=== PATIENT | male | born 1940 | race Caucasian/White ===

== ENCOUNTER → 2020-05-13 12:11 | Outpatient (BNVA) | payer MEDICARE, SELFPAY | PROVIDERS: PCP Nurse Practitioner Family; Referring Provider Nurse Practitioner Family; Visit Provider Internal Medicine | DX: E21.3 Hyperparathyroidism, unspecified (principal); M85.80 Other specified disorders of bone density and structure, unspecified site; E55.9 Vitamin D deficiency, unspecified; E04.2 Nontoxic multinodular goiter; Z79.899 Other long term (current) drug therapy | CPT/HCPCS: Q3014 ==

== ENCOUNTER 2020-07-15 06:19 | Outpatient (REF) | payer MEDICARE, SELFPAY ==
[2020-07-15 11:20] LABS: Hematocrit 47.8 % (42-52); Hemoglobin 15.6 g/dl (14.0-18.0); Mean Corpuscular HGB Conc 32.6 g/dl (31.0-36.0); Mean Corpuscular Hemoglobin 32.5 pg (27.0-33.0); Mean Corpuscular Volume 99.6 fL (80-98); Mean Platelet Volume 11.2 fL (9.4-12.4); Platelet Count 191 X10*3/uL (160-400); Red Cell Distribution Width 12.1 % (11.0-16.0); White Blood Count 9.5 X10*3/uL (4.8-10.8)
[2020-07-15 11:34] LABS: Alanine Aminotransferase 14 U/L (0-40); Albumin Level 3.9 g/dL (3.5-5.0); Alkaline Phosphatase 120 U/L (39-117); Anion Gap 13 (12-20); Aspartate Amino Transferase 20 U/L (5-37); Bilirubin Total 0.3 mg/dL (0.0-1.0); Blood Urea Nitrogen 24 mg/dL (9-16); Calcium 8.9 mg/dL (8.4-10.2); Carbon Dioxide 30 mmol/L (22-29); Chloride 103 mmol/L (96-108); Cholesterol 115 mg/dL; Estimated Glomerular Filt Rate 52; Glucose Fasting 100 mg/dL (60-99); HDL Cholesterol 43 mg/dL; LDL Cholesterol Calculated 62 mg/dl; Potassium 4.5 mmol/l (3.3-5.1); Sodium 141 mmol/L (135-145); Total Protein 7.2 g/dL (6.5-8.0); Triglycerides 50 mg/dL
== END 2020-07-15 06:20 | disposition home or self-care (01) ==
LOC: HO.HMGCLDS 06:19
PROVIDERS: PCP Nurse Practitioner Family; Visit Provider Nurse Practitioner Family
DX: Z13.89 Encounter for screening for other disorder (principal)
CPT/HCPCS: 36415; 80053; 80061; 85027

== ENCOUNTER 2020-07-15 11:19 | Outpatient (REF) | payer MEDICARE, SELFPAY | END 2020-07-15 11:20 | disposition home or self-care (01) | LOC: HO.LAB 11:19 | PROVIDERS: Visit Provider Internal Medicine | DX: Z20.822 Contact with and (suspected) exposure to COVID-19 (principal) | CPT/HCPCS: 36415; 80053; 80061; 85027; C9803; U0003 ==

== ENCOUNTER 2022-06-11 18:18 | Emergency (ER) | payer MEDICARE, SELFPAY ==
--- NOTE | ~2022-06-11 | XR_ITS ---
EXAMINATION: XR CHEST CLINICAL INFORMATION: Shortness of breath COMPARISON: None TECHNIQUE: Frontal view of the chest was obtained. FINDINGS: Lungs appear hyperinflated. No airspace consolidation. No pleural effusion or pneumothorax. Normal heart size. Mildly tortuous thoracic aorta. No evidence pulmonary edema. No acute osseous injury. 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 XR/XR chest 1V IMPRESSION: 1. No acute pulmonary process. 2. Hyperinflated lungs suggesting underlying COPD.
[2022-06-11 18:31] VITALS: BP 172/82; BP 176/80; PULSE 71; PULSE 78; RESP 20; TEMP 36.6; O2SAT 94; O2SAT 98; BMI 25.2
--- NOTE | 2022-06-11 18:34 | ED_ITS ---
HPI - SOB/Dyspnea General Chief Complaint: Dyspnea Stated Complaint: SOB for two weeks/Flu Like Symptoms Time Seen by Provider: 06/11/22 18:34 Source: patient Mode of arrival: ambulatory Limitations: no limitations History of Present Illness HPI Narrative: Patient history of CVA, anxiety, hypertension comes in for shortness of breath for last 2 weeks with flu-like symptoms with cough mostly clear phlegm no fever no chills no chest pain or palpitation Related Data Home Medications Medication Instructions Recorded Confirmed alprazolam 0.5 mg tablet mg PO 05/13/20 12/27/20 clopidogrel 75 mg tablet 75 mg PO DAILY 05/13/20 12/27/20 lisinopril 20 mg tablet 20 mg PO DAILY 05/13/20 12/27/20 simvastatin 20 mg tablet 20 mg PO BEDTIME 05/13/20 12/27/20 Previous Rx's Medication Instructions Recorded enqhlxpl-yaojewtdt-atsmdlkjl 3.5 4 drp otic (ear) left TID 10 days 12/03/21 mg-10,000 unit/mL-1 % ear #10 mL drops,susp albuterol sulfate 90 mcg/actuation 2 puff inhalation Q4-6H PRN 06/11/22 aerosol inhaler (ProAir HFA) shortness of breath or wheezing #8.5 grams amoxicillin 875 mg-potassium 1 tab PO BID #20 tabs 06/11/22 clavulanate 125 mg tablet benzonatate 200 mg capsule 200 mg PO TID PRN cough #30 caps 06/11/22 prednisone 20 mg tablet 40 mg PO DAILY #10 tabs 06/11/22 Allergies Allergy/AdvReac Type Severity Reaction Status Date / Time No Known Allergies Allergy Mild NONE Verified 12/03/21 12:43 cats dogs ragweed dust pollen Allergy Unknown Unknown Uncoded 12/03/21 12:43 Review of Systems Review of Systems: Yes all other systems are reviewed and are negative PMFSH Past Medical History Medical History Hyperparathyroidism Multinodular thyroid Osteopenia Osteoporosis Vitamin D deficiency Surgical History Hx of hernia repair Hx of prostatectomy Family History Family History Father No problems noted. Mother No problems noted. Social History Social History Alcohol intake: former Smoked in Last 30 Days: No Advance Directives: No Advance Directives Information Provided: No Physical Exam Vital Signs: Vital Signs: Last Vital Signs Temp 97.9 F 06/11/22 21:18 Pulse 88 06/11/22 21:26 Resp 18 06/11/22 21:26 BP 152/82 H 06/11/22 21:18 Pulse Ox 95 06/11/22 21:18 O2 Del Method 06/11/22 21:18 BMI result Body Mass Index 25.2 Appearance: Alert. Oriented X3. No acute distress. Eyes: PERRLA, No Nystagmus ENT: Pharynx normal. Oral Mucosa moist Neck: Normal inspection. Neck supple. CVS: Normal heart rate and rhythm. Pulses normal. Respiratory: No respiratory distress. Equal air entry bilateral, no wheezing/rales/rhonchi Abdomen: Soft and nontender. Bowel sounds are present, no mass palpable, no CVA tenderness Skin: Skin warm and dry. Normal skin color. Normal skin turgor. Extremities: No lower extremity edema. No calf tenderness Neuro: Oriented X 3. No motor deficit. No sensory deficit.No cerebellar signs , cranial nerves II-XII intact Medications Administered Discontinued Medications Generic Name Dose Route Start Last Admin Trade Name Alq PRN Reason Stop Dose Admin Albuterol Sulfate 2 puff 06/11/22 21:08 06/11/22 21:22 Albuterol Sulfate 90 Mcg 8 Gm Inhaler INHALE 06/11/22 21:09 2 puff ONCE ONE Administration Amoxicillin/Clavulanate Potassium 875 mg 06/11/22 21:28 06/11/22 21:37 Amoxicillin/Potassium Clav 875 Mg Tablet PO 06/11/22 21:29 875 mg ONCE ONE Administration Albuterol Sulfate 2.5 mg/ 0 mg 06/11/22 21:08 06/11/22 21:23 Albuterol/Ipratropium 3 ml INHALE 06/11/22 21:09 2.5 each ONCE ONE Administration Methylprednisolone Sodium Succinate 125 mg 06/11/22 21:08 06/11/22 21:36 Methylprednisolone Sod Succ 125 Mg/2 Ml Vial IVPUSH 06/11/22 21:09 125 mg ONCE ONE Administration Medical Decision Making Medical Decision Making [facility] Narrative: Patient labs workup negative COVID flu influenza negative chest x-ray showed chronic COPD likely patient has bronchitis causing the symptoms will discharge patient home on albuterol prednisone Augmentin Differential Diagnosis Bronchitis/CHF/pneumonia Lab Data [facility] Lab Attestation statement: I reviewed the patient's lab results. Result Diagrams: 06/11/22 19:15 06/11/22 19:15 Labs: Lab Results 06/11/22 06/11/22 06/11/22 Range/Units 19:15 19:15 19:15 WBC 9.6 (4.8-10.8) X10*3/uL RBC 4.53 L (4.60-5.80) X10*6/uL Hgb 14.4 (14.0-18.0) g/dl Hct 44.7 (42.0-52.0) % MCV 98.7 H (80.0-98.0) fL MCH 31.8 (27.0-33.0) pg MCHC 32.2 (31.0-36.0) g/dl RDW 11.9 (11.0-16.0) % Plt Count 223 (160-400) X10*3/uL MPV 10.7 (9.4-12.4) fL Immature Gran % (Auto) 0.5 H (0.0-0.4) % Neut % (Auto) 75.5 H (45-73) % Lymph % (Auto) 13.3 L (20-40) % [place] % (Auto) 8.7 (2-11) % Eos % (Auto) 1.3 (0-4) % Baso % (Auto) 0.7 (0-2) % Lymph # (Auto) 1.3 (1.2-4.9) X10*3/uL [place] # (Auto) 0.8 (0.1-1.2) X10*3/uL Eos # (Auto) 0.1 (0.0-0.4) X10*3/uL Baso # (Auto) 0.1 (0.0-0.2) X10*3/uL Abs Immat Gran (auto) 0.05 H (0.00-0.03) X10*3/uL Absolute Neuts (auto) 7.2 (2.0-8.3) x10*3/uL Absolute Nucleated RBC 0.000 (0.0-0.012) X10*3/uL Nucleated RBC % (auto) 0.0 (0.0-0.2) /100WBC PT 12.0 (10.0-13.1) SEC INR 1.0 (0.9-1.1) D-Dimer High Sensitivty NG/ML Sodium 140 (135-145) mmol/L Potassium 4.5 (3.3-5.1) mmol/L Chloride 106 (96-108) mmol/L Carbon Dioxide 27 (22-29) mmol/L Anion Gap 12 (12-20) BUN 24 H (9-16) mg/dL Creatinine 1.11 (0.5-1.4) mg/dL Estim Creat Clear Calc 52.1 Estimated GFR > 60 Random Glucose 103 (60-115) mg/dL Calcium 8.8 (8.4-10.2) mg/dL Total Bilirubin 0.5 (0.0-1.0) mg/dL AST 23 (5-37) U/L ALT 14 (0-40) U/L Alkaline Phosphatase 117 (39-117) U/L Troponin I High Sens (<3.5-35.0) ng/L B-Natriuretic Peptide (<100) pg/mL Total Protein 7.0 (6.5-8.0) g/dL Albumin 3.7 (3.5-5.0) g/dL Influenza Type A (PCR) (Negative) Influenza Type B (PCR) (Negative) RSV RNA Qual (PCR) (Negative) SARS-CoV-2 RNA (RT-PCR) (Negative) 06/11/22 06/11/22 06/11/22 Range/Units 19:15 19:15 19:15 WBC (4.8-10.8) X10*3/uL RBC (4.60-5.80) X10*6/uL Hgb (14.0-18.0) g/dl Hct (42.0-52.0) % MCV (80.0-98.0) fL MCH (27.0-33.0) pg MCHC (31.0-36.0) g/dl RDW (11.0-16.0) % Plt Count (160-400) X10*3/uL MPV (9.4-12.4) fL Immature Gran % (Auto) (0.0-0.4) % Neut % (Auto) (45-73) % Lymph % (Auto) (20-40) % [place] % (Auto) (2-11) % Eos % (Auto) (0-4) % Baso % (Auto) (0-2) % Lymph # (Auto) (1.2-4.9) X10*3/uL [place] # (Auto) (0.1-1.2) X10*3/uL Eos # (Auto) (0.0-0.4) X10*3/uL Baso # (Auto) (0.0-0.2) X10*3/uL Abs Immat Gran (auto) (0.00-0.03) X10*3/uL Absolute Neuts (auto) (2.0-8.3) x10*3/uL Absolute Nucleated RBC (0.0-0.012) X10*3/uL Nucleated RBC % (auto) (0.0-0.2) /100WBC PT (10.0-13.1) SEC INR (0.9-1.1) D-Dimer High Sensitivty NG/ML Sodium (135-145) mmol/L Potassium (3.3-5.1) mmol/L Chloride (96-108) mmol/L Carbon Dioxide (22-29) mmol/L Anion Gap (12-20) BUN (9-16) mg/dL Creatinine (0.5-1.4) mg/dL Estim Creat Clear Calc Estimated GFR Random Glucose (60-115) mg/dL Calcium (8.4-10.2) mg/dL Total Bilirubin (0.0-1.0) mg/dL AST (5-37) U/L ALT (0-40) U/L Alkaline Phosphatase (39-117) U/L Troponin I High Sens 18.4 (<3.5-35.0) ng/L B-Natriuretic Peptide 71 (<100) pg/mL Total Protein (6.5-8.0) g/dL Albumin (3.5-5.0) g/dL Influenza Type A (PCR) NEGATIVE (Negative) Influenza Type B (PCR) NEGATIVE (Negative) RSV RNA Qual (PCR) NEGATIVE (Negative) SARS-CoV-2 RNA (RT-PCR) NEGATIVE (Negative) 06/11/22 Range/Units 19:15 WBC (4.8-10.8) X10*3/uL RBC (4.60-5.80) X10*6/uL Hgb (14.0-18.0) g/dl Hct (42.0-52.0) % MCV (80.0-98.0) fL MCH (27.0-33.0) pg MCHC (31.0-36.0) g/dl RDW (11.0-16.0) % Plt Count (160-400) X10*3/uL MPV (9.4-12.4) fL Immature Gran % (Auto) (0.0-0.4) % Neut % (Auto) (45-73) % Lymph % (Auto) (20-40) % [place] % (Auto) (2-11) % Eos % (Auto) (0-4) % Baso % (Auto) (0-2) % Lymph # (Auto) (1.2-4.9) X10*3/uL [place] # (Auto) (0.1-1.2) X10*3/uL Eos # (Auto) (0.0-0.4) X10*3/uL Baso # (Auto) (0.0-0.2) X10*3/uL Abs Immat Gran (auto) (0.00-0.03) X10*3/uL Absolute Neuts (auto) (2.0-8.3) x10*3/uL Absolute Nucleated RBC (0.0-0.012) X10*3/uL Nucleated RBC % (auto) (0.0-0.2) /100WBC PT (10.0-13.1) SEC INR (0.9-1.1) D-Dimer High Sensitivty 3423 NG/ML Sodium (135-145) mmol/L Potassium (3.3-5.1) mmol/L Chloride (96-108) mmol/L Carbon Dioxide (22-29) mmol/L Anion Gap (12-20) BUN (9-16) mg/dL Creatinine (0.5-1.4) mg/dL Estim Creat Clear Calc Estimated GFR Random Glucose (60-115) mg/dL Calcium (8.4-10.2) mg/dL Total Bilirubin (0.0-1.0) mg/dL AST (5-37) U/L ALT (0-40) U/L Alkaline Phosphatase (39-117) U/L Troponin I High Sens (<3.5-35.0) ng/L B-Natriuretic Peptide (<100) pg/mL Total Protein (6.5-8.0) g/dL Albumin (3.5-5.0) g/dL Influenza Type A (PCR) (Negative) Influenza Type B (PCR) (Negative) RSV RNA Qual (PCR) (Negative) SARS-CoV-2 RNA (RT-PCR) (Negative) Discharge Plan Discharge Clinical Impression: Chronic bronchitis Patient Disposition: Home, Self-Care Instructions: Chronic Bronchitis (ED) Additional Instructions: take inhaler and antibiotics as prescribed Prednisone as prescribed Follow-up with PCP Prescriptions: New prednisone 20 mg tablet 40 mg PO DAILY Qty: 10 0RF albuterol sulfate [ProAir HFA] 90 mcg/actuation HFA aerosol inhaler 2 puff inhalation Q4-6H PRN (Reason: shortness of breath or wheezing) Qty: 8.5 0RF benzonatate 200 mg capsule 200 mg PO TID PRN (Reason: cough) Qty: 30 0RF amoxicillin-pot clavulanate 875-125 mg tablet 1 tab PO BID Qty: 20 0RF No Action rrzeskeb-piwejccnc-BR 3.5-10,000-1 mg/mL-unit/mL-% drops,suspension 4 drp otic (ear) left TID 10 Days Qty: 10 0RF simvastatin 20 mg tablet 20 mg PO BEDTIME alprazolam 0.5 mg tablet PO lisinopril 20 mg tablet 20 mg PO DAILY clopidogrel 75 mg tablet 75 mg PO DAILY Interventions: ED Discharge Assessment Last Done: 06/11/22 21:54 Discharge Date/Time: 06/11/22 21:58
--- NOTE | 2022-06-11 18:40 | ECG_ITS ---
Test Reason : DYSPNEA Blood Pressure : / mmHG Vent. Rate : 075 BPM Atrial Rate : 075 BPM P-R Int : 130 ms QRS Dur : 144 ms QT Int : 426 ms P-R-T Axes : 098 -84 056 degrees QTc Int : 475 ms Artifact in tracing Sinus rhythm with Premature atrial complexes Left axis deviation Right bundle branch block Abnormal ECG No previous ECGs available Referred By: Pawel Veronica Electronically Signed By:NICCI ELAINE
--- NOTE | 2022-06-11 18:58 | PC.NURSE ---
Addendum entered by Trudi Huertas RN 06/11/22 19:08: pt is alert and oriented resting in bed pt report sob, 92% oO2sat pt on continuos cardiac monitoring breathing equally unlabored Original Note: report received from FABIOLA Rodney
--- NOTE | 2022-06-11 19:02 | PC.NURSE ---
Patient a/ox4 . tcrla . heart rate regular at 70 beats per minute . breathing even and unlabored , wheezes noted in upper lobes . lower lobes clear throughout . skin pink warm and dry . abdomen soft not tender . patient reports a productive cough that has been producing clear phlegm . patient on panel monitor . family at bedside . Bedside Xray done . Family and patient aware of plan of care .
[2022-06-11 19:09] VITALS: BP 147/70; PULSE 72; RESP 23; TEMP 36.8; O2SAT 92
[2022-06-11 19:20] LABS: MANUAL DIFF FLAG NO
[2022-06-11 19:22] LABS: Basophils Absolute Auto 0.1 X10*3/uL (0.0-0.2); Basophils Percent Auto 0.7 % (0-2); Eosinophils Absolute Auto 0.1 X10*3/uL (0.0-0.4); Eosinophils Percent Auto 1.3 % (0-4); Hematocrit 44.7 % (42.0-52.0); Hemoglobin 14.4 g/dl (14.0-18.0); Imm Gran Abs Auto 0.05 X10*3/uL (0.00-0.03); Imm Gran Pct Auto 0.5 % (0.0-0.4); Lymphocytes Absolute Auto 1.3 X10*3/uL (1.2-4.9); Lymphocytes Percent Auto 13.3 % (20-40); Mean Corpuscular HGB Conc 32.2 g/dl (31.0-36.0); Mean Corpuscular Hemoglobin 31.8 pg (27.0-33.0); Mean Corpuscular Volume 98.7 fL (80.0-98.0); Mean Platelet Volume 10.7 fL (9.4-12.4); Monocytes Absolute Auto 0.8 X10*3/uL (0.1-1.2); Monocytes Percent Auto 8.7 % (2-11); Neutrophils Absolute Auto 7.2 x10*3/uL (2.0-8.3); Neutrophils Percent Auto 75.5 % (45-73); Platelet Count 223 X10*3/uL (160-400); Red Blood Count 4.53 X10*6/uL (4.60-5.80); Red Cell Distribution Width 11.9 % (11.0-16.0); White Blood Count 9.6 X10*3/uL (4.8-10.8)
[2022-06-11 19:29] LABS: D Dimer High Sensitivity 3423 NG/ML
[2022-06-11 19:47] LABS: B Type Natriuretic Peptide 71 pg/mL (<100); Troponin-I High Sensitivity 18.4 ng/L (<3.5-35.0)
[2022-06-11 19:49] LABS: Alanine Aminotransferase 14 U/L (0-40); Albumin Level 3.7 g/dL (3.5-5.0); Alkaline Phosphatase 117 U/L (39-117); Anion Gap 12 (12-20); Aspartate Amino Transferase 23 U/L (5-37); Bilirubin Total 0.5 mg/dL (0.0-1.0); Blood Urea Nitrogen 24 mg/dL (9-16); Calcium 8.8 mg/dL (8.4-10.2); Carbon Dioxide 27 mmol/L (22-29); Chloride 106 mmol/L (96-108); Creatinine Clr Calc Pharmacy 52.1; Estimated Glomerular Filt Rate > 60; Glucose Random 103 mg/dL (60-115); Potassium 4.5 mmol/L (3.3-5.1); Sodium 140 mmol/L (135-145)
[2022-06-11 20:03] LABS: Influenza A PCR NEGATIVE (Negative); Influenza B PCR NEGATIVE (Negative); Resp Syncy Virus RNA Qual PCR NEGATIVE (Negative); SARS COV2 PCR INHOUSE NEGATIVE (Negative)
[2022-06-11 21:18] VITALS: BP 152/82; PULSE 79; RESP 13; TEMP 36.6; O2SAT 95
[2022-06-11] MEDS: Albuterol Sulfate 90 MCG 8 GM INHALER 2 PUFF INHALE (21:22)
[2022-06-11] MEDS: Albuterol Sulfate 2.5 MG, Albuterol/Iprat 2.5/0.5MG 3 ML 3 ML INHALE (21:23)
[2022-06-11 21:26] VITALS: PULSE 88; RESP 18; O2SAT 94
[2022-06-11] MEDS: methylPREDNISolone Sod Succ 125 MG/2 ML VIAL IVPUSH (21:36)
[2022-06-11] MEDS: Amoxicillin/Potassium Clav 875 MG TABLET PO (21:37)
== END 2022-06-11 21:58 | disposition home or self-care (01) ==
PROVIDERS: Emergency Provider Internal Medicine; PCP Nurse Practitioner Family
DX: J42 Unspecified chronic bronchitis (principal); R06.02 Shortness of breath; R05.9 Cough, unspecified; R50.9 Fever, unspecified; Z20.822 Contact with and (suspected) exposure to COVID-19; Z79.899 Other long term (current) drug therapy
CPT/HCPCS: 0241U; 36415; 71045; 80053; 83880; 84484; 85025; 85379; 85610; 93005; 94640; 94664; 96374; 99284; 99285; J2930

== ENCOUNTER 2022-07-02 07:56 | Outpatient (REF) | payer MEDICARE, SELFPAY ==
--- NOTE | ~2022-07-02 | CT_ITS ---
EXAMINATION: CT CHEST WITHOUT CONTRAST CLINICAL INFORMATION: Dyspnea. COMPARISON: Chest x-ray 06/11/2022 TECHNIQUE: Multidetector volumetric CT imaging of the chest was done. Axial MIP volume rendering provided. Sagittal and lumbar kyphotic deformity from an old fracture reformatted images were obtained. This CT examination was performed using dose optimization techniques as appropriate, variously including the following: *Automated exposure control *Adjustment of mA and/or kV according to patient size (this includes techniques or standardized protocols for targeted exams where dose is matched to indication/reason for exam; i.e. 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 LUNGS: Diffuse centrilobular emphysematous changes of lungs with plate-like atelectasis in the superior segment left lower and right middle lobes. There is abnormal pulmonary nodule, mass or consolidation. No interstitial thickening, bronchiectasis or bronchial wall thickening. MEDIASTINUM: Heart size and the great vessels are normal caliber. Small shotty lymph nodes are seen in the mediastinum. There is oimp-sd-xknzbvdd coronary artery calcifications. No pericardial effusion seen. The thyroid lobes are symmetrical and normal. CORONARY ARTERY CALCIFICATION: Dszw-qw-mkkjkllv coronary artery calcifications are present. PLEURA: There is no pleural effusion. No pleural mass or thickening. AXILLA: There are small shotty lymph nodes in the axilla. The chest wall is unremarkable. UPPER ABDOMEN: The liver contour is slightly lobulated but otherwise normal size. No focal lesion or intrahepatic ductal dilatation seen. No radiopaque gallstones or renal calculi seen. There is an exophytic cyst upper pole right kidney. 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 OSSEOUS STRUCTURES: There is thoracolumbar kyphotic deformity with retrolisthesis of L1 over L2. Moderate ventral bridging osteophytosis is noted in the thoracic spine. CT/CT chest wo IV con IMPRESSION: 1. Diffuse centrilobular emphysema with plate-like atelectasis in the superior segment left lower lobe and right middle lobe.` No acute pneumonic process or pulmonary nodules seen. 2. 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 Fleischner guidelines were followed.
== END 2022-07-02 07:57 | disposition home or self-care (01) ==
LOC: HO.CT 07:56
PROVIDERS: PCP Internal Medicine; Visit Provider Internal Medicine
DX: R06.09 Other forms of dyspnea (principal)
CPT/HCPCS: 71250

== ENCOUNTER → 2022-08-25 13:39 | Outpatient (BNVA) | payer MEDICARE, SELFPAY | PROVIDERS: PCP Internal Medicine; Visit Provider Internal Medicine | DX: J44.9 Chronic obstructive pulmonary disease, unspecified (principal); J43.9 Emphysema, unspecified | CPT/HCPCS: 99202 ==

== ENCOUNTER 2022-09-03 13:26 | Outpatient (REF) | payer MEDICARE, SELFPAY ==
--- NOTE | 2022-09-03 17:25 | PFT_ITS ---
INDICATION: Emphysema. SPIROMETRY: FEV1 to FVC 29% with an FEV1 of 1.21 L, which is 45% predicted, and FVC of 4.11 L, which is 109% predicted. No significant response to bronchodilator is noted. Maximum voluntary ventilation of 31% predicted. LUNG VOLUMES: Total lung capacity 105% of predicted with residual volume 130% of predicted. DIFFUSION CAPACITY: DLCO 38% of predicted. COMPARISON: None. INTERPRETATION: There is an obstructive ventilatory defect consistent with severe chronic obstructive pulmonary disease. No significant response to bronchodilator is noted. Severe decrease in the maximum voluntary ventilation secondary to deconditioning and also worsening dynamic inspiratory capacity. Lung volumes with significant air trapping secondary to the emphysema. There is also severe diffusion impairment. Clinical correlation warranted. MD FOX Pulido/MODL / [id number]
== END 2022-09-03 13:27 | disposition home or self-care (01) ==
LOC: HO.RESP 13:26
PROVIDERS: Visit Provider Internal Medicine
DX: J43.9 Emphysema, unspecified (principal)
CPT/HCPCS: 94060; 94727; 94729

== ENCOUNTER 2022-09-13 07:20 | Emergency (ER) | payer MEDICARE, SELFPAY ==
--- NOTE | ~2022-09-13 | XR_ITS ---
EXAMINATION: XR FOOT, LEFT CLINICAL INFORMATION: Cellulitis. COMPARISON: None available. TECHNIQUE: AP, lateral, and oblique views of the left foot. FINDINGS: There is generalized osteopenia. No overt fracture is seen. Mild interphalangeal degenerative joint changes are seen. Bridging ossification is seen between the second through fourth metatarsals. The tarsal bones are normally aligned. Tiny plantar and retrocalcaneal spurs are seen. Mild to moderate soft tissue swelling is seen most pronounced dorsally overlying of the metatarsals. XR/XR foot LT 2V IMPRESSION: Nonacute deformity of the second through fourth metatarsals likely representing sequelae of previous fractures. No definitive acute fracture. Mild to moderate soft tissue swelling.
[2022-09-13 07:26] VITALS: BP 180/70; PULSE 83; RESP 18; TEMP 36.6; O2SAT 97; BMI 25.1
--- NOTE | 2022-09-13 07:46 | ED.LOWEXIN ---
HPI - Extremity Injury (Lower) General Chief Complaint: Extremity Injury, Lower Stated Complaint: ? L foot infection Time Seen by Provider: 09/13/22 07:38 Source: patient and family Mode of arrival: ambulatory Limitations: no limitations History of Present Illness HPI Narrative: 82-year-old male came in for evaluation of left foot redness and possible infection. Started for 1 day partially improved after soaking it in warm water, no fever, no chills, no trauma to the left foot patient was walking with a wrong shoe in the left foot a day before. Related Data Home Medications Medication Instructions Recorded Confirmed alprazolam 0.5 mg tablet mg PO 05/13/20 12/27/20 clopidogrel 75 mg tablet 75 mg PO DAILY 05/13/20 12/27/20 lisinopril 20 mg tablet 20 mg PO DAILY 05/13/20 12/27/20 simvastatin 20 mg tablet 20 mg PO BEDTIME 05/13/20 12/27/20 aspirin 81 mg tablet,delayed 81 mg PO DAILY 08/25/22 release cholecalciferol (vitamin D3) 25 25 mcg PO DAILY 08/25/22 mcg (1,000 unit) capsule Previous Rx's Medication Instructions Recorded albuterol sulfate 90 mcg/actuation 2 puff inhalation Q4-6H PRN 06/11/22 aerosol inhaler (ProAir HFA) shortness of breath or wheezing #8.5 grams doxycycline hyclate 100 mg tablet 100 mg PO BID #14 tabs 09/13/22 Allergies Allergy/AdvReac Type Severity Reaction Status Date / Time No Known Allergies Allergy Mild NONE Verified 08/25/22 15:52 cats dogs ragweed dust pollen Allergy Unknown Unknown Uncoded 08/25/22 15:52 Review of Systems Review of Systems: All other systems are reviewed and are negative Constitutional: Reports as per HPI and Reports no additional constitutional complaints Eyes: Reports as per HPI and Reports no additional eye complaints Reports system reviewed and no additional complaints, except as documented Cardiovascular: Reports as per HPI and Reports no additional cardiovascular complaints Respiratory: Reports as per HPI and Reports no additional respiratory complaints Gastrointestinal: Reports as per HPI and Reports no additional gastrointestinal complaints Genitourinary: Reports no additional female genitourinary complaints Musculoskeletal: Reports no additional musculoskeletal complaints Skin/Breast: Reports system reviewed and no additional complaints, except as docu Psychiatric: Reports no additional psychiatric complaints Endocrine: Reports no additional endocrine complaints Hematologic/Lymphatic: Reports no additional hematologic/lymphatic complaints Allergic/Immunologic: Reports no additional allergic/immunologic complaints Reports system reviewed and no additional complaints, except as documented and Reports Abnormal speech present FOR[facility]LY [facility], [facility] Past Medical History Medical History COPD (chronic obstructive pulmonary disease) Hyperparathyroidism Multinodular thyroid Osteopenia Osteoporosis Pulmonary emphysema Vitamin D deficiency Surgical History Hx of hernia repair Hx of prostatectomy Family History Family History Father No problems noted. Mother No problems noted. Social History Social History Alcohol intake: never Patient Tobacco Use Status: Former Tobacco user Smoked in Last 30 Days: No Use of substances other than those prescribed or required for medical reasons: No Advance Directives: No Advance Directives Information Provided: No Physical Exam Vital Signs: Vital Signs: Last Vital Signs Temp 98.3 F 09/13/22 08:40 Pulse 59 09/13/22 08:40 Resp 16 09/13/22 08:40 BP 140/69 H 09/13/22 08:40 Pulse Ox 97 09/13/22 08:40 O2 Del Method 09/13/22 08:40 BMI result Body Mass Index 25.1 Vital signs have been reviewed as appeared to be correct. Blood pressure elevated. Heart rate normal. Respiration rate normal. Temperature normal. Oxygen saturation normal. Appearance: Alert. Oriented X3. No acute distress. Head: Normal external exam. Normocephalic. Atraumatic. No Quiroz signs noted. No raccoon eyes noted Eyes: PERRLA. EOMI. Conjunctiva and sclera normal. Eyelids normal. ENT: TM's Normal. Pharynx normal. Uvula midline. Moist mucous membranes. No trismus noted. No drooling noted. No muffled voice noted. Neck: Normal inspection. Neck supple. FROM. No adenopathy. Thyroid Normal. No meningeal signs. No neck mass noted. CVS: Normal heart rate and rhythm. Heart sound normal. No murmurs noted. Pulses normal throughout. Respiratory: No respiratory distress. Painless inspiration. Breath sounds normal. No wheezes/rales/rhonchi noted. Chest nontender. No accessory muscle usage noted or decreased air movement noted. Abdomen: Soft and nontender. Bowel sounds normal in all 4 quadrants. No distention noted. No organomegaly noted. No visible injury noted. Back: No CVA tenderness. Full range of motion noted. Skin: Skin warm and dry. Normal skin color. Normal skin turgor. No rashes/lesions/lacerations noted. Extremities: 4 x 4 cm area of redness and hotness on the top of the left foot, no tenderness, step-off, neurovascularly intact. Neuro: Oriented X 3. Cranial nerve exam: II-XII are grossly intact No motor deficit. No sensory deficit. Reflexes normal. Course Course Course Narrative: Left foot cellulitis with no complication, no sirs criteria, we will start the patient on doxycycline for 7 days and close follow-up with PCP. Medical Decision Making Differential Diagnosis Differential Diagnoses: The differential diagnosis associated with the presentation includes (Left foot cellulitis, sepsis, osteomyelitis, underlying fracture, gout.) Lab Data MDM Lab Attestation statement: I reviewed the patient's lab results. 09/13/22 08:00 09/13/22 08:00 Labs: Lab Results 09/13/22 09/13/22 09/13/22 Range/Units 08:00 08:00 08:00 WBC 7.8 (4.8-10.8) X10*3/uL RBC 4.80 (4.60-5.80) X10*6/uL Hgb 15.1 (14.0-18.0) g/dl Hct 47.6 (42.0-52.0) % MCV 99.2 H (80.0-98.0) fL MCH 31.5 (27.0-33.0) pg MCHC 31.7 (31.0-36.0) g/dl RDW 12.6 (11.0-16.0) % Plt Count 181 (160-400) X10*3/uL MPV 10.9 (9.4-12.4) fL Immature Gran % (Auto) 1.0 H (0.0-0.4) % Neut % (Auto) 71.0 (45-73) % Lymph % (Auto) 13.8 L (20-40) % [place] % (Auto) 10.5 (2-11) % Eos % (Auto) 2.8 (0-4) % Baso % (Auto) 0.9 (0-2) % Lymph # (Auto) 1.1 L (1.2-4.9) X10*3/uL [place] # (Auto) 0.8 (0.1-1.2) X10*3/uL Eos # (Auto) 0.2 (0.0-0.4) X10*3/uL Baso # (Auto) 0.1 (0.0-0.2) X10*3/uL Abs Immat Gran (auto) 0.08 H (0.00-0.03) X10*3/uL Absolute Neuts (auto) 5.5 (2.0-8.3) x10*3/uL Absolute Nucleated RBC 0.000 (0.0-0.012) X10*3/uL Nucleated RBC % (auto) 0.0 (0.0-0.2) /100WBC Sodium 142 (135-145) mmol/L Potassium 4.6 (3.3-5.1) mmol/L Chloride 106 (96-108) mmol/L Carbon Dioxide 29 (22-29) mmol/L Anion Gap 12 (12-20) BUN 25 H (9-16) mg/dL Creatinine 1.21 (0.5-1.4) mg/dL Estim Creat Clear Calc 47.0 Estimated GFR 57 Random Glucose 77 (60-115) mg/dL Lactic Acid 0.9 (0.5-2.0) mmol/L Calcium 9.3 (8.4-10.2) mg/dL Independent Interpretation I performed an independent interpretation of an: Plain X-Ray (Left foot: Healing old fractures no obvious acute fracture.) Radiology Impression Discussion of test interpretation with radiology: I have reviewed the radiologist's reading. Discharge Plan Discharge Clinical Impression: Cellulitis of foot, left Patient Disposition: Home, Self-Care Instructions: Cellulitis (ED) Prescriptions: New doxycycline hyclate 100 mg tablet 100 mg PO BID Qty: 14 0RF No Action albuterol sulfate [ProAir HFA] 90 mcg/actuation HFA aerosol inhaler 2 puff inhalation Q4-6H PRN (Reason: shortness of breath or wheezing) Qty: 8.5 0RF simvastatin 20 mg tablet 20 mg PO BEDTIME alprazolam 0.5 mg tablet PO lisinopril 20 mg tablet 20 mg PO DAILY clopidogrel 75 mg tablet 75 mg PO DAILY cholecalciferol (vitamin D3) 25 mcg (1,000 unit) capsule 25 mcg PO DAILY aspirin 81 mg tablet,delayed release (DR/EC) 81 mg PO DAILY Referrals: Eduardo Shaffer MD [Primary Care Provider] -
[2022-09-13 08:22] LABS: MANUAL DIFF FLAG NO
[2022-09-13 08:23] LABS: Basophils Absolute Auto 0.1 X10*3/uL (0.0-0.2); Basophils Percent Auto 0.9 % (0-2); Eosinophils Absolute Auto 0.2 X10*3/uL (0.0-0.4); Eosinophils Percent Auto 2.8 % (0-4); Hematocrit 47.6 % (42.0-52.0); Hemoglobin 15.1 g/dl (14.0-18.0); Imm Gran Abs Auto 0.08 X10*3/uL (0.00-0.03); Lymphocytes Absolute Auto 1.1 X10*3/uL (1.2-4.9); Lymphocytes Percent Auto 13.8 % (20-40); Mean Corpuscular HGB Conc 31.7 g/dl (31.0-36.0); Mean Corpuscular Hemoglobin 31.5 pg (27.0-33.0); Mean Corpuscular Volume 99.2 fL (80.0-98.0); Mean Platelet Volume 10.9 fL (9.4-12.4); Monocytes Absolute Auto 0.8 X10*3/uL (0.1-1.2); Monocytes Percent Auto 10.5 % (2-11); Neutrophils Absolute Auto 5.5 x10*3/uL (2.0-8.3); Platelet Count 181 X10*3/uL (160-400); Red Cell Distribution Width 12.6 % (11.0-16.0); White Blood Count 7.8 X10*3/uL (4.8-10.8)
[2022-09-13 08:33] LABS: Lactic Acid 0.9 mmol/L (0.5-2.0)
--- NOTE | 2022-09-13 08:35 | PC.NURSE ---
pt has l foot swelling/redness with 2+ pitting edema. +pp via doppler. aware.
[2022-09-13 08:36] LABS: Anion Gap 12 (12-20); Blood Urea Nitrogen 25 mg/dL (9-16); Calcium 9.3 mg/dL (8.4-10.2); Carbon Dioxide 29 mmol/L (22-29); Chloride 106 mmol/L (96-108); Estimated Glomerular Filt Rate 57; Glucose Random 77 mg/dL (60-115); Potassium 4.6 mmol/L (3.3-5.1); Sodium 142 mmol/L (135-145)
[2022-09-13 08:40] VITALS: BP 140/69; PULSE 59; RESP 16; TEMP 36.8; O2SAT 97
== END 2022-09-13 10:41 | disposition home or self-care (01) ==
PROVIDERS: Emergency Provider Emergency Medicine; PCP Internal Medicine
DX: L03.116 Cellulitis of left lower limb (principal); Z87.891 Personal history of nicotine dependence; Z79.899 Other long term (current) drug therapy
CPT/HCPCS: 36415; 73620; 80048; 83605; 85025; 87040; 99284

== ENCOUNTER → 2022-10-01 13:09 | Outpatient (BNVA) | payer MEDICARE, SELFPAY | PROVIDERS: PCP Nurse Practitioner Family; Visit Provider Internal Medicine | DX: J44.9 Chronic obstructive pulmonary disease, unspecified (principal); J43.9 Emphysema, unspecified | CPT/HCPCS: 99212 ==

== ENCOUNTER 2022-11-22 08:15 | Emergency (ER) | payer MEDICARE, SELFPAY ==
--- NOTE | ~2022-11-22 | CT_ITS ---
EXAMINATION: CT HEAD WITHOUT CONTRAST CLINICAL INFORMATION: AMS COMPARISON: None available. TECHNIQUE: Contiguous axial imaging was performed from the skull base to vertex without intravenous administration of contrast. This CT examination was performed using dose optimization techniques as appropriate, variously including the following: *Automated exposure control *Adjustment of mA and/or kV according to patient size (this includes techniques or standardized protocols for targeted exams where dose is matched to indication/reason for exam; i.e. extremities or head) *Use of iterative reconstruction technique DLP: 665 mGy-cm FINDINGS: There is no acute intra-axial, extra-axial bleed, masses, collection midline shift. There is no acute infarction evolution. There is no edema. The c[place] to white matter difference is maintained. The lateral ventricles are symmetrical in size and configuration without enlargement. Bone windows reveal no calvarial abnormality. There is small polyp or retention cyst left maxillary sinus. The paranasal sinuses and mastoid air cells are well-aerated. CT/CT head/brain wo IV con IMPRESSION: No acute intracranial process seen
[2022-11-22 08:30] VITALS: BP 126/85; PULSE 61; RESP 20; TEMP 36.1; O2SAT 90; BMI 24.8
[2022-11-22 09:06] LABS: MANUAL DIFF FLAG NO
[2022-11-22 09:07] LABS: Basophils Absolute Auto 0.1 X10*3/uL (0.0-0.2); Eosinophils Absolute Auto 0.2 X10*3/uL (0.0-0.4); Eosinophils Percent Auto 2.9 % (0-4); Hematocrit 47.8 % (42.0-52.0); Hemoglobin 15.1 g/dl (14.0-18.0); Imm Gran Abs Auto 0.05 X10*3/uL (0.00-0.03); Imm Gran Pct Auto 0.6 % (0.0-0.4); Lymphocytes Absolute Auto 1.2 X10*3/uL (1.2-4.9); Lymphocytes Percent Auto 15.8 % (20-40); Mean Corpuscular HGB Conc 31.6 g/dl (31.0-36.0); Mean Corpuscular Hemoglobin 31.4 pg (27.0-33.0); Mean Corpuscular Volume 99.4 fL (80.0-98.0); Monocytes Absolute Auto 0.7 X10*3/uL (0.1-1.2); Neutrophils Absolute Auto 5.6 x10*3/uL (2.0-8.3); Neutrophils Percent Auto 70.7 % (45-73); Platelet Count 184 X10*3/uL (160-400); Red Blood Count 4.81 X10*6/uL (4.60-5.80); Red Cell Distribution Width 12.3 % (11.0-16.0); White Blood Count 7.9 X10*3/uL (4.8-10.8)
[2022-11-22 09:13] LABS: Prothrombin Time 11.4 SEC (10.0-13.1)
[2022-11-22 09:16] LABS: Partial Thromboplastin Time 28.6 SEC (26.0-36.4)
[2022-11-22 09:31] LABS: Alanine Aminotransferase 14 U/L (0-40); Albumin Level 3.7 g/dL (3.5-5.0); Alkaline Phosphatase 108 U/L (39-117); Anion Gap 11 (12-20); Aspartate Amino Transferase 20 U/L (5-37); Blood Urea Nitrogen 20 mg/dL (9-16); Calcium 9.6 mg/dL (8.4-10.2); Carbon Dioxide 31 mmol/L (22-29); Chloride 106 mmol/L (96-108); Creatinine Clr Calc Pharmacy 43.5; Estimated Glomerular Filt Rate 51; Glucose Random 97 mg/dL (60-115); Magnesium 2.1 mg/dL (1.6-2.6); Potassium 4.6 mmol/L (3.3-5.1); Sodium 143 mmol/L (135-145)
--- NOTE | 2022-11-22 09:44 | ED_ITS ---
HPI - Altered Mental Status General Chief Complaint: Altered Mental Status Stated Complaint: AMS, fall, unsteady on feet, aggressive per EMS Time Seen by Provider: 11/22/22 08:20 Source: patient Mode of arrival: ambulatory Limitations: no limitations History of Present Illness HPI narrative: Patient of COPD using inhaler was upset with his walks with a walker was walking without walker slump down without any significant head injury was upset with the family was shouting when EMS came he was not responding to them seems to slightly confused and angry on arrival patient alert oriented x3 does not want to stay with his Related Data Home Medications Medication Instructions Recorded Confirmed alprazolam 0.5 mg tablet mg PO 05/13/20 10/01/22 clopidogrel 75 mg tablet 75 mg PO DAILY 05/13/20 10/01/22 lisinopril 20 mg tablet 20 mg PO DAILY 05/13/20 10/01/22 simvastatin 20 mg tablet 20 mg PO BEDTIME 05/13/20 10/01/22 aspirin 81 mg tablet,delayed 81 mg PO DAILY 08/25/22 10/01/22 release cholecalciferol (vitamin D3) 25 25 mcg PO DAILY 08/25/22 10/01/22 mcg (1,000 unit) capsule fluticasone 250 mcg-salmeterol 50 1 inh inhalation BID 10/01/22 10/01/22 mcg/dose blistr powdr for inhalation (Wixela Inhub) Previous Rx's Medication Instructions Recorded albuterol sulfate 90 mcg/actuation 2 puff inhalation Q4-6H PRN 06/11/22 aerosol inhaler (ProAir HFA) shortness of breath or wheezing #8.5 grams tiotropium bromide 2.5 2 puff inhalation QAM COPD 30 11/02/22 mcg/actuation mist for inhalation days #4 grams (Spiriva Respimat) Allergies Allergy/AdvReac Type Severity Reaction Status Date / Time No Known Allergies Allergy Mild NONE Verified 10/01/22 13:50 cats dogs ragweed dust pollen Allergy Unknown Unknown Uncoded 10/01/22 13:50 Review of Systems Review of Systems: Yes all other systems are reviewed and are negative PMFSH Past Medical History Medical History COPD (chronic obstructive pulmonary disease) Hyperparathyroidism Multinodular thyroid Osteopenia Osteoporosis Pulmonary emphysema Vitamin D deficiency Surgical History Hx of hernia repair Hx of prostatectomy Family History Family History Father No problems noted. Mother No problems noted. Social History Social History Alcohol intake: never Patient Tobacco Use Status: Former Tobacco user Advance Directives: No Advance Directives Information Provided: Yes Physical Exam ED Vital Signs: Vital Signs - 24 hr 11/22/22 08:30 11/22/22 11:47 Temperature 97 F Pulse Rate 61 Respiratory Rate 20 Blood Pressure 126/85 Pulse Oximetry 90 L 94 Oxygen Delivery Method Room Air Room Air BMI result Body Mass Index 24.8 Appearance: Alert. Oriented X3. No acute distress. Eyes: PERRLA, No Nystagmus HEENT: Pharynx normal. Oral Mucosa moist ATNC Neck: Normal inspection. Neck supple. CVS: Normal heart rate and rhythm. Pulses normal. Respiratory: No respiratory distress. Equal air entry bilateral, prolonged expiration Abdomen: Soft and nontender. Bowel sounds are present, no mass palpable, no CVA tenderness Skin: Skin warm and dry. Normal skin color. Normal skin turgor. Extremities: No lower extremity edema. No calf tenderness hip stable Neuro: Oriented X 3. No motor deficit. No sensory deficit. Medications Administered Discontinued Medications Generic Name Dose Route Start Last Admin Trade Name Freq PRN Reason Stop Dose Admin Albuterol Sulfate 2.5 mg/ 0 mg 11/22/22 11:28 11/22/22 12:16 Albuterol/Ipratropium 3 ml INHALE 11/22/22 11:29 Not Given ONCE ONE Medical Decision Making Medical Decision Making MDM Narrative: Patient family situation and happy with his COPD using inhaler does not k now how to use it has not use inhaler today saturation dropped to 90% when ambulating will educate him how to use nebulizing treatment correctional casework specialist was involved for help at home will send the VNA for now patient has a plan to see dialysis patient care technician Lab Data MDM Lab Attestation statement: I reviewed the patient's lab results. 11/22/22 09:00 11/22/22 09:00 Labs: Lab Results 11/22/22 11/22/22 11/22/22 Range/Units 09:00 09:00 09:00 WBC 7.9 (4.8-10.8) X10*3/uL RBC 4.81 (4.60-5.80) X10*6/uL Hgb 15.1 (14.0-18.0) g/dl Hct 47.8 (42.0-52.0) % MCV 99.4 H (80.0-98.0) fL MCH 31.4 (27.0-33.0) pg MCHC 31.6 (31.0-36.0) g/dl RDW 12.3 (11.0-16.0) % Plt Count 184 (160-400) X10*3/uL MPV 11.0 (9.4-12.4) fL Immature Gran % (Auto) 0.6 H (0.0-0.4) % Neut % (Auto) 70.7 (45-73) % Lymph % (Auto) 15.8 L (20-40) % [place] % (Auto) 9.0 (2-11) % Eos % (Auto) 2.9 (0-4) % Baso % (Auto) 1.0 (0-2) % Lymph # (Auto) 1.2 (1.2-4.9) X10*3/uL [place] # (Auto) 0.7 (0.1-1.2) X10*3/uL Eos # (Auto) 0.2 (0.0-0.4) X10*3/uL Baso # (Auto) 0.1 (0.0-0.2) X10*3/uL Abs Immat Gran (auto) 0.05 H (0.00-0.03) X10*3/uL Absolute Neuts (auto) 5.6 (2.0-8.3) x10*3/uL Absolute Nucleated RBC 0.000 (0.0-0.012) X10*3/uL Nucleated RBC % (auto) 0.0 (0.0-0.2) /100WBC PT 11.4 (10.0-13.1) SEC INR 1.0 (0.9-1.1) APTT 28.6 (26.0-36.4) SEC Sodium 143 (135-145) mmol/L Potassium 4.6 (3.3-5.1) mmol/L Chloride 106 (96-108) mmol/L Carbon Dioxide 31 H (22-29) mmol/L Anion Gap 11 L (12-20) BUN 20 H (9-16) mg/dL Creatinine 1.35 (0.5-1.4) mg/dL Estim Creat Clear Calc 43.5 Estimated GFR 51 Random Glucose 97 (60-115) mg/dL Lactic Acid (0.5-2.0) mmol/L Calcium 9.6 (8.4-10.2) mg/dL Magnesium 2.1 (1.6-2.6) mg/dL Total Bilirubin 1.0 (0.0-1.0) mg/dL AST 20 (5-37) U/L ALT 14 (0-40) U/L Alkaline Phosphatase 108 (39-117) U/L Total Protein 7.0 (6.5-8.0) g/dL Albumin 3.7 (3.5-5.0) g/dL 11/22/22 Range/Units 09:27 WBC (4.8-10.8) X10*3/uL RBC (4.60-5.80) X10*6/uL Hgb (14.0-18.0) g/dl Hct (42.0-52.0) % MCV (80.0-98.0) fL MCH (27.0-33.0) pg MCHC (31.0-36.0) g/dl RDW (11.0-16.0) % Plt Count (160-400) X10*3/uL MPV (9.4-12.4) fL Immature Gran % (Auto) (0.0-0.4) % Neut % (Auto) (45-73) % Lymph % (Auto) (20-40) % [place] % (Auto) (2-11) % Eos % (Auto) (0-4) % Baso % (Auto) (0-2) % Lymph # (Auto) (1.2-4.9) X10*3/uL [place] # (Auto) (0.1-1.2) X10*3/uL Eos # (Auto) (0.0-0.4) X10*3/uL Baso # (Auto) (0.0-0.2) X10*3/uL Abs Immat Gran (auto) (0.00-0.03) X10*3/uL Absolute Neuts (auto) (2.0-8.3) x10*3/uL Absolute Nucleated RBC (0.0-0.012) X10*3/uL Nucleated RBC % (auto) (0.0-0.2) /100WBC PT (10.0-13.1) SEC INR (0.9-1.1) APTT (26.0-36.4) SEC Sodium (135-145) mmol/L Potassium (3.3-5.1) mmol/L Chloride (96-108) mmol/L Carbon Dioxide (22-29) mmol/L Anion Gap (12-20) BUN (9-16) mg/dL Creatinine (0.5-1.4) mg/dL Estim Creat Clear Calc Estimated GFR Random Glucose (60-115) mg/dL Lactic Acid 0.9 (0.5-2.0) mmol/L Calcium (8.4-10.2) mg/dL Magnesium (1.6-2.6) mg/dL Total Bilirubin (0.0-1.0) mg/dL AST (5-37) U/L ALT (0-40) U/L Alkaline Phosphatase (39-117) U/L Total Protein (6.5-8.0) g/dL Albumin (3.5-5.0) g/dL Discharge Plan Discharge Clinical Impression: Mood disorder, COPD (chronic obstructive pulmonary disease) Patient Disposition: Home, Self-Care Instructions: Mood Disorders (ED), COPD (Chronic Obstructive Pulmonary Disease) (ED) Additional Instructions: Care and cautions as advised Use your inhaler as prescribed Follow with PCP and dialysis patient care technician Follow-up with PCP Prescriptions: No Action Spiriva Respimat 2.5 mcg/actuation mist 2 puff inhalation QAM 30 Days Qty: 4 3RF albuterol sulfate [ProAir HFA] 90 mcg/actuation HFA aerosol inhaler 2 puff inhalation Q4-6H PRN (Reason: shortness of breath or wheezing) Qty: 8.5 0RF simvastatin 20 mg tablet 20 mg PO BEDTIME alprazolam 0.5 mg tablet PO lisinopril 20 mg tablet 20 mg PO DAILY clopidogrel 75 mg tablet 75 mg PO DAILY cholecalciferol (vitamin D3) 25 mcg (1,000 unit) capsule 25 mcg PO DAILY aspirin 81 mg tablet,delayed release (DR/EC) 81 mg PO DAILY fluticasone propion-salmeterol [Wixela Inhub] 250-50 mcg/dose blister with device 1 inh inhalation BID Referrals: Ru Ellison [Outside] (Agency will call to arrange a visit with patient. )
[2022-11-22 09:46] LABS: Lactic Acid 0.9 mmol/L (0.5-2.0)
--- NOTE | 2022-11-22 11:24 | MHC.CM.ED ---
Addendum entered by Sarah Worley 11/22/22 11:38: [facility] is able to accept patient. Family aware and agreeable. Original Note: Received case management consult from Dr Veronica. Patient came to the ER due to fall, unsteady gait and AMS. Patient has underlying memory issues. Work up essentially negative. Family is not interested in STR for patient but is interested in VNA. Met with patient, daughter, Ronel and granddaughter, Katia. Patient lives with , Paige, has a cane/walker at home but doesn't use it, and had no services prior to coming to the ER. PCP verified. No HCP on file at [facility] [place] [place] or [facility]. Patient is not lucid enough to complete a HCP at this time. Ronel and Katia are agreeable to VNA referral being broadcasted. Both aware patient will be discharged home and T/W will call when agency has accepted patient. Both verbalize understanding. Dr Veronica aware. Continue to monitor for d/c needs.
[2022-11-22 11:47] VITALS: O2SAT 94
[2022-11-22 12:44] VITALS: PULSE 63; RESP 18; O2SAT 100
== END 2022-11-22 13:44 | disposition home or self-care (01) ==
PROVIDERS: Emergency Provider Internal Medicine; PCP Nurse Practitioner Family
DX: J44.9 Chronic obstructive pulmonary disease, unspecified (principal); F39 Unspecified mood [affective] disorder; R51.9 Headache, unspecified; R41.82 Altered mental status, unspecified; Z87.891 Personal history of nicotine dependence; Z79.899 Other long term (current) drug therapy
CPT/HCPCS: 36415; 70450; 80053; 83605; 83735; 85025; 85610; 85730; 87040; 94640; 99283

== ENCOUNTER → 2022-11-30 13:14 | Outpatient (BNVA) | payer MEDICARE, SELFPAY | PROVIDERS: PCP Nurse Practitioner Family; Visit Provider Internal Medicine | DX: J44.9 Chronic obstructive pulmonary disease, unspecified (principal); J43.9 Emphysema, unspecified | CPT/HCPCS: 99212 ==

== ENCOUNTER 2023-02-02 12:33 | Outpatient (AMB) | payer MEDICARE, SELFPAY ==
[2023-02-02 13:13] VITALS: BP 130/70; PULSE 68; O2SAT 93; BMI 24.2
--- NOTE | 2023-02-02 13:13 | MHC.OFFVIS ---
Intake Vital Signs 02/02/23 13:13 Height 5 ft 10 in Weight 169 lb BMI 24.2 BP 130/70 Blood Pressure Location Lt brachial Position Sitting Pulse 68 Pulse Source Pulse Oximeter Pulse Oximetry (%) 93 Oxygen Delivery Method Room Air Intake Visit Reasons: Emphysema Intake Note: pt is here for follow up and states he does get short of breath with exertion, the same as before, sitting is fine. 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 Required: No Allergies No Known Allergies Allergy (Mild, Verified 02/02/23 13:32) NONE cats dogs ragweed dust pollen Allergy (Unknown, Uncoded 02/02/23 13:32) Unknown Medication List - Last Reconciled 02/02/23 by Cedric Sarabia MD albuterol sulfate 90 mcg/actuation (ProAir HFA) 2 puffs inhalation Q4-6H PRN alprazolam mg PO aspirin 81 mg PO DAILY cholecalciferol (vitamin D3) 25 mcg PO DAILY clopidogrel 75 mg PO DAILY ipratropium-albuterol 0.5 mg-3 mg(2.5 mg base)/3 mL 3 mL inhalation Q4-6H PRN 30 days lisinopril 20 mg PO DAILY simvastatin 20 mg PO BEDTIME tiotropium bromide 2.5 mcg/actuation (Spiriva Respimat) 2 puffs inhalation QAM 30 days Do you need a note to return to daycare/school/sports/work: No HPI Emphysema HPI Details THIS 82 YEARS OLD VERY PLEASANT GENTLEMAN, WHO AMBULATES WITH WALKER, AND IS MOSTLY AT HOME. COMES AFTER 3 MONTHS FOR FOLLOW-UP. HAS BEEN USING SPIRIVA RESPIMAT 2 PUFFS IN THE MORNING, AND DUONEB UPDRAFTS 2 TO 3 TIMES A DAY. HE IS OKAY LONG HE IS RESTING OF OR WALKING AROUND IN THE HOUSE. BUT IF HE STARTS WALKING OUTDOORS HE GETS SHORT OF BREATH. HE DOES HAVE SOME COUGH IN THE MORNING HOURS. WITHOUT MUCH EXPECTORATION. OVERALL HE IS REMAINING STABLE. [facility] Medical History COPD (chronic obstructive pulmonary disease) Hyperparathyroidism Multinodular thyroid Osteopenia Osteoporosis Pulmonary emphysema Vitamin D deficiency Surgical History Hx of hernia repair Hx of prostatectomy Family History Father No problems noted. Mother No problems noted. Social History Alcohol intake: never Patient Tobacco Use Status: Former Tobacco user Review of Systems Const All systems reviewed & are unremarkable except as noted in HPI and below Reports weakness (MINIMAL RESIDUAL WEAKNESS OF THE LEFT UPPER EXTREMITY) Eyes Reports no additional complaints ENT Reports no additional complaints Card Denies chest pain, Denies irregular heart rhythm, Denies leg edema and Reports dyspnea on exertion (MILD) Resp Reports as per HPI and Reports dyspnea on exertion (MILD) GI Reports no additional complaints Reports no additional complaints Musc Reports abnormal gait (HE USES WALKER,) and Reports back pain Skin/Breast Reports rash (HE HAS HAD NONSPECIFIC ERYTHEMATOUS RASH ON HIS BACK ) Neuro Reports abnormal gait (HE USES WALKER,) and Reports weakness (MINIMAL RESIDUAL WEAKNESS OF THE LEFT UPPER EXTREMITY) Psych Reports anxiety (MILD, HAS TO USE ALPRAZOLAM ONCE IN A WHILE) Endo Reports no additional complaints Isidoro/Lymph Reports no additional complaints Aller/Immun Reports no additional complaints Physical Exam Vital Signs: Last Vital Signs Pulse 68 02/02/23 13:13 BP 130/70 02/02/23 13:13 Pulse Ox 93 02/02/23 13:13 Oxygen Delivery Method Room Air 02/02/23 13:13 BMI result Body Mass Index 24.2 Const General: comfortable, no acute distress, alert and awake Orientation/consciousness: patient oriented x3 HEENT Head: Yes normal to inspection General nose exam: No nasal polyps present and No nasal discharge present Face and sinus: Yes sinuses nontender Mouth: oropharynx normal Throat: Yes posterior oropharynx normal Eyes General: appearance normal, both eyes and all related structures Neck Neck: Yes normal visual inspection, Yes no lymphadenopathy, Yes trachea midline and Yes no JVD Thyroid: Thyroid normal Chest Chest palpation & inspection: normal inspection of the chest, normal palpation of entire chest wall and no tenderness Resp Other: PERCUSSION NOTE IS HYPER-RESONANT, BREATH SOUNDS ARE DISTANT WITH PROLONGED EXPIRATORY PHASE BUT EQUAL ON BOTH SIDES. NO AUDIBLE WHEEZES OR CREPITATIONS. Cardio Palpation: normal PMI Rate: regular rate Rhythm: regular rhythm Heart sounds: no gallops and no murmurs GI Palpation (GI): Soft to palpation, nontender, No hepatosplenomegaly present and no masses Auscultation: normal bowel sounds Back/Spine/Pelvis Thoracic/Lumbar Spine: thoracic and lumbar spine normal to inspection and thoraco-lumbar ROM limited Skin General skin exam: no rashes or lesions noted and other (HE HAS MULTIPLE ERYTHEMATOUS DISC I ADDED AREAS ON THE WHOLE BACK) Neuro General: patient oriented x3, No gait normal (GAIT IMPAIRED DUE TO BACK PAIN, AND HE USES WALKER) and no focal motor deficits Cranial nerves: Yes CN's II-XII intact bilaterally Extrem General: Yes normal to inspection, Yes no clubbing, cyanosis or edema and Yes no calf tenderness Psych Appearance: grossly normal and well kempt Speech and movement: Normal speech and movement present Assessment & Plan Assessment & Plan (1) COPD (chronic obstructive pulmonary disease): Comment: PER PULMONARY FUNCTION TEST HE HAS COPD WHICH IS RATHER SEVERE. NO RESPONSE TO BRONCHODILATOR THERAPY. AGAIN EXPLAINED THIS TO THE PATIENT AND HIS . TX: CONTINUE SPIRIVA RESPIMAT 2INH DAILY IN AM . IPRATROPIUM-ALBUTEROL 1 UNIT IN NEBULIZER B.I.D. REGULARLY AND Q 6 HOURS P.R.N. IN BETWEEN. NEBULIZER UNIT PROVIDED FROM THE OFFICE AND PRESCRIPTION FOR THE SOLUTION IS SENT TO THE PHARMACY. PATIENT AND HIS ARE AGAIN EDUCATED ABOUT COPD, AND EXPECTED PROGNOSIS. Code(s): J44.9 - Chronic obstructive pulmonary disease, unspecified (2) Pulmonary emphysema: Comment: HE HAS PAST HISTORY OF SMOKING. CT SCAN SHOWS CENTRI LOBULAR EMPHYSEMA , THIS IS SECONDARY TO HIS LONG-TIME SMOKING, AND PART OF COPD. ONCE AGAIN EXPLAINED TO THE PATIENT. WHICH IS THE CAUSE OF HIS COPD Code(s): J43.9 - Emphysema, unspecified Coding Level of Care Code Est Pt Level 3 (56846) Diagnoses COPD (chronic obstructive pulmonary disease) J44.9 Pulmonary emphysema J43.9
== END 2023-02-02 13:33 | disposition home or self-care (01) ==
PROVIDERS: PCP Nurse Practitioner Family; Visit Provider Internal Medicine
DX: J44.9 Chronic obstructive pulmonary disease, unspecified (principal)
CPT/HCPCS: 99213

== ENCOUNTER → 2023-02-02 12:33 | Outpatient (BNVA) | payer MEDICARE, SELFPAY | PROVIDERS: PCP Nurse Practitioner Family; Visit Provider Internal Medicine | DX: J43.9 Emphysema, unspecified (principal); J44.9 Chronic obstructive pulmonary disease, unspecified | CPT/HCPCS: 99212 ==

== ENCOUNTER 2023-02-28 07:36 | Inpatient (IN) | payer MEDICARE, SELFPAY ==
[2023-02-28] VITALS (8 sets, daily range): BP systolic 144–175; BP diastolic 60–85; PULSE 66–83; RESP 12–24; TEMP 36.4–36.9; O2SAT 94–97; BMI 23.2; BMI 24.1
--- NOTE | ~2023-02-28 | XR_ITS ---
EXAMINATION: XR CHEST CLINICAL INFORMATION: Shortness of breath COMPARISON: Chest radiograph from 06/11/2022 TECHNIQUE: Frontal view of the chest was obtained. FINDINGS: Hyperinflated lung martinez. Emphysematous changes. No pneumothorax. Trachea is midline. Cardiac mediastinal silhouette is stable. Aorta demonstrates tortuosity. No large pleural effusion. Degenerative changes of the thoracolumbar spine. Soft tissues are unremarkable. XR/XR chest 1V IMPRESSION: 1. Hyperinflated lung martinez. 2. Emphysematous changes.
--- NOTE | 2023-02-28 07:40 | ED_ITS ---
HPI - SOB/Dyspnea General Chief Complaint: Dyspnea Stated Complaint: diff breathing, with h/o COPD, per emsa Time Seen by Provider: 02/28/23 07:39 Source: patient and EMS Mode of arrival: EMS Limitations: no limitations History of Present Illness HPI Narrative: According to EMS known COPD patient with prior calls, received Albuterol, Albuterol and Atrovent, and IV solumedrol. Patient woke up 1.5 hours ago just s hort of breath MD elicited complaint: shortness of breath Pertinent past history: COPD Related Data Home Medications Medication Instructions Recorded Confirmed alprazolam 0.5 mg tablet mg PO 05/13/20 02/02/23 clopidogrel 75 mg tablet 75 mg PO DAILY 05/13/20 02/02/23 lisinopril 20 mg tablet 20 mg PO DAILY 05/13/20 02/02/23 simvastatin 20 mg tablet 20 mg PO BEDTIME 05/13/20 02/02/23 aspirin 81 mg tablet,delayed 81 mg PO DAILY 08/25/22 02/02/23 release cholecalciferol (vitamin D3) 25 25 mcg PO DAILY 08/25/22 02/02/23 mcg (1,000 unit) capsule Previous Rx's Medication Instructions Recorded albuterol sulfate 90 mcg/actuation 2 puff inhalation Q4-6H PRN 06/11/22 aerosol inhaler (ProAir HFA) shortness of breath or wheezing #8.5 grams ipratropium 0.5 mg-albuterol 3 mg 3 ml inhalation Q4-6H PRN wheezing 01/08/23 (2.5 mg base)/3 mL nebulization 30 days #270 mL soln tiotropium bromide 2.5 2 puff inhalation QAM COPD 30 02/03/23 mcg/actuation mist for inhalation days #4 grams (Spiriva Respimat) Allergies Allergy/AdvReac Type Severity Reaction Status Date / Time No Known Allergies Allergy Mild NONE Verified 02/02/23 13:32 cats dogs ragweed dust pollen Allergy Unknown Unknown Uncoded 02/02/23 13:32 Review of Systems Review of Systems: Yes all other systems are reviewed and are negative Neurologic: Denies Sensory deficit (Neuro) PMFSH Past Medical History Medical History COPD (chronic obstructive pulmonary disease) Hyperparathyroidism Multinodular thyroid Osteopenia Osteoporosis Pulmonary emphysema Vitamin D deficiency Surgical History Hx of hernia repair Hx of prostatectomy Family History Family History Father No problems noted. Mother No problems noted. Social History Social History Alcohol intake: never Patient Tobacco Use Status: Former Tobacco user Advance Directives: Yes Advance Directives Information Provided: No Advance Directives on File: No Physical Exam Vital Signs: Vital Signs: Last Vital Signs Temp 98.3 F 02/28/23 09:04 Pulse 78 02/28/23 10:03 Resp 18 02/28/23 10:03 BP 145/70 H 02/28/23 09:04 Pulse Ox 97 02/28/23 09:04 O2 Del Method Nasal Cannula 02/28/23 09:04 O2 Flow Rate 2 02/28/23 09:04 BMI result Body Mass Index 23.2 Const: Other: frail elderly, short of breath Nutritional Appearance: average body habitus Orientation/consciousness: oriented to person and patient oriented x3 Limitations: no limitations HEENT: Head: Yes normal to inspection Ears: external ears normal General nose exam: Normal external nose present Mouth: Normal oral and palatal mucosa present and oropharynx normal Throat: Yes posterior oropharynx normal Eyes: General: appearance normal, both eyes and all related structures Neck: Other: supple Neck: Yes normal visual inspection Chest: Chest palpation & inspection: normal inspection of the chest Resp: Other: distant breath sounds, short of breath Cardio: Jugular venous distension: no JVD Rate: regular rate Rhythm: regular rhythm Heart sounds: S1 normal heart sound present and S2 normal heart sound present GI: Inspection: Yes normal to inspection Palpation (GI): Soft to palpation, nontender and No hepatosplenomegaly present Auscultation: normal bowel sounds : General: Yes no CVA tenderness Back/Spine/Pelvis: Back: no CVA tenderness Skin: General skin exam: no rashes or lesions noted Neuro: General: oriented to person and patient oriented x3 Cranial nerves: Yes CN's II-XII intact bilaterally Motor exam (neuro): 5/5 motor strength present throughout Sensory Exam: No Sensory deficit (Neuro) Extrem: General: Yes normal to inspection Psych: Appearance: grossly normal Course Reevaluation(s) Reevaluation #1: despite some slight improvement patient cant move even in the bed without significant shortness of breath. When he ambulated with assistance to the bathroom his oxygen dropped to 86% and his work of breathing went way up. There are no signs of infection, no fever no WBC elevation will not give abx at this time. Time: 11:40 Reevaluation #2: I spent 40 minutes of critical care, with interventions, assessments, speaking to patient, consultants, and family. Time: 11:47 Medications Administered Discontinued Medications Generic Name Dose Route Start Last Admin Trade Name Freq PRN Reason Stop Dose Admin Albuterol Sulfate 5 mg 02/28/23 09:53 02/28/23 10:03 Albuterol Sulfate (0.083%) 2.5 Mg/3 Ml Vial.Neb INHALE 02/28/23 09:54 5 mg ONCE ONE Administration Medical Decision Making Differential Diagnosis Differential Diagnoses: The differential diagnosis associated with the presentation includes (COPD exacerbation, pneumonia, pneumothorax, Covid were all considered) Admission/Observation Consideration of admission/observation: Escalation of care including admission/observation considered (upon arrival patient was considered for admission) Consult Healthcare Provider Management of the patient was discussed with: Hospitalist Lab Data MDM Lab Attestation statement: I reviewed the patient's lab results. (no elevation of WBC, no troponin elevation) 02/28/23 07:57 02/28/23 07:57 Labs: Lab Results 02/28/23 02/28/23 02/28/23 Range/Units 07:57 07:57 07:57 WBC 7.0 (4.8-10.8) X10*3/uL RBC 3.95 L (4.60-5.80) X10*6/uL Hgb 12.8 L (14.0-18.0) g/dl Hct 39.3 L (42.0-52.0) % MCV 99.5 H (80.0-98.0) fL MCH 32.4 (27.0-33.0) pg MCHC 32.6 (31.0-36.0) g/dl RDW 12.0 (11.0-16.0) % Plt Count 148 L (160-400) X10*3/uL MPV 11.1 (9.4-12.4) fL Immature Gran % (Auto) 0.6 H (0.0-0.4) % Neut % (Auto) 70.9 (45-73) % Lymph % (Auto) 14.7 L (20-40) % [place] % (Auto) 9.8 (2-11) % Eos % (Auto) 3.0 (0-4) % Baso % (Auto) 1.0 (0-2) % Lymph # (Auto) 1.0 L (1.2-4.9) X10*3/uL [place] # (Auto) 0.7 (0.1-1.2) X10*3/uL Eos # (Auto) 0.2 (0.0-0.4) X10*3/uL Baso # (Auto) 0.1 (0.0-0.2) X10*3/uL Abs Immat Gran (auto) 0.04 H (0.00-0.03) X10*3/uL Absolute Neuts (auto) 5.0 (2.0-8.3) x10*3/uL Absolute Nucleated RBC 0.000 (0.0-0.012) X10*3/uL Nucleated RBC % (auto) 0.0 (0.0-0.2) /100WBC Sodium 142 (135-145) mmol/L Potassium 4.4 (3.3-5.1) mmol/L Chloride 110 H (96-108) mmol/L Carbon Dioxide 23 (22-29) mmol/L Anion Gap 13 (12-20) BUN 17 H (9-16) mg/dL Creatinine 1.17 (0.5-1.4) mg/dL Estim Creat Clear Calc 50.2 Estimated GFR 60 Random Glucose 94 (60-115) mg/dL Calcium 8.7 D (8.4-10.2) mg/dL Troponin I High Sens 16.1 (<3.5-35.0) ng/L Independent Interpretation I performed an independent interpretation of an: EKG (sinus 65, RBBB no st or twave changes) and Plain X-Ray (severe chronic lung changes no infiltrate) Independent Historian Clinical information obtained from an independent historian. History obtained from or confirmed by: Spouse () and Other (granddaughter) Chronic Conditions Patient?s care impacted by: Other (COPD) Discharge Plan Discharge Clinical Impression: COPD (chronic obstructive pulmonary disease) Patient Disposition: Admitted As Inpatient Prescriptions: No Action ipratropium-albuterol 0.5 mg-3 mg(2.5 mg base)/3 mL solution for nebulization 3 ml inhalation Q4-6H PRN (Reason: wheezing) 30 Days Qty: 270 3RF Rx Instructions: Use TID albuterol sulfate [ProAir HFA] 90 mcg/actuation HFA aerosol inhaler 2 puff inhalation Q4-6H PRN (Reason: shortness of breath or wheezing) Qty: 8.5 0RF simvastatin 20 mg tablet 20 mg PO BEDTIME alprazolam 0.5 mg tablet PO lisinopril 20 mg tablet 20 mg PO DAILY clopidogrel 75 mg tablet 75 mg PO DAILY cholecalciferol (vitamin D3) 25 mcg (1,000 unit) capsule 25 mcg PO DAILY aspirin 81 mg tablet,delayed release (DR/EC) 81 mg PO DAILY Spiriva Respimat 2.5 mcg/actuation mist 2 puff inhalation QAM 30 Days Qty: 4 3RF
--- NOTE | 2023-02-28 07:44 | ECG_ITS ---
Test Reason : diff. breathing Blood Pressure : / mmHG Vent. Rate : 066 BPM Atrial Rate : 066 BPM P-R Int : 162 ms QRS Dur : 120 ms QT Int : 418 ms P-R-T Axes : 101 -82 054 degrees QTc Int : 438 ms Normal sinus rhythm Left axis deviation Low voltage QRS Right bundle branch block Inferior infarct , age undetermined Abnormal ECG When compared with ECG of 11-JUN-2022 19:27, Premature atrial complexes are no longer Present QRS duration has decreased Referred By: Kirill De Jesus Electronically Signed By:LIZ SOTELO
--- NOTE | 2023-02-28 08:05 | PC.NURSE ---
alert and oriented, resting comfortably on stretcher. relief from shortness of breath prior to arrival from ems medications. at bedside. labs drawn, ekg obtained. call greer within reach.
[2023-02-28 08:06] LABS: MANUAL DIFF FLAG NO
[2023-02-28 08:12] LABS: Basophils Absolute Auto 0.1 X10*3/uL (0.0-0.2); Eosinophils Absolute Auto 0.2 X10*3/uL (0.0-0.4); Hematocrit 39.3 % (42.0-52.0); Hemoglobin 12.8 g/dl (14.0-18.0); Imm Gran Abs Auto 0.04 X10*3/uL (0.00-0.03); Imm Gran Pct Auto 0.6 % (0.0-0.4); Lymphocytes Percent Auto 14.7 % (20-40); Mean Corpuscular HGB Conc 32.6 g/dl (31.0-36.0); Mean Corpuscular Hemoglobin 32.4 pg (27.0-33.0); Mean Corpuscular Volume 99.5 fL (80.0-98.0); Mean Platelet Volume 11.1 fL (9.4-12.4); Monocytes Absolute Auto 0.7 X10*3/uL (0.1-1.2); Monocytes Percent Auto 9.8 % (2-11); Neutrophils Percent Auto 70.9 % (45-73); Platelet Count 148 X10*3/uL (160-400); Red Blood Count 3.95 X10*6/uL (4.60-5.80)
[2023-02-28 08:27] LABS: Troponin-I High Sensitivity 16.1 ng/L (<3.5-35.0)
[2023-02-28 08:46] LABS: Anion Gap 13 (12-20)
[2023-02-28 08:52] LABS: Blood Urea Nitrogen 17 mg/dL (9-16); Calcium 8.7 mg/dL (8.4-10.2); Carbon Dioxide 23 mmol/L (22-29); Chloride 110 mmol/L (96-108); Creatinine Clr Calc Pharmacy 50.2; Estimated Glomerular Filt Rate 60; Glucose Random 94 mg/dL (60-115); Potassium 4.4 mmol/L (3.3-5.1); Sodium 142 mmol/L (135-145)
--- NOTE | 2023-02-28 09:07 | PC.NURSE ---
ambulated to bathroom with pct, upon return to room pt began complaining of shortness of breath similar to what brought him in this morning. placed on 2L nasal cannula for comfort. at this time pt states the episode has almost resolved and he is feeling much more comfortable with even and unlabored respirations at this time.
[2023-02-28] MEDS: Albuterol Sulfate (0.083%) 2.5 MG/3 ML VIAL.NEB 5 MG INHALE (10:03)
--- NOTE | 2023-02-28 10:04 | PC.NURSE ---
respiratory at bedside for breathing treatment
--- NOTE | 2023-02-28 11:06 | PC.NURSE ---
ambulated to the bathroom, upon returning to room patient reports feeling short of breath again but better than the previous time. 87% on room air after walking to bathroom
--- NOTE | 2023-02-28 12:35 | PHA.MEDREC ---
Pharmacy Consult ? Medication Reconciliation Pharmacy has completed the medication reconciliation. Spoke to patient. States he is no longer on Advair. States he takes his duonebs 2-3 times a day, mostly 2x a day. He also states that he was supposed to start lexapro, but read the side effects and never picked it up lucy
[2023-02-28 12:38] LABS: Influenza A PCR NEGATIVE (Negative); Influenza B PCR NEGATIVE (Negative); Resp Syncy Virus RNA Qual PCR NEGATIVE (Negative); SARS COV2 PCR INHOUSE NEGATIVE (Negative)
--- NOTE | 2023-02-28 12:55 | PM.IMHP ---
History of Present Illness Date of Service: 02/28/23 Chief Complaint: SOB 82 year old man presenting with increased sob over the last 24 hours. He woke up with sob. He does have a hx o COPD and emphysema from past smoking many years ago. he denied chest pain, nausea, vomiting, diarrhea, fever. He just reported shortness of breath especially with ambulation activity. He had been using his inhalers at home as prescribed but seem to be getting more short of breath. Chest x-ray showed emphysema, no consolidation. Patient's vital signs were stable no hypoxia was noted, lab within acceptable limits. He was given albuterol and azithromycin in the ER. Placed on observation for COPD exacerbation. Review of Systems Review of Systems: Denies any recent fever chills or decrease in appetite respiratory See HPI cardiovascular denies cardiac disease gastrointestinal denies any dysphagia abdominal pain nausea vomiting or diarrhea genitourinary denies any dysuria frequency or hematuria musculoskeletal denies any joint pain or swelling neuropsych denies any weakness or seizures all other systems reviewed are negative [facility] Medical History (Updated 02/28/23 @ 13:10 by Estrella Moscoso NP) COPD (chronic obstructive pulmonary disease) Hyperparathyroidism Multinodular thyroid Osteopenia Osteoporosis Pulmonary emphysema Vitamin D deficiency Family History Father No problems noted. Mother No problems noted. Surgical History Hx of hernia repair Hx of prostatectomy Social History Alcohol intake: never Patient Tobacco Use Status: Former Tobacco user Advance Directives: Yes Advance Directives Information Provided: No Advance Directives on File: No Meds Allergies Allergy/AdvReac Type Severity Reaction Status Date / Time No Known Allergies Allergy Mild NONE Verified 02/02/23 13:32 cats dogs ragweed dust pollen Allergy Unknown Unknown Uncoded 02/02/23 13:32 Active Medications: Current Medications Acetaminophen (Acetaminophen 325 Mg Tablet) 650 mg PO Q6H PRN PRN Reason: Pain, Mild (Pain Scale 1-3) Acetaminophen (Acetaminophen Supp 650 Mg Supp.Rect) 650 mg ND Q6H PRN PRN Reason: Pain, Mild (Pain Scale 1-3) Albuterol Sulfate (Albuterol Sulfate (0.083%) 2.5 Mg/3 Ml Vial.Neb) 2.5 mg INHALE RQ4H WHILE AWAKE [facility] Alprazolam (Alprazolam 0.5 Mg Tablet) 0.5 mg PO QID PRN PRN Reason: Anxiety Aspirin (Aspirin Enteric Coated 81 Mg Tablet.Dr) 81 mg PO DAILY [facility] Clopidogrel Bisulfate (Clopidogrel Bisulfate 75 Mg Tablet) 75 mg PO DAILY [facility] Heparin Sodium (Porcine) (Heparin Sodium,Porcine 5,000 Unit/Ml Vial) 5,000 unit SUBCUT Q12H [facility] Azithromycin 500 mg/ Sodium (Chloride) 250 mls @ 125 mls/hr IV Q24H [facility] Lisinopril (Lisinopril 20 Mg Tablet) 20 mg PO DAILY [facility]; Protocol Methylprednisolone Sodium Succinate (Methylprednisolone Sod Succ 40 Mg/Ml Vial) 40 mg IVPUSH Q8H [facility] Non-Formulary Medication (Simvastatin) 20 mg PO BEDTIME [facility] Ondansetron HCl (Ondansetron Hcl 4 Mg/2 Ml Vial) 4 mg IVPUSH Q8H PRN PRN Reason: Nausea and Vomiting Sodium Chloride (0.9 % Sodium Chloride Flush 3 Ml Syringe) 3 ml IVFLUSH QSHIFT [facility] Tiotropium [place] (Tiotropium [place] 2.5 Mcg Inhaler) 2 puff INHALE DAILY [facility] Home Medications Medication Instructions Recorded Confirmed Last Taken Type clopidogrel 75 mg tablet 75 mg PO DAILY 05/13/20 02/28/23 Unknown History lisinopril 20 mg tablet 20 mg PO DAILY 05/13/20 02/28/23 Unknown History simvastatin 20 mg tablet 20 mg PO BEDTIME 05/13/20 02/28/23 Unknown History aspirin 81 mg tablet,delayed 81 mg PO DAILY 08/25/22 02/28/23 Unknown History release albuterol sulfate 90 mcg/actuation 2 puff inhalation Q6H PRN 02/28/23 02/28/23 Unknown History aerosol inhaler (ProAir HFA) shortness of breath or wheezing alprazolam 0.5 mg tablet 0.5 mg PO QID PRN Anxiety 02/28/23 02/28/23 Unknown History ipratropium 0.5 mg-albuterol 3 mg 3 ml inhalation BID-TID PRN 02/28/23 02/28/23 Unknown History (2.5 mg base)/3 mL nebulization wheezing soln tiotropium bromide 2.5 2 puff inhalation DAILY COPD 02/28/23 02/28/23 Unknown History mcg/actuation mist for inhalation (Spiriva Respimat) Physical Exam Vital Signs and Narrative: Vital Signs: Last Vital Signs Temp 98.3 F 02/28/23 09:04 Pulse 83 02/28/23 11:50 Resp 12 02/28/23 11:50 BP 144/68 H 02/28/23 11:50 Pulse Ox 95 02/28/23 11:50 O2 Del Method Nasal Cannula 02/28/23 11:50 O2 Flow Rate 2 02/28/23 11:50 BMI result Body Mass Index 23.2 Appearing in no acute distress head is normocephalic atraumatic eyes pupils are PERRLA sclera is anicteric mouth throat mucous membranes are intact and moist neck is supple no lymphadenopathy, no JVD noted lung sounds exp wheezing, dim heart regular rate rhythm, clear S1, S2 positive bowel sounds, abdomen is soft, nontender neuro patient is alert x3, no focal deficits Results Labs 02/28/23 07:57 02/28/23 07:57 Labs: Laboratory Results - last 24 hr 02/28/23 02/28/23 02/28/23 07:57 07:57 11:52 MCV 99.5 H MCH 32.4 MCHC 32.6 RDW 12.0 Plt Count 148 L MPV 11.1 Immature Gran % (Auto) 0.6 H Neut % (Auto) 70.9 Lymph % (Auto) 14.7 L Faulkner % (Auto) 9.8 Eos % (Auto) 3.0 Baso % (Auto) 1.0 Lymph # (Auto) 1.0 L [place] # (Auto) 0.7 Eos # (Auto) 0.2 Baso # (Auto) 0.1 Abs Immat Gran (auto) 0.04 H Absolute Neuts (auto) 5.0 Absolute Nucleated RBC 0.000 Nucleated RBC % (auto) 0.0 Anion Gap 13 Estim Creat Clear Calc 50.2 Estimated GFR 60 Random Glucose 94 Calcium 8.7 D Influenza Type A (PCR) NEGATIVE Influenza Type B (PCR) NEGATIVE RSV RNA Qual (PCR) NEGATIVE SARS-CoV-2 RNA (RT-PCR) NEGATIVE Imaging Radiologist's Impressions: Impressions Chest X-Ray 02/28/23 08:20 IMPRESSION: 1. Hyperinflated lung martinez. 2. Emphysematous changes. Assessment and Plan (1) COPD (chronic obstructive pulmonary disease): Status: Acute Plan 82 year old man admitted with acute COPD exacerbation Acute COPD exacerbation no hypoxia start Solumedrol 40mg TID, scheduled duonebs Q4h while awake Azithromycin for bronchitis coverage supplemental oxygen as needed Mental health continue home medications HLD continue asa and plavix statin HTN stable BP continue Lisinopril DVT prophylaxias with heparin Full code Time Spent With Patient Time: Total time managing care of this patient today ____ minutes. Quality Stroke Does the patient have a stroke diagnosis?: No VTE Prior VTE?: No VTE Risk Level:: Medical - moderate - high VTE Device Contraindication: Treatment Not Indicated VTE Drug Contraindication: N/A - Med Ordered
[2023-02-28] MEDS: methylPREDNISolone Sod Succ 40 MG/ML VIAL IVPUSH ×2 (13:36→21:05)
[2023-02-28] MEDS: Azithromycin 500 MG in 0.9 % Sodium Chloride 250 ML 125 MG IV (13:36)
[2023-02-28] MEDS: Heparin Sodium,Porcine 5,000 UNIT/ML VIAL 5000 UNIT SUBCUT (13:36)
[2023-02-28] MEDS: Albuterol Sulfate (0.083%) 2.5 MG/3 ML VIAL.NEB INHALE ×2 (15:10→19:54)
[2023-02-28] MEDS: 0.9 % Sodium Chloride Flush 3 ML SYRINGE IVFLUSH ×2 (16:24→20:38)
[2023-02-28] MEDS: Atorvastatin Calcium 10 MG TABLET PO (21:05)
[2023-03-01] MEDS: Heparin Sodium,Porcine 5,000 UNIT/ML VIAL 5000 UNIT SUBCUT ×2 (01:29→12:08)
[2023-03-01 02:43] VITALS: BP 156/88; PULSE 78; RESP 18; TEMP 36.6; O2SAT 97
[2023-03-01] MEDS: methylPREDNISolone Sod Succ 40 MG/ML VIAL IVPUSH ×2 (04:53→12:08)
[2023-03-01 06:38] LABS: Hematocrit 47.4 % (42.0-52.0); Hemoglobin 15.5 g/dl (14.0-18.0); Mean Corpuscular HGB Conc 32.7 g/dl (31.0-36.0); Mean Corpuscular Volume 97.9 fL (80.0-98.0); Mean Platelet Volume 10.9 fL (9.4-12.4); Platelet Count 181 X10*3/uL (160-400); Red Blood Count 4.84 X10*6/uL (4.60-5.80); Red Cell Distribution Width 12.1 % (11.0-16.0)
[2023-03-01 06:53] LABS: Anion Gap 13 (12-20); Blood Urea Nitrogen 27 mg/dL (9-16); Calcium 9.6 mg/dL (8.4-10.2); Carbon Dioxide 27 mmol/L (22-29); Chloride 107 mmol/L (96-108); Creatinine Clr Calc Pharmacy 44.5; Estimated Glomerular Filt Rate 52; Glucose Random 124 mg/dL (60-115); Potassium 5.2 mmol/L (3.3-5.1); Sodium 142 mmol/L (135-145)
[2023-03-01 07:01] VITALS: BP 152/80; PULSE 64; RESP 18; TEMP 36.4; O2SAT 96
[2023-03-01] MEDS: Albuterol Sulfate (0.083%) 2.5 MG/3 ML VIAL.NEB INHALE ×3 (07:51→15:24)
[2023-03-01] MEDS: lisinopriL 20 MG TABLET PO (09:30)
[2023-03-01] MEDS: 0.9 % Sodium Chloride Flush 3 ML SYRINGE IVFLUSH ×2 (09:30→16:30)
[2023-03-01] MEDS: Clopidogrel Bisulfate 75 MG TABLET PO (09:30)
[2023-03-01] MEDS: Aspirin Enteric Coated 81 MG TABLET.DR PO (09:30)
[2023-03-01 11:22] VITALS: PULSE 79; RESP 20; O2SAT 95
--- NOTE | 2023-03-01 11:26 | P.PNIM_ITS ---
Subjective Subjective Date of Service: 03/01/23 Review of Systems Follow up COPD exacerbation some mild sob with ambulation Physical Exam Vital Signs: Vital Signs: Last Vital Signs Temp 97.6 F 03/01/23 07:01 Pulse 79 03/01/23 11:22 Resp 20 03/01/23 11:22 BP 152/80 H 03/01/23 07:01 Pulse Ox 96 03/01/23 07:01 O2 Del Method Nasal Cannula 03/01/23 07:01 O2 Flow Rate 2 03/01/23 07:01 BMI result Body Mass Index 24.1 Appearing in no acute distress lung sounds diminished heart regular rate rhythm, clear S1, S2 positive bowel sounds, abdomen is soft, nontender neuro patient is alert x3, no focal deficits Objective Data Active Medications Acetaminophen (Acetaminophen 325 Mg Tablet) 650 mg PO Q6H PRN PRN Reason: Pain, Mild (Pain Scale 1-3) Acetaminophen (Acetaminophen Supp 650 Mg Supp.Rect) 650 mg [place] Q6H PRN PRN Reason: Pain, Mild (Pain Scale 1-3) Albuterol Sulfate (Albuterol Sulfate (0.083%) 2.5 Mg/3 Ml Vial.Sofie) 2.5 mg INHALE RQ4H WHILE AWAKE [facility] Last Admin: 03/01/23 11:21 Dose: 2.5 mg Documented By: BENITA Alprazolam (Alprazolam 0.5 Mg Tablet) 0.5 mg PO QID PRN PRN Reason: Anxiety Aspirin (Aspirin Enteric Coated 81 Mg Tablet.) 81 mg PO DAILY [facility] Last Admin: 03/01/23 09:30 Dose: 81 mg Documented By: ADELE Atorvastatin Calcium (Atorvastatin Calcium 10 Mg Tablet) 10 mg PO BEDTIME [facility] Last Admin: 02/28/23 21:05 Dose: 10 mg Documented By: SHAJI Clopidogrel Bisulfate (Clopidogrel Bisulfate 75 Mg Tablet) 75 mg PO DAILY [facility] Last Admin: 03/01/23 09:30 Dose: 75 mg Documented By: ADELE Heparin Sodium (Porcine) (Heparin Sodium,Porcine 5,000 Unit/Ml Vial) 5,000 unit SUBCUT Q12H [facility] Last Admin: 03/01/23 01:29 Dose: 5,000 unit Documented By: SHAJI Azithromycin 500 mg/ Sodium (Chloride) 250 mls @ 125 mls/hr IV Q24H [facility] Last Infusion: 02/28/23 15:41 Dose: 0 mls/hr Documented By: KYLAH Lisinopril (Lisinopril 20 Mg Tablet) 20 mg PO DAILY [facility]; Protocol Last Admin: 03/01/23 09:30 Dose: 20 mg Documented By: ADELE Methylprednisolone Sodium Succinate (Methylprednisolone Sod Succ 40 Mg/Ml Vial) 40 mg IVPUSH Q8H [facility] Last Admin: 03/01/23 04:53 Dose: 40 mg Documented By: SHAJI Ondansetron HCl (Ondansetron Hcl 4 Mg/2 Ml Vial) 4 mg IVPUSH Q8H PRN PRN Reason: Nausea and Vomiting Sodium Chloride (0.9 % Sodium Chloride Flush 3 Ml Syringe) 3 ml IVFLUSH QSHIFT [facility] Last Admin: 03/01/23 09:30 Dose: 3 ml Documented By: ADELE Tiotropium [place] (Tiotropium Newman 2.5 Mcg Inhaler) 2 puff INHALE RDAILY [facility] Last Admin: 03/01/23 07:51 Dose: Not Given Documented By: BENITA Non-Admin Reason: Med Not Available Labs 03/01/23 06:27 03/01/23 06:27 Labs: Laboratory Results - last 24 hr 02/28/23 03/01/23 03/01/23 11:52 06:27 06:27 MCV 97.9 MCH 32.0 MCHC 32.7 RDW 12.1 Plt Count 181 MPV 10.9 Absolute Nucleated RBC 0.000 Nucleated RBC % (auto) 0.0 Anion Gap 13 Estim Creat Clear Calc 44.5 Estimated GFR 52 Random Glucose 124 H Calcium 9.6 D Influenza Type A (PCR) NEGATIVE Influenza Type B (PCR) NEGATIVE RSV RNA Qual (PCR) NEGATIVE SARS-CoV-2 RNA (RT-PCR) NEGATIVE Assessment and Plan (1) COPD (chronic obstructive pulmonary disease): Status: Acute Plan 82 year old man admitted with acute COPD exacerbation Acute COPD exacerbation no hypoxia continue Solumedrol 40mg TID, scheduled duonebs Q4h while awake Azithromycin for bronchitis coverage supplemental oxygen as needed Hyperkalemia mild 5.2 monitor Mental health continue home medications HLD continue asa and plavix statin HTN stable BP continue Lisinopril DVT prophylaxias with heparin Attending Dr. Oleary Full code Time Spent With Patient Time: Total time managing care of this patient today ____ minutes. Quality Stroke Does the patient have a stroke diagnosis?: No VTE Prior VTE?: No VTE Risk Level:: Medical - moderate - high VTE Device Contraindication: Treatment Not Indicated VTE Drug Contraindication: N/A - Med Ordered
--- NOTE | 2023-03-01 11:28 | MHC.CM.PN ---
IMM DELIVERED PT REQUESTS (AT BEDSIDE) SIGN. PT LIVES WITH SPOUSE AND HAS NO SERVICES. USES WALKER FOR MOBILITY, HAS A NEBULIZER/INHALERS. + COVID VAXX NO HCP ON FILE, DECLINES TO DO ONE , BELIEVES THERE IS ONE AT MD OFFICE. PCP ROSALBA SYLVESTER. DP: HOME WITH ? [facility] SERVICES? FAMILY WILL TRANSPORT. CM WILL CONTINUE TO FOLLOW FOR ANY CHANGE IN DC NEEDS/PLAN
[2023-03-01] MEDS: Azithromycin 500 MG in 0.9 % Sodium Chloride 250 ML 125 MG IV (12:09)
[2023-03-01 15:25] VITALS: PULSE 87; RESP 18; O2SAT 94
[2023-03-01 15:44] VITALS: BP 130/70; PULSE 72; RESP 22; TEMP 36.1; O2SAT 96
[2023-03-01] MEDS: ALPRAZolam 0.5 MG TABLET PO (16:38)
[2023-03-01 19:19] VITALS: BP 141/67; PULSE 71; RESP 18; TEMP 36.6; O2SAT 95
[2023-03-02 03:11] VITALS: BP 132/62; PULSE 62; RESP 14; TEMP 36.1; O2SAT 97
[2023-03-02] MEDS: methylPREDNISolone Sod Succ 40 MG/ML VIAL IVPUSH (05:30)
[2023-03-02] MEDS: 0.9 % Sodium Chloride Flush 3 ML SYRINGE IVFLUSH ×2 (05:30→07:34)
[2023-03-02 06:11] LABS: Anion Gap 12 (12-20); Blood Urea Nitrogen 38 mg/dL (9-16); Calcium 9.1 mg/dL (8.4-10.2); Carbon Dioxide 26 mmol/L (22-29); Chloride 106 mmol/L (96-108); Creatinine Clr Calc Pharmacy 48.2; Estimated Glomerular Filt Rate 57; Glucose Random 100 mg/dL (60-115); Potassium 4.3 mmol/L (3.3-5.1); Sodium 140 mmol/L (135-145)
[2023-03-02 06:47] VITALS: BP 152/84; PULSE 69; RESP 17; TEMP 36.6; O2SAT 96
[2023-03-02] MEDS: lisinopriL 20 MG TABLET PO (07:34)
[2023-03-02] MEDS: Aspirin Enteric Coated 81 MG TABLET.DR PO (07:34)
[2023-03-02] MEDS: Clopidogrel Bisulfate 75 MG TABLET PO (07:34)
[2023-03-02] MEDS: Albuterol Sulfate (0.083%) 2.5 MG/3 ML VIAL.NEB INHALE (08:16)
[2023-03-02 08:19] VITALS: PULSE 72; RESP 16; O2SAT 97
--- NOTE | 2023-03-02 09:10 | P.DS_ITS ---
DS: Providers Provider Date of Service: 03/02/23 Date of admission: 02/28/23 12:42 Primary care physician: Yamila Rivera NP DS: Diagnosis Discharge Diagnosis (1) COPD (chronic obstructive pulmonary disease): Status: Acute DS: Summary Hospital Course Hospital Course: 82 year old man presenting with increased sob over the last 24 hours. He woke up with sob. He does have a hx o COPD and emphysema from past smoking many years ago. he denied? chest pain, nausea, vomiting, diarrhea, fever.? He just reported shortness of breath especially with ambulation activity.? He had been using his inhalers at home as prescribed but seem to be getting more short of breath.? Chest x-ray showed emphysema, no consolidation.? Patient's vital signs were stable no hypoxia was noted, lab within acceptable limits.? He was given albuterol and azithromycin in the ER.? Placed on observation for COPD exacerbation. 82-year-old man admitted with acute COPD exacerbation. No consolidation on x- ray. Treated with IV steroids, scheduled DuoNebs and received 2 doses of azithromycin. Patient doing much better at this point. He qualified for home oxygen and requires 2 L nasal cannula consistently and may increase to 3-4 L with ambulation. Hyperkalemia. Mild. Resolved with no treatment Mental health. Continue medications Hyperlipidemia. Continue aspirin, Plavix and statin Hypertension. Stable blood pressure. Continue lisinopril Time Spent with Patient Time attestation: Total time managing care of this patient today ____ minutes. Discharge coordination time: Greater than 30 minutes Quality: Safe Use of Opioids Does Pt have an Active Cancer Diagnosis on the Problem List?: No Quality: Stroke Does the patient have a stroke diagnosis?: No Physical Exam Vital Signs: Vital Signs: Last Vital Signs Temp 97.8 F 03/02/23 06:47 Pulse 72 03/02/23 08:19 Resp 16 03/02/23 08:19 BP 152/84 H 03/02/23 06:47 Pulse Ox 96 03/02/23 06:47 O2 Del Method Nasal Cannula 03/02/23 06:47 O2 Flow Rate 2 03/02/23 06:47 BMI result Body Mass Index 24.1 Appearing in no acute distress head is normocephalic atraumatic eyes pupils are PERRLA sclera is anicteric mouth throat mucous membranes are intact and moist neck is supple no lymphadenopathy, no JVD noted lung sounds diminished throughout heart regular rate rhythm, clear S1, S2 positive bowel sounds, abdomen is soft, nontender neuro patient is alert x3, no focal deficits DS: Data Data Completed and Pending Labs on day of discharge: Laboratory Results - last 24 hr 03/02/23 05:18 Sodium 140 Potassium 4.3 Chloride 106 Carbon Dioxide 26 Anion Gap 12 BUN 38 H Creatinine 1.22 Estim Creat Clear Calc 48.2 Estimated GFR 57 Random Glucose 100 Calcium 9.1 Discharge Plan Discharge Anticipated Discharge Date/Time: 03/02/23 09:07 Patient Disposition: Home Health Service Discharge Diagnosis: COPD exacerbation Hyperkalemia Referrals: Yamila Rivera NP [Primary Care Provider] - 1 Week Discharge Medications: New prednisone 10 mg tablet See Taper PO DIRECTED Qty: 30 0RF Taper: Prednisone 40 mg daily for 3 Days and 0 Hour 30 mg daily for 3 Days and 0 Hour 20 mg daily for 3 Days and 0 Hour 10 mg daily for 3 Days and 0 Hour Rx Instructions: see taper instructions Continued alprazolam 0.5 mg tablet 0.5 mg PO QID PRN (Reason: Anxiety) Spiriva Respimat 2.5 mcg/actuation mist 2 puff inhalation DAILY ipratropium-albuterol 0.5 mg-3 mg(2.5 mg base)/3 mL solution for nebulization 3 ml inhalation BID-TID PRN (Reason: wheezing) Rx Instructions: Use TID albuterol sulfate [ProAir HFA] 90 mcg/actuation HFA aerosol inhaler 2 puff inhalation Q6H PRN (Reason: shortness of breath or wheezing) simvastatin 20 mg tablet 20 mg PO BEDTIME lisinopril 20 mg tablet 20 mg PO DAILY clopidogrel 75 mg tablet 75 mg PO DAILY aspirin 81 mg tablet,delayed release (DR/EC) 81 mg PO DAILY Discharge Orders: Discharge Order (Routine); Ordered 03/02/23 Ordered By: Estrella Moscoso Diet: Advance to usual diet Activity on Discharge: As tolerated Stand Alone Forms: Patient Portal Discharge page Care Plan Goals: Complete resolution of symptoms Health Concerns: COPD exacerbation Hyperkalemia Plan of Treatment: Follow-up with primary care provider as needed Take all medications as prescribed Assessment: See discharge summary
--- NOTE | 2023-03-02 09:16 | MHC.CM.PN ---
PER HOSPITALIST SHIVA PT TO D/C HOME PENDING HOME O2 EVAL W/FAMILY FOR TRANSPORT
[2023-03-02 09:28] VITALS: PULSE 102; PULSE 123; PULSE 85; PULSE 95; PULSE 97; O2SAT 82; O2SAT 87; O2SAT 89; O2SAT 90; O2SAT 92
== END 2023-03-02 12:00 | disposition home health service (06) | DRG 192 ==
LOC: HO.ED 11:47 → HO.EDOVER 12:56 → HO.S3 13:35
PROVIDERS: Admitting Provider Nurse Practitioner Acute Care; Emergency Provider Emergency Medicine; PCP Nurse Practitioner Family; Visit Provider Nurse Practitioner Acute Care
DX: J43.9 Emphysema, unspecified (principal); E87.5 Hyperkalemia; I10 Essential (primary) hypertension; E78.5 Hyperlipidemia, unspecified; Z87.891 Personal history of nicotine dependence; Z79.02 Long term (current) use of antithrombotics/antiplatelets; Z79.82 Long term (current) use of aspirin; Z79.899 Other long term (current) drug therapy
CPT/HCPCS: 0241U; 36415; 71045; 80048; 84484; 85025; 85027; 93005; 94640; 99285; J0456; J1643; J2920

== ENCOUNTER → 2023-02-28 12:42 | Outpatient (BNV) | payer MEDICARE, SELFPAY | PROVIDERS: Admitting Provider Nurse Practitioner Acute Care; Emergency Provider Emergency Medicine; PCP Nurse Practitioner Family; Visit Provider Nurse Practitioner Acute Care | DX: J44.9 Chronic obstructive pulmonary disease, unspecified (principal) | CPT/HCPCS: 99223; 99232; 99239 ==

== ENCOUNTER 2023-03-15 03:39 | Inpatient (IN) | payer MEDICARE, SELFPAY ==
[2023-03-15] VITALS (11 sets, daily range): BP systolic 119–165; BP diastolic 53–87; PULSE 66–89; RESP 18–75; TEMP 36.2–37.4; O2SAT 94–100; BMI 25.1
--- NOTE | ~2023-03-15 | XR_ITS ---
EXAMINATION: XR CHEST CLINICAL INFORMATION: Dyspnea. COMPARISON: 02/28/2023 TECHNIQUE: Frontal view of the chest was obtained. FINDINGS: The cardiomediastinal silhouette is stable. The lung martinez are hyperinflated. There is no focal lung consolidation or pleural effusion. The bony structures and soft tissues are unremarkable. XR/XR chest 1V IMPRESSION: Emphysema/COPD. There is no focal lung consolidation or pleural effusion.
--- NOTE | ~2023-03-15 | CT_ITS ---
EXAMINATION: CT HEAD WITHOUT CONTRAST CLINICAL INFORMATION: Altered mental status COMPARISON: 11/22/2022 TECHNIQUE: Contiguous axial imaging was performed from the skull base to vertex without intravenous administration of contrast. This CT examination was performed using dose optimization techniques as appropriate, variously including the following: *Automated exposure control *Adjustment of mA and/or kV according to patient size (this includes techniques or standardized protocols for targeted exams where dose is matched to indication/reason for exam; i.e. extremities or head) *Use of iterative reconstruction technique DLP: 824 mGy-cm FINDINGS: CT examination of the brain shows age-related involutional changes with prominence of the ventricles and sulci. Periventricular white matter hypodensities are evident, likely on the basis of chronic microvascular ischemic disease. No acute hemorrhage, mass effect or shift is evident. In the posterior fossa, the brainstem, cerebellum and fourth ventricle are unremarkable. Retention cysts or polyps are evident within both maxillary sinuses. The mastoid air cells are well pneumatized and clear. Both orbits are aphakic. The bony calvarium is intact. CT/CT head/brain wo IV con IMPRESSION: Age-related involutional changes and microvascular disease. No acute hemorrhage, mass effect or shift. No acute intracranial pathology.
--- NOTE | 2023-03-15 03:54 | ECG_ITS ---
Test Reason : SOB Blood Pressure : / mmHG Vent. Rate : 062 BPM Atrial Rate : 062 BPM P-R Int : 160 ms QRS Dur : 130 ms QT Int : 428 ms P-R-T Axes : 000 -34 143 degrees QTc Int : 434 ms Sinus rhythm with Premature atrial complexes Left axis deviation Right bundle branch block Inferior infarct (cited on or before 28-FEB-2023) Abnormal ECG When compared with ECG of 28-FEB-2023 07:58, Premature atrial complexes are now Present Referred By: Generic ED Physician Electronically Signed By:LIZ SOTELO
--- NOTE | 2023-03-15 04:06 | ED.SOB ---
HPI - SOB/Dyspnea General Chief Complaint: Dyspnea Stated Complaint: sepsis Time Seen by Provider: 03/15/23 03:59 Source: patient Mode of arrival: EMS Limitations: no limitations History of Present Illness HPI Narrative: 82-year-old male who presents emergency department for evaluation of shortness of breath x2 days, worse the last 2 hours. The patient states he does have COPD and he believes that he is having a flare-up of his COPD. He states he has been feeling short of breath for approximately 2 days. The patient has had a cough which is nonproductive. He states that this morning his shortness of breath got worse to the point where he is having difficulty catching his breath so he called 911 and was brought to emergency department for evaluation. He denied fever or chills. He states he has had rhinorrhea and a nonproductive cough. He denied chest pain. He complains of shortness of breath and dyspnea on exertion. He denied nausea, vomiting, diarrhea, myalgias arthralgias. Patient does wear oxygen 2 L via nasal cannula. He states that he is a former smoker but smoked for 40 years. Patient was hospitalized from 02/28/2023 until 03/02/2023 for COPD exacerbation with no pneumonia. Related Data Home Medications Medication Instructions Recorded Confirmed clopidogrel 75 mg tablet 75 mg PO DAILY 05/13/20 02/28/23 lisinopril 20 mg tablet 20 mg PO DAILY 05/13/20 02/28/23 simvastatin 20 mg tablet 20 mg PO BEDTIME 05/13/20 02/28/23 aspirin 81 mg tablet,delayed 81 mg PO DAILY 08/25/22 02/28/23 release albuterol sulfate 90 mcg/actuation 2 puff inhalation Q6H PRN 02/28/23 02/28/23 aerosol inhaler (ProAir HFA) shortness of breath or wheezing alprazolam 0.5 mg tablet 0.5 mg PO QID PRN Anxiety 02/28/23 02/28/23 ipratropium 0.5 mg-albuterol 3 mg 3 ml inhalation BID-TID PRN 02/28/23 02/28/23 (2.5 mg base)/3 mL nebulization wheezing soln tiotropium bromide 2.5 2 puff inhalation DAILY COPD 02/28/23 02/28/23 mcg/actuation mist for inhalation (Spiriva Respimat) Previous Rx's Medication Instructions Recorded prednisone 10 mg tablet See Taper PO DIRECTED #30 tabs 03/02/23 Allergies Allergy/AdvReac Type Severity Reaction Status Date / Time No Known Allergies Allergy Mild NONE Verified 02/02/23 13:32 cats dogs ragweed dust pollen Allergy Unknown Unknown Uncoded 02/02/23 13:32 Review of Systems Review of Systems: Yes all other systems are reviewed and are negative [facility] Past Medical History [facility] Narrative: Social history: The patient denies tobacco use. He states that he is a former smoker and smoked for 40 years. Denies drug use. He lives at home with his . Medical History COPD (chronic obstructive pulmonary disease) Pulmonary emphysema Osteopenia Hyperparathyroidism Osteoporosis Vitamin D deficiency Multinodular thyroid Surgical History Hx of prostatectomy Hx of hernia repair Family History Family History Father No problems noted. Mother No problems noted. Social History Social History Household Members: Spouse Household Members Other:: 1 Do you presently have visiting nurse or other home services: No Alcohol intake: never Patient Tobacco Use Status: Former Tobacco user Smoked in Last 30 Days: No Use of substances other than those prescribed or required for medical reasons: No Advance Directives: Yes Advance Directives on File: Yes Advance Directives Date on File: 02/28/23 service: No Physical Exam Vital Signs: Vital Signs: Last Vital Signs Temp 99.4 F 03/15/23 06:08 Pulse 76 03/15/23 06:08 Resp 20 03/15/23 06:08 BP 119/59 L 03/15/23 06:08 Pulse Ox 97 03/15/23 06:08 O2 Del Method Nasal Cannula 03/15/23 06:08 O2 Flow Rate 1 03/15/23 06:08 Oxygen Flow Rate 4 03/15/23 03:57 BMI result Body Mass Index 25.1 Vital signs revealed an O2 saturation of 100% on 4 L via nasal cannula, elevated respiratory rate of 27, he is afebrile with a temperature of 97.9 degrees. Exam: General: Awake, alert in no distress Head: Normocephalic, atraumatic EENT: PERRL, Lids normal, sclera normal, conjunctiva normal, nose normal , ears normal, throat without erythema or exudates Neck: Supple, no adenopathy, trachea midline and nontender Lung: breath sounds symmetric, no wheezing, diffuse rhonchi, rales at the bases Chest: symmetric movement, nontender Heart: regular rate and rhythm, normal S1, S2 no murmurs or rubs Abdomen: soft, non-tender, nondistended, normal bowel sounds Back: no vertebral tenderness, no CVAT Extremities: no deformities, moves all extremities symmetrically Skin: no rashes, no lesion, normal color and warmth Neuro: Awake, alert, oriented, normal speech, cranial nerves intact, moves all extremities symmetrically Psych: Pleasant, cooperative Medications Administered Discontinued Medications Generic Name Dose Route Start Last Admin Trade Name Freq PRN Reason Stop Dose Admin Albuterol/Ipratropium 3 ml 03/15/23 04:08 03/15/23 04:55 Albuterol/Iprat 2.5/0.5mg 3 Ml Ampul.Neb INHALE 03/15/23 04:09 3 ml ONCE ONE Administration Methylprednisolone Sodium Succinate 125 mg 03/15/23 04:05 03/15/23 04:14 Methylprednisolone Sod Succ 125 Mg/2 Ml Vial IVPUSH 03/15/23 04:06 125 mg ONCE ONE Administration Medical Decision Making Medical Decision Making [facility] Narrative: 82-year-old male with a history of hypertension, hyperlipidemia, COPD on home oxygen who presents emergency department for evaluation of shortness of breath x2 days with nonproductive cough x2 days. Patient states that his shortness of breath got worse several hours prior to coming to the emergency department, was having difficulty catching his breath so he called 911 and was brought to emergency department. The patient's O2 saturation was 100% on 4 L via nasal cannula, respiratory rate was elevated at 27. Lung exam revealed diffuse rhonchi with rales at the bases with no wheezing. The following evaluation was ordered: CBC, CMP, PT/INR, PTT, lactic acid, COVID-19, influenza, VBG, blood cultures x2, EKG, chest x-ray one view. I ordered the respiratory bronchodilator protocol on the patient and the patient was given a DuoNeb nebulizer. I also ordered Solu-Medrol 125 mg IV 0612: The patient did get some improvement with the above treatment however he states that he still feels short of breath. I did contact the respiratory therapist and the patient was given a 2nd DuoNeb nebulizer. Patient's laboratory evaluation [place] [address], venous pH was 7.41 with a pCO2 of 48 which is reassuring. COVID-19 influenza were negative. Chest x-ray revealed no acute infiltrates. At this time I do not think that the patient needs any antibiotic treatment and his symptoms are consistent with a COPD exacerbation. I did discuss admission over tiger text with the covering hospitalist, Dr. Ingram and patient will be admitted to the hospital service. Differential Diagnosis Differential Diagnoses: The differential diagnosis associated with the presentation includes Differential diagnosis includes was not limited to COPD exacerbation, bacterial bronchitis, viral bronchitis, pneumonia, electrolyte abnormalities, anemia. Admission/Observation Consideration of admission/observation: Escalation of care including admission/observation considered Lab Data MDM Lab Attestation statement: I reviewed the patient's lab results. My interpretation patient's laboratory evaluation is as follows: Elevated WBC 32757, elevated BUN of 20. Venous blood gas was normal at 7.41 with elevated pCO2 48. COVID-19, influenza were negative. Lactic acid was normal. 03/15/23 04:07 03/15/23 04:07 Labs: Lab Results 03/15/23 03/15/23 03/15/23 Range/Units 04:07 04:19 04:22 WBC 12.8 H (4.8-10.8) X10*3/uL RBC 5.02 (4.60-5.80) X10*6/uL Hgb 16.3 (14.0-18.0) g/dl Hct 49.1 (42.0-52.0) % MCV 97.8 (80.0-98.0) fL MCH 32.5 (27.0-33.0) pg MCHC 33.2 (31.0-36.0) g/dl RDW 12.2 (11.0-16.0) % Plt Count 209 (160-400) X10*3/uL MPV 10.4 (9.4-12.4) fL Immature Gran % (Auto) 1.2 H (0.0-0.4) % Neut % (Auto) 78.6 H (45-73) % Lymph % (Auto) 10.4 L (20-40) % [place] % (Auto) 8.2 (2-11) % Eos % (Auto) 1.2 (0-4) % Baso % (Auto) 0.4 (0-2) % Lymph # (Auto) 1.3 (1.2-4.9) X10*3/uL [place] # (Auto) 1.1 (0.1-1.2) X10*3/uL Eos # (Auto) 0.2 (0.0-0.4) X10*3/uL Baso # (Auto) 0.1 (0.0-0.2) X10*3/uL Abs Immat Gran (auto) 0.16 H (0.00-0.03) X10*3/uL Absolute Neuts (auto) 10.1 H (2.0-8.3) x10*3/uL Absolute Nucleated RBC 0.000 (0.0-0.012) X10*3/uL Nucleated RBC % (auto) 0.0 (0.0-0.2) /100WBC PT 10.9 L (11.1-13.3) SEC INR 0.9 (0.9-1.1) APTT 25.9 L (26.0-36.4) SEC VBG pH 7.41 (7.32-7.43) VBG pCO2 48 mmHg VBG pO2 33 mmHg VBG HCO3 31 H (22-26) mmol/L VBG O2 Saturation 47.0 % VBG Base Excess 5.1 mmol/L Sodium 140 (135-145) mmol/L Potassium 4.4 (3.3-5.1) mmol/L Chloride 105 (96-108) mmol/L Carbon Dioxide 25 (22-29) mmol/L Anion Gap 14 (12-20) BUN 20 H (9-16) mg/dL Creatinine 1.33 (0.5-1.4) mg/dL Estim Creat Clear Calc 45.6 Estimated GFR 51 Random Glucose 101 (60-115) mg/dL Lactic Acid 1.5 (0.5-2.0) mmol/L Calcium 9.0 (8.4-10.2) mg/dL Total Bilirubin 1.0 (0.0-1.0) mg/dL AST 18 (5-37) U/L ALT 16 (0-40) U/L Alkaline Phosphatase 93 (39-117) U/L Total Protein 6.6 (6.5-8.0) g/dL Albumin 3.7 (3.5-5.0) g/dL COVID-19 (MIKEY) Negative (Negative) COVID-19 Clin Com See Note Influenza Type A (POLLY) Negative (Negative) Influenza Type B (POLLY) Negative (Negative) Influenza A & B Note See Note Independent Interpretation I performed an independent interpretation of an: EKG and Plain X-Ray Interpretation: My independent interpretation patient's 12 EKG is as follows: Normal sinus rhythm rate of 62, normal SD interval, prolonged QRS of 130 milliseconds, normal QTC of 434 milliseconds, right bundle-branch block, no ST segment elevation, no ST segment depression, no PACs, no PVCs. My independent interpretation patient's chest x-ray is as follows: COPD changes Radiology Impression Discussion of test interpretation with radiology: I have reviewed the radiologist's reading. Radiologist Impression: R chest 1V IMPRESSION: Emphysema/COPD. There is no focal lung consolidation or pleural effusion. Dictated By: Hari Herbert Independent Historian Clinical information obtained from an independent historian. History obtained from or confirmed by: Spouse External Record Review External record reviewed: Inpatient record (Hospitalist discharge note from 03/02/2023 ) Chronic Conditions Patient?s care impacted by: Other (COPD) Critical Care Time Critical Care Time Critical Care Time: Yes Total Critical Care Time: 35 Attestation: Critical Care: The patient was critically ill with a high probability of imminent or life threatening deterioration. I spent greater than 30 minutes of discontinuous time evaluating the patient,delivering critical care at the bedside, discussing and evaluating pertinent data with consultants. Critical care time does not include time spent performing separately billable procedures or teaching. Total time spent performing critical care was 35 minutes. Discharge Plan Discharge Clinical Impression: Acute exacerbation of chronic obstructive pulmonary disease, Acute dyspnea
[2023-03-15] MEDS: methylPREDNISolone Sod Succ 125 MG/2 ML VIAL IVPUSH (04:14)
[2023-03-15 04:19] LABS: Basophils Absolute Auto 0.1 X10*3/uL (0.0-0.2); Basophils Percent Auto 0.4 % (0-2); Eosinophils Absolute Auto 0.2 X10*3/uL (0.0-0.4); Eosinophils Percent Auto 1.2 % (0-4); Hematocrit 49.1 % (42.0-52.0); Hemoglobin 16.3 g/dl (14.0-18.0); Imm Gran Abs Auto 0.16 X10*3/uL (0.00-0.03); Imm Gran Pct Auto 1.2 % (0.0-0.4); Lymphocytes Absolute Auto 1.3 X10*3/uL (1.2-4.9); Lymphocytes Percent Auto 10.4 % (20-40); MANUAL DIFF FLAG NO; Mean Corpuscular HGB Conc 33.2 g/dl (31.0-36.0); Mean Corpuscular Hemoglobin 32.5 pg (27.0-33.0); Mean Corpuscular Volume 97.8 fL (80.0-98.0); Mean Platelet Volume 10.4 fL (9.4-12.4); Monocytes Absolute Auto 1.1 X10*3/uL (0.1-1.2); Monocytes Percent Auto 8.2 % (2-11); Neutrophils Absolute Auto 10.1 x10*3/uL (2.0-8.3); Neutrophils Percent Auto 78.6 % (45-73); Platelet Count 209 X10*3/uL (160-400); Red Blood Count 5.02 X10*6/uL (4.60-5.80); Red Cell Distribution Width 12.2 % (11.0-16.0); White Blood Count 12.8 X10*3/uL (4.8-10.8)
[2023-03-15 04:23] LABS: Venous Blood Gas Refer to POC result
--- NOTE | 2023-03-15 04:23 | MHC.EDTECH ---
Patient came in by ambulance ,patient was changed into hospital attire,vitals were taken. patient placed on panel monitor,EKG and labs were obtained. is at bedside at this time and call greer within reach.
[2023-03-15 04:24] LABS: INTERNATIONAL NORM RATIO 0.9 (0.9-1.1); Prothrombin Time 10.9 SEC (11.1-13.3)
[2023-03-15 04:25] LABS: VBG Base Excess 5.1 mmol/L; VBG HCO3 31 mmol/L (22-26); VBG pCO2 48 mmHg; VBG pH 7.41 (7.32-7.43); VBG pO2 33 mmHg
[2023-03-15 04:27] LABS: Partial Thromboplastin Time 25.9 SEC (26.0-36.4)
[2023-03-15 04:30] LABS: COVID-19 Test Negative (Negative); IDNOW Serial# BCCEAD1C
--- NOTE | 2023-03-15 04:30 | PC.NURSE ---
Pt aox3. Breathing treatment administered. VSS. Lung sounds are clear in all lobes. O2 sat 99% on 2L NC. NSR on monitor , with HR 64. Abd soft and non tender. Denies pain at this time. Reports dyspnea. Pending results. is at bedside. Pt aware of plan of care.
[2023-03-15 04:33] LABS: Lactic Acid 1.5 mmol/L (0.5-2.0)
[2023-03-15 04:37] LABS: Alanine Aminotransferase 16 U/L (0-40); Albumin Level 3.7 g/dL (3.5-5.0); Alkaline Phosphatase 93 U/L (39-117); Anion Gap 14 (12-20); Aspartate Amino Transferase 18 U/L (5-37); Blood Urea Nitrogen 20 mg/dL (9-16); Carbon Dioxide 25 mmol/L (22-29); Chloride 105 mmol/L (96-108); Creatinine Clr Calc Pharmacy 45.6; Estimated Glomerular Filt Rate 51; Glucose Random 101 mg/dL (60-115); Potassium 4.4 mmol/L (3.3-5.1); Sodium 140 mmol/L (135-145); Total Protein 6.6 g/dL (6.5-8.0)
[2023-03-15 04:40] LABS: IDNOW Serial# 08D9AD1C; Influenza A Negative (Negative); Influenza B2 Negative (Negative)
[2023-03-15] MEDS: Albuterol/Iprat 2.5/0.5MG 3 ML AMPUL.NEB INHALE ×2 (04:55→06:34)
--- NOTE | 2023-03-15 06:10 | MHC.EDTECH ---
Hourly rounds and vitals completed, patient repositioned to comfort and call greer in reach. at bedside
--- NOTE | 2023-03-15 07:36 | PC.NURSE ---
Assumed care of this patient at 0700. Patient resting quietly in bed at this time. No apparent distress.
--- NOTE | 2023-03-15 08:19 | PC.NURSE ---
A & Ox 3. Lungs CTA in all martinez. 1L Oxygen via nc stats 96-98%. C/o dyspnea. Abdomen soft and non tender. No edema noted. at bedside.
--- NOTE | 2023-03-15 08:51 | PHA.MEDREC ---
Pharmacy Consult ? Medication Reconciliation Pharmacy has completed the medication reconciliation. Patient's at bedside with medication list that matches claim history. Patient recently discharged 03/02
--- NOTE | 2023-03-15 09:17 | MHC.EDTECH ---
pt belongings list completed.
--- NOTE | 2023-03-15 09:17 | MHC.EDTECH ---
pt ate 25% of breakfast this morning
--- NOTE | 2023-03-15 10:20 | P.HPHOSP_ITS ---
History of Present Illness Date of Service: 03/15/23 Chief Complaint: Shortness of breath 82 year old man presenting with copd on 2 liters at home, he was fine until 5 am this morning when he woke up sob and coudn't breath, he denies cough or fever, no chest pain. Work up in ED include unremarkable xray of chest, negative covid and influenza. Given Neb and IV steroid and he's feeling much better, in fact he has taken off his O2 and is sating 97 on room air. He will be observed overnight. Review of Systems 2 Review of Systems: Gen: no fever Resp: + sob, no cough CV: no chest, no BUSTAMANTE, no leg edema GI: No n/v, no abd pain Neuro: No confusion Yes all other systems are reviewed and are negative [facility] Medical History COPD (chronic obstructive pulmonary disease) Pulmonary emphysema Osteopenia Hyperparathyroidism Osteoporosis Vitamin D deficiency Multinodular thyroid Family History Father No problems noted. Mother No problems noted. Surgical History Hx of prostatectomy Hx of hernia repair Social History Household Members: Spouse Household Members Other:: 1 Do you presently have visiting nurse or other home services: No Alcohol intake: never Patient Tobacco Use Status: Former Tobacco user Smoked in Last 30 Days: No Use of substances other than those prescribed or required for medical reasons: No Advance Directives: Yes Advance Directives on File: Yes Advance Directives Date on File: 02/28/23 service: No Meds Allergies Allergy/AdvReac Type Severity Reaction Status Date / Time No Known Allergies Allergy Mild NONE Verified 02/02/23 13:32 cats dogs ragweed dust pollen Allergy Unknown Unknown Uncoded 02/02/23 13:32 Home Medications Medication Instructions Recorded Confirmed Last Taken Type clopidogrel 75 mg tablet 75 mg PO DAILY 05/13/20 03/15/23 03/14/23 History lisinopril 20 mg tablet 20 mg PO DAILY 05/13/20 03/15/23 03/14/23 History simvastatin 20 mg tablet 20 mg PO BEDTIME 05/13/20 03/15/23 03/14/23 History aspirin 81 mg tablet,delayed 81 mg PO DAILY 08/25/22 03/15/23 03/14/23 History release albuterol sulfate 90 mcg/actuation 2 puff inhalation Q6H PRN 02/28/23 03/15/23 03/14/23 History aerosol inhaler (ProAir HFA) shortness of breath or wheezing alprazolam 0.5 mg tablet 0.5 mg PO QID PRN Anxiety 02/28/23 03/15/23 03/14/23 History ipratropium 0.5 mg-albuterol 3 mg 3 ml inhalation BID-TID PRN 02/28/23 03/15/23 03/14/23 History (2.5 mg base)/3 mL nebulization wheezing soln tiotropium bromide 2.5 2 puff inhalation DAILY COPD 02/28/23 03/15/23 03/14/23 History mcg/actuation mist for inhalation (Spiriva Respimat) Physical Exam 2 Vital Signs and Narrative: Vital Signs: Last Vital Signs Temp 99.4 F 03/15/23 06:08 Pulse 68 03/15/23 07:10 Resp 24 H 03/15/23 07:10 BP 146/73 H 03/15/23 07:10 Pulse Ox 97 03/15/23 07:10 O2 Del Method Nasal Cannula, Na karthik Cannula with C apnography 03/15/23 07:10 O2 Flow Rate 1 03/15/23 07:10 Oxygen Flow Rate 4 03/15/23 03:57 BMI result Body Mass Index 25.1 Const: Other: Constitutional: Alert, in no distress, Mental Status: Oriented to person, place and time. Eyes: Pupils are equal, round and reactive to light. Ear, Nose and Throat: Oropharynx clear, mucous membranes moist. Respiratory: Clear to auscultation. No wheezing, rales or rhonchi. Cardiovascular: S1 S2 regular. No murmurs, rubs or gallops. Gastrointestinal: Abdomen soft, non-tender, non-distended. Normal bowel sounds.? Neurologic: Cranial nerves II-XII grossly intact. No focal neurological deficits. Moves all extremities spontaneously.? Skin: No rashes or lesions.? Musculoskeletal: No cyanosis or clubbing. Psychiatric: Normal mood and affect? Results Labs 03/15/23 04:07 03/15/23 04:07 Labs: Laboratory Results - last 24 hr 03/15/23 03/15/23 03/15/23 04:07 04:19 04:22 MCV 97.8 MCH 32.5 MCHC 33.2 RDW 12.2 Plt Count 209 MPV 10.4 Immature Gran % (Auto) 1.2 H Neut % (Auto) 78.6 H Lymph % (Auto) 10.4 L [place] % (Auto) 8.2 Eos % (Auto) 1.2 Baso % (Auto) 0.4 Lymph # (Auto) 1.3 [place] # (Auto) 1.1 Eos # (Auto) 0.2 Baso # (Auto) 0.1 Abs Immat Gran (auto) 0.16 H Absolute Neuts (auto) 10.1 H Absolute Nucleated RBC 0.000 Nucleated RBC % (auto) 0.0 PT 10.9 L INR 0.9 APTT 25.9 L VBG pH 7.41 VBG pCO2 48 VBG pO2 33 VBG HCO3 31 H VBG O2 Saturation 47.0 VBG Base Excess 5.1 Anion Gap 14 Estim Creat Clear Calc 45.6 Estimated GFR 51 Random Glucose 101 Lactic Acid 1.5 Calcium 9.0 Total Bilirubin 1.0 AST 18 ALT 16 Alkaline Phosphatase 93 Total Protein 6.6 Albumin 3.7 COVID-19 (MIKEY) Negative COVID-19 Clin Com See Note Influenza Type A (POLLY) Negative Influenza Type B (POLLY) Negative Influenza A & B Note See Note Imaging Radiologist's Impressions: Impressions Chest X-Ray 03/15/23 04:27 IMPRESSION: Emphysema/COPD. There is no focal lung consolidation or pleural effusion. Assessment and Plan (1) Acute dyspnea: Status: Acute (2) Acute exacerbation of chronic obstructive pulmonary disease: Status: Acute Plan 82 year old male with copd here with acute exacerbation and already much improved Acute COPD exacerbation--no hypoxia, continue IV solumedrol today and change to Prednisone by tomorrow HTN continue home meds CAD--plavix, asa, statin HLD--statin anxiety ---Xanax dvt p: lovenox Obs, and likely d/c tomorrow Time Spent With Patient Time: Total time managing care of this patient today ____ minutes. Quality Stroke Does the patient have a stroke diagnosis?: No VTE Prior VTE?: No VTE Risk Level:: Medical - moderate - high VTE Device Contraindication: Treatment Not Indicated VTE Drug Contraindication: N/A - Med Ordered
[2023-03-15] MEDS: Enoxaparin Sodium 40 MG/0.4 ML SYRINGE SUBCUT (11:39)
--- NOTE | 2023-03-15 11:54 | P.CDIM_ITS ---
PROVIDER RESPONSE TEXT: To clarify, the appropriate diagnosis supported by the clinical indicators: Chronic respiratory failure QUERY TEXT: PHYSICIAN'S DOCUMENTATION REQUEST Date of Query: 03/15/2023 11:34 AM EDT Patient Name: Kvng Leyva Admit Date: 03/15/2023 Dear Herman Oleary, A review of the medical record indicates additional documentation may be needed. Please review below and update the documentation accordingly. Clinical Indicators: ED: Patient complains of shortness of breath, dyspnea on exertion, wears oxygen 2 L via nasal cannula . History of smoker for 40 years. Ed: Ox saturation of 100% on 4 liters nc with RR 27. Chronic respiratory failure Acute on chronic respiratory failure O2 dependent Other please specify Other (explain)Clinically unable to determine (explain)Thank you, Laure Veliz, CCS, CDIS Use of terms such as suspected, likely, concern for, or probable (associated with a specific diagnosi s that is being evaluated, monitored, or treated as if it exists) are acceptable and can be coded in the inpatient se tting, when documented at the time of discharge. Please use your independent medical judgment in providing your response. THIS QUERY IS PART OF THE PERMANENT MEDICAL RECORD
--- NOTE | 2023-03-15 16:49 | PC.NURSE ---
This RN attempted to give to report to Iveth on S3. RN to call back, unavailable at this time.
[2023-03-16] VITALS: BP 134/80; PULSE 78; RESP 18; TEMP 36.3; O2SAT 96
[2023-03-16] MEDS: 0.9 % Sodium Chloride Flush 3 ML SYRINGE IVFLUSH ×3 (00:37→15:09)
[2023-03-16 03:31] VITALS: BP 145/69; PULSE 93; RESP 18; TEMP 36.1; O2SAT 94
[2023-03-16 07:46] VITALS: BP 138/68; PULSE 96; RESP 18; TEMP 36; O2SAT 96
[2023-03-16] MEDS: LORazepam 2 MG/ML VIAL 0.5 MG IVPUSH ×2 (10:20→18:01)
--- NOTE | 2023-03-16 12:38 | MHC.CM.PN ---
[facility] DELIVERED PT IS VERY CONFUSED AND AGITATED. CM SPOKE WITH SPOUSE WHO WAS ABLE TO ASSIST WITH ASSESSMENT. INDEPENDENT WITH MOBILITY AT BASELINE IN HOME. HAS 02 AT 2L AT HOME VIA [place]. USES WALKER WHEN OUT OF HOME. +COVID V[facility] NO HCP FOUND AT PCP OFFICE. PER , HE DID NOT WANT TO FILL ONE OUT. PCP ROSALBA SYLVESTER . DP: HOME WITH RESUMPTION OF [facility], [facility] SERVICES. PT KICKED [facility] OUT PER SPOUSE. CM WILL CONTINUE TO FOLLOW FOR ANY CHANGE IN DC PLAN/NEEDS. SPOUSE WILL TRANSPORT.
--- NOTE | 2023-03-16 13:20 | P.PNIM_ITS ---
Subjective Subjective Date of Service: 03/16/23 Interval History: copd excerebation Review of Systems not sob seems anxious ,agiatated ,somewhat confused Physical Exam 2 Vital Signs: Vital Signs: Last Vital Signs Temp 96.8 F 03/16/23 07:46 Pulse 96 03/16/23 07:46 Resp 18 03/16/23 07:46 BP 138/68 03/16/23 07:46 Pulse Ox 96 03/16/23 07:46 O2 Del Method Room Air 03/16/23 07:46 O2 Flow Rate 1 03/15/23 20:00 Oxygen Flow Rate 4 03/15/23 03:57 BMI result Body Mass Index 25.1 Appearance:limited exam due to patient nocooperation. cvs: rrr, [id number]. res: air entry fair , no wheezin abd: soft ,nt, bs present. ext pulses present , no cyanosis . neuro: axo3 , nonfocal. Objective Data Active Medications Acetaminophen (Acetaminophen 325 Mg Tablet) 650 mg PO Q6H PRN PRN Reason: Pain, Mild (Pain Scale 1-3) Al Hydroxide/Mg Hydroxide (Magnesium Hydrox/Alum Hydrox 30 Ml Oral.Susp) 30 ml PO Q4H PRN PRN Reason: Heartburn/Nausea Enoxaparin Sodium (Enoxaparin Sodium 40 Mg/0.4 Ml Syringe) 40 mg SUBCUT Q24H [facility] Last Admin: 03/16/23 10:19 Dose: Not Given Documented By: YONY Non-Admin Reason: Patient Refused Ondansetron HCl (Ondansetron Hcl 4 Mg/2 Ml Vial) 4 mg IVPUSH Q8H PRN PRN Reason: Nausea and Vomiting Sodium Chloride (0.9 % Sodium Chloride Flush 3 Ml Syringe) 3 ml IVFLUSH QSHIFT [facility] Last Admin: 03/16/23 07:05 Dose: 3 ml Documented By: YONY Labs 03/15/23 04:07 03/16/23 14:24 Microbiology Microbiology Results: Microbiology 03/15/23 04:07 Blood Culture - Preliminary Blood - Venous No growth after 24 hours. 03/15/23 04:07 Blood Culture - Preliminary Blood - Venous No growth after 24 hours. Assessment and Plan (1) Acute exacerbation of chronic obstructive pulmonary disease: Status: Acute Plan 82 year old male with copd here with acute exacerbation and already much improved Acute COPD exacerbation--no hypoxia, continue IV solumedrol today and change to Prednisone by tomorrow anxiety vs delirum not hypoxic lft's normal may be related to steriod use. will check bmp, hold steriods also if does not improve will add ct head added psych eval HTN continue home meds CAD--plavix, asa, statin HLD--statin anxiety ---Xanax dvt p: lovenox ongoing hospitlisation need-anxiety vs delirum Time Spent With Patient Time: Total time managing care of this patient today ____ minutes. Quality Stroke Does the patient have a stroke diagnosis?: No VTE Prior VTE?: No VTE Risk Level:: Medical - moderate - high VTE Device Contraindication: Treatment Not Indicated VTE Drug Contraindication: N/A - Med Ordered
[2023-03-16 15:09] VITALS: BP 149/70; PULSE 75; RESP 18; TEMP 36.8; O2SAT 97
[2023-03-16 15:22] LABS: Anion Gap 14 (12-20); Blood Urea Nitrogen 33 mg/dL (9-16); Calcium 9.1 mg/dL (8.4-10.2); Carbon Dioxide 29 mmol/L (22-29); Chloride 102 mmol/L (96-108); Creatinine Clr Calc Pharmacy 50.1; Estimated Glomerular Filt Rate 57; Glucose Random 94 mg/dL (60-115); Potassium 5.1 mmol/L (3.3-5.1); Sodium 140 mmol/L (135-145)
--- NOTE | 2023-03-16 16:06 | PC.NURSE ---
10 am pt became confused, unable to state his name , or place , and unable to redirect , pt in [address] , pt became agitated and combative , security called , nursing resident at pt side , made aware and at bedside . This rn medicated with iv Ativan . pt at bedside attempting to calm pt down . 1600 pt able to state name and place . pt went down for head CT with no difficulty . pt cooperative . aware
--- NOTE | 2023-03-16 18:11 | PC.NURSE ---
1800 pt combative with staff - punching and kicking , security called , made aware , 0.5mg of Ativan given with assistance of security .
[2023-03-16] MEDS: OLANZapine 10 MG VIAL 5 MG IM (20:08)
[2023-03-16] MEDS: Haloperidol Lactate 5 MG/ML VIAL IM (22:04)
--- NOTE | 2023-03-17 00:38 | PC.NURSE ---
[facility] room called for a fall for this patient. Pt has a sitter at bedside. Per the sitter patient got on his knees and got on the floor . This RN did not witnessed the incident. Patient is sleeping, in no apparent respiratory distress. O2 at 95 % on room air , vital signs within normal limits. Patient had about 1/4 of laceration to the left elbow. Gauze and Tergaderm applied. Bleeding under control. No other injury noted. Dr. Ingram was notified and supervisor blast furnace is aware. Will continue to monitor.
[2023-03-17 08:00] VITALS: BP 134/86; PULSE 73; RESP 17; TEMP 36.6; O2SAT 93
[2023-03-17] MEDS: Enoxaparin Sodium 40 MG/0.4 ML SYRINGE SUBCUT (09:59)
[2023-03-17 15:21] VITALS: BP 137/75; PULSE 73; RESP 20; TEMP 36.6
--- NOTE | 2023-03-17 15:34 | MHC.CM.PN ---
per rounds pt to have psych eval md would like a vna referral given
--- NOTE | 2023-03-17 15:53 | P.PNIM_ITS ---
Subjective Subjective Date of Service: 03/18/23 Interval History: ? cognitive imairment /sundowning Review of Systems not sob-seems anxious ,intermittent agiatation Physical Exam 2 Vital Signs: Vital Signs: Last Vital Signs Temp 97.8 F 03/17/23 15:21 Pulse 73 03/17/23 15:21 Resp 20 03/17/23 15:21 BP 137/75 03/17/23 15:21 Pulse Ox 93 03/17/23 08:00 O2 Del Method Room Air 03/17/23 15:21 O2 Flow Rate 2.0 03/16/23 15:09 Oxygen Flow Rate 4 03/15/23 03:57 BMI result Body Mass Index 25.1 Appearance:limited exam due to patient no cooperation. cvs: rrr, [id number]. res: air entry fair . abd: soft ,nt, bs present. ext pulses present , no cyanosis . neuro: axo3 , nonfocal. Objective Data Active Medications Acetaminophen (Acetaminophen 325 Mg Tablet) 650 mg PO Q6H PRN PRN Reason: Pain, Mild (Pain Scale 1-3) Al Hydroxide/Mg Hydroxide (Magnesium Hydrox/Alum Hydrox 30 Ml Oral.Susp) 30 ml PO Q4H PRN PRN Reason: Heartburn/Nausea Alprazolam (Alprazolam 0.5 Mg Tablet) 0.5 mg PO QID PRN PRN Reason: anxiety/restlessness Enoxaparin Sodium (Enoxaparin Sodium 40 Mg/0.4 Ml Syringe) 40 mg SUBCUT Q24H [facility] Last Admin: 03/17/23 09:59 Dose: 40 mg Documented By: KELLY Ondansetron HCl (Ondansetron Hcl 4 Mg/2 Ml Vial) 4 mg IVPUSH Q8H PRN PRN Reason: Nausea and Vomiting Quetiapine Fumarate (Quetiapine Fumarate 25 Mg Tablet) 25 mg PO BID PRN PRN Reason: agitation Sodium Chloride (0.9 % Sodium Chloride Flush 3 Ml Syringe) 3 ml IVFLUSH QSHIFT [facility] Last Admin: 03/17/23 10:37 Dose: Not Given Documented By: KELLY Non-Admin Reason: See Note Labs 03/17/23 16:37 03/16/23 14:24 Microbiology Microbiology Results: Microbiology 03/15/23 04:07 Blood Culture - Preliminary Blood - Venous No growth after 48 hours. 03/15/23 04:07 Blood Culture - Preliminary Blood - Venous No growth after 48 hours. Assessment and Plan (1) Encephalopathy: Status: Acute Plan 82 year old male with copd here with acute exacerbation and already much improved Acute COPD exacerbation--no hypoxia, continue albuterol anxiety vs delirum vs encephalopathy as per pcp- recently taken off xanax ( which he was taking from many years) not hypoxic lft's normal,off steriods b12,tsh normal ct head wan-[id number] involutional changes and microvascular disease. psych eval-adjusted seoquel,also recived zyprexa im BH-OT added neurology eval HTN continue home meds CAD--plavix, asa, statin HLD--statin anxiety ---Xanax dvt p: lovenox ongoing hospitlisation need-anxiety vs delirum vs encephalopathy unclear etiology -need neurology eval, psych follow up ,moniter for behavioural agaitation Time Spent With Patient Time: Total time managing care of this patient today ____ minutes. Quality Stroke Does the patient have a stroke diagnosis?: No VTE Prior VTE?: No VTE Risk Level:: Medical - moderate - high VTE Device Contraindication: Treatment Not Indicated VTE Drug Contraindication: N/A - Med Ordered
--- NOTE | 2023-03-17 16:25 | P.CNPS_ITS ---
History of Present Illness Date of Service: 03/17/2023 Chief Complaint: Copd ex Reason for Consult: behavioral outburst Requesting physician: Natividad Frausto Discussed with referring provider: Yes Sources of Information: patient interviewed, chart reviewed and crisis/core team assessment reviewed HPI Narrative: Mr. Leyva is a 82 year-old male with hx of COPD who came with reports of SOB, however, O2sat 97% on RO. Pt admitted for exacerbation initially started on methylprednisolone, now d/conrad. Pt has been having some combative behaviors in the evening but also at noon. He has received combination of olanzapine, haldol IM. Pt seen with by his side. Pt reports he knows he is at [facility]. He reports he had problem with nebulizer and came to the hospital. He reports feeling better and hoping to go back home soon. He reports 30+ years of xanax 0.5mg po QID- both reports not taking it consistently and his PCP stop it week ago. He does not present with psychosis or delusions. His attention is fairly intact- less signs of delirium at this point. But I do suspect underlying dementia. [facility] Medical History COPD (chronic obstructive pulmonary disease) Pulmonary emphysema Osteopenia Hyperparathyroidism Osteoporosis Vitamin D deficiency Multinodular thyroid Surgical History Hx of prostatectomy Hx of hernia repair Diagnostics Vital Signs (24Hr): Vital Signs - 24 hr 03/17/23 08:00 03/17/23 15:21 Temperature 97.9 F 97.8 F Pulse Rate 73 73 Respiratory Rate 17 20 Blood Pressure 134/86 137/75 Pulse Oximetry 93 Oxygen Delivery Method Room Air Room Air BMI result Body Mass Index 25.1 Labs 03/17/23 16:37 03/18/23 16:58 Labs: Laboratory Results - last 48 hr 03/16/23 14:24 Sodium 140 Potassium 5.1 Chloride 102 Carbon Dioxide 29 Anion Gap 14 BUN 33 H Creatinine 1.21 Estim Creat Clear Calc 50.1 Estimated GFR 57 Random Glucose 94 Calcium 9.1 Imaging Radiology Impressions: ITS Impressions Chest X-Ray 03/15/23 04:27 IMPRESSION: Emphysema/COPD. There is no focal lung consolidation or pleural effusion. Head CT 03/16/23 15:44 IMPRESSION: Age-related involutional changes and microvascular disease. No acute hemorrhage, mass effect or shift. No acute intracranial pathology. Mental Status Exam Mental Status Exam Narrative: Appearance: wearing hospital gown, fair hygiene, in NAD Behavior: cooperative, somewhat irritable edge. Psychomotor: no agitation or retardation noted Speech: mostly clear, normal rate/rhythm/volume, spontaneous TP: mostly linear TC: feeling better, wanting to go home soon Mood: good' Affect: congruent, with slightly irritable edge (wanting to go home soon) SI: denies HI: denies VH/AH: none Delusions: no delusional content noted or reported. insight/judgment: impaired x 2 Memory/cog: alert, oriented to place, not sure about month Medications Medications Current Medications Acetaminophen (Acetaminophen 325 Mg Tablet) 650 mg PO Q6H PRN PRN Reason: Pain, Mild (Pain Scale 1-3) Al Hydroxide/Mg Hydroxide (Magnesium Hydrox/Alum Hydrox 30 Ml Oral.Susp) 30 ml PO Q4H PRN PRN Reason: Heartburn/Nausea Enoxaparin Sodium (Enoxaparin Sodium 40 Mg/0.4 Ml Syringe) 40 mg SUBCUT Q24H [facility] Last Admin: 03/17/23 09:59 Dose: 40 mg Ondansetron HCl (Ondansetron Hcl 4 Mg/2 Ml Vial) 4 mg IVPUSH Q8H PRN PRN Reason: Nausea and Vomiting Quetiapine Fumarate (Quetiapine Fumarate 25 Mg Tablet) 25 mg PO BID PRN PRN Reason: agitation Sodium Chloride (0.9 % Sodium Chloride Flush 3 Ml Syringe) 3 ml IVFLUSH QSHIFT [facility] Last Admin: 03/17/23 10:37 Dose: Not Given Allergies Allergies Allergy/AdvReac Type Severity Reaction Status Date / Time No Known Allergies Allergy Mild NONE Verified 02/02/23 13:32 cats dogs ragweed dust pollen Allergy Unknown Unknown Uncoded 02/02/23 13:32 Assessment & Plan Assessment & Plan (1) Cognitive impairment: Status: Acute Code(s): R41.89 - Other symptoms and signs involving cognitive functions and awareness Plan Pt currently presents with fairly intact attention, does know this is the hospital and has some vague idea that reason for hospitalization is due to changes he did to nebulizer at home and SOB. However, his o2sat in ED on room air 97%. He does not present as particularly delirius at this time but I do suspect underlying dementia. reports at times he gets comfused and more combative in evening and she states she usually would leave the house to stay with her daughter. This is concerning as pt appears to have dementia and not safe to be on his own. reports he has not been formally dx with dementia. PLAN 1. schedule seroquel 25mg po BID 2. OT to complete MOCA and ACL 3. psych to continue to monitor. Total time managing care of this patient today ____ minutes.
[2023-03-17 16:49] LABS: Hematocrit 47.1 % (42.0-52.0); Hemoglobin 15.6 g/dl (14.0-18.0); Mean Corpuscular HGB Conc 33.1 g/dl (31.0-36.0); Mean Corpuscular Hemoglobin 32.6 pg (27.0-33.0); Mean Corpuscular Volume 98.3 fL (80.0-98.0); Mean Platelet Volume 11.1 fL (9.4-12.4); Platelet Count 160 X10*3/uL (160-400); Red Blood Count 4.79 X10*6/uL (4.60-5.80); Red Cell Distribution Width 12.1 % (11.0-16.0)
[2023-03-17] MEDS: Lactated Ringers 1,000 ML 100 ML IVCONT (17:16)
[2023-03-17 17:26] LABS: Thyroid Stimulating Hormone 2.35 uIU/mL (0.32-4.0)
[2023-03-17 17:33] LABS: Vitamin B12 406 pg/mL (200-900)
[2023-03-17 18:58] VITALS: BP 91/52; PULSE 66; RESP 18; TEMP 36.7; O2SAT 95
[2023-03-17] MEDS: QUEtiapine Fumarate 50 MG TABLET PO (20:48)
[2023-03-18] VITALS: BP 99/57; PULSE 119; RESP 16; TEMP 36.1; O2SAT 96
[2023-03-18 03:59] VITALS: BP 95/63; PULSE 66; RESP 16; TEMP 36; O2SAT 96
[2023-03-18] MEDS: Lactated Ringers 1,000 ML 100 ML IVCONT (05:04)
[2023-03-18] MEDS: OLANZapine 10 MG VIAL 5 MG IM ×3 (05:24→21:24)
[2023-03-18 07:55] VITALS: BP 100/55; PULSE 78; RESP 20; TEMP 36.4; O2SAT 96
--- NOTE | 2023-03-18 14:22 | PC.NURSE ---
Pt refusing to be cleaned up after having a BM, combative and agitated.
--- NOTE | 2023-03-18 14:35 | P.CDIM_ITS ---
PROVIDER RESPONSE TEXT: To clarify, the appropriate diagnosis supported by the clinical indicators: Encephalopathy: unclear etiology QUERY TEXT: PHYSICIAN'S DOCUMENTATION REQUEST Date of Query: 03/18/2023 10:32 AM EDT Patient Name: Kvng Leyva Admit Date: 03/15/2023 Dear Natividad Frausto, A review of the medical record indicates additional documentation may be needed. Please review below and update the documentation accordingly. Clinical Indicators: H&P: Anxiety-Xanax Nursing notes 03/16 - Patient combative with staff - punching and kicking, security called - Ativan gi joseph with assistance of security. Behavior issues, avoid further benzo use. Sitter in the room, agitated, somewhat confused. Seroquel Based on the above, could you clarify if any of the following, is the most likely etiology of the con fusion/altered mental status? Encephalopathy Indicate type such as metabolic, toxic, hypertensive, etc. Acute delirium Indicate known or suspected etiology, such as postoperative, due to narcotics or other drugs, etc. Baseline dementia Indicate type, such as Alzheimer's, senile, vascular, Lewy body, etc., and any associated behavioral disturbances (aggressive, combative, or violent behavior) Acute or subacute confusional state due to Specify known or suspected etiology Other (explain)Clinically unable to determine (explain)Thank you, Laure Veliz, CCS, CDIS Use of terms such as suspected, likely, concern for, or probable (associated with a specific diagnosi s that is being evaluated, monitored, or treated as if it exists) are acceptable and can be coded in the inpatient se tting, when documented at the time of discharge. Please use your independent medical judgment in providing your response. THIS QUERY IS PART OF THE PERMANENT MEDICAL RECORD
--- NOTE | 2023-03-18 15:06 | MHC.CM.PN ---
PT REMAINS ON 1: 1 SITTER, AGITATED AT TIMES. SPOUSE WAS IN AND STATES SHE IS UNABLE TO CARE FOR PT AT THIS TIME. SUPPORT OFFERED. WILL CONTINUE TO FOLLOW. PER SPOUSE, PT HAS ALWAYS DECLINED TO FILL OUT A HCP. NO COPY AT PCP OFFICE.
[2023-03-18 15:08] VITALS: BP 105/72; PULSE 84; RESP 20; TEMP 36.5
--- NOTE | 2023-03-18 16:52 | P.CNPS_ITS ---
History of Present Illness Date of Service: 03/18/2023 Chief Complaint: Copd ex Requesting physician: Natividad Frausto Discussed with referring provider: Yes Sources of Information: patient interviewed, chart reviewed and crisis/core team assessment reviewed HPI Narrative: Interim Hx: pt more agitated this morning, requiring olanzapine IM 5 mg at 5am and later at around 7am. Pt presents as delirius today- not oriented to place, poor attention, trying to get up and leave combative with staff to the point of needing one to one for safety. It does appear to be marked change in mentation from day prior. He tells this functional tester typewriters he was there at that meeting with you. not able to provide orientation to place or situation Review of Systems Review of Systems not sob-seems anxious ,intermittent agiatation Yes all other systems are reviewed and are negative [facility] Medical History COPD (chronic obstructive pulmonary disease) Pulmonary emphysema Osteopenia Hyperparathyroidism Osteoporosis Vitamin D deficiency Multinodular thyroid Surgical History Hx of prostatectomy Hx of hernia repair Diagnostics Vital Signs (24Hr): Vital Signs - 24 hr 03/17/23 18:58 03/18/23 00:00 03/18/23 03:59 Temperature 98.1 F 97.0 F 96.8 F Pulse Rate 66 119 H 66 Respiratory Rate 18 16 16 Blood Pressure 91/52 L 99/57 L 95/63 Pulse Oximetry 95 96 96 Oxygen Delivery Method Room Air Room Air Room Air 03/18/23 07:55 03/18/23 15:08 Temperature 97.5 F 97.7 F Pulse Rate 78 84 Respiratory Rate 20 20 Blood Pressure 100/55 L 105/72 Pulse Oximetry 96 Oxygen Delivery Method Room Air BMI result Body Mass Index 25.1 Labs 03/17/23 16:37 03/18/23 16:58 Labs: Laboratory Results - last 48 hr 03/17/23 16:37 WBC 12.0 H RBC 4.79 Hgb 15.6 Hct 47.1 MCV 98.3 H MCH 32.6 MCHC 33.1 RDW 12.1 Plt Count 160 MPV 11.1 Absolute Nucleated RBC 0.000 Nucleated RBC % (auto) 0.0 Vitamin B12 406 TSH 2.35 Imaging Radiology Impressions: ITS Impressions Chest X-Ray 03/15/23 04:27 IMPRESSION: Emphysema/COPD. There is no focal lung consolidation or pleural effusion. Head CT 03/16/23 15:44 IMPRESSION: Age-related involutional changes and microvascular disease. No acute hemorrhage, mass effect or shift. No acute intracranial pathology. Mental Status Exam Mental Status Exam Narrative: Appearance: wearing hospital gown, fair hygiene, in NAD Behavior: difficult to engage, restless Psychomotor: intermittent agitation Speech: mostly clear, normal rate/rhythm/volume, spontaneous TP: disorganized TC: wanting to know Mood: unable to describe Affect: irritable, combative at times SI: unable to report HI: unable to report VH/AH: none Delusions: no delusional content noted or reported. insight/judgment: impaired x 2 Memory/cog: alert, marked change from yesterday, today not oriented to place or situation Medications Medications Current Medications Acetaminophen (Acetaminophen 325 Mg Tablet) 650 mg PO Q6H PRN PRN Reason: Pain, Mild (Pain Scale 1-3) Al Hydroxide/Mg Hydroxide (Magnesium Hydrox/Alum Hydrox 30 Ml Oral.Susp) 30 ml PO Q4H PRN PRN Reason: Heartburn/Nausea Albuterol Sulfate (Albuterol Sulfate 90 Mcg 8 Gm Inhaler) 1 puff INHALE RQ4H PRN PRN Reason: sob Enoxaparin Sodium (Enoxaparin Sodium 40 Mg/0.4 Ml Syringe) 40 mg SUBCUT Q24H [facility] Last Admin: 03/18/23 09:38 Dose: Not Given Fluticasone/Vilanterol (Fluticasone/Vilanterol 200/25 Blst.W.Dev) 1 puff INHALE RDAILY [facility] Last Admin: 03/18/23 07:36 Dose: Not Given Melatonin (Melatonin 3 Mg Tablet) 6 mg PO BEDTIME PRN PRN Reason: Insomnia Ondansetron HCl (Ondansetron Hcl 4 Mg/2 Ml Vial) 4 mg IVPUSH Q8H PRN PRN Reason: Nausea and Vomiting Quetiapine Fumarate (Quetiapine Fumarate 25 Mg Tablet) 25 mg PO DAILY [facility] Last Admin: 03/18/23 09:37 Dose: Not Given Quetiapine Fumarate (Quetiapine Fumarate 50 Mg Tablet) 50 mg PO BEDTIME [facility] Last Admin: 09/20/23 20:48 Dose: 50 mg Sodium Chloride (0.9 % Sodium Chloride Flush 3 Ml Syringe) 3 ml IVFLUSH QSHIFT [facility] Last Admin: 03/18/23 15:34 Dose: Not Given Allergies Allergies Allergy/AdvReac Type Severity Reaction Status Date / Time No Known Allergies Allergy Mild NONE Verified 02/02/23 13:32 cats dogs ragweed dust pollen Allergy Unknown Unknown Uncoded 02/02/23 13:32 Assessment & Plan Assessment & Plan (1) Cognitive impairment: Status: Acute Code(s): R41.89 - Other symptoms and signs involving cognitive functions and awareness Plan Pt currently presents with fairly intact attention, does know this is the hospital and has some vague idea that reason for hospitalization is due to changes he did to nebulizer at home and SOB. However, his o2sat in ED on room air 97%. He does not present as particularly delirius at this time but I do suspect underlying dementia. reports at times he gets comfused and more combative in evening and she states she usually would leave the house to stay with her daughter. This is concerning as pt appears to have dementia and not safe to be on his own. reports he has not been formally dx with dementia. PLAN 03/18- pt presenting as delirious marked change from yesterday. Today pt presents with poor attention, not oriented to place, combative trying to leave the room. Medical work up to consider- repeat CMP, UA has not been able to be collected, he does have elevated WBC- although stable elevated, not trending up or down. He also used to be on xanax 0.5mg po QID which was abruptly stop- yesterday both pt and report he was not taking more than one but unclear how reliable is this statement. Suspect less likely benzo withdrawal as we would have seen it several days prior. But can consider doing short term clonazepam taper 0.5mg po BID x 3- 4 doses and stop. CAn increase seroquel 50mg po BID. WIll monitor daily. Total time managing care of this patient today ____ minutes.
[2023-03-18 17:18] LABS: Alanine Aminotransferase 25 U/L (0-40); Albumin Level 3.7 g/dL (3.5-5.0); Alkaline Phosphatase 85 U/L (39-117); Anion Gap 17 (12-20); Aspartate Amino Transferase 42 U/L (5-37); Bilirubin Total 1.6 mg/dL (0.0-1.0); Blood Urea Nitrogen 34 mg/dL (9-16); Calcium 8.9 mg/dL (8.4-10.2); Carbon Dioxide 26 mmol/L (22-29); Chloride 104 mmol/L (96-108); Creatinine Clr Calc Pharmacy 41.2; Estimated Glomerular Filt Rate 46; Glucose Random 122 mg/dL (60-115); Potassium 4.6 mmol/L (3.3-5.1); Sodium 142 mmol/L (135-145); Total Protein 6.6 g/dL (6.5-8.0)
--- NOTE | 2023-03-18 18:06 | PC.NURSE ---
Pt refusing oral meds, MD and Psych provider notified.
[2023-03-18] MEDS: 0.9 % Sodium Chloride Flush 3 ML SYRINGE IVFLUSH (19:39)
[2023-03-18 19:44] VITALS: BP 109/69; PULSE 92; RESP 20; TEMP 36.7
[2023-03-18] MEDS: QUEtiapine Fumarate 50 MG TABLET PO ×2 (20:37)
[2023-03-19] VITALS: BP 135/66; PULSE 98; RESP 20; TEMP 36.6; O2SAT 93
[2023-03-19] MEDS: LORazepam 2 MG/ML VIAL 1 MG IVPUSH (00:11)
[2023-03-19 08:00] VITALS: BP 102/55; PULSE 73; RESP 18; TEMP 36.7; O2SAT 94
[2023-03-19] MEDS: QUEtiapine Fumarate 50 MG TABLET PO ×3 (09:11→21:22)
[2023-03-19] MEDS: Enoxaparin Sodium 40 MG/0.4 ML SYRINGE SUBCUT (09:11)
--- NOTE | 2023-03-19 09:27 | P.CDIM_ITS ---
PROVIDER RESPONSE TEXT: To clarify, the appropriate diagnosis supported by the clinical indicators: Acute renal insufficiency QUERY TEXT: PHYSICIAN'S DOCUMENTATION REQUEST Date of Query: 03/19/2023 08:18 AM EDT Patient Name: Kvng Leyva Admit Date: 03/18/2023 Dear Natividad Frausto, A review of the medical record indicates additional documentation may be needed. Please review below and update the documentation accordingly. Clinical Indicators: LABS: Bun 20 34 Cr 1.21 1.47 Gfr 51 57 Based on the above, could you clarify the appropriate diagnosis, if significant, that supports the ab ove abnormalities and additional evaluation, monitoring, and/or treatment rendered: Acute renal insufficiency Acute renal failure (injury) Other please specify Other (explain)Clinically unable to determine (explain)Thank you, Laure Veliz, CCS, CDIS Use of terms such as suspected, likely, concern for, or probable (associated with a specific diagnosi s that is being evaluated, monitored, or treated as if it exists) are acceptable and can be coded in the inpatient se tting, when documented at the time of discharge. Please use your independent medical judgment in providing your response. THIS QUERY IS PART OF THE PERMANENT MEDICAL RECORD
--- NOTE | 2023-03-19 10:38 | P.CNNE_ITS ---
History of Present Illness Data of Consult Service Date: 03/19/23 Primary Care Provider: Yamila Rivera NP HPI Reason for consult: Encephalopathy 82 years old man with chronic back pain for which he was seeing Dr. Sandoval but I am not finding any recent back imaging, taking Xanax multiple times a day many years, admitted in hospital for worsening of COPD. Initially he was treated with steroids. There was no obvious sign of infection or significant metabolic abnormality at this time. He was noted to be somewhat confused and agitated especially in the evening. This consultation was requested to comment on his cognitive functioning. He has been seen by Psychiatry and has been treated with p.r.n. olanzapine. Review of Systems 2 Review of Systems: No recent cold or flu-like illness seizure or head trauma PMFSH Past Medical History Medical History COPD (chronic obstructive pulmonary disease) Pulmonary emphysema Osteopenia Hyperparathyroidism Osteoporosis Vitamin D deficiency Multinodular thyroid Family History Family History Father No problems noted. Mother No problems noted. Surgical History Surgical History Hx of prostatectomy Hx of hernia repair Social History Social History Household Members: Significant Other Household Members Other:: 1 Housing: House Do you presently have visiting nurse or other home services: No Alcohol intake: never Patient Tobacco Use Status: Former Tobacco user Smoked in Last 30 Days: No Use of substances other than those prescribed or required for medical reasons: No Currently Displaying Signs/Symptoms of Drug Intoxication Withdrawal: No Have you been hit, kicked, punched, or otherwise hurt by someone within the past year? If so, by whom?: No Do you feel safe in your current relationship?: Yes Is there a partner from a previous relationship who is making you feel unsafe now?: No Are you made to feel afraid or neglected: No Advance Directives: Yes Advance Directives on File: Yes Advance Directives Date on File: 02/28/23 Do you have thoughts of harming others: None Do you have a plan to hurt others: No Plan Recently lost weight without trying: Yes How much weight loss: 2-13 pounds Eating poorly because of decreased appetite: Yes Nutrition screen score: 4 service: No Meds Allergies Allergy/AdvReac Type Severity Reaction Status Date / Time No Known Allergies Allergy Mild NONE Verified 02/02/23 13:32 cats dogs ragweed dust pollen Allergy Unknown Unknown Uncoded 02/02/23 13:32 Active Medications: Current Medications Acetaminophen (Acetaminophen 325 Mg Tablet) 650 mg PO Q6H PRN PRN Reason: Pain, Mild (Pain Scale 1-3) Al Hydroxide/Mg Hydroxide (Magnesium Hydrox/Alum Hydrox 30 Ml Oral.Susp) 30 ml PO Q4H PRN PRN Reason: Heartburn/Nausea Albuterol Sulfate (Albuterol Sulfate 90 Mcg 8 Gm Inhaler) 1 puff INHALE RQ4H PRN PRN Reason: sob Clonazepam (Clonazepam 0.125 Mg Tab.Rapdis) 0.5 mg PO BID [facility] Last Admin: 03/19/23 09:11 Dose: 0.5 mg Enoxaparin Sodium (Enoxaparin Sodium 40 Mg/0.4 Ml Syringe) 40 mg SUBCUT Q24H [facility] Last Admin: 03/19/23 09:11 Dose: 40 mg Fluticasone/Vilanterol (Fluticasone/Vilanterol 200/25 Blst.W.Dev) 1 puff INHALE RDAILY [facility] Last Admin: 03/19/23 07:42 Dose: Not Given Melatonin (Melatonin 3 Mg Tablet) 6 mg PO BEDTIME PRN PRN Reason: Insomnia Ondansetron HCl (Ondansetron Hcl 4 Mg/2 Ml Vial) 4 mg IVPUSH Q8H PRN PRN Reason: Nausea and Vomiting Quetiapine Fumarate (Quetiapine Fumarate 50 Mg Tablet) 50 mg PO BEDTIME [facility] Last Admin: 03/18/23 20:37 Dose: 50 mg Quetiapine Fumarate (Quetiapine Fumarate 50 Mg Tablet) 50 mg PO BID [facility] Last Admin: 03/19/23 09:11 Dose: 50 mg Sodium Chloride (0.9 % Sodium Chloride Flush 3 Ml Syringe) 3 ml IVFLUSH QSHIFT [facility] Last Admin: 03/19/23 08:30 Dose: Not Given Home Medications Medication Instructions Recorded Confirmed Last Taken Type clopidogrel 75 mg tablet 75 mg PO DAILY 05/13/20 03/15/23 03/14/23 History lisinopril 20 mg tablet 20 mg PO DAILY 05/13/20 03/15/23 03/14/23 History simvastatin 20 mg tablet 20 mg PO BEDTIME 05/13/20 03/15/23 03/14/23 History aspirin 81 mg tablet,delayed 81 mg PO DAILY 08/25/22 03/15/23 03/14/23 History release albuterol sulfate 90 mcg/actuation 2 puff inhalation Q6H PRN 02/28/23 03/15/23 03/14/23 History aerosol inhaler (ProAir HFA) shortness of breath or wheezing alprazolam 0.5 mg tablet 0.5 mg PO QID PRN Anxiety 02/28/23 03/15/23 03/14/23 History ipratropium 0.5 mg-albuterol 3 mg 3 ml inhalation BID-TID PRN 02/28/23 03/15/23 03/14/23 History (2.5 mg base)/3 mL nebulization wheezing soln tiotropium bromide 2.5 2 puff inhalation DAILY COPD 02/28/23 03/15/23 03/14/23 History mcg/actuation mist for inhalation (Spiriva Respimat) Physical Exam 2 Vital Signs: Vital Signs: Last Vital Signs Temp 98.1 F 03/19/23 08:00 Pulse 73 03/19/23 08:00 Resp 18 03/19/23 08:00 BP 102/55 L 03/19/23 08:00 Pulse Ox 94 03/19/23 08:00 O2 Del Method Room Air 03/19/23 08:00 O2 Flow Rate 2.0 03/16/23 15:09 Oxygen Flow Rate 4 03/15/23 03:57 BMI result Body Mass Index 25.1 Neuro: Other: He is alert and awake nose that he is in [facility]. When I asked him how long he has been here he stated that he came here yesterday. He did not know why he was here. He was following commands. Face was symmetrical. Visual martinez are full. Deep tendon reflexes were absent with flat plantars. Results Labs 03/17/23 16:37 03/18/23 16:58 Labs: BMP 03/18/23 16:58 Sodium 142 Potassium 4.6 Chloride 104 Carbon Dioxide 26 BUN 34 H Creatinine 1.47 H Calcium 8.9 Liver Function 03/18/23 Range/Units 16:58 Total Bilirubin 1.6 H (0.0-1.0) mg/dL AST 42 H (5-37) U/L ALT 25 (0-40) U/L Alkaline Phosphatase 85 (39-117) U/L Albumin 3.7 (3.5-5.0) g/dL Moderately severe diffuse cerebral atrophy with moderately severe microvascular ischemic changes were noted. Microbiology Microbiology Results: Microbiology 03/15/23 04:07 Blood - Venous Blood Culture - Preliminary No growth after 48 hours. 03/15/23 04:07 Blood - Venous Blood Culture - Preliminary No growth after 48 hours. 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 At this stage of dementia patients are at risk for significant and behavioral symptomatology specially in a setting like a hospital and in the evening. I recommend against prescribing any habit-forming medicines, starting him on memantine 5 mg twice a day, using small dose of neuroleptics like quetiapine 25 mg or 50 mg in the evening, and proper placement as soon as possible to avoid any further complications (2) Cerebral microvascular disease: Status: Acute (3) Multifactorial dementia: Status: Acute Time Spent With Patient Time: Total time managing care of this patient today ____ minutes. Procedures Date of Service Date of Service: 03/19/23
--- NOTE | 2023-03-19 11:49 | HO.PM.IMPN ---
Subjective Subjective Date of Service: 03/19/23 Interval History: ? cognitive imairment/delirum Review of Systems similar to yesterday Physical Exam Vital Signs: Vital Signs: Last Vital Signs Temp 98.1 F 03/19/23 08:00 Pulse 73 03/19/23 08:00 Resp 18 03/19/23 08:00 BP 102/55 L 03/19/23 08:00 Pulse Ox 94 03/19/23 08:00 O2 Del Method Room Air 03/19/23 08:00 O2 Flow Rate 2.0 03/16/23 15:09 Oxygen Flow Rate 4 03/15/23 03:57 BMI result Body Mass Index 25.1 Appearance:limited exam due to patient no cooperation. cvs: rrr, [id number]. res: air entry fair . abd: soft ,nt, bs present. ext pulses present , no cyanosis . neuro: axo3 , nonfocal. Objective Data Active Medications Acetaminophen (Acetaminophen 325 Mg Tablet) 650 mg PO Q6H PRN PRN Reason: Pain, Mild (Pain Scale 1-3) Al Hydroxide/Mg Hydroxide (Magnesium Hydrox/Alum Hydrox 30 Ml Oral.Susp) 30 ml PO Q4H PRN PRN Reason: Heartburn/Nausea Albuterol Sulfate (Albuterol Sulfate 90 Mcg 8 Gm Inhaler) 1 puff INHALE RQ4H PRN PRN Reason: sob Clonazepam (Clonazepam 0.125 Mg Tab.Rapdis) 0.5 mg PO BID [facility] Last Admin: 03/19/23 09:11 Dose: 0.5 mg Documented By: SUE Enoxaparin Sodium (Enoxaparin Sodium 40 Mg/0.4 Ml Syringe) 40 mg SUBCUT Q24H [facility] Last Admin: 03/19/23 09:11 Dose: 40 mg Documented By: SUE Fluticasone/Vilanterol (Fluticasone/Vilanterol 200/25 Blst.W.Dev) 1 puff INHALE RDAILY [facility] Last Admin: 03/19/23 07:42 Dose: Not Given Documented By: MILI Non-Admin Reason: Agitation Melatonin (Melatonin 3 Mg Tablet) 6 mg PO BEDTIME PRN PRN Reason: Insomnia Memantine (Memantine Hcl 5 Mg Tablet) 5 mg PO BID [facility] Ondansetron HCl (Ondansetron Hcl 4 Mg/2 Ml Vial) 4 mg IVPUSH Q8H PRN PRN Reason: Nausea and Vomiting Quetiapine Fumarate (Quetiapine Fumarate 50 Mg Tablet) 50 mg PO BEDTIME [facility] Last Admin: 03/18/23 20:37 Dose: 50 mg Documented By: SHAJI Quetiapine Fumarate (Quetiapine Fumarate 50 Mg Tablet) 50 mg PO BID [facility] Last Admin: 03/19/23 09:11 Dose: 50 mg Documented By: SUE Sodium Chloride (0.9 % Sodium Chloride Flush 3 Ml Syringe) 3 ml IVFLUSH QSHIFT [facility] Last Admin: 03/19/23 08:30 Dose: Not Given Documented By: SUE Non-Admin Reason: IV Running Labs 03/19/23 10:34 03/19/23 10:34 Labs: Laboratory Results - last 24 hr 03/18/23 16:58 Anion Gap 17 Estim Creat Clear Calc 41.2 Estimated GFR 46 Random Glucose 122 H Calcium 8.9 Total Bilirubin 1.6 H AST 42 H ALT 25 Alkaline Phosphatase 85 Total Protein 6.6 Albumin 3.7 Assessment and Plan (1) Encephalopathy: Status: Acute Plan 82 year old male with copd here with acute exacerbation and already much improved Acute COPD exacerbation--no hypoxia, continue albuterol anxiety vs delirum vs encephalopathy as per pcp- recently taken off xanax ( which he was taking from many years) not hypoxic lft's normal,off steriods b12,tsh normal ct head [id number] involutional changes and microvascular disease. psych eval-adjusted seoquel,also recived zyprexa im BH-OT added neurology eval HTN continue home meds CAD--plavix, asa, statin HLD--statin anxiety ---Xanax dvt p: lovenox ongoing hospitlisation need-anxiety vs delirum vs encephalopathy unclear etiology -need neurology eval, psych follow up ,moniter for behavioural agaitation Time Spent With Patient Time: Total time managing care of this patient today ____ minutes. Quality Stroke Does the patient have a stroke diagnosis?: No VTE Prior VTE?: No VTE Risk Level:: Medical - moderate - high VTE Device Contraindication: Treatment Not Indicated VTE Drug Contraindication: N/A - Med Ordered
[2023-03-19] MEDS: Memantine HCl 5 MG TABLET PO ×2 (12:16→19:46)
[2023-03-19] MEDS: Lactated Ringers 1,000 ML 999 ML IV ×2 (12:20→13:32)
[2023-03-19 12:27] LABS: MANUAL DIFF FLAG NO
[2023-03-19 12:30] LABS: Basophils Absolute Auto 0.1 X10*3/uL (0.0-0.2); Basophils Percent Auto 0.5 % (0-2); Eosinophils Absolute Auto 0.3 X10*3/uL (0.0-0.4); Eosinophils Percent Auto 2.1 % (0-4); Hematocrit 44.2 % (42.0-52.0); Hemoglobin 14.7 g/dl (14.0-18.0); Imm Gran Pct Auto 0.8 % (0.0-0.4); Lymphocytes Absolute Auto 1.4 X10*3/uL (1.2-4.9); Lymphocytes Percent Auto 11.8 % (20-40); Mean Corpuscular HGB Conc 33.3 g/dl (31.0-36.0); Mean Corpuscular Hemoglobin 32.3 pg (27.0-33.0); Mean Corpuscular Volume 97.1 fL (80.0-98.0); Mean Platelet Volume 11.8 fL (9.4-12.4); Monocytes Percent Auto 8.3 % (2-11); Neutrophils Percent Auto 76.5 % (45-73); Platelet Count 143 X10*3/uL (160-400); Red Blood Count 4.55 X10*6/uL (4.60-5.80); Red Cell Distribution Width 12.2 % (11.0-16.0); White Blood Count 11.8 X10*3/uL (4.8-10.8)
[2023-03-19 12:47] LABS: Alanine Aminotransferase 21 U/L (0-40); Albumin Level 3.3 g/dL (3.5-5.0); Alkaline Phosphatase 74 U/L (39-117); Anion Gap 13 (12-20); Aspartate Amino Transferase 35 U/L (5-37); Bilirubin Total 1.2 mg/dL (0.0-1.0); Blood Urea Nitrogen 33 mg/dL (9-16); Calcium 8.5 mg/dL (8.4-10.2); Carbon Dioxide 26 mmol/L (22-29); Chloride 106 mmol/L (96-108); Creatinine Clr Calc Pharmacy 50.1; Estimated Glomerular Filt Rate 57; Glucose Random 94 mg/dL (60-115); Potassium 3.9 mmol/L (3.3-5.1); Sodium 141 mmol/L (135-145); Total Protein 5.8 g/dL (6.5-8.0)
--- NOTE | 2023-03-19 14:24 | MHC.CM.PN ---
EMR REVIEWED AND PER MD ROUNDS NOT MEDICALLY CLEARED FOR DC. PT ABLE TO NAME HIS HCP APPROPRIATELY INCLUDING ADDRESSES, CALM AND ALERT AT THE TIME OF THIS WRITING. CM WILL CONTINUE TO FOLLOW FOR ANY CHANGES IN DC PLAN/NEEDS.
[2023-03-19 16:00] VITALS: BP 129/81; PULSE 84; RESP 20; TEMP 36.6; O2SAT 96
--- NOTE | 2023-03-19 16:26 | PC.NURSE ---
Unable to obtain urine, patient won't allow collection r/t confusion combativness.
[2023-03-19 18:53] VITALS: BP 130/78; PULSE 84; RESP 20; TEMP 37; O2SAT 95
[2023-03-19 19:10] LABS: Appearance Urine Clear; Color Urine Yellow; Glucose Urine UA Negative (Negative); Leukocyte Esterase Urine Negative (Negative); Nitrite Urine Negative (Negative); PH 5.5 (5.0-9.0); Specific Gravity - Urine 1.015 (1.005-1.025); Urine Blood Negative (Negative); Urine Ketones Negative (Negative); Urine Protein Negative (Neg-Trace)
[2023-03-19] MEDS: 0.9 % Sodium Chloride Flush 3 ML SYRINGE IVFLUSH (19:46)
[2023-03-19 23:34] VITALS: BP 128/74; PULSE 76; RESP 18; TEMP 36.3; O2SAT 98
[2023-03-19] MEDS: OLANZapine 10 MG VIAL 5 MG IM (23:48)
[2023-03-20] MEDS: LORazepam 2 MG/ML VIAL 1 MG IVPUSH (00:30)
[2023-03-20] MEDS: Haloperidol Lactate 5 MG/ML VIAL IM (01:19)
--- NOTE | 2023-03-20 01:24 | PC.NURSE ---
Addendum entered by Renuka Abbott RN 03/20/23 06:31: at 0500. Pt in room 351, has taken all three meds that Dr. Ingram ordered for him (Zyprexa, Ativan, Haldol). None of the three meds were effective. Pt continue to try to get out of bed and was uncooperative and combative. Pt behavior started after 7pm up until after 0500. Pt did not have a sitter. It has taken 1 to 2 sometimes 3 nurses to watch him from 7pm until after 0500. during that time Pt did not sleep, he continually tried to get out of bed . Pt was experiencing tachycardia and rapid breathing from constantly trying to get out of bed. I asked Dr. Ingram could he please come and see PT. Dr. Ingram was notified of patient status and replied yes. Dr. Ingram assessed Pt and ordered 2mg Ativan IV push. Pt was given Ativan, med was effective. Pt is allowed to sleep. Addendum entered by Renuka Abbott RN 03/20/23 02:12: late entry, at 2355, Pt in room 351 has an urge to urinate but without success. Pt tried several times but still no success. [employer]ERK did a bladder scan on PT and 530 ml of urine was scanned. Dr. Ingram was notified. Dr. Ingram ordered a straight cath. Pt attempted another time to urinate was able to void 400ml. Original Note: Pt in room 351 is had a sitter, 11pm sitter was took out. Pt is disoriented, restless, and continually trying to get out of bed. Pt says that he has to go home, he needs to go and get food. Pt will not stay in bed. Pt doesn't know where he is. Dr. Ingram was notified. Dr. Ingram ordered Zyprexa 0.5mg. Pt was given Zyprexa. Pt is still trying to get out of bed, fighting, kicking, zyprexa isn't working. Dr. Ingram was notified. Dr. Ingram ordered 1 mg IM Ativan. Ativan was given to PT. Pt is still not cooperating, still trying to get out of bed. Ativan isn't working. Dr. Ingram was notified. Dr. Ingram put in an order for 5 mg IM haldol. Pt was given haldol, PT is resting but occasionally but still trying to get out of bed at times.
[2023-03-20 03:52] VITALS: BP 136/73; PULSE 107; RESP 20; TEMP 36.3; O2SAT 95
[2023-03-20] MEDS: LORazepam 2 MG/ML VIAL IVPUSH (05:21)
[2023-03-20 07:03] VITALS: BP 132/78; PULSE 81; RESP 18; TEMP 36.7; O2SAT 98
--- NOTE | 2023-03-20 08:44 | PC.NURSE ---
sitter at bedside pt sleeping . per nursing report from off going shift pt was agitated and combative all night requiring multiple PRN medications see MAR . will allow pt to rest at this time
[2023-03-20] MEDS: Enoxaparin Sodium 40 MG/0.4 ML SYRINGE SUBCUT (11:23)
[2023-03-20] MEDS: Memantine HCl 5 MG TABLET PO ×2 (11:24→19:57)
[2023-03-20] MEDS: QUEtiapine Fumarate 50 MG TABLET PO ×3 (11:24→19:58)
[2023-03-20] MEDS: 0.9 % Sodium Chloride Flush 3 ML SYRINGE IVFLUSH (11:24)
--- NOTE | 2023-03-20 11:57 | HO.PM.IMPN ---
Subjective Subjective Date of Service: 03/20/23 Interval History: anxiety vs delirum Review of Systems last night recived ativan mul Physical Exam Vital Signs: Vital Signs: Last Vital Signs Temp 98.1 F 03/20/23 07:03 Pulse 81 03/20/23 07:03 Resp 18 03/20/23 07:03 BP 132/78 03/20/23 07:03 Pulse Ox 98 03/20/23 07:03 O2 Del Method Nasal Cannula 03/20/23 07:03 O2 Flow Rate 2 03/20/23 07:03 Oxygen Flow Rate 4 03/15/23 03:57 BMI result Body Mass Index 25.1 Appearance:limited exam due to patient no cooperation. cvs: rrr, [id number]. res: air entry fair . abd: soft ,nt, bs present. ext pulses present , no cyanosis . neuro: axo3 , nonfocal. Objective Data Active Medications Acetaminophen (Acetaminophen 325 Mg Tablet) 650 mg PO Q6H PRN PRN Reason: Pain, Mild (Pain Scale 1-3) Al Hydroxide/Mg Hydroxide (Magnesium Hydrox/Alum Hydrox 30 Ml Oral.Susp) 30 ml PO Q4H PRN PRN Reason: Heartburn/Nausea Albuterol Sulfate (Albuterol Sulfate 90 Mcg 8 Gm Inhaler) 1 puff INHALE RQ4H PRN PRN Reason: sob Albuterol/Ipratropium (Albuterol/Iprat 2.5/0.5mg 3 Ml Ampul.Neb) 3 ml INHALE RQ4H WHILE AWAKE PRN PRN Reason: Shortness of Breath Clonazepam (Clonazepam 0.125 Mg Tab.Rapdis) 0.5 mg PO BID [facility] Last Admin: 03/20/23 11:23 Dose: 0.5 mg Documented By: PETER Enoxaparin Sodium (Enoxaparin Sodium 40 Mg/0.4 Ml Syringe) 40 mg SUBCUT Q24H [facility] Last Admin: 03/20/23 11:23 Dose: 40 mg Documented By: PETER Fluticasone/Vilanterol (Fluticasone/Vilanterol 200/25 Blst.W.Dev) 1 puff INHALE RDAILY [facility] Last Admin: 03/20/23 07:39 Dose: Not Given Documented By: MILI Non-Admin Reason: Agitation Melatonin (Melatonin 3 Mg Tablet) 6 mg PO BEDTIME PRN PRN Reason: Insomnia Memantine (Memantine Hcl 5 Mg Tablet) 5 mg PO BID [facility] Last Admin: 03/20/23 11:24 Dose: 5 mg Documented By: PETER Ondansetron HCl (Ondansetron Hcl 4 Mg/2 Ml Vial) 4 mg IVPUSH Q8H PRN PRN Reason: Nausea and Vomiting Quetiapine Fumarate (Quetiapine Fumarate 50 Mg Tablet) 50 mg PO BEDTIME [facility] Last Admin: 03/19/23 19:46 Dose: 50 mg Documented By: ALINA Quetiapine Fumarate (Quetiapine Fumarate 50 Mg Tablet) 50 mg PO BID [facility] Last Admin: 03/20/23 11:24 Dose: 50 mg Documented By: PETER Sodium Chloride (0.9 % Sodium Chloride Flush 3 Ml Syringe) 3 ml IVFLUSH QSHIFT [facility] Last Admin: 03/20/23 11:24 Dose: 3 ml Documented By: PETER Labs 03/19/23 10:34 03/19/23 10:34 Labs: Laboratory Results - last 24 hr 03/19/23 03/19/23 10:34 18:45 MCV 97.1 MCH 32.3 MCHC 33.3 RDW 12.2 Plt Count 143 L MPV 11.8 Immature Gran % (Auto) 0.8 H Neut % (Auto) 76.5 H Lymph % (Auto) 11.8 L [place] % (Auto) 8.3 Eos % (Auto) 2.1 Baso % (Auto) 0.5 Lymph # (Auto) 1.4 [place] # (Auto) 1.0 Eos # (Auto) 0.3 Baso # (Auto) 0.1 Abs Immat Gran (auto) 0.10 H Absolute Neuts (auto) 9.0 H Absolute Nucleated RBC 0.000 Nucleated RBC % (auto) 0.0 Anion Gap 13 Estim Creat Clear Calc 50.1 Estimated GFR 57 Random Glucose 94 Calcium 8.5 Total Bilirubin 1.2 H AST 35 ALT 21 Alkaline Phosphatase 74 Total Protein 5.8 L Albumin 3.3 L Urine Color Yellow Urine Appearance Clear Urine pH 5.5 Ur Specific [place] 1.015 Urine Protein Negative Urine Glucose (UA) Negative Urine Ketones Negative Urine Blood Negative Urine Nitrite Negative Ur Leukocyte Esterase Negative Microbiology Microbiology Results: Microbiology 03/15/23 04:07 Blood Culture - Final Blood - Venous No growth after 5 days. 03/15/23 04:07 Blood Culture - Final Blood - Venous No growth after 5 days. Assessment and Plan (1) Multifactorial dementia: Status: Acute Plan 82 year old male with copd here with acute exacerbation and already much improved Acute COPD exacerbation on home oxygen 2liter - received nebs and steriods -seems improved. continue albuterol. anxiety vs delirum (possible underlying dementia ) as per pcp- recently taken off xanax ( which he was taking from many years) sats are fine ( not changed except copd on 2 liter oxygen at home) lft's normal,b12,tsh normal,ua neg ct head [id number] involutional changes and microvascular disease. Plan:off steriods,psych eval-on po seroquel ,also on clonazepam since off ativan got iv ativan last night x3 ,halodol neurology eval- moderate to severe multifactorial, degenerative + microvascular, dementia-added memantine 5 mg po bid. HTN continue home meds CAD--plavix, asa, statin HLD--statin dvt p: lovenox dispo: care team eval -for inpatient psych placement since dementia with behavioural disturbances. Time Spent With Patient Time: Total time managing care of this patient today ____ minutes. Quality Stroke Does the patient have a stroke diagnosis?: No VTE Prior VTE?: No VTE Risk Level:: Medical - moderate - high VTE Device Contraindication: Treatment Not Indicated VTE Drug Contraindication: N/A - Med Ordered
[2023-03-20 15:37] VITALS: BP 134/93; PULSE 77; RESP 17; TEMP 36.7; O2SAT 96
[2023-03-20] MEDS: Lactated Ringers 1,000 ML 80 ML IVCONT (16:28)
[2023-03-20 19:51] VITALS: BP 143/79; PULSE 104; RESP 18; TEMP 36.9; O2SAT 96
--- NOTE | 2023-03-20 22:40 | PC.NURSE ---
On routine vitals done around 1999, pt found to have O12 sats at 86-89% RA, O2 at 2L/min via NC placed , O2sats went to low 90s.
[2023-03-21] MEDS: Lactated Ringers 1,000 ML 80 ML IVCONT (04:27)
[2023-03-21 07:14] VITALS: BP 151/82; PULSE 80; RESP 18; TEMP 36.1; O2SAT 97
[2023-03-21] MEDS: Fluticasone/Vilanterol 100/25 BLST.W.DEV 1 PUFF INHALE (07:51)
[2023-03-21 07:53] VITALS: PULSE 85; RESP 18; O2SAT 98
[2023-03-21] MEDS: QUEtiapine Fumarate 50 MG TABLET PO ×3 (08:21→21:42)
[2023-03-21] MEDS: Memantine HCl 5 MG TABLET PO ×2 (08:21→21:40)
[2023-03-21] MEDS: Enoxaparin Sodium 40 MG/0.4 ML SYRINGE SUBCUT (09:34)
--- NOTE | 2023-03-21 11:13 | HO.PM.IMPN ---
Subjective Subjective Date of Service: 03/21/23 Interval History: anxiety vs delirum Review of Systems somewhat restless awake answer few question -no pain or sob Physical Exam Vital Signs: Vital Signs: Last Vital Signs Temp 97 F 03/21/23 07:14 Pulse 85 03/21/23 07:53 Resp 18 03/21/23 07:53 BP 151/82 H 03/21/23 07:14 Pulse Ox 97 03/21/23 07:14 O2 Del Method Room Air 03/21/23 07:14 O2 Flow Rate 1.0 03/20/23 19:51 Oxygen Flow Rate 4 03/15/23 03:57 BMI result Body Mass Index 25.1 Appearance:limited exam ,aox2. cvs: rrr, [id number]. res: air entry fair . abd: soft ,nt, bs present. ext pulses present , no cyanosis . neuro: axo3 , nonfocal. Objective Data Active Medications Acetaminophen (Acetaminophen 325 Mg Tablet) 650 mg PO Q6H PRN PRN Reason: Pain, Mild (Pain Scale 1-3) Al Hydroxide/Mg Hydroxide (Magnesium Hydrox/Alum Hydrox 30 Ml Oral.Susp) 30 ml PO Q4H PRN PRN Reason: Heartburn/Nausea Albuterol Sulfate (Albuterol Sulfate 90 Mcg 8 Gm Inhaler) 1 puff INHALE RQ4H PRN PRN Reason: sob Albuterol/Ipratropium (Albuterol/Iprat 2.5/0.5mg 3 Ml Ampul.Neb) 3 ml INHALE RQ4H WHILE AWAKE PRN PRN Reason: Shortness of Breath Artificial Tears (Artificial Tears 15 Ml Drops) 1 drop EYE-BOTH Q4H PRN PRN Reason: Dry Eyes Clonazepam (Clonazepam 0.125 Mg Tab.Rapdis) 0.5 mg PO BID [facility] Last Admin: 03/21/23 08:21 Dose: 0.5 mg Documented By: PETER Enoxaparin Sodium (Enoxaparin Sodium 40 Mg/0.4 Ml Syringe) 40 mg SUBCUT Q24H [facility] Last Admin: 03/21/23 09:34 Dose: 40 mg Documented By: PETER Fluticasone/Vilanterol (Fluticasone/Vilanterol 200/25 Blst.W.Dev) 1 puff INHALE RDAILY [facility] Last Admin: 03/21/23 07:54 Dose: Not Given Documented By: GIA Non-Admin Reason: Duplicate Order Fluticasone/Vilanterol (Fluticasone/Vilanterol 100/25 Blst.W.Dev) 1 puff INHALE RDAILY [facility] Last Admin: 03/21/23 07:51 Dose: 1 puff Documented By: GIA Lactated Ringer's (Lr) 1,000 mls @ 80 mls/hr IVCONT .[id number] [facility] Last Admin: 03/21/23 04:27 Dose: 80 mls/hr Documented By: BRANDYN Melatonin (Melatonin 3 Mg Tablet) 6 mg PO BEDTIME PRN PRN Reason: Insomnia Memantine (Memantine Hcl 5 Mg Tablet) 5 mg PO BID [facility] Last Admin: 03/21/23 08:21 Dose: 5 mg Documented By: PETER Ondansetron HCl (Ondansetron Hcl 4 Mg/2 Ml Vial) 4 mg IVPUSH Q8H PRN PRN Reason: Nausea and Vomiting Quetiapine Fumarate (Quetiapine Fumarate 50 Mg Tablet) 50 mg PO BEDTIME [facility] Last Admin: 03/20/23 19:58 Dose: 50 mg Documented By: BRANDYN Quetiapine Fumarate (Quetiapine Fumarate 50 Mg Tablet) 50 mg PO BID [facility] Last Admin: 03/21/23 08:21 Dose: 50 mg Documented By: PETER Sodium Chloride (0.9 % Sodium Chloride Flush 3 Ml Syringe) 3 ml IVFLUSH QSHIFT [facility] Last Admin: 03/21/23 08:22 Dose: Not Given Documented By: PETER Non-Admin Reason: IV Running Labs 03/19/23 10:34 03/19/23 10:34 Assessment and Plan (1) Multifactorial dementia: Status: Acute Plan 82 year old male with copd here with acute exacerbation and already much improved Acute COPD exacerbation on home oxygen 2liter - received nebs and steriods -seems improved. continue albuterol. anxiety vs delirum (possible underlying dementia ) as per pcp- recently taken off xanax ( which he was taking from many years) sats are fine ( not changed except copd on 2 liter oxygen at home) lft's normal,b12,tsh normal,ua neg ct head [id number] involutional changes and microvascular disease. Plan:off steriods,psych eval-on po seroquel ,also on clonazepam since off ativan got iv ativan last night x3 ,halodol neurology eval- moderate to severe multifactorial, degenerative + microvascular, dementia-continue memantine 5 mg po bid. HTN continue home meds CAD--plavix, asa, statin HLD--statin dvt p: lovenox dispo: care team eval -for inpatient jonathan psych placement since dementia with behavioural disturbances. Time Spent With Patient Time: Total time managing care of this patient today ____ minutes. Quality Stroke Does the patient have a stroke diagnosis?: No VTE Prior VTE?: No VTE Risk Level:: Medical - moderate - high VTE Device Contraindication: Treatment Not Indicated VTE Drug Contraindication: N/A - Med Ordered
[2023-03-21 15:17] VITALS: BP 124/60; PULSE 74; RESP 16; TEMP 36.6; O2SAT 95
[2023-03-21 16:00] VITALS: BP 124/60; PULSE 71; RESP 16; TEMP 526; TEMP 978.8; O2SAT 95
[2023-03-21 20:00] VITALS: BP 115/65; PULSE 81; RESP 18; TEMP 36.4; O2SAT 93
[2023-03-21] MEDS: 0.9 % Sodium Chloride Flush 3 ML SYRINGE IVFLUSH (21:43)
[2023-03-22] MEDS: Acetaminophen 325 MG TABLET 650 MG PO (00:23)
[2023-03-22 03:36] VITALS: BP 138/81; PULSE 74; RESP 19; TEMP 36.4
[2023-03-22 07:02] VITALS: BP 141/91; PULSE 74; RESP 20; TEMP 36.2; O2SAT 96
[2023-03-22 07:41] VITALS: PULSE 70; RESP 16; O2SAT 98
[2023-03-22] MEDS: Fluticasone/Vilanterol 100/25 BLST.W.DEV 1 PUFF INHALE (07:41)
[2023-03-22] MEDS: QUEtiapine Fumarate 50 MG TABLET PO ×3 (08:00→20:47)
[2023-03-22] MEDS: 0.9 % Sodium Chloride Flush 3 ML SYRINGE IVFLUSH ×3 (08:00→20:48)
[2023-03-22] MEDS: Memantine HCl 5 MG TABLET PO ×2 (08:00→20:47)
[2023-03-22 09:14] LABS: Amphetamine Screen Urine Not Detected (Not Detect); Barbiturates, Urine Not Detected (Not Detect); Benzodiazepines Screen Urine Not Detected (Not Detect); Cannabinoid Screen Urine Not Detected (Not Detect); Cocaine Screen Urine Not Detected (Not Detect); Fentanyl, urine Not Detected (Not Detect); Opiate Screen Urine Not Detected (Not Detect); Phencyclidine Screen Urine Not Detected (Not Detect)
[2023-03-22] MEDS: Enoxaparin Sodium 40 MG/0.4 ML SYRINGE SUBCUT (10:28)
--- NOTE | 2023-03-22 12:41 | P.PNIM_ITS ---
Subjective Subjective Date of Service: 03/22/23 Interval History: anxiety vs delirum Review of Systems awake ,somewhat restless answer few question -no pain or sob Physical Exam 2 Vital Signs: Vital Signs: Last Vital Signs Temp 97.2 F 03/22/23 07:02 Pulse 70 03/22/23 07:41 Resp 16 03/22/23 07:41 BP 141/91 H 03/22/23 07:02 Pulse Ox 96 03/22/23 07:02 O2 Del Method Room Air 03/22/23 07:02 O2 Flow Rate 1.0 03/20/23 19:51 Oxygen Flow Rate 4 03/15/23 03:57 BMI result Body Mass Index 25.1 Appearance:limited exam ,aox2. cvs: rrr, [id number]. res: air entry fair . abd: soft ,nt, bs present. ext pulses present , no cyanosis . neuro: axo3 , nonfocal. Objective Data Active Medications Acetaminophen (Acetaminophen 325 Mg Tablet) 650 mg PO Q6H PRN PRN Reason: Pain, Mild (Pain Scale 1-3) Last Admin: 03/22/23 00:23 Dose: 650 mg Documented By: IRVING Al Hydroxide/Mg Hydroxide (Magnesium Hydrox/Alum Hydrox 30 Ml Oral.Susp) 30 ml PO Q4H PRN PRN Reason: Heartburn/Nausea Albuterol Sulfate (Albuterol Sulfate 90 Mcg 8 Gm Inhaler) 1 puff INHALE RQ4H PRN PRN Reason: sob Albuterol/Ipratropium (Albuterol/Iprat 2.5/0.5mg 3 Ml Ampul.Neb) 3 ml INHALE RQ4H WHILE AWAKE PRN PRN Reason: Shortness of Breath Artificial Tears (Artificial Tears 15 Ml Drops) 1 drop EYE-BOTH Q4H PRN PRN Reason: Dry Eyes Clonazepam (Clonazepam 0.125 Mg Tab.Rapdis) 0.5 mg PO BID [facility] Last Admin: 03/22/23 08:00 Dose: 0.5 mg Documented By: SUE Enoxaparin Sodium (Enoxaparin Sodium 40 Mg/0.4 Ml Syringe) 40 mg SUBCUT Q24H [facility] Last Admin: 03/22/23 10:28 Dose: 40 mg Documented By: SUE Fluticasone/Vilanterol (Fluticasone/Vilanterol 100/25 Blst.W.Dev) 1 puff INHALE RDAILY [facility] Last Admin: 03/22/23 07:41 Dose: 1 puff Documented By: ERIC Melatonin (Melatonin 3 Mg Tablet) 6 mg PO BEDTIME PRN PRN Reason: Insomnia Memantine (Memantine Hcl 5 Mg Tablet) 5 mg PO BID [facility] Last Admin: 03/22/23 08:00 Dose: 5 mg Documented By: SUE Ondansetron HCl (Ondansetron Hcl 4 Mg/2 Ml Vial) 4 mg IVPUSH Q8H PRN PRN Reason: Nausea and Vomiting Quetiapine Fumarate (Quetiapine Fumarate 50 Mg Tablet) 50 mg PO BEDTIME [facility] Last Admin: 03/21/23 21:41 Dose: 50 mg Documented By: IRVING Quetiapine Fumarate (Quetiapine Fumarate 50 Mg Tablet) 50 mg PO BID [facility] Last Admin: 03/22/23 08:00 Dose: 50 mg Documented By: SUE Sodium Chloride (0.9 % Sodium Chloride Flush 3 Ml Syringe) 3 ml IVFLUSH QSHIFT [facility] Last Admin: 03/22/23 08:00 Dose: 3 ml Documented By: SUE Labs 03/19/23 10:34 03/19/23 10:34 Labs: Laboratory Results - last 24 hr 03/22/23 08:30 Urine Opiates Screen Not Detected Urine Fentanyl Screen Not Detected Ur Barbiturates Screen Not Detected Ur Phencyclidine Scrn Not Detected Ur Amphetamines Screen Not Detected U Benzodiazepines Scrn Not Detected Urine Cocaine Screen Not Detected U Marijuana (THC) Screen Not Detected Assessment and Plan (1) Multifactorial dementia: Status: Acute Plan 82 year old male with copd here with acute exacerbation and already much improved Acute COPD exacerbation on home oxygen 2liter - received nebs and steriods -seems improved. continue albuterol. anxiety vs delirum (possible underlying dementia ) as per pcp- recently taken off xanax ( which he was taking from many years) sats are fine ( not changed except copd on 2 liter oxygen at home) lft's normal,b12,tsh normal,ua neg urine drug screen added ct head ppt-[id number] involutional changes and microvascular disease. Plan:off steriods,psych eval-on po seroquel ,also on clonazepam since off ativan got iv ativan last night x3 ,halodol neurology eval- moderate to severe multifactorial, degenerative + microvascular, dementia-continue memantine 5 mg po bid. HTN continue home meds CAD--plavix, asa, statin HLD--statin dvt p: lovenox dispo: care team eval -for inpatient [facility] placement since dementia with behavioural disturbances. Time Spent With Patient Time: Total time managing care of this patient today ____ minutes. Quality Stroke Does the patient have a stroke diagnosis?: No VTE Prior VTE?: No VTE Risk Level:: Medical - moderate - high VTE Device Contraindication: Treatment Not Indicated VTE Drug Contraindication: N/A - Med Ordered
[2023-03-22 13:19] VITALS: O2SAT 94
--- NOTE | 2023-03-22 14:44 | P.CNPS_ITS ---
History of Present Illness Date of Service: 03/22/2023 Chief Complaint: Copd ex Reason for Consult: f/u combative behaviors Requesting physician: Natividad Frausto Discussed with referring provider: Yes Sources of Information: patient interviewed, chart reviewed and crisis/core team assessment reviewed HPI Narrative: Interim Hx: pt presents calmer today. He slept most of the night and has not required IM medications overnight. He is oriented to place, not so much to situation. He reports is March. Review of Systems Review of Systems awake ,somewhat restless answer few question -no pain or sob Yes all other systems are reviewed and are negative [facility] Medical History COPD (chronic obstructive pulmonary disease) Pulmonary emphysema Osteopenia Hyperparathyroidism Osteoporosis Vitamin D deficiency Multinodular thyroid Surgical History Hx of prostatectomy Hx of hernia repair Diagnostics Vital Signs (24Hr): Vital Signs - 24 hr 03/21/23 15:17 03/21/23 16:00 03/21/23 20:00 Temperature 97.8 F 978.8 F H 97.6 F Pulse Rate 74 71 81 Respiratory Rate 16 16 18 Blood Pressure 124/60 124/60 115/65 Pulse Oximetry 95 95 93 Oxygen Delivery Method Room Air Room Air Room Air 03/22/23 03:36 03/22/23 07:02 03/22/23 07:41 Temperature 97.5 F 97.2 F Pulse Rate 74 74 70 Respiratory Rate 19 20 16 Blood Pressure 138/81 141/91 H Pulse Oximetry 96 Oxygen Delivery Method Room Air 03/22/23 13:19 Temperature Pulse Rate Respiratory Rate Blood Pressure Pulse Oximetry 94 Oxygen Delivery Method BMI result Body Mass Index 25.1 Labs 03/19/23 10:34 03/19/23 10:34 Labs: Laboratory Results - last 48 hr 03/22/23 08:30 Urine Opiates Screen Not Detected Urine Fentanyl Screen Not Detected Ur Barbiturates Screen Not Detected Ur Phencyclidine Scrn Not Detected Ur Amphetamines Screen Not Detected U Benzodiazepines Scrn Not Detected Urine Cocaine Screen Not Detected U Marijuana (THC) Screen Not Detected Imaging Radiology Impressions: ITS Impressions Chest X-Ray 03/15/23 04:27 IMPRESSION: Emphysema/COPD. There is no focal lung consolidation or pleural effusion. Head CT 03/16/23 15:44 IMPRESSION: Age-related involutional changes and microvascular disease. No acute hemorrhage, mass effect or shift. No acute intracranial pathology. Mental Status Exam Mental Status Exam Narrative: Appearance: wearing hospital gown, fair hygiene, in NAD Behavior: difficult to engage, restless Psychomotor: intermittent agitation Speech: mostly clear, normal rate/rhythm/volume, spontaneous TP: disorganized TC: wanting to know Mood: unable to describe Affect: irritable, combative at times SI: unable to report HI: unable to report VH/AH: none Delusions: no delusional content noted or reported. insight/judgment: impaired x 2 Memory/cog: alert, oriented to place, not so much situation. attention not as impaired. less s/s of delirum. Medications Medications Current Medications Acetaminophen (Acetaminophen 325 Mg Tablet) 650 mg PO Q6H PRN PRN Reason: Pain, Mild (Pain Scale 1-3) Last Admin: 03/22/23 00:23 Dose: 650 mg Al Hydroxide/Mg Hydroxide (Magnesium Hydrox/Alum Hydrox 30 Ml Oral.Susp) 30 ml PO Q4H PRN PRN Reason: Heartburn/Nausea Albuterol Sulfate (Albuterol Sulfate 90 Mcg 8 Gm Inhaler) 1 puff INHALE RQ4H PRN PRN Reason: sob Albuterol/Ipratropium (Albuterol/Iprat 2.5/0.5mg 3 Ml Ampul.Neb) 3 ml INHALE RQ4H WHILE AWAKE PRN PRN Reason: Shortness of Breath Artificial Tears (Artificial Tears 15 Ml Drops) 1 drop EYE-BOTH Q4H PRN PRN Reason: Dry Eyes Clonazepam (Clonazepam 0.125 Mg Tab.Rapdis) 0.5 mg PO BID [facility] Last Admin: 03/22/23 08:00 Dose: 0.5 mg Enoxaparin Sodium (Enoxaparin Sodium 40 Mg/0.4 Ml Syringe) 40 mg SUBCUT Q24H [facility] Last Admin: 03/22/23 10:28 Dose: 40 mg Fluticasone/Vilanterol (Fluticasone/Vilanterol 100/25 Blst.W.Dev) 1 puff INHALE RDAILY [facility] Last Admin: 03/22/23 07:41 Dose: 1 puff Melatonin (Melatonin 3 Mg Tablet) 6 mg PO BEDTIME PRN PRN Reason: Insomnia Memantine (Memantine Hcl 5 Mg Tablet) 5 mg PO BID [facility] Last Admin: 03/22/23 08:00 Dose: 5 mg Ondansetron HCl (Ondansetron Hcl 4 Mg/2 Ml Vial) 4 mg IVPUSH Q8H PRN PRN Reason: Nausea and Vomiting Quetiapine Fumarate (Quetiapine Fumarate 50 Mg Tablet) 50 mg PO BEDTIME [facility] Last Admin: 03/21/23 21:41 Dose: 50 mg Quetiapine Fumarate (Quetiapine Fumarate 50 Mg Tablet) 50 mg PO BID [facility] Last Admin: 03/22/23 08:00 Dose: 50 mg Sodium Chloride (0.9 % Sodium Chloride Flush 3 Ml Syringe) 3 ml IVFLUSH QSHIFT [facility] Last Admin: 03/22/23 08:00 Dose: 3 ml Allergies Allergies Allergy/AdvReac Type Severity Reaction Status Date / Time No Known Allergies Allergy Mild NONE Verified 02/02/23 13:32 cats dogs ragweed dust pollen Allergy Unknown Unknown Uncoded 02/02/23 13:32 Assessment & Plan Assessment & Plan (1) Multifactorial dementia: Status: Acute Code(s): F03.90 - Unspecified dementia, unspecified severity, without behavioral disturbance, psychotic disturbance, mood disturbance, and anxiety Plan 82 year old male with copd here with acute exacerbation and already much improved Acute COPD exacerbation on home oxygen 2liter - received nebs and steriods -seems improved. continue albuterol. anxiety vs delirum (possible underlying dementia ) 03/22 pt appears with improved attention. No overt s/s of delirium. He is currently on clonazepam as benzo taper given that he used to be for several years on xanax. Will continue benzo taper with clonazepam but aim to d/c pt without any benzo prior to discharge. He continued to await for bed on [facility]. Total time managing care of this patient today ____ minutes.
--- NOTE | 2023-03-22 14:47 | MHC.CM.PN ---
per rounds md is waiting for psychs documentation md feels pt needs a psych admit
[2023-03-22 15:38] VITALS: BP 96/51; PULSE 68; RESP 18; TEMP 36.1; O2SAT 96
[2023-03-22 23:48] VITALS: BP 130/71; PULSE 70; RESP 17; TEMP 36.4; O2SAT 96
[2023-03-23 07:58] VITALS: BP 119/67; PULSE 70; RESP 18; TEMP 36.3; O2SAT 94
[2023-03-23] MEDS: Memantine HCl 5 MG TABLET PO (08:05)
[2023-03-23] MEDS: QUEtiapine Fumarate 50 MG TABLET PO (08:05)
[2023-03-23] MEDS: 0.9 % Sodium Chloride Flush 3 ML SYRINGE IVFLUSH (08:05)
[2023-03-23] MEDS: Fluticasone/Vilanterol 100/25 BLST.W.DEV 1 PUFF INHALE (08:18)
[2023-03-23 08:20] VITALS: PULSE 81; RESP 18; O2SAT 91
--- NOTE | 2023-03-23 09:38 | HO.PM.IMPN ---
Subjective Subjective Date of Service: 03/23/23 Interval History: f/u copd, delirium interval history: doing better, no confusion, Physical Exam Vital Signs: Vital Signs: Last Vital Signs Temp 97.3 F 03/23/23 07:58 Pulse 81 03/23/23 08:20 Resp 18 03/23/23 08:20 BP 119/67 03/23/23 07:58 Pulse Ox 94 03/23/23 07:58 O2 Del Method Room Air 03/23/23 07:58 O2 Flow Rate 1.0 03/20/23 19:51 Oxygen Flow Rate 4 03/15/23 03:57 BMI result Body Mass Index 25.1 Const: Other: General: AO X 3, no acute distress Resp: CTA bilateral CVS: S1,S2,RRR GI: +BS, NT, no distention Skin: No rash Neuro: motor grossly intact Psych: appropriate affect Objective Data Active Medications Acetaminophen (Acetaminophen 325 Mg Tablet) 650 mg PO Q6H PRN PRN Reason: Pain, Mild (Pain Scale 1-3) Last Admin: 03/22/23 00:23 Dose: 650 mg Documented By: IRVING Al Hydroxide/Mg Hydroxide (Magnesium Hydrox/Alum Hydrox 30 Ml Oral.Susp) 30 ml PO Q4H PRN PRN Reason: Heartburn/Nausea Albuterol Sulfate (Albuterol Sulfate 90 Mcg 8 Gm Inhaler) 1 puff INHALE RQ4H PRN PRN Reason: sob Albuterol/Ipratropium (Albuterol/Iprat 2.5/0.5mg 3 Ml Ampul.Neb) 3 ml INHALE RQ4H WHILE AWAKE PRN PRN Reason: Shortness of Breath Artificial Tears (Artificial Tears 15 Ml Drops) 1 drop EYE-BOTH Q4H PRN PRN Reason: Dry Eyes Clonazepam (Clonazepam 0.125 Mg Tab.Rapdis) 0.5 mg PO BID [facility] Last Admin: 03/23/23 08:05 Dose: 0.5 mg Documented By: SUE Enoxaparin Sodium (Enoxaparin Sodium 40 Mg/0.4 Ml Syringe) 40 mg SUBCUT Q24H [facility] Last Admin: 03/22/23 10:28 Dose: 40 mg Documented By: SUE Fluticasone/Vilanterol (Fluticasone/Vilanterol 100/25 Blst.W.Dev) 1 puff INHALE RDAILY [facility] Last Admin: 03/23/23 08:18 Dose: 1 puff Documented By: MILI Melatonin (Melatonin 3 Mg Tablet) 6 mg PO BEDTIME PRN PRN Reason: Insomnia Memantine (Memantine Hcl 5 Mg Tablet) 5 mg PO BID [facility] Last Admin: 03/23/23 08:05 Dose: 5 mg Documented By: SUE Ondansetron HCl (Ondansetron Hcl 4 Mg/2 Ml Vial) 4 mg IVPUSH Q8H PRN PRN Reason: Nausea and Vomiting Quetiapine Fumarate (Quetiapine Fumarate 50 Mg Tablet) 50 mg PO BEDTIME [facility] Last Admin: 03/22/23 20:47 Dose: 50 mg Documented By: IRVING Quetiapine Fumarate (Quetiapine Fumarate 50 Mg Tablet) 50 mg PO BID [facility] Last Admin: 03/23/23 08:05 Dose: 50 mg Documented By: SUE Sodium Chloride (0.9 % Sodium Chloride Flush 3 Ml Syringe) 3 ml IVFLUSH QSHIFT [facility] Last Admin: 03/23/23 08:05 Dose: 3 ml Documented By: SUE Labs 03/19/23 10:34 03/19/23 10:34 Assessment and Plan (1) Multifactorial dementia: Status: Acute Plan 82 year old male with copd here with acute exacerbation and already much improved Acute COPD exacerbation on chronic resp failure on 2 liters, exacerbation resolved. anxiety vs delirum (possible underlying dementia )--Back to baseline, benzo for anxiety HTN continue home meds CAD--plavix, asa, statin HLD--statin dvt p: lovenox dispo: PT recommends STR, ready to go pending bed availability Time Spent With Patient Time: Total time managing care of this patient today ____ minutes. Quality Stroke Does the patient have a stroke diagnosis?: No VTE Prior VTE?: No VTE Risk Level:: Medical - moderate - high VTE Device Contraindication: Treatment Not Indicated VTE Drug Contraindication: N/A - Med Ordered
[2023-03-23] MEDS: Enoxaparin Sodium 40 MG/0.4 ML SYRINGE SUBCUT (10:30)
--- NOTE | 2023-03-23 11:56 | PM.DS ---
DS: Providers Provider Date of Service: 03/23/23 Date of admission: 03/18/23 14:06 Primary care physician: Yamila Rivera NP Consults: 03/16/23 11:36 Consult to Psychiatry Routine Consulting Provider: Psych Covering Reason for consultation: dementia with behavioural disturbance,? steriod use contributin Has provider been notified: No 03/16/23 17:54 Consult for Sitter Routine Reason for consultation: behavioural disturbance Has provider been notified: No 03/18/23 14:21 Consult to Neurology Routine Consulting Provider: [facility] Reason for consultation: encephalopathy unlcear etiology 03/20/23 11:43 Consult to Care Team Stat Comment: Reason for consultation: need inpatient psych Has provider been notified: No DS: Diagnosis Discharge Diagnosis (1) Multifactorial dementia: Status: Acute DS: Summary Hospital Course Hospital Course: Chief Complaint: Shortness of breath 82 year old man presenting with copd on 2 liters at home, he was fine until 5 am this morning when he woke up sob and coudn't breath, he denies cough or fever, no chest pain. Work up in ED include unremarkable xray of chest, negative covid and influenza. Given Neb and IV steroid and he's feeling much better, in fact he has taken off his O2 and is sating 97 on room air. He will be observed overnight. Hospital course: Patient initially presented with shortness of breath and was treated for exacerbation of copd given IV solumedrol and bronchodilatros by Neb with rapid improvement, however he developped agiation with combativeness that required Olanzapine and Haldol for behavor control. Although not formerly diagnosed, this patient likely has underlying dementia. Psych was consulted to help with med adjustment and management . Overall he is doing better and with think he will benefit from further observation and med adjustment in [facility] and is therefore been admitted to [facility] before going home. Time Spent with Patient Time attestation: Total time managing care of this patient today ____ minutes. Discharge coordination time: Greater than 30 minutes Quality: Safe Use of Opioids Does Pt have an Active Cancer Diagnosis on the Problem List?: No Quality: Stroke Does the patient have a stroke diagnosis?: No Physical Exam Vital Signs: Vital Signs: Last Vital Signs Temp 97.3 F 03/23/23 07:58 Pulse 81 03/23/23 08:20 Resp 18 03/23/23 08:20 BP 119/67 03/23/23 07:58 Pulse Ox 94 03/23/23 07:58 O2 Del Method Room Air 03/23/23 07:58 O2 Flow Rate 1.0 03/20/23 19:51 Oxygen Flow Rate 4 03/15/23 03:57 BMI result Body Mass Index 25.1 Discharge Plan Discharge Anticipated Discharge Date/Time: 03/23/23 12:18 Patient Disposition: Xfer Psychiatric Hosp Discharge Diagnosis: COPD exacerbation Referrals: Yamila Rivera NP [Primary Care Provider] - 1 Week Discharge Medications: Continued alprazolam 0.5 mg tablet 0.5 mg PO QID PRN (Reason: Anxiety) Spiriva Respimat 2.5 mcg/actuation mist 2 puff inhalation DAILY ipratropium-albuterol 0.5 mg-3 mg(2.5 mg base)/3 mL solution for nebulization 3 ml inhalation BID-TID PRN (Reason: wheezing) Rx Instructions: Use TID albuterol sulfate [ProAir HFA] 90 mcg/actuation HFA aerosol inhaler 2 puff inhalation Q6H PRN (Reason: shortness of breath or wheezing) simvastatin 20 mg tablet 20 mg PO BEDTIME lisinopril 20 mg tablet 20 mg PO DAILY clopidogrel 75 mg tablet 75 mg PO DAILY aspirin 81 mg tablet,delayed release (DR/EC) 81 mg PO DAILY Diet: Advance to usual diet Activity on Discharge: As tolerated Stand Alone Forms: Patient Portal Discharge page Care Plan Goals: Patient was admitted for COPD exacerbation started on nebs, steroids seems to be improved significantly, going home with p.o. steroids. Patient is to follow-up with PCP outpatient. Health Concerns: As above. Plan of Treatment: As above. Assessment: As above.
--- NOTE | 2023-03-23 12:41 | MHC.CM.PN ---
pt will be transferred to [address]
--- NOTE | 2023-03-23 13:07 | PC.NURSE ---
Plan to transfer patient to [facility], updated Med List attached to discharge paperwork.
== END 2023-03-23 13:39 | DRG 191 ==
LOC: HO.ED 06:21 → HO.EDOVER 10:40 → HO.S3 16:37
PROVIDERS: Internal Medicine; Social Worker; Admitting Provider Internal Medicine; Emergency Provider Emergency Medicine Emergency Medical Services; PCP Nurse Practitioner Family; Visit Provider Internal Medicine
DX: J43.9 Emphysema, unspecified (principal); F03.918 Unspecified dementia, unspecified severity, with other behavioral disturbance; F05 Delirium due to known physiological condition; J96.10 Chronic respiratory failure, unspecified whether with hypoxia or hypercapnia; G93.40 Encephalopathy, unspecified; I25.10 Atherosclerotic heart disease of native coronary artery without angina pectoris; E78.5 Hyperlipidemia, unspecified; N28.9 Disorder of kidney and ureter, unspecified; M54.9 Dorsalgia, unspecified; G89.29 Other chronic pain; F41.9 Anxiety disorder, unspecified; Z23 Encounter for immunization; Z99.81 Dependence on supplemental oxygen; Z87.891 Personal history of nicotine dependence; Z79.02 Long term (current) use of antithrombotics/antiplatelets; Z79.82 Long term (current) use of aspirin; Z79.899 Other long term (current) drug therapy
CPT/HCPCS: 36415; 70450; 71045; 80048; 80053; 80307; 81003; 82607; 82803; 83605; 84443; 85025; 85027; 85610; 85730; 87040; 87502; 87635; 93005; 94640; 97162; 99221; 99285; J1650; J2060; J2930; S9485

== ENCOUNTER → 2023-03-15 04:32 | Outpatient (BNV) | payer MEDICARE, SELFPAY | PROVIDERS: Emergency Provider Emergency Medicine Emergency Medical Services; PCP Nurse Practitioner Family; Visit Provider Internal Medicine | DX: F03.90 Unspecified dementia, unspecified severity, without behavioral disturbance, psychotic disturbance, mood disturbance, and anxiety (principal) | CPT/HCPCS: 99222; 99231; 99232; 99239 ==

== ENCOUNTER → 2023-03-18 14:06 | Outpatient (BNV) | payer MEDICARE, SELFPAY | PROVIDERS: Admitting Provider Internal Medicine; Emergency Provider Emergency Medicine Emergency Medical Services; PCP Nurse Practitioner Family; Visit Provider Social Worker | DX: F03.90 Unspecified dementia, unspecified severity, without behavioral disturbance, psychotic disturbance, mood disturbance, and anxiety (principal) | CPT/HCPCS: 99232; 99233 ==

== ENCOUNTER 2023-03-23 12:19 | Inpatient (IN) | payer MEDICARE, SELFPAY ==
[2023-03-23 14:52] VITALS: BP 145/80; PULSE 90; RESP 18; TEMP 37.3; O2SAT 96
[2023-03-23 15:09] VITALS: BMI 24.5
--- NOTE | 2023-03-23 17:34 | PC.ADMIT ---
Patient transferred to unit from via at 1420. Admission to S3 due to COPD exacerbation. Following admission Psych was consulted d/t management of combative behaviors and agitation. Patient admitted as CV with diagnosis of Generalized Anxiety disorder and Unspecified dementia. Upon admission patient vitals were taken, patient was weighed and skin check done. Patient observed to have rash to back/buttocks/chest which both patient and stated had been there for years. No pain or itching noted. Vital signs were stable . Patient oriented to unit and was calm and cooperative during admission process. Good eye contact made. Speech clear. Patient alert and oriented x4. Observed in the dining area with peers. Flu shot administered. No behavioral issues noted at this time. Patient reports safe on unit..
[2023-03-23 18:00] VITALS: BP 122/67; PULSE 85; RESP 16; TEMP 37.4; O2SAT 95
--- NOTE | 2023-03-23 18:53 | PC.NURSE ---
Patient reported at approximately 1820 that he was SOB while walking with walker. Patient uses O2 at home however was not using O2 when transferred to S1. O2 was started on patient at 2L. Dr. Griffith notified. Put in order for O2 at 2L. O2 sats were at 74-83. Came up to 97 with O2. Patient transported to room with W/C. Replaced O2 tank with concenrtrator. Resting comfortably in bed at this time. [employer] notifed. 1:1 with patient.
[2023-03-23] MEDS: Atorvastatin Calcium 10 MG TABLET PO (20:30)
[2023-03-23] MEDS: QUEtiapine Fumarate 50 MG TABLET PO ×2 (20:30→20:34)
[2023-03-23] MEDS: Memantine HCl 5 MG TABLET PO (20:30)
[2023-03-24 08:00] VITALS: BP 174/83; PULSE 86; RESP 18; TEMP 36.2; O2SAT 95
[2023-03-24] MEDS: Fluticasone/Vilanterol 100/25 BLST.W.DEV 1 PUFF INHALE (08:20)
[2023-03-24] MEDS: QUEtiapine Fumarate 50 MG TABLET PO ×3 (08:24→21:30)
[2023-03-24] MEDS: lisinopriL 20 MG TABLET PO (08:24)
[2023-03-24] MEDS: Aspirin Enteric Coated 81 MG TABLET.DR PO (08:24)
[2023-03-24] MEDS: Memantine HCl 5 MG TABLET PO ×2 (08:24→21:30)
[2023-03-24] MEDS: Clopidogrel Bisulfate 75 MG TABLET PO (08:24)
[2023-03-24 08:49] LABS: Alanine Aminotransferase 26 U/L (0-40); Albumin Level 3.2 g/dL (3.5-5.0); Alkaline Phosphatase 98 U/L (39-117); Anion Gap 10 (12-20); Aspartate Amino Transferase 32 U/L (5-37); Bilirubin Total 0.6 mg/dL (0.0-1.0); Blood Urea Nitrogen 24 mg/dL (9-16); Calcium 8.7 mg/dL (8.4-10.2); Carbon Dioxide 28 mmol/L (22-29); Chloride 104 mmol/L (96-108); Cholesterol 134 mg/dL (<200); Creatinine Clr Calc Pharmacy 45.5; Estimated Glomerular Filt Rate 55; Glucose Fasting 98 mg/dL (60-99); HDL Cholesterol 38 mg/dL (>40); LDL Cholesterol Calculated 82 mg/dL (<100); Potassium 4.3 mmol/L (3.3-5.1); Sodium 138 mmol/L (135-145); Total Protein 5.9 g/dL (6.5-8.0); Triglycerides 73 mg/dL (<150)
--- NOTE | 2023-03-24 11:16 | HO.PSYADMNOT ---
HPI Date of Service: 03/24/23 Chief Complaint: possible psychosis Sources of Information: patient interviewed, chart reviewed and crisis/core team assessment reviewed HPI Subjective Notes: Wilson Warning (given and shows understanding) and Conditional Voluntary Narrative: Mr. Leyva is a 82 year-old male with hx of COPD, admitted to medical floor for exacerbation of COPD although o2sat on RA was 97%. Per , pt has been presenting with increase periods of confusion, combative behaviors for the past year. Per , pt has not been diagnose with dementia but she reports that he is not able to manage finances or his medications and she is usually the one doing it. She reports sometimes at night he can become combative and she would leave and stay with their daughter. Labs on the medical floor, include CBC- slightly elevated WBC (12), trending down. Afebrile without any s/s of infection. UA did not show signs of infection. CMP elevation of BUN 24, Cr 1.24. 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 On the medical floor, pt was observed to become more combative at night and received IM medication (olanzapine and at times ativan). He presented with signs of delirium on 03/18- of unclear nature (as again labs did not show any acute finding like infection, electrolyte imbalances, focal deficits). He used to be prescribed xanax 0.5mg po QID for several years which was abruptly d/conrad by PCP. Pt and his reports that he was not taking it daily or more than 1-2 tablets. However, he was started on benzo taper. He did appear much less confused on 03/19 after initiating clonazepam. He was also started on seroquel 50mg po daily and 50mg po qhs that was increased to 100mg po qhs. On the unit, pt presents as calm. He reports he hopes to go home soon. He denies SI/HI. He states I never said I was suicidal or homicidal, why am I here. Pt explained periods of confusion and decrease cognitive function, which pt was in agreement. He does not appear internally preoccupied. No overt delusional content noted or reported. He is oriented to place, month and year. Pending MOCA and ACL to assess extend and pattern of cognitive impairment Past Psychiatric History: Inpt: none OP: none Hx of anxiety- on xanax for several years Medical Evaluation Reviewed: Yes [facility] Medical History COPD (chronic obstructive pulmonary disease) Pulmonary emphysema Osteopenia Hyperparathyroidism Osteoporosis Vitamin D deficiency Multinodular thyroid Surgical History Hx of prostatectomy Hx of hernia repair Family History: none Social History: Pt . He has a daughter Substance History: None Trauma History: denies Diagnostics Vital Signs (24Hr): Vital Signs - 24 hr 03/23/23 14:52 03/23/23 18:00 03/24/23 08:00 Temperature 99.1 F 99.4 F 97.1 F Pulse Rate 90 85 86 Respiratory Rate 18 16 18 Blood Pressure 145/80 H 122/67 174/83 H Pulse Oximetry 96 95 95 Oxygen Delivery Method Room Air Nasal Cannula Room Air Oxygen Flow Rate 2 BMI result Body Mass Index 24.5 Labs 03/24/23 08:08 Labs: Laboratory Results - last 48 hr 03/24/23 08:08 Sodium 138 Potassium 4.3 Chloride 104 Carbon Dioxide 28 Anion Gap 10 L BUN 24 H Creatinine 1.25 Estim Creat Clear Calc 45.5 Estimated GFR 55 Fasting Glucose 98 Calcium 8.7 Total Bilirubin 0.6 AST 32 ALT 26 Alkaline Phosphatase 98 Total Protein 5.9 L Albumin 3.2 L Triglycerides 73 Cholesterol 134 LDL Cholesterol, Calc 82 HDL Cholesterol 38 L Meds/Allergies Meds Home Medications Medication Instructions Recorded Confirmed Type clopidogrel 75 mg tablet 75 mg PO DAILY 05/13/20 03/15/23 History lisinopril 20 mg tablet 20 mg PO DAILY 05/13/20 03/15/23 History simvastatin 20 mg tablet 20 mg PO BEDTIME 05/13/20 03/15/23 History aspirin 81 mg tablet,delayed 81 mg PO DAILY 08/25/22 03/15/23 History release albuterol sulfate 90 mcg/actuation 2 puff inhalation Q6H PRN 02/28/23 03/15/23 History aerosol inhaler (ProAir HFA) shortness of breath or wheezing alprazolam 0.5 mg tablet 0.5 mg PO QID PRN Anxiety 02/28/23 03/15/23 History ipratropium 0.5 mg-albuterol 3 mg 3 ml inhalation BID-TID PRN 02/28/23 03/15/23 History (2.5 mg base)/3 mL nebulization wheezing soln tiotropium bromide 2.5 2 puff inhalation DAILY COPD 02/28/23 03/15/23 History mcg/actuation mist for inhalation (Spiriva Respimat) Allergies Allergies Allergy/AdvReac Type Severity Reaction Status Date / Time No Known Allergies Allergy Mild NONE Verified 02/02/23 13:32 cats dogs ragweed dust pollen Allergy Unknown Unknown Uncoded 02/02/23 13:32 Mental Status Exam Mental Status Exam Narrative: Appearance: casually groomed, good hygiene, in NAD Behavior: cooperative Psychomotor: no agitation or retardation noted Speech: mostly clear, normal rate/rhythm/volume, spontaneous TP: linear with poverty of thought TC: hoping to go home soon Mood: good Affect: congruent, slight irritable edge SI: denies HI: denies VH/AH: none Delusions: no delusional content noted or reported. insight/judgment: impaired x 2 Memory/cog: alert, oriented to place, vague about situation, month and year. Pending MOCA and ACL Assessment & Plan Assessment & Plan (1) Multifactorial dementia: Status: Acute Code(s): F03.90 - Unspecified dementia, unspecified severity, without behavioral disturbance, psychotic disturbance, mood disturbance, and anxiety Plan Mr. Leyva is a 82 y/o male who presents with s/s of Major Neurocognitive Disorder- increase forgetfulness, decrease level of functioning with impaired executive function in terms of ability to manage medications, finances, ability to recall information with fairly intact orientation. Discussed risks, benefits and alternative treatment options- will continue clonazepam 0.5mg po BID (will attempt slow taper),seroquel 50mg po daily and 100mg po qhs. PLAN 1. Admit to S1, CV, 1:1 due to nasal canula 2. continue seroquel and clonazepam taper 3. Obtain collateral information 4. Aftercare planning. Patient educated on: diagnosis Reason for continued inpatient stay Substantial Risk for: inability to function Statement Statement: I have reviewed the history and physical and performed a pertinent examination on my patient. No changes have occurred unless specified. If the History and Physical was not performed prior to admission, the Hospitalist's service will be consulted for completing the admission physical. Time Spent With Patient Time: Total time managing care of this patient today ____ minutes.
[2023-03-24 11:58] LABS: Estimated Average Glucose 103 mg/dL; Hemoglobin A1c % 5.2 % (<6.0)
[2023-03-24 18:00] VITALS: BP 131/60; PULSE 92; RESP 18; TEMP 36.4; O2SAT 94
[2023-03-24] MEDS: Melatonin 3 MG TABLET 6 MG PO (21:29)
[2023-03-24] MEDS: Atorvastatin Calcium 10 MG TABLET PO (21:30)
[2023-03-25 07:30] VITALS: BP 152/67; PULSE 84; RESP 18; TEMP 36.8; O2SAT 94
[2023-03-25] MEDS: Fluticasone/Vilanterol 100/25 BLST.W.DEV 1 PUFF INHALE (08:11)
[2023-03-25] MEDS: QUEtiapine Fumarate 50 MG TABLET PO ×2 (08:14→20:55)
[2023-03-25] MEDS: lisinopriL 20 MG TABLET PO (08:14)
[2023-03-25] MEDS: Memantine HCl 5 MG TABLET PO ×2 (08:14→20:55)
[2023-03-25] MEDS: Clopidogrel Bisulfate 75 MG TABLET PO (08:14)
[2023-03-25] MEDS: Aspirin Enteric Coated 81 MG TABLET.DR PO (08:14)
[2023-03-25 12:18] VITALS: BMI 25.3
--- NOTE | 2023-03-25 16:15 | HO.PSYCHPN ---
Subjective Subjective Date of Service: 03/25/23 Reason For Visit: possible psychosis Subjective Notes: Conditional Voluntary Healthcare Proxy: Yes Interim History: pt continues to present as calmer. No aggression towards self or others. He is sleeping through the night. He does have NC 2L. He denies SI/HI. He appears calmer, less irritable edge. Medication Compliance: Yes Review of Systems Review of Systems No SOB, pt on 2L NC No chest pain. Denies any pain. NO GI complaints. Mental Status Exam Mental Status Exam Narrative: Appearance: casually groomed, good hygiene, in NAD Behavior: cooperative Psychomotor: no agitation or retardation noted Speech: mostly clear, normal rate/rhythm/volume, spontaneous TP: linear with poverty of thought TC: hoping to go home soon Mood: good Affect: congruent, slight irritable edge SI: denies HI: denies VH/AH: none Delusions: no delusional content noted or reported. insight/judgment: impaired x 2 Memory/cog: alert, oriented to place, vague about situation, month and year. Pending MOCA and ACL Diagnostics Vital Signs (24Hr): Vital Signs - 24 hr 03/24/23 18:00 03/25/23 07:30 Temperature 97.6 F 98.3 F Pulse Rate 92 84 Respiratory Rate 18 18 Blood Pressure 131/60 152/67 H Pulse Oximetry 94 94 Oxygen Delivery Method Nasal Cannula Nasal Cannula BMI result Body Mass Index 25.3 Labs 03/24/23 08:08 Labs: Laboratory Results - last 48 hr 03/24/23 08:08 Sodium 138 Potassium 4.3 Chloride 104 Carbon Dioxide 28 Anion Gap 10 L BUN 24 H Creatinine 1.25 Estim Creat Clear Calc 45.5 Estimated GFR 55 Fasting Glucose 98 Estimat Average Glucose 103 Hemoglobin A1c % 5.2 Calcium 8.7 Total Bilirubin 0.6 AST 32 ALT 26 Alkaline Phosphatase 98 Total Protein 5.9 L Albumin 3.2 L Triglycerides 73 Cholesterol 134 LDL Cholesterol, Calc 82 HDL Cholesterol 38 L Medications Medications Current Medications Acetaminophen (Acetaminophen 325 Mg Tablet) 650 mg PO Q6H PRN PRN Reason: Pain, Mild (Pain Scale 1-3) Al Hydroxide/Mg Hydroxide (Magnesium Hydrox/Alum Hydrox 30 Ml Oral.Susp) 30 ml PO Q4H PRN PRN Reason: Heartburn/Nausea Albuterol Sulfate (Albuterol Sulfate 90 Mcg 8 Gm Inhaler) 2 puff INHALE RQ4H PRN PRN Reason: sob Albuterol/Ipratropium (Albuterol/Iprat 2.5/0.5mg 3 Ml Ampul.Neb) 3 ml INHALE RQ6H PRN PRN Reason: wheezing Artificial Tears (Artificial Tears 15 Ml Drops) 1 drop EYE-BOTH Q4H PRN PRN Reason: Dry Eyes Aspirin (Aspirin Enteric Coated 81 Mg Tablet.Dr) 81 mg PO DAILY [facility] Last Admin: 03/25/23 08:14 Dose: 81 mg Atorvastatin Calcium (Atorvastatin Calcium 10 Mg Tablet) 10 mg PO BEDTIME [facility] Last Admin: 03/24/23 21:30 Dose: 10 mg Clonazepam (Clonazepam 0.125 Mg Tab.Rapdis) 0.5 mg PO BID [facility] Last Admin: 03/25/23 08:14 Dose: 0.5 mg Clopidogrel Bisulfate (Clopidogrel Bisulfate 75 Mg Tablet) 75 mg PO DAILY [facility] Last Admin: 03/25/23 08:14 Dose: 75 mg Fluticasone/Vilanterol (Fluticasone/Vilanterol 100/25 Blst.W.Dev) 1 puff INHALE RDAILY [facility] Last Admin: 03/25/23 08:11 Dose: 1 puff Lisinopril (Lisinopril 20 Mg Tablet) 20 mg PO DAILY [facility]; Protocol Last Admin: 03/25/23 08:14 Dose: 20 mg Melatonin (Melatonin 3 Mg Tablet) 6 mg PO BEDTIME PRN PRN Reason: Insomnia Last Admin: 03/24/23 21:29 Dose: 6 mg Memantine (Memantine Hcl 5 Mg Tablet) 5 mg PO BID [facility] Last Admin: 03/25/23 08:14 Dose: 5 mg Quetiapine Fumarate (Quetiapine Fumarate 50 Mg Tablet) 50 mg PO BEDTIME [facility] Last Admin: 03/24/23 21:30 Dose: 50 mg Quetiapine Fumarate (Quetiapine Fumarate 50 Mg Tablet) 50 mg PO BID [facility] Last Admin: 03/25/23 08:14 Dose: 50 mg Tiotropium [place] (Tiotropium [place] 2.5 Mcg Inhaler) 2 puff INHALE DAILY [facility] Last Admin: 03/25/23 08:11 Dose: 2 puff Trazodone HCl (Trazodone Hcl 50 Mg Tablet) 50 mg PO BEDTIME MRX1 PRN PRN Reason: Insomnia Allergies Allergies Allergy/AdvReac Type Severity Reaction Status Date / Time No Known Allergies Allergy Mild NONE Verified 02/02/23 13:32 cats dogs ragweed dust pollen Allergy Unknown Unknown Uncoded 02/02/23 13:32 Assessment & Plan Assessment & Plan (1) Multifactorial dementia: Status: Acute Code(s): F03.90 - Unspecified dementia, unspecified severity, without behavioral disturbance, psychotic disturbance, mood disturbance, and anxiety Plan Mr. Leyva is a 82 y/o male who presents with s/s of Major Neurocognitive Disorder- increase forgetfulness, decrease level of functioning with impaired executive function in terms of ability to manage medications, finances, ability to recall information with fairly intact orientation. Discussed risks, benefits and alternative treatment options- will continue clonazepam 0.5mg po BID (will attempt slow taper),seroquel 50mg po daily and 100mg po qhs. PLAN 1. Admit to S1, CV, 1:1 due to nasal canula 2. continue seroquel and clonazepam taper 3. Obtain collateral information 4. Aftercare planning. 03/25 continue tx. Reason for continued inpatient stay Substantial Risk for: inability to function Time Spent With Patient Time: Total time managing care of this patient today ____ minutes.
[2023-03-25 18:00] VITALS: BP 117/77; PULSE 70; RESP 18; TEMP 37.1
[2023-03-25] MEDS: traZODone HCL 50 MG TABLET PO (20:55)
[2023-03-25] MEDS: Atorvastatin Calcium 10 MG TABLET PO (20:55)
[2023-03-26 07:30] VITALS: BP 122/56; PULSE 90; RESP 18; TEMP 36.7; O2SAT 95
[2023-03-26] MEDS: Fluticasone/Vilanterol 100/25 BLST.W.DEV 1 PUFF INHALE (08:09)
[2023-03-26] MEDS: Aspirin Enteric Coated 81 MG TABLET.DR PO (08:09)
[2023-03-26] MEDS: Memantine HCl 5 MG TABLET PO ×2 (08:10→20:19)
[2023-03-26] MEDS: QUEtiapine Fumarate 50 MG TABLET PO (08:10)
[2023-03-26] MEDS: lisinopriL 20 MG TABLET PO (08:10)
[2023-03-26] MEDS: Clopidogrel Bisulfate 75 MG TABLET PO (08:10)
[2023-03-26 18:00] VITALS: BP 134/80; PULSE 77; RESP 16; TEMP 36.9; O2SAT 95
--- NOTE | 2023-03-26 19:35 | P.PNPSI_ITS ---
Subjective Subjective Date of Service: 03/26/23 Reason For Visit: possible psychosis Subjective Notes: Conditional Voluntary Interim History: pt continues to present as calmer. No aggression towards self or others. He is sleeping through the night. He does have NC 2L. He denies SI/HI. He appears calmer, less irritable edge. We had family meeting discussed dx of dementia with vascular pattern. safety in the home, current medications. Family reports pt appears much calmer, relax and pleasant. Review of Systems Review of Systems No SOB, pt on 2L NC No chest pain. Denies any pain. NO GI complaints. Mental Status Exam Mental Status Exam Narrative: Appearance: casually groomed, good hygiene, in NAD Behavior: cooperative Psychomotor: no agitation or retardation noted Speech: mostly clear, normal rate/rhythm/volume, spontaneous TP: linear with poverty of thought TC: hoping to go home soon Mood: good Affect: congruent, slight irritable edge SI: denies HI: denies VH/AH: none Delusions: no delusional content noted or reported. insight/judgment: impaired x 2 Memory/cog: alert, oriented to place, vague about situation, month and year. Pending MOCA and ACL Diagnostics Vital Signs (24Hr): Vital Signs - 24 hr 03/26/23 07:30 Temperature 98.0 F Pulse Rate 90 Respiratory Rate 18 Blood Pressure 122/56 L Pulse Oximetry 95 Oxygen Delivery Method Nasal Cannula BMI result Body Mass Index 25.3 Labs 03/24/23 08:08 Medications Medications Current Medications Acetaminophen (Acetaminophen 325 Mg Tablet) 650 mg PO Q6H PRN PRN Reason: Pain, Mild (Pain Scale 1-3) Al Hydroxide/Mg Hydroxide (Magnesium Hydrox/Alum Hydrox 30 Ml Oral.Susp) 30 ml PO Q4H PRN PRN Reason: Heartburn/Nausea Albuterol Sulfate (Albuterol Sulfate 90 Mcg 8 Gm Inhaler) 2 puff INHALE RQ4H PRN PRN Reason: sob Albuterol/Ipratropium (Albuterol/Iprat 2.5/0.5mg 3 Ml Ampul.Neb) 3 ml INHALE RQ6H PRN PRN Reason: wheezing Artificial Tears (Artificial Tears 15 Ml Drops) 1 drop EYE-BOTH Q4H PRN PRN Reason: Dry Eyes Aspirin (Aspirin Enteric Coated 81 Mg Tablet.) 81 mg PO DAILY [facility] Last Admin: 03/26/23 08:09 Dose: 81 mg Atorvastatin Calcium (Atorvastatin Calcium 10 Mg Tablet) 10 mg PO BEDTIME [facility] Last Admin: 03/25/23 20:55 Dose: 10 mg Clonazepam (Clonazepam 0.125 Mg Tab.Rapdis) 0.5 mg PO BID [facility] Last Admin: 03/26/23 08:10 Dose: 0.5 mg Clopidogrel Bisulfate (Clopidogrel Bisulfate 75 Mg Tablet) 75 mg PO DAILY [facility] Last Admin: 03/26/23 08:10 Dose: 75 mg Fluticasone/Vilanterol (Fluticasone/Vilanterol 100/25 Blst.W.Dev) 1 puff INHALE RDAILY [facility] Last Admin: 03/26/23 08:09 Dose: 1 puff Lisinopril (Lisinopril 20 Mg Tablet) 20 mg PO DAILY [facility]; Protocol Last Admin: 03/26/23 08:10 Dose: 20 mg Melatonin (Melatonin 3 Mg Tablet) 6 mg PO BEDTIME PRN PRN Reason: Insomnia Last Admin: 03/24/23 21:29 Dose: 6 mg Memantine (Memantine Hcl 5 Mg Tablet) 5 mg PO BID [facility] Last Admin: 03/26/23 08:10 Dose: 5 mg Quetiapine Fumarate (Quetiapine Fumarate 50 Mg Tablet) 50 mg PO DAILY [facility] Quetiapine Fumarate (Quetiapine Fumarate 100 Mg Tablet) 100 mg PO BEDTIME [facility] Tiotropium [place] (Tiotropium [place] 2.5 Mcg Inhaler) 2 puff INHALE DAILY [facility] Last Admin: 03/26/23 08:08 Dose: 2 puff Trazodone HCl (Trazodone Hcl 50 Mg Tablet) 50 mg PO BEDTIME PRN PRN Reason: Insomnia Allergies Allergies Allergy/AdvReac Type Severity Reaction Status Date / Time No Known Allergies Allergy Mild NONE Verified 02/02/23 13:32 cats dogs ragweed dust pollen Allergy Unknown Unknown Uncoded 02/02/23 13:32 Assessment & Plan Assessment & Plan (1) Multifactorial dementia: Status: Acute Code(s): F03.90 - Unspecified dementia, unspecified severity, without behavioral disturbance, psychotic disturbance, mood disturbance, and anxiety Plan Mr. Leyva is a 82 y/o male who presents with s/s of Major Neurocognitive Disorder- increase forgetfulness, decrease level of functioning with impaired executive function in terms of ability to manage medications, finances, ability to recall information with fairly intact orientation. Discussed risks, benefits and alternative treatment options- will continue clonazepam 0.5mg po BID (will attempt slow taper),seroquel 50mg po daily and 100mg po qhs. PLAN 03/26 continue tx. Reason for continued inpatient stay Substantial Risk for: inability to function Time Spent With Patient Time: Total time managing care of this patient today ____ minutes.
[2023-03-26] MEDS: traZODone HCL 50 MG TABLET PO (20:18)
[2023-03-26] MEDS: Atorvastatin Calcium 10 MG TABLET PO (20:18)
[2023-03-26] MEDS: QUEtiapine Fumarate 100 MG TABLET PO (20:19)
[2023-03-27 06:00] VITALS: BP 126/66; PULSE 100; RESP 18; TEMP 36.4; O2SAT 99
[2023-03-27] MEDS: Aspirin Enteric Coated 81 MG TABLET.DR PO (08:33)
[2023-03-27] MEDS: Clopidogrel Bisulfate 75 MG TABLET PO (08:33)
[2023-03-27] MEDS: QUEtiapine Fumarate 50 MG TABLET PO (08:33)
[2023-03-27] MEDS: Memantine HCl 5 MG TABLET PO ×2 (08:33→19:58)
[2023-03-27] MEDS: lisinopriL 20 MG TABLET PO (08:33)
[2023-03-27] MEDS: Fluticasone/Vilanterol 100/25 BLST.W.DEV 1 PUFF INHALE (08:38)
--- NOTE | 2023-03-27 11:36 | HO.PSYCHPN ---
Subjective Subjective Date of Service: 03/27/23 Reason For Visit: possible psychosis Subjective Notes: Conditional Voluntary Healthcare Proxy: Yes Interim History: pt continues to present as calmer. No aggression towards self or others. He is sleeping through the night. He does have NC 2L. He denies SI/HI. He appears calmer, less irritable edge. Pt reports he is doing well. He reports is looking forward to return home and see . He denies SI/HI. No psychosis or delusions. Review of Systems Review of Systems No SOB, pt on 2L NC No chest pain. Denies any pain. NO GI complaints. Mental Status Exam Mental Status Exam Narrative: Appearance: casually groomed, good hygiene, in NAD Behavior: cooperative Psychomotor: no agitation or retardation noted Speech: mostly clear, normal rate/rhythm/volume, spontaneous TP: linear with poverty of thought TC: hoping to go home soon Mood: good Affect: congruent, slight irritable edge SI: denies HI: denies VH/AH: none Delusions: no delusional content noted or reported. insight/judgment: impaired x 2 Memory/cog: alert, oriented to place, vague about situation, month and year. Pending MOCA and ACL Diagnostics Vital Signs (24Hr): Vital Signs - 24 hr 03/26/23 18:00 03/27/23 06:00 Temperature 98.5 F 97.6 F Pulse Rate 77 100 Respiratory Rate 16 18 Blood Pressure 134/80 126/66 Pulse Oximetry 95 99 Oxygen Delivery Method Room Air Nasal Cannula Oxygen Flow Rate 2 BMI result Body Mass Index 25.3 Labs 03/24/23 08:08 Medications Medications Current Medications Acetaminophen (Acetaminophen 325 Mg Tablet) 650 mg PO Q6H PRN PRN Reason: Pain, Mild (Pain Scale 1-3) Al Hydroxide/Mg Hydroxide (Magnesium Hydrox/Alum Hydrox 30 Ml Oral.Susp) 30 ml PO Q4H PRN PRN Reason: Heartburn/Nausea Albuterol Sulfate (Albuterol Sulfate 90 Mcg 8 Gm Inhaler) 2 puff INHALE RQ4H PRN PRN Reason: sob Albuterol/Ipratropium (Albuterol/Iprat 2.5/0.5mg 3 Ml Ampul.Neb) 3 ml INHALE RQ6H PRN PRN Reason: wheezing Artificial Tears (Artificial Tears 15 Ml Drops) 1 drop EYE-BOTH Q4H PRN PRN Reason: Dry Eyes Aspirin (Aspirin Enteric Coated 81 Mg Tablet.Dr) 81 mg PO DAILY [facility] Last Admin: 03/27/23 08:33 Dose: 81 mg Atorvastatin Calcium (Atorvastatin Calcium 10 Mg Tablet) 10 mg PO BEDTIME [facility] Last Admin: 03/26/23 20:18 Dose: 10 mg Clonazepam (Clonazepam 0.125 Mg Tab.Rapdis) 0.5 mg PO BID [facility] Last Admin: 03/27/23 08:33 Dose: 0.5 mg Clopidogrel Bisulfate (Clopidogrel Bisulfate 75 Mg Tablet) 75 mg PO DAILY [facility] Last Admin: 03/27/23 08:33 Dose: 75 mg Fluticasone/Vilanterol (Fluticasone/Vilanterol 100/25 Blst.W.Dev) 1 puff INHALE RDAILY [facility] Last Admin: 03/27/23 08:38 Dose: 1 puff Lisinopril (Lisinopril 20 Mg Tablet) 20 mg PO DAILY [facility]; Protocol Last Admin: 03/27/23 08:33 Dose: 20 mg Melatonin (Melatonin 3 Mg Tablet) 6 mg PO BEDTIME PRN PRN Reason: Insomnia Last Admin: 03/24/23 21:29 Dose: 6 mg Memantine (Memantine Hcl 5 Mg Tablet) 5 mg PO BID [facility] Last Admin: 03/27/23 08:33 Dose: 5 mg Quetiapine Fumarate (Quetiapine Fumarate 50 Mg Tablet) 50 mg PO DAILY [facility] Last Admin: 03/27/23 08:33 Dose: 50 mg Quetiapine Fumarate (Quetiapine Fumarate 100 Mg Tablet) 100 mg PO BEDTIME [facility] Last Admin: 03/26/23 20:19 Dose: 100 mg Tiotropium [place] (Tiotropium [place] 2.5 Mcg Inhaler) 2 puff INHALE DAILY [facility] Last Admin: 03/27/23 08:38 Dose: 2 puff Trazodone HCl (Trazodone Hcl 50 Mg Tablet) 50 mg PO BEDTIME PRN PRN Reason: Insomnia Last Admin: 03/26/23 20:18 Dose: 50 mg Allergies Allergies Allergy/AdvReac Type Severity Reaction Status Date / Time No Known Allergies Allergy Mild NONE Verified 02/02/23 13:32 cats dogs ragweed dust pollen Allergy Unknown Unknown Uncoded 02/02/23 13:32 Assessment & Plan Assessment & Plan (1) Multifactorial dementia: Status: Acute Code(s): F03.90 - Unspecified dementia, unspecified severity, without behavioral disturbance, psychotic disturbance, mood disturbance, and anxiety Plan Mr. Leyva is a 82 y/o male who presents with s/s of Major Neurocognitive Disorder- increase forgetfulness, decrease level of functioning with impaired executive function in terms of ability to manage medications, finances, ability to recall information with fairly intact orientation. Discussed risks, benefits and alternative treatment options- will continue clonazepam 0.5mg po BID (will attempt slow taper),seroquel 50mg po daily and 100mg po qhs. PLAN 03/26 continue tx. 03/27 continue tx. Reason for continued inpatient stay Substantial Risk for: inability to function Time Spent With Patient Time: Total time managing care of this patient today ____ minutes.
[2023-03-27 18:00] VITALS: BP 140/58; PULSE 80; RESP 18; TEMP 36.5; O2SAT 95
[2023-03-27] MEDS: traZODone HCL 50 MG TABLET PO (19:57)
[2023-03-27] MEDS: Atorvastatin Calcium 10 MG TABLET PO (19:57)
[2023-03-27] MEDS: QUEtiapine Fumarate 100 MG TABLET PO (19:58)
[2023-03-28 06:00] VITALS: BP 114/66; PULSE 89; TEMP 36.9; O2SAT 94
[2023-03-28] MEDS: Fluticasone/Vilanterol 100/25 BLST.W.DEV 1 PUFF INHALE (09:08)
[2023-03-28] MEDS: lisinopriL 20 MG TABLET PO (09:08)
[2023-03-28] MEDS: QUEtiapine Fumarate 50 MG TABLET PO (09:09)
[2023-03-28] MEDS: Memantine HCl 5 MG TABLET PO ×2 (09:09→20:53)
[2023-03-28] MEDS: Clopidogrel Bisulfate 75 MG TABLET PO (09:09)
[2023-03-28] MEDS: Aspirin Enteric Coated 81 MG TABLET.DR PO (09:09)
--- NOTE | 2023-03-28 14:53 | HO.PSYCHPN ---
Subjective Subjective Date of Service: 03/28/23 Reason For Visit: possible psychosis Subjective Notes: Conditional Voluntary Interim History: pt continues to present as calmer. No aggression towards self or others. He is sleeping through the night. He does have NC 2L. He denies SI/HI. He appears calmer, less irritable edge. He reports last night it was loud on the unit and he was somewhat anxious but much better today. No agitation or retardation noted. Medication Compliance: Yes Review of Systems Review of Systems No SOB, pt on 2L NC No chest pain. Denies any pain. NO GI complaints. Mental Status Exam Mental Status Exam Narrative: Appearance: casually groomed, good hygiene, in NAD Behavior: cooperative Psychomotor: no agitation or retardation noted Speech: mostly clear, normal rate/rhythm/volume, spontaneous TP: linear with poverty of thought TC: hoping to go home soon Mood: good Affect: congruent, slight irritable edge SI: denies HI: denies VH/AH: none Delusions: no delusional content noted or reported. insight/judgment: impaired x 2 Memory/cog: alert, oriented to place, vague about situation, month and year. Pending MOCA and ACL Diagnostics Vital Signs (24Hr): Vital Signs - 24 hr 03/27/23 18:00 03/28/23 06:00 Temperature 97.7 F 98.4 F Pulse Rate 80 89 Respiratory Rate 18 Blood Pressure 140/58 H 114/66 Pulse Oximetry 95 94 Oxygen Delivery Method Nasal Cannula Nasal Cannula Oxygen Flow Rate 2 2 BMI result Body Mass Index 25.3 Labs 03/24/23 08:08 Medications Medications Current Medications Acetaminophen (Acetaminophen 325 Mg Tablet) 650 mg PO Q6H PRN PRN Reason: Pain, Mild (Pain Scale 1-3) Al Hydroxide/Mg Hydroxide (Magnesium Hydrox/Alum Hydrox 30 Ml Oral.Susp) 30 ml PO Q4H PRN PRN Reason: Heartburn/Nausea Albuterol Sulfate (Albuterol Sulfate 90 Mcg 8 Gm Inhaler) 2 puff INHALE RQ4H PRN PRN Reason: sob Albuterol/Ipratropium (Albuterol/Iprat 2.5/0.5mg 3 Ml Ampul.Neb) 3 ml INHALE RQ6H PRN PRN Reason: wheezing Artificial Tears (Artificial Tears 15 Ml Drops) 1 drop EYE-BOTH Q4H PRN PRN Reason: Dry Eyes Aspirin (Aspirin Enteric Coated 81 Mg Tablet.Dr) 81 mg PO DAILY [facility] Last Admin: 03/28/23 09:09 Dose: 81 mg Atorvastatin Calcium (Atorvastatin Calcium 10 Mg Tablet) 10 mg PO BEDTIME [facility] Last Admin: 03/27/23 19:57 Dose: 10 mg Clonazepam (Clonazepam 0.125 Mg Tab.Rapdis) 0.5 mg PO BID [facility] Last Admin: 03/28/23 09:08 Dose: 0.5 mg Clopidogrel Bisulfate (Clopidogrel Bisulfate 75 Mg Tablet) 75 mg PO DAILY [facility] Last Admin: 03/28/23 09:09 Dose: 75 mg Fluticasone/Vilanterol (Fluticasone/Vilanterol 100/25 Blst.W.Dev) 1 puff INHALE RDAILY [facility] Last Admin: 03/28/23 09:08 Dose: 1 puff Lisinopril (Lisinopril 20 Mg Tablet) 20 mg PO DAILY [facility]; Protocol Last Admin: 03/28/23 09:08 Dose: 20 mg Melatonin (Melatonin 3 Mg Tablet) 6 mg PO BEDTIME PRN PRN Reason: Insomnia Last Admin: 03/24/23 21:29 Dose: 6 mg Memantine (Memantine Hcl 5 Mg Tablet) 5 mg PO BID [facility] Last Admin: 03/28/23 09:09 Dose: 5 mg Quetiapine Fumarate (Quetiapine Fumarate 50 Mg Tablet) 50 mg PO DAILY [facility] Last Admin: 03/28/23 09:09 Dose: 50 mg Quetiapine Fumarate (Quetiapine Fumarate 100 Mg Tablet) 100 mg PO BEDTIME [facility] Last Admin: 03/27/23 19:58 Dose: 100 mg Tiotropium [place] (Tiotropium [place] 2.5 Mcg Inhaler) 2 puff INHALE DAILY [facility] Last Admin: 03/28/23 09:13 Dose: 2 puff Trazodone HCl (Trazodone Hcl 50 Mg Tablet) 50 mg PO BEDTIME PRN PRN Reason: Insomnia Last Admin: 03/27/23 19:57 Dose: 50 mg Allergies Allergies Allergy/AdvReac Type Severity Reaction Status Date / Time No Known Allergies Allergy Mild NONE Verified 02/02/23 13:32 cats dogs ragweed dust pollen Allergy Unknown Unknown Uncoded 02/02/23 13:32 Assessment & Plan Assessment & Plan (1) Multifactorial dementia: Status: Acute Code(s): F03.90 - Unspecified dementia, unspecified severity, without behavioral disturbance, psychotic disturbance, mood disturbance, and anxiety Plan Mr. Leyva is a 82 y/o male who presents with s/s of Major Neurocognitive Disorder- increase forgetfulness, decrease level of functioning with impaired executive function in terms of ability to manage medications, finances, ability to recall information with fairly intact orientation. Discussed risks, benefits and alternative treatment options- will continue clonazepam 0.5mg po BID (will attempt slow taper),seroquel 50mg po daily and 100mg po qhs. PLAN 03/26 continue tx. 03/27 continue tx. 03/28 continue tx. dc 03/30 Reason for continued inpatient stay Substantial Risk for: inability to function Time Spent With Patient Time: Total time managing care of this patient today ____ minutes.
[2023-03-28 18:00] VITALS: BP 134/59; PULSE 79; RESP 18; TEMP 37.4; O2SAT 98
[2023-03-28] MEDS: QUEtiapine Fumarate 100 MG TABLET PO (20:53)
[2023-03-28] MEDS: Atorvastatin Calcium 10 MG TABLET PO (20:53)
[2023-03-29 09:17] VITALS: BP 128/69; PULSE 90; RESP 18; TEMP 37.1; O2SAT 95
[2023-03-29] MEDS: Memantine HCl 5 MG TABLET PO ×2 (09:24→21:00)
[2023-03-29] MEDS: Clopidogrel Bisulfate 75 MG TABLET PO (09:24)
[2023-03-29] MEDS: lisinopriL 20 MG TABLET PO (09:24)
[2023-03-29] MEDS: Aspirin Enteric Coated 81 MG TABLET.DR PO (09:24)
[2023-03-29] MEDS: QUEtiapine Fumarate 50 MG TABLET PO (09:24)
[2023-03-29] MEDS: Fluticasone/Vilanterol 100/25 BLST.W.DEV 1 PUFF INHALE (09:25)
--- NOTE | 2023-03-29 16:39 | P.PNPSI_ITS ---
Subjective Subjective Date of Service: 03/29/23 Reason For Visit: possible psychosis Subjective Notes: Conditional Voluntary Interim History: The nursing staff reported the patient had been receiving his oxygen as usual by nasal cannula. He slept well and he had been compliant with treatment. Yesterday his visit him. On interview the patient denies new symptoms as per treatment plan we will discharge him tomorrow. Mental Status Exam Mental Status Exam Patient Appearance: Appropriate Patient Orientation: Person and Situation Level of Consciousness: Awake and Appropriate Patient Behavior: Guarded and Passive Mood Description: Withdrawn Affect Description: Constricted Patient Cognition Impaired: Yes Ability to Follow Directions: Good Speech Pattern: Clear Hallucinations: None Delusions: Not Present Thought Process: Distracted and Linear Thought Content: positive for [place] and positive for Poverty of Content Judgement: Fair Diagnostics Vital Signs (24Hr): Vital Signs - 24 hr 03/28/23 18:00 03/29/23 09:17 Temperature 99.3 F 98.8 F Pulse Rate 79 90 Respiratory Rate 18 18 Blood Pressure 134/59 L 128/69 Pulse Oximetry 98 95 Oxygen Delivery Method Nasal Cannula Nasal Cannula Oxygen Flow Rate 2 2 BMI result Body Mass Index 25.3 Labs 03/24/23 08:08 Medications Medications Current Medications Acetaminophen (Acetaminophen 325 Mg Tablet) 650 mg PO Q6H PRN PRN Reason: Pain, Mild (Pain Scale 1-3) Al Hydroxide/Mg Hydroxide (Magnesium Hydrox/Alum Hydrox 30 Ml Oral.Susp) 30 ml PO Q4H PRN PRN Reason: Heartburn/Nausea Albuterol Sulfate (Albuterol Sulfate 90 Mcg 8 Gm Inhaler) 2 puff INHALE RQ4H PRN PRN Reason: sob Albuterol/Ipratropium (Albuterol/Iprat 2.5/0.5mg 3 Ml Ampul.Neb) 3 ml INHALE RQ6H PRN PRN Reason: wheezing Artificial Tears (Artificial Tears 15 Ml Drops) 1 drop EYE-BOTH Q4H PRN PRN Reason: Dry Eyes Aspirin (Aspirin Enteric Coated 81 Mg Tablet.) 81 mg PO DAILY [facility] Last Admin: 03/29/23 09:24 Dose: 81 mg Atorvastatin Calcium (Atorvastatin Calcium 10 Mg Tablet) 10 mg PO BEDTIME [facility] Last Admin: 03/28/23 20:53 Dose: 10 mg Clopidogrel Bisulfate (Clopidogrel Bisulfate 75 Mg Tablet) 75 mg PO DAILY [facility] Last Admin: 03/29/23 09:24 Dose: 75 mg Fluticasone/Vilanterol (Fluticasone/Vilanterol 100/25 Blst.W.Dev) 1 puff INHALE RDAILY [facility] Last Admin: 03/29/23 09:25 Dose: 1 puff Lisinopril (Lisinopril 20 Mg Tablet) 20 mg PO DAILY [facility]; Protocol Last Admin: 03/29/23 09:24 Dose: 20 mg Melatonin (Melatonin 3 Mg Tablet) 6 mg PO BEDTIME PRN PRN Reason: Insomnia Last Admin: 03/24/23 21:29 Dose: 6 mg Memantine (Memantine Hcl 5 Mg Tablet) 5 mg PO BID [facility] Last Admin: 03/29/23 09:24 Dose: 5 mg Quetiapine Fumarate (Quetiapine Fumarate 50 Mg Tablet) 50 mg PO DAILY [facility] Last Admin: 03/29/23 09:24 Dose: 50 mg Quetiapine Fumarate (Quetiapine Fumarate 100 Mg Tablet) 100 mg PO BEDTIME [facility] Last Admin: 03/28/23 20:53 Dose: 100 mg Tiotropium [place] (Tiotropium [place] 2.5 Mcg Inhaler) 2 puff INHALE DAILY [facility] Last Admin: 03/29/23 09:28 Dose: 2 puff Trazodone HCl (Trazodone Hcl 50 Mg Tablet) 50 mg PO BEDTIME PRN PRN Reason: Insomnia Last Admin: 03/27/23 19:57 Dose: 50 mg Allergies Allergies Allergy/AdvReac Type Severity Reaction Status Date / Time No Known Allergies Allergy Mild NONE Verified 02/02/23 13:32 cats dogs ragweed dust pollen Allergy Unknown Unknown Uncoded 02/02/23 13:32 Assessment & Plan Assessment & Plan (1) Multifactorial dementia: Status: Acute Code(s): F03.90 - Unspecified dementia, unspecified severity, without behavioral disturbance, psychotic disturbance, mood disturbance, and anxiety Plan Mr. Leyva is a 82 y/o male who presents with s/s of Major Neurocognitive Disorder- increase forgetfulness, decrease level of functioning with impaired executive function in terms of ability to manage medications, finances, ability to recall information with fairly intact orientation. Discussed risks, benefits and alternative treatment options- will continue clonazepam 0.5mg po BID (will attempt slow taper),seroquel 50mg po daily and 100mg po qhs. PLAN 1. Keep with same treatment. 2. Discharge tomorrow Reason for continued inpatient stay Substantial Risk for: inability to function, rapid decompensation and med/psych decompensation Time Spent With Patient Time: Total time managing care of this patient today ___20_ minutes.
[2023-03-29 18:00] VITALS: BP 107/53; PULSE 75; RESP 18; TEMP 36.7; O2SAT 98
[2023-03-29] MEDS: Melatonin 3 MG TABLET 6 MG PO (21:00)
[2023-03-29] MEDS: QUEtiapine Fumarate 100 MG TABLET PO (21:00)
[2023-03-29] MEDS: Atorvastatin Calcium 10 MG TABLET PO (21:00)
[2023-03-30 08:36] VITALS: BP 143/68; PULSE 81; RESP 16; TEMP 36.5; O2SAT 97
[2023-03-30] MEDS: lisinopriL 20 MG TABLET PO (08:39)
[2023-03-30] MEDS: Memantine HCl 5 MG TABLET PO (08:40)
[2023-03-30] MEDS: Clopidogrel Bisulfate 75 MG TABLET PO (08:40)
[2023-03-30] MEDS: Aspirin Enteric Coated 81 MG TABLET.DR PO (08:40)
[2023-03-30] MEDS: QUEtiapine Fumarate 50 MG TABLET PO (08:40)
[2023-03-30] MEDS: Fluticasone/Vilanterol 100/25 BLST.W.DEV 1 PUFF INHALE (08:41)
--- NOTE | 2023-03-30 09:20 | PM.PSYDC ---
DS: Providers Provider Date of Service: 03/30/23 Date of admission: 03/23/23 12:19 Date of discharge: 03/30/23 Primary care physician: Monique Physician Attending physician on discharge: Omar Pina DS: Diagnosis Discharge Diagnosis (1) Multifactorial dementia: Status: Acute DS: Medications Discharge Medications Home Medications: Home Medications Medication Instructions Recorded Confirmed clopidogrel 75 mg tablet 75 mg PO DAILY 05/13/20 03/15/23 lisinopril 20 mg tablet 20 mg PO DAILY 05/13/20 03/15/23 simvastatin 20 mg tablet 20 mg PO BEDTIME 05/13/20 03/15/23 aspirin 81 mg tablet,delayed 81 mg PO DAILY 08/25/22 03/15/23 release albuterol sulfate 90 mcg/actuation 2 puff inhalation Q6H PRN 02/28/23 03/15/23 aerosol inhaler (ProAir HFA) shortness of breath or wheezing alprazolam 0.5 mg tablet 0.5 mg PO QID PRN Anxiety 02/28/23 03/15/23 ipratropium 0.5 mg-albuterol 3 mg 3 ml inhalation BID-TID PRN 02/28/23 03/15/23 (2.5 mg base)/3 mL nebulization wheezing soln tiotropium bromide 2.5 2 puff inhalation DAILY COPD 02/28/23 03/15/23 mcg/actuation mist for inhalation (Spiriva Respimat) Mental Status Exam Mental Status Exam Patient Appearance: Appropriate Patient Orientation: Person and Situation Level of Consciousness: Awake and Appropriate Patient Behavior: Appropriate and Cooperative Mood Description: Calm Affect Description: Constricted Patient Cognition Impaired: Yes Ability to Follow Directions: Good Speech Pattern: Clear Hallucinations: None Delusions: Not Present Thought Process: Distracted and Linear Thought Content: positive for [place] and positive for Circumstantial Judgement: Fair Data Data Completed and Pending Completed studies during hospitalization [Text1]: 03/24/23 08:08 Sodium 138 Potassium 4.3 Chloride 104 Carbon Dioxide 28 Anion Gap 10 L BUN 24 H Creatinine 1.25 Estim Creat Clear Calc 45.5 Estimated GFR 55 Fasting Glucose 98 Estimat Average Glucose 103 Hemoglobin A1c % 5.2 Calcium 8.7 Total Bilirubin 0.6 AST 32 ALT 26 Alkaline Phosphatase 98 Total Protein 5.9 L Albumin 3.2 L Triglycerides 73 Cholesterol 134 LDL Cholesterol, Calc 82 HDL Cholesterol 38 L DS: Summary Hospital Course Hospital Course: The patient was initially admitted to Medicine due to COPD exacerbation. While he was in the medical unit, the family reported that his cognition has worsened, the patient carries a diagnosis of multifactorial dementia. Also, his reported that he has episodes of agitation and psychiatric consult was asked. After being medically cleared, the patient was transferring to this facility for psychiatric stabilization. Please see the HPI of the admission note for further details. On admission, it was clear that the patient had a cognitive impairment and he was started on Namenda titrated up to 5 mg p.o. b.i.d.. Also, since the patient had previous episodes of agitation he was slowly titrated up on Seroquel up to 50 mg p.o. q.a.m. and 100 mg p.o. q.h.s. with no over-sedation, mood irritability and good control of his behaviors. The patient was seen by the occupational therapist and it was clear that he had a cognitive impairment. He was difficult to assess since the patient is oxygen dependent. The patient's mood improved, he was pleasant, cooperative, compliant with meals and treatment and since there were no safety concerns discharge planning was discussed. His family is willing to take him back home with ancillary services already arranged by the social welfare administrator. Time spent discussing smoking cessation with patient: 3 to 10 minutes Status at Discharge Cognitive/behavioral status at discharge: Impaired at baseline Overall status at discharge: patient is back to baseline Time Spent with Patient Time attestation: Total time managing care of this patient today _30___ minutes. Time spent: Less than 30 minutes Discharge Plan Discharge Anticipated Discharge Date/Time: 03/30/23 10:00 Patient Disposition: Home Health Service Discharge Diagnosis: Multifactorial dementia Referrals: CARLOS Benito -- PCP [Other] - 04/01/23 2:00 pm (Appointment: 04/01/2023 @ 2pm ) Deb Vang - [facility] [Other] - 1 Week (Appointment will be scheduled upon discharge to the community. ) John Pandey - Psychiatrist/Prescriber [Other] - 04/26/23 3:30 pm (Appointment: Is by Telehealth. 04/26/2023 @ 3:30pm ) Physician,Monique J [Primary Care Provider] - 1 Week Discharge Medications: New atorvastatin 10 mg Tablet 10 mg PO BEDTIME 30 Days Qty: 30 0RF trazodone 50 mg Tablet 50 mg PO BEDTIME PRN (Reason: Insomnia) 30 Days Qty: 30 0RF quetiapine 100 mg Tablet 100 mg PO BEDTIME 30 Days Qty: 30 0RF Artificial Tears([id number]) 1-0.2-0.2 % Drops 1 drp ophthalmic (eye) Q4H PRN (Reason: Dry Eyes) Qty: 15 0RF memantine 5 mg Tablet 5 mg PO BID 30 Days Qty: 60 0RF quetiapine 50 mg Tablet 50 mg PO DAILY 30 Days Qty: 30 0RF melatonin 3 mg Tablet 6 mg PO BEDTIME PRN (Reason: Insomnia) Qty: 60 0RF fluticasone furoate-vilanterol [Breo Ellipta] 100-25 mcg/dose Blister With Device 1 inh inhalation RDAILY Qty: 60 0RF Continued ipratropium-albuterol 0.5 mg-3 mg(2.5 mg base)/3 mL solution for nebulization 3 ml inhalation BID-TID PRN (Reason: wheezing) 30 Days Qty: 60 0RF Rx Instructions: Use TID lisinopril 20 mg tablet 20 mg PO DAILY 30 Days Qty: 30 0RF clopidogrel 75 mg tablet 75 mg PO DAILY 30 Days Qty: 30 0RF aspirin 81 mg tablet,delayed release (DR/EC) 81 mg PO DAILY 30 Days Qty: 30 0RF albuterol sulfate [ProAir HFA] 90 mcg/actuation HFA aerosol inhaler 2 puff inhalation Q6H PRN (Reason: shortness of breath or wheezing) 30 Days Qty: 1 0RF Spiriva Respimat 2.5 mcg/actuation mist 2 puff inhalation DAILY Qty: 4 0RF Discontinued alprazolam 0.5 mg tablet 0.5 mg PO QID PRN (Reason: Anxiety) simvastatin 20 mg tablet 20 mg PO BEDTIME Discharge Orders: Discharge Order (Routine); Ordered 03/30/23 Ordered By: Omar Pina Diet: Advance to usual diet Activity on Discharge: As tolerated Stand Alone Forms: Patient Portal Discharge page Care Plan Goals: Care plan goals achieved in this admission Health Concerns: Continue treatment by outpatient providers Plan of Treatment: Continue psychiatric treatment by outpatient providers Assessment: Elderly male with several medical comorbidities such as COPD, initially admitted for COPD exacerbation transfer from Medicine since the patient had been declining more cognitively with periods of agitation. He was started on a slow titration of Seroquel that improved him also he was started on Namenda 5 mg p.o. b.i.d. with good tolerability. At this moment safe to be discharged to the community under the care of his family.
== END 2023-03-30 10:36 | disposition home health service (06) | DRG 884 ==
PROVIDERS: Social Worker; Admitting Provider Psychiatry & Neurology Psychiatry; Visit Provider Psychiatry & Neurology Psychiatry
DX: F03.90 Unspecified dementia, unspecified severity, without behavioral disturbance, psychotic disturbance, mood disturbance, and anxiety (principal); J43.9 Emphysema, unspecified; M81.0 Age-related osteoporosis without current pathological fracture; Z23 Encounter for immunization; Z87.891 Personal history of nicotine dependence; Z79.02 Long term (current) use of antithrombotics/antiplatelets; Z79.82 Long term (current) use of aspirin; Z79.899 Other long term (current) drug therapy
CPT/HCPCS: 36415; 80053; 80061; 83036; 90686

== ENCOUNTER → 2023-03-23 12:19 | Outpatient (BNV) | payer MEDICARE, SELFPAY | PROVIDERS: Admitting Provider Psychiatry & Neurology Psychiatry; Visit Provider Social Worker | DX: F03.90 Unspecified dementia, unspecified severity, without behavioral disturbance, psychotic disturbance, mood disturbance, and anxiety (principal) | CPT/HCPCS: 90792; 99231; 99238 ==

== ENCOUNTER 2023-04-19 07:40 | Emergency (ER) | payer MEDICARE, SELFPAY ==
--- NOTE | ~2023-04-19 | XR_ITS ---
EXAMINATION: XR CHEST CLINICAL INFORMATION: Shortness of breath COMPARISON: 03/15/2023 TECHNIQUE: Frontal view of the chest was obtained. FINDINGS: The emphysematous lungs chronically have a hyperlucent appearance. No evidence of pulmonary consolidation, pneumothorax or pleural effusion. Cardiac silhouette is in the normal size range. There is atherosclerotic calcification of the aorta. Bones appear to be diffusely osteopenic. Moderate osteoarthritis of glenohumeral joints. XR/XR chest 1V IMPRESSION: * Chronic emphysematous lung disease. * No evidence of pneumonia. No acute abnormality compared to 03/15/2023.
--- NOTE | 2023-04-19 07:44 | ECG_ITS ---
Test Reason : cp Blood Pressure : / mmHG Vent. Rate : 075 BPM Atrial Rate : 075 BPM P-R Int : 144 ms QRS Dur : 118 ms QT Int : 422 ms P-R-T Axes : 056 -89 020 degrees QTc Int : 471 ms Sinus rhythm with Premature atrial complexes Left anterior fascicular block Low voltage QRS Right bundle branch block Abnormal ECG When compared with ECG of 15-MAR-2023 03:57, No significant change was found Referred By: Kirill De Jesus Electronically Signed By:ADIA JACKSON MD
--- NOTE | 2023-04-19 07:45 | ED_ITS ---
HPI - SOB/Dyspnea General Chief Complaint: Chest Pain Stated Complaint: CP,SOB Time Seen by Provider: 04/19/23 07:42 Source: EMS Mode of arrival: EMS Limitations: other (dementia) History of Present Illness HPI Narrative: After returining from the bathroom at home the patient developed shortness of breath and chest pain. EMS gave ASA and oxygen, states he suffers from anxiety and depression. EKG showed paced rhythm MD elicited complaint: shortness of breath Pertinent past history: COPD Onset (ago): minute(s) Timing: constant Severity: moderate Related Data Previous Rx's Medication Instructions Recorded albuterol sulfate 90 mcg/actuation 2 puff inhalation Q6H PRN 03/30/23 aerosol inhaler (ProAir HFA) shortness of breath or wheezing 30 days #1 inhaler aspirin 81 mg tablet,delayed 81 mg PO DAILY 30 days #30 tabs 03/30/23 release atorvastatin 10 mg tablet 10 mg PO BEDTIME 30 days #30 tabs 03/30/23 clopidogrel 75 mg tablet 75 mg PO DAILY 30 days #30 tabs 03/30/23 fluticasone furoate 100 1 inh inhalation RDAILY #60 ea 03/30/23 mcg-vilanterol 25 mcg/dose inhalation powder (Breo Ellipta) ipratropium 0.5 mg-albuterol 3 mg 3 ml inhalation BID-TID PRN 03/30/23 (2.5 mg base)/3 mL nebulization wheezing 30 days #60 mL soln lisinopril 20 mg tablet 20 mg PO DAILY 30 days #30 tabs 03/30/23 melatonin 3 mg tablet 6 mg (2 x 3 mg) PO BEDTIME PRN 03/30/23 Insomnia #60 tabs memantine 5 mg tablet 5 mg PO BID 30 days #60 tabs 03/30/23 peg [id number] 1 1 drp ophthalmic (eye) Q4H PRN Dry 03/30/23 %-0.2 %-0.2 % eye drops Eyes #15 mL (Artificial Tears ([id number])) quetiapine 100 mg tablet 100 mg PO BEDTIME 30 days #30 tabs 03/30/23 quetiapine 50 mg tablet 50 mg PO DAILY 30 days #30 tabs 03/30/23 tiotropium bromide 2.5 2 puff inhalation DAILY COPD #4 03/30/23 mcg/actuation mist for inhalation grams (Spiriva Respimat) trazodone 50 mg tablet 50 mg PO BEDTIME PRN Insomnia 30 03/30/23 days #30 tabs Allergies Allergy/AdvReac Type Severity Reaction Status Date / Time No Known Allergies Allergy Mild NONE Verified 02/02/23 13:32 cats dogs ragweed dust pollen Allergy Unknown Unknown Uncoded 02/02/23 13:32 Review of Systems 2 Review of Systems: Yes Unobtainable due to mental status Neurologic: Denies Sensory deficit (Neuro) [facility] Past Medical History Medical History COPD (chronic obstructive pulmonary disease) Pulmonary emphysema Osteopenia Hyperparathyroidism Osteoporosis Vitamin D deficiency Multinodular thyroid Surgical History Hx of prostatectomy Hx of hernia repair Family History Family History Father No problems noted. Mother No problems noted. Social History Social History Household Members: Spouse Household Members Other:: 1 Housing: House Do you presently have visiting nurse or other home services: No Alcohol intake: never Patient Tobacco Use Status: Former Tobacco user Quit Date: 35 years Advance Directives: Yes Advance Directives on File: Yes Advance Directives Date on File: 02/28/23 service: No Sexual orientation: Straight/Heterosexual Physical Exam 2 Vital Signs: Vital Signs: Last Vital Signs Temp 98.4 F 04/19/23 07:53 Pulse 69 04/19/23 10:24 Resp 25 H 04/19/23 10:24 BP 120/60 04/19/23 10:24 Pulse Ox 98 04/19/23 10:24 O2 Del Method Nasal Cannula 04/19/23 10:24 O2 Flow Rate 2 04/19/23 10:24 Oxygen Flow Rate 2 04/19/23 07:53 BMI result Body Mass Index 23.9 Const: Other: Cachetic male appearing short of breath Nutritional Appearance: cachectic Orientation/consciousness: oriented to person Limitations: no limitations HEENT: Head: Yes normal to inspection Ears: external ears normal General nose exam: Normal external nose present Mouth: Normal oral and palatal mucosa present and oropharynx normal Throat: Yes posterior oropharynx normal Eyes: General: appearance normal, both eyes and all related structures Neck: Other: supple Neck: Yes normal visual inspection Chest: Chest palpation & inspection: normal inspection of the chest Resp: Other: distant bilaterally Cardio: Jugular venous distension: no JVD Rate: regular rate Rhythm: r egular rhythm Heart sounds: S1 normal heart sound present and S2 normal heart sound present GI: Inspection: Yes normal to inspection Palpation (GI): Soft to palpation, nontender and No hepatosplenomegaly present Auscultation: normal bowel sounds : General: Yes no CVA tenderness Back/Spine/Pelvis: Back: no CVA tenderness Skin: General skin exam: no rashes or lesions noted Neuro: General: oriented to person Cranial nerves: Yes CN's II-XII intact bilaterally Motor exam (neuro): 5/5 motor strength present throughout S ensory Exam: No Sensory deficit (Neuro) Extrem: General: Yes normal to inspection Psych: Appearance: grossly normal Course Reevaluation(s) Reevaluation #1: patient had breathing treatment with improvement, repeat troponins show a trending down of his levels, no infiltrate on xray will dc home Time: 11:19 Medications Administered Discontinued Medications Generic Name Dose Route Start Last Admin Trade Name Freq PRN Reason Stop Dose Admin Albuterol/Ipratropium 3 ml 04/19/23 09:04 04/19/23 09:07 Albuterol/Iprat 2.5/0.5mg 3 Ml Ampul.Neb INHALE 04/19/23 09:05 3 ml ONCE ONE Administration Medical Decision Making Differential Diagnosis Differential Diagnoses: The differential diagnosis associated with the presentation includes (COPD exacerbation, pneumonia, cardiac ischemia were all considered) Admission/Observation Consideration of admission/observation: Escalation of care including admission/observation considered Consult Healthcare Provider Respiratory therapy Lab Data 04/19/23 08:08 04/19/23 08:08 Labs: Lab Results 04/19/23 04/19/23 Range/Units 08:08 10:28 WBC 9.7 (4.8-10.8) X10*3/uL RBC 4.73 (4.60-5.80) X10*6/uL Hgb 15.2 (14.0-18.0) g/dl Hct 46.0 (42.0-52.0) % MCV 97.3 (80.0-98.0) fL MCH 32.1 (27.0-33.0) pg MCHC 33.0 (31.0-36.0) g/dl RDW 12.6 (11.0-16.0) % Plt Count 213 D (160-400) X10*3/uL MPV 10.9 (9.4-12.4) fL Immature Gran % (Auto) 1.3 H (0.0-0.4) % Neut % (Auto) 73.6 H (45-73) % Lymph % (Auto) 13.2 L (20-40) % [place] % (Auto) 9.0 (2-11) % Eos % (Auto) 2.0 (0-4) % Baso % (Auto) 0.9 (0-2) % Lymph # (Auto) 1.3 (1.2-4.9) X10*3/uL [place] # (Auto) 0.9 (0.1-1.2) X10*3/uL Eos # (Auto) 0.2 (0.0-0.4) X10*3/uL Baso # (Auto) 0.1 (0.0-0.2) X10*3/uL Abs Immat Gran (auto) 0.13 H (0.00-0.03) X10*3/uL Absolute Neuts (auto) 7.2 (2.0-8.3) x10*3/uL Absolute Nucleated RBC 0.000 (0.0-0.012) X10*3/uL Nucleated RBC % (auto) 0.0 (0.0-0.2) /100WBC Sodium 142 (135-145) mmol/L Potassium 4.4 (3.3-5.1) mmol/L Chloride 108 (96-108) mmol/L Carbon Dioxide 25 (22-29) mmol/L Anion Gap 13 (12-20) BUN 19 H (9-16) mg/dL Creatinine 1.20 (0.5-1.4) mg/dL Estim Creat Clear Calc 49.0 Estimated GFR 58 Random Glucose 94 (60-115) mg/dL Calcium 9.4 D (8.4-10.2) mg/dL Troponin I High Sens 31.6 D 23.2 (<3.5-35.0) ng/L B-Natriuretic Peptide 82 (<100) pg/mL Independent Interpretation I performed an independent interpretation of an: EKG (sinus with RBBB, no st or twave changes) and Plain X-Ray (severe COPD changes) Independent Historian Clinical information obtained from an independent historian. History obtained from or confirmed by: Spouse () External Record Review External record reviewed: Outpatient record Prescription Management I considered prescription management with: Antibiotic (considered but no infiltrate on xray) Chronic Conditions Patient?s care impacted by: Other (COPD, dementia) Discharge Plan Discharge Clinical Impression: Acute exacerbation of chronic obstructive pulmonary disease Patient Disposition: Home, Self-Care Instructions: COPD (Chronic Obstructive Pulmonary Disease) (ED) Prescriptions: No Action atorvastatin 10 mg Tablet 10 mg PO BEDTIME 30 Days Qty: 30 0RF trazodone 50 mg Tablet 50 mg PO BEDTIME PRN (Reason: Insomnia) 30 Days Qty: 30 0RF quetiapine 100 mg Tablet 100 mg PO BEDTIME 30 Days Qty: 30 0RF Artificial Tears([id number]-[id number]) 1-0.2-0.2 % Drops 1 drp ophthalmic (eye) Q4H PRN (Reason: Dry Eyes) Qty: 15 0RF memantine 5 mg Tablet 5 mg PO BID 30 Days Qty: 60 0RF quetiapine 50 mg Tablet 50 mg PO DAILY 30 Days Qty: 30 0RF melatonin 3 mg Tablet 6 mg PO BEDTIME PRN (Reason: Insomnia) Qty: 60 0RF fluticasone furoate-vilanterol [Breo Ellipta] 100-25 mcg/dose Blister With Device 1 inh inhalation RDAILY Qty: 60 0RF ipratropium-albuterol 0.5 mg-3 mg(2.5 mg base)/3 mL solution for nebulization 3 ml inhalation BID-TID PRN (Reason: wheezing) 30 Days Qty: 60 0RF Rx Instructions: Use TID lisinopril 20 mg tablet 20 mg PO DAILY 30 Days Qty: 30 0RF clopidogrel 75 mg tablet 75 mg PO DAILY 30 Days Qty: 30 0RF aspirin 81 mg tablet,delayed release (DR/EC) 81 mg PO DAILY 30 Days Qty: 30 0RF albuterol sulfate [ProAir HFA] 90 mcg/actuation HFA aerosol inhaler 2 puff inhalation Q6H PRN (Reason: shortness of breath or wheezing) 30 Days Qty: 1 0RF Spiriva Respimat 2.5 mcg/actuation mist 2 puff inhalation DAILY Qty: 4 0RF Referrals: Yamila Rivera, MEDICAL DIR [Primary Care Provider] - 5 days
[2023-04-19 07:49] VITALS: BP 136/82; PULSE 74; O2SAT 97
[2023-04-19 07:53] VITALS: BP 135/76; PULSE 70; RESP 25; TEMP 36.9; O2SAT 98; BMI 23.9
[2023-04-19 08:18] LABS: MANUAL DIFF FLAG NO
[2023-04-19 08:22] LABS: Basophils Absolute Auto 0.1 X10*3/uL (0.0-0.2); Basophils Percent Auto 0.9 % (0-2); Eosinophils Absolute Auto 0.2 X10*3/uL (0.0-0.4); Hemoglobin 15.2 g/dl (14.0-18.0); Imm Gran Abs Auto 0.13 X10*3/uL (0.00-0.03); Imm Gran Pct Auto 1.3 % (0.0-0.4); Lymphocytes Absolute Auto 1.3 X10*3/uL (1.2-4.9); Lymphocytes Percent Auto 13.2 % (20-40); Mean Corpuscular Hemoglobin 32.1 pg (27.0-33.0); Mean Corpuscular Volume 97.3 fL (80.0-98.0); Mean Platelet Volume 10.9 fL (9.4-12.4); Monocytes Absolute Auto 0.9 X10*3/uL (0.1-1.2); Neutrophils Absolute Auto 7.2 x10*3/uL (2.0-8.3); Neutrophils Percent Auto 73.6 % (45-73); Platelet Count 213 X10*3/uL (160-400); Red Blood Count 4.73 X10*6/uL (4.60-5.80); Red Cell Distribution Width 12.6 % (11.0-16.0); White Blood Count 9.7 X10*3/uL (4.8-10.8)
[2023-04-19 08:25] VITALS: BP 115/68; PULSE 70; RESP 12; O2SAT 97
[2023-04-19 08:35] LABS: Anion Gap 13 (12-20); Blood Urea Nitrogen 19 mg/dL (9-16); Calcium 9.4 mg/dL (8.4-10.2); Carbon Dioxide 25 mmol/L (22-29); Chloride 108 mmol/L (96-108); Estimated Glomerular Filt Rate 58; Glucose Random 94 mg/dL (60-115); Potassium 4.4 mmol/L (3.3-5.1); Sodium 142 mmol/L (135-145)
[2023-04-19 08:43] LABS: B Type Natriuretic Peptide 82 pg/mL (<100); Troponin-I High Sensitivity 31.6 ng/L (<3.5-35.0)
[2023-04-19] MEDS: Albuterol/Iprat 2.5/0.5MG 3 ML AMPUL.NEB INHALE (09:07)
[2023-04-19 09:10] VITALS: PULSE 67; RESP 14; O2SAT 97
[2023-04-19 10:24] VITALS: BP 120/60; PULSE 69; RESP 25; O2SAT 98
[2023-04-19 11:11] LABS: Troponin-I High Sensitivity 23.2 ng/L (<3.5-35.0)
== END 2023-04-19 12:30 | disposition home or self-care (01) ==
PROVIDERS: Emergency Provider Emergency Medicine; PCP Nurse Practitioner Family
DX: J44.1 Chronic obstructive pulmonary disease with (acute) exacerbation (principal); R07.89 Other chest pain; R06.02 Shortness of breath; Z87.891 Personal history of nicotine dependence; Z79.899 Other long term (current) drug therapy
CPT/HCPCS: 36415; 71045; 80048; 83880; 84484; 85025; 93005; 94640; 99284; 99285

== ENCOUNTER 2023-06-07 13:24 | Outpatient (AMB) | payer MEDICARE, SELFPAY ==
[2023-06-07 13:44] VITALS: BP 110/70; PULSE 78; O2SAT 98; BMI 23.1
--- NOTE | 2023-06-07 13:44 | A.OFFVIS_ITS ---
Intake Vital Signs 06/07/23 13:44 Height 5 ft 10 in Weight 160 lb 14.999 oz BMI 23.1 BP 110/70 Blood Pressure Location Lt brachial Position Sitting Pulse 78 Pulse Source Pulse Oximeter Pulse Oximetry (%) 98 Oxygen Delivery Method Room Air Intake Visit Reasons: Emphysema Intake Note: pt is here for follow up and had hopsital stay, and says he is okay, using oxygen at night, after supper and before bed seems to cause short of breath at that time, his notices he looses his breath. [employer] Required: No Allergies No Known Allergies Allergy (Mild, Verified 06/07/23 14:11) NONE cats dogs ragweed dust pollen Allergy (Unknown, Uncoded 06/07/23 14:11) Unknown Medication List - Last Reconciled 06/07/23 by Cedric Sarabia MD albuterol sulfate 90 mcg/actuation (ProAir HFA) 2 puffs inhalation Q6H PRN 30 days aspirin 81 mg PO DAILY 30 days atorvastatin 10 mg PO BEDTIME 30 days clopidogrel 75 mg PO DAILY 30 days fluticasone furoate-vilanterol 100-25 mcg/dose (Breo Ellipta) 1 inh inhalation RDAILY 30 days ipratropium-albuterol 0.5 mg-3 mg(2.5 mg base)/3 mL 3 mL inhalation BID-TID PRN 30 days lisinopril 20 mg PO DAILY 30 days melatonin 6 mg (2 x 3 mg) PO BEDTIME PRN memantine 5 mg PO BID 30 days peg [id number] 1-0.2-0.2 % (Artificial Tears ([id number])) 1 drp ophthalmic (eye) Q4H PRN quetiapine 100 mg PO BEDTIME 30 days quetiapine 50 mg PO DAILY 30 days tiotropium bromide 2.5 mcg/actuation (Spiriva Respimat) 2 puffs inhalation DAILY trazodone 50 mg PO BEDTIME PRN 30 days Do you need a note to return to daycare/school/sports/work: No HPI Emphysema HPI Details 82 years old very pleasant gentleman is here for follow-up for his COPD. In February he was admitted to the hospital for a few days to treat acute exacerbation of his COPD. Luis has been doing well. Has had no further attacks of increased shortness of breath. Does have some cough in the morning hours with the sticky phlegm. He has been using Spiriva Respimat 2 inhalations daily and also is on Breo-100 . 1 inhalation daily in the morning He does have a nebulizer at home and uses albuterol-ipratropium solution about once or twice a day. He has oxygen at home uses 2 L/minute at night, Also uses p.r.n. during the daytime. He does have portable cylinders but hardly uses when he goes outdoors. [facility] Medical History (Updated 06/07/23 @ 14:20 by Cedric Sarabia MD) Hypoxemia COPD (chronic obstructive pulmonary disease) Pulmonary emphysema Osteopenia Hyperparathyroidism Osteoporosis Vitamin D deficiency Multinodular thyroid Surgical History Hx of prostatectomy Hx of hernia repair Family History Father No problems noted. Mother No problems noted. Social History Household Members: Spouse Household Members Other:: 1 Housing: House Do you presently have visiting nurse or other home services: No Alcohol intake: never Comment: sitter at bedside Patient Tobacco Use Status: Former Tobacco user Quit Date: 35 years Advance Directives Date on File: 02/28/23 service: No Sexual orientation: Straight/Heterosexual Review of Systems Const All systems reviewed & are unremarkable except as noted in HPI and below Reports weakness (MINIMAL RESIDUAL WEAKNESS OF THE LEFT UPPER EXTREMITY) Eyes Reports no additional complaints ENT Reports no additional complaints Card Denies chest pain, Denies irregular heart rhythm, Denies leg edema and Reports dyspnea on exertion (MILD) Resp Reports as per HPI and Reports dyspnea on exertion (MILD) GI Reports no additional complaints Reports no additional complaints Musc Reports abnormal gait (HE USES WALKER,) and Reports back pain Skin/Breast Reports rash (HE HAS HAD NONSPECIFIC ERYTHEMATOUS RASH ON HIS BACK ) Neuro Reports abnormal gait (HE USES WALKER,) and Reports weakness (MINIMAL RESIDUAL WEAKNESS OF THE LEFT UPPER EXTREMITY) Psych Reports anxiety (MILD, HAS TO USE ALPRAZOLAM ONCE IN A WHILE) Endo Reports no additional complaints Isidoro/Lymph Reports no additional complaints Aller/Immun Reports no additional complaints Physical Exam Vital Signs: Last Vital Signs Pulse 78 06/07/23 13:44 BP 110/70 06/07/23 13:44 Pulse Ox 98 06/07/23 13:44 Oxygen Delivery Method Room Air 06/07/23 13:44 BMI result Body Mass Index 23.1 Const General: comfortable, no acute distress, alert and awake Orientation/consciousness: patient oriented x3 HEENT Head: Yes normal to inspection General nose exam: No nasal polyps present and No nasal discharge present Face and sinus: Yes sinuses nontender Mouth: oropharynx normal Throat: Yes posterior oropharynx normal Eyes General: appearance normal, both eyes and all related structures Neck Neck: Yes normal visual inspection, Yes no lymphadenopathy, Yes trachea midline and Yes no JVD Thyroid: Thyroid normal Chest Chest palpation & inspection: normal inspection of the chest, normal palpation of entire chest wall and no tenderness Resp Other: PERCUSSION NOTE IS HYPER-RESONANT, BREATH SOUNDS ARE DISTANT WITH PROLONGED EXPIRATORY PHASE BUT EQUAL ON BOTH SIDES. NO AUDIBLE WHEEZES OR CREPITATIONS. Cardio Palpation: normal PMI Rate: regular rate Rhythm: regular rhythm Heart sounds: no gallops and no murmurs GI Palpation (GI): Soft to palpation, nontender, No hepatosplenomegaly present and no masses Auscultation: normal bowel sounds Back/Spine/Pelvis Thoracic/Lumbar Spine: thoracic and lumbar spine normal to inspection and thoraco-lumbar ROM limited Skin General skin exam: no rashes or lesions noted and other (HE HAS MULTIPLE ERYTHEMATOUS DISC I ADDED AREAS ON THE WHOLE BACK) Neuro General: patient oriented x3, No gait normal (GAIT IMPAIRED DUE TO BACK PAIN, AND HE USES WALKER) and no focal motor deficits Cranial nerves: Yes CN's II-XII intact bilaterally Extrem General: Yes normal to inspection, Yes no clubbing, cyanosis or edema and Yes no calf tenderness Psych Appearance: grossly normal and well kempt Speech and movement: Normal speech and movement present Assessment & Plan Assessment & Plan (1) Hypoxemia: Comment: This gentleman has nocturnal hypoxemia as well as exercise induced hypoxemia. He does have O2 concentrator and portable cylinders at home Code(s): R09.02 - Hypoxemia Plan: Advise that he should use O2 2 L/minute at night 2-3 L/minute during the daytime p.r.n.. And with the portable unit when he is going outdoors. (2) COPD (chronic obstructive pulmonary disease): Comment: He is not have rather severe degree of obstructive airway disorder. Was treated for an acute exacerbation in February of this year. Now he is relatively stable. Code(s): J44.9 - Chronic obstructive pulmonary disease, unspecified Plan: TX: SPIRIVA RESPIMAT 2.5 MG 2 PER MIN INHALATION DAILY. DUONEB UPDRAFTS Q 6 HOURS P.R.N., AT LEAST TWICE A DAY. PROAIR 2 PUFFS Q 4-6 HOURS P.R.N. WHEN OUTDOORS Coding Level of Care Code Est Pt Level 3 (92799) Diagnoses Hypoxemia R09.02 COPD (chronic obstructive pulmonary disease) J44.9
== END 2023-06-07 14:12 | disposition home or self-care (01) ==
PROVIDERS: PCP Nurse Practitioner Family; Visit Provider Internal Medicine
DX: R09.02 Hypoxemia (principal); J44.9 Chronic obstructive pulmonary disease, unspecified
CPT/HCPCS: 99213

== ENCOUNTER → 2023-06-07 13:24 | Outpatient (BNVA) | payer MEDICARE, SELFPAY | PROVIDERS: PCP Nurse Practitioner Family; Visit Provider Internal Medicine | DX: J44.9 Chronic obstructive pulmonary disease, unspecified (principal); R09.02 Hypoxemia | CPT/HCPCS: 99212 ==

== ENCOUNTER 2023-08-19 12:52 | Inpatient (IN) | payer MEDICARE, SELFPAY ==
--- NOTE | ~2023-08-19 | CT_ITS ---
EXAMINATION: CT HEAD WITHOUT CONTRAST CT CERVICAL SPINE WITHOUT CONTRAST CLINICAL INFORMATION: 83 years old-year-old male with history of unwitnessed fall COMPARISON: February 1923 TECHNIQUE: CT of the head and cervical spine were performed without intravenous contrast. Multiplanar reformats were rendered and reviewed. This CT examination was performed using dose optimization techniques as appropriate, variously including the following: *Automated exposure control *Adjustment of mA and/or kV according to patient size (this includes techniques or standardized protocols for targeted exams where dose is matched to indication/reason for exam; i.e. extremities or head) *Use of iterative reconstruction technique DLP: 1137 mGy-cm. FINDINGS: CT head: No intracranial hemorrhage, large infarction, or mass lesion is seen. No extra-axial collection is appreciated. The ventricles are normal in size and configuration without evidence of hydrocephalus. The visualized paranasal sinuses revealed diffuse mucosal thickening, mucous retention cysts in maxillary sinuses and mastoid air cells are clear are well aerated . CT cervical spine: The cervical alignment is normal. The craniocervical junction is normal. The vertebral body heights are maintained. No cervical spine fracture is seen. There are multilevel degenerative changes in cervical spine with marginal spurring can discs narrowing. Soft tissues are unremarkable. The partially imaged lung apices revealed layering of right-sided pleural effusion CT/CT head/brain wo IV con IMPRESSION: CT HEAD: 1. No acute intracranial finding. 2. Chronic sinus disease. CT CERVICAL SPINE: 1. No cervical spine fracture or traumatic malalignment identified. 2. Multilevel degenerative changes. 3. Layering right-sided pleural effusion.
--- NOTE | ~2023-08-19 | CT_ITS ---
EXAMINATION: CT CHEST WITHOUT CONTRAST CLINICAL INFORMATION: Pneumonia and pleural effusion. COMPARISON: Previous chest CT June 2022 and chest x-ray from earlier the same day. TECHNIQUE: Multidetector volumetric CT imaging of the chest was done. Axial MIP volume rendering provided. Sagittal and coronal reformatted images were obtained. This CT examination was performed using dose optimization techniques as appropriate, variously including the following: Automated exposure control. Adjustment of mA and/or kV according to patient size (this includes techniques or standardized protocols for targeted exams where dose is matched to indication/reason for exam; i.e. extremities or head). Use of iterative reconstruction technique. DLP: 337 mGy-cm. FINDINGS: LUNGS: There is slight increased volume loss to the right hemithorax with shift of the central mediastinal structures to the right. There is right lower lobe atelectasis/consolidation. There is minimal atelectasis/consolidation in the lateral segment of the right middle lobe. Left lung is clear. MEDIASTINUM: Tortuous upper normal-size thoracic aorta. Upper normal heart size. Mild coronary artery calcification. Mediastinal lymphadenopathy. Largest lymph node is an upper normal-size AP window lymph node measuring 1 cm. Difficult to evaluate hilar adenopathy without contrast. CORONARY ARTERY CALCIFICATION: Moderate. PLEURA: Large right and small left pleural effusions. AXILLA: No lymphadenopathy. UPPER ABDOMEN: Bilateral renal cysts, similar to prior exam. No imaging follow-up recommended. OSSEOUS STRUCTURES: Severe degenerative changes of the spine. Old, mild L1 vertebral body compression fracture. CT/CT chest wo IV con IMPRESSION: Large right pleural effusion and atelectasis/consolidation of the right lower lobe and part of the lateral segment of the right middle lobe. Small left pleural effusion. Fleischner guidelines were followed.
--- NOTE | ~2023-08-19 | XR_ITS ---
EXAMINATION: XR CHEST CLINICAL INFORMATION: Follow up pneumothorax. COMPARISON: 08/23/2023. TECHNIQUE: Frontal view of the chest was obtained. FINDINGS: Persistent small right apical pneumothorax. Stable cardiomediastinal silhouette. Redemonstration of right mid to lower lung opacities with mild volume loss of the right lung. Persistent mild left costophrenic angle blunting. XR/XR chest 1V IMPRESSION: 1. Persistent small right apical pneumothorax. 2. Redemonstration of right mid to lower lung opacities with mild volume loss of the right lung.
--- NOTE | ~2023-08-19 | CT_ITS ---
EXAMINATION: CT HEAD WITHOUT CONTRAST CT CERVICAL SPINE WITHOUT CONTRAST CLINICAL INFORMATION: 83 years old-year-old male with history of unwitnessed fall COMPARISON: February 1923 TECHNIQUE: CT of the head and cervical spine were performed without intravenous contrast. Multiplanar reformats were rendered and reviewed. This CT examination was performed using dose optimization techniques as appropriate, variously including the following: *Automated exposure control *Adjustment of mA and/or kV according to patient size (this includes techniques or standardized protocols for targeted exams where dose is matched to indication/reason for exam; i.e. extremities or head) *Use of iterative reconstruction technique DLP: 1137 mGy-cm. FINDINGS: CT head: No intracranial hemorrhage, large infarction, or mass lesion is seen. No extra-axial collection is appreciated. The ventricles are normal in size and configuration without evidence of hydrocephalus. The visualized paranasal sinuses revealed diffuse mucosal thickening, mucous retention cysts in maxillary sinuses and mastoid air cells are clear are well aerated . CT cervical spine: The cervical alignment is normal. The craniocervical junction is normal. The vertebral body heights are maintained. No cervical spine fracture is seen. There are multilevel degenerative changes in cervical spine with marginal spurring can discs narrowing. Soft tissues are unremarkable. The partially imaged lung apices revealed layering of right-sided pleural effusion CT/CT cervical spine wo IV con IMPRESSION: CT HEAD: 1. No acute intracranial finding. 2. Chronic sinus disease. CT CERVICAL SPINE: 1. No cervical spine fracture or traumatic malalignment identified. 2. Multilevel degenerative changes. 3. Layering right-sided pleural effusion.
--- NOTE | ~2023-08-19 | US_ITS ---
PROCEDURE: Ultrasound-guided right thoracentesis History: Right pleural effusion Specimen: A sample of pleural fluid was sent for analysis Access: 5 Malaysian Yueh catheter Medications: 10 mL 1% lidocaine TECHNIQUE/FINDINGS Appropriate preprocedural clinical history and imaging studies were reviewed. The patient was brought to the department and placed in the left lateral decubitus position. Ultrasound images of the right thorax were obtained to localize a large pleural effusion. Permanent ultrasound images were saved. Risks and benefits and possible complications were discussed with the patient and his spouse and consent form was signed. An area of the patient's right back was prepped and draped in usual sterile fashion. 10 mL of 1% lidocaine was used to obtain local anesthesia of the skin and deeper tissues. A standard small bore needle was introduced to sample pleural fluid and demonstrate a safe access route. A 5 [place] Yueh catheter was then used to access the pleural cavity. 1300 ml of yellow fluid was removed passively. The catheter was then removed. A dressing was applied. A postprocedure chest x-ray will be performed and will be dictated separately. There were no immediate complications. The procedure was performed by Raimundo Choudhary PA-C and supervised by Dr. Solo US/US thoracentesis Impression: Ultrasound-guided right thoracentesis
--- NOTE | ~2023-08-19 | XR_ITS ---
EXAMINATION: XR KNEE, RIGHT CLINICAL INFORMATION: Right knee pain. COMPARISON: Knee radiographs dated 07/16/2016. TECHNIQUE: Four views of the right knee. FINDINGS: There is no fracture or dislocation. There is mild medial compartment and narrowing with tiny marginal osteophytes. There is degenerative disease of the patellofemoral joint. There is no joint effusion. There are vascular calcifications. XR/XR knee RT 3V IMPRESSION: No fracture or dislocation. 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
--- NOTE | ~2023-08-19 | XR_ITS ---
EXAMINATION: XR CHEST CLINICAL INFORMATION: Pneumothorax. COMPARISON: Chest x-ray 08/22/2023 TECHNIQUE: Frontal view of the chest was obtained. FINDINGS: Again visualized is a very small right apical pneumothorax without any major change. There is mild emphysema with likely mild loss of right lung volume. There is chronic scarring or atelectasis right lung base. The left lung is expanded and clear. Heart size and pulmonary vascularity is normal. No gross bony abnormality seen. XR/XR chest 1V IMPRESSION: 1. Small right apical pneumothorax without any major change. 2. Mild right lung volume loss with chronic scarring or atelectasis right lung base. 3. Left lung is clear.
--- NOTE | ~2023-08-19 | XR_ITS ---
EXAMINATION: XR CHEST CLINICAL INFORMATION: Follow-up pneumothorax. COMPARISON: 08/24/2023 TECHNIQUE: Frontal view of the chest was obtained. FINDINGS: Minimal residual pneumothorax is not well visualized on this examination due to technical limitations. There is new opacification at the right apex. Stable volume loss in the right hemithorax with persistent opacities in the mid to lower lung zones. Trace left pleural effusion is unchanged. XR/XR chest 1V IMPRESSION: New opacification at the right apex possible fluid.
--- NOTE | ~2023-08-19 | XR_ITS ---
EXAMINATION: XR CHEST CLINICAL INFORMATION: Status post thoracocentesis COMPARISON: 08/19/2023 TECHNIQUE: Frontal view of the chest was obtained. FINDINGS: There is no obvious pleural effusions seen on the current examination linear densities in the right lower lobe most likely due to atelectasis. There is tiny pneumothorax seen along the right lower chest. XR/XR chest 1V IMPRESSION: Resolution of pleural effusion and possibly tiny localized pneumothorax.
--- NOTE | ~2023-08-19 | XR_ITS ---
EXAMINATION: XR CHEST CLINICAL INFORMATION: Follow-up for pneumothorax COMPARISON: 08/20/2023 TECHNIQUE: Frontal view of the chest was obtained. FINDINGS: There is trace of right apical pneumothorax. There are changes of emphysema and there are patchy right lower lobe airspace disease. Cardiomediastinal silhouette is prominent. XR/XR chest 1V IMPRESSION: Trace of right apical pneumothorax.
--- NOTE | ~2023-08-19 | XR_ITS ---
EXAMINATION: XR LUMBOSACRAL SPINE CLINICAL INFORMATION: Neck pain following trauma COMPARISON: None available. TECHNIQUE: Three views of the lumbosacral spine. FINDINGS: There is exaggerated lumbar lordosis with grade 1 anterior listhesis of L5 over S1, facets arthropathy at the level of L4-L5 and L5-S1 and marginal spurring at the endplates of T12-L2. There is wedge-shaped deformity of L1 vertebral body, most likely chronic, being present on CT scan from 07/02/2022 XR/XR lumbar spine 2-3V IMPRESSION: No acute fractures seen. Grade 1 anterolisthesis of L5 over S1 and facets arthropathy at the level of L5-S1. Chronic wedge-shaped deformity of L1
--- NOTE | ~2023-08-19 | XR_ITS ---
EXAMINATION: XR CHEST CLINICAL INFORMATION: Covid positive. Short of breath. COMPARISON: None available. TECHNIQUE: Frontal view of the chest was obtained. FINDINGS: The lungs are expanded with patchy opacity right lung base likely effusion with underlying infiltrate/atelectasis. The right upper lung and left lung is expanded with mild loss of right lung volume. Heart size is grossly unremarkable. The aorta is ectatic. No gross bony abnormality seen. XR/XR chest 1V IMPRESSION: 1. Right lower lobe infiltrate/atelectasis with small right pleural effusion. 2. Ectatic thoracic aorta.
--- NOTE | 2023-08-19 13:05 | ED.SOB ---
HPI - SOB/Dyspnea General Chief Complaint: Dyspnea Stated Complaint: SOB PER EMS Time Seen by Provider: 08/19/23 12:57 Source: patient and EMS Mode of arrival: EMS Limitations: no limitations History of Present Illness HPI Narrative: Patients has had covid this week, he was feeling weak and short of breath tested positive for COVID, EMS found him to be 88% but his O2 was kinked MD elicited complaint: shortness of breath and cough Pertinent past history: COPD Onset (ago): hour(s) Context: recent illness Timing: constant Severity: moderate Related Data Previous Rx's Medication Instructions Recorded albuterol sulfate 90 mcg/actuation 2 puff inhalation Q6H PRN 03/30/23 aerosol inhaler (ProAir HFA) shortness of breath or wheezing 30 days #1 inhaler aspirin 81 mg tablet,delayed 81 mg PO DAILY 30 days #30 tabs 03/30/23 release atorvastatin 10 mg tablet 10 mg PO BEDTIME 30 days #30 tabs 03/30/23 clopidogrel 75 mg tablet 75 mg PO DAILY 30 days #30 tabs 03/30/23 lisinopril 20 mg tablet 20 mg PO DAILY 30 days #30 tabs 03/30/23 melatonin 3 mg tablet 6 mg (2 x 3 mg) PO BEDTIME PRN 03/30/23 Insomnia #60 tabs memantine 5 mg tablet 5 mg PO BID 30 days #60 tabs 03/30/23 peg [id number] 1 1 drp ophthalmic (eye) Q4H PRN Dry 03/30/23 %-0.2 %-0.2 % eye drops Eyes #15 mL (Artificial Tears ([id number])) quetiapine 100 mg tablet 100 mg PO BEDTIME 30 days #30 tabs 03/30/23 quetiapine 50 mg tablet 50 mg PO DAILY 30 days #30 tabs 03/30/23 tiotropium bromide 2.5 2 puff inhalation DAILY COPD #4 03/30/23 mcg/actuation mist for inhalation grams (Spiriva Respimat) trazodone 50 mg tablet 50 mg PO BEDTIME PRN Insomnia 30 03/30/23 days #30 tabs fluticasone furoate 100 1 inh inhalation RDAILY 30 days 04/21/23 mcg-vilanterol 25 mcg/dose #60 ea inhalation powder (Breo Ellipta) ipratropium 0.5 mg-albuterol 3 mg 3 ml inhalation BID-TID PRN 07/28/23 (2.5 mg base)/3 mL nebulization wheezing 90 days #180 mL soln Allergies Allergy/AdvReac Type Severity Reaction Status Date / Time No Known Allergies Allergy Mild NONE Verified 08/19/23 14:17 cats dogs ragweed dust pollen Allergy Unknown Unknown Uncoded 08/19/23 14:17 Review of Systems Review of Systems: Yes all other systems are reviewed and are negative Neurologic: Denies Sensory deficit (Neuro) [facility] Past Medical History Medical History Hypoxemia COPD (chronic obstructive pulmonary disease) Pulmonary emphysema Osteopenia Hyperparathyroidism Osteoporosis Vitamin D deficiency Multinodular thyroid Surgical History Hx of prostatectomy Hx of hernia repair Family History Family History Father No problems noted. Mother No problems noted. Social History Social History Household Members: Spouse Household Members Other:: 1 Housing: House Do you presently have visiting nurse or other home services: No Alcohol intake: never Comment: sitter at bedside Patient Tobacco Use Status: Former Tobacco user Quit Date: 35 years Advance Directives: Yes Advance Directives on File: Yes Advance Directives Date on File: 02/28/23 service: No Sexual orientation: Straight/Heterosexual Physical Exam Vital Signs: Vital Signs: Last Vital Signs Temp 98.5 F 08/19/23 15:00 Pulse 79 08/19/23 15:00 Resp 24 H 08/19/23 15:00 BP 130/88 08/19/23 15:00 Pulse Ox 99 08/19/23 15:00 O2 Del Method Nasal Cannula 08/19/23 15:00 O2 Flow Rate 3 08/19/23 15:00 Oxygen Flow Rate 3 08/19/23 14:16 BMI result Body Mass Index 25.3 Const: Other: anxious, coughing Nutritional Appearance: average body habitus Orientation/consciousness: oriented to person and patient oriented x3 Limitations: no limitations HEENT: Head: Yes normal to inspection Ears: external ears normal General nose exam: Normal external nose present Mouth: Normal oral and palatal mucosa present and oropharynx normal Throat: Yes posterior oropharynx normal Eyes: General: appearance normal, both eyes and all related structures Neck: Other: supple Neck: Yes normal visual inspection Chest: Chest palpation & inspection: normal inspection of the chest Resp: Other: diffuse rhonchi Auscultation: clear to auscultation bilaterally Cardio: Jugular venous distension: no JVD Rate: regular rate Rhythm: regular rhythm Heart sounds: S1 normal heart sound present and S2 normal heart sound present GI: Inspection: Yes normal to inspection Palpation (GI): Soft to palpation, nontender and No hepatosplenomegaly present Auscultation: normal bowel sounds : General: Yes no CVA tenderness Back/Spine/Pelvis: Back: no CVA tenderness Skin: General skin exam: no rashes or lesions noted Neuro: General: oriented to person and patient oriented x3 Cranial nerves: Yes CN's II-XII intact bilaterally Motor exam (neuro): 5/5 motor strength present throughout Sensory Exam: No Sensory deficit (Neuro) Extrem: General: Yes normal to inspection Psych: Appearance: grossly normal Course Reevaluation(s) Reevaluation #1: patient with COVID and right sided pneumonia will admit Time: 15:18 Medications Administered Discontinued Medications Generic Name Dose Route Start Last Admin Trade Name Freq PRN Reason Stop Dose Admin Ceftriaxone Sodium 1 gm/ 50 mls @ 100 mls/hr 08/19/23 13:56 08/19/23 14:58 Sodium Chloride IV 08/19/23 14:25 100 mls/hr ONCE ONE Administration Medical Decision Making Differential Diagnosis Differential Diagnoses: The differential diagnosis associated with the presentation includes (COVID, pneumonia, copd exacerbation) Admission/Observation Consideration of admission/observation: Escalation of care including admission/observation considered (upon arrival patient considered for admission) Consult Healthcare Provider Management of the patient was discussed with: Hospitalist Lab Data 08/19/23 13:51 08/19/23 13:51 Labs: Lab Results 08/19/23 08/19/23 Range/Units 13:48 13:51 WBC 7.4 (4.8-10.8) X10*3/uL RBC 4.09 L (4.60-5.80) X10*6/uL Hgb 13.1 L (14.0-18.0) g/dl Hct 40.4 L (42.0-52.0) % MCV 98.8 H (80.0-98.0) fL MCH 32.0 (27.0-33.0) pg MCHC 32.4 (31.0-36.0) g/dl RDW 12.4 (11.0-16.0) % Plt Count 162 (160-400) X10*3/uL MPV 11.4 (9.4-12.4) fL Immature Gran % (Auto) 0.4 (0.0-0.4) % Neut % (Auto) 73.3 H (45-73) % Lymph % (Auto) 10.6 L (20-40) % [place] % (Auto) 14.7 H (2-11) % Eos % (Auto) 0.5 (0-4) % Baso % (Auto) 0.5 (0-2) % Lymph # (Auto) 0.8 L (1.2-4.9) X10*3/uL [place] # (Auto) 1.1 (0.1-1.2) X10*3/uL Eos # (Auto) 0.0 (0.0-0.4) X10*3/uL Baso # (Auto) 0.0 (0.0-0.2) X10*3/uL Abs Immat Gran (auto) 0.03 (0.00-0.03) X10*3/uL Absolute Neuts (auto) 5.4 (2.0-8.3) x10*3/uL Absolute Nucleated RBC 0.000 (0.0-0.012) X10*3/uL Nucleated RBC % (auto) 0.0 (0.0-0.2) /100WBC Sodium 143 (135-145) mmol/L Potassium 3.1 L (3.3-5.1) mmol/L Chloride 102 (96-108) mmol/L Carbon Dioxide 31 H (22-29) mmol/L Anion Gap 13 (12-20) BUN 16 (9-16) mg/dL Creatinine 0.99 (0.5-1.4) mg/dL Estim Creat Clear Calc TNP Estimated GFR > 60 Random Glucose 97 (60-115) mg/dL Calcium 8.6 D (8.4-10.2) mg/dL Influenza Type A (PCR) NEGATIVE (Negative) Influenza Type B (PCR) NEGATIVE (Negative) RSV RNA Qual (PCR) NEGATIVE (Negative) SARS-CoV-2 RNA (RT-PCR) POSITIVE A (Negative) Independent Interpretation I performed an independent interpretation of an: Plain X-Ray (right sided infiltrate) Independent Historian Clinical information obtained from an independent historian. History obtained from or confirmed by: EMS External Record Review External record reviewed: Prior outpatient labs Chronic Conditions Patient?s care impacted by: Other (COPD) Discharge Plan Discharge Clinical Impression: COPD (chronic obstructive pulmonary disease), Pneumonia, COVID-19 Patient Disposition: Admitted As Inpatient Prescriptions: No Action fluticasone furoate-vilanterol [Breo Ellipta] 100-25 mcg/dose blister with device 1 inh inhalation RDAILY 30 Days Qty: 60 5RF ipratropium-albuterol 0.5 mg-3 mg(2.5 mg base)/3 mL solution for nebulization 3 ml inhalation BID-TID PRN (Reason: wheezing) 90 Days Qty: 180 3RF Rx Instructions: Use TID atorvastatin 10 mg Tablet 10 mg PO BEDTIME 30 Days Qty: 30 0RF trazodone 50 mg Tablet 50 mg PO BEDTIME PRN (Reason: Insomnia) 30 Days Qty: 30 0RF quetiapine 100 mg Tablet 100 mg PO BEDTIME 30 Days Qty: 30 0RF Artificial Tears([id number]) 1-0.2-0.2 % Drops 1 drp ophthalmic (eye) Q4H PRN (Reason: Dry Eyes) Qty: 15 0RF memantine 5 mg Tablet 5 mg PO BID 30 Days Qty: 60 0RF quetiapine 50 mg Tablet 50 mg PO DAILY 30 Days Qty: 30 0RF melatonin 3 mg Tablet 6 mg PO BEDTIME PRN (Reason: Insomnia) Qty: 60 0RF lisinopril 20 mg tablet 20 mg PO DAILY 30 Days Qty: 30 0RF clopidogrel 75 mg tablet 75 mg PO DAILY 30 Days Qty: 30 0RF aspirin 81 mg tablet,delayed release (DR/EC) 81 mg PO DAILY 30 Days Qty: 30 0RF albuterol sulfate [ProAir HFA] 90 mcg/actuation HFA aerosol inhaler 2 puff inhalation Q6H PRN (Reason: shortness of breath or wheezing) 30 Days Qty: 1 0RF Spiriva Respimat 2.5 mcg/actuation mist 2 puff inhalation DAILY Qty: 4 0RF
[2023-08-19 13:11] VITALS: BP 150/90; PULSE 88; O2SAT 96
[2023-08-19 13:58] LABS: MANUAL DIFF FLAG NO
[2023-08-19 14:12] LABS: Anion Gap 13 (12-20); Basophils Percent Auto 0.5 % (0-2); Blood Urea Nitrogen 16 mg/dL (9-16); Calcium 8.6 mg/dL (8.4-10.2); Carbon Dioxide 31 mmol/L (22-29); Chloride 102 mmol/L (96-108); Eosinophils Percent Auto 0.5 % (0-4); Estimated Glomerular Filt Rate > 60; Glucose Random 97 mg/dL (60-115); Hematocrit 40.4 % (42.0-52.0); Hemoglobin 13.1 g/dl (14.0-18.0); Imm Gran Abs Auto 0.03 X10*3/uL (0.00-0.03); Imm Gran Pct Auto 0.4 % (0.0-0.4); Lymphocytes Absolute Auto 0.8 X10*3/uL (1.2-4.9); Lymphocytes Percent Auto 10.6 % (20-40); Mean Corpuscular HGB Conc 32.4 g/dl (31.0-36.0); Mean Corpuscular Volume 98.8 fL (80.0-98.0); Mean Platelet Volume 11.4 fL (9.4-12.4); Monocytes Absolute Auto 1.1 X10*3/uL (0.1-1.2); Monocytes Percent Auto 14.7 % (2-11); Neutrophils Absolute Auto 5.4 x10*3/uL (2.0-8.3); Neutrophils Percent Auto 73.3 % (45-73); Platelet Count 162 X10*3/uL (160-400); Potassium 3.1 mmol/L (3.3-5.1); Red Blood Count 4.09 X10*6/uL (4.60-5.80); Red Cell Distribution Width 12.4 % (11.0-16.0); Sodium 143 mmol/L (135-145); White Blood Count 7.4 X10*3/uL (4.8-10.8)
[2023-08-19 14:16] VITALS: BP 133/85; PULSE 77; RESP 28; O2SAT 100; BMI 25.3
[2023-08-19 14:35] LABS: Influenza A PCR NEGATIVE (Negative); Influenza B PCR NEGATIVE (Negative); Resp Syncy Virus RNA Qual PCR NEGATIVE (Negative); SARS COV2 PCR INHOUSE POSITIVE (Negative)
[2023-08-19] MEDS: cefTRIAXone sodium 1 GM in 0.9 % Sodium Chloride 50 ML IV (14:58)
[2023-08-19 15:00] VITALS: BP 130/88; PULSE 79; RESP 24; TEMP 36.9; O2SAT 99
[2023-08-19] MEDS: Azithromycin 500 MG in 0.9 % Sodium Chloride 250 ML 125 MG IV (15:40)
--- NOTE | 2023-08-19 16:43 | PM.IMHP ---
History of Present Illness Date of Service: 08/19/23 Attending physician on admission: Natividad Frausto Chief Complaint: SOB Pt is an 83-year-old male with a PMH significant for COPD on baseline 3L of home O2, HLD/CAD, unspecified dementia,? who presents to the ED for evaluation of increasing SOB and difficulty breathing after testing positive for COVID this morning. Pt with unspecified dementia at baseline, pt is a rather poor historian. Pt's is at baseline who helps supplement HPI. states she tested positive for COVID at the end of last week. Pt himself began feeling ill earlier this week with productive cough, difficulty breathing, and increasing SOB. Denies chest pain/pressure, palpitations. No fever or chills. Has not been requiring increased supplemental O2 requirements. In the ED pt and elevated temperature of 100.4 degrees, tachypneic up to 28, and satting at 100% on chronic 3 L NC. Labs were significant for testing positive for COVID, H&H 13.1/40.4, potassium 3.1, and BNP 182. Procalcitonin 0.05. CXR showed right lower lobe infiltrate/atelectasis with small right pleural effusion an ectatic thoracic aorta. Pt was treated with ceftriaxone and azithromycin. Pt will be admitted to the hospital for treatment and further evaluation of COVID with superimposed pneumonia. Review of Systems Review of Systems: SOB, BUSTAMANTE Productive cough LLE Denies fever, chills, N/V/D, abd pain No chest pain/pressure, palpitations [facility] Medical History Hypoxemia COPD (chronic obstructive pulmonary disease) Pulmonary emphysema Osteopenia Hyperparathyroidism Osteoporosis Vitamin D deficiency Multinodular thyroid Family History Father No problems noted. Mother No problems noted. Surgical History Hx of prostatectomy Hx of hernia repair Social History Household Members: Family Household Members Other:: 2 Housing: House Do you presently have visiting nurse or other home services: Yes Alcohol intake: never Comment: sitter at bedside Patient Tobacco Use Status: Former Tobacco user Quit Date: 35 years Tobacco use type: Cigarette Smoked in Last 30 Days: No Use of substances other than those prescribed or required for medical reasons: No Currently Displaying Signs/Symptoms of Drug Intoxication Withdrawal: No Any prior treatment program specific to substance use: No Have you been hit, kicked, punched, or otherwise hurt by someone within the past year? If so, by whom?: No Do you feel safe in your current relationship?: Yes Is there a partner from a previous relationship who is making you feel unsafe now?: No Are you made to feel afraid or neglected: No Advance Directives: Yes Advance Directives on File: Yes Advance Directives Date on File: 02/28/23 Do you have thoughts of harming others: None Do you have a plan to hurt others: No Plan Recently lost weight without trying: No Eating poorly because of decreased appetite: No Nutrition Risks: No Nutritional Risk Poor oral hygiene: No service: No Sexual orientation: Straight/Heterosexual Meds Allergies Allergy/AdvReac Type Severity Reaction Status Date / Time No Known Allergies Allergy Mild NONE Verified 08/19/23 14:17 cats dogs ragweed dust pollen Allergy Unknown Unknown Uncoded 08/19/23 14:17 Home Medications Medication Instructions Recorded Confirmed Last Taken Type ipratropium 0.5 mg-albuterol 3 mg 3 ml inhalation BID wheezing 08/19/23 08/19/23 08/19/23 History (2.5 mg base)/3 mL nebulization soln ipratropium 0.5 mg-albuterol 3 mg 3 ml inhalation Q4-6H PRN wheezing 08/19/23 08/19/23 Unknown History (2.5 mg base)/3 mL nebulization soln trazodone 50 mg tablet 50 mg PO BEDTIME PRN Insomnia 08/20/23 08/20/23 Unknown History Physical Exam Vital Signs and Narrative: Vital Signs: Last Vital Signs Temp 98.5 F 08/19/23 15:00 Pulse 79 08/19/23 15:00 Resp 24 H 08/19/23 15:00 BP 130/88 08/19/23 15:00 Pulse Ox 99 08/19/23 15:00 O2 Del Method Nasal Cannula 08/19/23 15:00 O2 Flow Rate 3 08/19/23 15:00 Oxygen Flow Rate 3 08/19/23 14:16 BMI result Body Mass Index 25.3 Constitutional: Alert, in no acute distress. Mental Status: Oriented to person, place and time. Eyes: Pupils are equal, round, and reactive to light. Ear, Nose, and Throat: Oropharynx clear, mucous membranes moist. Ears and nose without deformities. Trachea midline. Respiratory: Mild expiratory rhonchi bilaterally. Diminished in right lower lobe. Cardiovascular: S1, S2 regular. No murmurs, rubs, or gallops. Gastrointestinal: Abdomen soft, non-tender, non-distended. Normal bowel sounds. Neurologic: Cranial nerves II-XII are grossly intact bilaterally. No focal neurological deficits. Moves all extremities spontaneously. Skin: Warm, dry. Musculoskeletal: No cyanosis or clubbing. Extremities: 1+ lower leg edema. Psychiatric: Normal mood and affect, though sometimes has difficulty answering questions. Results Labs 08/19/23 13:51 08/20/23 05:12 Labs: Laboratory Results - last 24 hr 08/19/23 08/19/23 13:48 13:51 MCV 98.8 H MCH 32.0 MCHC 32.4 RDW 12.4 Plt Count 162 MPV 11.4 Immature Gran % (Auto) 0.4 Neut % (Auto) 73.3 H Lymph % (Auto) 10.6 L [place] % (Auto) 14.7 H Eos % (Auto) 0.5 Baso % (Auto) 0.5 Lymph # (Auto) 0.8 L [place] # (Auto) 1.1 Eos # (Auto) 0.0 Baso # (Auto) 0.0 Abs Immat Gran (auto) 0.03 Absolute Neuts (auto) 5.4 Absolute Nucleated RBC 0.000 Nucleated RBC % (auto) 0.0 Anion Gap 13 Estim Creat Clear Calc TNP Estimated GFR > 60 Random Glucose 97 Calcium 8.6 D Influenza Type A (PCR) NEGATIVE Influenza Type B (PCR) NEGATIVE RSV RNA Qual (PCR) NEGATIVE SARS-CoV-2 RNA (RT-PCR) POSITIVE A Imaging Radiologist's Impressions: Impressions Chest X-Ray 08/19/23 13:45 IMPRESSION: 1. Right lower lobe infiltrate/atelectasis with small right pleural effusion. 2. Ectatic thoracic aorta. Assessment and Plan (1) COVID-19: Status: Acute (2) Pneumonia: Status: Acute Plan Pt is an 83-year-old male with a PMH significant for COPD on baseline 3L of home O2, HLD/CAD, HTN, and unspecified dementia who presents to the ED for evaluation of increasing SOB and difficulty breathing after testing positive for COVID this morning. Pt will be admitted to the hospital for treatment and further evaluation of COVID with superimposed pneumonia. COVID infection with likely superimposed pneumonia CXR showing right lower lobe infiltrate/atelectasis with small right pleural effusion Not hypoxic, not requiring increased supplemental O2 Will treat COVID infection symptomatically, no indication for dexamethasone or remdesivir Will treat pneumonia with ceftriaxone and azithromycin, started 08/19/2023 Patient does not meet sepsis criteria: Tachypneic, but no tachycardia, fever, or leukocytosis Will get CT of chest better evaluate for pneumonia Monitor respiratory status Lower leg edema Patient with shortness of breath, right pleural effusion, mildly elevated BNP of 182, and 2+ bilateral pitting lower leg edema Etiology unclear Will trial 20 mg IV Lasix for now Will get CT of chest to better evaluate for pleural effusion Will get echocardiogram Hypokalemia, mild Potassium 3.1 at time presentation Will supplement with oral potassium Follow BMP COPD Not in acute exacerbation Continue home inhalers CAD/HLD Continue statin, aspirin, Plavix HTN Continue lisinopril Unspecified dementia/mood disorder Continue memantine, quetiapine DNR/DNI, confirmed with pt and pt's Attending:?Dr. Frausto DVT Prophylaxis: Lovenox Pt will require a hospitalization of at least two nights for treatment of?COVID infection with superimposed pneumonia. Given patient's significant comorbidities including COPD, CAD, and unspecified dementia, patient is at significant risk for decompensation without hospitalization and administration of IV antibiotics close monitoring of labs and respiratory status. Quality Stroke Does the patient have a stroke diagnosis?: No VTE Prior VTE?: No VTE Risk Level:: Medical - moderate - high VTE Device Contraindication: Treatment Not Indicated VTE Drug Contraindication: N/A - Med Ordered
[2023-08-19 17:38] LABS: B Type Natriuretic Peptide 182 pg/mL (<100)
[2023-08-19 17:44] VITALS: BP 134/83; PULSE 80; RESP 18; TEMP 38; O2SAT 97
[2023-08-19 17:48] LABS: Procalcitonin 0.05 ng/mL
--- NOTE | 2023-08-19 18:01 | MHC.EDTECH ---
patient was assisted unto bedside commode ,but did not do anything ,patient was assisted back in bed .
--- NOTE | 2023-08-19 19:13 | PHA.MEDREC ---
Pharmacy Consult ? Medication Reconciliation Pharmacy has completed the medication reconciliation. Confirmed medication from claim history and over the phone with .
[2023-08-19] MEDS: Potassium Chloride Packet 20 MEQ PACKET 40 MEQ PO (19:21)
[2023-08-19] MEDS: Enoxaparin Sodium 40 MG/0.4 ML SYRINGE SUBCUT (19:21)
[2023-08-19] MEDS: Furosemide 20 MG/2 ML VIAL IVPUSH (19:21)
--- NOTE | 2023-08-19 19:26 | PC.NURSE ---
Assumed care for pt. Pt aox3 resting at the bedside. No apparent distress noted. VSS. O2 sat 100% on 2L NC. Respiratory effort is normal. Pt reports no pain at this time. Medicated as ordered. Food and liquids provided. Pt tolerating well. Call greer within reach. Urinal provided as pt was medicated with lasix. Pending bed assignment. Pt is aware of plan of care. Monitoring is ongoing.
--- NOTE | 2023-08-19 19:34 | PC.NURSE ---
Pt is requesting medication for sleep. [place] text sent to the hospitalist. Hospitalist states will enter new order for this request.
[2023-08-19] MEDS: Melatonin 3 MG TABLET 6 MG PO (20:02)
--- NOTE | 2023-08-19 20:03 | PC.NURSE ---
Pt assisted to the commode for a BM. Pts breathing became labored with exertion. Pt returned to the bedside after BM. Breathing improved. o2 sat 97% on 3L NC
[2023-08-19 22:09] VITALS: BP 139/91; PULSE 81; RESP 17; TEMP 36.9; O2SAT 97
--- NOTE | 2023-08-19 22:10 | MHC.EDTECH ---
Per Patient [place] cath applied.
[2023-08-19] MEDS: 0.9 % Sodium Chloride Flush 3 ML SYRINGE IVFLUSH (23:45)
[2023-08-20] VITALS (8 sets, daily range): BP systolic 112–176; BP diastolic 62–93; PULSE 74–100; RESP 16–22; TEMP 36.5–37.5; O2SAT 91–98; BMI 24.7
--- NOTE | 2023-08-20 01:23 | MHC.EDTECH ---
Patient was assisted to use bedside commode ,was assisted back in bed ,Vitals taken .
--- NOTE | 2023-08-20 03:44 | MHC.EDTECH ---
0400 rounding done ,vitals taken ,900 ml urine empty ,Patien t drank 120 ml fluids ,Patient was assisted to bedside commode ,void and back to bed .
[2023-08-20 06:04] LABS: Anion Gap 14 (12-20); Blood Urea Nitrogen 17 mg/dL (9-16); Calcium 8.4 mg/dL (8.4-10.2); Carbon Dioxide 30 mmol/L (22-29); Chloride 102 mmol/L (96-108); Creatinine Clr Calc Pharmacy 49.3; Estimated Glomerular Filt Rate 60; Glucose Random 89 mg/dL (60-115); Magnesium 1.9 mg/dL (1.6-2.6); Potassium 3.4 mmol/L (3.3-5.1); Sodium 143 mmol/L (135-145)
--- NOTE | 2023-08-20 07:00 | CA_ITS ---
Transthoracic Echocardiogram Patient (Last, First, Middle): Kvng Leyva D Gender: Male Date of : 1940 Age: 83 Procedure Date: 08/20/2023 Procedure Type: Transthoracic [place]ogram [place] [facility] [place]: 177.8 cm Weight: 79.83 kg BSA: 1.98 m2 Heart Rate: bpm BP: 160 / 91 mmHg Club Waiter/Waitress: RADHA Referring MD: Carrol SANCHEZ Housekeeper/Laundry Assistant: Christopher Hodge MD Symptoms: Elevated BNP, LLE, ?CHF Study Quality: Technically Difficult ECG Rhythm: Sinus with extra beats Conclusions: - 1. Technically limited study despite use of contrast agent 2. Normal LV ejection fraction 55-60% with impaired relaxation filling pattern 3. Limited visualization of cardiac valve with normal cardiac valvular Dopplers 4. Mildly elevated right ventricular systolic pressure Findings Procedure Information Contrast agent, definity, is being given per protocol without apparent complications. Left Ventricle Normal left ventricular size, thickness, and systolic function. The visually estimated ejection fraction is between 55-60%. Spectral Doppler is indicative of an impaired relaxation filling pattern. E/E prime ratio is between 8 and 15 consistent with indeterminate filling pressures. Right Ventricle The right ventricle was not well visualized. Atria The left atrium was not well visualized. Interatrial shunt cannot be excluded. The right atrium was not well visualized. Aortic Valve The aortic valve was not well visualized. There is no aortic valve stenosis. There is no aortic valve regurgitation. Mitral Valve The mitral valve was not well visualized. There is trace mitral valve regurgitation. There is no mitral valve stenosis. Pulmonic Valve The pulmonic valve was not well visualized. Tricuspid Valve Likely normal tricuspid valve structure and function. There is trace tricuspid valve regurgitation. Normal right atrial pressure. Mild pulmonary hypertension is present. Great Vessels The aorta was not well visualized. The pulmonary artery was not well visualized. Venous The inferior vena cava is normal in size. Pericardium/Pleural The pericardium was not well visualized. Measurements 2D Linear Measurements IVSd: 1.12 0.6-0.9/0.6-1.0 cm LVIDd: 4.30 3.9-5.3/4.2-5.9 cm LVIDd Index: 2.17 2.4-3.2/2.2-3.1 cm/m2 LVIDs: 2.75 2.0-3.6 cm LVPWd: 1.12 0.7-1.1 cm Ao Root: 3.10 2.1-3.5 cm LA Diam: 3.80 2.7-3.8/3.0-4.0 cm LAIDs Index: 1.92 1.5-2.3 cm/m2 LV Mass: 208.23 67-162/88-224 g LV Mass Index: 105.17 43-95/49-115 g/m2 LVOT Diam: 2.20 3.0+(-)1.3 cm Mitral Valve MV Pk E: 0.61 MV PK A: 0.82 MV Decel Time: 241.00 E/A: 0.70 E'Lateral: 6.64 E'Medial: 5.55 E/E' Med: 11.00 E/E' Lat: 9.20 PHT: 71.00 MVA PHT: 3.10 Decel Bradford: 2.54 Aortic Valve AoV Pk David: 1.22 AoV Mn David: 0.74 AoV VTI: 0.23 AoV Pk Grad: 6.00 Aov Mn Grad: 3.00 RIP Cont.VTI: 2.39 LVOT LVOT Pk David: 0.77 LVOT Mn David: 0.45 LVOT VTI: 0.14 LVOT Pk Grad: 2.00 LVOT Mn Grad: 1.00 LVOT Diam: 2.20 LVOT Area: 3.80 Diastolic Function MV Pk E: 0.61 MV Pk A: 0.82 E/A: 0.70 E'Medial: 5.55 E/E' Med: 11.00 E' Laterial: 6.64 E/E' Lat: 9.20 Right Ventricle TAPSE (mm): 25.00 TVS' David: 13.00 Tricuspid Valve TR Pk David: 3.14 TR Pk Grad: 39.00 RA Press: 3.00 RVSP: 42.00 Great Vessels Aorta Ao Root-2D: 3.10 2.0-3.7 cm Ao Asc: 3.60 2.1-3.4 cm Pulmonary Valve PV Pk David: 0.86 Peak PV Grad: 3.00 Updated in Other Vendor System with Status of Final Christopher Hodge MD electronically signed on 08/20/2023 3:27:22 PM with status of Final
[2023-08-20] MEDS: Albuterol/Iprat 2.5/0.5MG 3 ML AMPUL.NEB INHALE (08:38)
[2023-08-20] MEDS: 0.9 % Sodium Chloride Flush 3 ML SYRINGE IVFLUSH ×3 (08:55→20:01)
[2023-08-20] MEDS: Aspirin Enteric Coated 81 MG TABLET.DR PO (08:57)
[2023-08-20] MEDS: Memantine HCl 5 MG TABLET PO ×2 (08:57→19:57)
[2023-08-20] MEDS: QUEtiapine Fumarate 50 MG TABLET PO (08:57)
[2023-08-20] MEDS: amLODIPine Besylate 2.5 MG TABLET PO (08:57)
[2023-08-20] MEDS: Clopidogrel Bisulfate 75 MG TABLET PO (08:57)
--- NOTE | 2023-08-20 08:59 | PC.NURSE ---
medicated per the MAR. awaiting IR procedure this morning, plan for 0930 this AM. offering no other complaints at this time
--- NOTE | 2023-08-20 09:29 | MHC.CM.PN ---
IMM 08/20/23, discussed with pt.'s on the phone and sent in the mail. Pt has cognitive impairment due to dx. of Dementia. Pt lives at home with his , he has meals on wheels and home health aid (grand dtr) every day for 2 hours. He has a walker and cane, and home O2. He can walk short distances, but needs someone with him for more. He has been to this [facility] unit in the past for agitated behavior, he has been at home since and has been stable. DC plan is for him to go back home, will transport. CM to follow and assist with DC plan.
--- NOTE | 2023-08-20 09:45 | PC.NURSE ---
Patient transported down for thoracentesis at this time.
[2023-08-20] MEDS: Lidocaine HCl 1 % MPF 5 ML VIAL SUBCUT (10:59)
[2023-08-20 11:32] LABS: MN% 83.8 %; PMN% 16.2 %; WBC Pleural Fluid 0.461 X10*3/uL
[2023-08-20 11:33] LABS: RBC Pleural Fluid < 0.002 X10*6/uL
[2023-08-20 12:44] LABS: BF Shift QC OK YES; Eosinophils Pleural Fluid 21 %; Lymphocytes Pleural Fluid 57 %; Monocytes Pleural Fluid 6 %; Neutrophils Pleural Fluid 2 %; Other Cells Plerual Fl 14 %
--- NOTE | 2023-08-20 14:35 | MHC.CLN ---
NUTRITION CONSULT FOR PRESSURE INJURY. PATIENT WITH AREA TO RIGHT TROCHANTER WITH SCAB INTACT. RD TO MONITOR WEEKLY.
[2023-08-20 14:50] LABS: pH Pleural Fluid 7.54
--- NOTE | 2023-08-20 14:57 | PM.EVENT ---
Event Note Date of Service: 08/20/23 Event Note: Procedure Note: US right thoracentesis 1.3 L yellow fluid removed and sent for analysis. No pneumothorax on post CXR Raimundo SANCHEZ Interventional Radiology Time Spent With Patient Time: Total time managing care of this patient today ____ minutes.
[2023-08-20 14:59] LABS: Albumin Pleural Fluid 1.9 GM/DL; Glucose Pleural Fluid 103 MG/DL; LDH Pleural Fluid 145 U/L
[2023-08-20] MEDS: QUEtiapine Fumarate 25 MG TABLET PO ×2 (15:21→19:59)
--- NOTE | 2023-08-20 15:47 | P.PNIM_ITS ---
Subjective Subjective Date of Service: 08/20/23 Interval History: pneumonia ,pleural effusion Review of Systems sob and cough improving no fever Physical Exam 2 Vital Signs: Vital Signs: Last Vital Signs Temp 97.7 F 08/20/23 15:18 Pulse 87 08/20/23 15:18 Resp 20 08/20/23 15:18 BP 176/85 H 08/20/23 15:18 Pulse Ox 96 08/20/23 15:18 O2 Del Method Nasal Cannula 08/20/23 15:18 O2 Flow Rate 3 08/20/23 15:18 Oxygen Flow Rate 3 08/19/23 14:16 BMI result Body Mass Index 24.7 Appearance: Alert.? Oriented X3. cvs: rrr, [id number] , no murmur res: air entry diminshed right> left ,has few crackles at right lung base. abd: no rebound or guarding ,nt, bs present. ext pulses present , no cyanosis. neuro: axo3 , nonfocal. Objective Data Active Medications Acetaminophen (Acetaminophen 325 Mg Tablet) 650 mg PO Q6H PRN PRN Reason: Pain, Mild (Pain Scale 1-3) Albuterol Sulfate (Albuterol Sulfate 90 Mcg 8 Gm Inhaler) 2 puff INHALE RQ6H PRN PRN Reason: shortness of breath or wheezing Albuterol/Ipratropium (Albuterol/Iprat 2.5/0.5mg 3 Ml Ampul.Neb) 3 ml INHALE BID [facility] Last Admin: 08/20/23 08:38 Dose: 3 ml Documented By: ELANA Albuterol/Ipratropium (Albuterol/Iprat 2.5/0.5mg 3 Ml Ampul.Neb) 3 ml INHALE RQ4H PRN PRN Reason: wheezing Amlodipine Besylate (Amlodipine Besylate 2.5 Mg Tablet) 2.5 mg PO DAILY [facility]; Protocol Last Admin: 08/20/23 08:57 Dose: 2.5 mg Documented By: JESUS Aspirin (Aspirin Enteric Coated 81 Mg Tablet.) 81 mg PO DAILY [facility] Last Admin: 08/20/23 08:57 Dose: 81 mg Documented By: JESUS Atorvastatin Calcium (Atorvastatin Calcium 10 Mg Tablet) 10 mg PO BEDTIME [facility] Benzonatate (Benzonatate 100 Mg Capsule) 100 mg PO TID PRN PRN Reason: Cough Clopidogrel Bisulfate (Clopidogrel Bisulfate 75 Mg Tablet) 75 mg PO DAILY [facility] Last Admin: 08/20/23 08:57 Dose: 75 mg Documented By: JESUS Docusate Sodium (Docusate Sodium 100 Mg Capsule) 100 mg PO DAILY PRN PRN Reason: Constipation Enoxaparin Sodium (Enoxaparin Sodium 40 Mg/0.4 Ml Syringe) 40 mg SUBCUT Q24H [facility] Last Admin: 08/19/23 19:21 Dose: 40 mg Documented By: VICKI Fluticasone/Vilanterol (Fluticasone/Vilanterol 100/25 Blst.W.Dev) 1 puff INHALE RDAILY [facility] Melatonin (Melatonin 3 Mg Tablet) 6 mg PO BEDTIME PRN PRN Reason: Insomnia Last Admin: 08/19/23 20:02 Dose: 6 mg Documented By: VICKI Memantine (Memantine Hcl 5 Mg Tablet) 5 mg PO BID [facility] Last Admin: 08/20/23 08:57 Dose: 5 mg Documented By: JESUS Ondansetron HCl (Ondansetron Hcl 4 Mg/2 Ml Vial) 4 mg IVPUSH Q8H PRN PRN Reason: Nausea and Vomiting Quetiapine Fumarate (Quetiapine Fumarate 50 Mg Tablet) 50 mg PO DAILY [facility] Last Admin: 08/20/23 08:57 Dose: 50 mg Documented By: JESUS Quetiapine Fumarate (Quetiapine Fumarate 100 Mg Tablet) 100 mg PO BEDTIME [facility] Sodium Chloride (0.9 % Sodium Chloride Flush 3 Ml Syringe) 3 ml IVFLUSH QSHIFT [facility] Last Admin: 08/20/23 08:55 Dose: 3 ml Documented By: JESUS Tiotropium [place] (Tiotropium [place] 2.5 Mcg 1 Puff/2.5 Mcg Mist.Inhal) 2 puff INHALE DAILY [facility] Last Admin: 08/20/23 15:22 Dose: Not Given Documented By: ELANA Non-Admin Reason: See Note Trazodone HCl (Trazodone Hcl 50 Mg Tablet) 50 mg PO BEDTIME PRN PRN Reason: Insomnia Labs 08/19/23 13:51 08/20/23 05:12 Labs: Laboratory Results - last 24 hr 08/19/23 08/20/23 08/20/23 13:51 05:12 10:40 Anion Gap 14 Estim Creat Clear Calc 49.3 Estimated GFR 60 Random Glucose 89 Calcium 8.4 Magnesium 1.9 B-Natriuretic Peptide 182 H Procalcitonin 0.05 Pleural pH 7.54 Pleural WBC 0.461 Pleural RBC < 0.002 Pleural Neutrophils 2 Pleural Lymphocytes 57 Pleural Monocytes 6 Pleural Eosinophils 21 Pleural Other Cells 14 Pleural Total Protein 3.0 Pleural Albumin 1.9 Pleural LDH 145 Pleural Glucose 103 Microbiology Microbiology Results: Microbiology 08/20/23 10:40 Gram Stain - Final Pleural Fluid Assessment and Plan (1) Pneumonia: Status: Acute (2) COVID-19: Status: Acute Plan 83-year-old male with a PMH significant for COPD on baseline 3L of home O2, HLD/CAD, HTN, and unspecified dementia who presents to the ED for evaluation of increasing SOB and difficulty breathing after testing positive for COVID this morning. Pt will be admitted to the hospital for treatment and further evaluation of COVID with superimposed pneumonia. COVID infection with likely superimposed pneumonia CXR showing right lower lobe infiltrate/atelectasis with small right pleural effusion Not hypoxic, not requiring increased supplemental O2 COVID infection symptomatically, no indication for dexamethasone or remdesivir Thoracentesis done-lymphocyte predominance, added T spot, adenosine deaminase, also fluid culture. continue pneumonia with ceftriaxone and azithromycin, started 08/19/2023 Patient does not meet sepsis criteria: Tachypneic, but no tachycardia, fever, or leukocytosis CT of chest better evaluate for pneumonia Monitor respiratory status Anxiety vs agitation: as per similar episodes in home also intermittent added seroquel Lower leg edema Patient with shortness of breath, right pleural effusion, mildly elevated BNP of 182, and 2+ bilateral pitting lower leg edema Etiology unclear Will trial 20 mg IV Lasix for now Will get CT of chest to better evaluate for pleural effusion Will get echocardiogram Hypokalemia, mild Potassium 3.1 at time presentation Will supplement with oral potassium Follow BMP COPD Not in acute exacerbation Continue home inhalers CAD/HLD Continue statin, aspirin, Plavix HTN Continue lisinopril Unspecified dementia/mood disorder Continue memantine, quetiapine DNR/DNI, confirmed with pt and pt's ongoing hospitalization need for 4872 hrs for treatment of?COVID infection with superimposed pneumonia. Given patient's significant comorbidities including COPD, CAD, and unspecified dementia, patient is at significant risk for decompensation without hospitalization and administration of IV antibiotics close monitoring of labs and respiratory status. Quality Stroke Does the patient have a stroke diagnosis?: No VTE Prior VTE?: No VTE Risk Level:: Medical - moderate - high VTE Device Contraindication: Treatment Not Indicated VTE Drug Contraindication: N/A - Med Ordered
--- NOTE | 2023-08-20 17:06 | W.PM.IDCN ---
History of Present Illness Data of Consult Service Date: 08/20/23 Requesting physician: Natividad Frausto Primary Care Provider: Yamila Rivera NP HPI Reason for consult: shortness of breath,COVID,pleural effusion He presents with shortness of breath and cough. He has positive test for COVID but also positive last week. He has pleural effusion drained,lymphocytic preponderance. Review of Systems Review of Systems: Yes all other systems are reviewed and are negative PMFSH Past Medical History Medical History Hypoxemia COPD (chronic obstructive pulmonary disease) Pulmonary emphysema Osteopenia Hyperparathyroidism Osteoporosis Vitamin D deficiency Multinodular thyroid Family History Family History Father No problems noted. Mother No problems noted. Family history: reviewed and not pertinent Surgical History Surgical History Hx of prostatectomy Hx of hernia repair Social History Social History Household Members: Family Household Members Other:: 2 Housing: House Do you presently have visiting nurse or other home services: Yes Alcohol intake: never Comment: sitter at bedside Patient Tobacco Use Status: Former Tobacco user Quit Date: 35 years Tobacco use type: Cigarette Smoked in Last 30 Days: No Use of substances other than those prescribed or required for medical reasons: No Currently Displaying Signs/Symptoms of Drug Intoxication Withdrawal: No Any prior treatment program specific to substance use: No Have you been hit, kicked, punched, or otherwise hurt by someone within the past year? If so, by whom?: No Do you feel safe in your current relationship?: Yes Is there a partner from a previous relationship who is making you feel unsafe now?: No Are you made to feel afraid or neglected: No Advance Directives: Yes Advance Directives on File: Yes Advance Directives Date on File: 02/28/23 Do you have thoughts of harming others: None Do you have a plan to hurt others: No Plan Recently lost weight without trying: No Eating poorly because of decreased appetite: No Nutrition Risks: No Nutritional Risk Poor oral hygiene: No service: No Sexual orientation: Straight/Heterosexual Meds Allergies Allergy/AdvReac Type Severity Reaction Status Date / Time No Known Allergies Allergy Mild NONE Verified 08/19/23 14:17 cats dogs ragweed dust pollen Allergy Unknown Unknown Uncoded 08/19/23 14:17 Active Medications: Current Medications Acetaminophen (Acetaminophen 325 Mg Tablet) 650 mg PO Q6H PRN PRN Reason: Pain, Mild (Pain Scale 1-3) Albuterol Sulfate (Albuterol Sulfate 90 Mcg 8 Gm Inhaler) 2 puff INHALE RQ6H PRN PRN Reason: shortness of breath or wheezing Albuterol/Ipratropium (Albuterol/Iprat 2.5/0.5mg 3 Ml Ampul.Neb) 3 ml INHALE BID [facility] Last Admin: 08/20/23 08:38 Dose: 3 ml Albuterol/Ipratropium (Albuterol/Iprat 2.5/0.5mg 3 Ml Ampul.Neb) 3 ml INHALE RQ4H PRN PRN Reason: wheezing Amlodipine Besylate (Amlodipine Besylate 5 Mg Tablet) 5 mg PO DAILY [facility]; Protocol Aspirin (Aspirin Enteric Coated 81 Mg Tablet.Dr) 81 mg PO DAILY [facility] Last Admin: 08/20/23 08:57 Dose: 81 mg Atorvastatin Calcium (Atorvastatin Calcium 10 Mg Tablet) 10 mg PO BEDTIME [facility] Benzonatate (Benzonatate 100 Mg Capsule) 100 mg PO TID PRN PRN Reason: Cough Clopidogrel Bisulfate (Clopidogrel Bisulfate 75 Mg Tablet) 75 mg PO DAILY [facility] Last Admin: 08/20/23 08:57 Dose: 75 mg Docusate Sodium (Docusate Sodium 100 Mg Capsule) 100 mg PO DAILY PRN PRN Reason: Constipation Enoxaparin Sodium (Enoxaparin Sodium 40 Mg/0.4 Ml Syringe) 40 mg SUBCUT Q24H [facility] Last Admin: 08/19/23 19:21 Dose: 40 mg Fluticasone/Vilanterol (Fluticasone/Vilanterol 100/25 Blst.W.Dev) 1 puff INHALE RDAILY [facility] Melatonin (Melatonin 3 Mg Tablet) 6 mg PO BEDTIME PRN PRN Reason: Insomnia Last Admin: 08/19/23 20:02 Dose: 6 mg Memantine (Memantine Hcl 5 Mg Tablet) 5 mg PO BID [facility] Last Admin: 08/20/23 08:57 Dose: 5 mg Ondansetron HCl (Ondansetron Hcl 4 Mg/2 Ml Vial) 4 mg IVPUSH Q8H PRN PRN Reason: Nausea and Vomiting Quetiapine Fumarate (Quetiapine Fumarate 50 Mg Tablet) 50 mg PO DAILY [facility] Last Admin: 08/20/23 08:57 Dose: 50 mg Quetiapine Fumarate (Quetiapine Fumarate 100 Mg Tablet) 100 mg PO BEDTIME [facility] Quetiapine Fumarate (Quetiapine Fumarate 25 Mg Tablet) 25 mg PO BID PRN PRN Reason: anxiety Sodium Chloride (0.9 % Sodium Chloride Flush 3 Ml Syringe) 3 ml IVFLUSH QSHIFT [facility] Last Admin: 08/20/23 16:35 Dose: 3 ml Tiotropium [place] (Tiotropium [place] 2.5 Mcg 1 Puff/2.5 Mcg Mist.Inhal) 2 puff INHALE DAILY [facility] Last Admin: 08/20/23 15:22 Dose: Not Given Trazodone HCl (Trazodone Hcl 50 Mg Tablet) 50 mg PO BEDTIME PRN PRN Reason: Insomnia Home Medications Medication Instructions Recorded Confirmed Last Taken Type ipratropium 0.5 mg-albuterol 3 mg 3 ml inhalation BID wheezing 08/19/23 08/19/23 08/19/23 History (2.5 mg base)/3 mL nebulization soln ipratropium 0.5 mg-albuterol 3 mg 3 ml inhalation Q4-6H PRN wheezing 08/19/23 08/19/23 Unknown History (2.5 mg base)/3 mL nebulization soln trazodone 50 mg tablet 50 mg PO BEDTIME PRN Insomnia 08/20/23 08/20/23 Unknown History Physical Exam Vital Signs: Vital Signs: Last Vital Signs Temp 97.7 F 08/20/23 15:18 Pulse 87 08/20/23 15:18 Resp 20 08/20/23 15:18 BP 176/85 H 08/20/23 15:18 Pulse Ox 96 08/20/23 15:18 O2 Del Method Nasal Cannula 08/20/23 15:18 O2 Flow Rate 3 08/20/23 15:18 Oxygen Flow Rate 3 08/19/23 14:16 BMI result Body Mass Index 24.7 Resp: Other: slight shortness of breath Results Labs 08/19/23 13:51 08/20/23 05:12 Labs: BMP 08/20/23 05:12 Sodium 143 Potassium 3.4 Chloride 102 Carbon Dioxide 30 H BUN 17 H Creatinine 1.17 Calcium 8.4 Microbiology Microbiology Results: Microbiology 08/19/23 14:30 Blood - Venous Blood Culture - Preliminary No growth after 24 hours. 08/19/23 14:30 Blood - Venous Blood Culture - Preliminary No growth after 24 hours. 08/20/23 10:40 Pleural Fluid Gram Stain - Final Assessment and Plan (1) COVID-19: Status: Acute (2) Pneumonia: Status: Acute (3) Hypoxemia: Status: Acute Plan He has COPD and pleural effusion. COVID unknown duration so no treatment. He has procalcitonin of .05 so doubt lobar pneumonia/bacterial infection.. Would check Tspot Check pleural fluid adenosine deaminase. No antibiotics at this time indicated.
[2023-08-20] MEDS: Atorvastatin Calcium 10 MG TABLET PO (19:57)
[2023-08-20] MEDS: QUEtiapine Fumarate 100 MG TABLET PO (19:57)
[2023-08-20] MEDS: Benzonatate 100 MG CAPSULE PO (19:58)
[2023-08-20] MEDS: traZODone HCL 50 MG TABLET PO (19:59)
[2023-08-20] MEDS: ondansetron HCL 4 MG/2 ML VIAL IVPUSH (20:01)
[2023-08-21] VITALS (7 sets, daily range): BP systolic 139–162; BP diastolic 71–80; PULSE 70–88; RESP 18–20; TEMP 36–37.1; O2SAT 91–98
[2023-08-21] MEDS: OLANZapine 10 MG VIAL 2.5 MG IM (03:17)
[2023-08-21 07:04] LABS: Anion Gap 13 (12-20); Blood Urea Nitrogen 24 mg/dL (9-16); Calcium 8.2 mg/dL (8.4-10.2); Carbon Dioxide 30 mmol/L (22-29); Chloride 102 mmol/L (96-108); Creatinine Clr Calc Pharmacy 56.1; Estimated Glomerular Filt Rate > 60; Glucose Random 94 mg/dL (60-115); Magnesium 1.9 mg/dL (1.6-2.6); Potassium 3.3 mmol/L (3.3-5.1); Sodium 142 mmol/L (135-145)
[2023-08-21] MEDS: Albuterol/Iprat 2.5/0.5MG 3 ML AMPUL.NEB INHALE ×2 (08:20→20:12)
[2023-08-21] MEDS: Fluticasone/Vilanterol 100/25 BLST.W.DEV 1 PUFF INHALE (08:20)
[2023-08-21] MEDS: Tiotropium Bromide 2.5 mcg 1 PUFF/2.5 MCG MIST.INHAL 2 PUFF INHALE (08:21)
[2023-08-21] MEDS: Clopidogrel Bisulfate 75 MG TABLET PO (08:36)
[2023-08-21] MEDS: QUEtiapine Fumarate 50 MG TABLET PO (08:36)
[2023-08-21] MEDS: amLODIPine Besylate 5 MG TABLET PO (08:36)
[2023-08-21] MEDS: 0.9 % Sodium Chloride Flush 3 ML SYRINGE IVFLUSH ×3 (08:39→22:43)
[2023-08-21] MEDS: Aspirin Enteric Coated 81 MG TABLET.DR PO (09:35)
[2023-08-21] MEDS: Memantine HCl 5 MG TABLET PO ×2 (14:43→22:42)
--- NOTE | 2023-08-21 15:02 | P.PNIM_ITS ---
Subjective Subjective Date of Service: 08/21/23 Interval History: pneumonia ,pleural effusion Review of Systems seems improving no fevers Physical Exam 2 Vital Signs: Vital Signs: Last Vital Signs Temp 98.4 F 08/21/23 11:24 Pulse 88 08/21/23 11:24 Resp 20 08/21/23 11:24 BP 162/80 H 08/21/23 11:24 Pulse Ox 96 08/21/23 11:24 O2 Del Method Nasal Cannula 08/21/23 11:24 O2 Flow Rate 3 08/21/23 11:24 Oxygen Flow Rate 3 08/19/23 14:16 BMI result Body Mass Index 24.7 Appearance: Alert.? Oriented X3. cvs: rrr, [id number] , no murmur res: air entry fair but somewhat diminshed at right base. abd: no rebound or guarding ,nt, bs present. ext pulses present , no cyanosis. neuro: axo3 , nonfocal. Objective Data Active Medications Acetaminophen (Acetaminophen 325 Mg Tablet) 650 mg PO Q6H PRN PRN Reason: Pain, Mild (Pain Scale 1-3) Albuterol Sulfate (Albuterol Sulfate 90 Mcg 8 Gm Inhaler) 2 puff INHALE RQ6H PRN PRN Reason: shortness of breath or wheezing Albuterol/Ipratropium (Albuterol/Iprat 2.5/0.5mg 3 Ml Ampul.Neb) 3 ml INHALE BID [facility] Last Admin: 08/21/23 08:20 Dose: 3 ml Documented By: PAO Albuterol/Ipratropium (Albuterol/Iprat 2.5/0.5mg 3 Ml Ampul.Neb) 3 ml INHALE RQ4H PRN PRN Reason: wheezing Amlodipine Besylate (Amlodipine Besylate 5 Mg Tablet) 5 mg PO DAILY [facility]; Protocol Last Admin: 08/21/23 08:36 Dose: 5 mg Documented By: AMRITA Aspirin (Aspirin Enteric Coated 81 Mg Tablet.) 81 mg PO DAILY [facility] Last Admin: 08/21/23 09:35 Dose: 81 mg Documented By: AMRITA Atorvastatin Calcium (Atorvastatin Calcium 10 Mg Tablet) 10 mg PO BEDTIME [facility] Last Admin: 08/20/23 19:57 Dose: 10 mg Documented By: SAMI Benzonatate (Benzonatate 100 Mg Capsule) 100 mg PO TID PRN PRN Reason: Cough Last Admin: 08/20/23 19:58 Dose: 100 mg Documented By: SAMI Clopidogrel Bisulfate (Clopidogrel Bisulfate 75 Mg Tablet) 75 mg PO DAILY [facility] Last Admin: 08/21/23 08:36 Dose: 75 mg Documented By: AMRITA Docusate Sodium (Docusate Sodium 100 Mg Capsule) 100 mg PO DAILY PRN PRN Reason: Constipation Enoxaparin Sodium (Enoxaparin Sodium 40 Mg/0.4 Ml Syringe) 40 mg SUBCUT Q24H [facility] Last Admin: 08/19/23 19:21 Dose: 40 mg Documented By: VICKI Fluticasone/Vilanterol (Fluticasone/Vilanterol 100/25 Blst.W.Dev) 1 puff INHALE RDAILY [facility] Last Admin: 08/21/23 08:20 Dose: 1 puff Documented By: PAO Melatonin (Melatonin 3 Mg Tablet) 6 mg PO BEDTIME PRN PRN Reason: Insomnia Last Admin: 08/19/23 20:02 Dose: 6 mg Documented By: VICKI Memantine (Memantine Hcl 5 Mg Tablet) 5 mg PO BID [facility] Last Admin: 08/21/23 14:43 Dose: 5 mg Documented By: AMRITA Ondansetron HCl (Ondansetron Hcl 4 Mg/2 Ml Vial) 4 mg IVPUSH Q8H PRN PRN Reason: Nausea and Vomiting Last Admin: 08/20/23 20:01 Dose: 4 mg Documented By: SAMI Quetiapine Fumarate (Quetiapine Fumarate 50 Mg Tablet) 50 mg PO DAILY [facility] Last Admin: 08/21/23 08:36 Dose: 50 mg Documented By: AMRITA Quetiapine Fumarate (Quetiapine Fumarate 100 Mg Tablet) 100 mg PO BEDTIME [facility] Last Admin: 08/20/23 19:57 Dose: 100 mg Documented By: SAMI Quetiapine Fumarate (Quetiapine Fumarate 25 Mg Tablet) 25 mg PO BID PRN PRN Reason: anxiety Last Admin: 08/20/23 19:59 Dose: 25 mg Documented By: SAMI Sodium Chloride (0.9 % Sodium Chloride Flush 3 Ml Syringe) 3 ml IVFLUSH QSHIFT [facility] Last Admin: 08/21/23 14:54 Dose: 3 ml Documented By: AMRITA Tiotropium [place] (Tiotropium [place] 2.5 Mcg 1 Puff/2.5 Mcg Mist.Inhal) 2 puff INHALE DAILY [facility] Last Admin: 08/21/23 08:21 Dose: 2 puff Documented By: PAO Trazodone HCl (Trazodone Hcl 50 Mg Tablet) 50 mg PO BEDTIME PRN PRN Reason: Insomnia Last Admin: 08/20/23 19:59 Dose: 50 mg Documented By: POTTSSU Labs 08/19/23 13:51 08/21/23 06:30 Labs: Laboratory Results - last 24 hr 08/21/23 06:30 Hold Purple Top SEE NOTE Anion Gap 13 Estim Creat Clear Calc 56.1 Estimated GFR > 60 Random Glucose 94 Calcium 8.2 L Magnesium 1.9 Microbiology Microbiology Results: Microbiology 08/20/23 10:40 Gram Stain - Final Pleural Fluid Routine Culture - Preliminary No growth to date. Anaerobic Culture - Preliminary No growth to date. 08/19/23 14:30 Blood Culture - Preliminary Blood - Venous No growth after 24 hours. 08/19/23 14:30 Blood Culture - Preliminary Blood - Venous No growth after 24 hours. Assessment and Plan (1) Pneumonia: Status: Acute (2) COVID-19: Status: Acute Plan 83-year-old male with a PMH significant for COPD on baseline 3L of home O2, HLD/CAD, HTN, and unspecified dementia who presents to the ED for evaluation of increasing SOB and difficulty breathing after testing positive for COVID this morning. Pt will be admitted to the hospital for treatment and further evaluation of COVID with superimposed pneumonia. COVID infection with likely superimposed pneumonia CXR showing right lower lobe infiltrate/atelectasis with small right pleural effusion Not hypoxic, not requiring increased supplemental O2 COVID infection symptomatically, no indication for dexamethasone or remdesivir Thoracentesis done-lymphocyte predominance, added T spot, adenosine deaminase, also fluid culture. continue pneumonia with ceftriaxone and azithromycin, started 08/19/2023 Patient does not meet sepsis criteria: Tachypneic, but no tachycardia, fever, or leukocytosis CT of chest -? pneumonia,pleural effusion-s/p thoracentesis, pleural labs. added ceftriaxone/doxy, Monitor respiratory status Anxiety vs agitation: as per similar episodes in home also intermittent added seroquel possible mild chf diastolic dysfuction: Lower leg edema Patient with shortness of breath, right pleural effusion, mildly elevated BNP of 182, and 2+ bilateral pitting lower leg edema Etiology unclear echocardiogram: Technically limited study despite use of contrast agent 2. Normal LV ejection fraction 55-60% with impaired relaxation filling pattern 3. Limited visualization of cardiac valve with normal cardiac valvular Dopplers 4. Mildly elevated right ventricular systolic pressure will add small dose lasix . Hypokalemia, mild repletd and resolved. COPD Not in acute exacerbation Continue home inhalers CAD/HLD Continue statin, aspirin, Plavix HTN Continue lisinopril Unspecified dementia/mood disorder Continue memantine, quetiapine DNR/DNI, confirmed with pt and pt's ongoing hospitalization need for 48-72 hrs for treatment of?COVID infection with superimposed pneumonia. Given patient's significant comorbidities including COPD, CAD, and unspecified dementia, patient is at significant risk for decompensation without hospitalization and administration of IV antibiotics close monitoring of labs and respiratory status. Quality Stroke Does the patient have a stroke diagnosis?: No VTE Prior VTE?: No VTE Risk Level:: Medical - moderate - high VTE Device Contraindication: Treatment Not Indicated VTE Drug Contraindication: N/A - Med Ordered
[2023-08-21] MEDS: Doxycycline Hyclate 100 MG in 0.9 % Sodium Chloride 250 ML 166.67 MG IV (17:25)
[2023-08-21] MEDS: Furosemide 20 MG TABLET PO (17:43)
[2023-08-21] MEDS: cefTRIAXone sodium 1 GM in 0.9 % Sodium Chloride 50 ML IV (17:43)
[2023-08-21 21:47] LABS: Glucose, Whole Blood 100 mg/dL (60-115)
[2023-08-21] MEDS: Melatonin 3 MG TABLET 6 MG PO (22:42)
[2023-08-21] MEDS: traZODone HCL 50 MG TABLET PO (22:42)
[2023-08-21] MEDS: QUEtiapine Fumarate 100 MG TABLET PO (22:42)
[2023-08-21] MEDS: Atorvastatin Calcium 10 MG TABLET PO (22:42)
[2023-08-22] VITALS (9 sets, daily range): BP systolic 90–140; BP diastolic 54–77; PULSE 55–111; RESP 16–20; TEMP 36.4–37.3; O2SAT 93–98
[2023-08-22] MEDS: Doxycycline Hyclate 100 MG in 0.9 % Sodium Chloride 250 ML 166.67 MG IV ×2 (04:59→17:26)
--- NOTE | 2023-08-22 06:16 | PM.EVENT ---
Event Note Date of Service: 08/22/23 Event Note: 5:26 AM - Contacted to notify patient had an unwitnessed fall. He was found on the floor. Patient does not remember what happened before falling down. He did not report any symptoms such as chest pain, shortness on breath or palpitations. He does complain of lower back pain from the fall. Exam: Head atraumatic, no wounds. There is midline tenderness in the lumbar back. All extremities range of motion is grossly normal. According to nursing patient has been refusing his telemetry box. Plan: Head and C-spine CT scan stat Lumbar x-rays Patient was convinced to use his telemetry box. He was explained that is important to monitor his heart in order to identify any abnormality of his heart. He agreed. Time Spent With Patient Time: Total time managing care of this patient today ____ minutes.
[2023-08-22] MEDS: Albuterol/Iprat 2.5/0.5MG 3 ML AMPUL.NEB INHALE ×2 (08:41→19:56)
[2023-08-22] MEDS: Furosemide 20 MG TABLET PO (09:40)
[2023-08-22] MEDS: QUEtiapine Fumarate 50 MG TABLET PO (09:40)
[2023-08-22] MEDS: 0.9 % Sodium Chloride Flush 3 ML SYRINGE IVFLUSH ×3 (09:40→21:23)
[2023-08-22] MEDS: amLODIPine Besylate 5 MG TABLET PO (09:40)
[2023-08-22] MEDS: Clopidogrel Bisulfate 75 MG TABLET PO (09:40)
[2023-08-22] MEDS: Aspirin Enteric Coated 81 MG TABLET.DR PO (09:40)
[2023-08-22 09:41] LABS: Anion Gap 11 (12-20); Blood Urea Nitrogen 19 mg/dL (9-16); Calcium 8.4 mg/dL (8.4-10.2); Carbon Dioxide 34 mmol/L (22-29); Chloride 102 mmol/L (96-108); Creatinine Clr Calc Pharmacy 54.5; Estimated Glomerular Filt Rate > 60; Glucose Random 92 mg/dL (60-115); Magnesium 1.8 mg/dL (1.6-2.6); Potassium 3.1 mmol/L (3.3-5.1); Sodium 144 mmol/L (135-145)
[2023-08-22] MEDS: Memantine HCl 5 MG TABLET PO ×2 (09:51→21:21)
--- NOTE | 2023-08-22 11:52 | P.PNIM_ITS ---
Subjective Subjective Date of Service: 08/22/23 Interval History: overnight events noted -fall says some soarness in right knee area Review of Systems no sob or chest pain seems calmer this morning, no fevers Physical Exam 2 Vital Signs: Vital Signs: Last Vital Signs Temp 99.2 F 08/22/23 08:00 Pulse 79 08/22/23 08:42 Resp 18 08/22/23 08:42 BP 101/68 08/22/23 08:00 Pulse Ox 97 08/22/23 08:00 O2 Del Method Nasal Cannula 08/22/23 08:00 O2 Flow Rate 3 08/22/23 08:00 Oxygen Flow Rate 3 08/19/23 14:16 BMI result Body Mass Index 24.7 Appearance: Alert.? Oriented X3.but gets agitated intermittent,easily directable. cvs: rrr, [id number] . res: air entry fair but somewhat diminshed at right base. abd: no rebound or guarding ,nt, bs present. ext pulses present , no cyanosis. right knee soarness -no swelling/erythema neuro: nonfocal. Objective Data Active Medications Acetaminophen (Acetaminophen 325 Mg Tablet) 650 mg PO Q6H PRN PRN Reason: Pain, Mild (Pain Scale 1-3) Albuterol Sulfate (Albuterol Sulfate 90 Mcg 8 Gm Inhaler) 2 puff INHALE RQ6H PRN PRN Reason: shortness of breath or wheezing Albuterol/Ipratropium (Albuterol/Iprat 2.5/0.5mg 3 Ml Ampul.Neb) 3 ml INHALE BID [facility] Last Admin: 08/22/23 08:41 Dose: 3 ml Documented By: YOLY Albuterol/Ipratropium (Albuterol/Iprat 2.5/0.5mg 3 Ml Ampul.Neb) 3 ml INHALE RQ4H PRN PRN Reason: wheezing Amlodipine Besylate (Amlodipine Besylate 5 Mg Tablet) 5 mg PO DAILY [facility]; Protocol Last Admin: 08/22/23 09:40 Dose: 5 mg Documented By: AMRITA Aspirin (Aspirin Enteric Coated 81 Mg Tablet.) 81 mg PO DAILY [facility] Last Admin: 08/22/23 09:40 Dose: 81 mg Documented By: AMRITA Atorvastatin Calcium (Atorvastatin Calcium 10 Mg Tablet) 10 mg PO BEDTIME [facility] Last Admin: 08/21/23 22:42 Dose: 10 mg Documented By: SAMI Benzonatate (Benzonatate 100 Mg Capsule) 100 mg PO TID PRN PRN Reason: Cough Last Admin: 08/20/23 19:58 Dose: 100 mg Documented By: SAMI Clopidogrel Bisulfate (Clopidogrel Bisulfate 75 Mg Tablet) 75 mg PO DAILY [facility] Last Admin: 08/22/23 09:40 Dose: 75 mg Documented By: AMRITA Docusate Sodium (Docusate Sodium 100 Mg Capsule) 100 mg PO DAILY PRN PRN Reason: Constipation Enoxaparin Sodium (Enoxaparin Sodium 40 Mg/0.4 Ml Syringe) 40 mg SUBCUT Q24H [facility] Last Admin: 08/19/23 19:21 Dose: 40 mg Documented By: VICKI Fluticasone/Vilanterol (Fluticasone/Vilanterol 100/25 Blst.W.Dev) 1 puff INHALE RDAILY [facility] Last Admin: 08/21/23 08:20 Dose: 1 puff Documented By: PAO Furosemide (Furosemide 20 Mg Tablet) 20 mg PO DAILY [facility]; Protocol Last Admin: 08/22/23 09:40 Dose: 20 mg Documented By: AMRITA Ceftriaxone Sodium 1 gm/ (Sodium Chloride) 50 mls @ 100 mls/hr IV Q24H [facility] Last Infusion: 08/21/23 18:24 Dose: Infused Documented By: AMRITA Doxycycline Hyclate 100 mg/ (Sodium Chloride) 250 mls @ 166.67 mls/hr IV Q12H [facility] Last Admin: 08/22/23 04:59 Dose: 166.67 mls/hr Documented By: SAMI Melatonin (Melatonin 3 Mg Tablet) 6 mg PO BEDTIME PRN PRN Reason: Insomnia Last Admin: 08/21/23 22:42 Dose: 6 mg Documented By: SAMI Memantine (Memantine Hcl 5 Mg Tablet) 5 mg PO BID [facility] Last Admin: 08/22/23 09:51 Dose: 5 mg Documented By: AMRITA Ondansetron HCl (Ondansetron Hcl 4 Mg/2 Ml Vial) 4 mg IVPUSH Q8H PRN PRN Reason: Nausea and Vomiting Last Admin: 08/20/23 20:01 Dose: 4 mg Documented By: SAMI Quetiapine Fumarate (Quetiapine Fumarate 50 Mg Tablet) 50 mg PO DAILY [facility] Last Admin: 08/22/23 09:40 Dose: 50 mg Documented By: AMRITA Quetiapine Fumarate (Quetiapine Fumarate 100 Mg Tablet) 100 mg PO BEDTIME [facility] Last Admin: 08/21/23 22:42 Dose: 100 mg Documented By: SAMI Quetiapine Fumarate (Quetiapine Fumarate 25 Mg Tablet) 25 mg PO BID PRN PRN Reason: anxiety Last Admin: 08/20/23 19:59 Dose: 25 mg Documented By: SAMI Sodium Chloride (0.9 % Sodium Chloride Flush 3 Ml Syringe) 3 ml IVFLUSH QSHIFT [facility] Last Admin: 08/22/23 09:40 Dose: 3 ml Documented By: AMRITA Tiotropium [place] (Tiotropium [place] 2.5 Mcg 1 Puff/2.5 Mcg Mist.Inhal) 2 puff INHALE DAILY [facility] Last Admin: 08/21/23 08:21 Dose: 2 puff Documented By: PAO Trazodone HCl (Trazodone Hcl 50 Mg Tablet) 50 mg PO BEDTIME PRN PRN Reason: Insomnia Last Admin: 08/21/23 22:42 Dose: 50 mg Documented By: SAMI Labs 08/19/23 13:51 08/22/23 09:07 Labs: Laboratory Results - last 24 hr 08/21/23 08/22/23 21:38 09:07 Hold Purple Top SEE NOTE Anion Gap 11 L Estim Creat Clear Calc 54.5 Estimated GFR > 60 POC Glucose 100 Random Glucose 92 Calcium 8.4 Magnesium 1.8 Microbiology Microbiology Results: Microbiology 08/20/23 10:40 Gram Stain - Final Pleural Fluid Routine Culture - Final No growth after 2 days Anaerobic Culture - Preliminary No growth to date. 08/19/23 14:30 Blood Culture - Preliminary Blood - Venous No growth after 48 hours. 08/19/23 14:30 Blood Culture - Preliminary Blood - Venous No growth after 48 hours. Assessment and Plan (1) Pneumonia: Status: Acute (2) COVID-19: Status: Acute Plan 83-year-old male with a PMH significant for COPD on baseline 3L of home O2, HLD/CAD, HTN, and unspecified dementia who presents to the ED for evaluation of increasing SOB and difficulty breathing after testing positive for COVID this morning. Pt will be admitted to the hospital for treatment and further evaluation of COVID with superimposed pneumonia. COVID infection with likely superimposed pneumonia CXR showing right lower lobe infiltrate/atelectasis with small right pleural effusion Not hypoxic, not requiring increased supplemental O2 COVID infection symptomatically, no indication for dexamethasone or remdesivir ct chest :possible pneumonia /pleural effusion-s/p thoracentesis, pleural labs reviewed -lympocytic predominance. cxr-trace pneumothroax. Thoracentesis done-lymphocyte predominance, added T spot, adenosine deaminase, also fluid culture. continue pneumonia with ceftriaxone and azithromycin, started 08/19/2023 continue ceftriaxone/doxy, Monitor respiratory status Fall:circumstances unclear no bruises ct head ,c spine -seems fine ,ch changes. lspine xary-no acute fractures right knee soaraness -added knee xray continue to moniter with camera/sitter. Anxiety vs agitation: as per similar episodes in home also intermittent continue current home regimen ,sitter,monitre closely possible mild chf diastolic dysfuction: Lower leg edema Patient with shortness of breath, right pleural effusion, mildly elevated BNP of 182, and 2+ bilateral pitting lower leg edema Etiology unclear echocardiogram: Technically limited study despite use of contrast agent 2. Normal LV ejection fraction 55-60% with impaired relaxation filling pattern 3. Limited visualization of cardiac valve with normal cardiac valvular Dopplers 4. Mildly elevated right ventricular systolic pressure continue asix . Hypokalemia, mild repletd and resolved. COPD Not in acute exacerbation Continue home inhalers CAD/HLD Continue statin, aspirin, Plavix HTN Continue lisinopril Unspecified dementia/mood disorder Continue memantine, quetiapine DNR/DNI, confirmed with pt and pt's ongoing hospitalization for treatment of?COVID infection with superimposed pneumonia. Given patient's significant comorbidities including COPD, CAD, and unspecified dementia, patient is at significant risk for decompensation without hospitalization and administration of IV antibiotics close monitoring of labs and respiratory status. Quality Stroke Does the patient have a stroke diagnosis?: No VTE Prior VTE?: No VTE Risk Level:: Medical - moderate - high VTE Device Contraindication: Treatment Not Indicated VTE Drug Contraindication: N/A - Med Ordered
[2023-08-22] MEDS: Acetaminophen 325 MG TABLET 650 MG PO ×2 (12:26→21:21)
[2023-08-22] MEDS: cefTRIAXone sodium 1 GM in 0.9 % Sodium Chloride 50 ML IV (16:32)
[2023-08-22] MEDS: Melatonin 3 MG TABLET 6 MG PO (21:21)
[2023-08-22] MEDS: QUEtiapine Fumarate 100 MG TABLET PO (21:21)
[2023-08-22] MEDS: traZODone HCL 50 MG TABLET PO (21:21)
[2023-08-22] MEDS: Benzonatate 100 MG CAPSULE PO (21:21)
[2023-08-22] MEDS: Atorvastatin Calcium 10 MG TABLET PO (21:21)
[2023-08-22 22:23] LABS: TS Negative Control Passed; TS Panel A 0; TS Panel B 0; TS Positive Control Passed; TSpotTB Negative (Negative)
[2023-08-23] VITALS (10 sets, daily range): BP systolic 100–138; BP diastolic 65–84; PULSE 67–91; RESP 16–20; TEMP 36.1–36.8; O2SAT 93–100
[2023-08-23] MEDS: Doxycycline Hyclate 100 MG in 0.9 % Sodium Chloride 250 ML 166.67 MG IV ×2 (03:52→15:18)
[2023-08-23] MEDS: Albuterol/Iprat 2.5/0.5MG 3 ML AMPUL.NEB INHALE ×2 (07:19→20:08)
[2023-08-23] MEDS: Aspirin Enteric Coated 81 MG TABLET.DR PO (07:47)
[2023-08-23] MEDS: Clopidogrel Bisulfate 75 MG TABLET PO (07:47)
[2023-08-23] MEDS: 0.9 % Sodium Chloride Flush 3 ML SYRINGE IVFLUSH ×3 (07:48→21:40)
[2023-08-23] MEDS: Memantine HCl 5 MG TABLET PO ×2 (07:48→21:40)
[2023-08-23] MEDS: Furosemide 20 MG TABLET PO (07:48)
[2023-08-23] MEDS: amLODIPine Besylate 5 MG TABLET PO (07:48)
[2023-08-23] MEDS: QUEtiapine Fumarate 50 MG TABLET PO (07:48)
[2023-08-23] MEDS: Tiotropium Bromide 2.5 mcg 1 PUFF/2.5 MCG MIST.INHAL 2 PUFF INHALE (08:17)
[2023-08-23] MEDS: Fluticasone/Vilanterol 100/25 BLST.W.DEV 1 PUFF INHALE (08:17)
[2023-08-23 08:40] LABS: Potassium 2.9 mmol/L (3.3-5.1)
[2023-08-23] MEDS: Potassium Chloride ER 20 MEQ TAB.ER.PRT 40 MEQ PO (09:19)
--- NOTE | 2023-08-23 13:42 | MHC.CM.PN ---
Pt. is not yet ready for DC. PT rec STR. CM spoke to pt. and his about this, pt. said he would rather be at home and get PT. His said that he does better at home, he does not like being away from home (like being here) and does not do well. CM will follow and assist with DC, may be referring for home PT.
[2023-08-23] MEDS: cefTRIAXone sodium 1 GM in 0.9 % Sodium Chloride 50 ML IV (14:40)
--- NOTE | 2023-08-23 15:28 | HO.PM.IMPN ---
Subjective Subjective Date of Service: 08/23/23 Interval History: pneumonia Review of Systems sob somewhat improving has cough,no chets pain no fevers Physical Exam Vital Signs: Vital Signs: Last Vital Signs Temp 98.3 F 08/23/23 12:00 Pulse 80 08/23/23 12:00 Resp 18 08/23/23 12:00 BP 126/76 08/23/23 12:00 Pulse Ox 95 08/23/23 12:00 O2 Del Method Nasal Cannula 08/23/23 12:00 O2 Flow Rate 5 08/23/23 12:00 Oxygen Flow Rate 3 08/19/23 14:16 BMI result Body Mass Index 24.7 Appearance: Alert.? Oriented X3.calm,easily directable. cvs: rrr, [id number] . res: air entry fair but somewhat diminshed at right base. abd: no rebound or guarding ,nt, bs present. ext pulses present , no cyanosis. right knee soarness -no swelling/erythema neuro: nonfocal. Objective Data Active Medications Acetaminophen (Acetaminophen 325 Mg Tablet) 650 mg PO Q6H PRN PRN Reason: Pain, Mild (Pain Scale 1-3) Last Admin: 08/22/23 21:21 Dose: 650 mg Documented By: MEHDI Albuterol Sulfate (Albuterol Sulfate 90 Mcg 8 Gm Inhaler) 2 puff INHALE RQ6H PRN PRN Reason: shortness of breath or wheezing Albuterol/Ipratropium (Albuterol/Iprat 2.5/0.5mg 3 Ml Ampul.Neb) 3 ml INHALE BID [facility] Last Admin: 08/23/23 07:19 Dose: 3 ml Documented By: BENITA Albuterol/Ipratropium (Albuterol/Iprat 2.5/0.5mg 3 Ml Ampul.Neb) 3 ml INHALE RQ4H PRN PRN Reason: wheezing Amlodipine Besylate (Amlodipine Besylate 5 Mg Tablet) 5 mg PO DAILY [facility]; Protocol Last Admin: 08/23/23 07:48 Dose: 5 mg Documented By: ELBA Aspirin (Aspirin Enteric Coated 81 Mg Tablet.) 81 mg PO DAILY [facility] Last Admin: 08/23/23 07:47 Dose: 81 mg Documented By: ELBA Atorvastatin Calcium (Atorvastatin Calcium 10 Mg Tablet) 10 mg PO BEDTIME [facility] Last Admin: 08/22/23 21:21 Dose: 10 mg Documented By: COTEMA Benzonatate (Benzonatate 100 Mg Capsule) 100 mg PO TID PRN PRN Reason: Cough Last Admin: 08/22/23 21:21 Dose: 100 mg Documented By: MEHDI Clopidogrel Bisulfate (Clopidogrel Bisulfate 75 Mg Tablet) 75 mg PO DAILY [facility] Last Admin: 08/23/23 07:47 Dose: 75 mg Documented By: ELBA Docusate Sodium (Docusate Sodium 100 Mg Capsule) 100 mg PO DAILY PRN PRN Reason: Constipation Enoxaparin Sodium (Enoxaparin Sodium 40 Mg/0.4 Ml Syringe) 40 mg SUBCUT Q24H [facility] Last Admin: 08/19/23 19:21 Dose: 40 mg Documented By: VICKI Fluticasone/Vilanterol (Fluticasone/Vilanterol 100/25 Blst.W.Dev) 1 puff INHALE RDAILY [facility] Last Admin: 08/23/23 08:17 Dose: 1 puff Documented By: ERIC Furosemide (Furosemide 20 Mg Tablet) 20 mg PO DAILY [facility]; Protocol Last Admin: 08/23/23 07:48 Dose: 20 mg Documented By: ELBA Ceftriaxone Sodium 1 gm/ (Sodium Chloride) 50 mls @ 100 mls/hr IV Q24H [facility] Last Infusion: 08/23/23 15:10 Dose: Infused Documented By: ELBA Doxycycline Hyclate 100 mg/ (Sodium Chloride) 250 mls @ 166.67 mls/hr IV Q12H [facility] Last Admin: 08/23/23 15:18 Dose: 166.67 mls/hr Documented By: ELBA Melatonin (Melatonin 3 Mg Tablet) 6 mg PO BEDTIME PRN PRN Reason: Insomnia Last Admin: 08/22/23 21:21 Dose: 6 mg Documented By: MEHDI Memantine (Memantine Hcl 5 Mg Tablet) 5 mg PO BID [facility] Last Admin: 08/23/23 07:48 Dose: 5 mg Documented By: ELBA Ondansetron HCl (Ondansetron Hcl 4 Mg/2 Ml Vial) 4 mg IVPUSH Q8H PRN PRN Reason: Nausea and Vomiting Last Admin: 08/20/23 20:01 Dose: 4 mg Documented By: SAMI Quetiapine Fumarate (Quetiapine Fumarate 50 Mg Tablet) 50 mg PO DAILY [facility] Last Admin: 08/23/23 07:48 Dose: 50 mg Documented By: ELBA Quetiapine Fumarate (Quetiapine Fumarate 100 Mg Tablet) 100 mg PO BEDTIME [facility] Last Admin: 08/22/23 21:21 Dose: 100 mg Documented By: MEHDI Quetiapine Fumarate (Quetiapine Fumarate 25 Mg Tablet) 25 mg PO BID PRN PRN Reason: anxiety Last Admin: 08/20/23 19:59 Dose: 25 mg Documented By: SAMI Sodium Chloride (0.9 % Sodium Chloride Flush 3 Ml Syringe) 3 ml IVFLUSH QSHIFT [facility] Last Admin: 08/23/23 14:40 Dose: 3 ml Documented By: ELBA Tiotropium [place] (Tiotropium [place] 2.5 Mcg 1 Puff/2.5 Mcg Mist.Inhal) 2 puff INHALE DAILY [facility] Last Admin: 08/23/23 08:17 Dose: 2 puff Documented By: ERIC Trazodone HCl (Trazodone Hcl 50 Mg Tablet) 50 mg PO BEDTIME PRN PRN Reason: Insomnia Last Admin: 08/22/23 21:21 Dose: 50 mg Documented By: MEHDI Labs 08/19/23 13:51 08/23/23 08:02 Labs: Laboratory Results - last 24 hr 08/20/23 14:48 TB Test (T-Spot) Com Negative TB Test Nil Control Passed TB Test Panel A 0 TB Test Panel B 0 TB Test Positive Cntrl Passed Microbiology Microbiology Results: Microbiology 08/20/23 10:40 Gram Stain - Final Pleural Fluid Routine Culture - Final No growth after 2 days Anaerobic Culture - Preliminary No growth to date. Assessment and Plan (1) Pneumonia: Status: Acute Plan 83-year-old male with a PMH significant for COPD on baseline 3L of home O2, HLD/CAD, HTN, and unspecified dementia who presents to the ED for evaluation of increasing SOB and difficulty breathing after testing positive for COVID this morning. Pt will be admitted to the hospital for treatment and further evaluation of COVID with superimposed pneumonia. COVID infection with likely superimposed pneumonia CXR showing right lower lobe infiltrate/atelectasis with small right pleural effusion Not hypoxic, not requiring increased supplemental O2 COVID infection symptomatically, no indication for dexamethasone or remdesivir 08/19:ct chest :increased volume loss to the right hemithorax with shift of the central mediastinal structures to the right. There is right lower lobe atelectasis/consolidation xray post pleural effusion drainage -showed small pneumothorax-repeat cxr-trace pneumothroax(08/23). pleural effusion-s/p thoracentesis, pleural labs reviewed -lympocytic predominance,T spot negative , adenosine deaminase and fluid culture pending . continue pneumonia with ceftriaxone and azithromycin, started 08/19/2023,repeat Cxr in am ,Monitor respiratory status will need Id follow up Fall:circumstances unclear no bruises ct head ,c spine -seems fine ,ch changes. lspine xary-no acute fractures right knee xray-No fracture or dislocation. Mild osteoarthritis in the medial compartment and patellofemoral joint.. continue to moniter with camera/sitter. Pt eval Anxiety vs agitation: as per similar episodes in home also intermittent continue current home regimen ,sitter,monitre closely possible mild chf diastolic dysfuction: Lower leg edema Patient with shortness of breath, right pleural effusion, mildly elevated BNP of 182, and 2+ bilateral pitting lower leg edema Etiology unclear echocardiogram: Technically limited study despite use of contrast agent 2. Normal LV ejection fraction 55-60% with impaired relaxation filling pattern 3. Limited visualization of cardiac valve with normal cardiac valvular Dopplers 4. Mildly elevated right ventricular systolic pressure continue asix . Hypokalemia, mild repletd and resolved. COPD Not in acute exacerbation Continue home inhalers CAD/HLD Continue statin, aspirin, Plavix HTN Continue lisinopril Unspecified dementia/mood disorder Continue memantine, quetiapine DNR/DNI, confirmed with pt and pt's ongoing hospitalization for treatment of?COVID infection with superimposed pneumonia. Given patient's significant comorbidities including COPD, CAD, and unspecified dementia, patient is at significant risk for decompensation without hospitalization and administration of IV antibiotics close monitoring of labs and respiratory status. Quality Stroke Does the patient have a stroke diagnosis?: No VTE Prior VTE?: No VTE Risk Level:: Medical - moderate - high VTE Device Contraindication: Treatment Not Indicated VTE Drug Contraindication: N/A - Med Ordered
--- NOTE | 2023-08-23 15:47 | P.CDIM_ITS ---
PROVIDER RESPONSE TEXT: To clarify, the appropriate diagnosis supported by the clinical indicators: Acute Diastolic CHF QUERY TEXT: PHYSICIAN'S DOCUMENTATION REQUEST Date of Query: 08/23/2023 01:19 PM EST Patient Name: Kvng Leyva Admit Date: 08/19/2023 Dear Natividad Frausto, A review of the medical record indicates additional documentation may be needed. Please review below and update the documentation accordingly. Clinical Indicators: Per Hospitalist Progress Note 08/22/23: possible mild chf diastolic dysfuction: Lower leg edema Patient with shortness of breath, right pleural effusion, mildly elevated BNP of 182, and 2+ bilatera l pitting lower leg edema Etiology unclear echocardiogram: Technically limited study despite use of contrast agent 2. Normal LV ejection fraction 55-60% with impaired relaxation filling pattern 3. Limited visualization of cardiac valve with normal cardiac valvular Dopplers 4. Mildly elevated right ventricular systolic pressure continue Lasix . Clarify which of the following accurately represents the acuity of the CHF. Possible options might include: Acute Diastolic CHF Acute on chronic Diastolic CHF Compensated Diastolic CHF Chronic stable condition Other (explain) Clinically unable to determine (explain) Thank you, Juli Bean RN Use of terms such as suspected, likely, concern for, or probable (associated with a specific diagnosi s that is being evaluated, monitored, or treated as if it exists) are acceptable and can be coded in the inpatient se tting, when documented at the time of discharge. Please use your independent medical judgment in providing your response. THIS QUERY IS PART OF THE PERMANENT MEDICAL RECORD
[2023-08-23] MEDS: QUEtiapine Fumarate 100 MG TABLET PO (21:40)
[2023-08-23] MEDS: Atorvastatin Calcium 10 MG TABLET PO (21:40)
[2023-08-23] MEDS: Benzonatate 100 MG CAPSULE PO (21:46)
[2023-08-23] MEDS: Melatonin 3 MG TABLET 6 MG PO (21:46)
[2023-08-24] VITALS (8 sets, daily range): BP systolic 114–132; BP diastolic 69–90; PULSE 78–92; RESP 18–20; TEMP 36.4–36.8; O2SAT 88–100
[2023-08-24] MEDS: Doxycycline Hyclate 100 MG in 0.9 % Sodium Chloride 250 ML 166.67 MG IV (03:34)
[2023-08-24 06:56] LABS: Hemoglobin 12.5 g/dl (14.0-18.0); Mean Corpuscular HGB Conc 32.1 g/dl (31.0-36.0); Mean Corpuscular Hemoglobin 31.4 pg (27.0-33.0); Mean Platelet Volume 10.9 fL (9.4-12.4); Platelet Count 153 X10*3/uL (160-400); Red Blood Count 3.98 X10*6/uL (4.60-5.80); Red Cell Distribution Width 12.3 % (11.0-16.0); White Blood Count 9.8 X10*3/uL (4.8-10.8)
[2023-08-24 07:13] LABS: Anion Gap 11 (12-20); Blood Urea Nitrogen 26 mg/dL (9-16); Carbon Dioxide 28 mmol/L (22-29); Chloride 106 mmol/L (96-108); Creatinine Clr Calc Pharmacy 65.6; Estimated Glomerular Filt Rate > 60; Glucose Random 99 mg/dL (60-115); Potassium 3.5 mmol/L (3.3-5.1); Sodium 141 mmol/L (135-145)
[2023-08-24] MEDS: Fluticasone/Vilanterol 100/25 BLST.W.DEV 1 PUFF INHALE (08:09)
[2023-08-24] MEDS: Tiotropium Bromide 2.5 mcg 1 PUFF/2.5 MCG MIST.INHAL 2 PUFF INHALE (08:09)
[2023-08-24] MEDS: Albuterol/Iprat 2.5/0.5MG 3 ML AMPUL.NEB INHALE ×2 (08:09→19:44)
[2023-08-24 09:30] LABS: Lactate Dehydrogenase 194 U/L (118-273); Total Protein 5.6 g/dL (6.5-8.0)
[2023-08-24] MEDS: Aspirin Enteric Coated 81 MG TABLET.DR PO (09:45)
[2023-08-24] MEDS: amLODIPine Besylate 5 MG TABLET PO (09:46)
[2023-08-24] MEDS: Memantine HCl 5 MG TABLET PO ×2 (09:46→22:06)
[2023-08-24] MEDS: Clopidogrel Bisulfate 75 MG TABLET PO (09:46)
[2023-08-24] MEDS: Furosemide 20 MG TABLET PO (09:46)
[2023-08-24] MEDS: QUEtiapine Fumarate 50 MG TABLET PO (09:48)
[2023-08-24 09:52] LABS: Procalcitonin 0.05 ng/mL
--- NOTE | 2023-08-24 15:14 | P.PNIM_ITS ---
Subjective Subjective Date of Service: 08/24/23 Interval History: chronic cough chronic dyspnea per nursing staff pt chronically on 3L O2 denies fever or chest pain Review of Systems Review of Systems: Yes all other systems are reviewed and are negative Physical Exam 2 Vital Signs: Vital Signs: Last Vital Signs Temp 97.6 F 08/24/23 11:31 Pulse 83 08/24/23 11:31 Resp 18 08/24/23 11:31 BP 132/78 08/24/23 11:31 Pulse Ox 98 08/24/23 11:31 O2 Del Method Nasal Cannula 08/24/23 11:31 O2 Flow Rate 2 08/24/23 11:31 Oxygen Flow Rate 3 08/19/23 14:16 BMI result Body Mass Index 24.7 Gen: in no acute distress HEENT: sclera anicteric, moist mucus membranes Neck: supple Lungs: diminished R base Heart: regular rate and rhythm, no murmurs Abd: soft, non-tender, non-distended Ext: no edema Skin: warm/well-perfused Neuro: alert and oriented x3, no focal findings Psych: appropriate affect Objective Data Active Medications Acetaminophen (Acetaminophen 325 Mg Tablet) 650 mg PO Q6H PRN PRN Reason: Pain, Mild (Pain Scale 1-3) Last Admin: 08/22/23 21:21 Dose: 650 mg Documented By: MEHDI Albuterol Sulfate (Albuterol Sulfate 90 Mcg 8 Gm Inhaler) 2 puff INHALE RQ6H PRN PRN Reason: shortness of breath or wheezing Albuterol/Ipratropium (Albuterol/Iprat 2.5/0.5mg 3 Ml Ampul.Neb) 3 ml INHALE BID [facility] Last Admin: 08/24/23 08:09 Dose: 3 ml Documented By: MILI Albuterol/Ipratropium (Albuterol/Iprat 2.5/0.5mg 3 Ml Ampul.Neb) 3 ml INHALE RQ4H PRN PRN Reason: wheezing Amlodipine Besylate (Amlodipine Besylate 5 Mg Tablet) 5 mg PO DAILY [facility]; Protocol Last Admin: 08/24/23 09:46 Dose: 5 mg Documented By: ELSIE Aspirin (Aspirin Enteric Coated 81 Mg Tablet.) 81 mg PO DAILY [facility] Last Admin: 08/24/23 09:45 Dose: 81 mg Documented By: ELSIE Atorvastatin Calcium (Atorvastatin Calcium 10 Mg Tablet) 10 mg PO BEDTIME [facility] Last Admin: 08/23/23 21:40 Dose: 10 mg Documented By: LETA Benzonatate (Benzonatate 100 Mg Capsule) 100 mg PO TID PRN PRN Reason: Cough Last Admin: 08/23/23 21:46 Dose: 100 mg Documented By: LETA Clopidogrel Bisulfate (Clopidogrel Bisulfate 75 Mg Tablet) 75 mg PO DAILY [facility] Last Admin: 08/24/23 09:46 Dose: 75 mg Documented By: ELSIE Docusate Sodium (Docusate Sodium 100 Mg Capsule) 100 mg PO DAILY PRN PRN Reason: Constipation Doxycycline Monohydrate (Doxycycline Monohydrate 100 Mg Capsule) 100 mg PO Q12H [facility] Enoxaparin Sodium (Enoxaparin Sodium 40 Mg/0.4 Ml Syringe) 40 mg SUBCUT Q24H [facility] Last Admin: 08/19/23 19:21 Dose: 40 mg Documented By: VICKI Fluticasone/Vilanterol (Fluticasone/Vilanterol 100/25 Blst.W.Dev) 1 puff INHALE RDAILY [facility] Last Admin: 08/24/23 08:09 Dose: 1 puff Documented By: MILI Furosemide (Furosemide 20 Mg Tablet) 20 mg PO DAILY [facility]; Protocol Last Admin: 08/24/23 09:46 Dose: 20 mg Documented By: ELSIE Guaifenesin (Guaifenesin [place] 600 Mg Tab.Er.12h) 600 mg PO BID PRN PRN Reason: Cough Ceftriaxone Sodium 1 gm/ (Sodium Chloride) 50 mls @ 100 mls/hr IV Q24H [facility] Last Infusion: 08/23/23 15:10 Dose: Infused Documented By: ELBA Melatonin (Melatonin 3 Mg Tablet) 6 mg PO BEDTIME PRN PRN Reason: Insomnia Last Admin: 08/23/23 21:46 Dose: 6 mg Documented By: LETA Memantine (Memantine Hcl 5 Mg Tablet) 5 mg PO BID [facility] Last Admin: 08/24/23 09:46 Dose: 5 mg Documented By: ELSIE Ondansetron HCl (Ondansetron Hcl 4 Mg/2 Ml Vial) 4 mg IVPUSH Q8H PRN PRN Reason: Nausea and Vomiting Last Admin: 08/20/23 20:01 Dose: 4 mg Documented By: SAMI Quetiapine Fumarate (Quetiapine Fumarate 50 Mg Tablet) 50 mg PO DAILY [facility] Last Admin: 08/24/23 09:48 Dose: 50 mg Documented By: TOMASZTEKMartinez Quetiapine Fumarate (Quetiapine Fumarate 100 Mg Tablet) 100 mg PO BEDTIME [facility] Last Admin: 08/23/23 21:40 Dose: 100 mg Documented By: LETA Quetiapine Fumarate (Quetiapine Fumarate 25 Mg Tablet) 25 mg PO BID PRN PRN Reason: anxiety Last Admin: 08/20/23 19:59 Dose: 25 mg Documented By: SAMI Sodium Chloride (0.9 % Sodium Chloride Flush 3 Ml Syringe) 3 ml IVFLUSH QSHIFT [facility] Last Admin: 08/24/23 09:56 Dose: Not Given Documented By: REBECCA Non-Admin Reason: No IV access Tiotropium [place] (Tiotropium [place] 2.5 Mcg 1 Puff/2.5 Mcg Mist.Inhal) 2 puff INHALE DAILY [facility] Last Admin: 08/24/23 08:09 Dose: 2 puff Documented By: MILI Trazodone HCl (Trazodone Hcl 50 Mg Tablet) 50 mg PO BEDTIME PRN PRN Reason: Insomnia Last Admin: 08/22/23 21:21 Dose: 50 mg Documented By: COTEMA Labs 08/24/23 06:27 08/24/23 06:27 Labs: Laboratory Results - last 24 hr 08/24/23 06:27 MCV 98.0 MCH 31.4 MCHC 32.1 RDW 12.3 Plt Count 153 L MPV 10.9 Absolute Nucleated RBC 0.000 Nucleated RBC % (auto) 0.0 Anion Gap 11 L Estim Creat Clear Calc 65.6 Estimated GFR > 60 Random Glucose 99 Calcium 8.0 L Lactate Dehydrogenase 194 Total Protein 5.6 L Procalcitonin 0.05 Microbiology Microbiology Results: Microbiology 08/20/23 10:40 Gram Stain - Final Pleural Fluid Routine Culture - Final No growth after 2 days Anaerobic Culture - Preliminary No growth to date. Assessment and Plan (1) Pneumonia: Status: Acute Plan d6 83yo M with COPD on 3L O2, HLD, CAD, HTN, dementia presenting with increasing dyspnea admitted for Covid-19 with superimposed PNA Covid-19 infection with superimposed pneumonia + pleural effusion - no new/worsening O2 requirement so did not get dexamethasone - did not get remdesivir due to unknown duration per prior hospitalist and ID sap security consultant - thoracentesis done 08/20, culture negative, tiny apical PTX since then, repeat CXR today - ceftriaxone 08/19-, doxycycline 08/21- - BCx negative, PCT low acute HFpEF - TTE 08/20: 1. Technically limited study despite use of contrast agent 2. Normal LV ejection fraction 55-60% with impaired relaxation filling pattern 3. Limited visualization of cardiac valve with normal cardiac valvular Dopplers 4. Mildly elevated right ventricular systolic pressure - now on PO furosemide hypoK - repleted CAD - ASA, clopidogrel, statin COPD - continue tiotropium, Breo, prn albuterol HTN - amlodipine dementia - memantine, quetiapine VTE ppx - LMWH dispo - STR recomended In my clinical judgment, the patient requires continued inpatient hospitalization for the following reasons: PTX Total time managing care of this patient today: 35 minutes. Quality Stroke Does the patient have a stroke diagnosis?: No VTE Prior VTE?: No VTE Risk Level:: Medical - moderate - high VTE Device Contraindication: Treatment Not Indicated VTE Drug Contraindication: N/A - Med Ordered
[2023-08-24] MEDS: 0.9 % Sodium Chloride Flush 3 ML SYRINGE IVFLUSH ×2 (15:55→22:06)
[2023-08-24] MEDS: cefTRIAXone sodium 1 GM in 0.9 % Sodium Chloride 50 ML IV (15:55)
[2023-08-24] MEDS: Doxycycline Monohydrate 100 MG CAPSULE PO (15:58)
[2023-08-24] MEDS: Melatonin 3 MG TABLET 6 MG PO (22:06)
[2023-08-24] MEDS: Atorvastatin Calcium 10 MG TABLET PO (22:06)
[2023-08-24] MEDS: QUEtiapine Fumarate 100 MG TABLET PO (22:06)
[2023-08-25] VITALS (11 sets, daily range): BP systolic 90–131; BP diastolic 58–84; PULSE 70–102; RESP 16–20; TEMP 36–36.8; O2SAT 92–98
[2023-08-25] MEDS: Doxycycline Monohydrate 100 MG CAPSULE PO ×2 (03:28→17:46)
[2023-08-25 07:13] LABS: Anion Gap 10 (12-20); Blood Urea Nitrogen 30 mg/dL (9-16); Calcium 8.1 mg/dL (8.4-10.2); Carbon Dioxide 33 mmol/L (22-29); Chloride 102 mmol/L (96-108); Creatinine Clr Calc Pharmacy 50.6; Estimated Glomerular Filt Rate > 60; Glucose Random 97 mg/dL (60-115); Magnesium 1.7 mg/dL (1.6-2.6); Potassium 3.2 mmol/L (3.3-5.1); Sodium 142 mmol/L (135-145)
[2023-08-25 07:23] LABS: B Type Natriuretic Peptide 137 pg/mL (<100)
[2023-08-25] MEDS: Tiotropium Bromide 2.5 mcg 1 PUFF/2.5 MCG MIST.INHAL 2 PUFF INHALE (08:04)
[2023-08-25] MEDS: Fluticasone/Vilanterol 100/25 BLST.W.DEV 1 PUFF INHALE (08:04)
[2023-08-25] MEDS: Albuterol/Iprat 2.5/0.5MG 3 ML AMPUL.NEB INHALE ×2 (08:05→20:18)
[2023-08-25] MEDS: Potassium Chloride Packet 20 MEQ PACKET 40 MEQ PO (08:25)
[2023-08-25] MEDS: Memantine HCl 5 MG TABLET PO ×2 (08:26→19:55)
[2023-08-25] MEDS: 0.9 % Sodium Chloride Flush 3 ML SYRINGE IVFLUSH ×3 (08:26→22:47)
[2023-08-25] MEDS: Aspirin Enteric Coated 81 MG TABLET.DR PO (08:26)
[2023-08-25] MEDS: QUEtiapine Fumarate 50 MG TABLET PO (08:27)
[2023-08-25] MEDS: amLODIPine Besylate 5 MG TABLET PO (08:27)
[2023-08-25] MEDS: Clopidogrel Bisulfate 75 MG TABLET PO (08:27)
[2023-08-25] MEDS: Furosemide 20 MG TABLET PO (08:27)
--- NOTE | 2023-08-25 10:15 | P.PNIM_ITS ---
Subjective Subjective Date of Service: 08/25/23 Interval History: chronic dyspnea + cough no fever no chest pain Review of Systems Review of Systems: Yes all other systems are reviewed and are negative Physical Exam 2 Vital Signs: Vital Signs: Last Vital Signs Temp 97.4 F 08/25/23 08:00 Pulse 82 08/25/23 08:06 Resp 16 08/25/23 08:06 BP 119/71 08/25/23 08:00 Pulse Ox 97 08/25/23 08:00 O2 Del Method Nasal Cannula 08/25/23 08:00 O2 Flow Rate 2 08/25/23 08:00 Oxygen Flow Rate 3 08/19/23 14:16 BMI result Body Mass Index 24.7 Gen: in no acute distress HEENT: sclera anicteric, moist mucus membranes Neck: supple Lungs: diminished R base Heart: regular rate and rhythm, no murmurs Abd: soft, non-tender, non-distended Ext: no edema Skin: warm/well-perfused Neuro: alert and oriented x3, no focal findings Psych: appropriate affect Objective Data Active Medications Acetaminophen (Acetaminophen 325 Mg Tablet) 650 mg PO Q6H PRN PRN Reason: Pain, Mild (Pain Scale 1-3) Last Admin: 08/22/23 21:21 Dose: 650 mg Documented By: MEHDI Albuterol Sulfate (Albuterol Sulfate 90 Mcg 8 Gm Inhaler) 2 puff INHALE RQ6H PRN PRN Reason: shortness of breath or wheezing Albuterol/Ipratropium (Albuterol/Iprat 2.5/0.5mg 3 Ml Ampul.Neb) 3 ml INHALE BID [facility] Last Admin: 08/25/23 08:05 Dose: 3 ml Documented By: MILI Albuterol/Ipratropium (Albuterol/Iprat 2.5/0.5mg 3 Ml Ampul.Neb) 3 ml INHALE RQ4H PRN PRN Reason: wheezing Amlodipine Besylate (Amlodipine Besylate 5 Mg Tablet) 5 mg PO DAILY [facility]; Protocol Last Admin: 08/25/23 08:27 Dose: 5 mg Documented By: YANIV Aspirin (Aspirin Enteric Coated 81 Mg Tablet.) 81 mg PO DAILY [facility] Last Admin: 08/25/23 08:26 Dose: 81 mg Documented By: YANIV Atorvastatin Calcium (Atorvastatin Calcium 10 Mg Tablet) 10 mg PO BEDTIME [facility] Last Admin: 08/24/23 22:06 Dose: 10 mg Documented By: CRISTY Benzonatate (Benzonatate 100 Mg Capsule) 100 mg PO TID PRN PRN Reason: Cough Last Admin: 08/23/23 21:46 Dose: 100 mg Documented By: LETA Clopidogrel Bisulfate (Clopidogrel Bisulfate 75 Mg Tablet) 75 mg PO DAILY [facility] Last Admin: 08/25/23 08:27 Dose: 75 mg Documented By: YANIV Docusate Sodium (Docusate Sodium 100 Mg Capsule) 100 mg PO DAILY PRN PRN Reason: Constipation Doxycycline Monohydrate (Doxycycline Monohydrate 100 Mg Capsule) 100 mg PO Q12H [facility] Last Admin: 08/25/23 03:28 Dose: 100 mg Documented By: CRISTY Enoxaparin Sodium (Enoxaparin Sodium 40 Mg/0.4 Ml Syringe) 40 mg SUBCUT Q24H [facility] Last Admin: 08/19/23 19:21 Dose: 40 mg Documented By: VICKI Fluticasone/Vilanterol (Fluticasone/Vilanterol 100/25 Blst.W.Dev) 1 puff INHALE RDAILY [facility] Last Admin: 08/25/23 08:04 Dose: 1 puff Documented By: MILI Furosemide (Furosemide 20 Mg Tablet) 20 mg PO DAILY [facility]; Protocol Last Admin: 08/25/23 08:27 Dose: 20 mg Documented By: YANIV Guaifenesin (Guaifenesin [place] 600 Mg Tab.Er.12h) 600 mg PO BID PRN PRN Reason: Cough Ceftriaxone Sodium 1 gm/ (Sodium Chloride) 50 mls @ 100 mls/hr IV Q24H [facility] Last Infusion: 08/24/23 16:44 Dose: Infused Documented By: FOSTEKMartinez Melatonin (Melatonin 3 Mg Tablet) 6 mg PO BEDTIME PRN PRN Reason: Insomnia Last Admin: 08/24/23 22:06 Dose: 6 mg Documented By: CRISTY Memantine (Memantine Hcl 5 Mg Tablet) 5 mg PO BID [facility] Last Admin: 08/25/23 08:26 Dose: 5 mg Documented By: YANIV Ondansetron HCl (Ondansetron Hcl 4 Mg/2 Ml Vial) 4 mg IVPUSH Q8H PRN PRN Reason: Nausea and Vomiting Last Admin: 08/20/23 20:01 Dose: 4 mg Documented By: SAMI Quetiapine Fumarate (Quetiapine Fumarate 50 Mg Tablet) 50 mg PO DAILY [facility] Last Admin: 08/25/23 08:27 Dose: 50 mg Documented By: YANIV Quetiapine Fumarate (Quetiapine Fumarate 100 Mg Tablet) 100 mg PO BEDTIME [facility] Last Admin: 08/24/23 22:06 Dose: 100 mg Documented By: CRISTY Quetiapine Fumarate (Quetiapine Fumarate 25 Mg Tablet) 25 mg PO BID PRN PRN Reason: anxiety Last Admin: 08/20/23 19:59 Dose: 25 mg Documented By: SAMI Sodium Chloride (0.9 % Sodium Chloride Flush 3 Ml Syringe) 3 ml IVFLUSH QSHIFT [facility] Last Admin: 08/25/23 08:26 Dose: 3 ml Documented By: YANIV Tiotropium [place] (Tiotropium [place] 2.5 Mcg 1 Puff/2.5 Mcg Mist.Inhal) 2 puff INHALE DAILY [facility] Last Admin: 08/25/23 08:04 Dose: 2 puff Documented By: MILI Trazodone HCl (Trazodone Hcl 50 Mg Tablet) 50 mg PO BEDTIME PRN PRN Reason: Insomnia Last Admin: 08/22/23 21:21 Dose: 50 mg Documented By: COTEMA Labs 08/24/23 06:27 08/25/23 06:21 Labs: Laboratory Results - last 24 hr 08/25/23 06:21 Anion Gap 10 L Estim Creat Clear Calc 50.6 Estimated GFR > 60 Random Glucose 97 Calcium 8.1 L Magnesium 1.7 B-Natriuretic Peptide 137 H Microbiology Microbiology Results: Microbiology 08/20/23 10:40 Gram Stain - Final Pleural Fluid Routine Culture - Final No growth after 2 days Anaerobic Culture - Final NO GROWTH AFTER 5 DAYS 08/19/23 14:30 Blood Culture - Final Blood - Venous No growth after 5 days. 08/19/23 14:30 Blood Culture - Final Blood - Venous No growth after 5 days. Assessment and Plan (1) Pneumonia: Status: Acute Plan d7 83yo M with COPD on 3L O2, HLD, CAD, HTN, dementia presenting with increasing dyspnea admitted for Covid-19 with superimposed PNA Covid-19 infection with superimposed pneumonia + pleural effusion - no new/worsening O2 requirement so did not get dexamethasone - did not get remdesivir due to unknown duration per prior hospitalist and ID consultant technology - thoracentesis done 08/20, culture negative, tiny apical PTX that has persisted, will consult Thoracic Surgery - ceftriaxone 08/19-08/27, doxycycline 08/21-08/26 - BCx negative, PCT low acute HFpEF - TTE 08/20: 1. Technically limited study despite use of contrast agent 2. Normal LV ejection fraction 55-60% with impaired relaxation filling pattern 3. Limited visualization of cardiac valve with normal cardiac valvular Dopplers 4. Mildly elevated right ventricular systolic pressure - now on PO furosemide hypoK - replete PO, recheck level in AM chronic hypoxic resp failure - on 3L O2 CAD - ASA, clopidogrel, statin COPD - continue tiotropium, Breo, prn albuterol HTN - amlodipine dementia - memantine, quetiapine VTE ppx - LMWH dispo - STR recommended In my clinical judgment, the patient requires continued inpatient hospitalization for the following reasons: PTX Total time managing care of this patient today: 35 minutes. Quality Stroke Does the patient have a stroke diagnosis?: No VTE Prior VTE?: No VTE Risk Level:: Medical - moderate - high VTE Device Contraindication: Treatment Not Indicated VTE Drug Contraindication: N/A - Med Ordered
--- NOTE | 2023-08-25 10:39 | HO.THORCONS ---
Documented by User: Smitha Elizondo PA-C 08/25/23 11:08 History of Present Illness Consult details Consult date: 08/25/23 Requesting physician: Gracie Lipscomb Narrative: Mr. Leyva is an 83-year-old male with a PMH significant for COPD on 3L of home O2 at baseline, HLD/CAD, unspecified dementia who initially presented to the ED for evaluation of increasing shortness of breath. Patient began feeling ill the week prior to presentation with productive cough, difficulty breathing, and increasing shortness of breath. His tested positive for COVID-19 the week prior and he tested positive the morning of presentation. He was found to have a right lower lobe infiltrate/atelectasis with right pleural effusion on CXR. He was admitted to the hospitalist service for further treatment of COVID with superimposed pneumonia. He underwent right thoracentesis on 08/20/23. Follow up CXR showed resolution of the right pleural effusion but a small right pneumothorax. Serial CXRs have redemonstrated a persistent small right apical pneumothorax. This morning, he reports he feels back to his baseline. He is on 3L supplemental O2 via [place]. He denies shortness of breath at rest but mild with activity like ambulating to the bathroom which is normal for him. Review of Systems Constitutional: Constitutional: Denies chills and Denies fever(s) ENT: Denies dizziness Cardiovascular: Cardiovascular: Denies chest pain Respiratory: Respiratory: Reports as per HPI Gastrointestinal: Gastrointestinal: Denies abdominal pain, Denies nausea and Denies vomiting Integumentary/Breasts: Skin/Breast: Denies rash and Denies jaundice Neurologic: Denies dizziness PMFSH Past Medical History Medical History Hypoxemia COPD (chronic obstructive pulmonary disease) Pulmonary emphysema Osteopenia Hyperparathyroidism Osteoporosis Vitamin D deficiency Multinodular thyroid Family History Family History Father No problems noted. Mother No problems noted. Family history: reviewed and not pertinent Surgical History Surgical History Hx of prostatectomy Hx of hernia repair Social History Social History Household Members: Family Household Members Other:: 2 Housing: House Do you presently have visiting nurse or other home services: Yes Alcohol intake: never Comment: 1:1 sitter Patient Tobacco Use Status: Former Tobacco user Quit Date: 35 years Tobacco use type: Cigarette Smoked in Last 30 Days: No Use of substances other than those prescribed or required for medical reasons: No Currently Displaying Signs/Symptoms of Drug Intoxication Withdrawal: No Any prior treatment program specific to substance use: No Have you been hit, kicked, punched, or otherwise hurt by someone within the past year? If so, by whom?: No Do you feel safe in your current relationship?: Yes Is there a partner from a previous relationship who is making you feel unsafe now?: No Are you made to feel afraid or neglected: No Advance Directives: Yes Advance Directives on File: Yes Advance Directives Date on File: 02/28/23 Do you have thoughts of harming others: None Do you have a plan to hurt others: No Plan Recently lost weight without trying: No Eating poorly because of decreased appetite: No Nutrition Risks: No Nutritional Risk Poor oral hygiene: No service: No Sexual orientation: Straight/Heterosexual Meds Allergies Allergy/AdvReac Type Severity Reaction Status Date / Time No Known Allergies Allergy Mild NONE Verified 08/19/23 14:17 cats dogs ragweed dust pollen Allergy Unknown Unknown Uncoded 08/19/23 14:17 Active Medications: Current Medications Acetaminophen (Acetaminophen 325 Mg Tablet) 650 mg PO Q6H PRN PRN Reason: Pain, Mild (Pain Scale 1-3) Last Admin: 08/22/23 21:21 Dose: 650 mg Albuterol Sulfate (Albuterol Sulfate 90 Mcg 8 Gm Inhaler) 2 puff INHALE RQ6H PRN PRN Reason: shortness of breath or wheezing Albuterol/Ipratropium (Albuterol/Iprat 2.5/0.5mg 3 Ml Ampul.Neb) 3 ml INHALE BID [facility] Last Admin: 08/25/23 08:05 Dose: 3 ml Albuterol/Ipratropium (Albuterol/Iprat 2.5/0.5mg 3 Ml Ampul.Neb) 3 ml INHALE RQ4H PRN PRN Reason: wheezing Amlodipine Besylate (Amlodipine Besylate 5 Mg Tablet) 5 mg PO DAILY [facility]; Protocol Last Admin: 08/25/23 08:27 Dose: 5 mg Aspirin (Aspirin Enteric Coated 81 Mg Tablet.Dr) 81 mg PO DAILY [facility] Last Admin: 08/25/23 08:26 Dose: 81 mg Atorvastatin Calcium (Atorvastatin Calcium 10 Mg Tablet) 10 mg PO BEDTIME [facility] Last Admin: 08/24/23 22:06 Dose: 10 mg Benzonatate (Benzonatate 100 Mg Capsule) 100 mg PO TID PRN PRN Reason: Cough Last Admin: 08/23/23 21:46 Dose: 100 mg Clopidogrel Bisulfate (Clopidogrel Bisulfate 75 Mg Tablet) 75 mg PO DAILY [facility] Last Admin: 08/25/23 08:27 Dose: 75 mg Docusate Sodium (Docusate Sodium 100 Mg Capsule) 100 mg PO DAILY PRN PRN Reason: Constipation Doxycycline Monohydrate (Doxycycline Monohydrate 100 Mg Capsule) 100 mg PO Q12H [facility] Last Admin: 08/25/23 03:28 Dose: 100 mg Enoxaparin Sodium (Enoxaparin Sodium 40 Mg/0.4 Ml Syringe) 40 mg SUBCUT Q24H [facility] Last Admin: 08/19/23 19:21 Dose: 40 mg Fluticasone/Vilanterol (Fluticasone/Vilanterol 100/25 Blst.W.Dev) 1 puff INHALE RDAILY [facility] Last Admin: 08/25/23 08:04 Dose: 1 puff Furosemide (Furosemide 20 Mg Tablet) 20 mg PO DAILY [facility]; Protocol Last Admin: 08/25/23 08:27 Dose: 20 mg Guaifenesin (Guaifenesin La 600 Mg Tab.Er.12h) 600 mg PO BID PRN PRN Reason: Cough Ceftriaxone Sodium 1 gm/ (Sodium Chloride) 50 mls @ 100 mls/hr IV Q24H [facility] Last Infusion: 08/24/23 16:44 Dose: Infused Melatonin (Melatonin 3 Mg Tablet) 6 mg PO BEDTIME PRN PRN Reason: Insomnia Last Admin: 08/24/23 22:06 Dose: 6 mg Memantine (Memantine Hcl 5 Mg Tablet) 5 mg PO BID [facility] Last Admin: 08/25/23 08:26 Dose: 5 mg Ondansetron HCl (Ondansetron Hcl 4 Mg/2 Ml Vial) 4 mg IVPUSH Q8H PRN PRN Reason: Nausea and Vomiting Last Admin: 08/20/23 20:01 Dose: 4 mg Quetiapine Fumarate (Quetiapine Fumarate 50 Mg Tablet) 50 mg PO DAILY [facility] Last Admin: 08/25/23 08:27 Dose: 50 mg Quetiapine Fumarate (Quetiapine Fumarate 100 Mg Tablet) 100 mg PO BEDTIME [facility] Last Admin: 08/24/23 22:06 Dose: 100 mg Quetiapine Fumarate (Quetiapine Fumarate 25 Mg Tablet) 25 mg PO BID PRN PRN Reason: anxiety Last Admin: 08/20/23 19:59 Dose: 25 mg Sodium Chloride (0.9 % Sodium Chloride Flush 3 Ml Syringe) 3 ml IVFLUSH QSHIFT [facility] Last Admin: 08/25/23 08:26 Dose: 3 ml Tiotropium [place] (Tiotropium [place] 2.5 Mcg 1 Puff/2.5 Mcg Mist.Inhal) 2 puff INHALE DAILY [facility] Last Admin: 08/25/23 08:04 Dose: 2 puff Trazodone HCl (Trazodone Hcl 50 Mg Tablet) 50 mg PO BEDTIME PRN PRN Reason: Insomnia Last Admin: 08/22/23 21:21 Dose: 50 mg Home Medications Medication Instructions Recorded Confirmed Last Taken Type ipratropium 0.5 mg-albuterol 3 mg 3 ml inhalation BID wheezing 08/19/23 08/19/23 08/19/23 History (2.5 mg base)/3 mL nebulization soln ipratropium 0.5 mg-albuterol 3 mg 3 ml inhalation Q4-6H PRN wheezing 08/19/23 08/19/23 Unknown History (2.5 mg base)/3 mL nebulization soln trazodone 50 mg tablet 50 mg PO BEDTIME PRN Insomnia 08/20/23 08/20/23 Unknown History Physical Exam Vital Signs: Vital Signs: Last Vital Signs Temp 97.4 F 08/25/23 08:00 Pulse 82 08/25/23 08:06 Resp 16 08/25/23 08:06 BP 119/71 08/25/23 08:00 Pulse Ox 97 08/25/23 08:00 O2 Del Method Nasal Cannula 08/25/23 08:00 O2 Flow Rate 2 08/25/23 08:00 Oxygen Flow Rate 3 08/19/23 14:16 BMI result Body Mass Index 24.7 Const: General: comfortable, no acute distress and alert Orientation/consciousness: oriented to person Neck: Neck: Yes trachea midline and Yes no JVD Chest: Chest palpation & inspection: normal inspection of the chest Resp: Effort & Inspection: normal respiratory effort, able to speak in complete sentences, no respiratory distress, no use of accessory muscles and symmetric chest movement Cardio: Rate: regular rate Skin: General skin exam: no rashes or lesions noted Neuro: General: oriented to person and moves all extremities Results Labs 08/24/23 06:27 08/25/23 06:21 Labs: Abnormal lab results 08/25/23 Range/Units 06:21 Potassium 3.2 L (3.3-5.1) mmol/L Carbon Dioxide 33 H (22-29) mmol/L Anion Gap 10 L (12-20) BUN 30 H (9-16) mg/dL Calcium 8.1 L (8.4-10.2) mg/dL B-Natriuretic Peptide 137 H (<100) pg/mL BMP 08/25/23 06:21 Sodium 142 Potassium 3.2 L Chloride 102 Carbon Dioxide 33 H BUN 30 H Creatinine 1.14 Calcium 8.1 L All other labs normal. Imaging Chest x-ray: report reviewed and image reviewed CT scan - chest: report reviewed and image reviewed Assessment and Plan (1) COVID-19: Status: Acute (2) COPD (chronic obstructive pulmonary disease): Status: Acute Plan 83 year old male with COPD on 3L home O2 at baseline admitted with COVID-19 and pneumonia found to have right pleural effusion on imaging s/p right thoracentesis on 08/20. Subsequently developed a very small right pneumothorax which has persisted. Patient is not in any respiratory distress and appears to be back to his baseline from a respiratory standpoint. 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 Procedures Date of Service Date of Service: 08/25/23 Documented by User: Zane Polk MD 08/25/23 12:56 [facility] Past Medical History Medical History Hypoxemia COPD (chronic obstructive pulmonary disease) Pulmonary emphysema Osteopenia Hyperparathyroidism Osteoporosis Vitamin D deficiency Multinodular thyroid Family History Family History Father No problems noted. Mother No problems noted. Surgical History Surgical History Hx of prostatectomy Hx of hernia repair Social History Social History Household Members: Family Household Members Other:: 2 Housing: House Do you presently have visiting nurse or other home services: Yes Alcohol intake: never Comment: 1:1 sitter Patient Tobacco Use Status: Former Tobacco user Quit Date: 35 years Tobacco use type: Cigarette Smoked in Last 30 Days: No Use of substances other than those prescribed or required for medical reasons: No Currently Displaying Signs/Symptoms of Drug Intoxication Withdrawal: No Any prior treatment program specific to substance use: No Have you been hit, kicked, punched, or otherwise hurt by someone within the past year? If so, by whom?: No Do you feel safe in your current relationship?: Yes Is there a partner from a previous relationship who is making you feel unsafe now?: No Are you made to feel afraid or neglected: No Advance Directives: Yes Advance Directives on File: Yes Advance Directives Date on File: 02/28/23 Do you have thoughts of harming others: None Do you have a plan to hurt others: No Plan Recently lost weight without trying: No Eating poorly because of decreased appetite: No Nutrition Risks: No Nutritional Risk Poor oral hygiene: No service: No Sexual orientation: Straight/Heterosexual Meds Allergies Allergy/AdvReac Type Severity Reaction Status Date / Time No Known Allergies Allergy Mild NONE Verified 08/19/23 14:17 cats dogs ragweed dust pollen Allergy Unknown Unknown Uncoded 08/19/23 14:17 Home Medications Medication Instructions Recorded Confirmed Last Taken Type ipratropium 0.5 mg-albuterol 3 mg 3 ml inhalation BID wheezing 08/19/23 08/19/23 08/19/23 History (2.5 mg base)/3 mL nebulization soln ipratropium 0.5 mg-albuterol 3 mg 3 ml inhalation Q4-6H PRN wheezing 08/19/23 08/19/23 Unknown History (2.5 mg base)/3 mL nebulization soln trazodone 50 mg tablet 50 mg PO BEDTIME PRN Insomnia 08/20/23 08/20/23 Unknown History Results Labs 08/24/23 06:27 08/25/23 06:21 Assessment and Plan (1) COVID-19: Status: Acute (2) COPD (chronic obstructive pulmonary disease): Status: Acute Procedures Date of Service Date of Service: 08/25/23
--- NOTE | 2023-08-25 12:47 | MHC.CM.PN ---
Addendum entered by Jessi Lopez 08/25/23 15:14: Provider in agreement with pt going home with services, referrals out, pt accepted by [facility], pt and in agreement to this agency. Original Note: Pt is not yet ready for DC, CM will follow to determine if DC plan will be STR or home with VNA, pt and family prefer he go home.
--- NOTE | 2023-08-25 16:48 | HO.WOUND ---
Wound Consult: Initial 83yr old?M admitted to [facility] [place] on 08[place]19/23 - See progress notes and H&P for detailed history.? Wound consult placed for .? Patient agreeable to assessment and photo documentation.? Right Hip / Trochanter Etiology: Suspected Stage 2 Pressure Injury - ??Present on Admission Measurements: see charting for detailed measurement Wound Bed: difficult to assess based on triad application - appears to be partial thickness tissue loss at this time. Hyperpigmentation noted to the periwound - light purple in pigmentation nonblanchable evidence of resolving injury - may have been full thickness tissue loss at one point - pt is not able to recall injury but reports he believes it is from things rubbing over the bone Drainage / Odor: scant serosang noted on foam dressing when removed Edges: irregular? Gina wound: ?Hyperpigmentation noted - no erythema, no Induration, Fluctuance or Warmth noted Pain: denies Goals of Treatment: ? Moist autolytic wound healing with Triad and foam dressing - off load pressure Will continue to follow to assess wound bed. Recommendations: 1. Turn and Reposition every 2 hours and as needed for patient comfort.? Use pillows or wedges to support off loading positions. 2. Off Load all bony prominences with use of pillows and heel boots if needed.? Apply Preventative foams where needed. ? 3. Monitor for incontinence and moisture control, use barrier creams when needed for prevention and treatment. 4. Provide adequate and supplemental nutrition.? 5. Order low air loss mattress. 6. When applicable maintain blood glucose levels per Providers order. 7. Right Hip / Trochanter - Off Load Pressure - Cleanse with PH balance spray or wipes, pat dry. ?Apply thin layer of Triad to wound bed. Do not remove all of paste between applications as this may cause further skin damage.? Cover with foam dressing to aid in off loading and protection from friction. Change every other day. Re-consult wound care Nurse for wound deterioration or wound changes.
[2023-08-25] MEDS: cefTRIAXone sodium 1 GM in 0.9 % Sodium Chloride 50 ML IV (17:46)
[2023-08-25] MEDS: Melatonin 3 MG TABLET 6 MG PO (19:54)
[2023-08-25] MEDS: Atorvastatin Calcium 10 MG TABLET PO (19:55)
[2023-08-25] MEDS: QUEtiapine Fumarate 100 MG TABLET PO (19:55)
[2023-08-26 03:04] VITALS: BP 104/67; PULSE 70; RESP 18; TEMP 36.1; O2SAT 98
[2023-08-26] MEDS: Doxycycline Monohydrate 100 MG CAPSULE PO (05:14)
--- NOTE | 2023-08-26 06:08 | PC.NURSE ---
Patient had a 19-beat run of asymptomatic v-tach overnight. Vitals obtained, stable. Resolved spontaneously back to controlled afib. Dr. Ingram notified. No further occurrences overnight.
[2023-08-26 06:47] LABS: Anion Gap 13 (12-20); Blood Urea Nitrogen 31 mg/dL (9-16); Calcium 8.7 mg/dL (8.4-10.2); Carbon Dioxide 31 mmol/L (22-29); Chloride 104 mmol/L (96-108); Creatinine Clr Calc Pharmacy 49.8; Estimated Glomerular Filt Rate > 60; Glucose Random 106 mg/dL (60-115); Potassium 4.1 mmol/L (3.3-5.1); Sodium 144 mmol/L (135-145)
[2023-08-26 06:53] LABS: B Type Natriuretic Peptide 158 pg/mL (<100)
--- NOTE | 2023-08-26 07:28 | P.CDIM_ITS ---
PROVIDER RESPONSE TEXT: To clarify, the appropriate diagnosis supported by the clinical indicators: Chronic Respiratory Failure is/was present on admission and is a clinical diagnosis QUERY TEXT: PHYSICIAN'S DOCUMENTATION REQUEST Date of Query: 08/25/2023 09:01 AM EST Patient Name: Kvng Leyva Admit Date: 08/19/2023 Dear Gracie Lipscomb, A review of the medical record indicates additional documentation may be needed. Please review below and update the documentation accordingly. Documentation on progress note dated 08/24/23 included documentation that the patient is chronically o n 3L O2 The patient's respiratory clinical indicators were the following: presented with shortness of breath Respiratory rate 28-17 Covid-19 infection with superimposed pneumonia + pleural effusion - no new/worsening O2 requirement Based on the above information and the recognized standard for respiratory failure could you please p rovide a diagnoses reflective of the patient's condition to ensure quality of the medical record. Acute on Chronic Respiratory Failure is/was present on admission and is a clinical diagnosis Chronic Respiratory Failure is/was present on admission and is a clinical diagnosis Other (explain) Clinically unable to determine (explain) Thank you, Juli Bean RN Use of terms such as suspected, likely, concern for, or probable (associated with a specific diagnosi s that is being evaluated, monitored, or treated as if it exists) are acceptable and can be coded in the inpatient se tting, when documented at the time of discharge. Please use your independent medical judgment in providing your response. THIS QUERY IS PART OF THE PERMANENT MEDICAL RECORD
[2023-08-26 07:47] VITALS: BP 127/70; PULSE 75; RESP 20; TEMP 36.6; O2SAT 98
[2023-08-26] MEDS: Fluticasone/Vilanterol 100/25 BLST.W.DEV 1 PUFF INHALE (08:16)
[2023-08-26] MEDS: Tiotropium Bromide 2.5 mcg 1 PUFF/2.5 MCG MIST.INHAL 2 PUFF INHALE (08:16)
[2023-08-26] MEDS: Albuterol/Iprat 2.5/0.5MG 3 ML AMPUL.NEB INHALE (08:16)
[2023-08-26 08:17] VITALS: PULSE 68; RESP 20; O2SAT 98
[2023-08-26] MEDS: Clopidogrel Bisulfate 75 MG TABLET PO (08:54)
[2023-08-26] MEDS: Aspirin Enteric Coated 81 MG TABLET.DR PO (08:54)
[2023-08-26] MEDS: 0.9 % Sodium Chloride Flush 3 ML SYRINGE IVFLUSH (08:54)
[2023-08-26] MEDS: Memantine HCl 5 MG TABLET PO (08:54)
[2023-08-26] MEDS: QUEtiapine Fumarate 50 MG TABLET PO (08:54)
[2023-08-26] MEDS: amLODIPine Besylate 5 MG TABLET PO (08:54)
[2023-08-26] MEDS: Furosemide 20 MG TABLET PO (08:54)
[2023-08-26 11:39] VITALS: BP 127/76; PULSE 89; RESP 20; TEMP 37.1; O2SAT 96
--- NOTE | 2023-08-26 12:03 | W.MHC.F2F ---
Service Date Service Date: 08/26/23 Encounter Date of encounter: 08/26/23 Reasons for Services Signs and symptoms assessed: Dyspnea on Exertion,Edema, Gross Deconditioning, Impaired Bed Mobility, Impaired Cognition, Impaired Gait Pattern, Impaired Joint ROM,Impaired Safety,Impaired Standing Balance, Impaired Transfer Ability, Impaired Trunk Control,Muscle Weakness,Pain CHF Reason for usp: medication management, medication treatment and teach disease management Reason for physical therapy: home safety and mobility, therapeutic exercises, gait/transfer training, assess need for DME, ADL training and energy conservation MD Overseeing Care: Yamila Rivera Homebound: Leaving the home is medically contraindicated at this time without the asist of a device and/or another person due th the listed conditions above and below. Reason homebound: shortness of breath with minimal effort and weakness related to hospital stay Certification: Based on the above findings, I certify that this patient is confined to the home and needs intermittent usp care, physical therapy and/or speech therapy, or continues to need occupational therapy. The patient is under my care, and I have initiated the establishment of the plan of care. The patient will be followed by a physician who will periodically review the plan of care. Time Spent With Patient Time: Total time managing care of this patient today ____ minutes.
--- NOTE | 2023-08-26 12:19 | P.DS_ITS ---
DS: Providers Provider Date of Service: 08/26/23 Date of admission: 08/19/23 17:38 Date of discharge: 08/26/23 Primary care physician: Yamila Rivera NP Consults: 08/20/23 10:13 Consult to Infectious Diseases Routine Consulting Provider: [facility] – [place] Infectious Disease Reason for consultation: Pneumonia , covid Has provider been notified: No 08/20/23 11:28 Consult to Wound Care Routine Reason for consultation: right trochanter pressure injury 08/20/23 17:06 Consult for Sitter Routine Reason for consultation: delirim Has provider been notified: No 08/25/23 09:54 Consult to Thoracic Surgery Routine Consulting Provider: Zane Polk Reason for consultation: Persistent apical PTX [though small] after thoracentesis 08/20 DS: Diagnosis Discharge Diagnosis (1) COVID-19: Status: Acute (2) COPD (chronic obstructive pulmonary disease): Status: Acute (3) Pneumothorax after biopsy: Status: Acute (4) Pleural effusion: Status: Acute (5) Pneumonia: Status: Acute (6) Chronic respiratory failure with hypoxia: Status: Acute (7) Acute on chronic heart failure with preserved ejection fraction (HFpEF): Status: Acute DS: Summary Hospital Course Hospital Course: From the history and physical by the admitting hospitalist, LAURA Steiner, 08/19/23: Pt is an 83-year-old male with a PMH significant for COPD on baseline 3L of home O2, HLD/CAD, unspecified dementia,? who presents to the ED for evaluation of increasing SOB and difficulty breathing after testing positive for COVID this morning. Pt with unspecified dementia at baseline, pt is a rather poor historian. Pt's is at baseline who helps supplement HPI. states she tested positive for COVID at the end of last week. Pt himself began feeling ill earlier this week with productive cough, difficulty breathing, and increasing SOB. Denies chest pain/pressure, palpitations. No fever or chills. Has not been requiring increased supplemental O2 requirements. In the ED pt and elevated temperature of 100.4 degrees, tachypneic up to 28, and satting at 100% on chronic 3 L NC. Labs were significant for testing positive for COVID, H&H 13.1/40.4, potassium 3.1, and BNP 182. Procalcitonin 0.05. CXR showed right lower lobe infiltrate/atelectasis with small right pleural effusion an ectatic thoracic aorta. Pt was treated with ceftriaxone and azithromycin. Pt will be admitted to the hospital for treatment and further evaluation of COVID with superimposed pneumonia. 83yo M with COPD on 3L O2, HLD, CAD, HTN, and dementia presenting with increasin g dyspnea abd admitted for Covid-19 with superimposed PNA with pleural effusion. Hospital course by problem: Covid-19 infection with superimposed pneumonia + pleural effusion - No new/worsening O2 requirement so did not get dexamethasone. Did not get remdesivir due to unknown duration per ID fitness sales consultant. - Thoracentesis done 08/20, culture negative. Cytology and fungal stain negative. Tiny post-procedure apical pneumothorax that persisted but was unchanged on serial CXR. Thoracic Surgery consulted and given stability, no intervention was advised. - A repeat CXR to be done in 1 week was ordered to follow up with pneumothorax as well as to check for pleural fluid reaccumulation. - In terms of antibiotics, he was treated with ceftriaxone and doxycycline for 8 days and discharged on 2 more days of both antibiotics. - BCx negative, PCT low acute HFpEF - TTE 08/20: 1. Technically limited study despite use of contrast agent 2. Normal LV ejection fraction 55-60% with impaired relaxation filling pattern 3. Limited visualization of cardiac valve with normal cardiac valvular Dopplers 4. Mildly elevated right ventricular systolic pressure - Due to concern of mild fluid overload, he was started on PO furosemide. chronic hypoxic resp failure - Maintained on 3L O2. Transfer to SNF for short-term rehabilitation was recommended but declined. As such, he was discharged home with VNA services. Time Attestation Total time managing care of this patient today: 35 mintues. Discharge coordination time: Greater than 30 minutes Quality: Safe Use of Opioids Does Pt have an Active Cancer Diagnosis on the Problem List?: No Quality: Stroke Does the patient have a stroke diagnosis?: No Physical Exam Vital Signs: Vital Signs: Last Vital Signs Temp 98.8 F 08/26/23 11:39 Pulse 89 08/26/23 11:39 Resp 20 08/26/23 11:39 BP 127/76 08/26/23 11:39 Pulse Ox 96 08/26/23 11:39 O2 Del Method Nasal Cannula 08/26/23 11:39 O2 Flow Rate 2.5 08/26/23 11:39 Oxygen Flow Rate 3 08/19/23 14:16 BMI result Body Mass Index 24.7 Gen: in no acute distress HEENT: sclera anicteric, moist mucus membranes Neck: supple Lungs: diminished R base Heart: regular rate and rhythm, no murmurs Abd: soft, non-tender, non-distended Ext: no edema Skin: warm/well-perfused Neuro: alert and oriented x3, no focal findings Psych: appropriate affect DS: Data Data Completed and Pending Completed studies during hospitalization [Text1]: Laboratory Results WBC 9.8 X10*3/uL (4.8-10.8) 08/24/23 06:27 RBC 3.98 X10*6/uL (4.60-5.80) L 08/24/23 06:27 Hgb 12.5 g/dl (14.0-18.0) L 08/24/23 06:27 Hct 39.0 % (42.0-52.0) L 08/24/23 06:27 MCV 98.0 fL (80.0-98.0) 08/24/23 06:27 MCH 31.4 pg (27.0-33.0) 08/24/23 06:27 MCHC 32.1 g/dl (31.0-36.0) 08/24/23 06:27 RDW 12.3 % (11.0-16.0) 08/24/23 06:27 Plt Count 153 X10*3/uL (160-400) L 08/24/23 06:27 MPV 10.9 fL (9.4-12.4) 08/24/23 06:27 Immature Gran % (Auto) 0.4 % (0.0-0.4) 08/19/23 13:51 Neut % (Auto) 73.3 % (45-73) H 08/19/23 13:51 Lymph % (Auto) 10.6 % (20-40) L 08/19/23 13:51 Gulf % (Auto) 14.7 % (2-11) H 08/19/23 13:51 Eos % (Auto) 0.5 % (0-4) 08/19/23 13:51 Baso % (Auto) 0.5 % (0-2) 08/19/23 13:51 Lymph # (Auto) 0.8 X10*3/uL (1.2-4.9) L 08/19/23 13:51 Gulf # (Auto) 1.1 X10*3/uL (0.1-1.2) 08/19/23 13:51 Eos # (Auto) 0.0 X10*3/uL (0.0-0.4) 08/19/23 13:51 Baso # (Auto) 0.0 X10*3/uL (0.0-0.2) 08/19/23 13:51 Abs Immat Gran (auto) 0.03 X10*3/uL (0.00-0.03) 08/19/23 13:51 Absolute Neuts (auto) 5.4 x10*3/uL (2.0-8.3) 08/19/23 13:51 Absolute Nucleated RBC 0.000 X10*3/uL (0.0-0.012) 08/24/23 06:27 Nucleated RBC % (auto) 0.0 /100WBC (0.0-0.2) 08/24/23 06:27 Hold Purple Top SEE NOTE 08/22/23 09:07 Sodium 144 mmol/L (135-145) 08/26/23 05:55 Potassium 4.1 mmol/L (3.3-5.1) D 08/26/23 05:55 Chloride 104 mmol/L (96-108) 08/26/23 05:55 Carbon Dioxide 31 mmol/L (22-29) H 08/26/23 05:55 Anion Gap 13 (12-20) 08/26/23 05:55 BUN 31 mg/dL (9-16) H 08/26/23 05:55 Creatinine 1.16 mg/dL (0.5-1.4) 08/26/23 05:55 Estim Creat Clear Calc 49.8 08/26/23 05:55 Estimated GFR > 60 08/26/23 05:55 POC Glucose 100 mg/dL (60-115) 08/21/23 21:38 Random Glucose 106 mg/dL (60-115) 08/26/23 05:55 Calcium 8.7 mg/dL (8.4-10.2) D 08/26/23 05:55 Magnesium 1.7 mg/dL (1.6-2.6) 08/25/23 06:21 Lactate Dehydrogenase 194 U/L (118-273) 08/24/23 06:27 B-Natriuretic Peptide 158 pg/mL (<100) H 08/26/23 05:55 Total Protein 5.6 g/dL (6.5-8.0) L 08/24/23 06:27 Procalcitonin 0.05 ng/mL 08/24/23 06:27 Pleural pH 7.54 08/20/23 10:40 Pleural WBC 0.461 X10*3/uL 08/20/23 10:40 Pleural RBC < 0.002 X10*6/uL 08/20/23 10:40 Pleural Neutrophils 2 % 08/20/23 10:40 Pleural Lymphocytes 57 % 08/20/23 10:40 Pleural Monocytes 6 % 08/20/23 10:40 Pleural Eosinophils 21 % 08/20/23 10:40 Pleural Other Cells 14 % 08/20/23 10:40 Pleural Total Protein 3.0 GM/DL 08/20/23 10:40 Pleural Albumin 1.9 GM/DL 08/20/23 10:40 Pleural LDH 145 U/L 08/20/23 10:40 Pleural Glucose 103 MG/DL 08/20/23 10:40 Influenza Type A (PCR) NEGATIVE (Negative) 08/19/23 13:48 Influenza Type B (PCR) NEGATIVE (Negative) 08/19/23 13:48 RSV RNA Qual (PCR) NEGATIVE (Negative) 08/19/23 13:48 SARS-CoV-2 RNA (RT-PCR) POSITIVE (Negative) A 08/19/23 13:48 TB Test (T-Spot) Com Negative (Negative) 08/20/23 14:48 TB Test Nil Control Passed 08/20/23 14:48 TB Test Panel A 0 08/20/23 14:48 TB Test Panel B 0 08/20/23 14:48 TB Test Positive Cntrl Passed 08/20/23 14:[address] 08/19/23 17:42 IMPRESSION: Large right pleural effusion and atelectasis/consolidation of the right lower lobe and part of the lateral segment of the right middle lobe. Small left pleural effusion. Fleischner guidelines were followed. Cervical Spine CT 08/22/23 06:45 IMPRESSION: CT HEAD: 1. No acute intracranial finding. 2. Chronic sinus disease. CT CERVICAL SPINE: 1. No cervical spine fracture or traumatic malalignment identified. 2. Multilevel degenerative changes. 3. Layering right-sided pleural effusion. Head CT 08/22/23 06:45 IMPRESSION: CT HEAD: 1. No acute intracranial finding. 2. Chronic sinus disease. CT CERVICAL SPINE: 1. No cervical spine fracture or traumatic malalignment identified. 2. Multilevel degenerative changes. 3. Layering right-sided pleural effusion. Lumbar Spine X-Ray 08/22/23 06:45 IMPRESSION: No acute fractures seen. Grade 1 anterolisthesis of L5 over S1 and facets arthropathy at the level of L5-S1. Chronic wedge-shaped deformity of L1 Knee X-Ray 08/22/23 10:15 IMPRESSION: No fracture or dislocation. 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 Chest X-Ray 08/26/23 08:27 IMPRESSION: New opacification at the right apex possible fluid. Discharge Plan Discharge Anticipated Discharge Date/Time: 08/26/23 11:55 Patient Disposition: Home Health Service Discharge Diagnosis: Pneumonia with pleural effusion Covid-19 infection CHF exacerbation Chronic hypoxia Referrals: [facility] – [place] Pulmonology Services [Provider Group] - 1 Week [facility] [Outside] - 1 Week Yamila Rivera NP [Primary Care Provider] - 1 Week Discharge Medications: New doxycycline monohydrate 100 mg Capsule 100 mg PO Q12H Qty: 4 0RF furosemide 20 mg Tablet 20 mg PO DAILY Qty: 30 0RF Protocol: Hold for SBP< HOLD for SBP < : 90 cefdinir 300 mg capsule 300 mg PO BID Qty: 4 0RF Continued fluticasone furoate-vilanterol [Breo Ellipta] 100-25 mcg/dose blister with device 1 inh inhalation RDAILY 30 Days Qty: 60 5RF atorvastatin 10 mg Tablet 10 mg PO BEDTIME 30 Days Qty: 30 0RF quetiapine 100 mg Tablet 100 mg PO BEDTIME 30 Days Qty: 30 0RF memantine 5 mg Tablet 5 mg PO BID 30 Days Qty: 60 0RF quetiapine 50 mg Tablet 50 mg PO DAILY 30 Days Qty: 30 0RF melatonin 3 mg Tablet 6 mg PO BEDTIME PRN (Reason: Insomnia) Qty: 60 0RF lisinopril 20 mg tablet 20 mg PO DAILY 30 Days Qty: 30 0RF clopidogrel 75 mg tablet 75 mg PO DAILY 30 Days Qty: 30 0RF aspirin 81 mg tablet,delayed release (DR/EC) 81 mg PO DAILY 30 Days Qty: 30 0RF albuterol sulfate [ProAir HFA] 90 mcg/actuation HFA aerosol inhaler 2 puff inhalation Q6H PRN (Reason: shortness of breath or wheezing) 30 Days Qty: 1 0RF Spiriva Respimat 2.5 mcg/actuation mist 2 puff inhalation DAILY Qty: 4 0RF ipratropium-albuterol 0.5 mg-3 mg(2.5 mg base)/3 mL solution for nebulization 3 ml inhalation Q4-6H PRN (Reason: wheezing) ipratropium-albuterol 0.5 mg-3 mg(2.5 mg base)/3 mL solution for nebulization 3 ml inhalation BID Rx Instructions: Use TID trazodone 50 mg tablet 50 mg PO BEDTIME PRN (Reason: Insomnia) Discharge Orders: Discharge Order (Routine); Ordered 08/26/23 Ordered By: Gracie Lipscomb Diet: Advance to usual diet Activity on Discharge: As tolerated Stand Alone Forms: Patient Portal Discharge page Other Ambulatory Orders: XR chest 2V (Routine) Timeframe: 1 Week Facility: [facility] - Location: Radiology Ordered By: Gracie Lipscomb Care Plan Goals: Recovery from infection Health Concerns: Pneumonia with pleural effusion Covid-19 infection CHF exacerbation Chronic hypoxia Plan of Treatment: Doxycycline 100 mg twice daily PLUS cefdinir 300 mg twice daily for 2 more days Oxygen 3L as per home regimen Furosemide 20 mg daily Low-sodium diet: less than 2000 mg of sodium daily. Weigh yourself daily and call your doctor if your weight goes up by more than 3 lb/day or 5 lb/week. Follow up with [facility] – [place] Pulmonology in 1-2 weeks. Obtain repeat chest X-ray in 1 week. Please follow up with your primary care doctor within 1 week. Return to the hospital if you experience recurrent or worsening symptoms. Assessment: See Discharge Summary. Discharge Date/Time: 08/26/23 13:54
--- NOTE | 2023-08-26 12:53 | MHC.CM.PN ---
Second IMM, pt has been medically cleared for DC, he will go home via family transport, and have home health services from [facility].
[2023-08-30 07:23] LABS: Adenosine Deaminase Pleural Fl 4
== END 2023-08-26 13:54 | disposition home health service (06) | DRG 177 ==
LOC: HO.ED 15:20 → HO.EDOVER 17:53 → HO.IMC 08-20 07:40
PROVIDERS: Internal Medicine; Admitting Provider Student in an Organized Health Care Education/Training Program; Emergency Provider Emergency Medicine; PCP Nurse Practitioner Family; Visit Provider Family Medicine
DX: U07.1 COVID-19 (principal); I50.31 Acute diastolic (congestive) heart failure; J18.9 Pneumonia, unspecified organism; J44.0 Chronic obstructive pulmonary disease with (acute) lower respiratory infection; J91.8 Pleural effusion in other conditions classified elsewhere; J96.11 Chronic respiratory failure with hypoxia; J98.11 Atelectasis; F03.90 Unspecified dementia, unspecified severity, without behavioral disturbance, psychotic disturbance, mood disturbance, and anxiety; Z66 Do not resuscitate; E87.6 Hypokalemia; I25.10 Atherosclerotic heart disease of native coronary artery without angina pectoris; E78.5 Hyperlipidemia, unspecified; Z87.891 Personal history of nicotine dependence; Z79.02 Long term (current) use of antithrombotics/antiplatelets; Z79.51 Long term (current) use of inhaled steroids; Z79.82 Long term (current) use of aspirin; Z79.899 Other long term (current) drug therapy
CPT/HCPCS: 0241U; 32555; 36415; 70450; 71045; 71250; 72100; 72125; 73562; 80048; 82042; 82945; 82947; 83615; 83735; 83880; 83986; 84132; 84145; 84155; 84157; 84311; 85025; 85027; 86481; 87040; 87070; 87073; 87205; 88112; 88305; 88312; 89051; 93306; 94640; 97116; 97162; 97530; 99285; J0456; J0696; J1650; J1940; J2359; J2405; Q9957

== ENCOUNTER 2023-08-19 17:38 | Outpatient (BNV) | payer MEDICARE, SELFPAY | END 2023-08-20 10:00 | PROVIDERS: Admitting Provider Student in an Organized Health Care Education/Training Program; Emergency Provider Emergency Medicine; PCP Nurse Practitioner Family; Visit Provider Physician Assistant Surgical | DX: J90 Pleural effusion, not elsewhere classified (principal) | CPT/HCPCS: 32555 ==

== ENCOUNTER 2023-08-19 17:38 | Outpatient (BNV) | payer MEDICARE, SELFPAY | END 2023-08-20 07:00 | PROVIDERS: Admitting Provider Student in an Organized Health Care Education/Training Program; Emergency Provider Emergency Medicine; PCP Nurse Practitioner Family; Visit Provider Internal Medicine Cardiovascular Disease | DX: R94.31 Abnormal electrocardiogram [ECG] [EKG] (principal); J18.9 Pneumonia, unspecified organism | CPT/HCPCS: 93306 ==

== ENCOUNTER → 2023-08-19 17:38 | Outpatient (BNV) | payer MEDICARE, SELFPAY | PROVIDERS: Admitting Provider Student in an Organized Health Care Education/Training Program; Emergency Provider Emergency Medicine; PCP Nurse Practitioner Family; Visit Provider Student in an Organized Health Care Education/Training Program | DX: U07.1 COVID-19 (principal); J96.11 Chronic respiratory failure with hypoxia; J44.9 Chronic obstructive pulmonary disease, unspecified; I50.33 Acute on chronic diastolic (congestive) heart failure; J95.811 Postprocedural pneumothorax; J90 Pleural effusion, not elsewhere classified; J18.9 Pneumonia, unspecified organism | CPT/HCPCS: 99223; 99232; 99239; 99499; G0180 ==

== ENCOUNTER → 2023-08-19 17:38 | Outpatient (BNV) | payer MEDICARE, SELFPAY | PROVIDERS: Admitting Provider Student in an Organized Health Care Education/Training Program; Emergency Provider Emergency Medicine; PCP Nurse Practitioner Family; Visit Provider Physician Assistant Surgical | DX: U07.1 COVID-19 (principal); J44.9 Chronic obstructive pulmonary disease, unspecified | CPT/HCPCS: 99222 ==

== ENCOUNTER → 2023-08-19 17:38 | Outpatient (BNV) | payer MEDICARE, SELFPAY | PROVIDERS: Admitting Provider Student in an Organized Health Care Education/Training Program; Emergency Provider Emergency Medicine; PCP Nurse Practitioner Family; Visit Provider Internal Medicine | DX: U07.1 COVID-19 (principal); J18.9 Pneumonia, unspecified organism; R09.02 Hypoxemia | CPT/HCPCS: 99222 ==

== ENCOUNTER 2023-08-30 15:01 | Outpatient (AMB) | payer MEDICARE, SELFPAY ==
--- NOTE | 2023-08-30 15:04 | MHC.OFFVIS ---
Intake Vital Signs 08/30/23 15:09 Pulse 83 Pulse Source Pulse Oximeter Temp 99.0 F Temp Source Oral Pulse Oximetry (%) 97 Intake Visit Reasons: reff list covid pneumonia Allergies No Known Allergies Allergy (Mild, Verified 08/30/23 15:10) NONE cats dogs ragweed dust pollen Allergy (Unknown, Uncoded 08/19/23 14:17) Unknown HPI reff list covid pneumonia HPI Details He has no shortness of breath. He feels better at this time. PFS Medical History Pneumothorax after biopsy Hypoxemia COPD (chronic obstructive pulmonary disease) Pulmonary emphysema Osteopenia Hyperparathyroidism Osteoporosis Vitamin D deficiency Multinodular thyroid Surgical History Hx of prostatectomy Hx of hernia repair Family History Father No problems noted. Mother No problems noted. Social History Household Members: Family Household Members Other:: 2 Housing: House Do you presently have visiting nurse or other home services: Yes Alcohol intake: never Comment: sitter Patient Tobacco Use Status: Former Tobacco user Quit Date: 35 years Tobacco use type: Cigarette Advance Directives Date on File: 02/28/23 service: No Sexual orientation: Straight/Heterosexual Review of Systems Const All systems reviewed & are unremarkable except as noted in HPI and below Physical Exam Vital Signs: Last Vital Signs Temp 99.0 F 08/30/23 15:09 Pulse 83 08/30/23 15:09 Pulse Ox 97 08/30/23 15:09 Const General: cooperative Orientation/consciousness: patient oriented x3 HEENT Head: Yes normal to inspection Mouth: Normal oral and palatal mucosa present Eyes General: appearance normal, both eyes and all related structures Pupils: Equal, round and reactive pupils present Resp Effort & Inspection: normal respiratory effort Cardio Rate: regular rate Rhythm: regular rhythm GI Palpation (GI): Soft to palpation and nontender General: Yes no CVA tenderness Back/Spine/Pelvis Back: no CVA tenderness Skin General skin exam: no rashes or lesions noted Neuro General: patient oriented x3 Cranial nerves: Yes CN's II-XII intact bilaterally and Yes Equal, round and reactive pupils present Extrem General: Yes normal to inspection Psych Appearance: grossly normal Assessment & Plan Assessment & Plan (1) Chronic respiratory failure with hypoxia: Comment: He has some improvement in shortness of breath. Code(s): J96.11 - Chronic respiratory failure with hypoxia Plan: Would continue followup if needed. See prn need. (2) Pleural effusion: Code(s): J90 - Pleural effusion, not elsewhere classified Plan: na Coding Level of Care Code Est Pt Level 3 (59347) Diagnoses Chronic respiratory failure with hypoxia J96.11 Pleural effusion J90
[2023-08-30 15:09] VITALS: PULSE 83; TEMP 37.2; O2SAT 97
== END 2023-08-30 15:27 | disposition home or self-care (01) ==
PROVIDERS: PCP Nurse Practitioner Family; Visit Provider Internal Medicine
DX: J96.11 Chronic respiratory failure with hypoxia (principal); J90 Pleural effusion, not elsewhere classified
CPT/HCPCS: 99213

== ENCOUNTER 2023-08-30 15:03 | Outpatient (REF) | payer MEDICARE, SELFPAY ==
--- NOTE | ~2023-08-30 | XR_ITS ---
EXAMINATION: XR CHEST CLINICAL INFORMATION: Follow-up pneumonia, pleural effusion and pneumothorax, trouble breathing. COMPARISON: 08/26/2023 TECHNIQUE: 3 views of the chest were obtained. FINDINGS: There is no pneumothorax. Stable cardiomediastinal silhouette. Increased small right pleural effusion. Right mid and lower lung opacities and volume loss persist in the right hemithorax. Trace left pleural effusion unchanged. XR/XR chest 2V IMPRESSION: Increased small right pleural effusion. Right mid and lower lung opacities and volume loss persist in the right hemithorax. Trace left pleural effusion unchanged.
== END 2023-08-30 15:04 | disposition home or self-care (01) ==
LOC: HO.XRAY 15:03
PROVIDERS: Visit Provider Family Medicine
DX: J18.9 Pneumonia, unspecified organism (principal); J95.811 Postprocedural pneumothorax
CPT/HCPCS: 71046; 99212

== ENCOUNTER 2023-10-04 13:28 | Outpatient (AMB) | payer MEDICARE, SELFPAY ==
--- NOTE | 2023-10-04 13:42 | MHC.OFFVIS ---
Intake Vital Signs 10/04/23 13:43 Height 5 ft 10 in Weight 165 lb BMI 23.7 BP 130/78 Blood Pressure Location Lt brachial Position Sitting Pulse 50 Pulse Source Pulse Oximeter Pulse Oximetry (%) 97 Oxygen Delivery Method Nasal Cannula Oxygen Flow Rate 3 Intake Visit Reasons: Emphysema Intake Note: pt is here for follow up and states he was in HH, with pneumonia and covid, pcp is ordered chest xray that will be done after this appt. no wheeze and feeling good. 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 Allergies No Known Allergies Allergy (Mild, Verified 10/04/23 14:16) NONE cats dogs ragweed dust pollen Allergy (Unknown, Uncoded 10/04/23 14:16) Unknown Medication List - Last Reconciled 10/04/23 by Cedric Sarabia MD albuterol sulfate 90 mcg/actuation (ProAir HFA) 2 puffs inhalation Q6H PRN 30 days aspirin 81 mg PO DAILY 30 days atorvastatin 10 mg PO BEDTIME 30 days cefdinir 300 mg PO BID clopidogrel 75 mg PO DAILY 30 days doxycycline monohydrate 100 mg PO Q12H fluticasone furoate-vilanterol 100-25 mcg/dose (Breo Ellipta) 1 inh inhalation RDAILY 30 days furosemide 20 mg See Protocol PO DAILY ipratropium-albuterol 0.5 mg-3 mg(2.5 mg base)/3 mL 3 mL inhalation Q4-6H PRN lisinopril 20 mg PO DAILY 30 days melatonin 6 mg (2 x 3 mg) PO BEDTIME PRN memantine 5 mg PO BID 30 days quetiapine 100 mg PO BEDTIME 30 days quetiapine 50 mg PO DAILY 30 days tiotropium bromide 2.5 mcg/actuation (Spiriva Respimat) 2 puffs inhalation DAILY trazodone 50 mg PO BEDTIME PRN Do you need a note to return to daycare/school/sports/work: No HPI Emphysema HPI Details This 83 years old gentleman is here for his routine 4 months follow-up. In the interim period He was admitted to [facility] for about 1 week during last week of July, . He contracted COVID infection from his who had before him. He had to be hospitalized because he was found to have right pleural effusion and also pneumonia in the right lung. He had a thoracentesis and the fluid testing was basically normal. Post thoracenteses small pneumothorax on the right side resolved by itself. He was discharged home on the same meds as before. Has been using his O2 , at 2 L/minute at rest and 3 L/minute when moving around. He claims to be feeling okay, Has hard time to go out with the portable cylinders and he is requesting to have an order for POC. [facility] [place] Medical History Pneumothorax after biopsy Hypoxemia COPD (chronic obstructive pulmonary disease) Pulmonary emphysema Osteopenia Hyperparathyroidism Osteoporosis Vitamin D deficiency Multinodular thyroid Surgical History Hx of prostatectomy Hx of hernia repair Family History Father No problems noted. Mother No problems noted. Social History Household Members: Family Household Members Other:: 2 Housing: House Do you presently have visiting nurse or other home services: Yes Alcohol intake: never Comment: sitter Patient Tobacco Use Status: Former Tobacco user Quit Date: 35 years Tobacco use type: Cigarette Advance Directives Date on File: 02/28/23 service: No Sexual orientation: Straight/Heterosexual Review of Systems Const All systems reviewed & are unremarkable except as noted in HPI and below Reports weakness (MINIMAL RESIDUAL WEAKNESS OF THE LEFT UPPER EXTREMITY) Eyes Reports no additional complaints ENT Reports no additional complaints Card Denies chest pain, Denies irregular heart rhythm, Denies leg edema and Reports dyspnea on exertion (MILD) Resp Reports as per HPI and Reports dyspnea on exertion (MILD) GI Reports no additional complaints Reports no additional complaints Musc Reports abnormal gait (HE USES WALKER,) and Reports back pain Skin/Breast Reports rash (HE HAS HAD NONSPECIFIC ERYTHEMATOUS RASH ON HIS BACK ) Neuro Reports abnormal gait (HE USES WALKER,) and Reports weakness (MINIMAL RESIDUAL WEAKNESS OF THE LEFT UPPER EXTREMITY) Psych Reports anxiety (MILD, HAS TO USE ALPRAZOLAM ONCE IN A WHILE) Endo Reports no additional complaints Isidoro/Lymph Reports no additional complaints Aller/Immun Reports no additional complaints Physical Exam Vital Signs: Last Vital Signs Pulse 50 10/04/23 13:43 BP 130/78 10/04/23 13:43 Pulse Ox 97 10/04/23 13:43 Oxygen Delivery Method Nasal Cannula 10/04/23 13:43 Oxygen Flow Rate 3 10/04/23 13:43 BMI result Body Mass Index 23.7 Const General: comfortable, no acute distress, alert and awake Orientation/consciousness: patient oriented x3 HEENT Head: Yes normal to inspection General nose exam: No nasal polyps present and No nasal discharge present Face and sinus: Yes sinuses nontender Mouth: oropharynx normal Throat: Yes posterior oropharynx normal Eyes General: appearance normal, both eyes and all related structures Neck Neck: Yes normal visual inspection, Yes no lymphadenopathy, Yes trachea midline and Yes no JVD Thyroid: Thyroid normal Chest Chest palpation & inspection: normal inspection of the chest, normal palpation of entire chest wall and no tenderness Resp Other: PERCUSSION NOTE IS HYPER-RESONANT, BREATH SOUNDS ARE DISTANT WITH PROLONGED EXPIRATORY PHASE BUT EQUAL ON BOTH SIDES. NO AUDIBLE WHEEZES OR CREPITATIONS. Cardio Palpation: normal PMI Rate: regular rate Rhythm: regular rhythm Heart sounds: no gallops and no murmurs GI Palpation (GI): Soft to palpation, nontender, No hepatosplenomegaly present and no masses Auscultation: normal bowel sounds Back/Spine/Pelvis Thoracic/Lumbar Spine: thoracic and lumbar spine normal to inspection and thoraco-lumbar ROM limited Skin General skin exam: no rashes or lesions noted and other (HE HAS MULTIPLE ERYTHEMATOUS DISC I ADDED AREAS ON THE WHOLE BACK) Neuro General: patient oriented x3, No gait normal (GAIT IMPAIRED DUE TO BACK PAIN, AND HE USES WALKER) and no focal motor deficits Cranial nerves: Yes CN's II-XII intact bilaterally Extrem General: Yes normal to inspection, Yes no clubbing, cyanosis or edema and Yes no calf tenderness Psych Appearance: grossly normal and well kempt Speech and movement: Normal speech and movement present Results Reviewed Results Reviewed: I reviewed the records related to her hospitalization in last week of July. Assessment & Plan Assessment & Plan (1) COPD (chronic obstructive pulmonary disease): Comment: He does have rather severe degree of obstructive airway disorder. Was treated for an acute exacerbation in February 2023 and in 2023 . Now he is relatively stable. Code(s): J44.9 - Chronic obstructive pulmonary disease, unspecified Plan: Continue the regular meds which are as follows : Spiriva Respimat 2 inhalations daily Ipratropium-albuterol inhalation solution 3 male in nebulizer Q 6 hours p.r.n. , use at least twice a day. Albuterol HFA 2 puffs Q 4-6 hours p.r.n. when outdoors Breo 100-251 inhalation daily (2) Chronic respiratory failure with hypoxia: Comment: Patient has chronic hypoxemia. Being treated with O2 2 L/minute when at rest and 3 L/minute with any physical activity. He is asking if he can get a POC unit for convenient portability. Code(s): J96.11 - Chronic respiratory failure with hypoxia Plan: 6 minutes walk to test to check for his the qualification for POC. UNFORTUNATELY HE DOES NOT QUALIFY BECAUSE HE DESATURATES VERY QUICKLY WITH O2 CONSERVING MODE , Coding Level of Care Code Est Pt Level 4 (30737) Diagnoses COPD (chronic obstructive pulmonary disease) J44.9 Chronic respiratory failure with hypoxia J96.11
[2023-10-04 13:43] VITALS: BP 130/78; PULSE 50; O2SAT 97; BMI 23.7
[2023-10-04 14:35] VITALS: PULSE 75; O2SAT 96
== END 2023-10-04 14:44 | disposition home or self-care (01) ==
PROVIDERS: PCP Nurse Practitioner Family; Visit Provider Internal Medicine
DX: J44.9 Chronic obstructive pulmonary disease, unspecified (principal); J96.11 Chronic respiratory failure with hypoxia
CPT/HCPCS: 94618; 99214

== ENCOUNTER 2023-10-04 13:28 | Outpatient (REF) | payer MEDICARE, SELFPAY ==
--- NOTE | ~2023-10-04 | XR_ITS ---
EXAMINATION: XR CHEST CLINICAL INFORMATION: Pleural effusion COMPARISON: 08/30/2023 TECHNIQUE: 2 views of the chest were obtained. FINDINGS: There is no significant interval change in appearance of well expanded lungs with blunting of right costophrenic angle secondary to small pleural effusion. Cardiomediastinal silhouette revealed tortuosity of aorta but no cardiomegaly. There are linear atelectasis in the right middle lobe and right lower lobe. Osseous structures are unremarkable. XR/XR chest 2V IMPRESSION: Small, stable pleural effusion on the right and linear atelectasis.
[2023-10-04 14:56] LABS: MANUAL DIFF FLAG NO
[2023-10-04 15:39] LABS: Basophils Absolute Auto 0.1 X10*3/uL (0.0-0.2); Eosinophils Absolute Auto 0.2 X10*3/uL (0.0-0.4); Eosinophils Percent Auto 1.8 % (0-4); Hematocrit 41.1 % (42.0-52.0); Hemoglobin 13.3 g/dl (14.0-18.0); Imm Gran Abs Auto 0.07 X10*3/uL (0.00-0.03); Imm Gran Pct Auto 0.8 % (0.0-0.4); Lymphocytes Absolute Auto 1.3 X10*3/uL (1.2-4.9); Lymphocytes Percent Auto 14.3 % (20-40); Mean Corpuscular HGB Conc 32.4 g/dl (31.0-36.0); Mean Corpuscular Volume 98.8 fL (80.0-98.0); Monocytes Absolute Auto 0.8 X10*3/uL (0.1-1.2); Monocytes Percent Auto 9.1 % (2-11); Neutrophils Absolute Auto 6.7 x10*3/uL (2.0-8.3); Platelet Count 218 X10*3/uL (160-400); Red Blood Count 4.16 X10*6/uL (4.60-5.80); Red Cell Distribution Width 12.9 % (11.0-16.0); White Blood Count 9.2 X10*3/uL (4.8-10.8)
[2023-10-04 16:05] LABS: Anion Gap 10 (12-20); Blood Urea Nitrogen 18 mg/dL (9-16); Calcium 9.4 mg/dL (8.4-10.2); Carbon Dioxide 31 mmol/L (22-29); Chloride 107 mmol/L (96-108); Estimated Glomerular Filt Rate > 60; Glucose Random 96 mg/dL (60-115); Potassium 4.9 mmol/L (3.3-5.1); Sodium 143 mmol/L (135-145)
[2023-10-04 16:35] LABS: Vitamin B12 350 pg/mL (200-900)
== END 2023-10-04 13:29 | disposition home or self-care (01) ==
LOC: HO.LAB 13:28
PROVIDERS: Nurse Practitioner Adult Health; PCP Nurse Practitioner Family; Visit Provider Internal Medicine
DX: J90 Pleural effusion, not elsewhere classified (principal); U07.1 COVID-19; J12.82 Pneumonia due to coronavirus disease 2019; D64.9 Anemia, unspecified; G30.9 Alzheimer's disease, unspecified; E53.8 Deficiency of other specified B group vitamins
CPT/HCPCS: 36415; 71046; 80048; 82607; 85025; 94618; 99212

== ENCOUNTER 2023-12-17 15:51 | Outpatient (AMB) | payer MEDICARE, SELFPAY ==
[2023-12-17 15:58] VITALS: BP 160/78; PULSE 73; O2SAT 97; BMI 23.4
--- NOTE | 2023-12-17 15:58 | MHC.PC.OV ---
Vital Signs 12/17/23 15:58 Height 5 ft 10 in Weight 162 lb 14.746 oz BMI 23.4 BP 160/78 H Blood Pressure Location Lt brachial Position Sitting Pulse 73 Pulse Source Pulse Oximeter Pulse Oximetry (%) 97 Oxygen Delivery Method Nasal Cannula Oxygen Flow Rate 3 Intake Visit Reasons: Core Analyst Chronic Care F/U Dementia Intake Note: Patient is a new patient here to establish care. Transferring care from Yamila Rivera NP Superintendent Service Required: No Allergies No Known Allergies Allergy (Mild, Verified 12/17/23 16:54) NONE cats dogs ragweed dust pollen Allergy (Unknown, Uncoded 12/17/23 16:54) Unknown Medication List - Last Reconciled 12/17/23 by Alex Harvey MD albuterol sulfate 90 mcg/actuation (ProAir HFA) 2 puffs inhalation Q6H PRN 30 days atorvastatin 10 mg PO BEDTIME 30 days clopidogrel 75 mg PO DAILY 30 days fluticasone furoate-vilanterol 100-25 mcg/dose (Breo Ellipta) 1 ea inhalation DAILY ipratropium-albuterol 0.5 mg-3 mg(2.5 mg base)/3 mL 3 mL inhalation Q4-6H PRN lisinopril 20 mg PO DAILY 30 days melatonin 6 mg (2 x 3 mg) PO BEDTIME PRN memantine 5 mg PO BID 30 days quetiapine 100 mg PO BEDTIME 30 days quetiapine 50 mg PO DAILY 30 days tiotropium bromide 2.5 mcg/actuation (Spiriva Respimat) 2 puffs inhalation DAILY trazodone 50 mg PO BEDTIME PRN Tobacco use date assessed: 12/17/23 Fall risk assessment: No Falls in past year Last assessed Fall Risk: 12/17/23 Dental Screening Dental Screen Date: 12/17/23 Did you have a dental visit in the last 12 months?: Yes Did you have a dental problem in the last 6 months where you did not have access to dental care?: No Was dental information given to patient?: Patient has dentist HPI Core Analyst Chronic Care F/U Dementia HPI Details Patient comes in today to establish care - is a new patient to the practice and is transferring over from his previous PCP His previous PCP was Yamila Rivera NP, who patient states is leaving her current practice to become a psychiatric nurse / prescriber Patient states that he has been seeing and will continue to follow up with his own psychiatrist, Dr. John Pandey, in [place] for management of his own psychiatric issues and that Dr. Pandey is the one prescribing and managing his Trazodone, Quetiapine and Melatonin Rx Patient states that he feels okay and mainly needs his Rx for Lisinopril and Atorvastatin refilled He is currently on oxygen inhalation at 3 LPM for COPD and states that he keeps his oxygen on 18/01 He has been following up with Dr. Sarabia (pulmonary medicine) for his COPD for years He denies any headaches or dizziness Denies any chest pains, no SOB at this time although he gets winded very easily even with minimal exertion - has prominent BUSTAMANTE No nausea/vomiting, no abdominal pain No change in bowel habits noted PENDING SALE TO [facility] Medical History (Updated 12/18/23 @ 05:08 by Alex Harvey MD) Insomnia Pure hypercholesterolemia Essential hypertension Pneumothorax after biopsy Hypoxemia COPD (chronic obstructive pulmonary disease) Pulmonary emphysema Osteopenia Hyperparathyroidism Osteoporosis Vitamin D deficiency Multinodular thyroid Surgical History Hx of prostatectomy Hx of hernia repair Family History Father No problems noted. Mother No problems noted. 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 1. Little interest or pleasure in doing things: not at all 2. Feeling down, depressed, or hopeless: not at all 3. Trouble falling or staying asleep, or sleeping too much: not at all 4. Feeling tired or having little energy: not at all 5. Poor appetite or overeating: not at all 6. Feeling bad about yourself - or that you are a failure or have let yourself or your family down: not at all 7. Trouble concentrating on things, such as reading the newspaper or watching television: not at all 8. Moving or speaking so slowly that other people could have noticed. Or the opposite - being so fidgety or restless that you have been moving around a lot more than usual: not at all 9. Thoughts that you would be better off or of hurting yourself in some way: not at all Total score: 0 Depression Screening Interpretation: Negative Depression Screening Done: Yes 56171 - PHQ-9 Billing: Yes Source: Developed by Drs. Hari Fraser, Cally Jeter, Pascual Hawthorne and colleagues, with an educational lynda from [email or web address]. Thrive Questionnaire Date Thrive assessed: 12/17/23 I am a: Patient What is your living situation today?: I have a steady place to live Within the past 12 months, did the food you bought not last and you didn't have the money to get more?: Never true Within the past 12 months, did you worry whether your food would run out before you got money to buy more?: Never true Do you have trouble paying for medicines?: No Do you have trouble getting transportation to medical appointments?: No Do you have trouble paying your heating and electricity bill?: No Do you have trouble taking care of your child, family member or friend?: No Do you have trouble with day-to-day activities such as bathing, preparing meals, shopping, managing finances, etc.?: No Are you currently unemployed and looking for a job?: No Are you interested in more education?: No Please select the resources that you would like help with: None Currently or been in a relationship where the following occur: no concerns reported THRIVE Score: 0 AUDIT C Alcohol Use Questionnaire (AUDIT-C) 1. How often do you have a drink containing alcohol?: Never 2. How many drinks containing alcohol do you have on a typical day when you are drinking?: 1 or 2 (0) 3. How often do you have six or more drinks on one occasion?: Never Total Score: 0 Score Reviewed/Action Taken: Yes RAMONA-7 AMB Questionnaire RAMONA-7 Date RAMONA - 7 assessed: 12/17/23 Feeling nervous, anxious, or on edge: 0 = Not at all Not being able to stop or control worryin = Not at all Worrying too much about different things: 0 = Not at all Trouble relaxin = Not at all Being so restless that it is hard to sit still: 0 = Not at all Becoming easily annoyed or irritable: 0 = Not at all Feeling afraid as if something awful might happen: 0 = Not at all Total RAMONA-7 score (0-4 normal; 5-9 mild; 10-14 moderate; 15-21 severe): 0 Source: Developed by Drs. Hari Fraser, Cally Jeter, Pascual Hawthorne and colleagues, with an educational lynda from [email or web address]. RAMONA-7 Assessment Billing RAMONA-7 Assessment Tool: RAMONA-7 Assessment 94249 Review of Systems Const Denies chills, Reports fatigue, Denies fever(s) and Denies headache(s) ENT Denies dysphagia, Denies dizziness, Denies otalgia, Denies headache(s), Denies odynophagia and Denies sore throat Card Denies chest pain, Denies lightheadedness, Denies palpitations and Reports dyspnea on exertion Resp Denies cough, Reports dyspnea on exertion and Denies wheezing GI Denies abdominal pain, Denies constipation, Denies dysphagia, Denies heartburn, Denies diarrhea, Denies nausea, Denies odynophagia and Denies vomiting Denies dysuria, Denies nocturia and Denies urinary frequency Musc Denies back pain Skin/Breast Denies rash Neuro Denies dizziness and Denies headache(s) Endo Reports fatigue and Denies palpitations Aller/Immun Denies wheezing Physical exam (Primary Care) Vital Signs: Last Vital Signs Pulse 73 12/17/23 15:58 BP 160/78 H 12/17/23 15:58 Pulse Ox 97 12/17/23 15:58 Oxygen Delivery Method Nasal Cannula 12/17/23 15:58 Oxygen Flow Rate 3 12/17/23 15:58 BMI result Body Mass Index 23.4 Tobacco/Smoking Status: Tobacco use Status Tobacco use date assessed 12/17/23 12/17/23 16:00 Patient Tobacco Use Status Former Tobacco user 12/17/23 15:59 Tobacco use type Cigarette 12/17/23 15:59 PHQ-9: PHQ-9 Score PHQ-9: Total score 0 12/17/23 16:57 Depression Screening Interpretation: Negative Thrive Assessment: Date of Thrive Assessment Date Thrive assessed 08/20/23 12/17/23 15:59 Currently or been in a relationship where the following occur: no concerns reported Const General: no acute distress and alert HENMT Ears: TM's normal bilaterally and EAC's normal Throat: Yes posterior oropharynx normal and Yes tonsils normal (no TP congestion noted) Neck Neck: Yes no lymphadenopathy and Yes supple Thyroid: Thyroid normal Resp Other: (+) oxygen via nasal cannula at 3 LPM Auscultation: no crackles, no rales, rhonchi (occasional) throughout, no wheezes and diminished lung sounds bilateral Cardio Rate: regular rate Rhythm: regular rhythm Heart sounds: no murmurs GI Palpation (GI): Soft to palpation and nontender Auscultation: normal bowel sounds Extrem General: Yes no clubbing, cyanosis or edema Assessment and Plan Assessment & Plan (1) Essential hypertension: Code(s): I10 - Essential (primary) hypertension Plan: Reinforced low sodium diet - goal is systolic BP of at least 140 mm or less Continue Lisinopril 20 mg QD - Rx refilled (2) Pure hypercholesterolemia: Code(s): E78.00 - Pure hypercholesterolemia, unspecified Plan: Reinforced low cholesterol diet Continue Atorvastatin 10 mg QD - Rx refilled Will have patient get his labs and fasting lipids rechecked in 3 months for follow up (3) COPD (chronic obstructive pulmonary disease): Comment: He does have rather severe degree of obstructive airway disorder. Was treated for an acute exacerbation in February 2023 and in 2023 . Now he is relatively stable. Code(s): J44.9 - Chronic obstructive pulmonary disease, unspecified Qualifiers: COPD type: emphysema Emphysema type: unspecified Qualified Code(s): J43.9 - Emphysema, unspecified Plan: Continue Breo Ellipta 100-25 mcg 1 inhalation QD, Spiriva Respimat 2.5 mcg 2 inhalations QD and Albuterol HFA 1 to 2 inhalations Q 6 hours PRN He also does Duoneb updrafts at home every 4 to 6 hours PRN Patient is currently on oxygen inhalation at 3 LPM 18/[address] Sarabia as scheduled for continuing pulmonary follow up and management (4) Vitamin D deficiency: Code(s): E55.9 - Vitamin D deficiency, unspecified Plan: Patient currently does not appear to be on any Vitamin D supplements Will recheck his Vitamin D level in 3 months for follow up (5) Multinodular thyroid: Code(s): E04.2 - Nontoxic multinodular goiter Plan: He has a multinodular thyroid and used to see endocrinology but does not appear to have been back to see endocrinology since 2019 His 1.2 cm nodule was found to be spongiform thus no FNA biopsy was performed He has been advised that thyroid nodules are typically slow growing, and it would not be unreasonable to not do any further surveillance US Patient elected to proceed with yearly surveillance US and to reassess for any changes to his nodules that might warrant FNA biopsy but it does not look like he had any follow up thyroid US since 2019 - will discuss this again with patient at his next follow up appt (6) Hyperparathyroidism: Code(s): E21.3 - Hyperparathyroidism, unspecified Plan: Patient's labs were reportedly consistent with normocalcemic hyperparathyroidism when he was last seen by endocrinology in 2019 His DEXA at the time revealed (+) osteopenia of the hip and the plan then was to repeat his labs and also check a 24 hour urine collection as well as a DEXA of the forearm but patient appears to have been lost to follow up since and also has not had a bone density done in the past 5 years Will recheck his labs and PTH level in 3 months to reassess his current condition and will then think about what he wants to needs to do later on (7) Multifactorial dementia: Code(s): F03.90 - Unspecified dementia, unspecified severity, without behavioral disturbance, psychotic disturbance, mood disturbance, and anxiety Plan: Continue Memantine 5 mg BID Continue Quetiapine 50 mg QD and 100 mg Q HS for agitation Follow up with psychiatry (Dr. John Pandey in [place]) as scheduled (8) Insomnia: Code(s): G47.00 - Insomnia, unspecified Qualifiers: Insomnia type: unspecified Qualified Code(s): G47.00 - Insomnia, unspecified Plan: Sleep hygiene reinforced Continue Melatonin 6 mg Q HS PRN and Trazodone 50 mg Q HS PRN Plan Follow up in 3 months Orders: Orders Complete Blood Count Auto Diff 3 Months D64.9 - Anemia, unspecified Lipid Panel 3 Months E78.00 - Pure hypercholesterolemia, unspecified Vitamin B12 and Folate 3 Months E53.8 - Deficiency of other specified B group vitamins Parathyroid Hormone Intact 3 Months E21.3 - Hyperparathyroidism, unspecified Comprehensive [place]. Panel Fast 3 Months E78.00 - Pure hypercholesterolemia, unspecified TSH reflex Free T4 3 Months E78.00 - Pure hypercholesterolemia, unspecified UA CC w/rflx Micro + Cult 3 Months R30.0 - Dysuria Vitamin D 25-OH Total 3 Months E55.9 - Vitamin D deficiency, unspecified Medications: Changed From atorvastatin 10 mg PO BEDTIME 30 days 30 tabs 0RF To atorvastatin 10 mg PO BEDTIME 90 days 90 tabs 1RF From lisinopril 20 mg PO DAILY 30 days 30 tabs 0RF To lisinopril 20 mg PO DAILY 90 days 90 tabs 1RF Coding Level of Care Code New Pt Level 4 (94350) Diagnoses Essential hypertension I10 Pure hypercholesterolemia E78.00 Pulmonary emphysema, unspecified emphysema type J43.9 COPD type: emphysema Emphysema type: unspecified Vitamin D deficiency E55.9 Multinodular thyroid E04.2 Hyperparathyroidism E21.3 Multifactorial dementia F03.90 Insomnia, unspecified type G47.00 Insomnia type: unspecified Additional Codes RAMONA-7 Assessment Billing - RAMONA-7 Assessment Tool: RAMONA-7 Assessment 21932 ([id number])
== END 2023-12-17 17:07 | disposition home or self-care (01) ==
PROVIDERS: PCP Internal Medicine; Visit Provider Internal Medicine
DX: I10 Essential (primary) hypertension (principal); F03.90 Unspecified dementia, unspecified severity, without behavioral disturbance, psychotic disturbance, mood disturbance, and anxiety; E21.3 Hyperparathyroidism, unspecified; J43.9 Emphysema, unspecified; E55.9 Vitamin D deficiency, unspecified; E04.2 Nontoxic multinodular goiter; G47.00 Insomnia, unspecified
CPT/HCPCS: 99204

== ENCOUNTER 2024-01-29 11:11 | Emergency (ER) | payer MEDICARE, SELFPAY ==
--- NOTE | ~2024-01-29 | CT_ITS ---
EXAMINATION: CT ANGIOGRAM OF THE CHEST WITH AND WITHOUT CONTRAST (CT PULMONARY ANGIOGRAM FOR PE) CLINICAL INFORMATION: Reason for Exam sob +DVT COMPARISON: None available. TECHNIQUE: Prior to contrast administration, noncontrast localization images were obtained. Subsequently, multidetector volumetric imaging was performed from the thoracic inlet to below the diaphragms following the administration of 65 mL Omnipaque 350 intravenous contrast. No contrast reaction reported Sagittal, coronal, and MIP oblique sagittal reformatted images were obtained on the CT workstation, uploaded to PACS, and reviewed. This CT examination was performed using dose optimization techniques as appropriate, variously including the following: *Automated exposure control *Adjustment of mA and/or kV according to patient size (this includes techniques or standardized protocols for targeted exams where dose is matched to indication/reason for exam; i.e. extremities or head) *Use of iterative reconstruction technique Total exam dose-length product 276 mGy-cm FINDINGS: QUALITY OF STUDY/CONTRAST BOLUS: Satisfactory. PULMONARY ARTERIES: No pulmonary emboli. THORACIC AORTA: No aneurysm. LUNG: There are changes of emphysema and small bilateral pleural effusion Central airways are patent. There are no lung nodules. MEDIASTINUM: Normal heart size. No pericardial effusion. No hilar or mediastinal lymphadenopathy. No evidence of septal bowing or right heart strain. CORONARY ARTERY CALCIFICATION: Mild CHEST WALL/AXILLA: No axillary or internal mammary lymphadenopathy. OSSEOUS STRUCTURES: There are multilevel degenerative spondylosis with marginal spurring. There is mild wedge-shaped deformity of L1 vertebral body, seen on image radiograph of lumbar spine from 08/22/2023 UPPER ABDOMEN: There is simple cystic attending from the upper pole of right kidney No reflux of contrast into the hepatic veins to suggest elevated right heart pressures. CT/CT angio chest PE protocol IMPRESSION: No evidence of pulmonary embolism. Changes of emphysema and small bilateral pleural effusion. VTE: negative.
--- NOTE | ~2024-01-29 | US_ITS ---
EXAMINATION: US VENOUS ULTRASOUND WITH DOPPLER LOWER EXTREMITY, BILATERAL CLINICAL INFORMATION: Bilateral lower extremity edema COMPARISON: 02/18/2008 TECHNIQUE: Ultrasound of the deep veins is performed from the hip to the calf with compression sonography and color and pulse Doppler assessment. Spectral analysis with color-flow imaging is performed. FINDINGS: RIGHT: There is an occlusive thrombus within the distal right popliteal vein with absence of flow and loss of compressibility. Nonocclusive thrombus within the proximal right popliteal vein with partial loss of compressibility. There is normal venous compression and respiratory variation and augmented flow. The visualized common femoral vein, superficial femoral vein, profunda femoral vein and the trifurcation region shows no evidence of deep venous thrombosis. There is no significant popliteal fossa cyst. LEFT: There is normal venous compression and respiratory variation and augmented flow. The visualized common femoral vein, superficial femoral vein, profunda femoral vein, popliteal vein, and the trifurcation region shows no evidence of deep venous thrombosis. There is no significant popliteal fossa cyst. Incidental note of left superficial femoral artery proximal and mid occlusion with reconstitution of the distal segment via collateral. US/US venous duplex LE BI IMPRESSION: Acute occlusive thrombus within the distal right popliteal vein and nonocclusive thrombus within the proximal right popliteal vein. No evidence of left-sided deep venous thrombosis. Incidental note of left superficial femoral artery proximal and mid occlusion with reconstitution of the distal segment via collateral. This Critical Result was discussed with Natalie SANCHEZ at 3:53 PM on 01/29/2024 and it was ascertained that the content and urgency of the report was understood at the time of direct communication.
[2024-01-29 11:19] VITALS: BP 115/65; BP 132/65; PULSE 66; PULSE 71; RESP 18; TEMP 36.8; O2SAT 98; BMI 25.2
[2024-01-29 11:21] VITALS: BP 115/65; PULSE 70; RESP 16; TEMP 36.8; O2SAT 100
--- NOTE | 2024-01-29 11:27 | ECG_ITS ---
Test Reason : CARDIAC HISTORY/ LEG EDEMA Blood Pressure : / mmHG Vent. Rate : 066 BPM Atrial Rate : 066 BPM P-R Int : 182 ms QRS Dur : 134 ms QT Int : 432 ms P-R-T Axes : 000 125 050 degrees QTc Int : 452 ms Normal sinus rhythm Right bundle branch block Lateral infarct , age undetermined Abnormal ECG When compared with ECG of 19-APR-2023 07:52, Premature atrial complexes are no longer Present Lateral infarct is now Present Criteria for Inferior infarct are no longer Present Referred By: Natalie Baires Electronically Signed By:Isaias Leo
--- NOTE | 2024-01-29 11:27 | ED.GENADULT ---
HPI - General Adult General Chief complaint: Extremity Injury, Lower Stated complaint: EDEMA Time Seen by Provider: 01/29/24 11:19 Source: patient, RN notes reviewed and old records reviewed Mode of arrival: ambulatory History of Present Illness ED Provider: Natalie Baires PA-C HPI narrative: 83-year-old male with past medical history of COPD on 3L NC at baseline, HLD/CAD, unspecified dementia, presenting to the ED via EMS complaining of bilateral LE pitting edema since yesterday. Reports symptoms slightly improved yesterday however worsened this morning. Denies taking diuretics. Denies new or worsening SOB, CP, injury, abdominal pain, nausea/vomiting Related Data Home Medications ?Medication ?Instructions ?Recorded ?Confirmed trazodone 50 mg tablet 50 mg PO BEDTIME PRN Insomnia 08/20/23 12/17/23 Previous Rx's ?Medication ?Instructions ?Recorded albuterol sulfate 90 mcg/actuation 2 puff inhalation Q6H PRN 03/30/23 aerosol inhaler (ProAir HFA) shortness of breath or wheezing 30 days #1 inhaler clopidogrel 75 mg tablet 75 mg PO DAILY 30 days #30 tabs 03/30/23 melatonin 3 mg tablet 6 mg (2 x 3 mg) PO BEDTIME PRN 03/30/23 Insomnia #60 tabs memantine 5 mg tablet 5 mg PO BID 30 days #60 tabs 03/30/23 quetiapine 100 mg tablet 100 mg PO BEDTIME 30 days #30 tabs 03/30/23 quetiapine 50 mg tablet 50 mg PO DAILY 30 days #30 tabs 03/30/23 fluticasone furoate 100 1 ea inhalation DAILY #60 ea 10/14/23 mcg-vilanterol 25 mcg/dose inhalation powder (Breo Ellipta) atorvastatin 10 mg tablet 10 mg PO BEDTIME 90 days #90 tabs 12/17/23 lisinopril 20 mg tablet 20 mg PO DAILY 90 days #90 tabs 12/17/23 tiotropium bromide 2.5 2 puff inhalation DAILY COPD #4 12/28/23 mcg/actuation mist for inhalation grams (Spiriva Respimat) ipratropium 0.5 mg-albuterol 3 mg 3 ml inhalation Q4-6H PRN wheezing 01/03/24 (2.5 mg base)/3 mL nebulization #180 mL soln Allergies Allergy/AdvReac Type Severity Reaction Status Date / Time No Known Allergies Allergy Mild NONE Verified 01/29/24 11:24 cats dogs ragweed dust pollen Allergy Unknown Unknown Uncoded 01/29/24 11:24 Review of Systems Review of Systems: Constitutional: No Fever, No Chills ENT/Mouth: No Ear Pain, No Nasal Congestion, No sore throat, No Rhinorrhea, No Swallowing Difficulty Cardiovascular: No Chest Pain, No SOB, +edema Respiratory: No Cough, No Sputum Gastrointestinal: No Nausea, No Vomiting, No Abdominal pain Genitourinary: No Dysuria, No Urgency, No Flank Pain Musculoskeletal: No joint pain, No Myalgias, No Joint Swelling Skin: No Skin Lesions, No rash Neuro: No Weakness, No Numbness, No Paresthesias Yes all other systems are reviewed and are negative Constitutional: Constitutional: Reports as per [facility] Past Medical History Attestation statement: The following information was validated with the patient. Source: old records reviewed Medical History Insomnia Pure hypercholesterolemia Essential hypertension Pneumothorax after biopsy Hypoxemia COPD (chronic obstructive pulmonary disease) Pulmonary emphysema Osteopenia Hyperparathyroidism Osteoporosis Vitamin D deficiency Multinodular thyroid Surgical History Hx of prostatectomy Hx of hernia repair Family History Family History Father No problems noted. Mother No problems noted. Social History Social History Household Members: Family Household Members Other:: 2 Housing: House Do you presently have visiting nurse or other home services: Yes Alcohol intake: never Comment: sitter Patient Tobacco Use Status: Former Tobacco user Tobacco use type: Cigarette Advance Directives: No Advance Directives Information Provided: No Advance Directives Date on File: 02/28/23 Do you have a plan to hurt others: No Plan service: No Sexual orientation: Straight/Heterosexual Cognitive needs: Yes Hearing needs: No Vision needs: No Physical Exam ED Vital Signs: Vital Signs - 24 hr 01/29/24 11:19 01/29/24 11:21 01/29/24 12:57 Temperature 98.2 F 98.2 F Pulse Rate 71 70 Respiratory Rate 18 16 Blood Pressure 115/65 115/65 135/53 L Pulse Oximetry 98 100 Oxygen Delivery Method Nasal Cannula Nasal Cannula Oxygen Flow Rate 3 BMI result Body Mass Index 25.2 Const General: cooperative, healthy appearing and no acute distress Orientation/consciousness: patient oriented x3 Limitations: no limitations HENMT Head: Yes normal to inspection and Yes atraumatic Ears: hearing grossly normal bilaterally General nose exam: Normal external nose present Face and sinus: Yes normal facial exam Eyes General: appearance normal, both eyes and all related structures EOM: EOMs intact bilaterally Neck Neck: Yes normal visual inspection and Yes no meningeal signs Resp Effort & Inspection: normal respiratory effort and no respiratory distress Auscultation: clear to auscultation bilaterally, no crackles and no wheezes Cardio Rate: regular rate Heart sounds: S1 normal heart sound present and S2 normal heart sound present Peripheral pulses: Peripheral pulses 2+ throughout GI Inspection: Yes normal to inspection Palpation (GI): Soft to palpation, nontender, no guarding and not rigid Skin Rashes: no rashes Wounds: no wounds Neuro General: patient oriented x3, tone normal and no meningeal signs Cranial nerves: Yes CN's II-XII intact bilaterally Gait exam (Neuro): Normal gait present Extrem Other: 3/4+ bilateral LE pitting edema > LLE (known old injury to Left foot) Course Course Course Narrative: -no leukocytosis. H&H at the patient's baseline US venous duplex LE BI IMPRESSION: Acute occlusive thrombus within the distal right popliteal vein and nonocclusive thrombus within the proximal right popliteal vein. No evidence of left-sided deep venous thrombosis. Incidental note of left superficial femoral artery proximal and mid occlusion with reconstitution of the distal segment via collateral. This Critical Result was discussed with Natalie SANCHEZ at 3:53 PM on 01/29/2024 and it was ascertained that the content and urgency of the report was understood at the time of direct communication. > results discussed with patient and at bedside. Patient currently on Plavix, no other anticoagulation. Reports chronic SOB from known COPD however worsening over the past year with exertional dyspnea per . Will obtain CTA to rule out PE -patient given dose of p.o. Eliquis in the ED. 1630--ED care transferred to [facility] pending CTA and dispo per results Medications Administered Discontinued Medications Generic Name Dose Route Start Last Admin Trade Name Freq PRN Reason Stop Dose Admin Furosemide 40 mg 01/29/24 12:49 01/29/24 12:57 Furosemide 40 Mg/4 Ml Vial IVPUSH 01/29/24 12:50 40 mg ONCE ONE Administration Protocol Medical Decision Making Medical Decision Making [facility] Narrative: 83-year-old male with past medical history of COPD on 3L NC at baseline, HLD/CAD, unspecified dementia, presenting to the ED via EMS complaining of bilateral LE pitting edema since yesterday. On exam vital signs stable, NAD, nontoxic appearing, bilateral LE pitting edema greater to the left. No erythema/warmth or crepitus. Lungs CTA. Concern for CHF vs DVT. No evidence of infection. Unlikely arterial compromise Plan: EKG, labs, CXR, venous duplex ultrasound Please refer to course for remaining clinical decision making, interpretation of labs/imaging results, and discussions with consultants and/or family members. Differential Diagnosis Differential Diagnoses: The differential diagnosis associated with the presentation includes As above Admission/Observation Consideration of admission/observation: Escalation of care including admission/observation considered Lab Data [facility] Lab Attestation statement: I reviewed the patient's lab results. 01/29/24 11:44 01/29/24 11:44 Labs: Lab Results 01/29/24 Range/Units 11:44 WBC 8.3 (4.8-10.8) X10*3/uL RBC 4.02 L (4.60-5.80) X10*6/uL Hgb 13.0 L (14.0-18.0) g/dl Hct 40.0 L (42.0-52.0) % MCV 99.5 H (80.0-98.0) fL MCH 32.3 (27.0-33.0) pg MCHC 32.5 (31.0-36.0) g/dl RDW 12.5 (11.0-16.0) % Plt Count 186 (160-400) X10*3/uL MPV 10.3 (9.4-12.4) fL Immature Gran % (Auto) 1.1 H (0.0-0.4) % Neut % (Auto) 71.7 (45-73) % Lymph % (Auto) 13.0 L (20-40) % [place] % (Auto) 10.1 (2-11) % Eos % (Auto) 3.1 (0-4) % Baso % (Auto) 1.0 (0-2) % Lymph # (Auto) 1.1 L (1.2-4.9) X10*3/uL [place] # (Auto) 0.8 (0.1-1.2) X10*3/uL Eos # (Auto) 0.3 (0.0-0.4) X10*3/uL Baso # (Auto) 0.1 (0.0-0.2) X10*3/uL Abs Immat Gran (auto) 0.09 H (0.00-0.03) X10*3/uL Absolute Neuts (auto) 6.0 (2.0-8.3) x10*3/uL Absolute Nucleated RBC 0.000 (0.0-0.012) X10*3/uL Nucleated RBC % (auto) 0.0 (0.0-0.2) /100WBC PT 11.5 (11.1-13.3) SEC INR 0.9 (0.9-1.1) APTT 29.4 (26.0-36.8) SEC Sodium 144 (135-145) mmol/L Potassium 4.6 (3.3-5.1) mmol/L Chloride 107 (96-108) mmol/L Carbon Dioxide 32 H (22-29) mmol/L Anion Gap 10 L (12-20) BUN 23 H (9-16) mg/dL Creatinine 1.14 (0.5-1.4) mg/dL Estim Creat Clear Calc 50.6 Estimated GFR > 60 Random Glucose 101 (60-115) mg/dL Calcium 9.0 (8.4-10.2) mg/dL Magnesium 2.0 (1.6-2.6) mg/dL Total Bilirubin 0.4 (0.0-1.0) mg/dL Direct Bilirubin 0.2 (0.0-0.5) mg/dL AST 18 (5-37) U/L ALT 14 (0-40) U/L Alkaline Phosphatase 126 H (39-117) U/L B-Natriuretic Peptide 69 (<100) pg/mL Total Protein 6.8 (6.5-8.0) g/dL Albumin 3.7 (3.5-5.0) g/dL Independent Interpretation I performed an independent interpretation of an: Ultrasound Radiology Impression Discussion of test interpretation with radiology: I have reviewed the radiologist's reading. Independent Historian Clinical information obtained from an independent historian. History obtained from or confirmed by: EMS External Record Review External record reviewed: Inpatient record, Office record, Outpatient record, Prior outpatient labs, Prior outpatient radiology, Primary care record and Outside ED record Tests considered The following testing was considered but not selected: As above Chronic Conditions Patient?s care impacted by: Other (COPD) Discharge Plan Discharge Clinical Impression: DVT (deep venous thrombosis) Patient Disposition: Still a Patient Prescriptions: No Action fluticasone furoate-vilanterol [Breo Ellipta] 100-25 mcg/dose blister with device 1 ea inhalation DAILY Qty: 60 5RF Spiriva Respimat 2.5 mcg/actuation mist 2 puff inhalation DAILY Qty: 4 3RF ipratropium-albuterol 0.5 mg-3 mg(2.5 mg base)/3 mL solution for nebulization 3 ml inhalation Q4-6H PRN (Reason: wheezing) Qty: 180 11RF quetiapine 100 mg Tablet 100 mg PO BEDTIME 30 Days Qty: 30 0RF memantine 5 mg Tablet 5 mg PO BID 30 Days Qty: 60 0RF quetiapine 50 mg Tablet 50 mg PO DAILY 30 Days Qty: 30 0RF melatonin 3 mg Tablet 6 mg PO BEDTIME PRN (Reason: Insomnia) Qty: 60 0RF clopidogrel 75 mg tablet 75 mg PO DAILY 30 Days Qty: 30 0RF albuterol sulfate [ProAir HFA] 90 mcg/actuation HFA aerosol inhaler 2 puff inhalation Q6H PRN (Reason: shortness of breath or wheezing) 30 Days Qty: 1 0RF trazodone 50 mg tablet 50 mg PO BEDTIME PRN (Reason: Insomnia) lisinopril 20 mg tablet 20 mg PO DAILY 90 Days Qty: 90 1RF atorvastatin 10 mg tablet 10 mg PO BEDTIME 90 Days Qty: 90 1RF Print Language: Kyrgyz
[2024-01-29 11:56] LABS: MANUAL DIFF FLAG NO
[2024-01-29 11:58] LABS: Basophils Absolute Auto 0.1 X10*3/uL (0.0-0.2); Eosinophils Absolute Auto 0.3 X10*3/uL (0.0-0.4); Eosinophils Percent Auto 3.1 % (0-4); Imm Gran Abs Auto 0.09 X10*3/uL (0.00-0.03); Imm Gran Pct Auto 1.1 % (0.0-0.4); Lymphocytes Absolute Auto 1.1 X10*3/uL (1.2-4.9); Mean Corpuscular HGB Conc 32.5 g/dl (31.0-36.0); Mean Corpuscular Hemoglobin 32.3 pg (27.0-33.0); Mean Corpuscular Volume 99.5 fL (80.0-98.0); Mean Platelet Volume 10.3 fL (9.4-12.4); Monocytes Absolute Auto 0.8 X10*3/uL (0.1-1.2); Monocytes Percent Auto 10.1 % (2-11); Neutrophils Percent Auto 71.7 % (45-73); Platelet Count 186 X10*3/uL (160-400); Red Blood Count 4.02 X10*6/uL (4.60-5.80); Red Cell Distribution Width 12.5 % (11.0-16.0); White Blood Count 8.3 X10*3/uL (4.8-10.8)
[2024-01-29 12:04] LABS: INTERNATIONAL NORM RATIO 0.9 (0.9-1.1); Prothrombin Time 11.5 SEC (11.1-13.3)
[2024-01-29 12:18] LABS: Alanine Aminotransferase 14 U/L (0-40); Albumin Level 3.7 g/dL (3.5-5.0); Alkaline Phosphatase 126 U/L (39-117); Anion Gap 10 (12-20); Aspartate Amino Transferase 18 U/L (5-37); Bilirubin Direct 0.2 mg/dL (0.0-0.5); Bilirubin Total 0.4 mg/dL (0.0-1.0); Blood Urea Nitrogen 23 mg/dL (9-16); Carbon Dioxide 32 mmol/L (22-29); Chloride 107 mmol/L (96-108); Creatinine Clr Calc Pharmacy 50.6; Estimated Glomerular Filt Rate > 60; Glucose Random 101 mg/dL (60-115); Potassium 4.6 mmol/L (3.3-5.1); Sodium 144 mmol/L (135-145); Total Protein 6.8 g/dL (6.5-8.0)
[2024-01-29 12:22] LABS: B Type Natriuretic Peptide 69 pg/mL (<100)
[2024-01-29 12:57] VITALS: BP 135/53
[2024-01-29] MEDS: Furosemide 40 MG/4 ML VIAL IVPUSH (12:57)
[2024-01-29 16:12] LABS: Partial Thromboplastin Time 29.4 SEC (26.0-36.8)
--- NOTE | 2024-01-29 16:37 | PC.NURSE ---
1400 mL collected from urinals in patients room.
[2024-01-29] MEDS: Apixaban 5 MG TABLET 10 MG PO (16:42)
[2024-01-29] MEDS: iohexoL 350 MG/ML 100 ML INFUS..BTL 65 ML IV (16:45)
[2024-01-29 18:41] VITALS: BP 144/60; PULSE 73; RESP 18; TEMP 36.8; O2SAT 100
[2024-01-29 19:03] VITALS: BP 144/60; PULSE 73; RESP 18; TEMP 36.8; O2SAT 100
== END 2024-01-29 19:03 | disposition home or self-care (01) ==
PROVIDERS: Physician Assistant; Emergency Provider Emergency Medicine; PCP Internal Medicine
DX: I82.431 Acute embolism and thrombosis of right popliteal vein (principal); I74.3 Embolism and thrombosis of arteries of the lower extremities; R60.0 Localized edema; J90 Pleural effusion, not elsewhere classified; E78.00 Pure hypercholesterolemia, unspecified; J44.9 Chronic obstructive pulmonary disease, unspecified; Z99.81 Dependence on supplemental oxygen; Z86.711 Personal history of pulmonary embolism; Z79.01 Long term (current) use of anticoagulants; Z79.899 Other long term (current) drug therapy; Z79.02 Long term (current) use of antithrombotics/antiplatelets; Z87.891 Personal history of nicotine dependence
CPT/HCPCS: 36415; 71275; 80048; 80076; 83735; 83880; 85025; 85610; 85730; 93005; 93970; 96374; 99284; J1940; Q9967

== ENCOUNTER → 2024-01-29 11:27 | Outpatient (BNV) | payer MEDICARE, SELFPAY | PROVIDERS: Emergency Provider Emergency Medicine; PCP Internal Medicine; Visit Provider Internal Medicine Cardiovascular Disease | DX: R94.31 Abnormal electrocardiogram [ECG] [EKG] (principal) | CPT/HCPCS: 93010 ==

== ENCOUNTER 2024-02-04 13:31 | Outpatient (AMB) | payer MEDICARE, SELFPAY ==
--- NOTE | 2024-02-04 13:48 | MHC.PC.OV ---
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 Accompanied by: Spouse Allergies No Known Allergies Allergy (Mild, Verified 02/04/24 15:09) NONE cats dogs ragweed dust pollen Allergy (Unknown, Uncoded 02/04/24 15:09) Unknown Medication List - Last Reconciled 02/04/24 by Alex Harvey MD albuterol sulfate 90 mcg/actuation (ProAir HFA) 2 puffs inhalation Q6H PRN 30 days apixaban (Eliquis DVT-PE Treat 30D Start) 5 mg PO BID atorvastatin 10 mg PO BEDTIME 90 days clopidogrel 75 mg PO DAILY 30 days fluticasone furoate-vilanterol 100-25 mcg/dose (Breo Ellipta) 1 ea inhalation DAILY ipratropium-albuterol 0.5 mg-3 mg(2.5 mg base)/3 mL 3 mL inhalation Q4-6H PRN lisinopril 20 mg PO DAILY 90 days melatonin 6 mg (2 x 3 mg) PO BEDTIME PRN memantine 5 mg PO BID 30 days quetiapine 100 mg PO BEDTIME 30 days quetiapine 50 mg PO DAILY 30 days tiotropium bromide 2.5 mcg/actuation (Spiriva Respimat) 2 puffs inhalation DAILY trazodone 50 mg PO BEDTIME PRN Tobacco use date assessed: 12/17/23 Fall risk assessment: No Falls in past year Last assessed Fall Risk: 02/04/24 Dental Screening Dental Screen Date: 12/17/23 HPI discharge f/u HPI Details Patient comes in today for his HDF follow up visit He was brought to the ER last week for increasing swelling of both legs Venous doppler done revealed (+) thrombus in the right popliteal vein CT angio done came out negative for pulmonary embolism He was started on Eliquis; was also started on Furosemide for his edema and will need both Rx refilled if he is to continue on both meds He denies any headaches or dizziness Denies any chest pains; relates (+) BUSTAMANTE lately No nausea/vomiting, no abdominal pain No change in bowel habits noted His states that patient's toenails are very thick and disfigured and would like to know where they can go to get his toenails addressed ON LICENSE OF [facility] Medical History Insomnia Pure hypercholesterolemia Essential hypertension Pneumothorax after biopsy Hypoxemia COPD (chronic obstructive pulmonary disease) Pulmonary emphysema Osteopenia Hyperparathyroidism Osteoporosis Vitamin D deficiency Multinodular thyroid Surgical History Hx of prostatectomy Hx of hernia repair Family History Father No problems noted. Mother No problems noted. Social History Household Members: Family Household Members Other:: 2 Housing: House Do you presently have visiting nurse or other home services: Yes Alcohol intake: never Comment: sitter Patient Tobacco Use Status: Former Tobacco user Tobacco use type: Cigarette e-Cigarette/Vaping Use: Never Used Advance Directives Date on File: 02/28/23 service: No Sexual orientation: Straight/Heterosexual Cognitive needs: Yes Hearing needs: No Vision needs: No Questionnaire Thrive Questionnaire Date Thrive assessed: 12/17/23 RAMONA-7 AMB Questionnaire RAMONA-7 Date RAMONA - 7 assessed: 12/17/23 Source: Developed by Drs. Hari Fraser, Cally Jeter, Pascual Hawthorne and colleagues, with an educational lynda from [employer]. Review of Systems Const Denies chills, Reports fatigue, Denies fever(s) and Denies headache(s) ENT Denies dysphagia, Denies dizziness, Denies otalgia, Denies headache(s), Denies odynophagia and Denies sore throat Card Denies chest pain, Denies lightheadedness, Denies palpitations and Reports dyspnea on exertion Resp Denies cough, Reports dyspnea on exertion and Denies wheezing GI Denies abdominal pain, Denies constipation, Denies dysphagia, Denies heartburn, Denies diarrhea, Denies nausea, Denies odynophagia and Denies vomiting Denies dysuria, Denies nocturia and Denies urinary frequency Musc Denies back pain Skin/Breast Denies rash Neuro Denies dizziness and Denies headache(s) Endo Reports fatigue and Denies palpitations Aller/Immun Denies wheezing Physical exam (Primary Care) Vital Signs: Last Vital Signs Pulse 91 02/04/24 14:36 BP 148/80 H 02/04/24 14:36 Pulse Ox 98 02/04/24 14:36 Oxygen Delivery Method Nasal Cannula 02/04/24 14:36 Oxygen Flow Rate 4 02/04/24 14:36 BMI result Body Mass Index 25.0 Tobacco/Smoking Status: Tobacco use Status Tobacco use date assessed 12/17/23 02/04/24 13:48 Patient Tobacco Use Status Former Tobacco user 02/04/24 13:48 Tobacco use type Cigarette 02/04/24 13:48 e-Cigarette/Vaping Use Never Used 02/04/24 14:44 Thrive Assessment: Date of Thrive Assessment Date Thrive assessed 12/17/23 02/04/24 13:48 Const General: no acute distress and alert HENMT Throat: Yes posterior oropharynx normal and Yes tonsils normal (no TP congestion noted) Neck Neck: Yes no lymphadenopathy and Yes supple Thyroid: Thyroid normal Resp Other: (+) oxygen via nasal cannula at 3 LPM Auscultation: no crackles, no rales, rhonchi (occasional) throughout, no wheezes and diminished lung sounds bilateral Cardio Rate: regular rate Rhythm: regular rhythm Heart sounds: no murmurs GI Palpation (GI): Soft to palpation and nontender Auscultation: normal bowel sounds Skin Other: (+) onycholysis of several toenails on both feet Extrem General: No clubbing, No cyanosis and Yes edema (2+ bipedal edema) Assessment and Plan Assessment & Plan (1) DVT (deep venous thrombosis): Code(s): I82.409 - Acute embolism and thrombosis of unspecified deep veins of unspecified lower extremity Qualifiers: Affected thrombotic vein of extremity: other lower extremity vein Chronicity: acute DVT location: lower extremity Laterality: bilateral Qualified Code(s): I82.493 - Acute embolism and thrombosis of other specified deep vein of lower extremity, bilateral Plan: Venous doppler of both lower extremity done at the ER last week revealed (+) acute occlusive thrombus within the distal right popliteal vein and non-occlusive thrombus within the proximal right popliteal vein with no evidence of left-sided deep venous thrombosis He also had a left superficial femoral artery proximal and mid occlusion with reconstitution of the distal segment via collateral Continue Apixaban 5 mg BID - Rx refilled Will refer him to vascular surgery for further evaluation and management (2) Chronic respiratory failure with hypoxia: Comment: Patient has chronic hypoxemia. Being treated with O2 2 L/minute when at rest and 3 L/minute with any physical activity. He is asking if he can get a POC unit for convenient portability. Code(s): J96.11 - Chronic respiratory failure with hypoxia Plan: Will send patient for chest x-rays for further evaluation (3) Bilateral lower extremity edema: Code(s): R60.0 - Localized edema Plan: Continue Furosemide 20 mg Q AM - Rx refilled Patient is advised to eat bananas daily to help replenish his potassium level and avoid hypokalemia (4) Onychomycosis: Code(s): B35.1 - Tinea unguium Plan: Will refer him to podiatry for further evaluation and management Plan Follow up as scheduled in March 2024 Orders: Orders XR chest 2V 04/15/24 J43.9 - Emphysema, unspecified, J90 - Pleural effusion, not elsewhere classified Referrals Podiatry Referral B35.1 - Tinea unguium Vascular Surgery Referral I82.409 - Acute embolism and thrombosis of unspecified deep veins of unspecified lower extremity Medications: New furosemide 20 mg PO QAM 30 tabs 2RF edema apixaban 5 mg PO BID 60 tabs 3RF 30 days Coding Level of Care Code Est Pt Level 4 (51946) Diagnoses Acute deep vein thrombosis (DVT) of other specified vein of both lower extremities I82.493 Affected thrombotic vein of extremity: other lower extremity vein Chronicity: acute DVT location: lower extremity Laterality: bilateral Chronic respiratory failure with hypoxia J96.11 Bilateral lower extremity edema R60.0 Onychomycosis B35.1
[2024-02-04 14:36] VITALS: BP 148/80; PULSE 91; O2SAT 98; BMI 25.0
== END 2024-02-04 15:20 | disposition home or self-care (01) ==
PROVIDERS: PCP Internal Medicine; Visit Provider Internal Medicine
DX: I82.493 Acute embolism and thrombosis of other specified deep vein of lower extremity, bilateral (principal); J96.11 Chronic respiratory failure with hypoxia; R60.0 Localized edema; B35.1 Tinea unguium
CPT/HCPCS: 99214

== ENCOUNTER 2024-02-07 10:54 | Outpatient (AMB) | payer MEDICARE, SELFPAY ==
--- NOTE | 2024-02-07 11:02 | MHC.OFFVIS ---
Vital Signs 02/07/24 11:03 Height 5 ft 10 in Weight 170 lb 13.732 oz BMI 24.5 BP 130/70 Blood Pressure Location Lt brachial Position Sitting Pulse 71 Pulse Source Pulse Oximeter Pulse Oximetry (%) 97 Oxygen Delivery Method Nasal Cannula Oxygen Flow Rate 3 Intake Visit Reasons: Emphysema Intake Note: pt is here for follow up and was in HH a few weeks ago, blood clot in legs, and he is feeling okay, when walking he does get short winded. Customs Collector Required: No Allergies No Known Allergies Allergy (Mild, Verified 02/07/24 11:30) NONE cats dogs ragweed dust pollen Allergy (Unknown, Uncoded 02/07/24 11:30) Unknown Medication List - Last Reconciled 02/07/24 by Cedric Sarabia MD albuterol sulfate 90 mcg/actuation (ProAir HFA) 2 puffs inhalation Q6H PRN 30 days apixaban (Eliquis DVT-PE Treat 30D Start) 5 mg PO BID apixaban 5 mg PO BID 30 days atorvastatin 10 mg PO BEDTIME 90 days clopidogrel 75 mg PO DAILY 30 days fluticasone furoate-vilanterol 100-25 mcg/dose (Breo Ellipta) 1 ea inhalation DAILY furosemide 20 mg PO QAM ipratropium-albuterol 0.5 mg-3 mg(2.5 mg base)/3 mL 3 mL inhalation Q4-6H PRN lisinopril 20 mg PO DAILY 90 days melatonin 6 mg (2 x 3 mg) PO BEDTIME PRN memantine 5 mg PO BID 30 days quetiapine 100 mg PO BEDTIME 30 days quetiapine 50 mg PO DAILY 30 days tiotropium bromide 2.5 mcg/actuation (Spiriva Respimat) 2 puffs inhalation DAILY trazodone 50 mg PO BEDTIME PRN Do you need a note to return to daycare/school/sports/work: No HPI HPI Emphysema: Details: 83 YEARS OLD GENTLEMAN IS HERE FOR 4 MONTHS FOLLOW-UP FOR HIS COPD. RECENTLY HE WAS HOSPITALIZED BUT MAINLY DUE TO DEEP VEIN THROMBOSIS OF LOWER EXTREMITIES. HE IS ON ANTICOAGULATION WITH APIXABAN 5 MG B.I.D.. BREATHING VAZQUEZ HAS BEEN VERY STABLE IN THE LAST 4 MONTHS. HE HAS HAD NO RESPIRATORY INFECTION. CONTINUES TO USE HIS MEDS REGULARLY. HE USES OXYGEN 3 L/MINUTE WHEN OUTDOORS AND 2 L/MINUTE AT HOME. HE CLAIMS THAT AT PRESENT HIS. BREATHING IS VERY STABLE [facility] Medical History Insomnia Pure hypercholesterolemia Essential hypertension Pneumothorax after biopsy Hypoxemia COPD (chronic obstructive pulmonary disease) Pulmonary emphysema Osteopenia Hyperparathyroidism Osteoporosis Vitamin D deficiency Multinodular thyroid Surgical History Hx of prostatectomy Hx of hernia repair Family History Father No problems noted. Mother No problems noted. Social History Household Members: Family Household Members Other:: 2 Housing: House Do you presently have visiting nurse or other home services: Yes Alcohol intake: never Comment: sitter Patient Tobacco Use Status: Former Tobacco user Tobacco use type: Cigarette e-Cigarette/Vaping Use: Never Used Advance Directives Date on File: 02/28/23 service: No Sexual orientation: Straight/Heterosexual Cognitive needs: Yes Hearing needs: No Vision needs: No Review of Systems Const All systems reviewed & are unremarkable except as noted in HPI and below Reports weakness (MINIMAL RESIDUAL WEAKNESS OF THE LEFT UPPER EXTREMITY) Eyes Reports no additional complaints ENT Reports no additional complaints Card Denies chest pain, Denies irregular heart rhythm, Denies leg edema and Reports dyspnea on exertion (MILD) Resp Reports as per HPI and Reports dyspnea on exertion (MILD) GI Reports no additional complaints Reports no additional complaints Musc Reports abnormal gait (HE USES WALKER,) and Reports back pain Skin/Breast Reports rash (HE HAS HAD NONSPECIFIC ERYTHEMATOUS RASH ON HIS BACK ) Neuro Reports abnormal gait (HE USES WALKER,) and Reports weakness (MINIMAL RESIDUAL WEAKNESS OF THE LEFT UPPER EXTREMITY) Psych Reports anxiety (MILD, HAS TO USE ALPRAZOLAM ONCE IN A WHILE) Endo Reports no additional complaints Isidoro/Lymph Reports no additional complaints Aller/Immun Reports no additional complaints Physical Exam Vital Signs: Last Vital Signs Pulse 71 02/07/24 11:03 BP 130/70 02/07/24 11:03 Pulse Ox 97 02/07/24 11:03 Oxygen Delivery Method Nasal Cannula 02/07/24 11:03 Oxygen Flow Rate 3 02/07/24 11:03 BMI result Body Mass Index 24.5 Const General: comfortable, no acute distress, alert and awake Orientation/consciousness: patient oriented x3 HEENT Head: Yes normal to inspection General nose exam: No nasal polyps present and No nasal discharge present Face and sinus: Yes sinuses nontender Mouth: oropharynx normal Throat: Yes posterior oropharynx normal Eyes General: appearance normal, both eyes and all related structures Neck Neck: Yes normal visual inspection, Yes no lymphadenopathy, Yes trachea midline and Yes no JVD Thyroid: Thyroid normal Chest Chest palpation & inspection: normal inspection of the chest, normal palpation of entire chest wall and no tenderness Resp Other: PERCUSSION NOTE IS HYPER-RESONANT, BREATH SOUNDS ARE DISTANT WITH PROLONGED EXPIRATORY PHASE BUT EQUAL ON BOTH SIDES. NO AUDIBLE WHEEZES OR CREPITATIONS. Cardio Palpation: normal PMI Rate: regular rate Rhythm: regular rhythm Heart sounds: no gallops and no murmurs GI Palpation (GI): Soft to palpation, nontender, No hepatosplenomegaly present and no masses Auscultation: normal bowel sounds Back/Spine/Pelvis Thoracic/Lumbar Spine: thoracic and lumbar spine normal to inspection and thoraco-lumbar ROM limited Skin General skin exam: no rashes or lesions noted and other (HE HAS MULTIPLE ERYTHEMATOUS DISC I ADDED AREAS ON THE WHOLE BACK) Neuro General: patient oriented x3, No gait normal (GAIT IMPAIRED DUE TO BACK PAIN, AND HE USES WALKER) and no focal motor deficits Cranial nerves: Yes CN's II-XII intact bilaterally Extrem General: Yes normal to inspection, Yes no clubbing, cyanosis or edema and Yes no calf tenderness Psych Appearance: grossly normal and well kempt Speech and movement: Normal speech and movement present Assessment & Plan Assessment & Plan (1) COPD (chronic obstructive pulmonary disease): Comment: He does have rather severe degree of obstructive airway disorder. Was treated for an acute exacerbation in February 2023 and in 2023 . Now he is relatively stable. He has had no recurrent respiratory infections since the July 2023 Code(s): J44.9 - Chronic obstructive pulmonary disease, unspecified Category: Medical Qualifiers: COPD type: emphysema Emphysema type: unspecified Qualified Code(s): J43.9 - Emphysema, unspecified Plan: Continue using Breo Ellipta 100-251 inhalation daily Spiriva Respimat 2.5 mg 2 inhalation daily. Albuterol HFA 2 puffs Q 4-6 hours p.r.n. Ipratropium says-albuterol solution in the nebulizer Q 6 hours p.r.n. . (2) Chronic respiratory failure with hypoxia: Comment: Patient has chronic hypoxemia. Being treated with O2 2 L/minute when at rest and 3 L/minute with any physical activity. Code(s): J96.11 - Chronic respiratory failure with hypoxia Category: Medical Plan: Advised to continue use using oxygen 2 L/minute all the times. When outdoors may use 3 L/minute Coding Level of Care Code Est Pt Level 3 (90355) Diagnoses Pulmonary emphysema, unspecified emphysema type J43.9 COPD type: emphysema Emphysema type: unspecified Chronic respiratory failure with hypoxia J96.11
[2024-02-07 11:03] VITALS: BP 130/70; PULSE 71; O2SAT 97; BMI 24.5
== END 2024-02-07 11:39 | disposition home or self-care (01) ==
PROVIDERS: PCP Nurse Practitioner Family; Visit Provider Internal Medicine
DX: J43.9 Emphysema, unspecified (principal); J96.11 Chronic respiratory failure with hypoxia
CPT/HCPCS: 99213

== ENCOUNTER → 2024-02-07 10:54 | Outpatient (BNVA) | payer MEDICARE, SELFPAY | PROVIDERS: PCP Nurse Practitioner Family; Visit Provider Internal Medicine | DX: J43.9 Emphysema, unspecified (principal); J96.11 Chronic respiratory failure with hypoxia | CPT/HCPCS: 99212 ==

== ENCOUNTER 2024-02-12 02:03 | Emergency (ER) | payer MEDICARE, SELFPAY ==
--- NOTE | ~2024-02-12 | XR_ITS ---
EXAMINATION: XR FOOT, LEFT CLINICAL INFORMATION: Pain COMPARISON: 09/13/2022 TECHNIQUE: AP, lateral, and oblique views of the left foot. 3 views FINDINGS: No radiographic evidence of acute fracture or dislocation. Redemonstration of cortical irregularity and developed bridging osteophytes fusing the proximal diaphysis of the second third and fourth metatarsals causing intermetatarsal correlation. Underlying mild to moderate degenerative osteoarthritic changes involving the first metatarsophalangeal joint and interphalangeal joints of all toes. There are vascular calcification and a small inferior calcaneal spur. XR/XR foot LT min 3V IMPRESSION: 1. Redemonstration of cortical irregularity and bridging osteophytes fusing the proximal diaphysis of the second, third and fourth metatarsals causing intermetatarsal correlation. MRI could be utilized for further investigation if clinically indicated. 2. Underlying degenerative osteoarthritis. 3. Small inferior calcaneal spur. 4. Vascular calcification.
[2024-02-12 02:05] VITALS: BP 134/60; PULSE 70; O2SAT 95
[2024-02-12 02:11] VITALS: BP 119/64; PULSE 76; RESP 17; TEMP 37; O2SAT 97
[2024-02-12 02:17] VITALS: BMI 24.2
--- NOTE | 2024-02-12 02:40 | MHC.EDTECH ---
Patient was biba from home ,patient was change into hospital attire ,warm blanket given and Pillow ,call greer within Pt reach .
--- NOTE | 2024-02-12 02:49 | MHC.EDTECH ---
Patient blood drawn and sent to lab .
[2024-02-12 02:52] LABS: MANUAL DIFF FLAG NO
[2024-02-12 02:54] LABS: Basophils Absolute Auto 0.1 X10*3/uL (0.0-0.2); Eosinophils Absolute Auto 0.4 X10*3/uL (0.0-0.4); Hemoglobin 12.3 g/dl (14.0-18.0); Imm Gran Abs Auto 0.06 X10*3/uL (0.00-0.03); Imm Gran Pct Auto 0.7 % (0.0-0.4); Lymphocytes Absolute Auto 1.3 X10*3/uL (1.2-4.9); Lymphocytes Percent Auto 15.2 % (20-40); Mean Corpuscular HGB Conc 34.2 g/dl (31.0-36.0); Mean Corpuscular Hemoglobin 32.8 pg (27.0-33.0); Mean Platelet Volume 10.5 fL (9.4-12.4); Monocytes Absolute Auto 1.1 X10*3/uL (0.1-1.2); Monocytes Percent Auto 12.7 % (2-11); Neutrophils Absolute Auto 5.8 x10*3/uL (2.0-8.3); Neutrophils Percent Auto 66.4 % (45-73); Platelet Count 201 X10*3/uL (160-400); Red Blood Count 3.75 X10*6/uL (4.60-5.80); Red Cell Distribution Width 12.4 % (11.0-16.0); White Blood Count 8.8 X10*3/uL (4.8-10.8)
[2024-02-12 03:02] LABS: INTERNATIONAL NORM RATIO 1.2 (0.9-1.1); Prothrombin Time 14.3 SEC (11.1-13.3)
[2024-02-12 03:10] LABS: Alanine Aminotransferase 10 U/L (0-40); Albumin Level 3.5 g/dL (3.5-5.0); Alkaline Phosphatase 121 U/L (39-117); Anion Gap 15 (12-20); Aspartate Amino Transferase 20 U/L (5-37); Bilirubin Total 0.5 mg/dL (0.0-1.0); Blood Urea Nitrogen 23 mg/dL (9-16); Calcium 9.1 mg/dL (8.4-10.2); Carbon Dioxide 26 mmol/L (22-29); Chloride 104 mmol/L (96-108); Estimated Glomerular Filt Rate 45; Glucose Random 95 mg/dL (60-115); Potassium 4.1 mmol/L (3.3-5.1); Sodium 141 mmol/L (135-145); Total Protein 6.5 g/dL (6.5-8.0)
[2024-02-12 03:17] LABS: B Type Natriuretic Peptide 64 pg/mL (<100)
--- NOTE | 2024-02-12 03:48 | ED.GENADULT ---
HPI - General Adult General Chief complaint: Extremity Injury, Lower Stated complaint: SWOLLEN LEGS Time Seen by Provider: 02/12/24 03:47 Source: patient and family Mode of arrival: ambulatory Limitations: no limitations History of Present Illness ED Provider: pepe BUSTILLO narrative: Patient 83 years old with history of COPD on 6 L oxygen, hypertension, left leg DVT on Eliquis dementia was seen here on 01/28 for leg swelling with normal BNP prescribed Eliquis for DVT and was given Lasix 20 mg daily by PCP complaining of increased pain and swelling of left foot patient has venous Doppler last night which was negative patient is on Eliquis Related Data Home Medications ?Medication ?Instructions ?Recorded ?Confirmed trazodone 50 mg tablet 50 mg PO BEDTIME PRN Insomnia 08/20/23 02/04/24 Previous Rx's ?Medication ?Instructions ?Recorded albuterol sulfate 90 mcg/actuation 2 puff inhalation Q6H PRN 03/30/23 aerosol inhaler (ProAir HFA) shortness of breath or wheezing 30 days #1 inhaler clopidogrel 75 mg tablet 75 mg PO DAILY 30 days #30 tabs 03/30/23 melatonin 3 mg tablet 6 mg (2 x 3 mg) PO BEDTIME PRN 03/30/23 Insomnia #60 tabs memantine 5 mg tablet 5 mg PO BID 30 days #60 tabs 03/30/23 quetiapine 100 mg tablet 100 mg PO BEDTIME 30 days #30 tabs 03/30/23 quetiapine 50 mg tablet 50 mg PO DAILY 30 days #30 tabs 03/30/23 fluticasone furoate 100 1 ea inhalation DAILY #60 ea 10/14/23 mcg-vilanterol 25 mcg/dose inhalation powder (Breo Ellipta) atorvastatin 10 mg tablet 10 mg PO BEDTIME 90 days #90 tabs 12/17/23 lisinopril 20 mg tablet 20 mg PO DAILY 90 days #90 tabs 12/17/23 tiotropium bromide 2.5 2 puff inhalation DAILY COPD #4 12/28/23 mcg/actuation mist for inhalation grams (Spiriva Respimat) ipratropium 0.5 mg-albuterol 3 mg 3 ml inhalation Q4-6H PRN wheezing 01/03/24 (2.5 mg base)/3 mL nebulization #180 mL soln apixaban 5 mg (74 tabs) tablets in 5 mg PO BID #74 ea 01/29/24 a dose pack (Eliquis DVT-PE Treat 30D Start) apixaban 5 mg tablet 5 mg PO BID 30 days #60 tabs 02/04/24 furosemide 20 mg tablet 20 mg PO QAM edema #30 tabs 02/04/24 Allergies Allergy/AdvReac Type Severity Reaction Status Date / Time No Known Allergies Allergy Mild NONE Verified 02/12/24 02:19 cats dogs ragweed dust pollen Allergy Unknown Unknown Uncoded 02/12/24 02:19 Review of Systems Review of Systems: Yes all other systems are reviewed and are negative [facility] Past Medical History Medical History Insomnia Pure hypercholesterolemia Essential hypertension Pneumothorax after biopsy Hypoxemia COPD (chronic obstructive pulmonary disease) Pulmonary emphysema Osteopenia Hyperparathyroidism Osteoporosis Vitamin D deficiency Multinodular thyroid Surgical History Hx of prostatectomy Hx of hernia repair Family History Family History Father No problems noted. Mother No problems noted. Social History Social History Household Members: Family Household Members Other:: 2 Housing: House Do you presently have visiting nurse or other home services: Yes Alcohol intake: never Comment: sitter Patient Tobacco Use Status: Former Tobacco user Tobacco use type: Cigarette Smoked in Last 30 Days: No e-Cigarette/Vaping Use: Never Used Use of substances other than those prescribed or required for medical reasons: No Advance Directives: Yes Advance Directives on File: Yes Advance Directives Date on File: 02/28/23 service: No Sexual orientation: Straight/Heterosexual Cognitive needs: Yes Hearing needs: No Vision needs: No Physical Exam ED Vital Signs: Vital Signs - 24 hr 02/12/24 02:11 Temperature 98.6 F Pulse Rate 76 Respiratory Rate 17 Blood Pressure 119/64 Pulse Oximetry 97 Oxygen Delivery Method Room Air BMI result Body Mass Index 24.2 Appearance: Alert. Oriented X3. No acute distress. Hard of hearing Eyes: PERRLA, No Nystagmus ENT: Pharynx normal. Oral Mucosa moist Neck: Normal inspection. Neck supple. CVS: Normal heart rate and rhythm. Pulses normal. Respiratory: No respiratory distress. Equal air entry bilateral, prolonged expiration Abdomen: Soft and nontender. Bowel sounds are present, no mass palpable, no CVA tenderness Skin: Skin warm and dry. Normal skin color. Normal skin turgor. Extremities: Trace left lower extremity edema. No calf tenderness Neuro: Oriented X 3. No motor deficit. No sensory deficit.No cerebellar signs , cranial nerves II-XII intact Medical Decision Making Medical Decision Making [facility] Narrative: Patient with left leg swelling with recent history of DVT no signs of CHF discharge patient to keep the left leg elevated Lab Data [facility] Lab Attestation statement: I reviewed the patient's lab results. 02/12/24 02:47 02/12/24 02:47 Labs: Lab Results 02/12/24 02/12/24 Range/Units 02:47 06:02 WBC 8.8 (4.8-10.8) X10*3/uL RBC 3.75 L (4.60-5.80) X10*6/uL Hgb 12.3 L (14.0-18.0) g/dl Hct 36.0 L (42.0-52.0) % MCV 96.0 (80.0-98.0) fL MCH 32.8 (27.0-33.0) pg MCHC 34.2 (31.0-36.0) g/dl RDW 12.4 (11.0-16.0) % Plt Count 201 (160-400) X10*3/uL MPV 10.5 (9.4-12.4) fL Immature Gran % (Auto) 0.7 H (0.0-0.4) % Neut % (Auto) 66.4 (45-73) % Lymph % (Auto) 15.2 L (20-40) % Millard % (Auto) 12.7 H (2-11) % Eos % (Auto) 4.0 (0-4) % Baso % (Auto) 1.0 (0-2) % Lymph # (Auto) 1.3 (1.2-4.9) X10*3/uL Millard # (Auto) 1.1 (0.1-1.2) X10*3/uL Eos # (Auto) 0.4 (0.0-0.4) X10*3/uL Baso # (Auto) 0.1 (0.0-0.2) X10*3/uL Abs Immat Gran (auto) 0.06 H (0.00-0.03) X10*3/uL Absolute Neuts (auto) 5.8 (2.0-8.3) x10*3/uL Absolute Nucleated RBC 0.000 (0.0-0.012) X10*3/uL Nucleated RBC % (auto) 0.0 (0.0-0.2) /100WBC PT 14.3 H D (11.1-13.3) SEC INR 1.2 H (0.9-1.1) Sodium 141 (135-145) mmol/L Potassium 4.1 (3.3-5.1) mmol/L Chloride 104 (96-108) mmol/L Carbon Dioxide 26 (22-29) mmol/L Anion Gap 15 (12-20) BUN 23 H (9-16) mg/dL Creatinine 1.48 H (0.5-1.4) mg/dL Estim Creat Clear Calc 39.0 Estimated GFR 45 Random Glucose 95 (60-115) mg/dL Uric Acid 8.1 H (3.4-7.0) mg/dL Calcium 9.1 (8.4-10.2) mg/dL Total Bilirubin 0.5 (0.0-1.0) mg/dL AST 20 (5-37) U/L ALT 10 (0-40) U/L Alkaline Phosphatase 121 H (39-117) U/L B-Natriuretic Peptide 64 (<100) pg/mL Total Protein 6.5 (6.5-8.0) g/dL Albumin 3.5 (3.5-5.0) g/dL COVID-19 (MIKEY) Negative (Negative) COVID-19 Clin Com See Note Discharge Plan Discharge Clinical Impression: Acute deep vein thrombosis (DVT) of distal end of left lower extremity Patient Disposition: Home, Self-Care Instructions: Deep Vein Thrombosis (ED) Additional Instructions: Your pain and swelling in your left leg is secondary to blood clot which should get better with time Keep your left leg elevated Tylenol for pain, continue blood thinner Follow with your PCP Your COVID test is negative Prescriptions: No Action fluticasone furoate-vilanterol [Breo Ellipta] 100-25 mcg/dose blister with device 1 ea inhalation DAILY Qty: 60 5RF Spiriva Respimat 2.5 mcg/actuation mist 2 puff inhalation DAILY Qty: 4 3RF ipratropium-albuterol 0.5 mg-3 mg(2.5 mg base)/3 mL solution for nebulization 3 ml inhalation Q4-6H PRN (Reason: wheezing) Qty: 180 11RF quetiapine 100 mg Tablet 100 mg PO BEDTIME 30 Days Qty: 30 0RF memantine 5 mg Tablet 5 mg PO BID 30 Days Qty: 60 0RF quetiapine 50 mg Tablet 50 mg PO DAILY 30 Days Qty: 30 0RF melatonin 3 mg Tablet 6 mg PO BEDTIME PRN (Reason: Insomnia) Qty: 60 0RF clopidogrel 75 mg tablet 75 mg PO DAILY 30 Days Qty: 30 0RF albuterol sulfate [ProAir HFA] 90 mcg/actuation HFA aerosol inhaler 2 puff inhalation Q6H PRN (Reason: shortness of breath or wheezing) 30 Days Qty: 1 0RF trazodone 50 mg tablet 50 mg PO BEDTIME PRN (Reason: Insomnia) Eliquis DVT-PE Treat 30D Start 5 mg (74 tabs) tablets,dose pack 5 mg PO BID Qty: 74 0RF lisinopril 20 mg tablet 20 mg PO DAILY 90 Days Qty: 90 1RF atorvastatin 10 mg tablet 10 mg PO BEDTIME 90 Days Qty: 90 1RF furosemide 20 mg tablet 20 mg PO QAM Qty: 30 2RF apixaban 5 mg tablet 5 mg PO BID 30 Days Qty: 60 3RF Interventions: ED Discharge Assessment Last Done: 02/12/24 07:33 Discharge Date/Time: 02/12/24 07:35 Print Language: Ukrainian
[2024-02-12 04:09] VITALS: BP 124/53; PULSE 75; RESP 16; TEMP 36.7; O2SAT 96
[2024-02-12 04:10] LABS: Uric Acid 8.1 mg/dL (3.4-7.0)
[2024-02-12 06:20] LABS: COVID-19 Test Negative (Negative); IDNOW Serial# 6674DD1D
[2024-02-12 06:25] VITALS: BP 151/93; PULSE 76; RESP 18; TEMP 37; O2SAT 98
[2024-02-12 07:33] VITALS: BP 151/93; PULSE 76; RESP 18; TEMP 37; O2SAT 98
== END 2024-02-12 07:35 | disposition home or self-care (01) ==
PROVIDERS: Emergency Provider Internal Medicine
DX: I82.4Z2 Acute embolism and thrombosis of unspecified deep veins of left distal lower extremity (principal); M79.605 Pain in left leg; I10 Essential (primary) hypertension; E78.00 Pure hypercholesterolemia, unspecified; R06.00 Dyspnea, unspecified; F03.90 Unspecified dementia, unspecified severity, without behavioral disturbance, psychotic disturbance, mood disturbance, and anxiety; J44.9 Chronic obstructive pulmonary disease, unspecified; Z99.81 Dependence on supplemental oxygen; Z86.718 Personal history of other venous thrombosis and embolism; Z79.01 Long term (current) use of anticoagulants; Z87.891 Personal history of nicotine dependence
CPT/HCPCS: 36415; 73630; 80053; 83880; 84550; 85025; 85610; 87635; 99283; 99284

== ENCOUNTER 2024-04-18 09:37 | Outpatient (REF) | payer MEDICARE, SELFPAY ==
[2024-04-18 13:11] LABS: MANUAL DIFF FLAG NO
[2024-04-18 13:29] LABS: Basophils Absolute Auto 0.1 X10*3/uL (0.0-0.2); Basophils Percent Auto 1.1 % (0-2); Eosinophils Absolute Auto 0.3 X10*3/uL (0.0-0.4); Eosinophils Percent Auto 2.9 % (0-4); Hematocrit 41.7 % (42.0-52.0); Hemoglobin 13.4 g/dl (14.0-18.0); Imm Gran Abs Auto 0.09 X10*3/uL (0.00-0.03); Lymphocytes Absolute Auto 1.5 X10*3/uL (1.2-4.9); Lymphocytes Percent Auto 16.1 % (20-40); Mean Corpuscular HGB Conc 32.1 g/dl (31.0-36.0); Mean Corpuscular Hemoglobin 32.4 pg (27.0-33.0); Mean Corpuscular Volume 100.7 fL (80.0-98.0); Mean Platelet Volume 10.6 fL (9.4-12.4); Monocytes Absolute Auto 1.1 X10*3/uL (0.1-1.2); Neutrophils Absolute Auto 6.3 x10*3/uL (2.0-8.3); Neutrophils Percent Auto 66.9 % (45-73); Platelet Count 255 X10*3/uL (160-400); Red Blood Count 4.14 X10*6/uL (4.60-5.80); Red Cell Distribution Width 12.6 % (11.0-16.0); White Blood Count 9.4 X10*3/uL (4.8-10.8)
[2024-04-18 14:06] LABS: Parathyroid Hormone Intact 142.4 pg/mL (8.7-77.1)
[2024-04-18 14:10] LABS: TSH reflex Free T4 1.91 uIU/mL (0.32-4.0)
[2024-04-18 14:12] LABS: Folate 10.6 ng/mL (> or = 4.0); Vitamin B12 282 pg/mL (200-900)
== END 2024-04-18 09:38 | disposition home or self-care (01) ==
LOC: HO.HMGCX 09:37
PROVIDERS: PCP Internal Medicine; Visit Provider Internal Medicine
DX: D64.9 Anemia, unspecified (principal); E21.3 Hyperparathyroidism, unspecified; E78.00 Pure hypercholesterolemia, unspecified; E55.9 Vitamin D deficiency, unspecified; E53.8 Deficiency of other specified B group vitamins; J90 Pleural effusion, not elsewhere classified; J43.9 Emphysema, unspecified
CPT/HCPCS: 36415; 71046; 82306; 82607; 82746; 83970; 84443; 85025

== ENCOUNTER 2024-04-19 07:00 | Outpatient (REF) | payer MEDICARE, SELFPAY ==
[2024-04-19 10:11] LABS: Appearance Urine Clear; Color Urine Yellow; Glucose Urine UA Negative (Negative); Leukocyte Esterase Urine Negative (Negative); Nitrite Urine Negative (Negative); PH 5.5 (5.0-9.0); Specific Gravity - Urine <= 1.005 (1.005-1.025); Urine Blood Negative (Negative); Urine Ketones Negative (Negative); Urine Protein Negative (Neg-Trace)
[2024-04-19 11:35] LABS: Alanine Aminotransferase 22 U/L (0-40); Albumin Level 3.5 g/dL (3.5-5.0); Alkaline Phosphatase 126 U/L (39-117); Anion Gap 10 (12-20); Aspartate Amino Transferase 43 U/L (5-37); Bilirubin Total 0.5 mg/dL (0.0-1.0); Blood Urea Nitrogen 27 mg/dL (9-16); Calcium 9.3 mg/dL (8.4-10.2); Carbon Dioxide 31 mmol/L (22-29); Chloride 105 mmol/L (96-108); Cholesterol 126 mg/dL (<200); Estimated Glomerular Filt Rate 47; Glucose Fasting 101 mg/dL (60-99); HDL Cholesterol 49 mg/dL (>40); LDL Cholesterol Calculated 67 mg/dL (<100); Potassium 4.2 mmol/L (3.3-5.1); Sodium 142 mmol/L (135-145); Total Protein 6.7 g/dL (6.5-8.0); Triglycerides 52 mg/dL (<150)
== END 2024-04-19 07:01 | disposition home or self-care (01) ==
LOC: HO.HMGCLDS 07:00
PROVIDERS: PCP Internal Medicine; Visit Provider Internal Medicine
DX: E78.00 Pure hypercholesterolemia, unspecified (principal); R30.0 Dysuria
CPT/HCPCS: 36415; 80053; 80061; 81003

== ENCOUNTER 2024-04-25 13:08 | Outpatient (AMB) | payer MEDICARE, SELFPAY ==
--- NOTE | 2024-04-25 13:18 | A.OFFPC_ITS ---
Vital Signs 04/25/24 13:20 Height 5 ft 10 in Weight 163 lb 8 oz BMI 23.5 BP 130/86 Blood Pressure Location Lt brachial Position Sitting Pulse 73 Pulse Oximetry (%) 99 Oxygen Delivery Method Nasal Cannula Intake Visit Reasons: 3mof\u Intake Note: Patient is here to follow up on HTN, COPD, Hypercholesterolemia, CHF. 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 Accompanied by: Spouse Allergies No Known Allergies Allergy (Mild, Verified 05/02/24 11:22) NONE cats dogs ragweed dust pollen Allergy (Unknown, Uncoded 04/25/24 14:07) Unknown Medication List - Last Reconciled 04/25/24 by Alex Harvey MD albuterol sulfate 90 mcg/actuation (ProAir HFA) 2 puffs inhalation Q6H PRN 30 days apixaban 5 mg PO BID 30 days atorvastatin 10 mg PO BEDTIME 90 days clopidogrel 75 mg PO DAILY 30 days fluticasone furoate-vilanterol 100-25 mcg/dose (Breo Ellipta) 1 ea inhalation DAILY furosemide 20 mg PO QAM ipratropium-albuterol 0.5 mg-3 mg(2.5 mg base)/3 mL 3 mL inhalation Q4-6H PRN lisinopril 20 mg PO DAILY 90 days melatonin 6 mg (2 x 3 mg) PO BEDTIME PRN memantine 5 mg PO BID 30 days quetiapine 100 mg PO BEDTIME 30 days quetiapine 50 mg PO DAILY 30 days tiotropium bromide 2.5 mcg/actuation (Spiriva Respimat) 2 puffs inhalation DAILY trazodone 50 mg PO BEDTIME PRN Tobacco use date assessed: 04/25/24 Fall risk assessment: No Falls in past year Last assessed Fall Risk: 04/25/24 Dental Screening Dental Screen Date: 12/17/23 HPI 3mof\u HPI Details Patient comes in today for his follow up visit States that he currently feels okay He went to the ER a couple of months ago complaining of increasing left foot swelling and some pain He has a Hx of DVT and was still on Eliquis at the time Work ups done at the ER revealed no acute findings and he was eventually discharged home with instructions to continue on his current Rx and to keep his left foot elevated as often as he can for the next week or two He denies any headaches or dizziness Denies any chest pains, no increased shortness of breath No nausea/vomiting, no abdominal pain No change in bowel habits noted He had his follow-up labs done last week - to discuss his results [facility] Medical History Insomnia Pure hypercholesterolemia Essential hypertension Pneumothorax after biopsy Hypoxemia COPD (chronic obstructive pulmonary disease) Pulmonary emphysema Osteopenia Hyperparathyroidism Osteoporosis Vitamin D deficiency Multinodular thyroid Surgical History Hx of prostatectomy Hx of hernia repair Family History Father No problems noted. Mother No problems noted. Social History Household Members: Family Household Members Other:: 2 Housing: House Do you presently have visiting nurse or other home services: Yes Alcohol intake: never Comment: sitter Patient Tobacco Use Status: Former Tobacco user Tobacco use type: Cigarette e-Cigarette/Vaping Use: Never Used Second Hand Smoke Exposure: Yes Advance Directives Date on File: 02/28/23 service: No Current occupational status: retired Sexual orientation: Straight/Heterosexual Cognitive needs: Yes Hearing needs: No Vision needs: No Questionnaire Thrive Questionnaire Date Thrive assessed: 12/17/23 AUDIT C Alcohol Use Questionnaire (AUDIT-C) 2. How many drinks containing alcohol do you have on a typical day when you are drinking?: 1 or 2 3. How often do you have six or more drinks on one occasion?: Never Total Score: 0 RAMONA-7 AMB Questionnaire RAMONA-7 Date RAMONA - 7 assessed: 12/17/23 Source: Developed by Drs. Hari Fraser, Cally Jeter, Pascual Hawthorne and colleagues, with an educational lynda from [employer]. Review of Systems Const Denies chills, Reports fatigue, Denies fever(s) and Denies headache(s) ENT Denies dysphagia, Denies dizziness, Denies otalgia, Denies headache(s), Denies neck pain, Denies odynophagia and Denies sore throat Card Denies chest pain, Denies lightheadedness, Denies palpitations and Reports dyspnea on exertion (mild - has oxygen on) Resp Denies cough, Reports dyspnea on exertion (mild - has oxygen on) and Denies wheezing GI Denies abdominal pain, Denies constipation, Denies dysphagia, Denies heartburn, Denies diarrhea, Denies nausea, Denies odynophagia and Denies vomiting Denies dysuria, Denies nocturia and Denies urinary frequency Musc Denies back pain and Denies neck pain Skin/Breast Denies rash Neuro Denies dizziness and Denies headache(s) Endo Reports fatigue and Denies palpitations Aller/Immun Denies wheezing Physical exam (Primary Care) Vital Signs: Last Vital Signs Pulse 73 04/25/24 13:20 BP 130/86 04/25/24 13:20 Pulse Ox 99 04/25/24 13:20 Oxygen Delivery Method Nasal Cannula 04/25/24 13:20 BMI result Body Mass Index 23.5 Tobacco/Smoking Status: Tobacco use Status Tobacco use date assessed 04/25/24 04/25/24 13:26 Patient Tobacco Use Status Former Tobacco user 04/25/24 13:26 Tobacco use type Cigarette 04/25/24 13:26 e-Cigarette/Vaping Use Never Used 04/25/24 13:26 Thrive Assessment: Date of Thrive Assessment Date Thrive assessed 12/17/23 04/25/24 13:26 Results Reviewed Results Reviewed: Laboratory Tests 04/18/24 04/19/24 04/19/24 09:44 07:06 09:00 WBC 9.4 Hgb 13.4 L Hct 41.7 L Plt Count 255 D Sodium 142 Potassium 4.2 Creatinine 1.43 H Estimated GFR 47 Fasting Glucose 101 H Calcium 9.3 AST 43 H ALT 22 Triglycerides 52 Cholesterol 126 LDL Cholesterol, Calc 67 HDL Cholesterol 49 Vitamin B12 282 25-OH Vitamin D Total 21.0 L TSH 1.91 PTH Intact 142.4 H Ur Specific [place] <= 1.005 Urine Protein Negative Urine Glucose (UA) Negative Urine Blood Negative Urine Nitrite Negative Ur Leukocyte Esterase Negative Coding Level of Care Code Est Pt Level 4 (99196) Diagnoses Chronic respiratory failure with hypoxia J96.11 Acute deep vein thrombosis (DVT) of other specified vein of both lower extremities I82.493 Affected thrombotic vein of extremity: other lower extremity vein Chronicity: acute DVT location: lower extremity Laterality: bilateral Bilateral lower extremity edema R60.0 Essential hypertension I10 Pure hypercholesterolemia E78.00 Vitamin D deficiency E55.9 Hyperparathyroidism E21.3 Multinodular thyroid E04.2 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 Being treated with O2 2 L/minute when at rest and 3 L/minute with any physical activity. Code(s): J96.11 - Chronic respiratory failure with hypoxia Category: Medical Plan: Continue Breo Ellipta 100-25 mcg 1 inhalation QD, Spiriva Respimat 2.5 mcg 2 inhalations QD and Albuterol HFA 1 to 2 inhalations Q 6 hours PRN He also does Duoneb updrafts at home every 4 to 6 hours PRN Patient is currently on oxygen inhalation at 3 LPM 18/[address] Sarabia as scheduled for continuing pulmonary follow up and management (2) DVT (deep venous thrombosis): Code(s): I82.409 - Acute embolism and thrombosis of unspecified deep veins of unspecified lower extremity Category: Medical Qualifiers: Affected thrombotic vein of extremity: other lower extremity vein Chronicity: acute DVT location: lower extremity Laterality: bilateral Qualified Code(s): I82.493 - Acute embolism and thrombosis of other specified deep vein of lower extremity, bilateral Plan: Venous doppler of both lower extremity done at the ER in January 2024 revealed (+) acute occlusive thrombus within the distal right popliteal vein and non- occlusive thrombus within the proximal right popliteal vein with no evidence of left-sided deep venous thrombosis He also had a left superficial femoral artery proximal and mid occlusion with re constitution of the distal segment via collateral Continue Apixaban 5 mg BID Follow up with vascular surgery as scheduled (3) Bilateral lower extremity edema: Code(s): R60.0 - Localized edema Category: Medical Plan: Continue Furosemide 20 mg Q AM (4) Essential hypertension: Code(s): I10 - Essential (primary) hypertension Category: Medical Plan: Reinforced low sodium diet - goal is systolic BP of at least 140 mm or less Continue Lisinopril 20 mg QD (5) Pure hypercholesterolemia: Code(s): E78.00 - Pure hypercholesterolemia, unspecified Category: Medical Plan: Results of his labs done last week reviewed and discussed with patient Reinforced low cholesterol diet Continue Atorvastatin 10 mg QD Will recheck his labs and fasting lipids in 4 months for follow up (6) Vitamin D deficiency: Code(s): E55.9 - Vitamin D deficiency, unspecified Category: Medical Plan: He is advised that his Vitamin D level is low on his recent labs Will start him on Vitamin D3 2000 units QD (7) Hyperparathyroidism: Code(s): E21.3 - Hyperparathyroidism, unspecified Category: Medical Plan: Patient's labs were reportedly consistent with normocalcemic hyperparathyroidism when he was last seen by endocrinology in 2019 His DEXA at the time revealed (+) osteopenia of the hip and the plan then was to repeat his labs and also check a 24 hour urine collection as well as a DEXA of the forearm but patient appears to have been lost to follow up since and also has not had a bone density done in the past 5 years His PTH level was elevated at 142 on his recent labs but his Vitamin D level was also low Will recheck his PTH level when his Vitamin D deficiency is corrected and if it is still elevated at the time, will consider referral for possible parathyroidectomy (8) Multinodular thyroid: Code(s): E04.2 - Nontoxic multinodular goiter Category: Medical Plan: He has a multinodular thyroid and used to see endocrinology but does not appear to have been back to see endocrinology since 2019 His 1.2 cm nodule was found to be spongiform thus no FNA biopsy was performed He has been advised that thyroid nodules are typically slow growing, and it would not be unreasonable to not do any further surveillance US Patient elected to proceed with yearly surveillance US and to reassess for any changes to his nodules that might warrant FNA biopsy but it does not look like he had any follow up thyroid US since 2019 (9) Multifactorial dementia: Code(s): F03.90 - Unspecified dementia, unspecified severity, without behavioral disturbance, psychotic disturbance, mood disturbance, and anxiety Category: Medical Plan: Continue Memantine 5 mg BID Continue Quetiapine 50 mg QD and 100 mg Q HS for agitation Follow up with psychiatry (Dr. John Pandey in [place]) as scheduled (10) Insomnia: Code(s): G47.00 - Insomnia, unspecified Category: Medical Qualifiers: Insomnia type: unspecified Qualified Code(s): G47.00 - Insomnia, unspecified Plan: Sleep hygiene reinforced Continue Melatonin 6 mg Q HS PRN and Trazodone 50 mg Q HS PRN Plan Follow up in 4 months Orders: Orders Comprehensive [place]. Panel Fast 4 Months E78.00 - Pure hypercholesterolemia, unspecified Lipid Panel 4 Months E78.00 - Pure hypercholesterolemia, unspecified
[2024-04-25 13:20] VITALS: BP 130/86; PULSE 73; O2SAT 99; BMI 23.5
== END 2024-04-25 14:11 | disposition home or self-care (01) ==
LOC: HO.HMCH 13:09
PROVIDERS: PCP Internal Medicine; Visit Provider Internal Medicine
DX: J96.11 Chronic respiratory failure with hypoxia (principal); I82.493 Acute embolism and thrombosis of other specified deep vein of lower extremity, bilateral; E21.3 Hyperparathyroidism, unspecified; F03.90 Unspecified dementia, unspecified severity, without behavioral disturbance, psychotic disturbance, mood disturbance, and anxiety; R60.0 Localized edema; I10 Essential (primary) hypertension; E78.00 Pure hypercholesterolemia, unspecified; E55.9 Vitamin D deficiency, unspecified; E04.2 Nontoxic multinodular goiter; G47.00 Insomnia, unspecified

== ENCOUNTER → 2024-04-25 13:08 | Outpatient (BNVA) | payer MEDICARE, SELFPAY | PROVIDERS: PCP Internal Medicine; Visit Provider Internal Medicine | DX: J96.11 Chronic respiratory failure with hypoxia (principal); I82.493 Acute embolism and thrombosis of other specified deep vein of lower extremity, bilateral; R60.0 Localized edema; I10 Essential (primary) hypertension; E78.00 Pure hypercholesterolemia, unspecified; E55.9 Vitamin D deficiency, unspecified; E21.3 Hyperparathyroidism, unspecified; E04.2 Nontoxic multinodular goiter; F03.90 Unspecified dementia, unspecified severity, without behavioral disturbance, psychotic disturbance, mood disturbance, and anxiety; G47.00 Insomnia, unspecified | CPT/HCPCS: 99212 ==

== ENCOUNTER 2024-05-02 11:15 | Outpatient (AMB) | payer MEDICARE, SELFPAY ==
--- NOTE | 2024-05-02 11:19 | MHC.OFFVIS ---
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 Patient went to the emergency room because he had bilateral foot swelling . 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 He was actually seen in the emergency department on 01/29/2024. At that time he was found to have on ultrasound thrombus in the right popliteal vein. At that time he was started on Eliquis. There was an incidental finding of left SFA proximal and mid occlusion. Upon evaluation he is a rather frail 83-year-old gentleman who is oxygen dependent. He reports that he had quit smoking about 10 years prior and prior to that he was smoking about a pack a day. Does report a lot of secondhand smoke exposure. At the current time in terms of activity he is able to ambulate around the house. He does use a walker. He is able to ambulate about a half a block but is shortness of breath seems to be more of an issue than it is for his lower extremities walking distances. He denies any active lower extremity ulcerations at the current time, but he does have a right hip ulcer which he is in the process of trying to heal. Now presents to us for vascular evaluation [facility] Medical History Insomnia Pure hypercholesterolemia Essential hypertension Pneumothorax after biopsy Hypoxemia COPD (chronic obstructive pulmonary disease) Pulmonary emphysema Osteopenia Hyperparathyroidism Osteoporosis Vitamin D deficiency Multinodular thyroid Surgical History Hx of prostatectomy Hx of hernia repair Family History Father No problems noted. Mother No problems noted. Social History Household Members: Family Household Members Other:: 2 Housing: House Do you presently have visiting nurse or other home services: Yes Alcohol intake: never Comment: sitter Patient Tobacco Use Status: Former Tobacco user Tobacco use type: Cigarette e-Cigarette/Vaping Use: Never Used Second Hand Smoke Exposure: Yes Advance Directives Date on File: 02/28/23 service: No Current occupational status: retired Sexual orientation: Straight/Heterosexual Cognitive needs: Yes Hearing needs: No Vision needs: No Review of Systems Const All systems reviewed & are unremarkable except as noted in HPI and below Reports no additional complaints ENT Reports Normal hearing present Card Denies chest pain, Denies chest pain at rest, Denies chest pain with activity and Denies pedal edema Resp Denies cough GI Denies abdominal pain Musc Denies abnormal gait, Denies muscle cramps and Denies radiating pain into limb Skin/Breast Denies skin ulcer and Denies wounds Neuro Reports Normal hearing present and Denies abnormal gait Psych Reports no additional complaints Physical Exam Const General: cooperative, healthy appearing and comfortable Orientation/consciousness: oriented to person, oriented to place and oriented to time HEENT Head: Yes normal to inspection Neck Neck: Yes normal visual inspection Carotids: no bruits Chest Chest palpation & inspection: normal inspection of the chest Resp Effort & Inspection: normal respiratory effort and able to speak in complete sentences Auscultation: clear to auscultation bilaterally, no crackles, no rales, no rhonchi and no wheezes Cardio Rate: regular rate Rhythm: regular rhythm Heart sounds: S1 normal heart sound present and S2 normal heart sound present Bruits: no carotid bruits Peripheral pulses: Peripheral pulses 2+ throughout GI Inspection: Yes normal to inspection Skin Wounds: no wounds Hair: normal Neuro General: oriented to person, oriented to place and oriented to time Cranial nerves: Yes CN's II-XII intact bilaterally and Yes Normal hearing present Cognition (Neuro): normal cognition Motor exam (neuro): 5/5 motor strength present throughout Extrem Other: venous exam: No significant superficial varicosities or spider telangiectasias, minimal edema General: No clubbing, No cyanosis and No edema Psych Appearance: grossly normal Mental Status: mental status grossly normal Speech and movement: Normal speech and movement present Assessment & Plan Assessment & Plan (1) PAD (peripheral artery disease): Code(s): I73.9 - Peripheral vascular disease, unspecified Category: Medical Plan: At the current time the patient does have an element of PA D. It does not appear it is activity limiting as his shortness of breath seems to be more of an issue. I have taken the liberty of ordering baseline arterial ultrasound to get a better sense of that. Due to his overall age and comorbid conditions I would like to manage this as conservatively as possible. He will follow up with us after testing. Please note a longitudinal relationship has been created with the patient and we have been following and surveillance this chronic condition. (2) DVT (deep venous thrombosis): Code(s): I82.409 - Acute embolism and thrombosis of unspecified deep veins of unspecified lower extremity Category: Medical Qualifiers: Affected thrombotic vein of extremity: other lower extremity vein Chronicity: acute DVT location: lower extremity Laterality: bilateral Qualified Code(s): I82.493 - Acute embolism and thrombosis of other specified deep vein of lower extremity, bilateral Plan: In short patient has acute DVT. It is a popliteal DVT below-knee. I do think 6 months of anticoagulation and would stop at that point. I did not identify any additional factors that may have led to this. Does have a prior history of stroke but no additional history of DVT. He is at a high fall risk so would try to keep it to just 6 months and no longer. He is following up with his primary care team. Thank you for allowing us to assist in his care. Orders: Orders US arterial duplex LE BI 1 Week I73.9 - Peripheral vascular disease, unspecified Coding Level of Care Code New Pt Level 4 (52359) Complex EM visit Add On G2211 Diagnoses PAD (peripheral artery disease) I73.9 Acute deep vein thrombosis (DVT) of other specified vein of both lower extremities I82.493 Affected thrombotic vein of extremity: other lower extremity vein Chronicity: acute DVT location: lower extremity Laterality: bilateral
== END 2024-05-02 11:58 | disposition home or self-care (01) ==
LOC: HO.HVS 11:16
PROVIDERS: Visit Provider Surgery Vascular Surgery
DX: I73.9 Peripheral vascular disease, unspecified (principal); I82.493 Acute embolism and thrombosis of other specified deep vein of lower extremity, bilateral
CPT/HCPCS: 99204; G2211

== ENCOUNTER → 2024-05-02 11:15 | Outpatient (BNVA) | payer MEDICARE, SELFPAY | PROVIDERS: Visit Provider Surgery Vascular Surgery | DX: I73.9 Peripheral vascular disease, unspecified (principal); I82.433 Acute embolism and thrombosis of popliteal vein, bilateral | CPT/HCPCS: 99202 ==

== ENCOUNTER 2024-05-18 10:28 | Outpatient (REF) | payer MEDICARE, SELFPAY ==
--- NOTE | ~2024-05-18 | US_ITS ---
EXAMINATION: US RETROPERITONEAL LIMITED (AORTA) CLINICAL INFORMATION: Peripheral vascular disease. COMPARISON: None available. TECHNIQUE: Aguayo-scale, color Doppler and spectral Doppler evaluation of the abdominal aorta. FINDINGS: The aorta is normal. The measurements of the aorta in maximum AP and transverse dimensions respectively are as follows: Proximal: 3.9 x 3.2 cm. Mid: Not visualized Distal: 3.5 x 3.3 cm. The measurements of the common iliac arteries in maximum dimensions are as follows: Right: AP: 2.5 cm. TRV: 2.0 cm. Left: AP: 1.5 cm. TRV: 1.4 cm. US/US abdominal aortic aneurysm IMPRESSION: 1. 3.9 cm abdominal aortic aneurysm. Based on published guidelines in J Am Alisha Radiol 2013; 10(10):789-794 and J Vasc Surg. 2018; 67:2-77, the recommendation for an abdominal aortic aneurysm with diameter 3.5-3.9 cm is follow-up every 2 years. 2. 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 Electronically signed by: Karen Chand MD 06/15/2024 09:58 AM EST
--- NOTE | ~2024-05-18 | US_ITS ---
EXAMINATION: Noninvasive assessment of the bilateral lower extremities with ARTERIAL DUPLEX and ANKLE BRACHIAL INDICES (ABIs). CLINICAL INFORMATION: Peripheral vascular disease TECHNIQUE: Duplex Doppler techniques with waveform analysis and measurement of velocities in the bilateral common femoral, profunda femoris, superficial femoral, popliteal and tibial arteries were performed. Additionally, ankle pulse volume recordings, ankle pressure measurements and ankle brachial indices were obtained of the lower extremity arterial system bilaterally. The study was performed only at rest. Additional grayscale, color-flow and duplex Doppler ultrasound evaluation of the aorta and bilateral iliac arteries COMPARISON: Venous ultrasound from 01/29/2024 FINDINGS: DIRECT DUPLEX DOPPLER FINDINGS: RIGHT LEG: Common femoral artery: 91.9 cm/s, phasicity: Monophasic Profunda femoris artery: 60.1 cm/s, phasicity: Monophasic Superficial femoral artery (proximal): 71.3 cm/s, phasicity: Monophasic Superficial femoral artery (mid): Occluded, there is an aneurysm of the mid segment measuring 3.1 cm in maximum diameter Superficial femoral artery (distal): 36.5 cm/s, phasicity: Monophasic Popliteal artery: 30.0 cm/s, phasicity: Monophasic Posterior tibial artery: 26.2 cm/s, phasicity: Monophasic Peroneal artery: 28.4 cm/s, phasicity: Monophasic Anterior tibial artery: 25.1 cm/s, phasicity: Monophasic Dorsalis pedis artery: 10.8 cm/s, phasicity:Monophasic LEFT LEG: Common femoral artery: 162, phasicity: Monophasic Profunda femoris artery: 162, phasicity: Monophasic Superficial femoral artery (proximal): Occluded Superficial femoral artery (mid): Occluded Superficial femoral artery (distal): Occluded Popliteal artery: 63.8, phasicity: Monophasic Posterior tibial artery: 41.4, phasicity: Monophasic Peroneal artery: 26.0, phasicity: Monophasic Anterior tibial artery: 28.2, phasicity: Monophasic Dorsalis pedis artery: 27.3, phasicity: Monophasic AORTA: There is diffuse aneurysmal dilation of the abdominal aorta. Distal aorta measures 3.0 x 2.7 cm. Scattered calcified plaque is seen. There is also fusiform aneurysm of the bilateral common iliac arteries. Right common iliac artery measures a maximum diameter of 2.60 cm. Left common iliac artery measures a maximum diameter of 1.5 cm. Patent color-flow is seen throughout the abdominal aorta. Distal aorta measures a maximum peak systolic velocity of 41.4 cm/s, monophasic. Right common iliac artery measures maximum velocity of 21.9 cm/s, monophasic. Right external iliac artery measures a maximum velocity of 98.4 cm/s, monophasic. The left common iliac artery measures a maximum velocity of 178 cm/s, monophasic. The left external iliac artery measures a maximum velocity of 250 cm/s, monophasic ANKLE-BRACHIAL INDEX: Right: 0.71 Left: 1.24 ANKLE PRESSURES: Right: PT 114, DP 78 Left: PT 200, DP 137 ANKLE PVR WAVEFORMS: Right: Abnormal Left: Abnormal US/US arterial duplex BI w/ STEPHON IMPRESSION: 1. Diffuse aneurysmal dilation of the abdominal aorta with maximum diameter of 3.0 cm. 2. Aneurysmal dilation of the bilateral common iliac arteries as described above. 3. Occlusion of the bilateral superficial femoral arteries. There is aneurysm of the right superficial femoral artery within the occluded segment measuring a maximum diameter of 3.1 cm 4. Monophasic waveforms seen throughout the bilateral lower extremities. 5. Right ankle brachial index consistent with moderate peripheral arterial disease. Electronically signed by: Twan Madera MD 06/23/2024 10:05 AM [facility]
== END 2024-05-18 10:29 | disposition home or self-care (01) ==
LOC: HO.US 10:28
PROVIDERS: PCP Internal Medicine; Visit Provider Surgery Vascular Surgery
DX: I73.9 Peripheral vascular disease, unspecified (principal); I71.40 Abdominal aortic aneurysm, without rupture, unspecified; I72.3 Aneurysm of iliac artery
CPT/HCPCS: 76706; 93922; 93925

== ENCOUNTER 2024-05-25 00:52 | Emergency (ER) | payer MEDICARE, SELFPAY ==
[2024-05-25] VITALS (7 sets, daily range): BP systolic 105–141; BP diastolic 73–104; PULSE 65–84; RESP 17–20; TEMP 36.7–37.1; O2SAT 97–98; BMI 30.4
--- NOTE | 2024-05-25 01:31 | PC.NURSE ---
pt biba from home, a&ox0. per ems and pt pt has increased ams x30 mins, reports pt has dementia at baseline. pt reports pt has been mumbling . on arrival, pt tearful, stating you are the devil you are going to kill me , pt agitated when touched, pt appears scare. 18G placed in right ac by ems. pt labs obtained, vss. at bedside. elopement band placed for safety of pt.
[2024-05-25 01:36] LABS: MANUAL DIFF FLAG NO
--- NOTE | 2024-05-25 01:37 | PC.NURSE ---
attempted to call pt , immediately went to voicemail.
[2024-05-25 01:43] LABS: Basophils Absolute Auto 0.1 X10*3/uL (0.0-0.2); Basophils Percent Auto 0.8 % (0-2); Eosinophils Absolute Auto 0.5 X10*3/uL (0.0-0.4); Eosinophils Percent Auto 4.7 % (0-4); Hematocrit 36.5 % (42.0-52.0); Hemoglobin 12.1 g/dl (14.0-18.0); Imm Gran Abs Auto 0.09 X10*3/uL (0.00-0.03); Imm Gran Pct Auto 0.9 % (0.0-0.4); Lymphocytes Absolute Auto 1.6 X10*3/uL (1.2-4.9); Lymphocytes Percent Auto 16.6 % (20-40); Mean Corpuscular HGB Conc 33.2 g/dl (31.0-36.0); Mean Corpuscular Hemoglobin 32.5 pg (27.0-33.0); Mean Corpuscular Volume 98.1 fL (80.0-98.0); Mean Platelet Volume 10.6 fL (9.4-12.4); Monocytes Absolute Auto 1.1 X10*3/uL (0.1-1.2); Neutrophils Absolute Auto 6.5 x10*3/uL (2.0-8.3); Platelet Count 204 X10*3/uL (160-400); Red Blood Count 3.72 X10*6/uL (4.60-5.80); Red Cell Distribution Width 12.4 % (11.0-16.0); White Blood Count 9.8 X10*3/uL (4.8-10.8)
--- NOTE | 2024-05-25 01:43 | PC.NURSE ---
pt refused to take PO medications, pt spit out medication at this time.
--- NOTE | 2024-05-25 01:48 | PC.NURSE ---
pt agitated and not allowing medical devices, plan for IM medications.
[2024-05-25 01:57] LABS: Alanine Aminotransferase 13 U/L (0-40); Albumin Level 3.3 g/dL (3.5-5.0); Anion Gap 14 (12-20); Aspartate Amino Transferase 41 U/L (5-37); Bilirubin Total 0.3 mg/dL (0.0-1.0); Blood Urea Nitrogen 25 mg/dL (9-16); Calcium 8.8 mg/dL (8.4-10.2); Carbon Dioxide 26 mmol/L (22-29); Chloride 106 mmol/L (96-108); Creatinine Clr Calc Pharmacy 40.8; Estimated Glomerular Filt Rate 45; Glucose Random 103 mg/dL (60-115); Potassium 5.7 mmol/L (3.3-5.1); Sodium 140 mmol/L (135-145); Total Protein 7.1 g/dL (6.5-8.0)
[2024-05-25] MEDS: OLANZapine 10 MG VIAL 5 MG IM (02:01)
--- NOTE | 2024-05-25 02:05 | PC.NURSE ---
pt medicated per mar, pt agitated and confused unable to get vitals at this time.
[2024-05-25 02:07] LABS: Alkaline Phosphatase 125 U/L (39-117)
--- NOTE | 2024-05-25 02:17 | PC.NURSE ---
pt family at bedside, pt calm at this time,no acute distress noted.
--- NOTE | 2024-05-25 02:39 | PC.NURSE ---
pt at bedside reports pt woke up in the middle of the night screaming. reports he has never done this before but reports he is usually a&ox1, at this time pt is not.
--- NOTE | 2024-05-25 02:56 | PC.NURSE ---
pt family at bedside reports they feel safe taking pt home, plan to get pt ems transport home.
--- NOTE | 2024-05-25 02:59 | ED.AMS ---
HPI - Altered Mental Status General Chief Complaint: Altered Mental Status Stated Complaint: AMS not responding to commands,dementia, [id number] Time Seen by Provider: 05/25/24 01:17 Source: patient, family and EMS Mode of arrival: EMS Limitations: altered mental status History of Present Illness ED Provider: pepe BUSTILLO narrative: Patient's history of significant dementia with frequent agitation on Seroquel, trazodone and memantine patient is brought by EMS as patient's woke up 55 minutes prior to arrival and started screaming that he is seeing devils and worried about it and scared agitated in the ER when he came patient did take his evening medicine Related Data Home Medications ?Medication ?Instructions ?Recorded ?Confirmed trazodone 50 mg tablet 50 mg PO BEDTIME PRN Insomnia 08/20/23 04/25/24 Previous Rx's ?Medication ?Instructions ?Recorded albuterol sulfate 90 mcg/actuation 2 puff inhalation Q6H PRN 03/30/23 aerosol inhaler (ProAir HFA) shortness of breath or wheezing 30 days #1 inhaler clopidogrel 75 mg tablet 75 mg PO DAILY 30 days #30 tabs 03/30/23 melatonin 3 mg tablet 6 mg (2 x 3 mg) PO BEDTIME PRN 03/30/23 Insomnia #60 tabs memantine 5 mg tablet 5 mg PO BID 30 days #60 tabs 03/30/23 quetiapine 100 mg tablet 100 mg PO BEDTIME 30 days #30 tabs 03/30/23 quetiapine 50 mg tablet 50 mg PO DAILY 30 days #30 tabs 03/30/23 atorvastatin 10 mg tablet 10 mg PO BEDTIME 90 days #90 tabs 12/17/23 lisinopril 20 mg tablet 20 mg PO DAILY 90 days #90 tabs 12/17/23 tiotropium bromide 2.5 2 puff inhalation DAILY COPD #4 12/28/23 mcg/actuation mist for inhalation grams (Spiriva Respimat) ipratropium 0.5 mg-albuterol 3 mg 3 ml inhalation Q4-6H PRN wheezing 01/03/24 (2.5 mg base)/3 mL nebulization #180 mL soln apixaban 5 mg tablet 5 mg PO BID 30 days #60 tabs 04/25/24 fluticasone furoate 100 1 ea inhalation DAILY #60 ea 04/28/24 mcg-vilanterol 25 mcg/dose inhalation powder (Breo Ellipta) furosemide 20 mg tablet 20 mg PO QAM edema #30 tabs 04/29/24 cholecalciferol (vitamin D3) 50 50 mcg PO DAILY 90 days #90 caps 05/08/24 mcg (2,000 unit) capsule olanzapine 2.5 mg tablet (Zyprexa) 2.5 mg PO QPM PRN 05/25/24 Agitation/hallucination #30 tabs Allergies Allergy/AdvReac Type Severity Reaction Status Date / Time No Known Allergies Allergy Mild NONE Verified 05/25/24 01:09 cats dogs ragweed dust pollen Allergy Unknown Unknown Uncoded 04/25/24 14:07 Review of Systems Review of Systems: Yes Unobtainable due to mental status PMFSH Past Medical History Medical History Insomnia Pure hypercholesterolemia Essential hypertension Pneumothorax after biopsy Hypoxemia COPD (chronic obstructive pulmonary disease) Pulmonary emphysema Osteopenia Hyperparathyroidism Osteoporosis Vitamin D deficiency Multinodular thyroid Surgical History Hx of prostatectomy Hx of hernia repair Family History Family History Father No problems noted. Mother No problems noted. Social History Social History Household Members: Family Household Members Other:: 2 Housing: House Do you presently have visiting nurse or other home services: Yes Alcohol intake: never Comment: sitter Patient Tobacco Use Status: Former Tobacco user Tobacco use type: Cigarette e-Cigarette/Vaping Use: Never Used Second Hand Smoke Exposure: Yes Advance Directives: Yes Advance Directives on File: Yes Advance Directives Date on File: 02/28/23 service: No Current occupational status: retired Sexual orientation: Straight/Heterosexual Cognitive needs: Yes Hearing needs: No Vision needs: No Physical Exam ED Vital Signs: Vital Signs - 24 hr 05/25/24 01:07 05/25/24 02:16 Temperature 98.8 F Pulse Rate 75 84 Respiratory Rate 20 18 Blood Pressure 105/76 114/76 Pulse Oximetry 98 98 Oxygen Delivery Method Room Air Nasal Cannula Oxygen Flow Rate 3 BMI result Body Mass Index 30.4 Appearance: Alert. Oriented X1-2. No acute distress. Eyes: PERRLA, No Nystagmus ENT: Pharynx normal. Oral Mucosa moist atraumatic normocephalic Neck: Normal inspection. Neck supple. CVS: Normal heart rate and rhythm. Pulses normal. Respiratory: No respiratory distress. Equal air entry bilateral, no wheezing/rales/rhonchi Abdomen: Soft and nontender. Bowel sounds are present, no mass palpable, no CVA tenderness Skin: Skin warm and dry. Normal skin color. Normal skin turgor. Extremities: No lower extremity edema. No calf tenderness Neuro: Oriented X1-2. No motor deficit. No sensory deficit.No cerebellar signs , cranial nerves II-XII intact hallucinating worried about the devil agitated Medications Administered Discontinued Medications Generic Name Dose Route Start Last Admin Trade Name Freq PRN Reason Stop Dose Admin Olanzapine 5 mg 05/25/24 01:32 05/25/24 01:43 Olanzapine 5 Mg Tablet PO 05/25/24 01:33 Not Given ONCE ONE Olanzapine 5 mg 05/25/24 01:45 05/25/24 02:01 Olanzapine 10 Mg Vial IM 05/25/24 01:46 5 mg ONCE ONE Administration Medical Decision Making Medical Decision Making [facility] Narrative: Patient was given Zyprexa 5 mg IM responded to that patient calm and cooperative family's at bedside will like to take the patient home advised to follow up with psychiatrist and the PCP will prescribe Zyprexa 2.5 mg every evening p.r.n. for psychotic behavior Lab Data [facility] Lab Attestation statement: I reviewed the patient's lab results. 05/25/24 01:29 05/25/24 01:29 Labs: Lab Results 05/25/24 Range/Units 01:29 WBC 9.8 (4.8-10.8) X10*3/uL RBC 3.72 L (4.60-5.80) X10*6/uL Hgb 12.1 L (14.0-18.0) g/dl Hct 36.5 L (42.0-52.0) % MCV 98.1 H (80.0-98.0) fL MCH 32.5 (27.0-33.0) pg MCHC 33.2 (31.0-36.0) g/dl RDW 12.4 (11.0-16.0) % Plt Count 204 (160-400) X10*3/uL MPV 10.6 (9.4-12.4) fL Immature Gran % (Auto) 0.9 H (0.0-0.4) % Neut % (Auto) 66.0 (45-73) % Lymph % (Auto) 16.6 L (20-40) % R[place] % (Auto) 11.0 (2-11) % Eos % (Auto) 4.7 H (0-4) % Baso % (Auto) 0.8 (0-2) % Lymph # (Auto) 1.6 (1.2-4.9) X10*3/uL [place] # (Auto) 1.1 (0.1-1.2) X10*3/uL Eos # (Auto) 0.5 H (0.0-0.4) X10*3/uL Baso # (Auto) 0.1 (0.0-0.2) X10*3/uL Abs Immat Gran (auto) 0.09 H (0.00-0.03) X10*3/uL Absolute Neuts (auto) 6.5 (2.0-8.3) x10*3/uL Absolute Nucleated RBC 0.000 (0.0-0.012) X10*3/uL Nucleated RBC % (auto) 0.0 (0.0-0.2) /100WBC Sodium 140 (135-145) mmol/L Potassium 5.7 H D (3.3-5.1) mmol/L Chloride 106 (96-108) mmol/L Carbon Dioxide 26 (22-29) mmol/L Anion Gap 14 (12-20) BUN 25 H (9-16) mg/dL Creatinine 1.50 H (0.5-1.4) mg/dL Estim Creat Clear Calc 40.8 Estimated GFR 45 Random Glucose 103 (60-115) mg/dL Calcium 8.8 (8.4-10.2) mg/dL Total Bilirubin 0.3 (0.0-1.0) mg/dL AST 41 H (5-37) U/L ALT 13 (0-40) U/L Alkaline Phosphatase 125 H (39-117) U/L Total Protein 7.1 (6.5-8.0) g/dL Albumin 3.3 L (3.5-5.0) g/dL Discharge Plan Discharge Clinical Impression: Dementia with psychotic disturbance Patient Disposition: Home, Self-Care Instructions: Dementia (ED), Hallucinations (ED) Additional Instructions: Continue medication as prescribed by your psychiatrist and neurologist You may start taking Zyprexa 2.5 mg every evening as needed for delusion/hallucination Keep the lights on in the evening times Speak to your psychiatrist PCP and neurologist Prescriptions: New olanzapine [Zyprexa] 2.5 mg tablet 2.5 mg PO QPM PRN (Reason: Agitation/hallucination) Qty: 30 0RF No Action Spiriva Respimat 2.5 mcg/actuation mist 2 puff inhalation DAILY Qty: 4 3RF ipratropium-albuterol 0.5 mg-3 mg(2.5 mg base)/3 mL solution for nebulization 3 ml inhalation Q4-6H PRN (Reason: wheezing) Qty: 180 11RF apixaban 5 mg tablet 5 mg PO BID 30 Days Qty: 60 0RF fluticasone furoate-vilanterol [Breo Ellipta] 100-25 mcg/dose blister with device 1 ea inhalation DAILY Qty: 60 5RF furosemide 20 mg tablet 20 mg PO QAM Qty: 30 2RF quetiapine 100 mg Tablet 100 mg PO BEDTIME 30 Days Qty: 30 0RF memantine 5 mg Tablet 5 mg PO BID 30 Days Qty: 60 0RF quetiapine 50 mg Tablet 50 mg PO DAILY 30 Days Qty: 30 0RF melatonin 3 mg Tablet 6 mg PO BEDTIME PRN (Reason: Insomnia) Qty: 60 0RF clopidogrel 75 mg tablet 75 mg PO DAILY 30 Days Qty: 30 0RF albuterol sulfate [ProAir HFA] 90 mcg/actuation HFA aerosol inhaler 2 puff inhalation Q6H PRN (Reason: shortness of breath or wheezing) 30 Days Qty: 1 0RF trazodone 50 mg tablet 50 mg PO BEDTIME PRN (Reason: Insomnia) lisinopril 20 mg tablet 20 mg PO DAILY 90 Days Qty: 90 1RF atorvastatin 10 mg tablet 10 mg PO BEDTIME 90 Days Qty: 90 1RF cholecalciferol (vitamin D3) 50 mcg (2,000 unit) capsule 50 mcg PO DAILY 90 Days Qty: 90 3RF Print Language: Georgian
[2024-05-25 03:37] LABS: Appearance Urine Clear; Color Urine Yellow; Glucose Urine UA Negative (Negative); Leukocyte Esterase Urine Negative (Negative); Nitrite Urine Negative (Negative); PH 6.5 (5.0-9.0); Urine Blood Negative (Negative); Urine Ketones Negative (Negative); Urine Protein Negative (Neg-Trace)
[2024-05-25 03:39] LABS: Bacteria Urine None Seen (None Seen); Hyaline Casts Urine 0-2 /LPF (0-2); RBC Urine 0-2 /HPF (0-2); Squamous Epithelial Cell Urine 0-2 /HPF (0-2); WBC Urine 0-5 /HPF (0-5)
== END 2024-05-25 04:15 | disposition home or self-care (01) ==
PROVIDERS: Emergency Provider Internal Medicine
DX: R41.82 Altered mental status, unspecified (principal); F03.92 Unspecified dementia, unspecified severity, with psychotic disturbance; R45.1 Restlessness and agitation; I10 Essential (primary) hypertension; E78.00 Pure hypercholesterolemia, unspecified; Z87.891 Personal history of nicotine dependence; Z79.02 Long term (current) use of antithrombotics/antiplatelets; Z79.899 Other long term (current) drug therapy
CPT/HCPCS: 36415; 80053; 81001; 85025; 96372; 99284; J2359

== ENCOUNTER 2024-06-12 10:49 | Outpatient (AMB) | payer MEDICARE, SELFPAY ==
--- OUTSIDE RECORDS SUMMARY | 2024-06-12 10:53 | XMS_ITS | Clinical Summary ---
Author Organization Unknown Care Team Providers Care Gravel Inspector Name Role Phone CHANCE FREEMAN, ROSA ISELA Unavailable Unavailable MK PT, OZIEL Unavailable Unavailable COLLIN INSPECTOR WREATH, MARION Unavailable Unavailable JOSE BELLN, CAROLINE Unavailable Unavailable CELIO HICKS, NAOMY Unavailable Unavailab le Payers Payer Name Policy Type Policy Number Effective Date Expira tion Date MEDICARE.NGS.PDGM [id number] Problems Condition Name Condition Details Condition Category Status Onset Date Resolution Date Last Treatment Date Treating Clinician Comments HYPERTENSIVE HEART DISEASE WITH HEART FAILURE Active 08-26 00:00: 00 ACUTE ON CHRONIC DIASTOLIC (CONGESTIVE) HEART FAILURE Active 08-26 00:00: 00 COVID-19 Active 08-26 00:00: 00 PNEUMONIA DUE TO CORONAVIRUS DISEASE 2019 Active 08-26 00:00: 00 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 08-26 00:00: 00 PRESSURE ULCER OF RIGHT HIP, STAGE 2 Active 08-26 00:00: 00 EMPHYSEMA, UNSPECIFIED Active 08-26 00:00: 00 CHRONIC RESPIRATORY FAILURE WITH HYPOXIA Active 08-26 00:00: 00 ATHSCL HEART DISEASE OF [place] CORONARY ARTERY W/O ANG PCTRS Active 08-26 00:00: 00 UNSP DEMENTIA, UNSP SEVERITY, WITHOUT BEH/PSYCH/MO OD/ANX Active 08-26 00:00: 00 SPONDYLOSIS W/O MYELOPATHY OR RADICULOPATH Y, CERVICAL REGION Active 08-26 00:00: 00 UNILATERAL PRIMARY OSTEOARTHRIT IS, RIGHT KNEE Active 08-26 00:00: 00 AGE-RELATED OSTEOPOROSIS W/O CURRENT PATHOLOGICAL FRACTURE Active 08-26 00:00: 00 HYPERPARATHY ROIDISM, UNSPECIFIED Active 08-26 00:00: 00 HYPERLIPIDEM IA, UNSPECIFIED Active 08-26 00:00: 00 HOUSEHOLD COORDINATOR (CURRENT) USE OF ANTITHROMBOT ICS/ANTIPLAT ELETS Active 08-26 00:00: 00 HOUSEHOLD COORDINATOR (CURRENT) USE OF ANTIBIOTICS Active 08-26 00:00: 00 CUSTODIAL (CURRENT) USE OF INHALED STEROIDS Active 08-26 00:00: 00 ACQUIRED ABSENCE OF OTHER GENITAL ORGAN(S) Active 08-26 00:00: 00 PERSONAL HISTORY OF NICOTINE DEPENDENCE Active 08-26 00:00: 00 Allergies, Adverse Reactions, Alerts Allergy Name Allergy Type Status Severity Reaction(s) Onset Date Inactive Date Treating Clinician Comments NO KNOWN ALLERGIES Propensity to adverse reactions Active 08-26 12:22: 32 Medications Ordered Medication Name Filled Medication Name Start Date Stop Date Current Medication? Ordering Clinician Indication Dosage Frequency Signature (SIG) Comments Components cefdinir 300 mg capsule 00:00: 00 08-27 23:59 :00 No [id number] PNEUMONIA 1 capsule 2 TIMES DAILY 1 capsule 2 TIMES DAILY (route: oral) Med Classific ation: Anti-Infe ctive Agents doxycycline monohydrate 100 mg capsule 00:00: 00 08-27 23:59 :00 No [id number] PNEUMONIA 1 capsule 2 TIMES DAILY 1 capsule 2 TIMES DAILY (route: oral) Med Classific ation: Anti-Infe ctive Agents furosemide 20 mg tablet 00:00: 00 Yes [id number] CHF 1 tablet DAILY 1 tablet DAILY (route: oral) Med Classific ation: Cardiovas cular Therapy Agents Spiriva Respimat 2.5 mcg/actuati on solution for inhalation 215 00:00: 00 Yes [id number] COPD 2 puff EVERY DAY IN THE MORNING FOR COPD FOR 30 DAYS 2 puff EVERY DAY IN THE MORNING FOR COPD FOR 30 DAYS (route: inhalation ) Med Classific ation: Respirato ry Therapy Agents clopidogrel 75 mg tablet 2-14 00:00: 00 Yes [id number] PREVENTION OF BLOOD CLOTS 75 mg DAILY 75 mg DAILY (route: oral) Med Classific ation: Hematolog ical Agents Breo Ellipta 100 mcg-25 mcg/dose powder for inhalation 08-26 00:00: 00 Yes [id number] COPD 1 inhalat ion DAILY 1 inhalation DAILY (route: inhalation ) Med Classific ation: Respirato ry Therapy Agents albuterol sulfate HFA 90 mcg/actuati on aerosol inhaler 08-27 00:00: 00 Yes [id number] COUGH/WHEEZ E 2 puff EVERY 6 HOURS 2 puff EVERY 6 HOURS (route: inhalation ) Med Classific ation: Respirato ry Therapy Agents aspirin 81 mg tablet,[place] yed release 08-26 00:00: 00 Yes [id number] HEART DISEASE 1 tablet DAILY 1 tablet DAILY (route: oral) Med Classific ation: Hematolog ical Agents atorvastati n 10 mg tablet 08-26 00:00: 00 Yes [id number] HLD 1 tablet DAILY 1 tablet DAILY (route: oral) Med Classific ation: Cardiovas cular Therapy Agents ipratropium 0.5 mg-albutero l 3 mg (2.5 mg base)/3 mL nebulizatio n soln 08-27 00:00: 00 Yes [id number] DYSPNEA/WHE LARRY 3 mL EVERY 4 HOURS 3 mL EVERY 4 HOURS (route: inhalation ) Med Classific ation: Respirato ry Therapy Agents lisinopril 20 mg tablet 08-26 00:00: 00 Yes [id number] HTN 1 tablet DAILY 1 tablet DAILY (route: oral) Med Classific ation: Cardiovas cular Therapy Agents melatonin 3 mg tablet 08-26 00:00: 00 Yes [id number] SLEEPLESSNE SS 2 tablet BEDTIME 2 tablet BEDTIME (route: oral) Med Classific ation: Central Nervous System Agents memantine 5 mg tablet - 00:00: 00 Yes [id number] DEMENTIA 1 tablet 2 TIMES DAILY 1 tablet 2 TIMES DAILY (route: oral) Med Classific ation: Cognitive Disorder Therapy quetiapine 100 mg tablet 08-26 00:00: 00 Yes [id number] DEMENTIA 1 tablet BEDTIME 1 tablet BEDTIME (route: oral) Med Classific ation: Central Nervous System Agents quetiapine 50 mg tablet 08-26 00:00: 00 Yes [id number] DEMENTIA 1 tablet DAILY 1 tablet DAILY (route: oral) Med Classific ation: Central Nervous System Agents trazodone 50 mg tablet 08-27 00:00: 00 Yes [id number] SLEEPLESSNE SS 1 tablet BEDTIME 1 tablet BEDTIME (route: oral) Med Classific ation: Central Nervous System Agents Vital Signs Vital Name Observation Time Observation Value Commen ts Temperature 2023-09-28 10:38:00.000 97.9 [degF] Temperature 2023-09-21 11:08:00.000 97.9 [degF] Temperature 2023-09-14 13:11:00.000 97.8 [degF] Temperature 2023-09-14 09:21:00.000 97.7 [degF] Temperature 2023-09-10 10:45:00.000 98.1 [degF] Temperature 2023-09-09 10:45:00.000 98 [degF] Temperature 2023-09-07 13:17:00.000 97.9 [degF] Temperature 2023-09-04 06:59:00.000 97.2 [degF] Temperature 2023-08-31 10:57:00.000 97.9 [degF] Temperature 2023-08-31 10:08:00.000 97.9 [degF] Temperature 2023-08-28 08:50:00.000 98 [degF] BMI (%) 2023-08-28 08:27:44.000 24 kg/m2 Height 2023-08-28 08:22:34.000 70 [in_us] Pulse 2023-09-28 10:38:00.000 67 /min Pulse 2023-09-21 11:08:00.000 71 /min Pulse 2023-09-14 13:11:00.000 71 /min Pulse 2023-09-14 09:21:00.000 84 /min Pulse 2023-09-10 10:45:00.000 71 /min Pulse 2023-09-09 10:45:00.000 72 /min Pulse 2023-09-07 13:17:00.000 72 /min Pulse 2023-09-04 06:59:00.000 70 /min Pulse 2023-08-31 10:57:00.000 71 /min Pulse 2023-08-31 10:08:00.000 71 /min Pulse 2023-08-28 08:50:00.000 72 /min O2 Saturation (%) 2023-09-28 10:40:00.000 97 % O2 Saturation (%) 2023-09-21 11:08:00.000 98 % O2 Saturation (%) 2023-09-14 13:11:00.000 96 % O2 Saturation (%) 2023-09-14 09:21:00.000 95 % O2 Saturation (%) 2023-09-10 10:45:00.000 98 % O2 Saturation (%) 2023-09-09 10:45:00.000 96 % O2 Saturation (%) 2023-09-07 13:17:00.000 98 % O2 Saturation (%) 2023-09-04 07:00:00.000 100 % O2 Saturation (%) 2023-08-31 10:57:00.000 94 % O2 Saturation (%) 2023-08-31 10:08:00.000 94 % O2 Saturation (%) 2023-08-28 08:50:00.000 90 % Respirations 2023-09-28 10:38:00.000 17 /min Respirations 2023-09-21 11:08:00.000 18 /min Respirations 2023-09-14 13:11:00.000 18 /min Respirations 2023-09-14 09:21:00.000 18 /min Respirations 2023-09-10 10:45:00.000 16 /min Respirations 2023-09-09 10:45:00.000 18 /min Respirations 2023-09-07 13:17:00.000 18 /min Respirations 2023-09-04 06:59:00.000 18 /min Respirations 2023-08-31 10:57:00.000 17 /min Respirations 2023-08-31 10:08:00.000 17 /min Respirations 2023-08-28 08:50:00.000 18 /min Weight (lbs) 2023-09-28 10:38:00.000 161 [lb_av] Weight (lbs) 2023-09-21 11:09:00.000 162 [lb_av] Weight (lbs) 2023-09-14 09:21:00.000 164.6 [lb_av] Weight (lbs) 2023-09-10 11:00:00.000 165 [lb_av] Weight (lbs) 2023-09-09 10:49:00.000 162 [lb_av] Weight (lbs) 2023-09-07 13:19:00.000 162 [lb_av] Weight (lbs) 2023-08-31 10:57:00.000 162.2 [lb_av] Weight (lbs) 2023-08-31 10:10:00.000 161 [lb_av] Weight (lbs) 2023-08-28 08:27:44.000 173 [lb_av] Systolic Blood Pressure 2023-09-28 10:38:00.000 122 mm [Hg] Systolic Blood Pressure 2023-09-21 11:08:00.000 128 mm [Hg] Systolic Blood Pressure 2023-09-14 13:11:00.000 110 mm [Hg] Systolic Blood Pressure 2023-09-14 09:21:00.000 104 mm [Hg] Systolic Blood Pressure 2023-09-10 10:45:00.000 118 mm [Hg] Systolic Blood Pressure 2023-09-09 10:45:00.000 126 mm [Hg] Systolic Blood Pressure 2023-09-07 13:17:00.000 116 mm [Hg] Systolic Blood Pressure 2023-09-04 06:59:00.000 126 mm [Hg] Systolic Blood Pressure 2023-08-31 10:57:00.000 118 mm [Hg] Systolic Blood Pressure 2023-08-31 10:08:00.000 118 mm [Hg] Systolic Blood Pressure 2023-08-28 08:50:00.000 122 mm [Hg] Diastolic Blood Pressure 2023-09-28 10:38:00.000 78 mm [Hg] Diastolic Blood Pressure 2023-09-21 11:08:00.000 74 mm [Hg] Diastolic Blood Pressure 2023-09-14 13:11:00.000 70 mm [Hg] Diastolic Blood Pressure 2023-09-14 09:21:00.000 58 mm [Hg] Diastolic Blood Pressure 2023-09-10 10:45:00.000 78 mm [Hg] Diastolic Blood Pressure 2023-09-09 10:45:00.000 82 mm [Hg] Diastolic Blood Pressure 2023-09-07 13:17:00.000 68 mm [Hg] Diastolic Blood Pressure 2023-09-04 06:59:00.000 72 mm [Hg] Diastolic Blood Pressure 2023-08-31 10:57:00.000 72 mm [Hg] Diastolic Blood Pressure 2023-08-31 10:08:00.000 72 mm [Hg] Diastolic Blood Pressure 2023-08-28 08:50:00.000 68 mm [Hg] Plan of Treatment Planned Activity Planned Date Details Comments Future Scheduled Test PHYSICAL T HERAPIST TO EVALUATE FOR STRENGTHENING [code = PHYSICAL THERAPIST TO EVALUATE FOR STRENGTHENING ] Future Scheduled Test OCCUPATION AL THERAPIST TO EVALUATE FOR ADL MANAGEMENT [code = OCCUPATIONAL THERAPIST TO EVALUATE FOR ADL MANAGEMENT ] Future Scheduled Test MEDICATION MANAGEMENT; REGISTERED NURSE/LICENSED PRACTICAL NURSE TO REVIEW MEDICATIONS FOR INTERACTIONS, EFFECTIVENESS OF DRUG THERAPY, AND SIGNS/SYMPTOMS OF ADVERSE REACTIONS. MAY INSTRUCT AND REINFORCE MEDICATION TEACHING RELATED TO THE USE OF MEDICATIONS, DOSAGE, FREQUENCY, PURPOSE, SIDE EFFECTS, AND TO REPORT COMPLICATIONS. [code = MEDICATION MANAGEMENT; REGISTERED NURSE/LICENSED PRACTICAL NURSE TO REVIEW MEDICATIONS FOR INTERACTIONS, EFFECTIVENESS OF DRUG THERAPY, AND SIGNS/SYMPTOMS OF ADVERSE REACTIONS. MAY INSTRUCT AND REINFORCE MEDICATION TEACHING RELATED TO THE USE OF MEDICATIONS, DOSAGE, FREQUENCY, PURPOSE, SIDE EFFECTS, AND TO REPORT COMPLICATIONS.] Future Scheduled Test RESPIRATOR Y SYSTEM MANAGEMENT; REGISTERED NURSE TO ASSESS AND TEACH/LICENSED PRACTICAL NURSE TO OBSERVE AND TEACH RELATED TO ALTERED RESPIRATORY STATUS TO MINIMIZE COMPLICATIONS AND REDUCE HOSPITALIZATION. [code = RESPIRATORY SYSTEM MANAGEMENT; REGISTERED NURSE TO ASSESS AND TEACH/LICENSED PRACTICAL NURSE TO OBSERVE AND TEACH RELATED TO ALTERED RESPIRATORY STATUS TO MINIMIZE COMPLICATIONS AND REDUCE HOSPITALIZATION.] Future Scheduled Test OXYGEN THE RAPY; REGISTERED NURSE/LICENSED PRACTICAL NURSE TO INSTRUCT ON OXYGEN MANAGEMENT INCLUDING: ADMINISTRATION AT 3 L/MIN VIA NASAL CANNULA CONTINUOUS, CARE OF EQUIPMENT AND SAFETY. [code = OXYGEN THERAPY; REGISTERED NURSE/LICENSED PRACTICAL NURSE TO INSTRUCT ON OXYGEN MANAGEMENT INCLUDING: ADMINISTRATION AT 3 L/MIN VIA NASAL CANNULA CONTINUOUS, CARE OF EQUIPMENT AND SAFETY.] Future Scheduled Test FALL REDUC TION MANAGEMENT; REGISTERED NURSE TO ASSESS AND TEACH/LICENSED PRACTICAL NURSE TO OBSERVE AND TEACH ON EDUCATION AND INTERVENTION TO IDENTIFY FALL RISK FACTORS SUCH MEDICATIONS THAT MAY CAUSE DIZZINESS, CHRONIC DISEASES, PSYCHOLOGICAL FACTORS, AND EMPOWER/EDUCATE PATIENT/CAREGIVER TO MINIMIZE FALL RISK. [code = FALL REDUCTION MANAGEMENT; REGISTERED NURSE TO ASSESS AND TEACH/LICENSED PRACTICAL NURSE TO OBSERVE AND TEACH ON EDUCATION AND INTERVENTION TO IDENTIFY FALL RISK FACTORS SUCH MEDICATIONS THAT MAY CAUSE DIZZINESS, CHRONIC DISEASES, PSYCHOLOGICAL FACTORS, AND EMPOWER/EDUCATE PATIENT/CAREGIVER TO MINIMIZE FALL RISK.] Future Scheduled Test RN TO OBSE RVE, ASSESS, EVALUATE, AND DEVELOP AN INDIVIDUALIZED PLAN OF CARE. AGENCY MAY ACCEPT ORDERS FROM CONSULTING PHYSICIANS . REGISTERED NURSETO OBSERVE AND ASSESS/LICENSED PRACTICAL NURSE TO OBSERVE FOR RISK FOR FALLS AND INSTRUCT IN FALL PREVENTION, HOME SAFETY, MEDICATION MANAGEMENT, INFECTION PREVENTION, AND NUTRITION MANAGEMENT. REGISTERED NURSE/LICENSED PRACTICAL NURSE MAY PERFORM O2 SATURATION LEVEL ON ADMISSION AND PRN FOR FOR RN TO ASSESS/MANAGER OF PROJECT MANAGEMENT TO OBSERVE PATIENT, WITH NOTIFICATION TO THE PHYSICIAN IF SATURATION IS 90% IN THE ABSENCE OF MORE SPECIFIC PARAMETERS FROM THE PHYSICIAN. AGENCY MAY PERFORM A RESUMPTION OF CARE VISIT FOLLOWING ANY HOSPITAL ADMISSION. REGISTERED NURSE/LICENSED PRACTICAL NURSE TO MONITOR CO-MORBID CONDITIONS LISTED ON THE PLAN OF CARE AND ANY NEW CONDITIONS THAT PRESENT THEMSELVES DURING THIS EPISODE TO IDENTIFY CHANGES AND INTERVENE TO MINIMIZE COMPLICATIONS. [code = RN TO OBSERVE, ASSESS, EVALUATE, AND DEVELOP AN INDIVIDUALIZED PLAN OF CARE. AGENCY MAY ACCEPT ORDERS FROM CONSULTING PHYSICIANS . REGISTERED NURSETO OBSERVE AND ASSESS/LICENSED PRACTICAL NURSE TO OBSERVE FOR RISK FOR FALLS AND INSTRUCT IN FALL PREVENTION, HOME SAFETY, MEDICATION MANAGEMENT, INFECTION PREVENTION, AND NUTRITION MANAGEMENT. REGISTERED NURSE/LICENSED PRACTICAL NURSE MAY PERFORM O2 SATURATION LEVEL ON ADMISSION AND PRN FOR FOR RN TO ASSESS/MANAGER OF PROJECT MANAGEMENT TO OBSERVE PATIENT, WITH NOTIFICATION TO THE PHYSICIAN IF SATURATION IS 90% IN THE ABSENCE OF MORE SPECIFIC PARAMETERS FROM THE PHYSICIAN. AGENCY MAY PERFORM A RESUMPTION OF CARE VISIT FOLLOWING ANY HOSPITAL ADMISSION. REGISTERED NURSE/LICENSED PRACTICAL NURSE TO MONITOR CO-MORBID CONDITIONS LISTED ON THE PLAN OF CARE AND ANY NEW CONDITIONS THAT PRESENT THEMSELVES DURING THIS EPISODE TO IDENTIFY CHANGES AND INTERVENE TO MINIMIZE COMPLICATIONS.] Future Scheduled Test PAIN MANAG EMENT; REGISTERED NURSE TO ASSESS AND TEACH/LICENSED PRACTICAL NURSE TO OBSERVE AND TEACH AND PROVIDE EDUCATION ON PAIN MANAGEMENT TECHNIQUES. [code = PAIN MANAGEMENT; REGISTERED NURSE TO ASSESS AND TEACH/LICENSED PRACTICAL NURSE TO OBSERVE AND TEACH AND PROVIDE EDUCATION ON PAIN MANAGEMENT TECHNIQUES.] Future Scheduled Test REGISTERED NURSE/LICENSED PRACTICAL NURSE TO PERFORM/TEACH PATIENT/CAREGIVER WOUND CARE PRESSURE INJURY TO RIGHT HIP (AREA): IRRIGATE/CLEANSE WITH SALINE APPLY ZINC BASE BARRIER CREAM, COVER WITH BORDERED FOAM DRESSING, CHANGE DRESSING EVERY 3 DAYS AND PRN FOR SOILAGE. CAREGIVER MAY PERFORM WOUND CARE ON NON NURSING DAYS. [code = REGISTERED NURSE/LICENSED PRACTICAL NURSE TO PERFORM/TEACH PATIENT/CAREGIVER WOUND CARE PRESSURE INJURY TO RIGHT HIP (AREA): IRRIGATE/CLEANSE WITH SALINE APPLY ZINC BASE BARRIER CREAM, COVER WITH BORDERED FOAM DRESSING, CHANGE DRESSING EVERY 3 DAYS AND PRN FOR SOILAGE. CAREGIVER MAY PERFORM WOUND CARE ON NON NURSING DAYS. ] Future Scheduled Test RISK FOR H OSPITALIZATION; REGISTERED NURSE TO ASSESS /TEACH, LICENSED PRACTICAL NURSE TO OBSERVE/TEACH PATIENT/CAREGIVER ON RISK FOR HOSPITALIZATION/EMERGENCY ROOM VISITS, TEACH SIGNS AND SYMPTOMS THAT PUT PATIENT AT RISK, WHEN TO NOTIFY NURSE/PHYSICIAN OF COMPLICATIONS/DECLINE, AND WHEN TO CALL 911. [code = RISK FOR HOSPITALIZATION; REGISTERED NURSE TO ASSESS /TEACH, LICENSED PRACTICAL NURSE TO OBSERVE/TEACH PATIENT/CAREGIVER ON RISK FOR HOSPITALIZATION/EMERGENCY ROOM VISITS, TEACH SIGNS AND SYMPTOMS THAT PUT PATIENT AT RISK, WHEN TO NOTIFY NURSE/PHYSICIAN OF COMPLICATIONS/DECLINE, AND WHEN TO CALL 911.] Future Scheduled Test CARDIOVASC ULAR SYSTEM; REGISTERED NURSE TO ASSESS /TEACH, LICENSED PRACTICAL NURSE TO OBSERVE/TEACH RELATED TO ALTERED CARDIOVASCULAR STATUS TO MINIMIZE COMPLICATIONS AND REDUCE HOSPITALIZATION. [code = CARDIOVASCULAR SYSTEM; REGISTERED NURSE TO ASSESS /TEACH, LICENSED PRACTICAL NURSE TO OBSERVE/TEACH RELATED TO ALTERED CARDIOVASCULAR STATUS TO MINIMIZE COMPLICATIONS AND REDUCE HOSPITALIZATION.] Future Scheduled Test HEART FAIL URE; REGISTERED NURSE TO ASSESS /TEACH, LICENSED PRACTICAL NURSE TO OBSERVE/TEACH CARDIOPULMONARY SYSTEM TO IDENTIFY SIGNS OF DECOMPENSATION AND INTERVENE TO MINIMIZE THE SEVERITY OF FLUID OVERLOAD. OBSERVE PATIENT ABILITY TO MONITOR AND RECORD DAILY WEIGHTS AND VITAL SIGNS, INCLUDING PULSE AND BLOOD PRESSURE; RECORD PATIENT REPORTED WEIGHT, OR WEIGH PATIENT NEEDED. REPORT INCREASED EDEMA OR WEIGHT GAIN OF >2 LBS IN 1 DAY OR >5 LBS IN 1 WEEK OR 5LBS OR MORE OVER TARGET WEIGHT. MAY MEASURE ABDOMINAL GIRTH IF UNABLE TO WEIGH. SCALES AND BP MONITOR TO BE PROVIDED IF NEEDED. [code = HEART FAILURE; REGISTERED NURSE TO ASSESS /TEACH, LICENSED PRACTICAL NURSE TO OBSERVE/TEACH CARDIOPULMONARY SYSTEM TO IDENTIFY SIGNS OF DECOMPENSATION AND INTERVENE TO MINIMIZE THE SEVERITY OF FLUID OVERLOAD. OBSERVE PATIENT ABILITY TO MONITOR AND RECORD DAILY WEIGHTS AND VITAL SIGNS, INCLUDING PULSE AND BLOOD PRESSURE; RECORD PATIENT REPORTED WEIGHT, OR WEIGH PATIENT NEEDED. REPORT INCREASED EDEMA OR WEIGHT GAIN OF >2 LBS IN 1 DAY OR >5 LBS IN 1 WEEK OR 5LBS OR MORE OVER TARGET WEIGHT. MAY MEASURE ABDOMINAL GIRTH IF UNABLE TO WEIGH. SCALES AND BP MONITOR TO BE PROVIDED IF NEEDED.] Future Scheduled Test COVID-19 P OSITIVE/SYMPTOMATIC MANAGEMENT; REGISTERED NURSE TO ASSESS AND TEACH/LICENSED PRACTICAL NURSE TO OBSERVE AND TEACH SIGNS OF COVID-19 AND PROVIDE EARLY INTERVENTIONS TO MINIMIZE RISK OF HOSPITALIZATION. [code = COVID-19 POSITIVE/SYMPTOMATIC MANAGEMENT; REGISTERED NURSE TO ASSESS AND TEACH/LICENSED PRACTICAL NURSE TO OBSERVE AND TEACH SIGNS OF COVID-19 AND PROVIDE EARLY INTERVENTIONS TO MINIMIZE RISK OF HOSPITALIZATION.] Future Scheduled Test AGENCY MAY PERFORM A RESUMPTION OF CARE VISIT FOLLOWING ANY HOSPITAL ADMISSION. PHYSICAL THERAPY TO EVALUATE, ASSESS AND MONITOR, PROVIDE SKILLED THERAPEUTIC INTERVENTION, ACTIVITY, EDUCATION, AND TRAINING TO ADDRESS: TRANSFER TRAINING (PT) GAIT TRAINING (PT) NEUROMUSCULAR RE-EDUCATION / BALANCE RETRAINING (PT) THERAPEUTIC EXERCISES (PT) STAIR TRAINING (PT) ANTICOAGULANT THERAPY - PHYSICAL THERAPY OXYGEN SATURATION (PT). NOTIFY MD IF 02SATS BELOW 90% AFTER 10 MIN OF REST. PHYSICAL THERAPY TO OBSERVE WOUND/INCISION AND/OR INTACT DRESSING ON RIGHT GREATER TROCHANTER AND REPORT EARLY SIGNS AND SYMPTOMS OF WOUND DETERIORATION, COMPLICATIONS, OR INFECTION TO RN CLINICAL ENGINE SERVICE REPAIRER AND/OR PHYSICIAN. HEART FAILURE SELF-MANAGEMENT ( PT) IDENTIFY FALL RISK FACTORS AND ESTABLISH HOME EXERCISE PROGRAM TO MINIMIZE FALL RISK. MAY TEACH THE PATIENT FLOOR RECOVERY WHEN CLINICALLY APPROPRIATE (PT) [code = AGENCY MAY PERFORM A RESUMPTION OF CARE VISIT FOLLOWING ANY HOSPITAL ADMISSION. PHYSICAL THERAPY TO EVALUATE, ASSESS AND MONITOR, PROVIDE SKILLED THERAPEUTIC INTERVENTION, ACTIVITY, EDUCATION, AND TRAINING TO ADDRESS: TRANSFER TRAINING (PT) GAIT TRAINING (PT) NEUROMUSCULAR RE-EDUCATION / BALANCE RETRAINING (PT) THERAPEUTIC EXERCISES (PT) STAIR TRAINING (PT) ANTICOAGULANT THERAPY - PHYSICAL THERAPY OXYGEN SATURATION (PT). NOTIFY MD IF 02SATS BELOW 90% AFTER 10 MIN OF REST. PHYSICAL THERAPY TO OBSERVE WOUND/INCISION AND/OR INTACT DRESSING ON RIGHT GREATER TROCHANTER AND REPORT EARLY SIGNS AND SYMPTOMS OF WOUND DETERIORATION, COMPLICATIONS, OR INFECTION TO RN CLINICAL ENGINE SERVICE REPAIRER AND/OR PHYSICIAN. HEART FAILURE SELF-MANAGEMENT ( PT) IDENTIFY FALL RISK FACTORS AND ESTABLISH HOME EXERCISE PROGRAM TO MINIMIZE FALL RISK. MAY TEACH THE PATIENT FLOOR RECOVERY WHEN CLINICALLY APPROPRIATE (PT)] Goal 2023-10-05 Patient Goal - TO BREATHE EA SIER Goal Provider Goal - Goal Provider Goal - Goal Provider Goal - PATIENT/CAREGIVER TO VERBALIZE, AND CONSISTENTLY DEMONSTRATE EFFECTIVE, SAFE MANAGEMENT OF MEDICATION INCLUDING KNOWLEDGE OF EFFECTIVENESS, POTENTIAL SIDE EFFECTS AND DRUG REACTIONS AND WHEN TO CONTACT THE APPROPRIATE CARE PROVIDER. PATIENT/CAREGIVER WILL BE ABLE TO VERBALIZE UNDERSTANDING OF MEDICATION REGIMEN AND ACCURATELY TAKE MEDICATIONS PRESCRIBED WITHOUT ADVERSE EFFECTS BY EOE Goal Provider Goal - PATIENT / CAREGIVER WILL VERBALIZE/DEMONSTRATE UNDERSTANDING OF MEASURES TO MANAGE ALTERED RESPIRATORY STATUS BY END OF EPISODE. Goal Provider Goal - PATIENT/CAREGIVER WILL VERBALIZE/DEMONSTRATE UNDERSTANDING OF CARE AND MANAGEMENT OF OXYGEN THERAPY BY END OF EPISODE Goal Provider Goal - PATIENT/CAREGIVER ABLE TO IDENTIFY FALL RISK FACTORS AND IMPLEMENT STRATEGIES TO MINIMIZE FALL RISK. PATIENT/CAREGIVER WILL VERBALIZE/DEMONSTRATE AN ABILITY TO ADHERE TO FALL REDUCTION SELF MANAGEMENT AND LIFE-STYLE CHANGES AT DISCHARGE. PERSONAL GOAL(S) STATED BY PATIENT/CAREGIVER WILL BE MET BY EOE. Goal Provider Goal - A PLAN OF CARE WILL BE ESTABLISHED THAT MEETS THE PATIENTS NEEDS. PATIENT WILL DEMONSTRATE OXYGEN SATURATION WITHIN NORMAL LIMITS OR PATIENTS OPTIMAL LEVEL ESTABLISHED BY THE PHYSICIAN THROUGHOUT CARE. CHANGES TO CO-MORBID CONDITIONS AND ANY NEW CONDITIONS WILL BE IDENTIFIED AND REPORTED TO THE PHYSICIAN. Goal Provider Goal - PATIENT / CAREGIVER WILL VERBALIZE / DEMONSTRATE UNDERSTANDING OF PAIN CONTROL MEASURES BY EOE Goal Provider Goal - PT GOAL: PATIENT / CAREGIVER WILL VERBALIZE / DEMONSTRATE ABILITY TO PERFORM WOUND CARE. WOUND STATUS WILL IMPROVE EVIDENCED BY A DECREASE IN SIZE, DRAINAGE, ABSENCE OF INFECTION, AND DECREASED PAIN BY END OF EPISODE. Goal Provider Goal - PATIENT/CAREGIVER WILL VERBALIZE UNDERSTANDING OF SIGNS AND SYMPTOMS THAT PUT THE PATIENT AT RISK FOR HOSPITALIZATION /EMERGENCY ROOM VISITS, WHEN TO NOTIFY NURSE/PHYSICIAN OF COMPLICATIONS/DECLINE AND WHEN TO CALL 911. Goal Provider Goal - PATIENT / CAREGIVER WILL VERBALIZE/DEMONSTRATE UNDERSTANDING OF MEASURES TO MANAGE ALTERED CARDIOVASCULAR STATUS BY EOE. Goal Provider Goal - PATIENT / CAREGIVER WILL VERBALIZE/DEMONSTRATE AN ABILITY TO ADHERE TO SELF-MANAGEMENT OF HF TO MINIMIZE COMPLICATIONS AND AVOID HOSPITALIZATION BY END OF EPISODE. Goal Provider Goal - PATIENT / CAREGIVER WILL VERBALIZED/DEMONSTRATED AN ABILITY TO ADHERE TO COVID-19 SELF-MANAGEMENT TO MINIMIZE COMPLICATIONS AND AVOID HOSPITALIZATION BY END OF EPISODE. Goal Provider Goal - PT STG: PATIENT WILL DEMONSTRATE IMPROVED TRANSFERS FROM CGA TO INDEPENDENT WITH UE ASSIST WITHIN 4 WEEKS PT STG: PATIENT WILL DEMONSTRATE ADEQUATE STEP LENGTH, FOOT CLEARANCE AND CONSISTENT HEEL STRIKE BILATERALLY TO IMPROVE GAIT PATTERN WITHIN 4 WEEKS PT LTG: PATIENT WILL DEMONSTRATE IMPROVED AMBULATION FROM MIN ASSIST TO INDEPENDENT WITH LRAD WITHIN 9 WEEKS PT LTG: PATIENT WILL DEMONSTRATE REDUCED FALL RISK EVIDENCED BY IMPROVED SELF- SELECTED WALKING SPEED (SSWS CUT SCORE 0.6 TO 0.9 INDICATES MODERATE FALL RISK, 0.6 M/S INDICATES HIGH FALL RISK) FROM 0.7M/SEC TO 1.0M/SEC WITHIN 9 WEEKS PT LTG: PATIENT WILL DEMONSTRATE REDUCED FALL RISK EVIDENCED BY TUG TEST (CUT SCORE >11 SECONDS INDICATES INCREASED FALL RISK) IMPROVING FROM 22 SECONDS TO 12 SECONDS WITHIN 9 WEEKS PT LTG: PATIENT WILL DEMONSTRATE REDUCED FALL RISK EVIDENCED BY DUAL TASK TUG TEST (CUT SCORE >11 SECONDS INDICATES INCREASED FALL RISK) IMPROVING FROM 30 SECONDS TO 12 SECONDS WITHIN 9 WEEKS PT STG: PATIENT WILL DEMONSTRATE INDEPENDENCE WITH LOWER EXTREMITY HOME EXERCISE PROGRAM WITHIN 4 WEEKS PT LTG: PATIENT WILL DEMONSTRATE INCREASED STRENGTH OF BILATERAL LES FROM 3+/5 TO 4/5 WITHIN 9 WEEKS IN ORDER TO IMPROVE SAFETY AND STABILITY WITH GAIT AND STAIRS PT LTG: PATIENT WILL DEMONSTRATE IMPROVED ABILITY TO SAFELY NEGOTIATE STAIRS FROM MIN ASSIST TO SUP WITH ROLLATOR WITHIN 9 WEEKS PT GOAL: PATIENT WILL NOT EXHIBIT SIGNS AND SYMPTOMS OF ANTICOAGULANT TOXICITY. PATIENT WILL MAINTAIN OXYGEN SATURATION WITHIN PHYSICIAN ORDERED PARAMETERS THROUGHOUT EPISODE OF CARE THE PATIENT WILL NOT DEMONSTRATE ANY WOUND COMPLICATIONS DURING THE EPISODE OF CARE. PT GOAL: PATIENT/CAREGIVER WILL BE ABLE TO IDENTIFY SIGNS OF EXACERBATION OF HEART FAILURE AND WILL VERBALIZE/DEMONSTRATE AN ABILITY TO ADHERE TO HEART FAILURE SELF-MANAGEMENT AND LIFE-STYLE CHANGES BY END OF EPISODE. PATIENT/CAREGIVER WILL DEMONSTRATE ADHERENCE TO FALL REDUCTION SELF MANAGEMENT TO MINIMIZE FALL BY END OF EPISODE. Reason for Visit MODERATE ASSIST WITH TRANSFER/AMBULATION/ADLS Encounters Start Date/Time End Date/Time Encounter Type Admission Type Attending [facility] Facility Care Department Encounter ID Discharge Date Discharge Status Discharge Condition Discharge Reason Percent Goals Met 2023-08-27 00:00:00 2023-10-05 00:00:00 Outpatient NEW ADMISSION [facility] [id number] 2023-10-05 00:00:00 DISCHARGE TO HOME OR SELF CARE MODERATE ASSIST WITH TRANSFER/A MBULATION/ [facility] HH ONLY - OTHER (PROVIDE DETAILS IN COORD NOTE) 41.38
--- OUTSIDE RECORDS SUMMARY | 2024-06-12 10:53 | XMS_ITS | Patient Health Record ---
Author Organization [facility] Address [address] [address] Care Team Providers Care Director Of Pediatric Rehabilitation Name Role Phone Howard Harvey MDneth Primary Care Provider Chester Velasco Unavailable [phone] Allergies Allergen (clinical drug ingredient) Drug/Non Drug Allergy documented on EMR Reaction Allergy Type Onset Date Status Cat dander Cat Dander Unknown Allergy Active Dog dander Dog Dander Unknown Allergy Active Dust Mites Unknown Allergy Active Ragweed Unknown Allergy Active Reason For Referral No Information Medications Medication SIG (Take, Route, Frequency, Duration) Notes Start Date End Date Status Advil PRN Active ALPRAZolam Active Clopidogrel Bisulfate 75 MG 1 tablet Orally Active Aspir-81 Active Lisinopril 20 MG 1 tablet Orally Once a day Active Inhaler Decongestant Active Vitamin D 1000 UNIT 1 tablet Orally Once a day Active Simvastatin Active Immunizations Vaccine Route Administration Date Status Comme nts COVID-19 Moderna Vaccine Unknown 04/28/2021 Administered 1st 08/02/2020 2nd 08/30/2020 Influenza Unknown 04/15/2022 Administered Social History Tobacco Use: Social History Observation Description Date Details (start date - stop date) Former Smoker NA - NA Tobacco Use/Smoking Question Answer Notes Are you a: former smoker Additional Findings: Tobacco User Modera te cigarette smoker (10-19 cigs/day) Additional Findings: Tobacco Non-User Current no n-smoker,Ex-cigarette smoker Alcohol Screen Question Answer Notes Did you have a drink containing alcohol in the p ast year? No Points 0 Interpretation Negative Tobacco use other than smoking: Question Answer Notes Are you an other tobacco user? No Problems Problem Type SNOMED Code ICD Code Onset Dates Problem Status W/U Status Risk Notes Problem Unspecified atherosclerosis of [place] arteries of extremities, bilateral legs (I70.203) Active confirmed Problem Localized, primary osteoarthritis of the ankle and/or foot (923068285) Primary osteoarthritis, 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 confirmed Problem Localized, primary osteoarthritis of the ankle and/or foot (375115623) Primary osteoarthritis, left 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) Active confirmed Vital Signs Blood pressure diastolic 77 mm Hg 02/23/2024 Height 5 ft 9 in in 02/23/2024 Blood pressure systolic 120 mm Hg 02/23/2024 Weight 170 lbs 02/23/2024 BMI 25.10 kg/m2 02/23/2024 Encounters Encounter Location Date Provider Diagnosis [facility] [address] [place] [address] 02/23/2024 Chester Valentin Other viral warts B0 7.8 ; Pain in left foot M79.672 ; Pain in right foot M79.671 ; Tinea unguium B35.1 ; Pain in right toe(s) M79.674 ; Pain in left toe(s) M79.675 and Unspecified atherosclerosis of [place] arteries of extremities, bilateral legs I70.203 Assessments Encounter Date Diagnosis (ICD Code) Assessment Notes Treatment Notes Treatment Clinical Notes Section Notes 02/23/2024 Other viral warts (ICD-10 - B07.8) 02/23/2024 Pain in left foot (ICD-10 - M79.672) 02/23/2024 Pain in right foot (ICD-10 - M79.671) 02/23/2024 Tinea unguium (ICD-10 - B35.1) 02/23/2024 Pain in right toe(s) (ICD-10 - M79.674) 02/23/2024 Pain in left toe(s) (ICD-10 - M79.675) 02/23/2024 Unspecified atherosclerosis of [place] arteries of extremities, bilateral legs (ICD-10 - I70.203) Plan Of Treatment Pending Test Test Name Order Date X ray : Foot, left 3V 04/15/2022 66099-WLEPRGS NAIL, 1-5 07/04/2018 75115-OHQERST NAIL, 1-5 03/28/2018 96651-Irwg Destruction, 1-14 03/28/2018 44358-Rxyv Destruction, 1-14 01/05/2018 60752-Vnew Destruction, 1-14 02/07/2018 83540-Nzzv Destruction, 1-14 07/04/2018 62382-NVOS SKIN LESIONS, 2 TO 4 12/13/19 19 66094-XAAV SKIN LESIONS, 2 TO 4 11/03/19 23 06147-DWVP SKIN LESIONS, 2 TO 4 07/04/19 19 50809-XFIB SKIN LESIONS, 2 TO 4 01/06/20 18 68077-QSJM SKIN LESIONS, 2 TO 4 03/28/20 18 Q7803-IKGGVACF DYSTROPHIC NAILS ANY # E2090-XKERZQTF DYSTROPHIC NAILS ANY # W4019-HFLYQHAS DYSTROPHIC NAILS ANY # Q3966-AGMLXFLF DYSTROPHIC NAILS ANY # 47276- Nail Unit Biopsy 01/05/2018 Insurance Providers Payer Name Payer Address Payer Phone Subscriber Number Group Number Insured Name Patient Relationship to Insured Coverage Start Date Coverage End Date Medicare National Govt [facility] [address] [place] [address] [id number] Kvng De La Torre i Self - patient is the insured AARP Secondary to Medicare [address] [place] [address] [id number] Kvng De La Torre i Self - patient is the insured Medical (General) History Medical History History ICD Code Anxiety Arthritis Back,Hip,and Knee pain CAD (Cholesterol) Cancer High blood pressure Poor circulation Stroke Vascular phlebitis (clots) Measles Mumps Chicken pox Hx of Prostate cancer -24 COPD Emphysema Warts Surgical History Surgery Date(Month/Year) prostate cancer 1994 upper teeth removed 10/2019 Hospitalization History Reason Date(Month/Year) C-ER breathing issuses exams done inha lers- few hrs 06/2022
--- OUTSIDE RECORDS SUMMARY | 2024-06-12 10:53 | XMS_ITS ---
Author Organization [facility] Address [address] [place] [address] Care Team Providers Care Product Engineer Name Role Phone Wes FREEMAN, [place] Primary Care Provider UnaChester Beltran [phone] REASON FOR VISIT SD Reschedule/Cancel Encounters Encounter Location Date Provider Diagnosis [facility] [address] [place] [address] 05/03/2023 Chester Valentin Plan Of Treatment No Information Progress Notes * Kvng LEYVADOB:1940 (82 yo M)Acc No.[id number]:05/03/2023 Patient:?Kvng Leyva :1940???Age:82 Y???Sex:Male Address:[address] [place] [address] * true * Date:? Generated for Printi ng/Fabharathg/eTransmitting on:?06/12/2024 10:53 AM EST
--- OUTSIDE RECORDS SUMMARY | 2024-06-12 10:53 | XMS_ITS ---
Author Organization [facility] [place] Address [address] [facility] [place] [address] Care Team Providers Care Aerial Tram Operator Name Role Phone Wes FREEMAN, [place] Primary Care Provider Chester Velasco Unavailable [phone] Allergies Allergen (clinical drug ingredient) Drug/Non Drug Allergy documented on EMR Reaction Allergy Type Onset Date Status Cat dander Cat Dander Unknown Allergy Active Dog dander Dog Dander Unknown Allergy Active Dust Mites Unknown Allergy Active Ragweed Unknown Allergy Active REASON FOR VISIT Painful nail(s) aggrevated by shoes and causing difficulty standing/walking., Wart(s), Foot pain Medications Medication SIG (Take, Route, Frequency, Duration) Notes Start Date End Date Status Advil PRN Active ALPRAZolam Active Clopidogrel Bisulfate 75 MG 1 tablet Orally Active Aspir-81 Active Inhaler Decongestant Active Lisinopril 20 MG 1 tablet Orally Once a day Active Vitamin D 1000 UNIT 1 tablet Orally Once a day Active Simvastatin Active Social History Tobacco Use: Social History Observation [...] Are you an other tobacco user? No Vital Signs Height 5 ft 9 in in 02/23/2024 Weight 170 lbs 02/23/2024 BMI 25.10 kg/m2 02/23/2024 Blood pressure systolic 120 mm Hg 02/23/20 24 Blood pressure diastolic 77 mm Hg 024 Encounters Encounter Location Date Provider Diagnosis [facility] [address] [place] [address] 02/23/2024 Chester Valentin Other viral warts B0 7.8 ; Pain in left foot M79.672 ; Pain in right foot M79.671 ; Tinea unguium B35.1 ; Pain in right toe(s) M79.674 ; Pain in left toe(s) M79.675 and Unspecified atherosclerosis of [place] arteries of extremities, bilateral legs I70.203 Assessments [...] (ICD-10 - M79.675) 02/23/2024 Unspecified atherosclerosis of ey[place] arteries of extremities, bilateral legs (ICD-10 - I70.203) Plan Of Treatment Next Appt Details Follow Up: prn, Reason: Procedure Notes * Category Sub-Category Detail Notes Wart Treatment Procedure Verrucae(s) were debrided to pin-point bleeding with sterile surgical blade, silver nitrate chemocautery applied, recomm. Wartstick 40% Salicylic acid application under occlusion as directed Debride Nail 6-10 Nail debridement Nail debridem ent performed extensively to reduce/remove overall nail length and girth, subungual debris, and necrotic tissue, by manual and electrical means with use of a nail nipper and/or dremel, to more viable healthy nail plate or bed tissue 6-10. Silver nitrate used for any petechial bleeding as necessary. Patient chooses, no pharmaceutical tx (51821) Keratoma Treatment Parring or Cutting o f Benign Hyperkeratotic Lesion(s) 10188 (2-4 Lesions) - The Benign hyperkeratotic lesions, as described above were pared, and/or cut utilizing a sterile #15 blade, tissue nippers, and/or dremel, Q8 Progress Notes * Kvng LEYVA JDOB:1940 (83 yo M)Acc No.[id number]:02/23/2024 Progress Note Patient:?Kvng Leyva Provider:?Chester Valentin DPM :1940???Age:83 Y???Sex:Male Francis e:02/23/2024 Address:[address] [place] [address] , [facility] Pcp:Alex Harvey MD Subjective: * Chief Complaints: * ??? Painful nail(s) aggrevat ed by shoes and causing difficulty standing/walking.Wart(s)Foot pain * HPI: ???Painful Nails:?Pt States Last PCP Visit:?Date:?01/31/2024 * ROS:?General/Constitutional:?Nausea?denies.?Vomiting?denies.?Hunger Thirst?denies.?Loss appetite?denies.?Chills?denies.?Fatigue?denies.?Fever?denies.?Night Sweats?denies.?Unexplained weight loss?denies.?Unexplained weight gain?denies.?HEENTM:?Dentures?denies.?Dizziness?denies.?Glasses/contacts?denies.?Retinopathy?de nies.?Blurred/double vision?denies.?TMJ?denies.?Discharge/drainage?denies.?Implants?denies.?Sore throat?denies.?Dental implants?denies.?Hard of hearing ?denies.?Difficulty chewing/swallowing/speaking?denies.?Nose bleeds?denies.?Sore mouth?denies.?Respiratory:?On Oxygen?denies.?Pneumonia/pleurisy?denies.?Bronchitis?denies.?Emphysema?admits.?C oughing?denies.?Cough blood?denies.?Shortness of breath?denies.?Wheezing?denies.?Cardiovascular:?Pacemaker?denies.?MVP?denies.?WPW?denies.?CHF?denies.?Heart attack?denies.?Septal defect?denies.?Rapid beat?denies.?Chest pain ?denies.?Atrial Fib.?denies.?Murmur/Palpitations?denies.?Gastrointestinal:?Hemorrhoids?denies.?Stomach/Abdominal pain?denies.?Dark blood stool?denies.?Irritable bowel ?denies.?Constipation?denies.?Diarrhea?denies.?Hematology:?Swelling?denies.?Clots?denies.?Varicose Veins?denies.?Bruising?denies.?Bleeding problem?denies.?Genitourinary:?Blood urine?denies.?Frequent/Painfu/urination/bladder control?denies.?Kidney stones?denies.?Infection (UTI)?denies.?Nephropathy?denies.?sex trans dis (STD)?denies.?Prostate?denies.?Musculoskeletal:?Hammertoes?denies.?Bunions?denies.?Back Pain?denies.?Muscle Cramps/ Resting?denies.?Muscle cramps / walking?denies.?Generalized aches and pains?denies.?Weakness?denies.?Integ.:?Diaz?denies.?Scars?denies.?Corns/calluses?denies.?Ingrown nails?denies.?Painful nails?denies.?Open Sores?denies.?Rashes?denies.?Neurologic:?Difficulty sleeping?denies.?Brain disorder?denies.?Numbness?denies.?Balance trouble?denies.?Confusion?denies.?Fainting/blackouts?denies.?Tingling?denies.?Tr emors?denies.? * Medical History:? * Surgical History:?prostate c ancer 1994upper teeth removed 10/2019 * Hospitalization/Major Diagno stic Procedure:?C-ER breathing issuses exams done inhalers- few hrs 06/2022 * Family History:?Mother: dece ased, foot problems.?Father: , diagnosed with Diabetic - NIDDM.? * Social History:?Tobacco Use:?Tobacco Use/Smoking?Are you a:?former smoker ?Additional Findings: Tobacco User?Moderate cigarette smoker (10-19 cigs/day) ?Additional Findings: Tobacco Non-User?Current non-smoker,Ex-cigarette smoker ?Tobacco use other than smoking?Are you an other tobacco user??No ???Drugs/Alcohol:?Drugs?Have you used drugs other than those for medical reasons in the past 12 months??No ?Alcohol Screen?Did you have a drink containing alcohol in the past year??No ?Points?0 ?Interpretation?Negative ???Miscellaneous:?Caffeine: yes, frequency:, 1-2 cups per day. ?Children: yes, 3. ?no Exercise. ?Marital status: . ?Occupation: Retired, Bi[employer] y. * Medications:?TakingEdgardo N otes: PRNALPRAZolam Aspir-81 Clopidogrel Bisulfate 75 MG Tablet 1 tablet Orally Inhaler Decongestant Lisinopril 20 MG Tablet 1 tablet Orally Once a daySimvastatin Vitamin D 1000 UNIT Tablet 1 tablet Orally Once a dayMedication List reviewed and reconciled with the patientTaking Edgardo , Notes: PRNTaking ALPRAZolam Taking Aspir-81 Taking Clopidogrel Bisulfate 75 MG Tablet 1 tablet Orally Taking Inhaler Decongestant Taking Lisinopril 20 MG Tablet 1 tablet Orally Once a dayTaking Simvastatin Taking Vitamin D 1000 UNIT Tablet 1 tablet Orally Once a dayMedication List reviewed and reconciled with the patient * Allergies:?Dust MitesCat Luiz derDog DanderRagweedyes[Allergies Verified] Objective: * Vitals:?Ht: 5 ft 9 in, Wt:17 0, BMI:25.10, Shoe size:10D, BP:120/77 mm Hg. * Examination: ???General Examination: ?GENERAL APPEARANCE:?pleasant, alert, well nourished, well developed, well hydrated, with good attention to hygene/body habitus, and in no acute distress.?ORIENTED:?person,place, and time.?Neurological: ?SENSORY:?neurological exam reveals intact sensorium, pain sensation normal, vibration sensation intact, pinprick sensation is normal in the lower extremities, anesthesia, burning, tingling, B/L; pop left metatarsals -2-4.?Vascular: ?DP PULSES:? 0/4, B/L.?PT PULSES:? 0/4, B/L.?EDEMA:? 2/4, Left foot with ecchymosis.?Dermatologic: ?SKIN FINDINGS:? Skin exam reveals Keratotic lesion(s) located at, Plantar, T5, T7, TA , Plantar, Heel(s), B/L .?VERRUCA:? reveals Multiple ( _1-right ff and 1 left ff__ ), multi- loculated , mosaic, round, raised, flat-topped, petechial bleeding papulae(s), with cauliflower appearance and interrruption of skin lines, with pain to lateral compression, and size estimated at __2-4__ mm diameter , plantar Forefoot, B/L.?Orthopedic: ?MUSCLE STRENGTH:?5/5 all groups in a symmetrical fashion , B/L.?Nails: ?NAILS are:?Elongated, overgrown, dystrophic, lytic, greater than 3mm thick, discolored and friable with crumbly malodorous subungual debris, with pain on palpation, 1-5 B/L.? Assessment: * Assessment: 1.?Other viral warts - B07.8 ?2.?Pain in left foot - M79.672?3.?Pain in right foot - M79.671?4.?Tinea unguium - B35.1 (Primary)?5.?Pain in right toe(s) - M79.674?6.?Pain in left toe(s) - M79.675?7.?Unspecified atherosclerosis of [place] arteries of extremities, bilateral legs - I70.203? Plan: * Treatment: * Procedures:?Debride Nail 6-10:?Nail debridement?Nail debridement performed extensively to reduce/remove overall nail length and girth, subungual debris, and necrotic tissue, by manual and electrical means with use of a nail nipper and/or dremel, to more viable healthy nail plate or bed tissue 6-10. Silver nitrate used for any petechial bleeding as necessary. Patient chooses, no pharmaceutical tx (10567).?Keratoma Treatment:?Parring or Cutting of Benign Hyperkeratotic Lesion(s)?70462 (2-4 Lesions) - The Benign hyperkeratotic lesions, as described above were pared, and/or cut utilizing a sterile #15 blade, tissue nippers, and/or dremel, Q8.?Wart Treatment:?Procedure?Verrucae(s) were debrided to pin-point bleeding with sterile surgical blade, silver nitrate chemocautery applied, recomm. Wartstick 40% Salicylic acid application under occlusion as directed.? * Procedure Codes:?58390 DEBRI DE NAIL, 6 OR MORE, Modifiers: XS 97063 Wart Destruction, 1-14, Modifiers: XS 64160 TRIM SKIN LESIONS, 2 TO 4, Modifiers: Q8 * Follow Up:?prn * Images: * Sign off status: Completed true * Provider:Cristal Valentin DPM Date:? 024 Generated for Erica butler/Zainab/eTransmitting on:?06/12/2024 10:52 AM EST History and Physical Notes * HPI (History of Present Illness) Category Sub-Category Detail Notes Category Not es Painful Nails Pt States Last PCP Visit: Date:: 01/31/2024 Examination Category Sub-Category Detail Notes Category Not es Neurological SENSORY: neurological exa m reveals intact sensorium, pain sensation normal, vibration sensation intact, pinprick sensation is normal in the lower extremities, anesthesia, burning, tingling, B/L; pop left metatarsals -2-4 Dermatologic SKIN FINDINGS: Skin exam reveal s Keratotic lesion(s) located at, Plantar, T5, T7, TA , Plantar, Heel(s), B/L VERRUCA: reveals Multiple ( _ 1-right ff and 1 left ff__ ), multi-loculated , mosaic, round, raised, flat-topped, petechial bleeding papulae(s), with cauliflower appearance and interrruption of skin lines, with pain to lateral compression, and size estimated at __2-4__ mm diameter , plantar Forefoot, B/L Orthopedic MUSCLE STRENGTH: 5/5 all groups in a symm etrical fashion , B/L General Examination GENERAL APPEARANCE: pleasant , alert, well nourished, well developed, well hydrated, with good attention to hygene/body habitus, and in no acute distress ORIENTED: person,place, and ti me Vascular DP PULSES(B): 0/4, B/L PT PULSES(B): 0/4, B/L EDEMA(C): 2/4, Left foot with ecchymosis Nails NAILS are: Elongated, overg rown, dystrophic, lytic, greater than 3mm thick, discolored and friable with crumbly malodorous subungual debris, with pain on palpation, 1-5 B/L
--- OUTSIDE RECORDS SUMMARY | 2024-06-12 10:53 | XMS_ITS ---
Author Organization [facility] Address [address] [place] [address] Care Team Providers Care Director [employer] Name Role Phone Wes FREEMAN, Lefor Primary Care Provider Chester Velasco Unavailable [phone] REASON FOR VISIT Painful nail(s) aggrevated by shoes and causing difficulty standing/walking., Wart(s), Foot pain Encounters Encounter Location Date Provider Diagnosis [facility] [address] [place] [address] 05/03/2023 Chester Valentin Other viral warts B0 7.8 ; Pain in left foot M79.672 ; Pain in right foot M79.671 ; Tinea unguium B35.1 ; Pain in right toe(s) M79.674 ; Pain in left toe(s) M79.675 and Unspecified atherosclerosis of [place] arteries of extremities, bilateral legs I70.203 Assessments Encounter Date Diagnosis (ICD Code) Assessment Notes Treatment Notes Treatment Clinical Notes Section Notes 05/03/2023 Other viral warts (ICD-10 - B07.8) 05/03/2023 Pain in left foot (ICD-10 - M79.672) 05/03/2023 Pain in right foot (ICD-10 - M79.671) 05/03/2023 Tinea unguium (ICD-10 - B35.1) 05/03/2023 Pain in right toe(s) (ICD-10 - M79.674) 05/03/2023 Pain in left toe(s) (ICD-10 - M79.675) 05/03/2023 Unspecified atherosclerosis of [place] arteries of extremities, bilateral legs (ICD-10 - I70.203) Plan Of Treatment Next Appt Details Follow Up: 3 Months, Reason: Procedure Notes * Category Sub-Category Detail [...] as necessary. Patient chooses, no pharmaceutical tx (96153) Keratoma Treatment Parring or Cutting o f Benign Hyperkeratotic Lesion(s) 08317 (2-4 Lesions) - The Benign hyperkeratotic lesions, as described above were pared, and/or cut utilizing a sterile #15 blade, tissue nippers, and/or dremel, Q8 Progress Notes * Kvng LEYVADOB:1940 (83 yo M)Acc No.[id number]:05/03/2023 Progress Note Patient:?Kvng LEYVA Provider:?Chester Valentin DPM :1940???Age:82 Y???Sex:Male Francis e:05/03/2023 Address:[address] [place], [place] [address] Pcp:Alex Harvey MD Subjective: * Chief Complaints: * ???1. Painful nail(s) aggrev ated by shoes and causing difficulty standing/walking.. 2. Wart(s). 3. Foot pain. * HPI: ???Painful Nails:?Pt States Last PCP Visit:?Date:?01/29/2023 ???Skin problems:?Nature:?swelling, redness.?Location:?Left , Forefoot, Midfoot, Heel/Rearfoot.?Duration:?several weeks.?Onset/Cause:?unknown.?Course:?improved.?Aggravated by:?no aggrevating factors.?Treatments:?[facility] ER and two week course of oral abx and f/u with PCP.?Severity/Quality:?07/07.? * ROS:?General/Constitutional:?Nausea?denies.?Vomiting?denies.?Hunger Thirst?denies.?Loss appetite?denies.?Chills?denies.?Fatigue?denies.?Fever?denies.?Night Sweats?denies.?Unexplained weight loss?denies.?Unexplained weight gain?denies.?HEENTM:?Dentures?denies.?Dizziness?denies.?Glasses/contacts?denies.?Retinopathy?de nies.?Blurred/double vision?denies.?TMJ?denies.?Discharge/drainage?denies.?Implants?denies.?Sore throat?denies.?Dental implants?denies.?Hard of hearing ?denies.?Difficulty chewing/swallowing/speaking?denies.?Nose bleeds?denies.?Sore mouth?denies.?Respiratory:?On Oxygen?denies.?Pneumonia/pleurisy?denies.?Bronchitis?denies.?Emphysema?admits.?C oughing?denies.?Cough blood?denies.?Shortness of breath?denies.?Wheezing?denies.?Cardiovascular:?Pacemaker?denies.?MVP?denies.?WPW?denies.?CHF?denies.?Heart attack?denies.?Septal defect?denies.?Rapid beat?denies.?Chest pain ?denies.?Atrial Fib.?denies.?Murmur/Palpitations?denies.?Gastrointestinal:?Hemorrhoids?denies.?Stomach/Abdominal pain?denies.?Dark blood stool?denies.?Irritable bowel ?denies.?Constipation?denies.?Diarrhea?denies.?Hematology:?Swelling?denies.?Clots?denies.?Varicose Veins?denies.?Bruising?denies.?Bleeding problem?denies.?Genitourinary:?Blood urine?denies.?Frequent/Painfu/urination/bladder control?denies.?Kidney stones?denies.?Infection (UTI)?denies.?Nephropathy?denies.?sex trans dis (STD)?denies.?Prostate?denies.?Musculoskeletal:?Hammertoes?denies.?Bunions?denies.?Back Pain?denies.?Muscle Cramps/ Resting?denies.?Muscle cramps / walking?denies.?Generalized aches and pains?denies.?Weakness?denies.?Integ.:?Diaz?denies.?Scars?denies.?Corns/calluses?denies.?Ingrown nails?denies.?Painful nails?denies.?Open Sores?denies.?Rashes?denies.?Neurologic:?Difficulty sleeping?denies.?Brain disorder?denies.?Numbness?denies.?Balance trouble?denies.?Confusion?denies.?Fainting/blackouts?denies.?Tingling?denies.?Tr emors?denies.? * Medical History:? Objective: * Vitals:? * Examination: ???General Examination: ?GENERAL APPEARANCE:?pleasant, alert, well nourished, well developed, well hydrated, with good attention to hygene/body habitus, and in no acute distress.?ORIENTED:?person,place, and time.?Neurological: ?SENSORY:?neurological exam reveals intact sensorium, pain sensation normal, vibration sensation intact, pinprick sensation is normal in the lower extremities, anesthesia, burning, tingling, B/L; pop left metatarsals -2-4.?Vascular: ?DP PULSES(B):? 0/4, B/L.?PT PULSES(B):? 0/4, B/L.?EDEMA(C):? 2/4, Left foot with ecchymosis.?Dermatologic: ?SKIN FINDINGS:? [...] * Assessment: 1.?Other viral warts - B07.8 ???2.?Pain in left foot - M79.672???3.?Pain in right foot - M79.671???4.?Tinea unguium - B35.1 (Primary)???5.?Pain in right toe(s) - M79.674???6.?Pain in left toe(s) - M79.675???7.?Unspecified atherosclerosis of [place] arteries of extremities, bilateral legs - I70.203??? Plan: * Treatment: * Procedures:?Debride Nail 6-10:?Nail debridement?Nail debridement performed extensively to reduce/remove overall nail length and girth, subungual debris, and necrotic tissue, by manual and electrical means with use of a nail nipper and/or dremel, to more viable healthy nail plate or bed tissue 6-10. Silver nitrate used for any petechial bleeding as necessary. Patient chooses, no pharmaceutical tx (50956).?Keratoma Treatment:?Parring or Cutting of Benign Hyperkeratotic Lesion(s)?95588 (2-4 Lesions) - The Benign hyperkeratotic lesions, as described above were pared, and/or cut utilizing a sterile #15 blade, tissue nippers, and/or dremel, Q8.?Wart Treatment:?Procedure?Verrucae(s) were debrided to pin-point bleeding with sterile surgical blade, silver nitrate chemocautery applied, recomm. Wartstick 40% Salicylic acid application under occlusion as directed.? * Procedure Codes:?84381 DEBRI DE NAIL, 6 OR MORE, Modifiers: XS , 17192 Wart Destruction, 1-14, Modifiers: XS , 67739 TRIM SKIN LESIONS, 2 TO 4, Modifiers: Q8 * Follow Up:?3 Months * Images: * The named appointment provid er may or may not be the originator of this progress note, and it is not deemed complete until electronically signed by the appointment provider. Sign off status: Pending * Provider:?Chester Valentin DPM Date:? 023 Generated for Erica butler/Zainab/Charuitting on:?06/12/2024 10:53 AM EST History and Physical Notes * HPI (History of Present Illness) Category Sub-Category Detail Notes Category Not es Painful Nails Pt States Last PCP Visit: Date:: 01/29/2023 Skin problems Nature: swelling, redness Location: Left , Forefoot, Mid foot, Heel/Rearfoot Duration: several weeks Onset/Cause: unknown Course: improved Aggravated by: no aggrevating facto rs Treatments: [facility] ER and two week course of oral abx and f/u with PCP Severity/Quality: 07/07 Examination Category Sub-Category Detail Notes Category Not [...]
--- NOTE | 2024-06-12 11:02 | A.OFFVIS_ITS ---
Vital Signs 06/12/24 11:03 Height 5 ft 10 in Weight 170 lb 13.732 oz BMI 24.5 BP 122/70 Blood Pressure Location Lt brachial Position Sitting Pulse 60 Pulse Source Pulse Oximeter Pulse Oximetry (%) 98 Oxygen Delivery Method Nasal Cannula Oxygen Flow Rate 3 Intake Visit Reasons: Emphysema Intake Note: pt is here for follow up and states the cold weather is not good for his breathing. 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: No Allergies No Known Allergies Allergy (Mild, Verified 06/12/24 11:20) NONE cats dogs ragweed dust pollen Allergy (Unknown, Uncoded 06/12/24 11:20) Unknown Medication List - Last Reconciled 06/12/24 by Cedric Sarabia MD albuterol sulfate 90 mcg/actuation (ProAir HFA) 2 puffs inhalation Q6H PRN 30 days apixaban 5 mg PO BID 30 days atorvastatin 10 mg PO BEDTIME 90 days cholecalciferol (vitamin D3) 50 mcg PO DAILY 90 days clopidogrel 75 mg PO DAILY 30 days fluticasone furoate-vilanterol 100-25 mcg/dose (Breo Ellipta) 1 ea inhalation DAILY furosemide 20 mg PO QAM ipratropium-albuterol 0.5 mg-3 mg(2.5 mg base)/3 mL 3 mL inhalation Q4-6H PRN lisinopril 20 mg PO DAILY 90 days melatonin 6 mg (2 x 3 mg) PO BEDTIME PRN memantine 5 mg PO BID 30 days olanzapine (Zyprexa) 2.5 mg PO QPM PRN quetiapine 100 mg PO BEDTIME 30 days quetiapine 50 mg PO DAILY 30 days tiotropium bromide 2.5 mcg/actuation (Spiriva Respimat) 2 puffs inhalation DAILY trazodone 50 mg PO BEDTIME PRN Do you need a note to return to daycare/school/sports/work: No HPI HPI Emphysema: Details: 83 YEARS OLD GENTLEMAN IS HERE FOR ROUTINE FOLLOW-UP. HIS BREATHING STATUS HAS REMAINED FAIRLY STABLE BUT HE CONTINUES TO USE HIS INHALERS REGULARLY. HE DOES USE O2 2 L/MINUTE AT REST AND 3 L/MINUTE WHEN HE WALKS AROUND. HE DOES USE O2 AT NIGHT ALSO. BECAUSE OF THE COLD WEATHER HE IS STAYING MOSTLY IN THE HOUSE. THERE IS SLIGHT INCREASE IN HIS COUGH AND SHORTNESS OF BREATH DURING THE WINTER MONTHS. USES HIS INHALERS INCLUDING BREO, SPIRIVA RESPIMAT REGULARLY, AND IPRATROPIUM- ALBUTEROL IN THE UPDRAFT ONLY NEEDED. HE HAS HAD NO ACUTE EXACERBATION IN THE LAST 4 MONTHS. [facility] Medical History Insomnia Pure hypercholesterolemia Essential hypertension Pneumothorax after biopsy Hypoxemia COPD (chronic obstructive pulmonary disease) Pulmonary emphysema Osteopenia Hyperparathyroidism Osteoporosis Vitamin D deficiency Multinodular thyroid Surgical History Hx of prostatectomy Hx of hernia repair Family History Father No problems noted. Mother No problems noted. Social History Household Members: Family Household Members Other:: 2 Housing: House Do you presently have visiting nurse or other home services: Yes Alcohol intake: never Comment: sitter Patient Tobacco Use Status: Former Tobacco user Tobacco use type: Cigarette e-Cigarette/Vaping Use: Never Used Second Hand Smoke Exposure: Yes Advance Directives Date on File: 02/28/23 service: No Current occupational status: retired Sexual orientation: Straight/Heterosexual Cognitive needs: Yes Hearing needs: No Vision needs: No Review of Systems Const All systems reviewed & are unremarkable except as noted in HPI and below Reports weakness (MINIMAL RESIDUAL WEAKNESS OF THE LEFT UPPER EXTREMITY) Eyes Reports no additional complaints ENT Reports no additional complaints Card Denies chest pain, Denies irregular heart rhythm, Denies leg edema and Reports dyspnea on exertion (MILD) Resp Reports as per HPI and Reports dyspnea on exertion (MILD) GI Reports no additional complaints Reports no additional complaints Musc Reports abnormal gait (HE USES WALKER,) and Reports back pain Skin/Breast Reports rash (HE HAS HAD NONSPECIFIC ERYTHEMATOUS RASH ON HIS BACK ) Neuro Reports abnormal gait (HE USES WALKER,) and Reports weakness (MINIMAL RESIDUAL WEAKNESS OF THE LEFT UPPER EXTREMITY) Psych Reports anxiety (MILD, HAS TO USE ALPRAZOLAM ONCE IN A WHILE) Endo Reports no additional complaints Isidoro/Lymph Reports no additional complaints Aller/Immun Reports no additional complaints Physical Exam Vital Signs: Last Vital Signs Pulse 60 06/12/24 11:03 BP 122/70 06/12/24 11:03 Pulse Ox 98 06/12/24 11:03 Oxygen Delivery Method Nasal Cannula 06/12/24 11:03 Oxygen Flow Rate 3 06/12/24 11:03 BMI result Body Mass Index 24.5 Const General: comfortable, no acute distress, alert and awake Orientation/consciousness: patient oriented x3 HEENT Head: Yes normal to inspection General nose exam: No nasal polyps present and No nasal discharge present Face and sinus: Yes sinuses nontender Mouth: oropharynx normal Throat: Yes posterior oropharynx normal Eyes General: appearance normal, both eyes and all related structures Neck Neck: Yes normal visual inspection, Yes no lymphadenopathy, Yes trachea midline and Yes no JVD Thyroid: Thyroid normal Chest Chest palpation & inspection: normal inspection of the chest, normal palpation of entire chest wall and no tenderness Resp Other: PERCUSSION NOTE IS HYPER-RESONANT, BREATH SOUNDS ARE DISTANT WITH PROLONGED EXPIRATORY PHASE BUT EQUAL ON BOTH SIDES. NO AUDIBLE WHEEZES OR CREPITATIONS. Cardio Palpation: normal PMI Rate: regular rate Rhythm: regular rhythm Heart sounds: no gallops and no murmurs GI Palpation (GI): Soft to palpation, nontender, No hepatosplenomegaly present and no masses Auscultation: normal bowel sounds Back/Spine/Pelvis Thoracic/Lumbar Spine: thoracic and lumbar spine normal to inspection and thoraco-lumbar ROM limited Skin General skin exam: no rashes or lesions noted and other (HE HAS MULTIPLE ERYTHEMATOUS DISC I ADDED AREAS ON THE WHOLE BACK) Neuro General: patient oriented x3, No gait normal (GAIT IMPAIRED DUE TO BACK PAIN, AND HE USES WALKER) and no focal motor deficits Cranial nerves: Yes CN's II-XII intact bilaterally Extrem General: Yes normal to inspection, Yes no clubbing, cyanosis or edema and Yes no calf tenderness Psych Appearance: grossly normal and well kempt Speech and movement: Normal speech and movement present Office Procedures 6 Minute Walk Time:: 11:21 SPO2 % at rest: 95 Pulse at rest: 66 SPO2 % during excercise: 87 Pulse during excercise: 98 SPO2 % after excercise: 96 Pulse after excercise: 88 Juanita Score: 7 Performance Observations:: Patient walked on level ground using a walker...After 40 yards O2 saturation dropped to 87% with noticeable shortness of breath. Stopped to rest and O2 applied via nasal cannula at 2L with minimal effect..3L applied and O2 saturation returned to 95%. Patient completed the walk slowly maintaining O2 saturation of 94-95%. Patient did benefit from the use of supplemental oxygen. 76679 - 6 Minute Walk Results Reviewed Results Reviewed: O2 SAT., AT REST, ON ROOM AIR 93 DESATURATES QUICKLY ON WALKING. NEEDS O2 2 L/MINUTE AT REST AND 3 L/MINUTE WHEN WALKING Assessment & Plan Assessment & Plan (1) COPD (chronic obstructive pulmonary disease): Comment: He does have rather severe degree of obstructive airway disorder. Was treated for an acute exacerbation in February 2023 and in 2023 . Now he has remained relatively stable . He has had no recurrent respiratory infections since the July 2023 Code(s): J44.9 - Chronic obstructive pulmonary disease, unspecified Category: Medical Qualifiers: COPD type: emphysema Emphysema type: unspecified Qualified Code(s): J43.9 - Emphysema, unspecified Plan: Continue Breo . 100-25 1 inhalation daily Spiriva Respimat. 2 inhalations daily Ipratropium-albuterol solution in the nebulizer Q 4-6 hours p.r.n. for respiratory distress. (2) Chronic respiratory failure with hypoxia: Comment: Patient has chronic hypoxemia. Had 6 minutes walk test today, and confirmed that he does need O2 2 L/minute at rest and 3 L/minute when walking Code(s): J96.11 - Chronic respiratory failure with hypoxia Category: Medical Plan: Instructed to keep on using O2 2 L/minute at rest and during sleep. Use O2 3 L/minute with the portable cylinder, when walking or going outdoors. Orders: Orders AMB 6 minute walk Today J43.9 - Emphysema, unspecified, R09.02 - Hypoxemia Coding Level of Care Code Est Pt Level 3 (07696) Diagnoses Pulmonary emphysema, unspecified emphysema type J43.9 COPD type: emphysema Emphysema type: unspecified Chronic respiratory failure with hypoxia J96.11 CPT Codes Coding ([id number])
[2024-06-12 11:03] VITALS: BP 122/70; PULSE 60; O2SAT 98; BMI 24.5
[2024-06-12 11:42] VITALS: PULSE 66; O2SAT 95
== END 2024-06-12 11:35 | disposition home or self-care (01) ==
PROVIDERS: Visit Provider Internal Medicine
DX: J43.9 Emphysema, unspecified (principal); J96.11 Chronic respiratory failure with hypoxia
CPT/HCPCS: 94618; 99213

== ENCOUNTER → 2024-06-12 10:49 | Outpatient (BNVA) | payer MEDICARE, SELFPAY | PROVIDERS: Visit Provider Internal Medicine | DX: J43.9 Emphysema, unspecified (principal); J96.11 Chronic respiratory failure with hypoxia; Z99.81 Dependence on supplemental oxygen; Z79.899 Other long term (current) drug therapy | CPT/HCPCS: 94618; 99212 ==

== ENCOUNTER 2024-06-13 13:48 | Outpatient (AMB) | payer MEDICARE, SELFPAY ==
--- OUTSIDE RECORDS SUMMARY | 2024-06-13 13:50 | XMS_ITS ---
Author Organization [facility] [place] Address [address] [place] [place] [address] Care Team Providers Care Metal Model Builder Name Role Phone Wes FREEMAN, Thayne Primary Care Provider Chester Velasco Unavailable [phone] Allergies Allergen (clinical drug ingredient) Drug/Non Drug [...] 024 Encounters Encounter Location Date Provider Diagnosis [facility] [address] [place] [address] 02/23/2024 Chester Valentin Other viral warts B0 7.8 ; Pain in left foot M79.672 ; Pain in right foot M79.671 ; Tinea unguium B35.1 ; Pain in right toe(s) M79.674 ; Pain in left toe(s) M79.675 and Unspecified atherosclerosis of [place] arteries of extremities, bilateral legs I70.203 Assessments [...] (ICD-10 - M79.675) 02/23/2024 Unspecified atherosclerosis of [place] arteries of extremities, bilateral legs (ICD-10 - [...] as necessary. Patient chooses, no pharmaceutical tx (50339) Keratoma Treatment Parring or Cutting o f Benign Hyperkeratotic Lesion(s) 05432 (2-4 Lesions) - The Benign hyperkeratotic lesions, as described above were pared, and/or cut utilizing a sterile #15 blade, tissue nippers, and/or dremel, Q8 Progress Notes * Kvng LEYVA JDOB:1940 (83 yo M)Acc No.[id number]:02/23/2024 Progress Note Patient:?Kvng Leyva Provider:?Chester Valentin DPM :1940???Age:83 Y???Sex:Male Francis e:02/23/2024 Address:[address] [place] [address] , [facility] Pcp:Alex Harvey MD Subjective: * Chief Complaints: [...] in left toe(s) - M79.675?7.?Unspecified atherosclerosis of [place] arteries of extremities, bilateral legs - I70.203? [...] as necessary. Patient chooses, no pharmaceutical tx (46931).?Keratoma Treatment:?Parring or Cutting of Benign Hyperkeratotic Lesion(s)?45486 (2-4 Lesions) - The Benign hyperkeratotic lesions, as described above were pared, and/or cut utilizing a sterile #15 blade, tissue nippers, and/or dremel, Q8.?Wart Treatment:?Procedure?Verrucae(s) were debrided to pin-point bleeding with sterile surgical blade, silver nitrate chemocautery applied, recomm. Wartstick 40% Salicylic acid application under occlusion as directed.? * Procedure Codes:?90602 DEBRI DE NAIL, 6 OR MORE, Modifiers: XS 22442 Wart Destruction, 1-14, Modifiers: XS 41827 TRIM SKIN LESIONS, 2 TO 4, Modifiers: Q8 * Follow Up:?prn * Images: * Sign off status: Completed true * Provider:Cristal Valentin DPM Date:? 024 Generated for Erica butler/Zainab/eTransmitting on:?06/13/2024 01:50 PM EST History and Physical Notes * HPI [...]
--- OUTSIDE RECORDS SUMMARY | 2024-06-13 13:50 | XMS_ITS ---
Author Organization [facility] Address [address] [place] [address] Care Team Providers Care Health Plan Specialist Name Role Phone Wes FREEMAN, [place] Primary Care Provider Chester Velasco Unavailable [phone] REASON FOR VISIT Painful nail(s) aggrevated by shoes and causing difficulty standing/walking., Wart(s), Foot pain Encounters Encounter Location Date Provider Diagnosis [facility] [address] [place] [address] 05/03/2023 Chester Valentin Other viral warts B0 7.8 ; Pain in left foot M79.672 ; Pain in right foot M79.671 ; Tinea unguium B35.1 ; Pain in right toe(s) M79.674 ; Pain in left toe(s) M79.675 and Unspecified atherosclerosis of [place] arteries of extremities, bilateral legs I70.203 Assessments [...] (ICD-10 - M79.675) 05/03/2023 Unspecified atherosclerosis of [place] arteries of extremities, bilateral legs (ICD-10 - [...] as necessary. Patient chooses, no pharmaceutical tx (44797) Keratoma Treatment Parring or Cutting o f Benign Hyperkeratotic Lesion(s) 95347 (2-4 Lesions) - The Benign hyperkeratotic lesions, as described above were pared, and/or cut utilizing a sterile #15 blade, tissue nippers, and/or dremel, Q8 Progress Notes * Kvng LEYVADOB:1940 (83 yo M)Acc No.[id number]:05/03/2023 Progress Note Patient:?Kvng LEYVA Provider:?Chester Valentin DPM :1940???Age:82 Y???Sex:Male Francis e:05/03/2023 Address:[address] [place], [place] [address] Pcp:Alex Harvey MD Subjective: * Chief Complaints: [...] in left toe(s) - M79.675???7.?Unspecified atherosclerosis of [place] arteries of extremities, bilateral legs - I70.203??? [...] as necessary. Patient chooses, no pharmaceutical tx (39465).?Keratoma Treatment:?Parring or Cutting of Benign Hyperkeratotic Lesion(s)?42588 (2-4 Lesions) - The Benign hyperkeratotic lesions, as described above were pared, and/or cut utilizing a sterile #15 blade, tissue nippers, and/or dremel, Q8.?Wart Treatment:?Procedure?Verrucae(s) were debrided to pin-point bleeding with sterile surgical blade, silver nitrate chemocautery applied, recomm. Wartstick 40% Salicylic acid application under occlusion as directed.? * Procedure Codes:?44068 DEBRI DE NAIL, 6 OR MORE, Modifiers: XS , 49583 Wart Destruction, 1-14, Modifiers: XS , 60532 TRIM SKIN LESIONS, 2 TO 4, Modifiers: Q8 * Follow Up:?3 Months * Images: * The named appointment provid er may or may not be the originator of this progress note, and it is not deemed complete until electronically signed by the appointment provider. Sign off status: Pending * Provider:?Chester Valentin DPM Date:? 023 Generated for Erica butler/Zainab/Charuitting on:?06/13/2024 01:50 PM EST History and Physical Notes * HPI (History of Present Illness) Category Sub-Category Detail Notes Category Not es Painful Nails Pt States Last PCP Visit: Date:: 01/29/2023 Skin problems Nature: swelling, redness Location: Left , Forefoot, Mid foot, Heel/Rearfoot Duration: several weeks Onset/Cause: unknown Course: improved Aggravated by: no aggrevating facto rs Treatments: [facility] ER and two week course of oral [...]
--- OUTSIDE RECORDS SUMMARY | 2024-06-13 13:51 | XMS_ITS | Clinical Summary ---
Author Organization Unknown Care Team Providers Care Advertising Traffic Manager Name Role Phone CHANCE FREEMAN, ROSA ISELA Unavailable Unavailable MK PT, OZIEL Unavailable Unavailable COLLIN METER TESTER, MARION Unavailable Unavailable JOSE BELLN, CAROLINE Unavailable Unavailable CELIO HICKS, NAOMY Unavailable Unavailab le Payers Payer Name Policy Type Policy Number Effective Date Expira tion Date MEDICARE.NGS.PDGM [id number] Problems Condition Name Condition Details Condition Category [...] 08-26 00:00: 00 ATHSCL HEART DISEASE OF [place] CORONARY ARTERY W/O ANG PCTRS Active 08-26 [...] HYPERLIPIDEM IA, UNSPECIFIED Active 08-26 00:00: 00 WASTE MANAGEMENT RECYCLING TECHNICIAN (CURRENT) USE OF ANTITHROMBOT ICS/ANTIPLAT ELETS Active 08-26 00:00: 00 WASTE MANAGEMENT RECYCLING TECHNICIAN (CURRENT) USE OF ANTIBIOTICS Active 08-26 00:00: 00 MCFP (CURRENT) USE OF INHALED STEROIDS Active 08-26 [...] capsule 00:00: 00 08-27 23:59 :00 No [id number] PNEUMONIA 1 capsule 2 TIMES DAILY 1 capsule 2 TIMES DAILY (route: oral) Med Classific ation: Anti-Infe ctive Agents doxycycline monohydrate 100 mg capsule 00:00: 00 08-27 23:59 :00 No [id number] PNEUMONIA 1 capsule 2 TIMES DAILY 1 capsule 2 TIMES DAILY (route: oral) Med Classific ation: Anti-Infe ctive Agents furosemide 20 mg tablet 00:00: 00 Yes [id number] CHF 1 tablet DAILY 1 tablet DAILY (route: oral) Med Classific ation: Cardiovas cular Therapy Agents Spiriva Respimat 2.5 mcg/actuati on solution for inhalation 215 00:00: 00 Yes [id number] COPD 2 puff EVERY DAY IN THE MORNING FOR COPD FOR 30 DAYS 2 puff EVERY DAY IN THE MORNING FOR COPD FOR 30 DAYS (route: inhalation ) Med Classific ation: Respirato ry Therapy Agents clopidogrel 75 mg tablet 2-14 00:00: 00 Yes [id number] PREVENTION OF BLOOD CLOTS 75 mg DAILY 75 mg DAILY (route: oral) Med Classific ation: Hematolog ical Agents Breo Ellipta 100 mcg-25 mcg/dose powder for inhalation 08-26 00:00: 00 Yes [id number] COPD 1 inhalat ion DAILY 1 inhalation DAILY (route: inhalation ) Med Classific ation: Respirato ry Therapy Agents albuterol sulfate HFA 90 mcg/actuati on aerosol inhaler 08-27 00:00: 00 Yes [id number] COUGH/WHEEZ E 2 puff EVERY 6 HOURS 2 puff EVERY 6 HOURS (route: inhalation ) Med Classific ation: Respirato ry Therapy Agents aspirin 81 mg tablet,[place] yed release 08-26 00:00: 00 Yes [id number] HEART DISEASE 1 tablet DAILY 1 tablet DAILY (route: oral) Med Classific ation: Hematolog ical Agents atorvastati n 10 mg tablet 08-26 00:00: 00 Yes [id number] HLD 1 tablet DAILY 1 tablet DAILY (route: oral) Med Classific ation: Cardiovas cular Therapy Agents ipratropium 0.5 mg-albutero l 3 mg (2.5 mg base)/3 mL nebulizatio n soln 08-27 00:00: 00 Yes [id number] DYSPNEA/WHE LARRY 3 mL EVERY 4 HOURS 3 mL EVERY 4 HOURS (route: inhalation ) Med Classific ation: Respirato ry Therapy Agents lisinopril 20 mg tablet 08-26 00:00: 00 Yes [id number] HTN 1 tablet DAILY 1 tablet DAILY (route: oral) Med Classific ation: Cardiovas cular Therapy Agents melatonin 3 mg tablet 08-26 00:00: 00 Yes [id number] SLEEPLESSNE SS 2 tablet BEDTIME 2 tablet BEDTIME (route: oral) Med Classific ation: Central Nervous System Agents memantine 5 mg tablet - 00:00: 00 Yes [id number] DEMENTIA 1 tablet 2 TIMES DAILY 1 tablet 2 TIMES DAILY (route: oral) Med Classific ation: Cognitive Disorder Therapy quetiapine 100 mg tablet 08-26 00:00: 00 Yes [id number] DEMENTIA 1 tablet BEDTIME 1 tablet BEDTIME (route: oral) Med Classific ation: Central Nervous System Agents quetiapine 50 mg tablet 08-26 00:00: 00 Yes [id number] DEMENTIA 1 tablet DAILY 1 tablet DAILY (route: oral) Med Classific ation: Central Nervous System Agents trazodone 50 mg tablet 08-27 00:00: 00 Yes [id number] SLEEPLESSNE SS 1 tablet BEDTIME 1 tablet [...] ADMISSION AND PRN FOR FOR RN TO ASSESS/CLOTH BLEACHING RANGE OPERATOR CHIEF TO OBSERVE PATIENT, WITH NOTIFICATION TO THE [...] ADMISSION AND PRN FOR FOR RN TO ASSESS/CLOTH BLEACHING RANGE OPERATOR CHIEF TO OBSERVE PATIENT, WITH NOTIFICATION TO THE [...] DETERIORATION, COMPLICATIONS, OR INFECTION TO RN CLINICAL JELLY MAKER AND/OR PHYSICIAN. HEART FAILURE SELF-MANAGEMENT ( PT) [...] DETERIORATION, COMPLICATIONS, OR INFECTION TO RN CLINICAL JELLY MAKER AND/OR PHYSICIAN. HEART FAILURE SELF-MANAGEMENT ( PT) [...] 2023-10-05 00:00:00 Outpatient NEW ADMISSION NAOMY [facility]ICK[facility] [id number] 2023-10-05 00:00:00 DISCHARGE TO HOME OR SELF CARE MODERATE ASSIST WITH TRANSFER/A MBULATION/ [facility] ONLY - OTHER (PROVIDE DETAILS IN COORD NOTE) 41.38
--- OUTSIDE RECORDS SUMMARY | 2024-06-13 13:51 | XMS_ITS | Patient Health Record ---
Author Organization [facility] Address [address] [place] [address] Care Team Providers Care Nanoscience Technician Name Role Phone Howard Harvey MDneth Primary Care Provider Chester Velasco Unavailable [phone] Allergies Allergen (clinical drug ingredient) Drug/Non Drug [...] Status Risk Notes Problem Unspecified atherosclerosis of [place] arteries of extremities, bilateral legs (I70.203) Active confirmed Problem Localized, primary osteoarthritis of the ankle and/or foot (602754890) Primary osteoarthritis, 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 confirmed Problem Localized, primary osteoarthritis of the ankle and/or foot (023246193) Primary osteoarthritis, left 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) Active confirmed Vital Signs Blood pressure diastolic 77 mm Hg 02/23/2024 Height 5 ft 9 in in 02/23/2024 Blood pressure systolic 120 mm Hg 02/23/2024 Weight 170 lbs 02/23/2024 BMI 25.10 kg/m2 02/23/2024 Encounters Encounter Location Date Provider Diagnosis [facility] [place] [address] [place] [address] 02/23/2024 Chester Valentin Other viral warts B0 7.8 ; Pain in left foot M79.672 ; Pain in right foot M79.671 ; Tinea unguium B35.1 ; Pain in right toe(s) M79.674 ; Pain in left toe(s) M79.675 and Unspecified atherosclerosis of wiyot arteries of extremities, bilateral legs I70.203 Assessments [...] (ICD-10 - M79.675) 02/23/2024 Unspecified atherosclerosis of wiyot arteries of extremities, bilateral legs (ICD-10 - I70.203) Plan Of Treatment Pending Test Test Name Order Date X ray : Foot, left 3V 04/15/2022 [id number] NAIL, 1-5 07/04/2018 37032-SXODUMZ NAIL, 1-5 03/28/2018 71752-Fwgy Destruction, 1-14 03/28/2018 45016-Ckyy Destruction, 1-14 01/05/2018 88715-Bwmv Destruction, 1-14 02/07/2018 83521-Zmlk Destruction, 1-14 07/04/2018 95734-HUWX SKIN LESIONS, 2 TO 4 12/13/19 19 49497-BKTO SKIN LESIONS, 2 TO 4 11/03/19 23 27879-QNXI SKIN LESIONS, 2 TO 4 07/04/19 19 11405-BSGT SKIN LESIONS, 2 TO 4 01/06/20 18 76778-TMPK SKIN LESIONS, 2 TO 4 03/28/20 18 H5949-FVIPOMUF DYSTROPHIC NAILS ANY # U2871-JDDCGHPE DYSTROPHIC NAILS ANY # G9460-LZTTMFXM DYSTROPHIC NAILS ANY # E7312-HAYPBUTM DYSTROPHIC NAILS ANY # 64872- Nail Unit Biopsy 01/05/2018 Insurance Providers Payer Name Payer Address Payer Phone Subscriber Number Group Number Insured Name Patient Relationship to Insured Coverage Start Date Coverage End Date Medicare National Govt [facility] [address] [place] [address] [id number] Knvg De La Torre i Self - patient is the insured AARP Secondary to Medicare [address] [place] [address] [id number] Kvng De La Torre i Self - [...]
--- OUTSIDE RECORDS SUMMARY | 2024-06-13 13:51 | XMS_ITS | Clinical Summary ---
Author Organization Unknown Care Team Providers Care Alliances Consultant Name Role Phone CHANCE FREEMAN, ROSA ISELA Unavailable Unavailable MK PT, OZIEL Unavailable Unavailable COLLIN SATELLITE COMMUNICATIONS ENGINEER, MARION Unavailable Unavailable JOSE BELLN, CAROLINE Unavailable Unavailable CELIO HICKS, NAOMY Unavailable Unavailab le Payers Payer Name Policy Type Policy Number Effective Date Expira tion Date MEDICARE.NGS.PDGM [id number] Problems Condition Name Condition Details Condition Category [...] 08-26 00:00: 00 ATHSCL HEART DISEASE OF [place] CORONARY ARTERY W/O ANG PCTRS Active 08-26 [...] HYPERLIPIDEM IA, UNSPECIFIED Active 08-26 00:00: 00 CASHIER OR CHECKER STOCK CLERK (CURRENT) USE OF ANTITHROMBOT ICS/ANTIPLAT ELETS Active 08-26 00:00: 00 CASHIER OR CHECKER STOCK CLERK (CURRENT) USE OF ANTIBIOTICS Active 08-26 00:00: [...] capsule 00:00: 00 08-27 23:59 :00 No [id number] PNEUMONIA 1 capsule 2 TIMES DAILY 1 capsule 2 TIMES DAILY (route: oral) Med Classific ation: Anti-Infe ctive Agents doxycycline monohydrate 100 mg capsule 00:00: 00 08-27 23:59 :00 No [id number] PNEUMONIA 1 capsule 2 TIMES DAILY 1 capsule 2 TIMES DAILY (route: oral) Med Classific ation: Anti-Infe ctive Agents furosemide 20 mg tablet 00:00: 00 Yes [id number] CHF 1 tablet DAILY 1 tablet DAILY (route: oral) Med Classific ation: Cardiovas cular Therapy Agents Spiriva Respimat 2.5 mcg/actuati on solution for inhalation 215 00:00: 00 Yes [id number] COPD 2 puff EVERY DAY IN THE MORNING FOR COPD FOR 30 DAYS 2 puff EVERY DAY IN THE MORNING FOR COPD FOR 30 DAYS (route: inhalation ) Med Classific ation: Respirato ry Therapy Agents clopidogrel 75 mg tablet 2-14 00:00: 00 Yes [id number] PREVENTION OF BLOOD CLOTS 75 mg DAILY 75 mg DAILY (route: oral) Med Classific ation: Hematolog ical Agents Breo Ellipta 100 mcg-25 mcg/dose powder for inhalation 08-26 00:00: 00 Yes [id number] COPD 1 inhalat ion DAILY 1 inhalation DAILY (route: inhalation ) Med Classific ation: Respirato ry Therapy Agents albuterol sulfate HFA 90 mcg/actuati on aerosol inhaler 08-27 00:00: 00 Yes [id number] COUGH/WHEEZ E 2 puff EVERY 6 HOURS 2 puff EVERY 6 HOURS (route: inhalation ) Med Classific ation: Respirato ry Therapy Agents aspirin 81 mg tablet,[place] yed release 08-26 00:00: 00 Yes [id number] HEART DISEASE 1 tablet DAILY 1 tablet DAILY (route: oral) Med Classific ation: Hematolog ical Agents atorvastati n 10 mg tablet 08-26 00:00: 00 Yes [id number] HLD 1 tablet DAILY 1 tablet DAILY (route: oral) Med Classific ation: Cardiovas cular Therapy Agents ipratropium 0.5 mg-albutero l 3 mg (2.5 mg base)/3 mL nebulizatio n soln 08-27 00:00: 00 Yes [id number] DYSPNEA/WHE LARRY 3 mL EVERY 4 HOURS 3 mL EVERY 4 HOURS (route: inhalation ) Med Classific ation: Respirato ry Therapy Agents lisinopril 20 mg tablet 08-26 00:00: 00 Yes [id number] HTN 1 tablet DAILY 1 tablet DAILY (route: oral) Med Classific ation: Cardiovas cular Therapy Agents melatonin 3 mg tablet 08-26 00:00: 00 Yes [id number] SLEEPLESSNE SS 2 tablet BEDTIME 2 tablet BEDTIME (route: oral) Med Classific ation: Central Nervous System Agents memantine 5 mg tablet - 00:00: 00 Yes [id number] DEMENTIA 1 tablet 2 TIMES DAILY 1 tablet 2 TIMES DAILY (route: oral) Med Classific ation: Cognitive Disorder Therapy quetiapine 100 mg tablet 08-26 00:00: 00 Yes [id number] DEMENTIA 1 tablet BEDTIME 1 tablet BEDTIME (route: oral) Med Classific ation: Central Nervous System Agents quetiapine 50 mg tablet 08-26 00:00: 00 Yes [id number] DEMENTIA 1 tablet DAILY 1 tablet DAILY (route: oral) Med Classific ation: Central Nervous System Agents trazodone 50 mg tablet 08-27 00:00: 00 Yes [id number] SLEEPLESSNE SS 1 tablet BEDTIME 1 tablet [...] ADMISSION AND PRN FOR FOR RN TO ASSESS/CAR STOWER TO OBSERVE PATIENT, WITH NOTIFICATION TO THE [...] ADMISSION AND PRN FOR FOR RN TO ASSESS/CAR STOWER TO OBSERVE PATIENT, WITH NOTIFICATION TO THE [...] DETERIORATION, COMPLICATIONS, OR INFECTION TO RN CLINICAL SPACE SCHEDULER AND/OR PHYSICIAN. HEART FAILURE SELF-MANAGEMENT ( PT) [...] DETERIORATION, COMPLICATIONS, OR INFECTION TO RN CLINICAL SPACE SCHEDULER AND/OR PHYSICIAN. HEART FAILURE SELF-MANAGEMENT ( PT) [...] End Date/Time Encounter Type Admission Type [facility] Care Department Encounter ID Discharge Date Discharge Status Discharge Condition Discharge Reason Percent Goals Met 2023-08-27 00:00:00 2023-10-05 00:00:00 Outpatient NEW ADMISSION NAOMY PICKENS [facility] [id number] 2023-10-05 00:00:00 DISCHARGE TO HOME OR SELF CARE MODERATE ASSIST WITH TRANSFER/A MBULATION/ [facility] HH ONLY - OTHER (PROVIDE DETAILS IN COORD NOTE) 41.38
--- OUTSIDE RECORDS SUMMARY | 2024-06-13 13:51 | XMS_ITS ---
Author Organization [facility] Address [address] [place] [address] Care Team Providers Care Cassandra Consultant Name Role Phone Wes FREEMAN, [place] Primary Care Provider UnaChester Beltran [phone] REASON FOR VISIT SD Reschedule/Cancel Encounters Encounter Location Date Provider Diagnosis [facility] [address] [place] [address] 05/03/2023 Chester Valentin Plan Of Treatment No Information Progress Notes * Kvng LEYVADOB:1940 (82 yo M)Acc No.[id number]:05/03/2023 Patient:?Kvng Leyva :1940???Age:82 Y???Sex:Male Address:[address] [place] [address] * true * Date:? Generated for Printi ng/Fabharathg/eTransmitting on:?06/13/2024 01:50 PM EST
[2024-06-13 13:53] VITALS: BMI 24.4
--- NOTE | 2024-06-13 13:53 | A.OFFVIS_ITS ---
Vital Signs 06/13/24 13:53 Height 5 ft 10 in Weight 170 lb BMI 24.4 Intake Visit Reasons: Arterial Follow Up Intake Note: Arterial uS follow up 05/18/24, no complaints Accompanied by: Spouse Allergies No Known Allergies Allergy (Mild, Verified 06/13/24 13:54) NONE cats dogs ragweed dust pollen Allergy (Unknown, Uncoded 06/13/24 13:54) Unknown HPI HPI Arterial Follow Up: Details: Pleasant 83-year-old gentleman presents for routine surveillance follow-up regarding peripheral vascular disease. This was originally discovered upon workup for DVT and PE on 01/29/2024. At that time he was started on Eliquis. He is a rather frail gentleman we use of oxygen and is mostly in a wheelchair. He reports that he quit smoking about 10 years ago. He relates mostly a sedentary lifestyle and does not ambulate that much. He does report that he can ambulate about a half a block but become short of breath. At the current time he denies any ulcerations he denies any significant lower extremity pain. [facility] Medical History Insomnia Pure hypercholesterolemia Essential hypertension Pneumothorax after biopsy Hypoxemia COPD (chronic obstructive pulmonary disease) Pulmonary emphysema Osteopenia Hyperparathyroidism Osteoporosis Vitamin D deficiency Multinodular thyroid Surgical History Hx of prostatectomy Hx of hernia repair Family History Father No problems noted. Mother No problems noted. Social History Household Members: Family Household Members Other:: 2 Housing: House Do you presently have visiting nurse or other home services: Yes Alcohol intake: never Comment: sitter Patient Tobacco Use Status: Former Tobacco user Tobacco use type: Cigarette e-Cigarette/Vaping Use: Never Used Second Hand Smoke Exposure: Yes Advance Directives Date on File: 02/28/23 service: No Current occupational status: retired Sexual orientation: Straight/Heterosexual Cognitive needs: Yes Hearing needs: No Vision needs: No Review of Systems Const All systems reviewed & are unremarkable except as noted in HPI and below Reports no additional complaints ENT Reports Normal hearing present Card Denies chest pain, Denies chest pain at rest, Denies chest pain with activity and Denies pedal edema Resp Denies cough GI Denies abdominal pain Musc Denies abnormal gait, Denies muscle cramps and Denies radiating pain into limb Skin/Breast Denies skin ulcer and Denies wounds Neuro Reports Normal hearing present and Denies abnormal gait Psych Reports no additional complaints Physical Exam Vital Signs: BMI result Body Mass Index 24.4 Const General: cooperative, healthy appearing and comfortable Orientation/consciousness: oriented to person, oriented to place and oriented to time HEENT Head: Yes normal to inspection Neck Neck: Yes normal visual inspection Carotids: no bruits Chest Chest palpation & inspection: normal inspection of the chest Resp Effort & Inspection: normal respiratory effort and able to speak in complete sentences Auscultation: clear to auscultation bilaterally, no crackles, no rales, no rhonchi and no wheezes Cardio Rate: regular rate Rhythm: regular rhythm Heart sounds: S1 normal heart sound present and S2 normal heart sound present Bruits: no carotid bruits Peripheral pulses: Peripheral pulses 2+ throughout GI Inspection: Yes normal to inspection Skin Wounds: no wounds Hair: normal Neuro General: oriented to person, oriented to place and oriented to time Cranial nerves: Yes CN's II-XII intact bilaterally and Yes Normal hearing present Cognition (Neuro): normal cognition Motor exam (neuro): 5/5 motor strength present throughout Extrem Other: venous exam: No significant superficial varicosities or spider telangiectasias, minimal edema General: No clubbing, No cyanosis and No edema Psych Appearance: grossly normal Mental Status: mental status grossly normal Speech and movement: Normal speech and movement present Results Reviewed Results Reviewed: Noninvasive arterial testing dated 05/18/2024 demonstrates right-sided STEPHON 0.71 and left side 1.24. Written report and images were reviewed. Assessment & Plan Assessment & Plan (1) PAD (peripheral artery disease): Code(s): I73.9 - Peripheral vascular disease, unspecified Category: Medical Plan: In short patient has stable claudication. I did review the pathophysiology of peripheral vascular disease with the patient. In addition we did discuss routine conservative measures including a healthy diet and the importance of exercise and ambulation. We did discuss risk factor modification. The patient will continue to to follow-up with surveillance follow-up in approximately 1 year. Thank you for allowing us to participate in this patient's care. If there are any questions or concerns please do not hesitate to contact us. Coding Level of Care Code Est Pt Level 4 (02724) Diagnoses PAD (peripheral artery disease) I73.9
== END 2024-06-13 14:08 | disposition home or self-care (01) ==
PROVIDERS: Visit Provider Surgery Vascular Surgery
DX: I73.9 Peripheral vascular disease, unspecified (principal)
CPT/HCPCS: 99214

== ENCOUNTER → 2024-06-13 13:48 | Outpatient (BNVA) | payer MEDICARE, SELFPAY | PROVIDERS: Visit Provider Surgery Vascular Surgery | DX: I73.9 Peripheral vascular disease, unspecified (principal) | CPT/HCPCS: 99212 ==

== ENCOUNTER 2024-07-03 08:48 | Outpatient (AMB) | payer MEDICARE, SELFPAY ==
--- NOTE | 2024-07-03 09:15 | AM.OFFWIN_ITS ---
Intake Vital Signs 07/03/24 09:17 Weight 169 lb BP 122/80 Blood Pressure Location Lt brachial Position Sitting Pulse 68 Pulse Source Pulse Oximeter Pulse Oximetry (%) 95 Oxygen Delivery Method Nasal Cannula Intake Visit Reasons: EP wax inside ears Intake Note: Patient here for bilat ear bloackage that has been going on for 3-4 days. Patient Tobacco Use Status: Former Tobacco user Allergies No Known Allergies Allergy (Mild, Verified 07/03/24 09:18) NONE cats dogs ragweed dust pollen Allergy (Unknown, Uncoded 07/03/24 09:18) Unknown Do you need a note to return to daycare/school/sports/work: No HPI HPI Comments History of Present Illness Details History - The patient is an 83-year-old male pre senting with bilateral blocked ears and possible ear infection. - Symptoms began three days ago with cer umen buildup. - The patient uses hearing aids, which m ay contribute to wax buildup. - The right ear is more affected than th e left, with reduced hearing reported. - The patient has a history of using joey e kind of ear drops, unsure of the name, and occasionally peroxide. - There is a history of past ear infecti ons. [facility] Medical History Insomnia Pure hypercholesterolemia Essential hypertension Pneumothorax after biopsy Hypoxemia COPD (chronic obstructive pulmonary disease) Pulmonary emphysema Osteopenia Hyperparathyroidism Osteoporosis Vitamin D deficiency Multinodular thyroid Surgical History Hx of prostatectomy Hx of hernia repair Family History Father No problems noted. Mother No problems noted. Social History Household Members: Family Household Members Other:: 2 Housing: House Do you presently have visiting nurse or other home services: Yes Alcohol intake: never Comment: sitter Patient Tobacco Use Status: Former Tobacco user Tobacco use type: Cigarette e-Cigarette/Vaping Use: Never Used Second Hand Smoke Exposure: Yes Advance Directives Date on File: 02/28/23 service: No Current occupational status: retired Sexual orientation: Straight/Heterosexual Cognitive needs: Yes Hearing needs: No Vision needs: No Review of Systems Const All systems reviewed & are unremarkable except as noted in HPI and below Physical Exam Vital Signs: Last Vital Signs Pulse 68 07/03/24 09:17 BP 122/80 07/03/24 09:17 Pulse Ox 95 07/03/24 09:17 Oxygen Delivery Method Nasal Cannula 07/03/24 09:17 Const General: cooperative, healthy appearing, comfortable and no acute distress Orientation/consciousness: patient oriented x3 HEENT Head: Yes normal to inspection Ears: mastoids normal, Abnormal EAC present cerumen impaction and unable to visualize TM (cerumen blockage; once clear, right TM bulging erythema & purulent effusion) bilaterally General nose exam: Normal external nose present Face and sinus: Yes normal facial exam Resp Effort & Inspection: normal respiratory effort and able to speak in complete sentences Neuro General: patient oriented x3 Office Procedures Cerumen Removal From which ear canal was the cerumen removed: bilateral Removal: irrigation and otoscope w/curette Notes: patient tolerated procedure well, no complications and ear canal clear 77331-Xyl Irrigation/Lavage Assessment & Plan Assessment & Plan (1) Otitis media of right ear: Code(s): H66.91 - Otitis media, unspecified, right ear Qualifiers: Otitis media type: suppurative Chronicity: acute Recurrence: non-recur rent Spontaneous tympanic membrane rupture: without spontaneous rupture Qualified Code(s): H66.001 - Acute suppurative otitis media without spontaneous rupture of ear drum, right ear Plan: The treatment plan consists of managing cerumen impaction through ear flushing and removal of excess wax, especially targeting the right ear that shows signs of blockage and infection. An antibiotic prescription is recommended to treat what appears to be an acute otitis media, contributing to hearing issues and inflammation. We discussed using Debrox ear drops periodically to prevent future wax buildup. The antibiotic is chosen to clear any infection and improve auditory function. Patient was informed and verbally consented to the use of an ambient scribe for clinic note documentation during this visit (2) Bilateral impacted cerumen: Code(s): H61.23 - Impacted cerumen, bilateral Plan: as above Medications: New amoxicillin 875 mg PO Q12H 14 tabs 0RF Coding Level of Care Code New Pt Level 4 (73389) Diagnoses Non-recurrent acute suppurative otitis media of right ear without spontaneous rupture of tympanic membrane H66.001 Otitis media type: suppurative Chronicity: acute Recurrence: non-recurrent Spontaneous tympanic membrane rupture: without spontaneous rupture Bilateral impacted cerumen H61.23 CPT Codes Office Procedure - CPT: 44722-Fcc Irrigation/Lavage ([id number])
--- OUTSIDE RECORDS SUMMARY | 2024-07-03 09:15 | XMS_ITS | Patient Health Record ---
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 confirmed Problem Localized, primary osteoarthritis of the ankle and/or foot (815119815) Primary osteoarthritis, left 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) Active confirmed Vital Signs Blood pressure diastolic 77 mm Hg 02/23/2024 Height 5 ft 9 in in 02/23/2024 Blood pressure systolic 120 mm Hg 02/23/2024 Weight 170 lbs 02/23/2024 BMI 25.10 kg/m2 02/23/2024 Encounters Encounter Location Date Provider Diagnosis [facility] [place] [address] [place] [address] 02/23/2024 Chester Valentin Other viral warts B0 7.8 ; Pain in left foot M79.672 ; Pain in right foot M79.671 ; Tinea unguium B35.1 ; Pain in right toe(s) M79.674 ; Pain in left toe(s) M79.675 and Unspecified atherosclerosis of [place] arteries of extremities, bilateral legs I70.203 Assessments [...] (ICD-10 - M79.675) 02/23/2024 Unspecified atherosclerosis of [place] arteries of extremities, bilateral legs (ICD-10 - I70.203) Plan Of Treatment Pending Test Test Name Order Date X ray : Foot, left 3V 04/15/2022 16169-AASIKHT NAIL, 1-5 07/04/2018 74614-EZBQCIO NAIL, 1-5 03/28/2018 74155-Qmye Destruction, 1-14 03/28/2018 38032-Tcwr Destruction, 1-14 01/05/2018 32293-Nkak Destruction, 1-14 02/07/2018 45964-Wceb Destruction, 1-14 07/04/2018 37751-KTYI SKIN LESIONS, 2 TO 4 12/13/19 19 50172-VZMQ SKIN LESIONS, 2 TO 4 11/03/19 23 93129-OAGJ SKIN LESIONS, 2 TO 4 07/04/19 19 09210-BLUL SKIN LESIONS, 2 TO 4 01/06/20 18 16588-WTNX SKIN LESIONS, 2 TO 4 03/28/20 18 T2013-JEYRPTYI DYSTROPHIC NAILS ANY # O4318-XFHGGQIX DYSTROPHIC NAILS ANY # K9368-BTLOOVQJ DYSTROPHIC NAILS ANY # L9559-JWJRWCBI DYSTROPHIC NAILS ANY # 57512- Nail Unit Biopsy 01/05/2018 Insurance Providers Payer Name Payer Address Payer Phone Subscriber Number Group Number Insured Name Patient Relationship to Insured Coverage Start Date Coverage End Date Medicare National Govt [facility] [address] [place] [address] [id number] Kvng De La Torre i Self - patient is the insured AARP Secondary to Medicare [address] [place] [address] [id number] Kvng De La Torre i Self - [...]
--- OUTSIDE RECORDS SUMMARY | 2024-07-03 09:15 | XMS_ITS ---
Author Organization [facility] Address [address] [place] [address] Care Team Providers Care Fixed Income Manager Name Role Phone Wes FREEMAN, [place] Primary Care Provider Chester Velasco Unavailable [phone] REASON FOR VISIT Painful nail(s) aggrevated by shoes and causing difficulty standing/walking., Wart(s), Foot pain Encounters Encounter Location Date Provider Diagnosis [facility] [address] [place] [address] 05/03/2023 Chester Valentin Other viral warts B0 7.8 ; Pain in left foot M79.672 ; Pain in right foot M79.671 ; Tinea unguium B35.1 ; Pain in right toe(s) M79.674 ; Pain in left toe(s) M79.675 and Unspecified atherosclerosis of [place] arteries of extremities, bilateral legs I70.203 Assessments [...] (ICD-10 - M79.675) 05/03/2023 Unspecified atherosclerosis of [place] arteries of extremities, bilateral legs (ICD-10 - [...] as necessary. Patient chooses, no pharmaceutical tx (04634) Keratoma Treatment Parring or Cutting o f Benign Hyperkeratotic Lesion(s) 55247 (2-4 Lesions) - The Benign hyperkeratotic lesions, as described above were pared, and/or cut utilizing a sterile #15 blade, tissue nippers, and/or dremel, Q8 Progress Notes * Kvng LEYVADOB:1940 (83 yo M)Acc No.[id number]:05/03/2023 Progress Note Patient:?Kvng LEYVA Provider:?Chester Valentin DPM :1940???Age:82 Y???Sex:Male Francis e:05/03/2023 Address:[address] [place], [place] [id number] Pcp:Alex Harvey MD Subjective: * Chief Complaints: [...] tingling, B/L; pop left metatarsals -2-4.?Vascular: ?DP PULSES (B):? 0/4, B/L.?PT PULSES (B):? 0/4, B/L.?EDEMA (C):? 2/4, Left foot with ecchymosis.?Dermatologic: ?SKIN FINDINGS:? [...] in left toe(s) - M79.675???7.?Unspecified atherosclerosis of [place] arteries of extremities, bilateral legs - I70.203??? [...] as necessary. Patient chooses, no pharmaceutical tx (16391).?Keratoma Treatment:?Parring or Cutting of Benign Hyperkeratotic Lesion(s)?19912 (2-4 Lesions) - The Benign hyperkeratotic lesions, as described above were pared, and/or cut utilizing a sterile #15 blade, tissue nippers, and/or dremel, Q8.?Wart Treatment:?Procedure?Verrucae(s) were debrided to pin-point bleeding with sterile surgical blade, silver nitrate chemocautery applied, recomm. Wartstick 40% Salicylic acid application under occlusion as directed.? * Procedure Codes:?20323 DEBRI DE NAIL, 6 OR MORE, Modifiers: XS , 24198 Wart Destruction, 1-14, Modifiers: XS , 86225 TRIM SKIN LESIONS, 2 TO 4, Modifiers: Q8 * Follow Up:?3 Months * Images: * The named appointment provid er may or may not be the originator of this progress note, and it is not deemed complete until electronically signed by the appointment provider. Sign off status: Pending * Provider:?Chester Valentin DPM Date:? 023 Generated for Erica butler/Zainab/Charuitting on:?07/03/2024 09:15 AM EST History and Physical Notes * HPI (History of Present Illness) Category Sub-Category Detail Notes Category Not es Painful Nails Pt States Last PCP Visit: Date:: 01/29/2023 Skin problems Nature: swelling, redness Location: Left , Forefoot, Mid foot, Heel/Rearfoot Duration: several weeks Onset/Cause: unknown Course: improved Aggravated by: no aggrevating facto rs Treatments: [facility] ER and two week course of oral [...] ORIENTED: person,place, and ti me Vascular DP PULSES (B): 0/4, B/L PT PULSES (B): 0/4, B/L EDEMA (C): 2/4, Left foot with ecchymosis Nails NAILS are: Elongated, overg rown, dystrophic, lytic, greater than 3mm thick, discolored and friable with crumbly malodorous subungual debris, with pain on palpation, 1-5 B/L
--- OUTSIDE RECORDS SUMMARY | 2024-07-03 09:15 | XMS_ITS ---
Author Organization [facility] Address [address] [place] [address] Care Team Providers Care Technical Sales Support Specialist Name Role Phone Wes FREEMAN, [place] Primary Care Provider UnaChester Beltran [phone] REASON FOR VISIT SD Reschedule/Cancel Encounters Encounter Location Date Provider Diagnosis [facility] [address] [place] [address] 05/03/2023 Chester Valentin Plan Of Treatment No Information Progress Notes * Kvng LEYVADOB:1940 (82 yo M)Acc No.[id number]:05/03/2023 Patient:?Kvng Leyva :1940???Age:82 Y???Sex:Male Address:[address] [place] [address] * true * Date:? Generated for Printi luke/Zainab/eTransmitting on:?07/03/2024 09:15 AM EST
--- OUTSIDE RECORDS SUMMARY | 2024-07-03 09:15 | XMS_ITS ---
Author Organization [facility] Address [address] [facility] [place] [address] Care Team Providers Care Flotation Tender Helper Name Role Phone Wes FREEMAN, [place] Primary Care Provider Chester Velasco Unavailable [phone] Allergies Allergen (clinical drug ingredient) Drug/Non Drug [...] 024 Encounters Encounter Location Date Provider Diagnosis [facility] [address] [place] [address] 02/23/2024 Chester Valentin Other viral warts B0 7.8 ; Pain in left foot M79.672 ; Pain in right foot M79.671 ; Tinea unguium B35.1 ; Pain in right toe(s) M79.674 ; Pain in left toe(s) M79.675 and Unspecified atherosclerosis of [place] arteries of extremities, bilateral legs I70.203 Assessments [...] (ICD-10 - M79.675) 02/23/2024 Unspecified atherosclerosis of [place] arteries of extremities, bilateral legs (ICD-10 - [...] as necessary. Patient chooses, no pharmaceutical tx (02927) Keratoma Treatment Parring or Cutting o f Benign Hyperkeratotic Lesion(s) 17879 (2-4 Lesions) - The Benign hyperkeratotic lesions, as described above were pared, and/or cut utilizing a sterile #15 blade, tissue nippers, and/or dremel, Q8 Progress Notes * Kvng LEYVA JDOB:1940 (83 yo M)Acc No.[id number]:02/23/2024 Progress Note Patient:?Kvng Leyva Provider:?Chester Valentin DPM :1940???Age:83 Y???Sex:Male Francis e:02/23/2024 Address:[address] [place] [address] , [facility] Pcp:Alex Harvey MD Subjective: * Chief Complaints: [...] in left toe(s) - M79.675?7.?Unspecified atherosclerosis of [place] arteries of extremities, bilateral legs - I70.203? [...] as necessary. Patient chooses, no pharmaceutical tx (13419).?Keratoma Treatment:?Parring or Cutting of Benign Hyperkeratotic Lesion(s)?65463 (2-4 Lesions) - The Benign hyperkeratotic lesions, as described above were pared, and/or cut utilizing a sterile #15 blade, tissue nippers, and/or dremel, Q8.?Wart Treatment:?Procedure?Verrucae(s) were debrided to pin-point bleeding with sterile surgical blade, silver nitrate chemocautery applied, recomm. Wartstick 40% Salicylic acid application under occlusion as directed.? * Procedure Codes:?11133 DEBRI DE NAIL, 6 OR MORE, Modifiers: XS 97370 Wart Destruction, 1-14, Modifiers: XS 81572 TRIM SKIN LESIONS, 2 TO 4, Modifiers: Q8 * Follow Up:?prn * Images: * Sign off status: Completed true * Provider:Cristal Valentin DPM Date:? 024 Generated for Erica butler/Zainab/eTransmitting on:?07/03/2024 09:14 AM EST History and Physical Notes * [...]
--- OUTSIDE RECORDS SUMMARY | 2024-07-03 09:16 | XMS_ITS | Clinical Summary ---
Author Organization Unknown Care Team Providers Care Data Entry Manager Name Role Phone CHANCE FREEMAN, ROSA ISELA Unavailable Unavailable MK PT, OZIEL Unavailable Unavailable COLLIN SECOND BAKER, MARION Unavailable Unavailable JOSE BELLN, CAROLINE Unavailable Unavailable CELIO HICKS, NAOMY Unavailable Unavailab le Payers Payer Name Policy Type Policy Number Effective Date Expira tion Date MEDICARE.NGS.PDGM [id number] Problems Condition Name Condition Details Condition Category [...] 08-26 00:00: 00 ATHSCL HEART DISEASE OF [place] CORONARY ARTERY W/O ANG PCTRS Active 08-26 [...] HYPERLIPIDEM IA, UNSPECIFIED Active 08-26 00:00: 00 FPC (CURRENT) USE OF ANTITHROMBOT ICS/ANTIPLAT ELETS Active 08-26 00:00: 00 FPC (CURRENT) USE OF ANTIBIOTICS Active 08-26 00:00: 00 FPC (CURRENT) USE OF INHALED STEROIDS Active 08-26 [...] capsule 00:00: 00 08-27 23:59 :00 No [id number] PNEUMONIA 1 capsule 2 TIMES DAILY 1 capsule 2 TIMES DAILY (route: oral) Med Classific ation: Anti-Infe ctive Agents doxycycline monohydrate 100 mg capsule 00:00: 00 08-27 23:59 :00 No [id number] PNEUMONIA 1 capsule 2 TIMES DAILY 1 capsule 2 TIMES DAILY (route: oral) Med Classific ation: Anti-Infe ctive Agents furosemide 20 mg tablet 00:00: 00 Yes [id number] CHF 1 tablet DAILY 1 tablet DAILY (route: oral) Med Classific ation: Cardiovas cular Therapy Agents Spiriva Respimat 2.5 mcg/actuati on solution for inhalation 215 00:00: 00 Yes [id number] COPD 2 puff EVERY DAY IN THE MORNING FOR COPD FOR 30 DAYS 2 puff EVERY DAY IN THE MORNING FOR COPD FOR 30 DAYS (route: inhalation ) Med Classific ation: Respirato ry Therapy Agents clopidogrel 75 mg tablet 2-14 00:00: 00 Yes [id number] PREVENTION OF BLOOD CLOTS 75 mg DAILY 75 mg DAILY (route: oral) Med Classific ation: Hematolog ical Agents Breo Ellipta 100 mcg-25 mcg/dose powder for inhalation 08-26 00:00: 00 Yes [id number] COPD 1 inhalat ion DAILY 1 inhalation DAILY (route: inhalation ) Med Classific ation: Respirato ry Therapy Agents albuterol sulfate HFA 90 mcg/actuati on aerosol inhaler 08-27 00:00: 00 Yes [id number] COUGH/WHEEZ E 2 puff EVERY 6 HOURS 2 puff EVERY 6 HOURS (route: inhalation ) Med Classific ation: Respirato ry Therapy Agents aspirin 81 mg tablet,[place] yed release 08-26 00:00: 00 Yes [id number] HEART DISEASE 1 tablet DAILY 1 tablet DAILY (route: oral) Med Classific ation: Hematolog ical Agents atorvastati n 10 mg tablet 08-26 00:00: 00 Yes [id number] HLD 1 tablet DAILY 1 tablet DAILY (route: oral) Med Classific ation: Cardiovas cular Therapy Agents ipratropium 0.5 mg-albutero l 3 mg (2.5 mg base)/3 mL nebulizatio n soln 08-27 00:00: 00 Yes [id number] DYSPNEA/WHE LARRY 3 mL EVERY 4 HOURS 3 mL EVERY 4 HOURS (route: inhalation ) Med Classific ation: Respirato ry Therapy Agents lisinopril 20 mg tablet 08-26 00:00: 00 Yes [id number] HTN 1 tablet DAILY 1 tablet DAILY (route: oral) Med Classific ation: Cardiovas cular Therapy Agents melatonin 3 mg tablet 08-26 00:00: 00 Yes [id number] SLEEPLESSNE SS 2 tablet BEDTIME 2 tablet BEDTIME (route: oral) Med Classific ation: Central Nervous System Agents memantine 5 mg tablet - 00:00: 00 Yes [id number] DEMENTIA 1 tablet 2 TIMES DAILY 1 tablet 2 TIMES DAILY (route: oral) Med Classific ation: Cognitive Disorder Therapy quetiapine 100 mg tablet 08-26 00:00: 00 Yes [id number] DEMENTIA 1 tablet BEDTIME 1 tablet BEDTIME (route: oral) Med Classific ation: Central Nervous System Agents quetiapine 50 mg tablet 08-26 00:00: 00 Yes [id number] DEMENTIA 1 tablet DAILY 1 tablet DAILY (route: oral) Med Classific ation: Central Nervous System Agents trazodone 50 mg tablet 08-27 00:00: 00 Yes [id number] SLEEPLESSNE SS 1 tablet BEDTIME 1 tablet [...] ADMISSION AND PRN FOR FOR RN TO ASSESS/PRINTER MACHINE TO OBSERVE PATIENT, WITH NOTIFICATION TO THE [...] ADMISSION AND PRN FOR FOR RN TO ASSESS/PRINTER MACHINE TO OBSERVE PATIENT, WITH NOTIFICATION TO THE [...] DETERIORATION, COMPLICATIONS, OR INFECTION TO RN CLINICAL AUTOTRANSFUSIONIST AND/OR PHYSICIAN. HEART FAILURE SELF-MANAGEMENT ( PT) [...] DETERIORATION, COMPLICATIONS, OR INFECTION TO RN CLINICAL AUTOTRANSFUSIONIST AND/OR PHYSICIAN. HEART FAILURE SELF-MANAGEMENT ( PT) [...] End Date/Time Encounter Type Admission Type Attending [facility] Care Facility Care Department Encounter ID Discharge Date Discharge Status Discharge Condition Discharge Reason Percent Goals Met 2023-08-27 00:00:00 2023-10-05 00:00:00 Outpatient NEW ADMISSION NAOMY PICKENS [facility] [id number] 2023-10-05 00:00:00 DISCHARGE TO HOME OR SELF CARE MODERATE ASSIST WITH TRANSFER/A MBULATION/ [facility]LS HH ONLY - OTHER (PROVIDE DETAILS IN COORD NOTE) 41.38
--- OUTSIDE RECORDS SUMMARY | 2024-07-03 09:16 | XMS_ITS | Clinical Summary ---
Author Organization Unknown Care Team Providers Care Chemical Processing Supervisor Name Role Phone CHANCE FREEMAN, ROSA ISELA Unavailable Unavailable MK PT, OZIEL Unavailable Unavailable COLLIN FITNESS DIRECTOR, MARION Unavailable Unavailable JOSE BELLN, CAROLINE Unavailable Unavailable CELIO HICKS, NAOMY Unavailable Unavailab le Payers Payer Name Policy Type Policy Number Effective Date Expira tion Date MEDICARE.NGS.PDGM [id number] Problems Condition Name Condition Details Condition Category [...] 08-26 00:00: 00 ATHSCL HEART DISEASE OF [place] CORONARY ARTERY W/O ANG PCTRS Active 08-26 [...] HYPERLIPIDEM IA, UNSPECIFIED Active 08-26 00:00: 00 INTERMEDIATE (CURRENT) USE OF ANTITHROMBOT ICS/ANTIPLAT ELETS Active 08-26 00:00: 00 INTERMEDIATE (CURRENT) USE OF ANTIBIOTICS Active 08-26 00:00: 00 INTERMEDIATE (CURRENT) USE OF INHALED STEROIDS Active 08-26 [...] capsule 00:00: 00 08-27 23:59 :00 No [id number] PNEUMONIA 1 capsule 2 TIMES DAILY 1 capsule 2 TIMES DAILY (route: oral) Med Classific ation: Anti-Infe ctive Agents doxycycline monohydrate 100 mg capsule 00:00: 00 08-27 23:59 :00 No [id number] PNEUMONIA 1 capsule 2 TIMES DAILY 1 capsule 2 TIMES DAILY (route: oral) Med Classific ation: Anti-Infe ctive Agents furosemide 20 mg tablet 00:00: 00 Yes [id number] CHF 1 tablet DAILY 1 tablet DAILY (route: oral) Med Classific ation: Cardiovas cular Therapy Agents Spiriva Respimat 2.5 mcg/actuati on solution for inhalation 215 00:00: 00 Yes [id number] COPD 2 puff EVERY DAY IN THE MORNING FOR COPD FOR 30 DAYS 2 puff EVERY DAY IN THE MORNING FOR COPD FOR 30 DAYS (route: inhalation ) Med Classific ation: Respirato ry Therapy Agents clopidogrel 75 mg tablet 2-14 00:00: 00 Yes [id number] PREVENTION OF BLOOD CLOTS 75 mg DAILY 75 mg DAILY (route: oral) Med Classific ation: Hematolog ical Agents Breo Ellipta 100 mcg-25 mcg/dose powder for inhalation 08-26 00:00: 00 Yes [id number] COPD 1 inhalat ion DAILY 1 inhalation DAILY (route: inhalation ) Med Classific ation: Respirato ry Therapy Agents albuterol sulfate HFA 90 mcg/actuati on aerosol inhaler 08-27 00:00: 00 Yes [id number] COUGH/WHEEZ E 2 puff EVERY 6 HOURS 2 puff EVERY 6 HOURS (route: inhalation ) Med Classific ation: Respirato ry Therapy Agents aspirin 81 mg tablet,[place] yed release 08-26 00:00: 00 Yes [id number] HEART DISEASE 1 tablet DAILY 1 tablet DAILY (route: oral) Med Classific ation: Hematolog ical Agents atorvastati n 10 mg tablet 08-26 00:00: 00 Yes [id number] HLD 1 tablet DAILY 1 tablet DAILY (route: oral) Med Classific ation: Cardiovas cular Therapy Agents ipratropium 0.5 mg-albutero l 3 mg (2.5 mg base)/3 mL nebulizatio n soln 08-27 00:00: 00 Yes [id number] DYSPNEA/WHE LARRY 3 mL EVERY 4 HOURS 3 mL EVERY 4 HOURS (route: inhalation ) Med Classific ation: Respirato ry Therapy Agents lisinopril 20 mg tablet 08-26 00:00: 00 Yes [id number] HTN 1 tablet DAILY 1 tablet DAILY (route: oral) Med Classific ation: Cardiovas cular Therapy Agents melatonin 3 mg tablet 08-26 00:00: 00 Yes [id number] SLEEPLESSNE SS 2 tablet BEDTIME 2 tablet BEDTIME (route: oral) Med Classific ation: Central Nervous System Agents memantine 5 mg tablet - 00:00: 00 Yes [id number] DEMENTIA 1 tablet 2 TIMES DAILY 1 tablet 2 TIMES DAILY (route: oral) Med Classific ation: Cognitive Disorder Therapy quetiapine 100 mg tablet 08-26 00:00: 00 Yes [id number] DEMENTIA 1 tablet BEDTIME 1 tablet BEDTIME (route: oral) Med Classific ation: Central Nervous System Agents quetiapine 50 mg tablet 08-26 00:00: 00 Yes [id number] DEMENTIA 1 tablet DAILY 1 tablet DAILY (route: oral) Med Classific ation: Central Nervous System Agents trazodone 50 mg tablet 08-27 00:00: 00 Yes [id number] SLEEPLESSNE SS 1 tablet BEDTIME 1 tablet [...] ADMISSION AND PRN FOR FOR RN TO ASSESS/WELDER/FITTER TO OBSERVE PATIENT, WITH NOTIFICATION TO THE [...] ADMISSION AND PRN FOR FOR RN TO ASSESS/WELDER/FITTER TO OBSERVE PATIENT, WITH NOTIFICATION TO THE [...] DETERIORATION, COMPLICATIONS, OR INFECTION TO RN CLINICAL POSTDOCTORAL FELLOW AND/OR PHYSICIAN. HEART FAILURE SELF-MANAGEMENT ( PT) [...] DETERIORATION, COMPLICATIONS, OR INFECTION TO RN CLINICAL POSTDOCTORAL FELLOW AND/OR PHYSICIAN. HEART FAILURE SELF-MANAGEMENT ( PT) [...] End Date/Time Encounter Type Admission Type Attending [facility] Care Facility Care Department Encounter ID Discharge Date Discharge Status Discharge Condition Discharge Reason Percent Goals Met 2023-08-27 00:00:00 2023-10-05 00:00:00 Outpatient NEW ADMISSION NAOMY PICKENS [facility] [id number] 2023-10-05 00:00:00 DISCHARGE TO HOME OR SELF CARE MODERATE ASSIST WITH TRANSFER/A MBULATION/ [facility]LS HH ONLY - OTHER (PROVIDE DETAILS IN COORD NOTE) 41.38
[2024-07-03 09:17] VITALS: BP 122/80; PULSE 68; O2SAT 95
== END 2024-07-03 09:35 | disposition home or self-care (01) ==
PROVIDERS: Visit Provider Physician Assistant
DX: H66.001 Acute suppurative otitis media without spontaneous rupture of ear drum, right ear (principal); H61.23 Impacted cerumen, bilateral

== ENCOUNTER → 2024-07-03 08:48 | Outpatient (BNVA) | payer MEDICARE, SELFPAY | PROVIDERS: Visit Provider Physician Assistant | DX: H66.001 Acute suppurative otitis media without spontaneous rupture of ear drum, right ear (principal); H61.23 Impacted cerumen, bilateral | CPT/HCPCS: 69210; 99202 ==

== ENCOUNTER 2024-07-28 09:35 | Emergency (ER) | payer MEDICARE, SELFPAY ==
[2024-07-28] VITALS (7 sets, daily range): BP systolic 129–151; BP diastolic 69–82; PULSE 67–80; RESP 16–21; TEMP 35.9–37.1; O2SAT 96–99; BMI 23.7
--- NOTE | ~2024-07-28 | XR_ITS ---
EXAMINATION: XR SHOULDER 2 OR MORE VIEWS LEFT, XR HUMERUS LEFT HISTORY: pain, injury COMPARISON: There are no prior studies available for comparison. FINDINGS: Four views of the left shoulder and AP and lateral views of the left humerus are submitted. Osseous mineralization is normal. There is no fracture or dislocation. There is mild degenerative change of the glenohumeral joint and moderate degenerative change of the AC joint, with joint space narrowing and osteophyte formation. The humeral head is high riding, articulating with the undersurface of the acromion, consistent with rotator cuff arthropathy. The soft tissues are unremarkable. XR/XR shoulder LT min 2V IMPRESSION: Rotator cuff arthropathy as described. Degenerative changes of the glenohumeral and acromioclavicular joint. No evidence of fracture of the left shoulder or humerus. Electronically signed by: Hari Henson MD 07/28/2024 01:01 PM [facility]
--- NOTE | ~2024-07-28 | XR_ITS ---
EXAMINATION: XR SHOULDER 2 OR MORE VIEWS LEFT, XR HUMERUS LEFT HISTORY: pain, injury COMPARISON: There are no prior studies available for comparison. FINDINGS: Four views of the left shoulder and AP and lateral views of the left humerus are submitted. Osseous mineralization is normal. There is no fracture or dislocation. There is mild degenerative change of the glenohumeral joint and moderate degenerative change of the AC joint, with joint space narrowing and osteophyte formation. The humeral head is high riding, articulating with the undersurface of the acromion, consistent with rotator cuff arthropathy. The soft tissues are unremarkable. XR/XR humerus LT IMPRESSION: Rotator cuff arthropathy as described. Degenerative changes of the glenohumeral and acromioclavicular joint. No evidence of fracture of the left shoulder or humerus. Electronically signed by: Hari Henson MD 07/28/2024 01:01 PM [facility]
--- NOTE | ~2024-07-28 | CT_ITS ---
EXAMINATION: CT CHEST WITH CONTRAST CLINICAL INFORMATION: Status post fall. Chest pain. COMPARISON: CT angiogram chest dated January 29, 2024. TECHNIQUE: Multidetector volumetric CT imaging of the chest was obtained after the administration of 85 mL of Omnipaque 350 intravenous contrast without immediate adverse reactions. Axial MIP volume rendering provided. Sagittal and coronal reformatted images were obtained. This CT examination was performed using dose optimization techniques as appropriate, variously including the following: *Automated exposure control *Adjustment of mA and/or kV according to patient size (this includes techniques or standardized protocols for targeted exams where dose is matched to indication/reason for exam; i.e. extremities or head) *Use of iterative reconstruction technique DLP: 2600 mGy centimeter. FINDINGS: No pneumothorax. No hemothorax. No pneumomediastinum. No hemomediastinum. Thoracic aorta is intact without IV contrast extravasation. No gross lung contusion. No gross acute cortical disruption in the ribs. The included clavicles are intact. The sternum is intact. The scapula are intact. Multilevel cervical thoracic and upper lumbar spondylosis without acute fracture or gross listhesis. Multilevel syndesmophyte formation and marginal osteophyte formation. Old wedge-shaped compression deformity representing 50% volume loss, L1 vertebra resulting in kyphotic deformity at the thoracolumbar junction. Osteopenia versus osteoporosis. Centrilobular emphysematous changes both lungs. Linear and patchy pulmonary groundglass in the right middle lobe and lung bases. Respiratory airways is patent. No gross bronchiectasis or honeycombing. No aneurysm or dissection, thoracic aorta. Calcified plaques in the thoracic aorta wall and its main branches and the coronary arteries. Tortuosity of the aorta. There is a 13 mm vascular abnormality at the 3:00 position of the proximal suprarenal abdominal aorta. Nonspecific bowel prominent mediastinal lymph nodes. No pericardial effusion. Cystic lesions in the kidneys. No dominant nodules in the included thyroid gland. Right-sided pleural effusion, small volume. CT/CT chest w IV con IMPRESSION: No acute intrathoracic injury. Emphysematous changes with the questionable subsegmental atelectasis versus scarring, right middle lung lobe and lung bases. Coronary artery disease and atherosclerosis disease. Multilevel cervical thoracic and upper lumbar spondylosis. Old traumatic deformity, L1 resulting in kyphosis. 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 Bilateral renal cysts. Fleischner guidelines were followed. Electronically signed by: Sundar Ramos MD 07/28/2024 11:29 AM [facility]
--- NOTE | ~2024-07-28 | CT_ITS ---
EXAMINATION: CT ABDOMEN AND PELVIS WITH CONTRAST CLINICAL INFORMATION: Status post fall. Pain. COMPARISON: None available. TECHNIQUE: Multidetector volumetric images were obtained from the superior aspect of the liver through the pubic symphysis following administration 85 mL of Omnipaque 350 intravenous contrast. Sagittal and coronal reformatted images were obtained on the technologist's workstation. Oral contrast: No This CT examination was performed using dose optimization techniques as appropriate, variously including the following: *Automated exposure control *Adjustment of mA and/or kV according to patient size (this includes techniques or standardized protocols for targeted exams where dose is matched to indication/reason for exam; i.e. extremities or head) *Use of iterative reconstruction technique DLP: 2600 mGy centimeter. FINDINGS: No hemoperitoneum. No pneumoperitoneum. Liver is intact. Pancreas is intact. Spleen is intact. Kidneys are intact. No IV contrast extravasation of the abdominal aorta. No gross hematoma, mesenteric or retroperitoneal. No acute fracture in the axial skeleton, bony pelvis or the coxofemoral joints. Punctate calcifications in the pancreas likely chronic pancreatitis. Cystic lesions both kidneys. No hydronephrosis in either kidney. Numerous diverticula throughout the left hemicolon. No intestinal obstruction pattern. Mixed plaques throughout the abdominal aorta with a tortuous saccular morphology pattern. There is a 13 mm vascular abnormality at the 3:00 position suprarenal abdominal aorta. There is a 20 mm vascular abnormality on the right infrarenal abdominal aorta and 18 mm vascular abnormality in the left infrarenal abdominal aorta. There is a 2 cm diameter of the right common iliac artery with mixed plaques. No aneurysm or dissection in the abdominal aorta. Multilevel thoracolumbar spondylosis. Old wedge-shaped compression deformity L1. Grade 1 anterolisthesis L5-S1 on a degenerative basis. Osteopenia versus osteoporosis. Small right-sided pleural effusion. CT/CT abdomen pelvis w IV con IMPRESSION: No intra-abdominal pelvic organ or vascular injury or acute fracture. 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 Fleischner guidelines were followed. Electronically signed by: Sundar Ramos MD 07/28/2024 12:24 PM [facility]
--- NOTE | ~2024-07-28 | CT_ITS ---
EXAMINATION: CT CERVICAL SPINE WITHOUT IV CONTRAST HISTORY: fall, head strike. TECHNIQUE: Helical CT of the cervical spine was performed per standard departmental protocol. Coronal and sagittal reformatted images were also evaluated. One or more of the following techniques was used for dose reduction: Automated exposure control, adjustment of the mA and/or kV according to patient size, use of iterative reconstruction technique. DLP: 401.30 mGy-cm COMPARISON: There are no prior studies for comparison. FINDINGS: CERVICAL SPINE: There is straightening of the normal cervical lordosis. The vertebral bodies maintain normal height without evidence of fracture or subluxation. There is diffuse moderate degenerative disc disease with disc space narrowing and osteophyte formation. There is diffuse facet osteoarthritis and uncovertebral joint hypertrophy causing neural foraminal narrowing. Evaluation for disc pathology is limited by lack of intrathecal contrast material, however. BRAIN: The visualized portion of the brain is unremarkable. SINUSES: The visualized paranasal sinuses, mastoid air cells and middle ear cavities are unremarkable. LUNG APICES: There are emphysematous changes at the lung apices. The visualized lung apices are clear. SOFT TISSUES: There is calcification of the internal carotid arteries. CT/CT cervical spine wo IV con IMPRESSION: No evidence of fracture or malalignment of the cervical spine. Degenerative changes as described.. Electronically signed by: Hari Henson MD 07/28/2024 11:40 AM [facility]
--- NOTE | ~2024-07-28 | XR_ITS ---
EXAMINATION: XR FOREARM 2 VIEWS LEFT HISTORY: pain, injury COMPARISON: There are no prior studies available for comparison. FINDINGS: AP and lateral views of the left forearm are submitted. The bones are osteopenic. There is no fracture or dislocation. The visualized wrist and elbow joint spaces are preserved. The soft tissues are unremarkable. XR/XR forearm LT 2V IMPRESSION: Osteopenia. No evidence of fracture of the left forearm. Electronically signed by: Hari Henson MD 07/28/2024 01:02 PM [facility]
--- NOTE | ~2024-07-28 | CT_ITS ---
EXAMINATION: CT HEAD WITHOUT IV CONTRAST HISTORY: fall, head strike. TECHNIQUE: Unenhanced helical CT of the head was performed per standard departmental protocol. Coronal and sagittal reformats of the head were also evaluated. One or more of the following techniques was used for dose reduction: Automated exposure control, adjustment of the mA and/or kV according to patient size, use of iterative reconstruction technique. DLP: 749.30 mGy-cm COMPARISON: Comparison is made with the prior examination dated 08/22/2023. FINDINGS: BRAIN: There is diffuse prominence of the ventricular system and cortical sulci, consistent with atrophy. Periventricular and subcortical white matter hypodensities are noted which are nonspecific, but often seen in the setting of small vessel ischemic disease. There is no mass effect or midline shift. No intra- or extra-axial fluid collections are identified. SINUSES: There is fluid in the right maxillary sinus. A rounded soft tissue density in the left maxillary sinus is consistent with a polyp versus mucous retention cyst. The mastoid air cells and middle ear cavities are well pneumatized. ORBITS: The visualized orbits are unremarkable. BONES/SOFT TISSUES: The extracranial soft tissues are unremarkable. The calvarium is intact. No suspicious lytic or sclerotic lesions. CT/CT head/brain wo IV con IMPRESSION: 1. No acute intracranial abnormality. 2. Fluid in the right maxillary sinus. Electronically signed by: Hari Henson MD 07/28/2024 11:35 AM [facility] [place]
--- NOTE | 2024-07-28 09:40 | ED_ITS ---
HPI - General Adult General Chief complaint: Fall Stated complaint: dementia Time Seen by Provider: 07/28/24 09:40 Source: patient, family (patient's ) and EMS Mode of arrival: EMS Limitations: physical limitation (cognitive impairment) History of Present Illness ED Provider: Edilia Carrasquillo PA-C HPI narrative: Patient is an 84 year old assigned male at with a history of PAD, HTN, hypercholesterolemia, HFpEF, COPD, and DVT on Eliquis presenting to the emergency department today after a fall. Patient states that this morning he tripped over his dog and fell down 10 steps. Patient states that he is having left shoulder pain. Patient states that he did not lose consciousness with the incident. Patient denies any dizziness, lightheadedness, abdominal pain, nausea, vomiting, fever, chills, blurry vision, double vision, loss of vision, chest pain, difficulty breathing, shortness of breath, back pain, night sweats, pain with urination, increased urinary frequency, increased urinary urgency, blood in his urine or stool, syncope or a near syncopal episode, bowel incontinence, bladder incontinence, or any other complaints at this time. Onset (ago): minute(s) Relieving factors: none Exacerbating factors: none Associated symptoms: denies other symptoms Treatments prior to arrival: none Related Data Home Medications ?Medication ?Instructions ?Recorded ?Confirmed trazodone 50 mg tablet 50 mg PO BEDTIME PRN Insomnia 08/20/23 04/25/24 Previous Rx's ?Medication ?Instructions ?Recorded albuterol sulfate 90 mcg/actuation 2 puff inhalation Q6H PRN 03/30/23 aerosol inhaler (ProAir HFA) shortness of breath or wheezing 30 days #1 inhaler clopidogrel 75 mg tablet 75 mg PO DAILY 30 days #30 tabs 03/30/23 melatonin 3 mg tablet 6 mg (2 x 3 mg) PO BEDTIME PRN 03/30/23 Insomnia #60 tabs memantine 5 mg tablet 5 mg PO BID 30 days #60 tabs 03/30/23 quetiapine 100 mg tablet 100 mg PO BEDTIME 30 days #30 tabs 03/30/23 quetiapine 50 mg tablet 50 mg PO DAILY 30 days #30 tabs 03/30/23 ipratropium 0.5 mg-albuterol 3 mg 3 ml inhalation Q4-6H PRN wheezing 01/03/24 (2.5 mg base)/3 mL nebulization #180 mL soln fluticasone furoate 100 1 ea inhalation DAILY #60 ea 04/28/24 mcg-vilanterol 25 mcg/dose inhalation powder (Breo Ellipta) furosemide 20 mg tablet 20 mg PO QAM edema #30 tabs 04/29/24 cholecalciferol (vitamin D3) 50 50 mcg PO DAILY 90 days #90 caps 05/08/24 mcg (2,000 unit) capsule olanzapine 2.5 mg tablet (Zyprexa) 2.5 mg PO QPM PRN 05/25/24 Agitation/hallucination #30 tabs tiotropium bromide 2.5 2 puff inhalation DAILY COPD #4 05/29/24 mcg/actuation mist for inhalation grams (Spiriva Respimat) amoxicillin 875 mg tablet 875 mg PO Q12H #14 tabs 07/03/24 apixaban 5 mg tablet 5 mg PO BID 30 days #60 tabs 07/05/24 atorvastatin 10 mg tablet 10 mg PO BEDTIME 90 days #90 tabs 07/05/24 lisinopril 20 mg tablet 20 mg PO DAILY 90 days #90 tabs 07/05/24 Allergies Allergy/AdvReac Type Severity Reaction Status Date / Time No Known Allergies Allergy Mild NONE Verified 07/28/24 09:59 cats dogs ragweed dust pollen Allergy Unknown Unknown Uncoded 07/28/24 09:59 Review of Systems 2 Constitutional: Constitutional: Reports no additional constitutional complaints, Denies chills, Denies fever(s) and Denies night sweats Eyes: Eyes: Reports no additional eye complaints, Denies blurry vision, Denies change in vision, Denies diplopia, Denies eye discharge, Denies loss of vision and Denies eye pain ENT: Denies dizziness Cardiovascular: Cardiovascular: Reports no additional cardiovascular complaints, Denies chest pain, Denies lightheadedness, Denies Loss of Consciousness and Denies dyspnea Respiratory: Respiratory: Reports no additional respiratory complaints and Denies dyspnea Gastrointestinal: Gastrointestinal: Reports no additional gastrointestinal complaints, Denies abdominal pain, Denies melena, Denies hematochezia, Denies change in bowel habits and Denies change in stool character Genitourinary: Genitourinary: Reports no additional male genitourinary complaints, Denies hematuria, Denies oliguria, Denies difficulty urinating, Denies dysuria, Denies urinary frequency, Denies urinary hesitancy, Denies urinary incontinence and Denies urinary urgency Musculoskeletal: Musculoskeletal: Reports no additional musculoskeletal complaints, Denies numbness and Denies tingling Comments: left shoulder pain Neurologic: Denies dizziness, Denies loss of vision, Denies numbness and Denies tingling Psychiatric: Psychiatric: Reports no additional psychiatric complaints Endocrine: Endocrine: Reports no additional endocrine complaints Hematologic/Lymphatic: Hematologic/Lymphatic: Reports no additional hematologic/lymphatic complaints Allergic/Immunologic: Allergic/Immunologic: Reports no additional allergic/immunologic complaints [facility] Past Medical History Attestation statement: The following information was validated with the patient. Source: old records reviewed and nursing notes reviewed Medical History Insomnia Pure hypercholesterolemia Essential hypertension Pneumothorax after biopsy Hypoxemia COPD (chronic obstructive pulmonary disease) Pulmonary emphysema Osteopenia Hyperparathyroidism Osteoporosis Vitamin D deficiency Multinodular thyroid Surgical History Hx of prostatectomy Hx of hernia repair Family History Family History Father No problems noted. Mother No problems noted. Social History 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: sitter Patient Tobacco Use Status: Former Tobacco user Tobacco use type: Cigarette Smoked in Last 30 Days: No e-Cigarette/Vaping Use: Never Used Second Hand Smoke Exposure: Yes Use of substances other than those prescribed or required for medical reasons: No Advance Directives: Yes Advance Directives on File: Yes Advance Directives Date on File: 02/28/23 Do you have a plan to hurt others: No Plan service: No Current occupational status: retired Sexual orientation: Straight/Heterosexual Cognitive needs: Yes Hearing needs: No Vision needs: No Physical Exam ED Vital Signs: Vital Signs - 24 hr 07/28/24 09:56 07/28/24 10:47 07/28/24 10:47 Temperature 98.5 F Pulse Rate 80 67 Respiratory Rate 21 H 20 Blood Pressure 140/80 H 151/80 H Pulse Oximetry 99 Oxygen Delivery Method Nasal Cannula 07/28/24 13:32 07/28/24 13:36 07/28/24 14:01 Temperature 98.7 F 96.6 F L Pulse Rate 74 72 72 Respiratory Rate 18 21 H Blood Pressure 136/69 136/72 136/72 Pulse Oximetry 98 96 96 Oxygen Delivery Method Room Air Room Air BMI result Body Mass Index 23.7 Const General: cooperative, no acute distress, alert and awake Nutritional Appearance: well nourished Orientation/consciousness: oriented to person and oriented to place Limitations: other limitations (patient has a history of cognitive impairment) [facility] Head: Yes normal to inspection and Yes atraumatic Ears: hearing grossly normal bilaterally and external ears normal General nose exam: Normal external nose present, no nasal discharge noted and no epistaxis Face and sinus: Yes normal facial exam, No abrasion and No laceration Mouth: Normal oral and palatal mucosa present, no drooling and no muffled voice Eyes General: appearance normal, both eyes and all related structures Periorbital: periorbital findings normal Eyelids: Yes eyelids normal Conjunctivae: conjunctivae normal Pupils: Equal, round and reactive pupils present EOM: EOMs intact bilaterally Neck Neck: Yes normal visual inspection, Yes full ROM and Yes no lymphadenopathy Chest Chest palpation & inspection: normal inspection of the chest Resp Effort & Inspection: normal respiratory effort and able to speak in complete sentences GI Inspection: Yes normal to inspection Neuro General: oriented to person, oriented to place and moves all extremities Cranial nerves: Yes Equal, round and reactive pupils present Cognition (Neuro): normal cognition Extrem Other: General: Yes full ROM and Yes capillary refill normal Psych Appearance: grossly normal Mental Status: mental status grossly normal Affect: normal affect Attitude: cooperative Thought process: Normal thought process present Thought content: Normal thought content present Insight: Good insight present (Psych) Medications Administered Discontinued Medications Generic Name Dose Route Start Last Admin Trade Name Freq PRN Reason Stop Dose Admin Bacitracin 1 appl 07/28/24 10:40 07/28/24 10:48 Bacitracin Oint 0.9 Gm Packet TOPICAL 07/28/24 10:41 1 appl ONCE ONE Administration Protocol Iohexol 100 ml 07/28/24 10:16 07/28/24 10:17 Iohexol 350 Mg/Ml 100 Ml Infus..Btl IV 07/28/24 10:17 85 ml ONCE ONE Administration Medical Decision Making Medical Decision Making [facility] Narrative: Patient is an 84 year old assigned male at with a history of PAD, HTN, hypercholesterolemia, HFpEF, COPD, and DVT on Eliquis presenting to the emergency department today after a fall. Patient's physical exam was as noted in the physical exam portion of this note. Patient's left forearm skin tear was well approximated but unfortunately, the skin was too thin for sutures and steri-strips would not adhere appropriately. Patient's skin tear covered with a non stick gauze + bacitracin, without incident. Patient's LUE PMS was intact prior to and after dressing placement. Patient's blood work was unremarkable. Patient's EKG was unremarkable. Patient's left shoulder, forearm, and humerus x- rays showed no acute process. Patient's CT head, c-spine, chest, and abdomen/pelvis showed no acute process. I explained my physical exam findings as well as all test results to the patient and the patient's . I answered all questions asked by the patient and the patient's . Patient's stated that the patient's dementia / cognitive issues have been worse lately and he has been more agitated / aggressive. Patient's states that she is concerned about bringing him home and would like him to be evaluated. Physical therapy, case management, and CARE evaluations placed. 1523 --> Patient's has requested to now go home and would no longer like CARE team or case management involvement. Observation care revealed the the patient does not meet medical necessity for hospitalization. Final disposition discussed with the patient and the patient's who verbalized understanding and agreement. Patient completed observation care at 1523, total time spent in observation care was 2 hours and 16 minutes. I stressed the importance of the patient taking his medication as directed (either prescribed or as the over the counter packaging recommends). I stressed the importance of the patient following up with his primary care provider. I stressed the importance of the patient returning to the emergency department immediately if his symptoms were to worsen or if he were to develop any dizziness, shortness of breath, difficulty breathing, chest pain, blurry vision, loss of vision, nausea, vomiting, abdominal pain, fever, chills, back pain, or any other complaints. Patient and the patient's verbalized agreement and understanding with this treatment plan and discharge. Differential Diagnosis Differential Diagnoses: The differential diagnosis associated with the presentation includes Fall Trip and fall Intracranial hemorrhage Fracture Admission/Observation Consideration of admission/observation: Escalation of care including admission/observation considered Patient would have been admitted to the hospital had his work up had any findings where hospital admission was appropriate and his clinical presentation warranted hospital admission. Lab Data [facility] Lab Attestation statement: I reviewed the patient's lab results. My interpretation of these results are in the [facility] Rationale portion of this note. 07/28/24 09:49 07/28/24 09:49 Labs: Lab Results 07/28/24 07/28/24 Range/Units 09:49 14:56 WBC 7.9 (4.8-10.8) X10*3/uL RBC 4.18 L (4.60-5.80) X10*6/uL Hgb 13.4 L (14.0-18.0) g/dl Hct 40.8 L (42.0-52.0) % MCV 97.6 (80.0-98.0) fL MCH 32.1 (27.0-33.0) pg MCHC 32.8 (31.0-36.0) g/dl RDW 11.9 (11.0-16.0) % Plt Count 192 (160-400) X10*3/uL MPV 10.6 (9.4-12.4) fL Immature Gran % (Auto) 0.8 H (0.0-0.4) % Neut % (Auto) 68.3 (45-73) % Lymph % (Auto) 13.5 L (20-40) % [place] % (Auto) 11.3 H (2-11) % Eos % (Auto) 5.1 H (0-4) % Baso % (Auto) 1.0 (0-2) % Lymph # (Auto) 1.1 L (1.2-4.9) X10*3/uL [place] # (Auto) 0.9 (0.1-1.2) X10*3/uL Eos # (Auto) 0.4 (0.0-0.4) X10*3/uL Baso # (Auto) 0.1 (0.0-0.2) X10*3/uL Abs Immat Gran (auto) 0.06 H (0.00-0.03) X10*3/uL Absolute Neuts (auto) 5.4 (2.0-8.3) x10*3/uL Absolute Nucleated RBC 0.000 (0.0-0.012) X10*3/uL Nucleated RBC % (auto) 0.0 (0.0-0.2) /100WBC PT 12.0 (10.9-12.4) SEC INR 1.0 (0.9-1.1) APTT 29.4 (26.0-36.8) SEC Sodium 143 (135-145) mmol/L Potassium 4.5 D (3.3-5.1) mmol/L Chloride 107 (96-108) mmol/L Carbon Dioxide 29 (22-29) mmol/L Anion Gap 12 (12-20) BUN 18 H (9-16) mg/dL Creatinine 1.20 (0.5-1.4) mg/dL Estim Creat Clear Calc 47.3 Estimated GFR 58 Random Glucose 77 (60-115) mg/dL Calcium 9.2 (8.4-10.2) mg/dL Magnesium 2.2 (1.6-2.6) mg/dL Total Bilirubin 0.3 (0.0-1.0) mg/dL AST 24 (5-37) U/L ALT 18 (0-40) U/L Alkaline Phosphatase 139 H (39-117) U/L Troponin I High Sens 18.2 (<3.5-35.0) ng/L Total Protein 7.2 (6.5-8.0) g/dL Albumin 3.6 (3.5-5.0) g/dL Urine Color Yellow Urine Appearance Turbid Urine pH 5.0 (5.0-9.0) Ur Specific [place] >= 1.030 H (1.005-1.025) Urine Protein Negative (Neg-Trace) mg/dL Urine Glucose (UA) Negative (Negative) mg/dL Urine Ketones Negative (Negative) mg/dL Urine Blood Negative (Negative) Urine Nitrite Negative (Negative) Ur Leukocyte Esterase Negative (Negative) Independent Interpretation I performed an independent interpretation of an: EKG, Plain X-Ray and CT Scan Interpretation: My interpretation is in agreement with the radiologist's impression of these imaging studies. L Report Number: [id number]: Total DLP = 498.00 mGy-cm EXAMINATION: CT CHEST WITH CONTRAST CLINICAL INFORMATION: Status post fall. Chest pain. COMPARISON: CT angiogram chest dated January 29, 2024. TECHNIQUE: Multidetector volumetric CT imaging of the chest was obtained after the administration of 85 mL of Omnipaque 350 intravenous contrast without immediate adverse reactions. Axial MIP volume rendering provided. Sagittal and coronal reformatted images were obtained. This CT examination was performed using dose optimization techniques as appropriate, variously including the following: *Automated exposure control *Adjustment of mA and/or kV according to patient size (this includes techniques or standardized protocols for targeted exams where dose is matched to indication/reason for exam; i.e. extremities or head) *Use of iterative reconstruction technique DLP: 2600 mGy centimeter. FINDINGS: No pneumothorax. No hemothorax. No pneumomediastinum. No hemomediastinum. Thoracic aorta is intact without IV contrast extravasation. No gross lung contusion. No gross acute cortical disruption in the ribs. The included clavicles are intact. The sternum is intact. The scapula are intact. Multilevel cervical thoracic and upper lumbar spondylosis without acute fracture or gross listhesis. Multilevel syndesmophyte formation and marginal osteophyte formation. Old wedge-shaped compression deformity representing 50% volume loss, L1 vertebra resulting in kyphotic deformity at the thoracolumbar junction. Osteopenia versus osteoporosis. Centrilobular emphysematous changes both lungs. Linear and patchy pulmonary groundglass in the right middle lobe and lung bases. Respiratory airways is patent. No gross bronchiectasis or honeycombing. No aneurysm or dissection, thoracic aorta. Calcified plaques in the thoracic aorta wall and its main branches and the coronary arteries. Tortuosity of the aorta. There is a 13 mm vascular abnormality at the 3:00 position of the proximal suprarenal abdominal aorta. Nonspecific bowel prominent mediastinal lymph nodes. No pericardial effusion. Cystic lesions in the kidneys. No dominant nodules in the included thyroid gland. Right-sided pleural effusion, small volume. CT/CT chest w IV con IMPRESSION: No acute intrathoracic injury. Emphysematous changes with the questionable subsegmental atelectasis versus scarring, right middle lung lobe and lung bases. Coronary artery disease and atherosclerosis disease. Multilevel cervical thoracic and upper lumbar spondylosis. Old traumatic deformity, L1 resulting in kyphosis. 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 Bilateral renal cysts. Fleischner guidelines were followed. Electronically signed by: Sundar Ramos MD 07/28/2024 11:29 AM EST RP Dictated By: Sundar Phillips MD Signed By: Electronically signed by Sundar Cox MD 07/28/24 1129 EXAMINATION: XR SHOULDER 2 OR MORE VIEWS LEFT, XR HUMERUS LEFT HISTORY: pain, injury COMPARISON: There are no prior studies available for comparison. FINDINGS: Four views of the left shoulder and AP and lateral views of the left humerus are submitted. Osseous mineralization is normal. There is no fracture or dislocation. There is mild degenerative change of the glenohumeral joint and moderate degenerative change of the AC joint, with joint space narrowing and osteophyte formation. The humeral head is high riding, articulating with the undersurface of the acromion, consistent with rotator cuff arthropathy. The soft tissues are unremarkable. XR/XR shoulder LT min 2V IMPRESSION: Rotator cuff arthropathy as described. Degenerative changes of the glenohumeral and acromioclavicular joint. No evidence of fracture of the left shoulder or humerus. Electronically signed by: Hari Henson MD 07/28/2024 01:01 PM EST RP Dictated By: Hari Henson MD Signed By: Electronically signed by Hari Henson MD 07/28/24 1301 EXAMINATION: XR SHOULDER 2 OR MORE VIEWS LEFT, XR HUMERUS LEFT HISTORY: pain, injury COMPARISON: There are no prior studies available for comparison. FINDINGS: Four views of the left shoulder and AP and lateral views of the left humerus are submitted. Osseous mineralization is normal. There is no fracture or dislocation. There is mild degenerative change of the glenohumeral joint and moderate degenerative change of the AC joint, with joint space narrowing and osteophyte formation. The humeral head is high riding, articulating with the undersurface of the acromion, consistent with rotator cuff arthropathy. The soft tissues are unremarkable. XR/XR humerus LT IMPRESSION: Rotator cuff arthropathy as described. Degenerative changes of the glenohumeral and acromioclavicular joint. No evidence of fracture of the left shoulder or humerus. Electronically signed by: Hari Henson MD 07/28/2024 01:01 PM EST RP Dictated By: aHri Henson MD Signed By: Electronically signed by Hari Henson MD 07/28/24 1301 EXAMINATION: XR FOREARM 2 VIEWS LEFT HISTORY: pain, injury COMPARISON: There are no prior studies available for comparison. FINDINGS: AP and lateral views of the left forearm are submitted. The bones are osteopenic. There is no fracture or dislocation. The visualized wrist and elbow joint spaces are preserved. The soft tissues are unremarkable. XR/XR forearm LT 2V IMPRESSION: Osteopenia. No evidence of fracture of the left forearm. Electronically signed by: Hari Henson MD 07/28/2024 01:02 PM EST RP Dictated By: Hari Henson MD Signed By: Electronically signed by Hari Henson MD 07/28/24 1302 Report Number: [id number]: Total DLP = 759.00 mGy-cm EXAMINATION: CT HEAD WITHOUT IV CONTRAST HISTORY: fall, head strike. TECHNIQUE: Unenhanced helical CT of the head was performed per standard departmental protocol. Coronal and sagittal reformats of the head were also evaluated. One or more of the following techniques was used for dose reduction: Automated exposure control, adjustment of the mA and/or kV according to patient size, use of iterative reconstruction technique. DLP: 749.30 mGy-cm COMPARISON: Comparison is made with the prior examination dated 08/22/2023. FINDINGS: BRAIN: There is diffuse prominence of the ventricular system and cortical sulci, consistent with atrophy. Periventricular and subcortical white matter hypodensities are noted which are nonspecific, but often seen in the setting of small vessel ischemic disease. There is no mass effect or midline shift. No intra- or extra-axial fluid collections are identified. SINUSES: There is fluid in the right maxillary sinus. A rounded soft tissue density in the left maxillary sinus is consistent with a polyp versus mucous retention cyst. The mastoid air cells and middle ear cavities are well pneumatized. ORBITS: The visualized orbits are unremarkable. BONES/SOFT TISSUES: The extracranial soft tissues are unremarkable. The calvarium is intact. No suspicious lytic or sclerotic lesions. CT/CT head/brain wo IV con IMPRESSION: 1. No acute intracranial abnormality. 2. Fluid in the right maxillary sinus. Electronically signed by: Hari Henson MD 07/28/2024 11:35 AM [facility] [place] Dictated By: Hari Henson MD Signed By: Electronically signed by Hari Henson MD 07/28/24 1135 Report Number: [id number]: Total DLP = 491.00 mGy-cm EXAMINATION: CT CERVICAL SPINE WITHOUT IV CONTRAST HISTORY: fall, head strike. TECHNIQUE: Helical CT of the cervical spine was performed per standard departmental protocol. Coronal and sagittal reformatted images were also evaluated. One or more of the following techniques was used for dose reduction: Automated exposure control, adjustment of the mA and/or kV according to patient size, use of iterative reconstruction technique. DLP: 401.30 mGy-cm COMPARISON: There are no prior studies for comparison. FINDINGS: CERVICAL SPINE: There is straightening of the normal cervical lordosis. The vertebral bodies maintain normal height without evidence of fracture or subluxation. There is diffuse moderate degenerative disc disease with disc space narrowing and osteophyte formation. There is diffuse facet osteoarthritis and uncovertebral joint hypertrophy causing neural foraminal narrowing. Evaluation for disc pathology is limited by lack of intrathecal contrast material, however. BRAIN: The visualized portion of the brain is unremarkable. SINUSES: The visualized paranasal sinuses, mastoid air cells and middle ear cavities are unremarkable. LUNG APICES: There are emphysematous changes at the lung apices. The visualized lung apices are clear. SOFT TISSUES: There is calcification of the internal carotid arteries. CT/CT cervical spine wo IV con IMPRESSION: No evidence of fracture or malalignment of the cervical spine. Degenerative changes as described.. Electronically signed by: Hari Henson MD 07/28/2024 11:40 AM [facility] [place] Dictated By: Hari Henson MD Signed By: Electronically signed by Hari Henson MD 07/28/24 1140 DD/ [id number] Report Number: [id number]: Total DLP = 851.00 mGy-cm EXAMINATION: CT ABDOMEN AND PELVIS WITH CONTRAST CLINICAL INFORMATION: Status post fall. Pain. COMPARISON: None available. TECHNIQUE: Multidetector volumetric images were obtained from the superior aspect of the liver through the pubic symphysis following administration 85 mL of Omnipaque 350 intravenous contrast. Sagittal and coronal reformatted images were obtained on the technologist's workstation. Oral contrast: No This CT examination was performed using dose optimization techniques as appropriate, variously including the following: *Automated exposure control *Adjustment of mA and/or kV according to patient size (this includes techniques or standardized protocols for targeted exams where dose is matched to indication/reason for exam; i.e. extremities or head) *Use of iterative reconstruction technique DLP: 2600 mGy centimeter. FINDINGS: No hemoperitoneum. No pneumoperitoneum. Liver is intact. Pancreas is intact. Spleen is intact. Kidneys are intact. No IV contrast extravasation of the abdominal aorta. No gross hematoma, mesenteric or retroperitoneal. No acute fracture in the axial skeleton, bony pelvis or the coxofemoral joints. Punctate calcifications in the pancreas likely chronic pancreatitis. Cystic lesions both kidneys. No hydronephrosis in either kidney. Numerous diverticula throughout the left hemicolon. No intestinal obstruction pattern. Mixed plaques throughout the abdominal aorta with a tortuous saccular morphology pattern. There is a 13 mm vascular abnormality at the 3:00 position suprarenal abdominal aorta. There is a 20 mm vascular abnormality on the right infrarenal abdominal aorta and 18 mm vascular abnormality in the left infrarenal abdominal aorta. There is a 2 cm diameter of the right common iliac artery with mixed plaques. No aneurysm or dissection in the abdominal aorta. Multilevel thoracolumbar spondylosis. Old wedge-shaped compression deformity L1. Grade 1 anterolisthesis L5-S1 on a degenerative basis. Osteopenia versus osteoporosis. Small right-sided pleural effusion. CT/CT abdomen pelvis w IV con IMPRESSION: No intra-abdominal pelvic organ or vascular injury or acute fracture. 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 Fleischner guidelines were followed. Electronically signed by: Sundar Ramos MD 07/28/2024 12:24 PM [facility] [place] Dictated By: Sundar Phillips MD Signed By: Electronically signed by Sundar Cox MD 07/28/24 1224 I independently interpreted this EKG and am in agreement with the below findings: Vent. Rate: 68 BPM Atrial Rate: 68 BPM P-R Int: 174 ms QRS Dur: 124 ms QT Int: 418 ms P-R-T Axes: 85 -70 9 degrees QTcB Int: 444 ms Sinus rhythm with occasional , and consecutive Premature ventricular complexes and Fusion complexes Left axis deviation Right bundle branch block Inferior infarct, age undetermined DD/ 0948 TD/TT: 07/28/24 0950 Radiology Impression Discussion of test interpretation with radiology: I have reviewed the radiologist's reading. Independent Historian Clinical information obtained from an independent historian. History obtained from or confirmed by: Spouse (Patient's provided additional history and confirmed the history provided by the patient and EMS) and EMS (EMS provided additional history and confirmed the history provided by the patient) Discharge Plan Discharge Clinical Impression: Fall, Skin tear of left forearm without complication Patient Disposition: Home, Self-Care Instructions: Fall Prevention for Older Adults (ED) Additional Instructions: Follow up with your primary care provider. Return to the emergency department immediately if your symptoms worsen or if you develop any dizziness, shortness of breath, difficulty breathing, chest pain, blurry vision, loss of vision, nausea, vomiting, abdominal pain, fever, chills, back pain, or any other complaints. Prescriptions: No Action ipratropium-albuterol 0.5 mg-3 mg(2.5 mg base)/3 mL solution for nebulization 3 ml inhalation Q4-6H PRN (Reason: wheezing) Qty: 180 11RF fluticasone furoate-vilanterol [Breo Ellipta] 100-25 mcg/dose blister with device 1 ea inhalation DAILY Qty: 60 5RF furosemide 20 mg tablet 20 mg PO QAM Qty: 30 2RF Spiriva Respimat 2.5 mcg/actuation mist 2 puff inhalation DAILY Qty: 4 1RF lisinopril 20 mg tablet 20 mg PO DAILY 90 Days Qty: 90 1RF atorvastatin 10 mg tablet 10 mg PO BEDTIME 90 Days Qty: 90 1RF apixaban 5 mg tablet 5 mg PO BID 30 Days Qty: 60 0RF quetiapine 100 mg Tablet 100 mg PO BEDTIME 30 Days Qty: 30 0RF memantine 5 mg Tablet 5 mg PO BID 30 Days Qty: 60 0RF quetiapine 50 mg Tablet 50 mg PO DAILY 30 Days Qty: 30 0RF melatonin 3 mg Tablet 6 mg PO BEDTIME PRN (Reason: Insomnia) Qty: 60 0RF clopidogrel 75 mg tablet 75 mg PO DAILY 30 Days Qty: 30 0RF albuterol sulfate [ProAir HFA] 90 mcg/actuation HFA aerosol inhaler 2 puff inhalation Q6H PRN (Reason: shortness of breath or wheezing) 30 Days Qty: 1 0RF trazodone 50 mg tablet 50 mg PO BEDTIME PRN (Reason: Insomnia) olanzapine [Zyprexa] 2.5 mg tablet 2.5 mg PO QPM PRN (Reason: Agitation/hallucination) Qty: 30 0RF cholecalciferol (vitamin D3) 50 mcg (2,000 unit) capsule 50 mcg PO DAILY 90 Days Qty: 90 3RF amoxicillin 875 mg tablet 875 mg PO Q12H Qty: 14 0RF Referrals: [facility] [place] [facility] [Provider Group] (Call to establish and follow up with a primary care provider. If you already have a primary care provider, please follow up with them.) [facility] [place] [Provider Group] (Call to establish and follow up with a primary care provider. If you already have a primary care provider, please follow up with them.) [facility] [place] [facility] [Provider Group] (Call to establish and follow up with a primary care provider. If you already have a primary care provider, please follow up with them.) Print Language: Swedish
--- NOTE | 2024-07-28 09:41 | ECG_ITS ---
Test Reason : fall Blood Pressure : */* mmHG Vent. Rate : 68 BPM Atrial Rate : 68 BPM P-R Int : 174 ms QRS Dur : 124 ms QT Int : 418 ms P-R-T Axes : 85 -70 9 degrees QTcB Int : 444 ms Sinus rhythm with occasional , and consecutive Premature ventricular complexes and Fusion complexes Left axis deviation Right bundle branch block Inferior infarct , age undetermined Abnormal ECG When compared with ECG of 29-Jan-2024 11:33, No significant changes seen Referred By: Edilia Carrasquillo Electronically Signed By: NICCI ELAINE
[2024-07-28 09:53] LABS: MANUAL DIFF FLAG NO
[2024-07-28 09:54] LABS: Basophils Absolute Auto 0.1 X10*3/uL (0.0-0.2); Eosinophils Absolute Auto 0.4 X10*3/uL (0.0-0.4); Eosinophils Percent Auto 5.1 % (0-4); Hematocrit 40.8 % (42.0-52.0); Hemoglobin 13.4 g/dl (14.0-18.0); Imm Gran Abs Auto 0.06 X10*3/uL (0.00-0.03); Imm Gran Pct Auto 0.8 % (0.0-0.4); Lymphocytes Absolute Auto 1.1 X10*3/uL (1.2-4.9); Lymphocytes Percent Auto 13.5 % (20-40); Mean Corpuscular HGB Conc 32.8 g/dl (31.0-36.0); Mean Corpuscular Hemoglobin 32.1 pg (27.0-33.0); Mean Corpuscular Volume 97.6 fL (80.0-98.0); Mean Platelet Volume 10.6 fL (9.4-12.4); Monocytes Absolute Auto 0.9 X10*3/uL (0.1-1.2); Monocytes Percent Auto 11.3 % (2-11); Neutrophils Absolute Auto 5.4 x10*3/uL (2.0-8.3); Neutrophils Percent Auto 68.3 % (45-73); Platelet Count 192 X10*3/uL (160-400); Red Blood Count 4.18 X10*6/uL (4.60-5.80); Red Cell Distribution Width 11.9 % (11.0-16.0); White Blood Count 7.9 X10*3/uL (4.8-10.8)
[2024-07-28 10:03] LABS: Partial Thromboplastin Time 29.4 SEC (26.0-36.8)
[2024-07-28 10:17] LABS: Alanine Aminotransferase 18 U/L (0-40); Albumin Level 3.6 g/dL (3.5-5.0); Alkaline Phosphatase 139 U/L (39-117); Anion Gap 12 (12-20); Aspartate Amino Transferase 24 U/L (5-37); Bilirubin Total 0.3 mg/dL (0.0-1.0); Blood Urea Nitrogen 18 mg/dL (9-16); Calcium 9.2 mg/dL (8.4-10.2); Carbon Dioxide 29 mmol/L (22-29); Chloride 107 mmol/L (96-108); Creatinine Clr Calc Pharmacy 47.3; Estimated Glomerular Filt Rate 58; Glucose Random 77 mg/dL (60-115); Magnesium 2.2 mg/dL (1.6-2.6); Potassium 4.5 mmol/L (3.3-5.1); Sodium 143 mmol/L (135-145); Total Protein 7.2 g/dL (6.5-8.0)
[2024-07-28] MEDS: iohexoL 350 MG/ML 100 ML INFUS..BTL IV (10:17)
[2024-07-28 10:25] LABS: Troponin-I High Sensitivity 18.2 ng/L (<3.5-35.0)
--- NOTE | 2024-07-28 10:37 | PC.NURSE ---
Patient arrived via ems. Per ems patient fell down approximately 10 stairs. He was trying to get his dog to come inside and tripped causing him to fall backwards and sideways down the basement stairs. EMS reports upon arrival they observed patient laying at the base of the stairs with his back up against the last step. EMS reports they placed a c -collar and then walked patient up the stairs. EMS states patient is not on thinners. Upon arrival to ED patient alert and responsive. 20g iv placed in right ac and brought to CT for imaging. Reports pain to left shoulder. Left arm with multiple skin tears to left lower arm. Skin tears cleansed, bacatracin applied, xeroform placed over skin tears, and covered with non adherant dressings and wrapped. into visit patient, patient heard yelling at - upon this RN entering room stating she is leaving or patient will keep screaming at her. declined to elaborate why. Head of bed flat, c collar remains in place, VSS. PERRLA, no blood noted behind ears
[2024-07-28] MEDS: Bacitracin Oint 0.9 GM PACKET 1 APPL TOPICAL (10:48)
--- NOTE | 2024-07-28 11:25 | PC.NURSE ---
Spoke with who stated that / granddaughter took the dog outside. Patient got up and started yelling at / granddaughter to bring the dog inside and thinks as he was yelling he fell back down the stairs. stating that patient has dementia and lately has been much more agitated over the last few days. states she has been trying to give him medication to calm him down but it has been hard. states that he has not been doing well and she is worried about about having him return home if he continues to be so angry. States does have hx of psych admit for history of same. states she will return to visit around 12:30pm
[2024-07-28 15:05] LABS: Appearance Urine Turbid; Color Urine Yellow; Glucose Urine UA Negative (Negative); Leukocyte Esterase Urine Negative (Negative); Nitrite Urine Negative (Negative); Specific Gravity - Urine >= 1.030 (1.005-1.025); Urine Blood Negative (Negative); Urine Ketones Negative (Negative); Urine Protein Negative (Neg-Trace)
== END 2024-07-28 17:08 | disposition home or self-care (01) ==
PROVIDERS: Physician Assistant Medical; Emergency Provider Emergency Medicine
DX: S51.812A Laceration without foreign body of left forearm, initial encounter (principal); F03.90 Unspecified dementia, unspecified severity, without behavioral disturbance, psychotic disturbance, mood disturbance, and anxiety; J44.9 Chronic obstructive pulmonary disease, unspecified; I10 Essential (primary) hypertension; R26.81 Unsteadiness on feet; M79.632 Pain in left forearm; R51.9 Headache, unspecified; R07.89 Other chest pain; M54.2 Cervicalgia; I45.10 Unspecified right bundle-branch block; R94.31 Abnormal electrocardiogram [ECG] [EKG]; W10.9XXA Fall (on) (from) unspecified stairs and steps, initial encounter; Y93.89 Activity, other specified; Y92.89 Other specified places as the place of occurrence of the external cause; Y99.8 Other external cause status; Z86.718 Personal history of other venous thrombosis and embolism; Z79.01 Long term (current) use of anticoagulants; Z79.899 Other long term (current) drug therapy
CPT/HCPCS: 36415; 70450; 71260; 72125; 73030; 73060; 73090; 74177; 80053; 81003; 83735; 84484; 85025; 85610; 85730; 93005; 97161; 99284; Q9967

== ENCOUNTER → 2024-07-28 09:41 | Outpatient (BNV) | payer MEDICARE, SELFPAY | PROVIDERS: Emergency Provider Emergency Medicine; Visit Provider Internal Medicine | DX: I49.3 Ventricular premature depolarization (principal); I45.10 Unspecified right bundle-branch block; I49.1 Atrial premature depolarization | CPT/HCPCS: 93010 ==

== ENCOUNTER → 2024-07-28 09:41 | Outpatient (BNV) | payer MEDICARE, SELFPAY | PROVIDERS: Emergency Provider Emergency Medicine; Visit Provider Radiology Diagnostic Radiology | DX: R10.9 Unspecified abdominal pain (principal); R07.9 Chest pain, unspecified; S19.9XXA Unspecified injury of neck, initial encounter; S09.90XA Unspecified injury of head, initial encounter; M25.512 Pain in left shoulder; M79.602 Pain in left arm | CPT/HCPCS: 71260; 74177 ==

== ENCOUNTER 2024-08-02 09:17 | Outpatient (AMB) | payer MEDICARE, SELFPAY ==
[2024-08-02 09:37] VITALS: BP 116/66; PULSE 77; TEMP 36.6; O2SAT 100; BMI 23.8
--- NOTE | 2024-08-02 09:37 | MHC.OFFWIV ---
Intake Vital Signs 08/02/24 09:37 Height 5 ft 10 in Weight 166 lb BMI 23.8 BP 116/66 Blood Pressure Location Rt brachial Position Sitting Pulse 77 Pulse Source Pulse Oximeter Temp 97.9 F Temp Source Oral Pulse Oximetry (%) 100 Oxygen Delivery Method Simple Mask Oxygen Flow Rate 3 Intake Visit Reasons: EP Injury & pain on RT arm Intake Note: pt is here for injury to arm, xray at ER states there was no broken bones but is concerned it doesnt look good Patient Tobacco Use Status: Former Tobacco user Allergies No Known Allergies Allergy (Mild, Verified 08/02/24 09:37) NONE cats dogs ragweed dust pollen Allergy (Unknown, Uncoded 07/28/24 09:59) Unknown Do you need a note to return to daycare/school/sports/work: Yes HPI HPI Comments History of Present Illness Details History of Present Illness - The patient is an 84-year-old male presenting with follow-up care after a fall. - Approximately five days ago, the patient fell down 11 stairs after attempting to open the back door and fell backwards. - The patient reports no head injury, loss of consciousness, dizziness, chest pain or lightheadedness before the fall. - Patients called 911 and he was brought to [facility] [place] [facility]. -Patient is on eliquis - Emergency room imaging (head CT, chest/abdomen/pelvis CT) showed no acute issues, and blood work was unremarkable. - Specifically, the patient has a left forearm skin tears and hematomas and bruises, which has been treated with nonstick gauze and Bacitracin. - He reports full ROM on LUE and his has been cleaning his wounds daily and applying bandages daily. Reports no drainage or warmth of LUE skin tears. - Denies any chest pain, headaches, dizzyness, mental status changes, confusion, sob or lightheadedness since the fall. Physical Exam General: Cooperative, healthy appearing, comfortable, no acute distress and well developed Orientation: Patient oriented x3 Limitations: No limitations Head: Normal to inspection Ears: Hearing grossly normal bilaterally Nose: Normal external nose present Face and sinus: Normal facial exam, wearing NC Eyes: Appearance normal, both eyes and all related structures Neck: Normal visual inspection and Yes full ROM Respiratory: Normal respiratory effort and able to speak in complete sentences. Skin:as below Neuro: Patient oriented x3 Extremities: Full range of motion in left arm, elbow, wrist and fingers. multiple ecchymosis and large hematoma on left forearm, skin tears as noted in picture, no warmth or drainage noted. [facility] Medical History Insomnia Pure hypercholesterolemia Essential hypertension Pneumothorax after biopsy Hypoxemia COPD (chronic obstructive pulmonary disease) Pulmonary emphysema Osteopenia Hyperparathyroidism Osteoporosis Vitamin D deficiency Multinodular thyroid Surgical History Hx of prostatectomy Hx of hernia repair Family History Father No problems noted. Mother No problems noted. 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: sitter Patient Tobacco Use Status: Former Tobacco user Tobacco use type: Cigarette e-Cigarette/Vaping Use: Never Used Second Hand Smoke Exposure: Yes Advance Directives Date on File: 02/28/23 service: No Current occupational status: retired Sexual orientation: Straight/Heterosexual Cognitive needs: Yes Hearing needs: No Vision needs: No Review of Systems Const All systems reviewed & are unremarkable except as noted in HPI and below Neuro Denies Abnormal speech present Physical Exam Vital Signs: Last Vital Signs Temp 97.9 F 08/02/24 09:37 Pulse 77 08/02/24 09:37 BP 116/66 08/02/24 09:37 Pulse Ox 100 08/02/24 09:37 Oxygen Delivery Method Simple Mask 08/02/24 09:37 BMI result Body Mass Index 23.8 Neuro Cranial nerves: Yes CN's II-XII intact bilaterally Cognition (Neuro): normal cognition Speech: No Abnormal speech present Gait exam (Neuro): Normal gait present Assessment & Plan Assessment & Plan (1) Fall (on) (from) other stairs and steps, subsequent encounter: Code(s): W10.8XXD - Fall (on) (from) other stairs and steps, subsequent encounter Plan: To address the fall injury and left forearm skin tear, continued wound care with daily saline wash and use of topical Bacitracin is advised. I recommend the injury be kept covered with nonstick gauze during the day or if going out in public, noting it does not appear infected at this time. Can be left open to air at night. The patient should be vigilant for any signs of infection and change the dressing daily, which supplies allow. Considering his use of an anticoagulant, careful observation for potential complications like neurological changes is stressed, with immediate care advised if symptoms occur. The patient is well-informed about monitoring for late-onset bleeding, given his blood thinner usage. Gave pt supplies for daily dressing changes for 6 days. Patient was informed and verbally consented to the use of an ambient scribe for clinic note documentation during this visit. (2) Skin tear of forearm without complication: Code(s): S51.819A - Laceration without foreign body of unspecified forearm, initial encounter Qualifiers: Encounter type: subsequent encounter Laterality: left Qualified Code(s): S51.812D - Laceration without foreign body of left forearm, subsequent encounter Plan: as above (3) Hematoma of arm: Code(s): S40.029A - Contusion of unspecified upper arm, initial encounter Qualifiers: Encounter type: subsequent encounter Laterality: left Qualified Code(s): S40.022D - Contusion of left upper arm, subsequent encounter Plan: as above Coding Level of Care Code New Pt Level 4 (26654) Diagnoses Fall (on) (from) other stairs and steps, subsequent encounter W10.8XXD Skin tear of left forearm without complication, subsequent encounter S51.812D Encounter type: subsequent encounter Laterality: left Contusion of left upper extremity, subsequent encounter S40.022D Encounter type: subsequent encounter Laterality: left
== END 2024-08-02 10:10 | disposition home or self-care (01) ==
PROVIDERS: Visit Provider Physician Assistant
DX: S51.812A Laceration without foreign body of left forearm, initial encounter (principal); S40.022A Contusion of left upper arm, initial encounter; W10.8XXA Fall (on) (from) other stairs and steps, initial encounter

== ENCOUNTER → 2024-08-02 09:17 | Outpatient (BNVA) | payer MEDICARE, SELFPAY | DX: S51.812D Laceration without foreign body of left forearm, subsequent encounter (principal); S40.022D Contusion of left upper arm, subsequent encounter; W10.8XXD Fall (on) (from) other stairs and steps, subsequent encounter | CPT/HCPCS: 99212 ==

== ENCOUNTER 2024-10-18 13:24 | Outpatient (AMB) | payer MEDICARE, SELFPAY ==
[2024-10-18 13:29] VITALS: BP 130/76; PULSE 88; O2SAT 99; BMI 25.1
--- NOTE | 2024-10-18 13:29 | MHC.OFFVIS ---
Vital Signs 10/18/24 13:29 Height 5 ft 10 in Weight 175 lb 4.28 oz BMI 25.1 BP 130/76 Blood Pressure Location Lt brachial Position Sitting Pulse 88 Pulse Source Pulse Oximeter Pulse Oximetry (%) 99 Oxygen Delivery Method Nasal Cannula Oxygen Flow Rate 3 Intake Visit Reasons: Emphysema Allergies No Known Allergies Allergy (Mild, Verified 10/18/24 13:51) NONE cats dogs ragweed dust pollen Allergy (Unknown, Uncoded 10/18/24 13:51) Unknown Medication List - Last Reconciled 10/18/24 by Cedric Sarabia MD albuterol sulfate 90 mcg/actuation (ProAir HFA) 2 puffs inhalation Q6H PRN 30 days apixaban 5 mg PO BID 30 days atorvastatin 10 mg PO BEDTIME 90 days cholecalciferol (vitamin D3) 50 mcg PO DAILY 90 days clopidogrel 75 mg PO DAILY 30 days fluticasone furoate-vilanterol 100-25 mcg/dose (Breo Ellipta) 1 ea inhalation DAILY furosemide 20 mg PO QAM ipratropium-albuterol 0.5 mg-3 mg(2.5 mg base)/3 mL 3 mL inhalation Q4-6H PRN lisinopril 20 mg PO DAILY 90 days melatonin 6 mg (2 x 3 mg) PO BEDTIME PRN memantine 5 mg PO BID 30 days olanzapine (Zyprexa) 2.5 mg PO QPM PRN quetiapine mg PO quetiapine mg PO DAILY tiotropium bromide 2.5 mcg/actuation (Spiriva Respimat) 2 puffs inhalation DAILY trazodone 50 mg PO BEDTIME PRN Do you need a note to return to daycare/school/sports/work: No HPI HPI Emphysema: Details: THIS 84 YEARS OLD GENTLEMAN IS HERE FOR 6 MONTHS FOLLOW-UP. HIS COPD HAS STAYED VERY STABLE AND THERE HAS BEEN NO CHEST. INFECTION IN THE LAST 6 MONTHS CONTINUES TO USE O2 3 L/MINUTE . ALMOST 24 HOURS A DAY HE DENIES COUGH OR WHEEZING, USES BREO 100-25 1 INHALATION DAILY, AND DUONEB UPDRAFT ONCE A DAY IN THE MORNING . [facility] Medical History Insomnia Pure hypercholesterolemia Essential hypertension Pneumothorax after biopsy Hypoxemia COPD (chronic obstructive pulmonary disease) Pulmonary emphysema Osteopenia Hyperparathyroidism Osteoporosis Vitamin D deficiency Multinodular thyroid Surgical History Hx of prostatectomy Hx of hernia repair Family History Father No problems noted. Mother No problems noted. 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: sitter Patient Tobacco Use Status: Former Tobacco user Tobacco use type: Cigarette e-Cigarette/Vaping Use: Never Used Second Hand Smoke Exposure: Yes Advance Directives Date on File: 02/28/23 service: No Current occupational status: retired Sexual orientation: Straight/Heterosexual Cognitive needs: Yes Hearing needs: No Vision needs: No Review of Systems Const All systems reviewed & are unremarkable except as noted in HPI and below Reports weakness (MINIMAL RESIDUAL WEAKNESS OF THE LEFT UPPER EXTREMITY) Eyes Reports no additional complaints ENT Reports no additional complaints Card Denies chest pain, Denies irregular heart rhythm, Denies leg edema and Reports dyspnea on exertion (MILD) Resp Reports as per HPI and Reports dyspnea on exertion (MILD) GI Reports no additional complaints Reports no additional complaints Musc Reports abnormal gait (HE USES WALKER,) and Reports back pain Skin/Breast Reports rash (HE HAS HAD NONSPECIFIC ERYTHEMATOUS RASH ON HIS BACK ) Neuro Reports abnormal gait (HE USES WALKER,) and Reports weakness (MINIMAL RESIDUAL WEAKNESS OF THE LEFT UPPER EXTREMITY) Psych Reports anxiety (MILD, HAS TO USE ALPRAZOLAM ONCE IN A WHILE) Endo Reports no additional complaints Isidoro/Lymph Reports no additional complaints Aller/Immun Reports no additional complaints Physical Exam Vital Signs: Last Vital Signs Pulse 88 10/18/24 13:29 BP 130/76 10/18/24 13:29 Pulse Ox 99 10/18/24 13:29 Oxygen Delivery Method Nasal Cannula 10/18/24 13:29 Oxygen Flow Rate 3 10/18/24 13:29 BMI result Body Mass Index 25.1 Const General: comfortable, no acute distress, alert and awake Orientation/consciousness: patient oriented x3 HEENT Head: Yes normal to inspection General nose exam: No nasal polyps present and No nasal discharge present Face and sinus: Yes sinuses nontender Mouth: oropharynx normal Throat: Yes posterior oropharynx normal Eyes General: appearance normal, both eyes and all related structures Neck Neck: Yes normal visual inspection, Yes no lymphadenopathy, Yes trachea midline and Yes no JVD Thyroid: Thyroid normal Chest Chest palpation & inspection: normal inspection of the chest, normal palpation of entire chest wall and no tenderness Resp Other: PERCUSSION NOTE IS HYPER-RESONANT, BREATH SOUNDS ARE DISTANT WITH PROLONGED EXPIRATORY PHASE BUT EQUAL ON BOTH SIDES. NO AUDIBLE WHEEZES OR CREPITATIONS. Cardio Palpation: normal PMI Rate: regular rate Rhythm: regular rhythm Heart sounds: no gallops and no murmurs GI Palpation (GI): Soft to palpation, nontender, No hepatosplenomegaly present and no masses Auscultation: normal bowel sounds Back/Spine/Pelvis Thoracic/Lumbar Spine: thoracic and lumbar spine normal to inspection and thoraco-lumbar ROM limited Skin General skin exam: no rashes or lesions noted and other (HE HAS MULTIPLE ERYTHEMATOUS DISC I ADDED AREAS ON THE WHOLE BACK) Neuro General: patient oriented x3, No gait normal (GAIT IMPAIRED DUE TO BACK PAIN, AND HE USES WALKER) and no focal motor deficits Cranial nerves: Yes CN's II-XII intact bilaterally Extrem General: Yes normal to inspection, Yes no clubbing, cyanosis or edema and Yes no calf tenderness Psych Appearance: grossly normal and well kempt Speech and movement: Normal speech and movement present Assessment & Plan Assessment & Plan (1) COPD (chronic obstructive pulmonary disease): Comment: He does have rather severe degree of obstructive airway disorder. Was treated for an acute exacerbation in February 2023 and in 2023 . Now he has remained relatively stable . He has had no recurrent respiratory infections since the July 2023 Code(s): J44.9 - Chronic obstructive pulmonary disease, unspecified Category: Medical Qualifiers: COPD type: emphysema Emphysema type: unspecified Qualified Code(s): J43.9 - Emphysema, unspecified Plan: CONTINUE TO USE BREO 100-251 INHALATION DAILY. IPRATROPIUM-ALBUTEROL SOLUTION IN THE NEBULIZER Q 6 HOURS P.R.N.. AND HE HAS BEEN USING MOSTLY ONCE A DAY IN THE MORNING. (2) Chronic respiratory failure with hypoxia: Comment: Patient has chronic hypoxemia. Had 6 minutes walk test today, and confirmed that he does need O2 2 L/minute at rest and 3 L/minute when walking Code(s): J96.11 - Chronic respiratory failure with hypoxia Category: Medical Plan: ADVISED TO KEEP ON USING O2 2 L/MINUTE AT HOME WHEN RESTING AND DURING SLEEP AND 3 L/MINUTE WHEN OUTDOORS EXERCISING. Coding Level of Care Code Est Pt Level 3 (52459) Diagnoses Pulmonary emphysema, unspecified emphysema type J43.9 COPD type: emphysema Emphysema type: unspecified Chronic respiratory failure with hypoxia J96.11
== END 2024-10-18 13:52 | disposition home or self-care (01) ==
LOC: HO.HPS 13:25
PROVIDERS: PCP Internal Medicine; Visit Provider Internal Medicine
DX: J43.9 Emphysema, unspecified (principal); J96.11 Chronic respiratory failure with hypoxia
CPT/HCPCS: 99213

== ENCOUNTER → 2024-10-18 13:24 | Outpatient (BNVA) | payer MEDICARE, SELFPAY | PROVIDERS: PCP Internal Medicine; Visit Provider Internal Medicine | DX: J43.9 Emphysema, unspecified (principal); J96.11 Chronic respiratory failure with hypoxia; Z99.81 Dependence on supplemental oxygen; Z87.891 Personal history of nicotine dependence | CPT/HCPCS: 99212 ==

== ENCOUNTER 2024-11-01 08:55 | Outpatient (AMB) | payer MEDICARE, SELFPAY ==
--- NOTE | 2024-11-01 09:02 | MHC.OFFWIV ---
Intake Vital Signs 11/01/24 09:03 Weight 174 lb BP 122/80 Blood Pressure Location Lt brachial Position Sitting Pulse 60 Pulse Source Pulse Oximeter Pulse Oximetry (%) 96 Oxygen Delivery Method Nasal Cannula Intake Visit Reasons: EP- Both ears in pain/ wax build up Intake Note: Patient here for difficulty hearing that has been present for about 1 week. Patient Tobacco Use Status: Former Tobacco user Allergies No Known Allergies Allergy (Mild, Verified 11/01/24 09:06) NONE cats dogs ragweed dust pollen Allergy (Unknown, Uncoded 11/01/24 09:06) Unknown Do you need a note to return to daycare/school/sports/work: No HPI HPI Comments History of Present Illness Details Patient is an 84yo M who presents with ear blockage COUNTS INCLUDE 234 BEDS AT THE [facility] Medical History Insomnia Pure hypercholesterolemia Essential hypertension Pneumothorax after biopsy Hypoxemia COPD (chronic obstructive pulmonary disease) Pulmonary emphysema Osteopenia Hyperparathyroidism Osteoporosis Vitamin D deficiency Multinodular thyroid Surgical History Hx of prostatectomy Hx of hernia repair Family History Father No problems noted. Mother No problems noted. 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: sitter Patient Tobacco Use Status: Former Tobacco user Tobacco use type: Cigarette e-Cigarette/Vaping Use: Never Used Second Hand Smoke Exposure: Yes Advance Directives Date on File: 02/28/23 service: No Current occupational status: retired Sexual orientation: Straight/Heterosexual Cognitive needs: Yes Hearing needs: No Vision needs: No Review of Systems Const Denies chills and Denies fever(s) Eyes Denies change in vision ENT Denies ear discharge, Denies otalgia, Denies nasal congestion, Denies sore throat and Reports other (bilateral hearing loss with cerumen issue) Resp Reports other (on oxygen 24-7 NC) Physical Exam Vital Signs: Last Vital Signs Pulse 60 11/01/24 09:03 BP 122/80 11/01/24 09:03 Pulse Ox 96 11/01/24 09:03 Oxygen Delivery Method Nasal Cannula 11/01/24 09:03 General: Non-toxic, NAD. Speaking full sentences. Skin: Warm dry throughout Eye: EOMI HENT: R canal complete cerumen occlusion. L canal + small creumen impaction but able to see TM. Post procedure both canals clear. TM non-erythematous, non-bulging. No TM perforation or hemotympanum noted. Neurology: Alert. No aphasia Psych: Good mood and affect Office Procedures Cerumen Removal Details: verbal consent obtained. L canal cleared with curette. R canal cleared with curette and irrigation. No TM perforation. Pt tolerated well. No signs of infection From which ear canal was the cerumen removed: bilateral Removal: irrigation and otoscope w/curette Notes: patient tolerated procedure well, no complications and ear canal clear [id number] Irrigation/Lavage Assessment & Plan Assessment & Plan (1) Cerumen impaction: Code(s): H61.20 - Impacted cerumen, unspecified ear Qualifiers: Laterality: bilateral Qualified Code(s): H61.23 - Impacted cerumen, bilateral Plan: Patient seen and evaluated. Informed them of OTC debrox Patient and gave verbal understanding and had no additional questions or concerns at time of discharge All questions answered Coding Level of Care Code Est Pt Level 3 (24613) Diagnoses Bilateral impacted cerumen H61.23 Laterality: bilateral CPT Codes Office Procedure - CPT: 92552-Mis Irrigation/Lavage ([id number])
[2024-11-01 09:03] VITALS: BP 122/80; PULSE 60; O2SAT 96
== END 2024-11-01 09:36 | disposition home or self-care (01) ==
PROVIDERS: PCP Internal Medicine; Visit Provider Physician Assistant
DX: H61.23 Impacted cerumen, bilateral (principal)

== ENCOUNTER → 2024-11-01 08:55 | Outpatient (BNVA) | payer MEDICARE, SELFPAY | PROVIDERS: PCP Internal Medicine; Visit Provider Physician Assistant | DX: H61.23 Impacted cerumen, bilateral (principal) | CPT/HCPCS: 69210; 99212 ==

== ENCOUNTER 2025-01-11 11:27 | Outpatient (AMB) | payer MEDICARE, SELFPAY ==
--- NOTE | 2025-01-11 11:28 | A.OFFPC_ITS ---
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 Required: No Accompanied by: Self / Same As Patient Allergies No Known Allergies Allergy (Mild, Verified 01/11/25 11:54) NONE cats dogs ragweed dust pollen Allergy (Unknown, Uncoded 01/11/25 11:54) Unknown Medication List - Last Reconciled 01/11/25 by Alex Harvey MD albuterol sulfate 90 mcg/actuation (ProAir HFA) 2 puffs inhalation Q6H PRN 30 days apixaban 5 mg PO BID 30 days atorvastatin 10 mg PO BEDTIME 90 days cholecalciferol (vitamin D3) 50 mcg PO DAILY 90 days fluticasone furoate-vilanterol 100-25 mcg/dose (Breo Ellipta) 1 ea inhalation DAILY furosemide 20 mg PO QAM ipratropium-albuterol 0.5 mg-3 mg(2.5 mg base)/3 mL 3 mL inhalation Q4-6H PRN lisinopril 20 mg PO DAILY 90 days melatonin 6 mg (2 x 3 mg) PO BEDTIME PRN memantine 5 mg PO BID 30 days olanzapine (Zyprexa) 2.5 mg PO QPM PRN quetiapine mg PO quetiapine mg PO DAILY tiotropium bromide 2.5 mcg/actuation (Spiriva Respimat) 2 puffs inhalation DAILY trazodone 50 mg PO BEDTIME PRN Tobacco use date assessed: 01/11/25 Fall risk assessment: 1 Fall in past year Last assessed Fall Risk: 01/11/25 Dental Screening Dental Screen Date: 01/11/25 Did you have a dental visit in the last 12 months?: Yes Did you have a dental problem in the last 6 months where you did not have access to dental care?: No Was dental information given to patient?: Patient has dentist HPI 4 month f/u HPI Details Patient comes in today for his follow up visit States that he currently feels okay He denies any headaches or dizziness Denies any chest pains, no increased shortness of breath although he keeps his oxygen on at all times No nausea/vomiting, no abdominal pain No change in bowel habits noted PFSH Medical History Insomnia Pure hypercholesterolemia Essential hypertension Pneumothorax after biopsy Hypoxemia COPD (chronic obstructive pulmonary disease) Pulmonary emphysema Osteopenia Hyperparathyroidism Osteoporosis Vitamin D deficiency Multinodular thyroid Surgical History Hx of prostatectomy Hx of hernia repair Family History Father No problems noted. Mother No problems noted. 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: alesiater Patient Tobacco Use Status: Former Tobacco user Tobacco use type: Cigarette e-Cigarette/Vaping Use: Never Used Second Hand Smoke Exposure: Yes Advance Directives Date on File: 02/28/23 service: No Current occupational status: retired Sexual orientation: Straight/Heterosexual Cognitive needs: Yes Hearing needs: No Vision needs: No Questionnaire PHQ-9 Over the last 2 weeks, how often have you been bothered by any of the following problems? 1. Little interest or pleasure in doing things: several days 2. Feeling down, depressed, or hopeless: not at all 3. Trouble falling or staying asleep, or sleeping too much: not at all 4. Feeling tired or having little energy: more than half the days 5. Poor appetite or overeating: not at all 6. Feeling bad about yourself - or that you are a failure or have let yourself or your family down: not at all 7. Trouble concentrating on things, such as reading the newspaper or watching television: not at all 8. Moving or speaking so slowly that other people could have noticed. Or the opposite - being so fidgety or restless that you have been moving around a lot more than usual: not at all 9. Thoughts that you would be better off or of hurting yourself in some way: not at all Total score: 3 Depression Screening Interpretation: Positive Depression Screening Follow-up: Follow-up Visit Requested Depression Screening Done: Yes 32923 - PHQ-9 Billing: Yes Source: Developed by Drs. Hari Fraser, Pascual Prince and colleagues, with an educational lynda from [employer]. Thrive Questionnaire Date Thrive assessed: 01/11/25 I am a: Patient What is your living situation today?: I have a steady place to live Within the past 12 months, did the food you bought not last and you didn't have the money to get more?: Never true Within the past 12 months, did you worry whether your food would run out before you got money to buy more?: Never true Do you have trouble paying for medicines?: No Do you have trouble getting transportation to medical appointments?: No Do you have trouble paying your heating and electricity bill?: No Do you have trouble taking care of your child, family member or friend?: No Do you have trouble with day-to-day activities such as bathing, preparing meals, shopping, managing finances, etc.?: No Are you currently unemployed and looking for a job?: Yes Are you interested in more education?: No Please select the resources that you would like help with: None Currently or been in a relationship where the following occur: No concerns reported THRIVE Score: 0 AUDIT C Alcohol Use Questionnaire (AUDIT-C) 1. How often do you have a drink containing alcohol?: Never 3. How often do you have six or more drinks on one occasion?: Never Total Score: 0 Score Reviewed/Action Taken: Yes RAMONA-7 AMB Questionnaire RAMONA-7 Date RAMONA - 7 assessed: 01/11/25 Feeling nervous, anxious, or on edge: 2 = More than half the days Not being able to stop or control worryin = Not at all Worrying too much about different things: 0 = Not at all Trouble relaxin = Not at all Being so restless that it is hard to sit still: 0 = Not at all Becoming easily annoyed or irritable: 2 = More than half the days Feeling afraid as if something awful might happen: 0 = Not at all Total RAMONA-7 score (0-4 normal; 5-9 mild; 10-14 moderate; 15-21 severe): 4 Source: Developed by Cally Pires Kurt Kroenke and colleagues, with an educational lynda from [employer]. Review of Systems Const Denies chills, Reports fatigue, Denies fever(s) and Denies headache(s) ENT Denies dysphagia, Denies dizziness, Denies otalgia, Denies headache(s), Denies neck pain, Denies odynophagia and Denies sore throat Card Denies chest pain, Denies lightheadedness, Denies palpitations and Reports dyspnea on exertion (mild - has oxygen on) Resp Denies cough, Reports dyspnea on exertion (mild - has oxygen on) and Denies wheezing GI Denies abdominal pain, Denies constipation, Denies dysphagia, Denies heartburn, Denies diarrhea, Denies nausea, Denies odynophagia and Denies vomiting Denies dysuria, Denies nocturia and Denies urinary frequency Musc Denies back pain and Denies neck pain Skin/Breast Denies rash Neuro Denies dizziness and Denies headache(s) Endo Reports fatigue and Denies palpitations Aller/Immun Denies wheezing Physical exam (Primary Care) Vital Signs: Last Vital Signs Pulse 73 01/11/25 11:29 BP 142/82 H 01/11/25 11:29 Pulse Ox 96 01/11/25 11:29 Oxygen Delivery Method Nasal Cannula 01/11/25 11:29 BMI result Body Mass Index 24.6 Tobacco/Smoking Status: Tobacco use Status Tobacco use date assessed 01/11/25 01/11/25 11:30 Patient Tobacco Use Status Former Tobacco user 01/11/25 11:30 Tobacco use type Cigarette 01/11/25 11:30 e-Cigarette/Vaping Use Never Used 01/11/25 11:30 PHQ-9: PHQ-9 Score PHQ-9: Total score 3 01/11/25 11:55 Depression Screening Interpretation: Positive Depression Screening Follow-up: Follow-up Visit Requested Thrive Assessment: Date of Thrive Assessment Date Thrive assessed 01/11/25 01/11/25 11:30 Currently or been in a relationship where the following occur: No concerns reported Const General: no acute distress and alert HENMT Throat: Yes posterior oropharynx normal and Yes tonsils normal (no TP congestion noted) Neck Neck: Yes no lymphadenopathy and Yes supple Thyroid: Thyroid normal Resp Other: (+) oxygen via nasal cannula at 3 LPM Auscultation: no crackles, no rales, rhonchi (occasional) throughout, no wheezes and diminished lung sounds bilateral Cardio Rate: regular rate Rhythm: regular rhythm Heart sounds: no murmurs GI Palpation (GI): Soft to palpation and nontender Auscultation: normal bowel sounds Extrem General: No clubbing, No cyanosis and Yes edema (1+ bipedal edema) Coding Level of Care Code Est Pt Level 4 (14314) Diagnoses Chronic respiratory failure with hypoxia J96.11 Acute deep vein thrombosis (DVT) of other specified vein of both lower extremities I82.493 Affected thrombotic vein of extremity: other lower extremity vein Chronicity: acute DVT location: lower extremity Laterality: bilateral Bilateral lower extremity edema R60.0 Essential hypertension I10 Pure hypercholesterolemia E78.00 Vitamin D deficiency E55.9 Hyperparathyroidism E21.3 Multinodular thyroid E04.2 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 Had 6 minutes walk test today, and confirmed that he does need O2 2 L/minute at rest and 3 L/minute when walking Code(s): J96.11 - Chronic respiratory failure with hypoxia Category: Medical Plan: Continue Breo Ellipta 100-25 mcg 1 inhalation QD, Spiriva Respimat 2.5 mcg 2 inhalations QD and Albuterol HFA 1 to 2 inhalations Q 6 hours PRN He also does Duoneb updrafts at home every 4 to 6 hours PRN Patient is currently on oxygen inhalation at 3 LPM 18/[address] Sarabia as scheduled for continuing pulmonary follow up and management (2) DVT (deep venous thrombosis): Code(s): I82.409 - Acute embolism and thrombosis of unspecified deep veins of unspecified lower extremity Category: Medical Qualifiers: Affected thrombotic vein of extremity: other lower extremity vein Chronicity: acute DVT location: lower extremity Laterality: bilateral Qualified Code(s): I82.493 - Acute embolism and thrombosis of other specified deep vein of lower extremity, bilateral Plan: Venous doppler of both lower extremity done at the ER in January 2024 revealed (+) acute occlusive thrombus within the distal right popliteal vein and non- occlusive thrombus within the proximal right popliteal vein with no evidence of left-sided deep venous thrombosis He also had a left superficial femoral artery proximal and mid occlusion with reconstitution of the distal segment via collateral Continue Apixaban 5 mg BID Follow up with vascular surgery as scheduled (3) Bilateral lower extremity edema: Code(s): R60.0 - Localized edema Category: Medical Plan: Continue Furosemide 20 mg Q AM (4) Essential hypertension: Code(s): I10 - Essential (primary) hypertension Category: Medical Plan: Reinforced low sodium diet - goal is systolic BP of at least 140 mm or less Continue Lisinopril 20 mg QD (5) Pure hypercholesterolemia: Code(s): E78.00 - Pure hypercholesterolemia, unspecified Category: Medical Plan: Reinforced low cholesterol diet Continue Atorvastatin 10 mg QD Will recheck his labs and fasting lipids in 4 months for follow up (6) Vitamin D deficiency: Code(s): E55.9 - Vitamin D deficiency, unspecified Category: Medical Plan: Continue Vitamin D3 2000 units QD (7) Hyperparathyroidism: Code(s): E21.3 - Hyperparathyroidism, unspecified Category: Medical Plan: Patient's labs were reportedly consistent with normocalcemic hyperparathyroidism when he was last seen by endocrinology in 2019 His DEXA at the time revealed (+) osteopenia of the hip and the plan then was to repeat his labs and also check a 24 hour urine collection as well as a DEXA of the forearm but patient appears to have been lost to follow up since and also has not had a bone density done in the past 5 years His PTH level was elevated at 142 on his recent labs but his Vitamin D level was also low Will recheck his PTH level when his Vitamin D deficiency is corrected and if it is still elevated at the time, will consider referral for possible parathyroidectomy (8) Multinodular thyroid: Code(s): E04.2 - Nontoxic multinodular goiter Category: Medical Plan: He has a multinodular thyroid and used to see endocrinology but does not appear to have been back to see endocrinology since 2019 His 1.2 cm nodule was found to be spongiform thus no FNA biopsy was performed He has been advised that thyroid nodules are typically slow growing, and it would not be unreasonable to not do any further surveillance US Patient elected to proceed with yearly surveillance US and to reassess for any changes to his nodules that might warrant FNA biopsy but it does not look like he had any follow up thyroid US since 2020 (9) Multifactorial dementia: Code(s): F03.90 - Unspecified dementia, unspecified severity, without behavioral disturbance, psychotic disturbance, mood disturbance, and anxiety Category: Medical Plan: Continue Memantine 5 mg BID Continue Quetiapine 50 mg QD and 100 mg Q HS for agitation Follow up with psychiatry (Dr. John Pandey in [place]) as scheduled (10) Insomnia: Code(s): G47.00 - Insomnia, unspecified Category: Medical Qualifiers: Insomnia type: unspecified Qualified Code(s): G47.00 - Insomnia, unspecified Plan: Sleep hygiene reinforced Continue Melatonin 6 mg Q HS PRN and Trazodone 50 mg Q HS PRN Plan Follow up in 4 months Orders: Orders Complete Blood Count Auto Diff 4 Months D64.9 - Anemia, unspecified Lipid Panel 4 Months E78.00 - Pure hypercholesterolemia, unspecified TSH reflex Free T4 4 Months E78.00 - Pure hypercholesterolemia, unspecified UA CC w/rflx Micro + Cult 4 Months R30.0 - Dysuria B Type Natriuretic Peptide 4 Months I50.9 - Heart failure, unspecified Comprehensive [place]. Panel Fast 4 Months E78.00 - Pure hypercholesterolemia, unspecified Vitamin D 25-OH Total 4 Months E55.9 - Vitamin D deficiency, unspecified Hemoglobin A1c 4 Months R73.9 - Hyperglycemia, unspecified Vitamin B12 and Folate 4 Months E53.8 - Deficiency of other specified B group vitamins
[2025-01-11 11:29] VITALS: BP 142/82; PULSE 73; O2SAT 96; BMI 24.6
== END 2025-01-11 12:05 | disposition home or self-care (01) ==
LOC: HO.HMCH 11:28
PROVIDERS: PCP Internal Medicine; Visit Provider Internal Medicine
DX: J96.11 Chronic respiratory failure with hypoxia (principal); I82.493 Acute embolism and thrombosis of other specified deep vein of lower extremity, bilateral; F03.90 Unspecified dementia, unspecified severity, without behavioral disturbance, psychotic disturbance, mood disturbance, and anxiety; R60.0 Localized edema; I10 Essential (primary) hypertension; E78.00 Pure hypercholesterolemia, unspecified; E55.9 Vitamin D deficiency, unspecified; E21.3 Hyperparathyroidism, unspecified; E04.2 Nontoxic multinodular goiter; G47.00 Insomnia, unspecified

== ENCOUNTER → 2025-01-11 11:27 | Outpatient (BNVA) | payer MEDICARE, SELFPAY | PROVIDERS: PCP Internal Medicine; Visit Provider Internal Medicine | DX: J96.11 Chronic respiratory failure with hypoxia (principal); I82.493 Acute embolism and thrombosis of other specified deep vein of lower extremity, bilateral; R60.0 Localized edema; I10 Essential (primary) hypertension; E78.00 Pure hypercholesterolemia, unspecified; E55.9 Vitamin D deficiency, unspecified; E21.3 Hyperparathyroidism, unspecified; E04.2 Nontoxic multinodular goiter; F03.90 Unspecified dementia, unspecified severity, without behavioral disturbance, psychotic disturbance, mood disturbance, and anxiety; G47.00 Insomnia, unspecified | CPT/HCPCS: 96127; 99212 ==

== ENCOUNTER 2025-01-24 07:05 | Emergency (ER) | payer MEDICARE, SELFPAY ==
--- NOTE | ~2025-01-24 | XR_ITS ---
EXAMINATION: XR CHEST CLINICAL INFORMATION: chest pain, SOB COMPARISON: April 18, 2024. TECHNIQUE: 2 views of the chest were obtained. FINDINGS: Hyperinflated lungs. Bilateral pulmonary reticular pattern. No gross consolidation, pleural effusion or pneumothorax. Cardiomediastinal silhouette size is unchanged. Tortuous thoracic aorta. Multilevel thoracolumbar spondylosis. Osteopenia versus osteoporosis. XR/XR chest 2V IMPRESSION: COPD emphysematous type changes without gross acute airspace disease. Multilevel spondylosis. Electronically signed by: Sundar Ramos MD 01/24/2025 10:01 AM EDT
[2025-01-24 07:15] VITALS: BP 155/69; BP 161/74; PULSE 67; PULSE 76; RESP 25; TEMP 36.9; O2SAT 99; BMI 24.0
--- NOTE | 2025-01-24 07:26 | ECG_ITS ---
Test Reason : dypnea Blood Pressure : */* mmHG Vent. 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
[2025-01-24 07:28] VITALS: BP 161/74; PULSE 67; RESP 25; TEMP 36.9; O2SAT 99
--- NOTE | 2025-01-24 07:32 | PC.NURSE ---
84 M presents to ED with SOB, COPD exacerbation, laura tightness, and L arm numbness/tingling. Pt recieved neb from EMS, now finished and denies SOB or CP at this time. Sts L arm numbness/tingling ongoing. Equal strength bilat in upper and lower extremities. RR even and unlabored, some rhonchi in R lung. A+Ox4, a bit hard of hearing. 2L NC at baseline but now on 1L NC, satting well.
[2025-01-24 07:49] LABS: MANUAL DIFF FLAG NO
[2025-01-24 07:52] LABS: Hematocrit 37.5 % (42.0-52.0); Hemoglobin 12.6 g/dl (14.0-18.0); Imm Gran Abs Auto 0.09 X10*3/uL (0.00-0.03); Imm Gran Pct Auto 1.1 % (0.0-0.4); Lymphocytes Absolute Auto 1.2 X10*3/uL (1.2-4.9); Mean Corpuscular HGB Conc 33.6 g/dl (31.0-36.0); Mean Corpuscular Hemoglobin 32.6 pg (27.0-33.0); Mean Corpuscular Volume 96.9 fL (80.0-98.0); NRBC Abs Auto 0.000 X10*3/uL (0.0-0.012); NRBC Pct Auto 0.0 /100WBC (0.0-0.2); Platelet Count 180 X10*3/uL (160-400); Red Blood Count 3.87 X10*6/uL (4.60-5.80); White Blood Count 8.4 X10*3/uL (4.8-10.8)
[2025-01-24 08:07] LABS: Alanine Aminotransferase 9 U/L (0-40); Albumin Level 3.6 g/dL (3.5-5.0); Alkaline Phosphatase 111 U/L (39-117); Anion Gap 12 (12-20); Aspartate Amino Transferase 21 U/L (5-37); Blood Urea Nitrogen 23 mg/dL (9-16); Calcium 8.9 mg/dL (8.4-10.2); Carbon Dioxide 26 mmol/L (22-29); Chloride 109 mmol/L (96-108); Creatinine Clr Calc Pharmacy 46.5; Estimated Glomerular Filt Rate 57; Potassium 4.1 mmol/L (3.3-5.1); Sodium 143 mmol/L (135-145); Total Protein 6.5 g/dL (6.5-8.0)
--- OUTSIDE RECORDS SUMMARY | 2025-01-24 08:09 | XMS_ITS | Encounter Summary ---
Author Organization [facility] Address [address] [place] [id number] Phone Care Team Providers Care General Dentist Name Role Phone Cedric Sarabia MD Unavailable [phone] Unknown, Unknown Primary Care Provider Manuel mays Encounter Details Date Type Department Care Team (Late st Contact Info) Description 10/05/2023 Telephone [facility] [address] [place] [address] Unknown, Unknown, MD Social History Tobacco Use Types Packs/Day Years Used Date Smoking Tobacco: Former Cigarettes 0.5 15 1 967 - 1982 Smokeless Tobacco: Never Alcohol Use Standard Drinks/Week Comments No 0 (1 standard drink = 0.6 oz pur e alcohol) Education Answer Date Recorded Are you interested in more education? Not on trudy e 10/23/2022 Are you concerned about learning? Not on file 10/23/2022 No 10/23/2022 No 10/23/2022 Digital Access Answer Date Recorded No 11/20/2022 No 11/20/2022 Reliable internet access at home? Not on file 11/20/2022 Device with a working camera? Not on file Intimate Partner Violence Answer Date R ecorded Denied Basic Needs Not on file 11/04/2022 In the past 12 months have y ou been in a relationship with a person who hurts, threatens, or tries to control you? No 11/04/2022 Worried food would run out Not on file 11/04 In the past 12 months have y ou been in a relationship with a person who hurts, threatens, or tries to control you? No 11/04/2022 Sex and Gender Information Value Date Recorded Sex Assigned at Not on file Legal Sex Male 10:12 PM EDT Gender Identity Not on file Sexual Orientation Not on file documented as of this encounter Plan of Treatment Not on file documented as of this encounter Visit Diagnoses Not on filedocumented in this encounter Additional Health Concerns Assessment Noted Time PHQ-9 Depression Total Score: 6 11/05/19 8:02 AM EDT PHQ-2 Depression Total Score: 0 11/05/19 8:02 AM EDT documented as of this encounter Care Teams General Dentist Relationship Specialty Start Date End Date Unknown, Unknown, MD PCP - General 09/08/23 Cedric Sarabia MD [address] [place] [address] [place] [address] Pulmonary Disease 09/18/22 documented as of this encounter Additional Source Comments The information contained in this document represents components of the legal health record. It is not the complete legal health record.[facility]
[2025-01-24 08:14] LABS: Troponin-I High Sensitivity 23.0 ng/L (<3.5-35.0)
[2025-01-24 08:57] LABS: Resp Syncy Virus RNA Qual PCR NEGATIVE (Negative); SARS COV2 PCR INHOUSE NEGATIVE (Negative)
--- NOTE | 2025-01-24 08:58 | ED_ITS ---
HPI - General Adult General Chief complaint: Dyspnea Stated complaint: CHEST TIGHTNESS Time Seen by Provider: 01/24/25 08:57 Source: patient, family (patient's ) and EMS Mode of arrival: EMS Limitations: no limitations History of Present Illness ED Provider: Edilia Carrasquillo PA-C HPI narrative: Patient is an 84 year old assigned male at with a history of PAD, HTN, hypercholesterolemia, HFpEF, COPD, and DVT on Eliquis presenting to the emergency department today with increased shortness of breath. Patient states that he has COPD and is on oxygen at baseline and today he was having an increased work of breathing. Patient states that he now feels fine. Patient's states that the patient was complaining of shortness of breath this morning. Patient denies any dizziness, lightheadedness, abdominal pain, nausea, vomiting, fever, chills, blurry vision, double vision, loss of vision, chest pain, back pain, night sweats, pain with urination, increased urinary frequency, increased urinary urgency, blood in his urine or stool, syncope or a near syncopal episode, recent trauma or falls, bowel incontinence, bladder incontinence, or any other complaints at this time. Relieving factors: none Exacerbating factors: none Associated symptoms: shortness of breath Treatments prior to arrival: none Related Data Home Medications ?Medication ?Instructions ?Recorded ?Confirmed trazodone 50 mg tablet 50 mg PO BEDTIME PRN Insomni a 08/20/23 01/11/25 quetiapine 150 mg tablet mg PO DAILY 08/02/24 5 quetiapine 25 mg tablet mg PO 08/02/24 01/11/25 Previous Rx's ?Medication ?Instructions ?Recorded albuterol sulfate 90 mcg/actuation 2 puff inhalation Q 6H PRN 03/30/23 aerosol inhaler (ProAir HFA) shortness of breath or wh eezing 30 days #1 inhaler melatonin 3 mg tablet 6 mg (2 x 3 mg) PO BEDTIME P RN 03/30/23 Insomnia #60 tabs memantine 5 mg tablet 5 mg PO BID 30 days #60 tabs 03/30/23 furosemide 20 mg tablet 20 mg PO QAM edema #30 tabs 04/29/24 cholecalciferol (vitamin D3) 50 50 mcg PO DAILY 90 day s #90 caps 11/11/24 mcg (2,000 unit) capsule olanzapine 2.5 mg tablet (Zyprexa) 2.5 mg PO QPM PRN 1 07/25/23 Agitation/hallucination #30 tabs ipratropium 0.5 mg-albuterol 3 mg 3 ml inhalation Q4-6 H PRN wheezing 11/03/24 (2.5 mg base)/3 mL nebulization #180 mL soln fluticasone furoate 100 1 ea inhalation DAILY #60 ea 12/13/24 mcg-vilanterol 25 mcg/dose inhalation powder (Breo Ellipta) tiotropium bromide 2.5 2 puff inhalation DAILY COPD #4 12/13/24 mcg/actuation mist for inhalation grams (Spiriva Respimat) atorvastatin 10 mg tablet 10 mg PO BEDTIME 90 days #90 tabs 12/22/24 lisinopril 20 mg tablet 20 mg PO DAILY 90 days #90 t abs 12/22/24 apixaban 5 mg tablet 5 mg PO BID 30 days #60 tabs 01/03/25 azithromycin 250 mg tablet See Rx Instructions PO .COM PLEX #6 01/24/25 tabs prednisone 20 mg tablet 20 mg PO DAILY 7 days #7 tab s 01/24/25 Allergies Allergy/AdvReac Type Severity Reaction Status Date / Time No Known Allergies Allergy Mild NONE Verified 01/24/25 07:21 cats dogs ragweed dust pollen Allergy Unknown Unknown Uncoded 01/24/25 07:21 Review of Systems 2 Constitutional: Constitutional: Reports no additional constitutional complaints, Denies chills, Denies fever(s) and Denies night sweats Eyes: Eyes: Reports no additional eye complaints, Denies blurry vision, Denies change in vision, Denies diplopia, Denies eye discharge, Denies loss of vision and Denies eye pain ENT: Denies dizziness Cardiovascular: Cardiovascular: Reports no additional cardiovascular complaints, Denies chest pain, Denies lightheadedness, Denies Loss of Consciousness and Reports dyspnea Respiratory: Respiratory: Reports no additional respiratory complaints and Reports dyspnea Comments: chronically on oxygen Gastrointestinal: Gastrointestinal: Reports no additional gastrointestinal complaints, Denies abdominal pain, Denies melena, Denies hematochezia, Denies change in bowel habits and Denies change in stool character Genitourinary: Genitourinary: Reports no additional male genitourinary complaints, Denies hematuria, Denies oliguria, Denies difficulty urinating, Denies dysuria, Denies urinary frequency, Denies urinary hesitancy, Denies urinary incontinence and Denies urinary urgency Musculoskeletal: Musculoskeletal: Reports no additional musculoskeletal complaints, Denies numbness and Denies tingling Neurologic: Denies dizziness, Denies loss of vision, Denies numbness and Denies tingling Psychiatric: Psychiatric: Reports no additional psychiatric complaints Endocrine: Endocrine: Reports no additional endocrine complaints Hematologic/Lymphatic: Hematologic/Lymphatic: Reports no additional hematologic/lymphatic complaints Allergic/Immunologic: Allergic/Immunologic: Reports no additional allergic/immunologic complaints [facility] Past Medical History Attestation statement: The following information was validated with the patient. (all information validated with the patient's ) Source: old records reviewed, obtained from family (patient's provided additional history and confirmed the history provided by the patient. ) and nursing notes reviewed Medical History Insomnia Pure hypercholesterolemia Essential hypertension Pneumothorax after biopsy Hypoxemia COPD (chronic obstructive pulmonary disease) Pulmonary emphysema Osteopenia Hyperparathyroidism Osteoporosis Vitamin D deficiency Multinodular thyroid Surgical History Hx of prostatectomy Hx of hernia repair Family History Family History Father No problems noted. Mother No problems noted. Social History Social History Household Members: Family Household Members Other:: 2 Housing: House Do you presently have visiting nurse or other home services: Yes Alcohol intake: never Comment: sitter Patient Tobacco Use Status: Former Tobacco user Tobacco use type: Cigarette Smoked in Last 30 Days: No e-Cigarette/Vaping Use: Never Used Second Hand Smoke Exposure: Yes Use of substances other than those prescribed or required for medical reasons: No Advance Directives: Yes Advance Directives on File: Yes Advance Directives Date on File: 02/28/23 Do you have a plan to hurt others: No Plan service: No Current occupational status: retired Sexual orientation: Straight/Heterosexual Cognitive needs: Yes Hearing needs: No Vision needs: No Physical Exam ED Vital Signs: Vital Signs - 24 hr 01/24/25 07:15 01/24/25 07:28 01/24/25 09:28 Temperature 98.5 F 98.5 F Pulse Rate 67 67 83 Respiratory Rate 25 H 25 H 26 H Blood Pressure 161/74 H 161/74 H Pulse Oximetry 99 99 Oxygen Delivery Method Nasal Cannula Nasal Cannula BMI result Body Mass Index 24.0 Const General: cooperative, no acute distress, alert and awake Nutritional Appearance: well nourished Orientation/consciousness: patient oriented x3 HENMT Head: Yes normal to inspection and Yes atraumatic Ears: hearing grossly normal bilaterally and external ears normal General nose exam: Normal external nose present, no nasal discharge noted and no epistaxis Face and sinus: Yes normal facial exam, No abrasion and No laceration Mouth: Normal oral and palatal mucosa present, no drooling and no muffled voice Eyes General: appearance normal, both eyes and all related structures Periorbital: periorbital findings normal Eyelids: Yes eyelids normal Conjunctivae: conjunctivae normal Pupils: Equal, round and reactive pupils present EOM: EOMs intact bilaterally Neck Neck: Yes normal visual inspection, Yes full ROM and Yes no lymphadenopathy Resp Other: patient on oxygen via nasal cannula per his baseline Effort & Inspection: normal respiratory effort and able to speak in complete sentences Neuro General: patient oriented x3, moves all extremities and CN's II-XI intact bilaterally Cranial nerves: Yes Equal, round and reactive pupils present Cognition (Neuro): normal cognition Extrem General: Yes normal to inspection, Yes full ROM and Yes capillary refill normal Psych Appearance: grossly normal Mental Status: mental status grossly normal Affect: normal affect Attitude: cooperative Thought process: Normal thought process present Thought content: Normal thought content present Insight: Good insight present (Psych) Medications Administered Discontinued Medications Generic Name Dose Route Start Last Admin Trade Name Freq PRN Reason Stop Dose Admin Albuterol Sulfate 5 mg/ 0 mg 01/24/25 09:25 01/24/25 09:27 Albuterol/Ipratropium 3 ml INHALE 01/24/25 09:26 1 each ONCE ONE Administration Medical Decision Making Medical Decision Making MDM Narrative: Patient is an 84 year old assigned male at with a history of PAD, HTN, hypercholesterolemia, HFpEF, COPD, and DVT on Eliquis presenting to the emergency department today with increased shortness of breath. Patient's physical exam was unremarkable and consistent with his baseline. Patient's blood work was unremarkable - including a stable troponin. Patient was not hypoxic while in the department. Patient's EKG was unremarkable. Patient's chest x-ray showed no acute process. Patient's clinical presentation is most consistent with a COPD exacerbation for which he will be treated with Azithro + Prednisone. I explained my physical exam findings as well as all test results to the patient and the patient's . I answered all questions asked by the patient and the patient's . I stressed the importance of the patient taking his medication as directed (either prescribed or as the over the counter packaging recommends). I stressed the importance of the patient following up with his primary care provider. I stressed the importance of the patient returning to the emergency department immediately if his symptoms were to worsen or if he were to develop any dizziness, shortness of breath, difficulty breathing, chest pain, blurry vision, loss of vision, nausea, vomiting, abdominal pain, fever, chills, back pain, or any other complaints. Patient and the patient's verbalized agreement and understanding with this treatment plan and discharge. Differential Diagnosis Differential Diagnoses: The differential diagnosis associated with the presentation includes COPD exacerbation PNA SOB Chest pain NSTEMI STEMI Admission/Observation Consideration of admission/observation: Escalation of care including admission/observation considered Patient would have been admitted to the hospital had his work up had any findings where hospital admission was appropriate and his clinical presentation warranted hospital admission. Lab Data [facility] Lab Attestation statement: I reviewed the patient's lab results. My interpretation of these results are in the [facility] Rationale portion of this note. 01/24/25 07:44 01/24/25 07:44 Labs: Lab Results 01/24/25 01/24/25 01/24/25 Range/Units 07:44 09:18 09:22 WBC 8.4 (4.8-10.8) X10*3/uL RBC 3.87 L (4.60-5.80) X10*6/uL Hgb 12.6 L (14.0-18.0) g/dl Hct 37.5 L (42.0-52.0) % MCV 96.9 (80.0-98.0) fL MCH 32.6 (27.0-33.0) pg MCHC 33.6 (31.0-36.0) g/dl RDW 12.7 (11.0-16.0) % Plt Count 180 (160-400) X10*3/uL MPV 10.6 (9.4-12.4) fL Immature Gran % (Auto) 1.1 H (0.0-0.4) % Neut % (Auto) 68.0 (45-73) % Lymph % (Auto) 14.7 L (20-40) % Hudson % (Auto) 9.7 (2-11) % Eos % (Auto) 5.5 H (0-4) % Baso % (Auto) 1.0 (0-2) % Lymph # (Auto) 1.2 (1.2-4.9) X10*3/uL Hudson # (Auto) 0.8 (0.1-1.2) X10*3/uL Eos # (Auto) 0.5 H (0.0-0.4) X10*3/uL Baso # (Auto) 0.1 (0.0-0.2) X10*3/uL Abs Immat Gran (auto) 0.09 H (0.00-0.03) X10*3/uL Absolute Neuts (auto) 5.7 (2.0-8.3) x10*3/uL Absolute Nucleated RBC 0.000 (0.0-0.012) X10*3/uL Nucleated RBC % (auto) 0.0 (0.0-0.2) /100WBC VBG pH 7.56 H (7.32-7.43) VBG pCO2 26 mmHg VBG pO2 203 mmHg VBG HCO3 23 (22-26) mmol/L VBG O2 Saturation 99.0 % VBG Base Excess 2.8 mmol/L Sodium 143 (135-145) mmol/L Potassium 4.1 (3.3-5.1) mmol/L Chloride 109 H (96-108) mmol/L Carbon Dioxide 26 (22-29) mmol/L Anion Gap 12 (12-20) BUN 23 H (9-16) mg/dL Creatinine 1.22 (0.5-1.4) mg/dL Estim Creat Clear Calc 46.5 Estimated GFR 57 Random Glucose 102 (60-115) mg/dL Calcium 8.9 (8.4-10.2) mg/dL Total Bilirubin 0.6 (0.0-1.0) mg/dL AST 21 (5-37) U/L ALT 9 (0-40) U/L Alkaline Phosphatase 111 (39-117) U/L Troponin I High Sens 23.0 21.4 (<3.5-35.0) ng/L Total Protein 6.5 (6.5-8.0) g/dL Albumin 3.6 (3.5-5.0) g/dL Influenza Type A (PCR) NEGATIVE (Negative) Influenza Type B (PCR) NEGATIVE (Negative) RSV RNA Qual (PCR) NEGATIVE (Negative) SARS-CoV-2 RNA (RT-PCR) NEGATIVE (Negative) Independent Interpretation I performed an independent interpretation of an: EKG and Plain X-Ray Interpretation: My interpretation is in agreement with the radiologist's impression of this imaging study. L EXAMINATION: XR CHEST CLINICAL INFORMATION: chest pain, SOB COMPARISON: April 18, 2024. TECHNIQUE: 2 views of the chest were obtained. FINDINGS: Hyperinflated lungs. Bilateral pulmonary reticular pattern. No gross consolidation, pleural effusion or pneumothorax. Cardiomediastinal silhouette size is unchanged. Tortuous thoracic aorta. Multilevel thoracolumbar spondylosis. Osteopenia versus osteoporosis. XR/XR chest 2V IMPRESSION: COPD emphysematous type changes without gross acute airspace disease. Multilevel spondylosis. Electronically signed by: Sundar Ramos MD 01/24/2025 10:01 AM EDT Dictated By: Sundar Phillips MD Signed By: Electronically signed by Sundar Cox MD 01/24/25 1001 I independently interpreted this EKG and am in agreement with the below findings: Vent. Rate: 68 BPM Atrial Rate: 68 BPM P-R Int: 166 ms QRS Dur: 126 ms QT Int: 424 ms P-R-T Axes: 80 -64 55 degrees QTcB Int: 450 ms Sinus rhythm with marked sinus arrhythmia Left axis deviation Right bundle branch block Inferior infarct (cited on or before 28-Feb-2023) When compared with ECG of 28-Jul-2024 09:48, Fusion complexes are no longer Present Premature ventricular complexes are no longer Present T wave inversion no longer evident in Inferior leads DD/ 0720 Radiology Impression Discussion of test interpretation with radiology: I have reviewed the radiologist's reading. Independent Historian Clinical information obtained from an independent historian. History obtained from or confirmed by: Spouse (Patient's provided additional history and confirmed the history provided by the patient. ) and EMS (EMS provided additional history and confirmed the history provided by the patient. ) Discharge Plan Discharge Clinical Impression: COPD exacerbation Patient Disposition: Home, Self-Care Instructions: COPD (Chronic Obstructive Pulmonary Disease) (DC) Additional Instructions: Your work up today was unremarkable and most consistent with a COPD exacerbation. Continue wearing your oxygen as directed. Take your medication as directed. Follow up with a primary care provider. Return to the emergency department immediately if your symptoms worsen or if you develop any numbness, tingling, dizziness, shortness of breath, difficulty breathing, chest pain, blurry vision, loss of vision, nausea, vomiting, abdominal pain, fever, chills, back pain, or any other complaints. L If you do not have a primary care provider - call any of the below numbers to establish and follow up with a primary care provider. [facility] ([place]) [phone] [place] [address], [address] [facility] ([address] [place]) [phone] [place] [address], [address] [facility], [address] [facility] ([address] [place]) [phone] [place] [address], [address] [facility], [address] [facility] ([place]) [phone] [place] [address], [address] [facility], [address] [facility] [phone] [address] [facility], [address] Please see the information below about our Patient Portal. If you are not yet enrolled in the [facility] Patient Portal, you will receive an enrollment email invitation following your visit to any [facility] care setting. You may also self-enroll in the Patient Portal by visiting our website: [email or web address] The following information is required to access the Patient Portal: - Your [facility] Medical Record Number - Your personal home email address (must match what is in your electronic medical record, Registration staff can assist with this) - Name - Date of Capabilities of the Patient Portal: - Message some providers - View upcoming appointments - Access your health summary, medical history, and visit history - View current conditions and allergies - View procedure and lab results - View your medications, including guidelines, side effects, and precautions - Complete pre-appointment questionnaires requested by your provider - Ready summary reports of your office visits and procedures To access the Patient Portal Mobile [employer], follow these directions: - Search [employer] in the [employer] Store or [employer] Store - Download the [employer] - Search for [facility] - Enter your login/password Prescriptions: New azithromycin 250 mg tablet See Rx Instructions .ROUTE .COMPLEX Qty: 6 0RF Rx Instructions: For 250 mg dose pack: take 500 mg today (day 1), then 250 mg for 4 days (days 2-5) prednisone 20 mg tablet 20 mg PO DAILY 7 Days Qty: 7 0RF No Action furosemide 20 mg tablet 20 mg PO QAM Qty: 30 2RF ipratropium-albuterol 0.5 mg-3 mg(2.5 mg base)/3 mL solution for nebulization 3 ml inhalation Q4-6H PRN (Reason: wheezing) Qty: 180 11RF fluticasone furoate-vilanterol [Breo Ellipta] 100-25 mcg/dose blister with device 1 ea inhalation DAILY Qty: 60 5RF Spiriva Respimat 2.5 mcg/actuation mist 2 puff inhalation DAILY Qty: 4 1RF atorvastatin 10 mg tablet 10 mg PO BEDTIME 90 Days Qty: 90 1RF lisinopril 20 mg tablet 20 mg PO DAILY 90 Days Qty: 90 1RF apixaban 5 mg tablet 5 mg PO BID 30 Days Qty: 60 0RF memantine 5 mg Tablet 5 mg PO BID 30 Days Qty: 60 0RF melatonin 3 mg Tablet 6 mg PO BEDTIME PRN (Reason: Insomnia) Qty: 60 0RF albuterol sulfate [ProAir HFA] 90 mcg/actuation HFA aerosol inhaler 2 puff inhalation Q6H PRN (Reason: shortness of breath or wheezing) 30 Days Qty: 1 0RF trazodone 50 mg tablet 50 mg PO BEDTIME PRN (Reason: Insomnia) olanzapine [Zyprexa] 2.5 mg tablet 2.5 mg PO QPM PRN (Reason: Agitation/hallucination) Qty: 30 0RF cholecalciferol (vitamin D3) 50 mcg (2,000 unit) capsule 50 mcg PO DAILY 90 Days Qty: 90 3RF quetiapine 150 mg tablet PO DAILY quetiapine 25 mg tablet PO Print Language: Tuvaluan
[2025-01-24 09:25] LABS: VBG HCO3 23 mmol/L (22-26); VBG O2 % Saturation 99.0 %
[2025-01-24] MEDS: Albuterol Sulfate 5 MG, Albuterol/Iprat 2.5/0.5MG 3 ML 3 ML INHALE (09:27)
[2025-01-24 09:28] VITALS: PULSE 83; RESP 26; O2SAT 97
[2025-01-24 09:32] LABS: Venous Blood Gas Refer to POC result
[2025-01-24 09:43] LABS: Troponin-I High Sensitivity 21.4 ng/L (<3.5-35.0)
[2025-01-24 10:49] VITALS: BP 134/66; PULSE 83; RESP 26; TEMP 36.7; O2SAT 98
== END 2025-01-24 10:50 | disposition home or self-care (01) ==
PROVIDERS: Physician Assistant Medical; Emergency Provider Emergency Medicine
DX: J44.1 Chronic obstructive pulmonary disease with (acute) exacerbation (principal); R06.00 Dyspnea, unspecified; R07.9 Chest pain, unspecified; R06.02 Shortness of breath; I11.0 Hypertensive heart disease with heart failure; I50.30 Unspecified diastolic (congestive) heart failure; I82.409 Acute embolism and thrombosis of unspecified deep veins of unspecified lower extremity; Z79.01 Long term (current) use of anticoagulants
CPT/HCPCS: 36415; 71046; 80053; 82803; 84484; 85025; 87637; 93005; 94640; 99284; 99285

== ENCOUNTER → 2025-01-24 07:26 | Outpatient (BNV) | payer MEDICARE, SELFPAY | PROVIDERS: Emergency Provider Emergency Medicine; Visit Provider Internal Medicine Cardiovascular Disease | DX: I45.10 Unspecified right bundle-branch block (principal) | CPT/HCPCS: 93010 ==

== ENCOUNTER → 2025-01-24 09:03 | Outpatient (BNV) | payer MEDICARE, SELFPAY | PROVIDERS: Emergency Provider Emergency Medicine; Visit Provider Radiology Diagnostic Radiology | DX: J43.9 Emphysema, unspecified (principal) | CPT/HCPCS: 71046 ==

== ENCOUNTER 2025-03-12 07:27 | Emergency (ER) | payer MEDICARE, SELFPAY ==
[2025-03-12] VITALS (9 sets, daily range): BP systolic 144–162; BP diastolic 50–104; PULSE 64–75; RESP 15–23; TEMP 36.8–37.2; O2SAT 97–100; BMI 25.0
--- NOTE | ~2025-03-12 | XR_ITS ---
EXAMINATION: XR CHEST 2 VIEWS HISTORY: dizzy, leg swelling COMPARISON: Comparison is made with the prior examination dated 01/24/2025. FINDINGS: PA and lateral views of the chest are submitted. The lungs are hyperinflated with COPD. There is scarring in the right middle lobe. The lungs are otherwise clear. There is no pleural effusion, pneumothorax, or pulmonary vascular congestion. The heart is normal in size. The aorta is tortuous. There is degenerative disc disease of the spine. XR/XR chest 2V IMPRESSION: COPD. No acute cardiopulmonary abnormality. Electronically signed by: Hari Henson MD 03/12/2025 08:29 AM EDT
--- NOTE | ~2025-03-12 | US_ITS ---
EXAMINATION: US TRIPLEX LOWER EXTREMITY, RIGHT CLINICAL INFORMATION: Right lower quadrant pain, history of DVTs. COMPARISON: 01/29/2024 TECHNIQUE: Color-flow triplex imaging with spectral analysis and compression Doppler were performed on the right lower extremity. FINDINGS: There is chronic-appearing partially occlusive thrombus in the distal right femoral vein and right popliteal vein. Normal compression and flow are noted throughout the right midcalf peroneal and posterior tibial veins. There is no Wheeler's cyst. 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 US/US venous duplex LE RT IMPRESSION: 1. Chronic-appearing partially occlusive thrombus in the right distal femoral vein and popliteal vein. Remainder of the deep venous structures of the right lower extremity are patent. 2. 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 Electronically signed by: Marc Cox MD 03/12/2025 09:31 AM EDT
--- NOTE | 2025-03-12 07:39 | ED_ITS ---
HPI - General Adult General Chief complaint: Dizziness Stated complaint: WOKE UP W/LEEG PAIN/ASWELLING,DIZZY PER EMS Time Seen by Provider: 03/12/25 07:38 Source: patient, family () and EMS Mode of arrival: EMS Limitations: no limitations History of Present Illness ED Provider: RUDY HANEY PA-C HPI narrative: 84 year old male with pmhx significant for PAD, HTN, HFpEF, HTN, HLD, COPD on 2L O2 at baseline, and DVT on eliquis presents to the ED today via EMS for evaluation of RLE pain. On arrival, patient has no complaints. He appears to be a poor historian given his history of dementia. He states his was the one that called EMS. I called and spoke to patient's , Paige, who provided collateral information. Paige states that patient woke up this morning and upon stepping out of bed, began complaining of right foot pain that was radiating up throughout his entire right leg. She noted the right leg to appear more swollen than the left, prompting her to contact EMS as he has a history of DVT. He is compliant with his Eliquis. She states he has not fallen and has been ambulating with a steady gait. On further questioning of patient, he denies any RLE pain/swelling, dizziness, weakness, chest pain, or shortness of breath. No complaints at this time. Related Data Home Medications ?Medication ?Instructions ?Recorded ?Confirmed trazodone 50 mg tablet 50 mg PO BEDTIME PRN Insomni a 08/20/23 01/11/25 quetiapine 150 mg tablet mg PO DAILY 08/02/24 5 quetiapine 25 mg tablet mg PO 08/02/24 01/11/25 Previous Rx's ?Medication ?Instructions ?Recorded albuterol sulfate 90 mcg/actuation 2 puff inhalation Q 6H PRN 03/30/23 aerosol inhaler (ProAir HFA) shortness of breath or wh eezing 30 days #1 inhaler melatonin 3 mg tablet 6 mg (2 x 3 mg) PO BEDTIME P RN 03/30/23 Insomnia #60 tabs memantine 5 mg tablet 5 mg PO BID 30 days #60 tabs 03/30/23 furosemide 20 mg tablet 20 mg PO QAM edema #30 tabs 04/29/24 cholecalciferol (vitamin D3) 50 50 mcg PO DAILY 90 day s #90 caps 05/08/24 mcg (2,000 unit) capsule olanzapine 2.5 mg tablet (Zyprexa) 2.5 mg PO QPM PRN 1 07/25/23 Agitation/hallucination #30 tabs ipratropium 0.5 mg-albuterol 3 mg 3 ml inhalation Q4-6 H PRN wheezing 11/03/24 (2.5 mg base)/3 mL nebulization #180 mL soln fluticasone furoate 100 1 ea inhalation DAILY #60 ea 12/13/24 mcg-vilanterol 25 mcg/dose inhalation powder (Breo Ellipta) atorvastatin 10 mg tablet 10 mg PO BEDTIME 90 days #90 tabs 12/22/24 lisinopril 20 mg tablet 20 mg PO DAILY 90 days #90 t abs 12/22/24 azithromycin 250 mg tablet See Rx Instructions PO .COM PLEX #6 01/24/25 tabs prednisone 20 mg tablet 20 mg PO DAILY 7 days #7 tab s 01/24/25 tiotropium bromide 2.5 2 puff inhalation DAILY COPD #4 02/22/25 mcg/actuation mist for inhalation grams (Spiriva Respimat) apixaban 5 mg tablet 5 mg PO BID 30 days #60 tabs 02/28/25 Allergies Allergy/AdvReac Type Severity Reaction Status Date / Time No Known Allergies Allergy Mild NONE Verified 03/12/25 07:42 cats dogs ragweed dust pollen Allergy Unknown Unknown Uncoded 01/24/25 07:21 Review of Systems 2 Review of Systems: Yes all other systems are reviewed and are negative [facility] Past Medical History Attestation statement: The following information was validated with the patient. Source: old records reviewed and nursing notes reviewed Medical History Insomnia Pure hypercholesterolemia Essential hypertension Pneumothorax after biopsy Hypoxemia COPD (chronic obstructive pulmonary disease) Pulmonary emphysema Osteopenia Hyperparathyroidism Osteoporosis Vitamin D deficiency Multinodular thyroid Surgical History Hx of prostatectomy Hx of hernia repair Family History Family History Father No problems noted. Mother No problems noted. Social History Social History Household Members: Family Household Members Other:: 2 Housing: House Do you presently have visiting nurse or other home services: Yes Alcohol intake: never Comment: sitter Patient Tobacco Use Status: Former Tobacco user Tobacco use type: Cigarette Smoked in Last 30 Days: No e-Cigarette/Vaping Use: Never Used Second Hand Smoke Exposure: Yes Use of substances other than those prescribed or required for medical reasons: No Advance Directives: Yes Advance Directives on File: Yes Advance Directives Date on File: 02/28/23 service: No Current occupational status: retired Sexual orientation: Straight/Heterosexual Cognitive needs: Yes Hearing needs: No Vision needs: No Physical Exam ED Vital Signs: Vital Signs - 24 hr 03/12/25 08:38 03/12/25 09:52 03/12/25 10:00 Temperature 98.7 F 98.6 F Pulse Rate 67 70 72 Respiratory Rate 19 16 Blood Pressure 144/50 H 154/75 H 154/76 H Pulse Oximetry 100 100 Oxygen Delivery Method Nasal Cannula Nasal Cannula Oxygen Flow Rate 2 2 03/12/25 10:02 03/12/25 10:02 03/12/25 11:03 Temperature 98.2 F Pulse Rate 75 73 73 Respiratory Rate 18 Blood Pressure 152/70 H 155/75 H 146/61 H Pulse Oximetry 98 Oxygen Delivery Method Nasal Cannula Oxygen Flow Rate 2 03/12/25 12:25 03/12/25 12:55 Temperature 98.8 F 98.8 F Pulse Rate 73 73 Respiratory Rate 15 15 Blood Pressure 162/85 H 162/85 H Pulse Oximetry 97 97 Oxygen Delivery Method Nasal Cannula Nasal Cannula Oxygen Flow Rate 2 2 BMI result Body Mass Index 25.0 hypertensive, low grade temp of 99F orally General: NAD Skin: Warm, dry, intact. No rashes or lesions. Head: Normocephalic, atraumatic. EENT: Hearing is intact b/l. Conjunctiva clear. PERRLA. EOM intact. Moist mucous membranes.? Neck: Supple without LAD Cardiac: Chest wall symmetric. RRR. Lungs: Normal respiratory effort without accessory muscle use. CTA bilaterally. on 2L NC per baseline. Abdomen: Soft, non-tender, non-distended. No rebound tenderness or guarding Back: No midline spinous or paraspinal tenderness. No step off deformity. Ext: FROM intact throughout. No pitting edema to bilateral lower extremities. No calf tenderness bilaterally. 2+ dp/pt pulse intact. Neuro: AOx3. Normal speech. Course Course Course Narrative: CBC without leukocytosis or left shift. Macrocytic anemia, H and H stable when compared to priors and above transfusion threshold. Chemistry without acute electrolyte abnormality requiring intervention. Renal function around baseline. Liver function WNL. Troponin WNL at 27.1. BNP 123, this appears to be around his baseline. Chest x-ray showing COPD, no infiltrate or consolidation, no pulmonary congestion. Not consistent with acute CHF. Urine without infection. Venous duplex showing chronic appearing partially occlusive thrombus in the right distal femoral vein and popliteal vein, consistent with prior imaging. No acute DVTs. > patient continues to have no complaints in the ED. He is well-appearing. Vitals have remained stable. At this time I feel he is stable for discharge home with outpatient follow up. patient and are agreeable. Patient has remained stable throughout ED visit today. Discussed worrisome signs and symptoms and when to return to the ED. All questions answered at this time. Patient is agreeable with disposition and stable for discharge. Medical Decision Making Medical Decision Making [facility] Narrative: 84 year old male with pmhx significant for PAD, HTN, HFpEF, HTN, HLD, COPD on 2L O2 at baseline, and DVT on eliquis presents to the ED today via EMS for evaluation of RLE pain. patient is hypertensive, vitals are otherwise wnl. he is well appearing and in NAD. exam benign. Differential diagnosis includes anemia, electrolyte abnormality, DVT. unlikely fracture, nv compromise, threat to limb, compartment syndrome. Plan for labs, ekg, imaging, re-evaluation. Differential Diagnosis Differential Diagnoses: The differential diagnosis associated with the presentation includes as above. Admission/Observation not indicated. Lab Data [facility] Lab Attestation statement: I reviewed the patient's lab results. as above. 03/12/25 08:33 03/12/25 08:33 Labs: Lab Results 03/12/25 03/12/25 Range/Units 08:33 10:52 WBC 8.1 (4.8-10.8) X10*3/uL RBC 3.79 L (4.60-5.80) X10*6/uL Hgb 12.4 L (14.0-18.0) g/dl Hct 38.0 L (42.0-52.0) % MCV 100.3 H (80.0-98.0) fL MCH 32.7 (27.0-33.0) pg MCHC 32.6 (31.0-36.0) g/dl RDW 12.6 (11.0-16.0) % Plt Count 199 (160-400) X10*3/uL MPV 10.6 (9.4-12.4) fL Immature Gran % (Auto) 1.1 H (0.0-0.4) % Neut % (Auto) 72.3 (45-73) % Lymph % (Auto) 11.9 L (20-40) % [place] % (Auto) 9.0 (2-11) % Eos % (Auto) 4.6 H (0-4) % Baso % (Auto) 1.1 (0-2) % Lymph # (Auto) 1.0 L (1.2-4.9) X10*3/uL [place] # (Auto) 0.7 (0.1-1.2) X10*3/uL Eos # (Auto) 0.4 (0.0-0.4) X10*3/uL Baso # (Auto) 0.1 (0.0-0.2) X10*3/uL Abs Immat Gran (auto) 0.09 H (0.00-0.03) X10*3/uL Absolute Neuts (auto) 5.9 (2.0-8.3) x10*3/uL Absolute Nucleated RBC 0.000 (0.0-0.012) X10*3/uL Nucleated RBC % (auto) 0.0 (0.0-0.2) /100WBC Sodium 145 (135-145) mmol/L Potassium 4.5 (3.3-5.1) mmol/L Chloride 108 (96-108) mmol/L Carbon Dioxide 31 H (22-29) mmol/L Anion Gap 11 L (12-20) BUN 21 H (9-16) mg/dL Creatinine 1.27 (0.5-1.4) mg/dL Estim Creat Clear Calc 44.7 Estimated GFR 54 Random Glucose 101 (60-115) mg/dL Calcium 8.9 (8.4-10.2) mg/dL Magnesium 2.1 (1.6-2.6) mg/dL Total Bilirubin 0.5 (0.0-1.0) mg/dL AST 23 (5-37) U/L ALT 12 (0-40) U/L Alkaline Phosphatase 119 H (39-117) U/L Troponin I High Sens 27.1 (<3.5-35.0) ng/L B-Natriuretic Peptide 123 H (<100) pg/mL Total Protein 6.5 (6.5-8.0) g/dL Albumin 3.7 (3.5-5.0) g/dL Urine Color Yellow Urine Appearance Clear Urine pH 7.0 (5.0-9.0) Ur Specific [place] 1.010 (1.005-1.025) Urine Protein Negative (Neg-Trace) mg/dL Urine Glucose (UA) Negative (Negative) mg/dL Urine Ketones Negative (Negative) mg/dL Urine Blood Negative (Negative) Urine Nitrite Negative (Negative) Ur Leukocyte Esterase Negative (Negative) Independent Interpretation I performed an independent interpretation of an: EKG and Ultrasound Interpretation: ekg showing Radiology Impression Discussion of test interpretation with radiology: I have reviewed the radiologist's reading. Radiologist Impression: EXAMINATION: US TRIPLEX LOWER EXTREMITY, RIGHT CLINICAL INFORMATION: Right lower quadrant pain, history of DVTs. COMPARISON: 01/29/2024 TECHNIQUE: Color-flow triplex imaging with spectral analysis and compression Doppler were performed on the right lower extremity. FINDINGS: There is chronic-appearing partially occlusive thrombus in the distal right femoral vein and right popliteal vein. Normal compression and flow are noted throughout the right midcalf peroneal and posterior tibial veins. There is no Wheeler's cyst. 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 US/US venous duplex LE RT IMPRESSION: 1. Chronic-appearing partially occlusive thrombus in the right distal femoral vein and popliteal vein. Remainder of the deep venous structures of the right lower extremity are patent. 2. 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 Electronically signed by: Marc Cox MD 03/12/2025 09:31 AM EDT RP Reason for Exam: dizzy, leg swelling EXAMINATION: XR CHEST 2 VIEWS HISTORY: dizzy, leg swelling COMPARISON: Comparison is made with the prior examination dated 01/24/2025. FINDINGS: PA and lateral views of the chest are submitted. The lungs are hyperinflated with COPD. There is scarring in the right middle lobe. The lungs are otherwise clear. There is no pleural effusion, pneumothorax, or pulmonary vascular congestion. The heart is normal in size. The aorta is tortuous. There is degenerative disc disease of the spine. XR/XR chest 2V IMPRESSION: COPD. No acute cardiopulmonary abnormality. Electronically signed by: Hari Henson MD 03/12/2025 08:29 AM EDT RP Independent Historian Clinical information obtained from an independent historian. History obtained from or confirmed by: Spouse and EMS External Record Review External record reviewed: Inpatient record, Office record and Outpatient record Chronic Conditions Patient?s care impacted by: Other (COPD, DVT) Social Determinants Patient?s care significantly limited by Social Determinants of Health including: Other Social Determinant of Health Critical Care Time Critical Care Time Critical Care Time: No Discharge Plan Discharge Clinical Impression: Pain in right leg Patient Disposition: Home, Self-Care Instructions: Leg Pain (ED) Additional Instructions: You were evaluated in the ED today for evaluation of right leg pain. Your blood work is reassuring. Your urine does not appear infected. The ultrasound of your right leg does not demonstrate any acute clot. see below. US venous duplex LE RT IMPRESSION: 1. Chronic-appearing partially occlusive thrombus in the right distal femoral vein and popliteal vein. Remainder of the deep venous structures of the right lower extremity are patent. 2. 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 Follow up with your outpatient providers. Return with any new or worsening symptoms. In the case of an emergency call 911. Prescriptions: No Action furosemide 20 mg tablet 20 mg PO QAM Qty: 30 2RF ipratropium-albuterol 0.5 mg-3 mg(2.5 mg base)/3 mL solution for nebulization 3 ml inhalation Q4-6H PRN (Reason: wheezing) Qty: 180 11RF fluticasone furoate-vilanterol [Breo Ellipta] 100-25 mcg/dose blister with device 1 ea inhalation DAILY Qty: 60 5RF atorvastatin 10 mg tablet 10 mg PO BEDTIME 90 Days Qty: 90 1RF lisinopril 20 mg tablet 20 mg PO DAILY 90 Days Qty: 90 1RF Spiriva Respimat 2.5 mcg/actuation mist 2 puff inhalation DAILY Qty: 4 1RF apixaban 5 mg tablet 5 mg PO BID 30 Days Qty: 60 0RF memantine 5 mg Tablet 5 mg PO BID 30 Days Qty: 60 0RF melatonin 3 mg Tablet 6 mg PO BEDTIME PRN (Reason: Insomnia) Qty: 60 0RF albuterol sulfate [ProAir HFA] 90 mcg/actuation HFA aerosol inhaler 2 puff inhalation Q6H PRN (Reason: shortness of breath or wheezing) 30 Days Qty: 1 0RF trazodone 50 mg tablet 50 mg PO BEDTIME PRN (Reason: Insomnia) azithromycin 250 mg tablet See Rx Instructions .ROUTE .COMPLEX Qty: 6 0RF Rx Instructions: For 250 mg dose pack: take 500 mg today (day 1), then 250 mg for 4 days (days 2-5) prednisone 20 mg tablet 20 mg PO DAILY 7 Days Qty: 7 0RF olanzapine [Zyprexa] 2.5 mg tablet 2.5 mg PO QPM PRN (Reason: Agitation/hallucination) Qty: 30 0RF cholecalciferol (vitamin D3) 50 mcg (2,000 unit) capsule 50 mcg PO DAILY 90 Days Qty: 90 3RF quetiapine 150 mg tablet PO DAILY quetiapine 25 mg tablet PO Referrals: Physician,Unknown J [Primary Care Provider, Medical] Interventions: ED Discharge Assessment Last Done: 03/12/25 12:55 Discharge Date/Time: 03/12/25 12:56 Print Language: [place]
[2025-03-12 08:39] LABS: MANUAL DIFF FLAG NO
[2025-03-12 08:41] LABS: Hematocrit 38.0 % (42.0-52.0); Hemoglobin 12.4 g/dl (14.0-18.0); Imm Gran Abs Auto 0.09 X10*3/uL (0.00-0.03); Imm Gran Pct Auto 1.1 % (0.0-0.4); Lymphocytes Absolute Auto 1.0 X10*3/uL (1.2-4.9); Mean Corpuscular HGB Conc 32.6 g/dl (31.0-36.0); Mean Corpuscular Hemoglobin 32.7 pg (27.0-33.0); Mean Corpuscular Volume 100.3 fL (80.0-98.0); NRBC Abs Auto 0.000 X10*3/uL (0.0-0.012); NRBC Pct Auto 0.0 /100WBC (0.0-0.2); Platelet Count 199 X10*3/uL (160-400); Red Blood Count 3.79 X10*6/uL (4.60-5.80); White Blood Count 8.1 X10*3/uL (4.8-10.8)
[2025-03-12 09:01] LABS: Alanine Aminotransferase 12 U/L (0-40); Albumin Level 3.7 g/dL (3.5-5.0); Alkaline Phosphatase 119 U/L (39-117); Anion Gap 11 (12-20); Aspartate Amino Transferase 23 U/L (5-37); Blood Urea Nitrogen 21 mg/dL (9-16); Calcium 8.9 mg/dL (8.4-10.2); Carbon Dioxide 31 mmol/L (22-29); Chloride 108 mmol/L (96-108); Creatinine Clr Calc Pharmacy 44.7; Estimated Glomerular Filt Rate 54; Magnesium 2.1 mg/dL (1.6-2.6); Potassium 4.5 mmol/L (3.3-5.1); Sodium 145 mmol/L (135-145); Total Protein 6.5 g/dL (6.5-8.0)
[2025-03-12 09:05] LABS: B Type Natriuretic Peptide 123 pg/mL (<100)
[2025-03-12 09:08] LABS: Troponin-I High Sensitivity 27.1 ng/L (<3.5-35.0)
--- OUTSIDE RECORDS SUMMARY | 2025-03-12 09:40 | XMS_ITS | Clinical Summary ---
Author Organization [facility] Address [address] [facility] [address] [place] [address] Phone Care Team Providers Care Judicial Clerk Name Role Phone Cedric Sarabia MD Unavailable [phone] Unknown, Unknown Primary Care Provider Manuel mays Allergies Active Allergy Reactions Criticality Noted Date Comments Cat Dander Unknown 06/15/2022 Dog Dander Unknown 06/15/2022 House Dust Mite Unknown 06/15/2022 Ragweed Unknown 06/15/2022 Medications clopidogrel (PLAVIX) 75 mg tablet Take 1 tablet by mouth daily. 4 Active aspirin 81 mg chewable tablet Take 1 tablet by mouth daily. Active cholecalciferol (VITAMIN D3) 1,000 unit tablet Take 1 tablet by mouth every other day. 7 Active albuterol 90 mcg/actuation inhaler INHALER 2 PUFFS IN TO LUNGS EVERY 4-6 HOURS NEEDED FOR SHORTNES OF BREATH/WHEEZING 8 g 1 3 Active ipratropium-albu teroL (DUONEB) 0.5-3 mg (2.5 mg base)/3 mL nebulizer solution USE 1 VIAL VIA NEBULIZER EVERY 4 TO 6 HOURS NEEDED FOR WHEEZING *MAX 3 TIMES PER DAY 3 Active SPIRIVA RESPIMAT 2.5 mcg/actuation mist for inhalation INHALE 2 PUFFS EVERY MORNING FOR CHRONIC OBSTRUCTIVE PULMONARY DISEASE FOR 30 DAYS 3 Active traZODone (DESYREL) 50 MG tablet Take 50 mg by mouth nightly at bedtime as needed for sleep. Active QUEtiapine (SEROQUEL) 50 MG tablet Take 1 tablet (50 mg total) by mouth every morning. 90 tablet 1 3 Active QUEtiapine (SEROQUEL) 100 MG tablet Take 1 tablet (100 mg total) by mouth nightly at bedtime. 90 tablet 1 3 Active memantine (NAMENDA) 5 MG tablet Take 1 tablet (5 mg total) by mouth 2 (two) times a day. 180 tablet 1 3 Active BREO ELLIPTA 100-25 mcg/dose inhaler Inhale 1 puff into the lungs daily. Up to twice daily PRN. 3 Active MELATONIN ORAL Take 3 mg by mouth nightly at bedtime. Active atorvastatin (LIPITOR) 10 MG tablet Take 1 tablet (10 mg total) by mouth daily. 90 tablet 3 4 Active lisinopril (PRINIVIL,ZESTRI L) 20 MG tabletIndication s:Essential hypertension Take 1 tablet (20 mg total) by mouth every morning. 90 tablet 3 4 Active Active Problems Problem Noted Date Diagnosed Date Pneumonia due to COVID-19 virus 09/01/2023 Assessment & Plan (09/01/2023 9:41 AM EST): Lung exam done- BS faint, but clear diminished in b/l bases. Breathing easily. No fever, states cough is slight, but much improved. Had a CXR done 08/29 which showed resolution of tiny pneumothorax that was pres after a thoracentesis. The effusion had re accumulated slightly. He will need one more CXR after 09/16/23 to ensure resolution of RLL covid pna and to eval/ re-check pleural effusion. They will get this at [facility] and were advised today. He also has pulm f/u in the next few weeks. Will ask nsg to call and inquire what date is Pleural effusion 09/01/2023 Assessment & Plan (09/01/2023 9:41 AM EST): This was after a thoracentesis found on imaging during his admit to [facility] for RLL covid pna-/ It was re checked and resolved as of 08/30/23 CXR. Pressure injury of skin of trochanteric region o f right hip 09/01/2023 Assessment & Plan (09/01/2023 9:36 AM EST): He has a sore on his right hip. There is a [id number] on it. Pt refused to allow me to take it down today to assess. Will ask nsg to reach out to [facility] to get more information. The pt and his Paige tell me the [facility] is changing the dsg and monitoring it Anemia 09/01/2023 Assessment & Plan (09/01/2023 9:38 AM EST): He had a mild anemia while in patient- this is a change from previous will draw labs Supplemental oxygen dependent 03/11/2023 Assessment & Plan (09/01/2023 9:30 AM EST): Wears cont home O2 2-3 liters via nasal prongs rachna well. 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 01/30/20 23 Irritability 01/29/2023 Pulmonary emphysema 11/04/2022 11/04/2022 Vitamin D deficiency 11/04/2022 11/04/2022 Low vitamin B12 level 11/04/2022 Assessment & Plan (09/01/2023 9:30 AM EST): Last check December 2022, therapeutic level at 444 RBBB 07/10/2020 Osteopenia 07/10/2020 Multinodular thyroid 07/14/2018 Bilateral renal cysts 07/14/2018 Allergic rhinitis 01/11/2018 Chronic anxiety 01/11/2018 Essential hypertension 01/11/2018 Assessment & Plan (09/01/2023 9:29 AM EST): Controlled cont same History of DVT (deep vein thrombosis) 01/11/2018 Ganglion cyst of volar aspect of left wrist 12/26 History of prostate cancer 01/11/2018 History of stroke 01/11/2018 Lumbar spinal stenosis 01/11/2018 Mixed hyperlipidemia 01/11/2018 Psychophysiological insomnia 01/11/2018 PVD (peripheral vascular disease) 01/11/2018 Seasonal allergies 01/11/2018 Spinal stenosis of lumbar region 01/11/2018 Trochanteric bursitis of right hip 01/11/2018 History of prostatectomy 01/11/2018 Immunizations Immunization Administration Dates Next Due COVID-19 (Pre-04/19) Moderna Vaccine, mRNA, PF 08/30/2020,08/02/2020 INFLUENZA, SPLIT VIRUS, TRIVALENT PF 04/15/2021 INFLUENZA, SPLIT VIRUS, TRIV ALENT W/ PRESERVATIVE IM 04/08/2016,03/22/2012,03/17/2011 Influenza High-Dose Quadriva lent Preservative Free IM 04/19/2022,04/17/2021 Influenza High-Dose Trivalen t Preservative Free IM 03/30/2019,03/30/2018,03/24/2017,04/04,03/20/2014,04/07/2013 Influenza Quadrivalent Adjuv anted Preservative Free IM 03/27/2020 Influenza Quadrivalent Prese rvative Free IM 03/23/2023 Influenza, Unspecified Formulation 03/11/2010 Pneumococcal conjugate PCV13 10/10/2014 Pneumococcal polysaccharide PPSV23 04/10/2008 Tdap 04/07/2013 Family History Medical History Relation Comments Diabetes mellitus Father CV disease Mother Hypertension Mother Hypertension Son Relation Status Comments Daughter Alive Father Mother Son Alive Social History Tobacco Use Types Packs/Day Years Used Date Smoking Tobacco: Former Cigarettes 0.5 15 1 967 - 1982 Smokeless Tobacco: Never Tobacco Cessation:Counseling Given: Not Answered Alcohol Use Standard Drinks/Week Comments No 0 [...] on file Sexual Orientation Not on file Last Filed Vital Signs Vital Sign Reading Time Taken Comments Blood Pressure 112/63 09/01/2023 8:41 AM EST Pulse 76 09/01/2023 8:41 AM EST on 3 liters of O2 Temperature 36.1 C (96.9 F) 09/01/2023 8:41 AM EST Respiratory Rate 16 03/11/2023 12:5 0 PM EDT Oxygen Saturation 99% 09/01/2023 8:4 1 AM EST on 3 liters of O2 Inhaled Oxygen Concentration - - Weight 74.3 kg (163 lb 12.8 oz) 09/01/2023 8:41 AM EST Height 174 cm (5' 8.5 ) 09/01/2023 8:41 AM EST Body Mass Index 24.54 09/01/2023 8:41 AM EST Plan of Treatment Health Maintenance Due Date Last Done Comments ZOSTER VACCINES (1 of 2) 1990 RSV VACCINE (1 - 1-dose 75+ series) 2015 Adult Td,Tdap Booster 04/07/2023 04/07/2013 DEPRESSION SCREENING 11/05/2023 11/04/2022, 11/05/19 BLOOD PRESSURE 03/03/2024 09/01/2023 CREATININE LEVEL 08/25/2024 08/26/2023, , 03/24/2023, Additional history exists POTASSIUM LEVEL 08/25/2024 08/26/2023, 03/29, 03/24/2023, Additional history exists INFLUENZA VACCINE (#1) 2025 , 04/19/2022, 04/17/2021, Additional history exists COVID-19 VACCINE ( season) 2025 06/16/2023, 05/05/2022, 01/13/2022, Additional history exists PNEUMOCOCCAL VACCINES (50+ years) Completed 10/10/2014, 04/10/2008 HEPATITIS A VACCINES Aged Out No long er eligible based on patient's age to complete this topic HIB VACCINES Aged Out No longer eligi ble based on patient's age to complete this topic MENINGOCOCCAL VACCINES (ACWY) Aged Out No longer eligible based on patient's age to complete this topic MENINGOCOCCAL VACCINES (B) Aged Out N o longer eligible based on patient's age to complete this topic Medical Devices Not on file Procedures Procedure Name Priority Date/Time Associated Diagnosis Comments OUTSIDE POTASSIUM LEVEL Routine 08/26/2023 OUTSIDE SERUM CREATININE LEVEL Routine 08/26/2023 from Last 3 Months or Most Recently Relevant to Health Maintenance Results * Outside Potassium Level (08/26/2023) Potassium level - External 4.1 3.4 - 5.0 mmol/L Historical Provider MD LAB BLOOD ORDERABLES Elena l Result * Outside Serum Creatinine Level (08/26/2023) Creatinine, serum - External 1.16 0.8 - 1.3 mg/dL Historical Provider MD LAB BLOOD ORDERABLES Elena l Result from Last 3 Months or Most Recently Relevant to Health Maintenance Insurance MEDICARE PART A & B [facility] MEDICARE [place] [address] [place] [phone] MEDICARE PART A & B [facility] MEDICARE SUPPLEMENT MEDICARE PART A & B [facility] MEDICARE SUPPLEMENT MEDICARE PART A & B Member Subscriber Plan / Payer (Ef fective 2005-Present) Name:PennyariannaKvng Member ID:[id number] Relation to Subscriber:Self Name:DominickwaltKvng keller Subscriber ID:[id number] Payer ID:[id number] Group ID:Not on file Type:Medicare Address: [employer] [address] [place] [phone] [facility] MEDICARE [place] [address] [place] [phone] MEDICARE PART A & B Member Subscriber Plan / Payer (Ef fective 2005-Present) Name:Kvng Leyva Member ID:[id number] Relation to Subscriber:Self Name:Kvng Leyva Subscriber ID:[id number] Payer ID:[id number] Group ID:Not on file Type:Medicare Address: [employer] [address] MEDICARE SUPPLEMENT MEDICARE PART A & B MEDICARE SUPPLEMENT MEDICARE PART A & B [facility] MEDICARE SUPPLEMENT [facility] Address: [facility] [facility] [employer] [address] [place] [phone] MEDICARE PART A & B [facility] MEDICARE SUPPLEMENT MEDICARE PART A & B [facility] MEDICARE SUPPLEMENT Advance Directives For more information, please contact: [phone] (9AM - 5PM [facility], Wednesday-Wednesday) Documents on File Type Date Recorded Patient Employment Consultant Expl anation MOLST 04/03/2019 MOLST Care Teams Judicial Clerk Relationship Specialty Start Date End Date Unknown, Unknown, PCP - General 09/08/23 Cedric Sarabia MD [address] [place] [address] [address] [place] [address] Pulmonary Disease 09/18/22 Additional Source Comments The information contained in this document represents components of the legal health record. It is not the complete legal health record.[facility]
--- OUTSIDE RECORDS SUMMARY | 2025-03-12 09:40 | XMS_ITS | Encounter Summary ---
Author Organization [facility] Address [address] [place] [address] Phone Care Team Providers Care Radiology Clerk Name Role Phone Cedric Sarabia MD Unavailable [phone] Unknown, Unknown Primary Care Provider Manuel mays Encounter Details Date Type Department Care Team (Late Contact Info) Description 10/05/2023 Telephone [facility] Internal Medicine [address] [place] [address] Unknown, Unknown, MD Social History Tobacco Use [...] documented as of this encounter Care Teams Radiology Clerk Relationship Specialty Start Date End Date Unknown, Unknown, MD PCP - General 09/08/23 Cedric Sarabia MD [address] [place] [address] [place] [address] Pulmonary Disease 09/18/22 documented as of this encounter Additional Source Comments The information contained in this document represents components of the legal health record. It is not the complete legal health record.[facility]
[2025-03-12 11:00] LABS: Appearance Urine Clear; Glucose Urine UA Negative (Negative); PH 7.0 (5.0-9.0); Specific Gravity - Urine 1.010 (1.005-1.025)
--- NOTE | 2025-03-12 11:39 | PC.NURSE ---
called patient's (christine) in regards to transportation as patient is up for d/c - per pt's , pt will need BLS transportation d/t being home O2 dependent. receptionist secretary notified. pickup ETA 12:30-1. charge aware.
--- NOTE | 2025-03-12 12:56 | PC.NURSE ---
report given to DARRICK Cornejo at this time. pt leaving [facility] ED at this time.
== END 2025-03-12 12:56 | disposition home or self-care (01) ==
PROVIDERS: Physician Assistant Medical; Emergency Provider Emergency Medicine
DX: M79.671 Pain in right foot (principal); M79.661 Pain in right lower leg; F03.90 Unspecified dementia, unspecified severity, without behavioral disturbance, psychotic disturbance, mood disturbance, and anxiety; J44.9 Chronic obstructive pulmonary disease, unspecified; I11.0 Hypertensive heart disease with heart failure; I50.32 Chronic diastolic (congestive) heart failure; Z79.01 Long term (current) use of anticoagulants; Z79.899 Other long term (current) drug therapy; Z86.718 Personal history of other venous thrombosis and embolism
CPT/HCPCS: 36415; 71046; 80053; 81003; 83735; 83880; 84484; 85025; 93971; 99284; 99285

== ENCOUNTER → 2025-03-12 07:54 | Outpatient (BNV) | payer MEDICARE, SELFPAY | PROVIDERS: Emergency Provider Emergency Medicine; Visit Provider Radiology Diagnostic Radiology | DX: R22.41 Localized swelling, mass and lump, right lower limb (principal); I72.4 Aneurysm of artery of lower extremity; J44.9 Chronic obstructive pulmonary disease, unspecified | CPT/HCPCS: 71046; 93971 ==

== ENCOUNTER 2025-04-17 13:16 | Outpatient (AMB) | payer MEDICARE, SELFPAY ==
[2025-04-17 13:25] VITALS: BP 120/60; PULSE 77; O2SAT 99; BMI 24.5
--- NOTE | 2025-04-17 13:25 | A.OFFVIS_ITS ---
Vital Signs 04/17/25 13:25 Height 5 ft 10 in Weight 171 lb 0.96 oz BMI 24.5 BP 120/60 Blood Pressure Location Lt brachial Position Sitting Pulse 77 Pulse Source Pulse Oximeter Pulse Oximetry (%) 99 Oxygen Delivery Method Nasal Cannula Oxygen Flow Rate 3 Intake Visit Reasons: Emphysema Intake Note: pt is here for follow up and states he gets tired with walking and his breathing is not good. Loan Approver Required: No Soft Drink Powder Mixer: Soft Drink Powder Mixer offered & declined Allergies No Known Allergies Allergy (Mild, Verified 04/17/25 13:40) NONE cats dogs ragweed dust pollen Allergy (Unknown, Uncoded 04/17/25 13:40) Unknown Medication List - Last Reconciled 04/17/25 by Cedric Sarabia MD albuterol sulfate 90 mcg/actuation (ProAir HFA) 2 puffs inhalation Q6H PRN 30 days apixaban 5 mg PO BID 30 days atorvastatin 10 mg PO BEDTIME 90 days cholecalciferol (vitamin D3) 50 mcg PO DAILY 90 days clopidogrel 75 mg PO DAILY fluticasone furoate-vilanterol 100-25 mcg/dose (Breo Ellipta) 1 ea inhalation DAILY furosemide 20 mg PO QAM ipratropium-albuterol 0.5 mg-3 mg(2.5 mg base)/3 mL 3 mL inhalation Q4-6H PRN lisinopril 20 mg PO DAILY 90 days melatonin 6 mg (2 x 3 mg) PO BEDTIME PRN memantine 10 mg PO BID olanzapine (Zyprexa) 2.5 mg PO QPM PRN quetiapine mg PO quetiapine mg PO DAILY tiotropium bromide 2.5 mcg/actuation (Spiriva Respimat) 2 puffs inhalation DAILY trazodone 50 mg PO BEDTIME PRN Do you need a note to return to daycare/school/sports/work: No HPI HPI Emphysema: Details: THIS 84 YEARS OLD GENTLEMAN IS HERE FOR HIS PULMONARY FOLLOW-UP AFTER 6 MONTHS. DURING THE PAST 6 MONTHS HE HAS REMAINED STABLE AND DID NOT GET ANY RESPIRATORY INFECTION OR ANY ACUTE EXACERBATION. HOWEVER HE AND ESPECIALLY HIS DO COMPLAINED THAT HE GETS SHORT OF BREATH WHEN HE WALKS AROUND. ACCORDING TO HIM THIS IS HIS USUAL AND NOT ANYTHING NEW. HE DOES HAVE SOME COUGH AND EXPECTORATION ONCE IN A WHILE. HE IS ON MINIMAL MEDICATION WHICH IS ONLY BREO 100-25 ONCE A DAY. HE DOES HAVE NEBULIZER AT HOME WITH SOLUTION OF IPRATROPIUM AND ALBUTEROL AND HAS BEEN USING ONLY ONCE A DAY, THOUGH HE WAS TOLD TO USE 3 TIMES A DAY. HE DOES USE O2. 2 L/MINUTE 24 HOURS A DAY [facility] Medical History Insomnia Pure hypercholesterolemia Essential hypertension Pneumothorax after biopsy Hypoxemia COPD (chronic obstructive pulmonary disease) Pulmonary emphysema Osteopenia Hyperparathyroidism Osteoporosis Vitamin D deficiency Multinodular thyroid Surgical History Hx of prostatectomy Hx of hernia repair Family History Father No problems noted. Mother No problems noted. Social History Household Members: Family Household Members Other:: 2 Housing: House Do you presently have visiting nurse or other home services: Yes Alcohol intake: never Comment: sitter Patient Tobacco Use Status: Former Tobacco user Tobacco use type: Cigarette e-Cigarette/Vaping Use: Never Used Second Hand Smoke Exposure: Yes Advance Directives Date on File: 02/28/23 service: No Current occupational status: retired Sexual orientation: Straight/Heterosexual Cognitive needs: Yes Hearing needs: No Vision needs: No Review of Systems Const All systems reviewed & are unremarkable except as noted in HPI and below Reports weakness (MINIMAL RESIDUAL WEAKNESS OF THE LEFT UPPER EXTREMITY) Eyes Reports no additional complaints ENT Reports no additional complaints Card Denies chest pain, Denies irregular heart rhythm, Denies leg edema and Reports dyspnea on exertion (MILD) Resp Reports as per HPI and Reports dyspnea on exertion (MILD) GI Reports no additional complaints Reports no additional complaints Musc Reports abnormal gait (HE USES WALKER,) and Reports back pain Skin/Breast Reports rash (HE HAS HAD NONSPECIFIC ERYTHEMATOUS RASH ON HIS BACK ) Neuro Reports abnormal gait (HE USES WALKER,) and Reports weakness (MINIMAL RESIDUAL WEAKNESS OF THE LEFT UPPER EXTREMITY) Psych Reports anxiety (MILD, HAS TO USE ALPRAZOLAM ONCE IN A WHILE) Endo Reports no additional complaints Isidoro/Lymph Reports no additional complaints Aller/Immun Reports no additional complaints Physical Exam Vital Signs: Last Vital Signs Pulse 77 04/17/25 13:25 BP 120/60 04/17/25 13:25 Pulse Ox 99 04/17/25 13:25 Oxygen Delivery Method Nasal Cannula 04/17/25 13:25 Oxygen Flow Rate 3 04/17/25 13:25 BMI result Body Mass Index 24.5 Const General: comfortable, no acute distress, alert and awake Orientation/consciousness: patient oriented x3 HEENT Head: Yes normal to inspection General nose exam: No nasal polyps present and No nasal discharge present Face and sinus: Yes sinuses nontender Mouth: oropharynx normal Throat: Yes posterior oropharynx normal Eyes General: appearance normal, both eyes and all related structures Neck Neck: Yes normal visual inspection, Yes no lymphadenopathy, Yes trachea midline and Yes no JVD Thyroid: Thyroid normal Chest Chest palpation & inspection: normal inspection of the chest, normal palpation of entire chest wall and no tenderness Resp Other: PERCUSSION NOTE IS HYPER-RESONANT, BREATH SOUNDS ARE DISTANT WITH PROLONGED EXPIRATORY PHASE BUT EQUAL ON BOTH SIDES. NO AUDIBLE WHEEZES OR CREPITATIONS. Cardio Palpation: normal PMI Rate: regular rate Rhythm: regular rhythm Heart sounds: no gallops and no murmurs GI Palpation (GI): Soft to palpation, nontender, No hepatosplenomegaly present and no masses Auscultation: normal bowel sounds Back/Spine/Pelvis Thoracic/Lumbar Spine: thoracic and lumbar spine normal to inspection and thoraco-lumbar ROM limited Skin General skin exam: no rashes or lesions noted and other (HE HAS MULTIPLE ZENOBIA THEMATOUS DISC I ADDED AREAS ON THE WHOLE BACK) Neuro General: patient oriented x3, No gait normal (GAIT IMPAIRED DUE TO BACK PAIN, AND HE USES WALKER) and no focal motor deficits Cranial nerves: Yes CN's II-XII intact bilaterally Extrem General: Yes normal to inspection, Yes no clubbing, cyanosis or edema and Yes no calf tenderness Psych Appearance: grossly normal and well kempt Speech and movement: Normal speech and movement present Assessment & Plan Assessment & Plan (1) COPD (chronic obstructive pulmonary disease): Comment: He does have rather severe degree of obstructive airway disorder. Was treated for an acute exacerbation in February 2023 and in 2023 . Now he has remained relatively stable after that . Code(s): J44.9 - Chronic obstructive pulmonary disease, unspecified Category: Medical Qualifiers: COPD type: emphysema Emphysema type: unspecified Qualified Code(s): J43.9 - Emphysema, unspecified Plan: Continued use Breo 100-25 1 inhalation daily Ipratropium-albuterol solution in the nebulizer , Q 6 hours while awake, and may use it at least 3 times a day. (2) Chronic respiratory failure with hypoxia: Comment: Patient has chronic hypoxemia. Nocturnal and on exercise. Code(s): J96.11 - Chronic respiratory failure with hypoxia Category: Medical Plan: Advised to continue using O2 2 L/minute at rest and at night and he may increase to 3 L/minute when he goes outdoors. Medications: Changed From memantine 5 mg PO BID 60 tabs 0RF 30 days To memantine 10 mg PO BID Coding Level of Care Code Est Pt Level 3 (11549) Diagnoses Pulmonary emphysema, unspecified emphysema type J43.9 COPD type: emphysema Emphysema type: unspecified Chronic respiratory failure with hypoxia J96.11
== END 2025-04-17 13:43 | disposition home or self-care (01) ==
LOC: HO.HPS 13:18
PROVIDERS: PCP Internal Medicine; Visit Provider Internal Medicine
DX: J43.9 Emphysema, unspecified (principal); J96.11 Chronic respiratory failure with hypoxia
CPT/HCPCS: 99213

== ENCOUNTER → 2025-04-17 13:16 | Outpatient (BNVA) | payer MEDICARE, SELFPAY | PROVIDERS: PCP Internal Medicine; Visit Provider Internal Medicine | DX: J96.11 Chronic respiratory failure with hypoxia (principal); J43.9 Emphysema, unspecified | CPT/HCPCS: 99212 ==

== ENCOUNTER 2025-05-01 10:10 | Outpatient (REF) | payer MEDICARE, SELFPAY ==
--- OUTSIDE RECORDS SUMMARY | 2025-05-01 11:58 | XMS_ITS | Encounter Summary ---
Author Organization [facility] Address [address] [place] [address] Phone Care Team Providers Care Tour Operator Name Role Phone Cedric Sarabia MD Unavailable [phone] Unknown, Unknown Primary Care Provider Manuel mays Encounter Details Date Type Department Care Team (Late Contact Info) Description 10/05/2023 Telephone [facility] Internal Medicine [address] [place] [address] Unknown, Unknown, MD Social History Tobacco Use [...] documented as of this encounter Care Teams Tour Operator Relationship Specialty Start Date End Date Unknown, Unknown, MD PCP - General 09/08/23 Cedric Sarabia MD [address] [place] [address] [place] [address] Pulmonary Disease 09/18/22 documented as of this encounter Additional Source Comments The information contained in this document represents components of the legal health record. It is not the complete legal health record.[facility]
--- OUTSIDE RECORDS SUMMARY | 2025-05-01 11:58 | XMS_ITS | Clinical Summary ---
Author Organization [facility] Address [address] [facility] [address] [place] [id number] Phone Care Team Providers Care Fur Dry Cleaner Hand Name Role Phone Cedric Sarabia MD Unavailable [phone] Unknown, Unknown Primary Care Provider Manuel mays [...] pleural effusion. They will get this at [facility] and were advised today. He also has pulm f/u in the next few weeks. Will ask nsg to call and inquire what date is Pleural effusion 09/01/2023 Assessment & Plan (09/01/2023 9:41 AM EST): This was after a thoracentesis found on imaging during his admit to [facility] for RLL covid pna-/ It was re checked and resolved as of 08/30/23 CXR. Pressure injury of skin of trochanteric region o f right hip 09/01/2023 Assessment & Plan (09/01/2023 9:36 AM EST): He has a sore on his right hip. There is a [id number] on it. Pt refused to allow me [...] Maintenance Insurance MEDICARE PART A & B [facility] MEDICARE SUPPLEMENT MEDICARE PART A & B [facility] MEDICARE SUPPLEMENT MEDICARE PART A & B [facility] MEDICARE SUPPLEMENT MEDICARE PART A & B [facility] MEDICARE SUPPLEMENT MEDICARE PART A & [place] [address] [place] [address] MEDICARE SUPPLEMENT MEDICARE PART A & B MEDICARE SUPPLEMENT MEDICARE PART A & B [facility] MEDICARE SUPPLEMENT MEDICARE PART A & B [facility] MEDICARE SUPPLEMENT MEDICARE PART A & B [facility] MEDICARE SUPPLEMENT Advance Directives For more information, please contact: [phone] (9AM - 5PM [facility], Wednesday-Wednesday) Documents on File Type Date Recorded Patient 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 It is not the complete legal health record.[facility]
[2025-05-01 13:21] LABS: MANUAL DIFF FLAG NO
[2025-05-01 13:25] LABS: Hematocrit 40.6 % (42.0-52.0); Hemoglobin 12.8 g/dl (14.0-18.0); Imm Gran Abs Auto 0.08 X10*3/uL (0.00-0.03); Imm Gran Pct Auto 0.9 % (0.0-0.4); Lymphocytes Absolute Auto 1.2 X10*3/uL (1.2-4.9); Mean Corpuscular HGB Conc 31.5 g/dl (31.0-36.0); Mean Corpuscular Hemoglobin 31.8 pg (27.0-33.0); Mean Corpuscular Volume 101.0 fL (80.0-98.0); NRBC Abs Auto 0.000 X10*3/uL (0.0-0.012); NRBC Pct Auto 0.0 /100WBC (0.0-0.2); Platelet Count 226 X10*3/uL (160-400); Red Blood Count 4.02 X10*6/uL (4.60-5.80); White Blood Count 9.0 X10*3/uL (4.8-10.8)
[2025-05-01 13:50] LABS: Alanine Aminotransferase 17 U/L (0-40); Albumin Level 3.9 g/dL (3.5-5.0); Alkaline Phosphatase 124 U/L (39-117); Anion Gap 9 (12-20); Aspartate Amino Transferase 30 U/L (5-37); Blood Urea Nitrogen 25 mg/dL (9-16); Calcium 8.8 mg/dL (8.4-10.2); Carbon Dioxide 29 mmol/L (22-29); Chloride 108 mmol/L (96-108); Cholesterol 126 mg/dL (<200); Estimated Glomerular Filt Rate 49; HDL Cholesterol 51 mg/dL (>40); Potassium 4.4 mmol/L (3.3-5.1); Sodium 142 mmol/L (135-145); Total Protein 7.1 g/dL (6.5-8.0); Triglycerides 57 mg/dL (<150)
[2025-05-01 14:14] LABS: Folate 7.9 ng/mL (> or = 4.0); Vitamin B12 309 pg/mL (200-900)
== END 2025-05-01 10:11 | disposition home or self-care (01) ==
LOC: HO.HMGCLDS 10:10
PROVIDERS: PCP Internal Medicine; Visit Provider Internal Medicine
DX: E53.8 Deficiency of other specified B group vitamins (principal); E55.9 Vitamin D deficiency, unspecified; R73.9 Hyperglycemia, unspecified; D64.9 Anemia, unspecified; E78.00 Pure hypercholesterolemia, unspecified
CPT/HCPCS: 36415; 80053; 80061; 82306; 82607; 82746; 83036; 84443; 85025

== ENCOUNTER 2025-05-16 12:29 | Outpatient (AMB) | payer MEDICARE, SELFPAY ==
[2025-05-16 12:49] VITALS: BP 138/90; PULSE 78; O2SAT 96; BMI 24.8
--- NOTE | 2025-05-16 12:49 | MHC.PC.OV ---
Vital Signs 05/16/25 12:49 Height 5 ft 10 in Weight 173 lb 2 oz BMI 24.8 BP 138/90 H Blood Pressure Location Lt brachial Position Sitting Pulse 78 Pulse Source Pulse Oximeter Pulse Oximetry (%) 96 Oxygen Delivery Method Nasal Cannula Oxygen Flow Rate 3 Intake Visit Reasons: 4 month f/u Accompanied by: Self / Same As Patient Allergies No Known Allergies Allergy (Mild, Verified 05/16/25 13:40) NONE cats dogs ragweed dust pollen Allergy (Unknown, Uncoded 05/16/25 13:40) Unknown Medication List - Last Reconciled 05/17/25 by Alex Harvey MD albuterol sulfate 90 mcg/actuation (ProAir HFA) 2 puffs inhalation Q6H PRN 30 days apixaban 5 mg PO BID 30 days atorvastatin 10 mg PO BEDTIME 90 days cholecalciferol (vitamin D3) 50 mcg PO DAILY 90 days clopidogrel 75 mg PO DAILY 90 days fluticasone furoate-vilanterol 100-25 mcg/dose (Breo Ellipta) 1 inh inhalation DAILY furosemide 20 mg PO QAM ipratropium-albuterol 0.5 mg-3 mg(2.5 mg base)/3 mL 3 mL inhalation Q4-6H PRN lisinopril 20 mg PO DAILY 90 days melatonin 6 mg (2 x 3 mg) PO BEDTIME PRN memantine 10 mg PO BID quetiapine 25 mg PO DAILY quetiapine 150 mg PO BEDTIME PRN tiotropium bromide 2.5 mcg/actuation (Spiriva Respimat) 2 inhalations inhalation DAILY trazodone 50 mg PO BEDTIME PRN Tobacco use date assessed: 01/11/25 Fall risk assessment: No Falls in past year Last assessed Fall Risk: 05/16/25 Dental Screening Dental Screen Date: 05/16/25 Did you have a dental visit in the last 12 months?: Yes Did you have a dental problem in the last 6 months where you did not have access to dental care?: No Was dental information given to patient?: Patient has dentist HPI 4 month f/u HPI Details Patient comes in today for his follow up visit States that he currently feels okay but his states that his memory has been getting worse and he has on and off periods of confusion He denies any headaches or dizziness Denies any chest pains; he reports (+) BUSTAMANTE but states that this is his usual baseline and has no increased shortness of breath lately He continues to use his oxygen and tends to keep it on for most of the day although he states that he takes it off for a while when he can No nausea/vomiting, no abdominal pain No change in bowel habits noted He had his follow up labs done a couple of weeks ago - to discuss his results [facility] Medical History Insomnia Pure hypercholesterolemia Essential hypertension Pneumothorax after biopsy Hypoxemia COPD (chronic obstructive pulmonary disease) Pulmonary emphysema Osteopenia Hyperparathyroidism Osteoporosis Vitamin D deficiency Multinodular thyroid Surgical History Hx of prostatectomy Hx of hernia repair Family History Father No problems noted. Mother No problems noted. 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 1. Little interest or pleasure in doing things: several days 2. Feeling down, depressed, or hopeless: not at all 3. Trouble falling or staying asleep, or sleeping too much: not at all 4. Feeling tired or having little energy: more than half the days 5. Poor appetite or overeating: not at all 6. Feeling bad about yourself - or that you are a failure or have let yourself or your family down: not at all 7. Trouble concentrating on things, such as reading the newspaper or watching television: not at all 8. Moving or speaking so slowly that other people could have noticed. Or the opposite - being so fidgety or restless that you have been moving around a lot more than usual: not at all 9. Thoughts that you would be better off or of hurting yourself in some way: not at all Total score: 3 Depression Screening Interpretation: Positive Depression Screening Follow-up: Existing condition and In treatment Depression Screening Done: Yes 21280 - PHQ-9 Billing: Yes Source: Developed by Drs. Hari Fraser, Cally Jeter, Pascual Hawthorne and colleagues, with an educational lynda from [employer]. Thrive Questionnaire Date Thrive assessed: 05/16/25 I am a: Patient What is your living situation today?: I have a steady place to live Within the past 12 months, did the food you bought not last and you didn't have the money to get more?: Never true Within the past 12 months, did you worry whether your food would run out before you got money to buy more?: Never true Do you have trouble paying for medicines?: No Do you have trouble getting transportation to medical appointments?: No Do you have trouble paying your heating and electricity bill?: No Do you have trouble taking care of your child, family member or friend?: No Do you have trouble with day-to-day activities such as bathing, preparing meals, shopping, managing finances, etc.?: No Are you currently unemployed and looking for a job?: Yes Are you interested in more education?: No Please select the resources that you would like help with: None Currently or been in a relationship where the following occur: No concerns reported THRIVE Score: 0 AUDIT C Alcohol Use Questionnaire (AUDIT-C) 1. How often do you have a drink containing alcohol?: Never 3. How often do you have six or more drinks on one occasion?: Never Total Score: 0 Score Reviewed/Action Taken: Yes RAMONA-7 AMB Questionnaire RAMONA-7 Date RAMONA - 7 assessed: 05/16/25 Feeling nervous, anxious, or on edge: 2 = More than half the days Not being able to stop or control worryin = Not at all Worrying too much about different things: 0 = Not at all Trouble relaxin = Not at all Being so restless that it is hard to sit still: 0 = Not at all Becoming easily annoyed or irritable: 2 = More than half the days Feeling afraid as if something awful might happen: 0 = Not at all Total RAMONA-7 score (0-4 normal; 5-9 mild; 10-14 moderate; 15-21 severe): 4 Source: Developed by Drs. Hari Fraser, Cally Jeter, Pascual Hawthorne and colleagues, with an educational lynda from [employer]. Review of Systems Const Denies chills, Reports fatigue, Denies fever(s) and Denies headache(s) ENT Denies dysphagia, Denies dizziness, Denies otalgia, Denies headache(s), Denies neck pain, Denies odynophagia and Denies sore throat Card Denies chest pain, Denies lightheadedness, Denies palpitations and Reports dyspnea on exertion (has oxygen on for most of the day) Resp Denies cough, Reports dyspnea on exertion (has oxygen on for most of the day) and Denies wheezing GI Denies abdominal pain, Denies constipation, Denies dysphagia, Denies heartburn, Denies diarrhea, Denies nausea, Denies odynophagia and Denies vomiting Denies difficulty urinating, Denies dysuria, Denies nocturia and Denies urinary frequency Musc Denies back pain and Denies neck pain Skin/Breast Denies rash Neuro Reports confusion (on and off), Denies dizziness, Denies headache(s) and Reports memory loss Psych Reports confusion (on and off) and Reports memory loss Endo Reports fatigue and Denies palpitations Aller/Immun Denies wheezing Physical exam (Primary Care) Vital Signs: Last Vital Signs Pulse 78 05/16/25 12:49 BP 138/90 H 05/16/25 12:49 Pulse Ox 96 05/16/25 12:49 Oxygen Delivery Method Nasal Cannula 05/16/25 12:49 Oxygen Flow Rate 3 05/16/25 12:49 BMI result Body Mass Index 24.8 Tobacco/Smoking Status: Tobacco use Status Tobacco use date assessed 01/11/25 05/16/25 12:50 Patient Tobacco Use Status Former Tobacco user 05/16/25 12:50 Tobacco use type Cigarette 05/16/25 12:50 e-Cigarette/Vaping Use Never Used 05/16/25 12:50 PHQ-9: PHQ-9 Score PHQ-9: Total score 3 05/16/25 19:38 Depression Screening Interpretation: Positive Depression Screening Follow-up: Existing condition and In treatment Thrive Assessment: Date of Thrive Assessment Date Thrive assessed 05/16/25 05/16/25 12:55 Currently or been in a relationship where the following occur: No concerns reported Const General: no acute distress, alert and confusion (on and off) Orientation/consciousness: confusion (on and off) HENMT Ears: TM's normal bilaterally and EAC's normal Throat: Yes posterior oropharynx normal and Yes tonsils normal (no TP congestion noted) Neck Neck: Yes supple and No lymphadenopathy Thyroid: Thyroid normal Resp Other: (+) oxygen via nasal cannula at 2,5 LPM Auscultation: no crackles, no rales, rhonchi (occasional) throughout, no wheezes and diminished lung sounds bilateral Cardio Rate: regular rate Rhythm: regular rhythm Heart sounds: no murmurs GI Palpation (GI): Soft to palpation and nontender Auscultation: normal bowel sounds General: Yes no CVA tenderness Back/Spine/Pelvis Back: no CVA tenderness Thoracic/Lumbar Spine: No lumbar spinal tenderness Skin Rashes: no rashes Neuro General: confusion (on and off) Extrem General: No clubbing, No cyanosis and Yes edema (1+ bipedal edema) Results Reviewed Results Reviewed: Laboratory Tests 05/01/25 10:16 WBC 9.0 Hgb 12.8 L Hct 40.6 L Plt Count 226 Sodium 142 Potassium 4.4 Creatinine 1.39 Estimated GFR 49 Fasting Glucose 99 Hemoglobin A1c % 5.4 Calcium 8.8 AST 30 ALT 17 Triglycerides 57 Cholesterol 126 LDL Cholesterol, Calc 64 HDL Cholesterol 51 Vitamin B12 309 25-OH Vitamin D Total 20.6 L TSH 2.09 Coding Level of Care Code Est Pt Level 4 (99294) Diagnoses Chronic respiratory failure with hypoxia J96.11 Acute deep vein thrombosis (DVT) of other specified vein of both lower extremities I82.493 Affected thrombotic vein of extremity: other lower extremity vein Chronicity: acute DVT location: lower extremity Laterality: bilateral Bilateral lower extremity edema R60.0 Essential hypertension I10 Pure hypercholesterolemia E78.00 Vitamin D deficiency E55.9 Hyperparathyroidism E21.3 Multinodular thyroid E04.2 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 Nocturnal and on exercise. Code(s): J96.11 - Chronic respiratory failure with hypoxia Category: Medical Plan: Continue Breo Ellipta 100-25 mcg 1 inhalation QD, Spiriva Respimat 2.5 mcg 2 inhalations QD and Albuterol HFA 1 to 2 inhalations Q 6 hours PRN He also does Duoneb updrafts at home every 4 to 6 hours PRN Patient is currently on oxygen inhalation at 2.5 LPM Follow up with Dr. Sarabia as scheduled for continuing pulmonary follow up and management (2) DVT (deep venous thrombosis): Code(s): I82.409 - Acute embolism and thrombosis of unspecified deep veins of unspecified lower extremity Category: Medical Qualifiers: Affected thrombotic vein of extremity: other lower extremity vein Chronicity: acute DVT location: lower extremity Laterality: bilateral Qualified Code(s): I82.493 - Acute embolism and thrombosis of other specified deep vein of lower extremity, bilateral Plan: Venous doppler of both lower extremity done at the ER in January 2024 revealed (+) acute occlusive thrombus within the distal right popliteal vein and non-occlusive thrombus within the proximal right popliteal vein with no evidence of left-sided deep venous thrombosis He also had a left superficial femoral artery proximal and mid occlusion with reconstitution of the distal segment via collateral Continue Apixaban 5 mg BID Follow up with vascular surgery as scheduled (3) Bilateral lower extremity edema: Code(s): R60.0 - Localized edema Category: Medical Plan: Continue Furosemide 20 mg Q AM (4) Essential hypertension: Code(s): I10 - Essential (primary) hypertension Category: Medical Plan: Reinforced low sodium diet - goal is systolic BP of at least 140 mm or less Continue Lisinopril 20 mg QD (5) Pure hypercholesterolemia: Code(s): E78.00 - Pure hypercholesterolemia, unspecified Category: Medical Plan: Results of his labs done a couple of weeks ago reviewed and discussed with patient Reinforced low cholesterol diet Continue Atorvastatin 10 mg QD Will recheck his labs and fasting lipids in 4 months for follow up (6) Vitamin D deficiency: Code(s): E55.9 - Vitamin D deficiency, unspecified Category: Medical Plan: Continue Vitamin D3 2000 units QD (7) Hyperparathyroidism: Code(s): E21.3 - Hyperparathyroidism, unspecified Category: Medical Plan: Patient's labs were reportedly consistent with normocalcemic hyperparathyroidism when he was last seen by endocrinology in 2019 His DEXA at the time revealed (+) osteopenia of the hip and the plan then was to repeat his labs and also check a 24 hour urine collection as well as a DEXA of the forearm but patient appears to have been lost to follow up since and also has not had a bone density done in the past 5 years His PTH level was elevated at 142 on his recent labs but his Vitamin D level was also low then and continues to be low on his recent labs Will recheck his PTH level when his Vitamin D deficiency is corrected and if it is still elevated at the time, will consider referral for possible parathyroidectomy (8) Multinodular thyroid: Code(s): E04.2 - Nontoxic multinodular goiter Category: Medical Plan: He has a multinodular thyroid and used to see endocrinology but does not appear to have been back to see endocrinology since 2019 His 1.2 cm nodule was found to be spongiform thus no FNA biopsy was performed He has been advised that thyroid nodules are typically slow growing, and it would not be unreasonable to not do any further surveillance US Patient elected to proceed with yearly surveillance US and to reassess for any changes to his nodules that might warrant FNA biopsy but it does not look like he had any follow up thyroid US since 2019, and he prefers to hold off on any thyroid US at this time (9) Multifactorial dementia: Code(s): F03.90 - Unspecified dementia, unspecified severity, without behavioral disturbance, psychotic disturbance, mood disturbance, and anxiety Category: Medical Plan: Continue Memantine 10 mg BID Continue Quetiapine 25 mg QD and 150 mg Q HS for agitation Follow up with psychiatry (Dr. John Pandey in [place]) as scheduled (10) Insomnia: Code(s): G47.00 - Insomnia, unspecified Category: Medical Qualifiers: Insomnia type: unspecified Qualified Code(s): G47.00 - Insomnia, unspecified Plan: Sleep hygiene reinforced Continue Melatonin 6 mg Q HS PRN and Trazodone 50 mg Q HS PRN Plan Follow up in 4 months Orders: Orders Complete Blood Count Auto Diff 4 Months Alex Harvey MD D64.9 - Anemia, unspecified Comprehensive [place]. Panel Fast 4 Months Alex Harvey MD E78.00 - Pure hypercholesterolemia, unspecified Lipid Panel 4 Months Alex Harvey MD E78.00 - Pure hypercholesterolemia, unspecified Vitamin D 25-OH Total 4 Months Alex Harvey MD E55.9 - Vitamin D deficiency, unspecified TSH reflex Free T4 4 Months Alex Harvey MD E78.00 - Pure hypercholesterolemia, unspecified UA CC w/rflx Micro + Cult 4 Months Alex Harvey MD R30.0 - Dysuria Medications: Changed From fluticasone furoate-vilanterol 100-25 mcg/dose (Breo Ellipta) 1 ea inhalation DAILY 60 ea 5RF To fluticasone furoate-vilanterol 100-25 mcg/dose (Breo Ellipta) 1 inh inhalation DAILY Cedric Sarabia MD From tiotropium bromide 2.5 mcg/actuation (Spiriva Respimat) 2 puffs inhalation DAILY 4 grams 1RF COPD To tiotropium bromide 2.5 mcg/actuation (Spiriva Respimat) 2 inhalations inhalation DAILY Cedric Sarabia MD
--- OUTSIDE RECORDS SUMMARY | 2025-05-16 23:44 | XMS_ITS | Patient Health Record ---
[facility] Address [address] [place] [address] Care Team Providers Care Quality Assurance Supervisor Body Name Role Phone Howard Harvey MDneth Primary Care Provider Chester Simon Unavailable [phone] Allergies Allergen (clinical drug ingredient) Drug/Non Drug [...] Vaccine Route Administration Date Status Comme nts Influenza Unknown 04/15/2022 Administered COVID-19 Moderna Vaccine Unknown 04/28/2021 Administered 1st 08/02/2020 2nd 08/30/2020 Social History Tobacco Use: Social History Observation [...] Problem Status W/U Status Risk Notes Problem Bilateral atherosclerosis of arteries of lower limbs (disorder) ([id number] ) Unspecified atherosclerosis of [place] arteries of extremities, bilateral legs (I70.203) Active confirmed Problem Localized, primary osteoarthritis of the ankle and/or foot (384410969) Primary osteoarthritis, 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 confirmed Problem Localized, primary osteoarthritis of the ankle and/or foot (580903063) Primary osteoarthritis, left 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) Active confirmed Plan Of Treatment Pending Test Test Name Order Date X ray : Foot, left 3V 04/15/2022 45385-QDZOPCH NAIL, 1-07/04/2018 73650-OOMAROP NAIL, -03/28/2018 78801-Dose Destruction, -03/28/2018 34738-Qzan Destruction, -01/05/2018 35767-Rwtv Destruction, -02/07/2018 80933-Yksv Destruction, -14 07/04/2018 66699-TCXZ SKIN LESIONS, 2 TO 4 12/13/19 19 68760-JKBD SKIN LESIONS, 2 TO 4 11/03/19 23 91846-EZHX SKIN LESIONS, 2 TO 4 07/04/19 19 00064-CCQK SKIN LESIONS, 2 TO 4 01/06/20 18 86604-KVUK SKIN LESIONS, 2 TO 4 03/28/20 18 Q5984-YMHVPXRI DYSTROPHIC NAILS ANY # O2866-ZVVUEEKW DYSTROPHIC NAILS ANY # A5925-WDXPWAHQ DYSTROPHIC NAILS ANY # K1615-TZLPCFMK DYSTROPHIC NAILS ANY # 49989- Nail Unit Biopsy 01/05/2018 Insurance Providers Payer Name Payer Address Payer Phone Subscriber Number Group Number Insured Name Patient Relationship to Insured Coverage Start Date Coverage End Date Medicare National [employer] [address] [place] [address] [id number] Kvng [place] i Self - patient is the insured A[employer] Secondary to Medicare [address] [place] [address] [id number] Kvng [place] i Self - patient is the insured Medical (General) History Medical History History ICD Code Anxiety Arthritis Back,Hip,and Knee pain CAD (Cholesterol) Cancer High blood pressure Poor circulation Stroke Vascular phlebitis (clots) Measles Mumps Chicken pox Hx of Prostate cancer -24 COPD Emphysema Warts Surgical History Surgery Date(Month/Year) prostate cancer 1993 upper teeth removed 10/2019 Hospitalization History Reason Date(Month/Year) [facility] breathing issuses exams done inha lers- few hrs 06/2022
== END 2025-05-16 13:50 | disposition home or self-care (01) ==
LOC: HO.HMCH 12:30
PROVIDERS: PCP Internal Medicine; Visit Provider Internal Medicine
DX: J96.11 Chronic respiratory failure with hypoxia (principal); I82.493 Acute embolism and thrombosis of other specified deep vein of lower extremity, bilateral; F03.90 Unspecified dementia, unspecified severity, without behavioral disturbance, psychotic disturbance, mood disturbance, and anxiety; R60.0 Localized edema; I10 Essential (primary) hypertension; E78.00 Pure hypercholesterolemia, unspecified; E55.9 Vitamin D deficiency, unspecified; E21.3 Hyperparathyroidism, unspecified; E04.2 Nontoxic multinodular goiter; G47.00 Insomnia, unspecified

== ENCOUNTER → 2025-05-16 12:29 | Outpatient (BNVA) | payer MEDICARE, SELFPAY | PROVIDERS: PCP Internal Medicine; Visit Provider Internal Medicine | DX: J96.11 Chronic respiratory failure with hypoxia (principal); I82.493 Acute embolism and thrombosis of other specified deep vein of lower extremity, bilateral; R60.0 Localized edema; I10 Essential (primary) hypertension; E78.00 Pure hypercholesterolemia, unspecified; E55.9 Vitamin D deficiency, unspecified; E21.3 Hyperparathyroidism, unspecified; E04.2 Nontoxic multinodular goiter; F03.90 Unspecified dementia, unspecified severity, without behavioral disturbance, psychotic disturbance, mood disturbance, and anxiety; G47.00 Insomnia, unspecified; Z87.891 Personal history of nicotine dependence; Z79.899 Other long term (current) drug therapy | CPT/HCPCS: 96127; 99212 ==

== ENCOUNTER 2025-05-25 03:41 | Inpatient (IN) | payer MEDICARE, SELFPAY ==
[2025-05-25] VITALS (10 sets, daily range): BP systolic 129–168; BP diastolic 65–82; PULSE 58–77; RESP 16–22; TEMP 36.7–37.4; O2SAT 96–100; BMI 25.2; BMI 24.7
--- NOTE | 2025-05-25 | ECG_ITS ---
Test Reason : CP Blood Pressure : */* mmHG Vent. 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
--- NOTE | ~2025-05-25 | XR_ITS ---
CLINICAL HISTORY: dyspnea 1 view chest x-ray Comparison: CR/SR - XR CHEST 2 VIEWS - 03/12/25 08:17 EDT CR/SR - XR CHEST 2 VIEWS - 01/24/25 09:[address]/[place]/SR - CT CHEST WITH IV CONTRAST - 07/28/24 09:55 EST Findings: Lungs are hyperinflated suggesting underlying obstructive lung disease patchy density within the mid lungs bilaterally. Known areas of parenchymal scarring are present. No focal consolidation or large effusion is noted. The heart size is enlarged. Tortuosity is noted of the thoracic aorta. Osteopenia is noted with degenerative change within the shoulders and thoracic spine. IMPRESSION: Obstructive lung disease with possible perihilar pneumonitis. This document has been electronically signed by: Wilfredo Ko MD on 05/25/2025 05:54:42
--- NOTE | ~2025-05-25 | CT_ITS ---
CLINICAL HISTORY: L sided deficits - arm and leg CTA HEAD WITH CONTRAST AND 3D POST PROCESSING CTA NECK WITH CONTRAST AND 3D POST PROCESSING COMPARISON: Noncontrast CT brain 05/25/2025. FINDINGS: CTA NECK: Sagittal and coronal MIP 3D reconstruction images were performed. Exam is mildly limited due to motion/streak artifact. There is no occlusion, dissection, aneurysm, or vascular malformation. There is no active bleeding. Short segment of mild stenosis is noted in the right vertebral artery on axial image 522 of series 6, at approximately the C3 vertebral body level. There is a short segment of high-grade stenosis within the left vertebral artery, seen at the C3 vertebral body level on axial image 511. Soft and calcific plaque is noted in the right carotid bulb and proximal right internal carotid artery, without significant stenosis. Soft and calcific plaque is noted in the left carotid bulb and proximal left internal carotid artery. There is mild stenosis within the proximal left internal carotid artery. Common carotid arteries, internal carotid arteries, external carotid arteries, and vertebral arteries are otherwise unremarkable. Multilevel degenerative changes are noted within the cervical spine. Upper lungs are partially obscured by motion artifact. Emphysematous changes are noted. Dependent atelectatic change is noted within a portion of the right upper lobe. CTA HEAD: Sagittal and coronal MIP 3D reconstruction images were performed. What is favored to represent either CT artifact or a short segment of fenestration is noted within the right M1 segment on axial image 237 of series 6. Dissection is thought to be unlikely. There is no high-grade stenosis, occlusion, dissection, or vascular malformation. There is no active bleeding. There is mild calcific plaque in the carotid siphons. Terminal internal carotid arteries, middle cerebral arteries, anterior cerebral arteries, basilar artery, and posterior cerebral arteries are otherwise unremarkable. No evidence of dural venous sinus thrombosis. IMPRESSION: 1. CTA neck demonstrates no evidence of an occlusion or dissection. 2. Short segment of mild stenosis within the right vertebral artery. Short segment of high-grade stenosis in the left vertebral artery. 3. Mild stenosis in the proximal left internal carotid artery. 4. CTA head demonstrates no evidence of a large vessel occlusion. No high-grade stenosis. 5. What is favored to represent either CT artifact or a short segment of fenestration is noted within the right M1 segment. Dissection is thought to be unlikely. This can be further assessed with a follow-up exam when patient condition permits. 6. Additional findings are detailed above. This document has been electronically signed by: Gordo Pearson M.D. on 05/25/2025 05:27:25
--- NOTE | ~2025-05-25 | CT_ITS ---
CLINICAL HISTORY: L sided deficits - arm and leg CT BRAIN WITHOUT CONTRAST COMPARISON: 07/28/2024. FINDINGS: There is mild parenchymal atrophy. There is no evidence of an acute infarct or intraparenchymal hemorrhage. Patchy areas of low attenuation are noted in the subcortical and periventricular regions of the supratentorial brain which are nonspecific but most likely represent chronic small vessel ischemic disease. There is no mass effect, midline shift, or extra-axial blood. The ventricles are normal in size without evidence of hydrocephalus. The bone windows are unremarkable. Retention cysts or polyps are noted within the maxillary sinuses. IMPRESSION: 1. No acute disease in the brain. This document has been electronically signed by: Gordo Pearson M.D. on 05/25/2025 04:19:25
--- NOTE | ~2025-05-25 | NM_ITS ---
NM PULMONARY PERFUSION EXAMINATION HISTORY: 84-year-old male, history of DVT, short of breath, patient missed his dose of Eliquis. COMPARISON: No prior. Correlation made with chest radiograph performed earlier same day. TECHNIQUE: Nuclear perfusion scan was performed utilizing standard views/techniques after the IV administration of 4.0 mCi technetium 99m-MAA. FINDINGS: Examination demonstrates a right middle lobe lobar perfusion defect, and a right lower lobe segmental defect, of which the chest radiograph demonstrates correlate of subsegmental defects in these distributions. The left lung demonstrates 2 likely segmental defects in the left lower lobe, for which the chest x-ray does not demonstrate an abnormality. There are no upper lobe perfusion defects on either side. NM/NM pul perfusion IMPRESSION: Examination is intermediate probability for pulmonary embolus. Electronically signed by: Marc Cox MD 05/25/2025 05:00 PM BRIANNA PASCAL
--- NOTE | 2025-05-25 03:42 | ED.SOB ---
HPI - SOB/Dyspnea General Chief Complaint: Chest Pain Stated Complaint: sob, CP Source: patient, family, EMS and old records reviewed Mode of arrival: EMS Limitations: other ( poor historian) History of Present Illness ED Provider: THUAN BUSTILLO Narrative: 84-year-old male with past medical history of COPD, cognitive impairment, hyperparathyroidism, osteoporosis, pneumonia, pneumothorax, encephalopathy, chronic respiratory failure with hypoxia on baseline 3 L nasal cannula at home, peripheral arterial disease, CHF with preserved EF, DVT on Eliquis, here with complaint of going to bed around 730 after a long day celebrating Thanksgiving with his family. His told EMS that he was fine at that time but she has not seen him since. He told her he has been awake for 1 hour with feeling of chest pressure and his left side feels funny. He describes it initially as it being numb then states it is cold and it does not work right. I asked him if he woke up this way and he said yes he woke up and did not feel well and tried to wait but it did not get better so the notes he started yelling for her to call 911. EMS reported hypertension and gave him nitro as he complained of chest pressure. On arrival he knows he is at [facility] but he is not sure of the year and is confused. He denies any headache or trauma. He can not tell me his medications but I do see a prior note state he had a DVT and is on Eliquis. There was no infectious symptoms reported yesterday and he is very upset on arrival that his left arm feels weird. his states he had a flu shot in the left arm a few days ago he had no change in his symptoms with nitro 352am call to Paige to ask her about his left sided weakness. She states he went to bed at 730pm and he was fine at that time. His last known well was 730pm. the also tells me that he is relatively compliant with his Eliquis so this makes me question if he is frequently taking it MD elicited complaint: shortness of breath ( chest pain, left arm weakness) Pertinent past history: COPD Onset (ago): unknown ( it appears his last known well was 19:30) Context: other Timing: constant Severity: moderate Exacerbating factors: movement Relieving factors: nothing Known history of: COPD and congestive heart failure Associated symptoms: chest pain and other Treatment prior to arrival: other ( nitro) Related Data Home Medications ?Medication ?Instructions ?Recorded ?Confirmed trazodone 50 mg tablet 50 mg PO BEDTIME PRN Insomnia 08/20/23 05/16/25 memantine 5 mg tablet 10 mg PO BID 04/17/25 05/16/25 fluticasone furoate 100 1 inh inhalation DAILY 05/17/25 05/17/25 mcg-vilanterol 25 mcg/dose inhalation powder (Breo Ellipta) quetiapine 150 mg tablet 150 mg PO BEDTIME PRN agitation 05/17/25 05/17/25 quetiapine 25 mg tablet 25 mg PO DAILY 05/17/25 05/17/25 tiotropium bromide 2.5 2 inh inhalation DAILY COPD 05/17/25 05/17/25 mcg/actuation mist for inhalation (Spiriva Respimat) Previous Rx's ?Medication ?Instructions ?Recorded albuterol sulfate 90 mcg/actuation 2 puff inhalation Q6H PRN 03/30/23 aerosol inhaler (ProAir HFA) shortness of breath or wheezing 30 days #1 inhaler melatonin 3 mg tablet 6 mg (2 x 3 mg) PO BEDTIME PRN 03/30/23 Insomnia #60 tabs furosemide 20 mg tablet 20 mg PO QAM edema #30 tabs 04/29/24 cholecalciferol (vitamin D3) 50 50 mcg PO DAILY 90 days #90 caps 05/08/24 mcg (2,000 unit) capsule ipratropium 0.5 mg-albuterol 3 mg 3 ml inhalation Q4-6H PRN 11/03/24 (2.5 mg base)/3 mL nebulization shortness of breath or wheezing soln #180 mL atorvastatin 10 mg tablet 10 mg PO BEDTIME 90 days #90 tabs 12/22/24 lisinopril 20 mg tablet 20 mg PO DAILY 90 days #90 tabs 12/22/24 apixaban 5 mg tablet 5 mg PO BID 30 days #60 tabs 05/11/25 clopidogrel 75 mg tablet 75 mg PO DAILY 90 days #90 tabs 05/16/25 Allergies Allergy/AdvReac Type Severity Reaction Status Date / Time No Known Allergies Allergy Mild NONE Verified 05/25/25 03:47 cats dogs ragweed dust pollen Allergy Unknown Unknown Uncoded 05/25/25 03:47 Review of Systems Review of Systems: ROS unable to be obtained due to cognitive impairment [facility] Past Medical History Attestation statement: The following information was validated with the patient. Source: old records reviewed and obtained from family Medical History Insomnia Pure hypercholesterolemia Essential hypertension Pneumothorax after biopsy Hypoxemia COPD (chronic obstructive pulmonary disease) Pulmonary emphysema Osteopenia Hyperparathyroidism Osteoporosis Vitamin D deficiency Multinodular thyroid Surgical History Hx of prostatectomy Hx of hernia repair Family History Family History Father No problems noted. Mother No problems noted. Social History Social History Household Members: Family Household Members Other:: 2 Housing: House Do you presently have visiting nurse or other home services: Yes Alcohol intake: never Comment: sitter Patient Tobacco Use Status: Former Tobacco user Tobacco use type: Cigarette Smoked in Last 30 Days: No e-Cigarette/Vaping Use: Never Used Second Hand Smoke Exposure: Yes Use of substances other than those prescribed or required for medical reasons: No Advance Directives: Yes Advance Directives on File: Yes Advance Directives Date on File: 02/28/23 Do you have a plan to hurt others: No Plan service: No Current occupational status: retired Sexual orientation: Straight/Heterosexual Cognitive needs: Yes Hearing needs: No Vision needs: No Physical Exam Vital Signs: Vital Signs: Last Vital Signs Temp 98.3 F 05/25/25 06:00 Pulse 63 05/25/25 06:00 Resp 16 05/25/25 06:00 BP 135/65 05/25/25 06:00 Pulse Ox 100 05/25/25 06:00 O2 Del Method Nasal Cannula 05/25/25 06:00 O2 Flow Rate 3 05/25/25 06:00 Oxygen Flow Rate 3 05/25/25 03:44 BMI result Body Mass Index 25.2 Appearance: Alert. Oriented X to person and place. anxious mild acute distress. Eyes: Pupils equal, round and reactive to light. ENT: Pharynx normal. Neck: Normal inspection. Neck supple. CVS: Normal heart rate and rhythm. Pulses normal. Respiratory: No respiratory distress. Breath sounds coarse and diminished Abdomen: Soft and nontender. Skin: Skin warm and dry. Normal skin color. Normal skin turgor. Extremities: No lower extremity edema. No calf ttp Neuro: Oriented X 2. weakness of left upper and left lower extremity mild left upper extremity sensory deficit. CN2-12 intact NIH Stroke Scale Internal: Initial- Upon Arrival Level of Consciousness: Alert Level of Consciousness Questions: Answers one question correctly Level of Consciousness Commands: Performs both tasks correctly Best Gaze: Normal Visual: No visual loss Facial Palsy: Normal Motor Arm (Right): No drift Motor Arm (Left): Some effort against gravity Motor Leg (Right): No drift Motor Leg (Left): Some effort against gravity Limb Ataxia: Absent Sensory: Mild to moderate sensory loss Best Language: No aphasia Dysarthia: Normal Extinction and Inattention: No abnormality Score: 6 Course Course Course Narrative: 4:39 AM 05/25/2025 (THUAN ): Patient states he has no symptoms now in the chest 5:33 AM 05/25/2025 (THUAN BUTTERFIELD): CTA negative, I do not suspect he is having dissection 6:09 AM 05/25/2025 (THUAN DO): Signed out to Dr. Yuen pending repeat troponin if repeat troponin is not significantly rise I would admit for TIA workup there is concern that he is not always compliant with his Eliquis Reevaluation(s) Reevaluation #1: 6:51 AM 05/25/2025 (THUAN ): Dr. Lechuga's sign out the case to the day hospitalist I will put in a bed requests pending they evaluate her 730. Planned admit troponin has been flat Medications Administered Discontinued Medications Generic Name Dose Route Start Last Admin Trade Name Freq PRN Reason Stop Dose Admin Acetaminophen 1,000 mg in 100 mls @ 400 mls/hr 05/25/25 04:29 05/25/25 05:31 Ofirmev IV 05/25/25 04:43 Infused ONCE ONE Infusion Iohexol 70 ml 05/25/25 04:14 05/25/25 04:14 Iohexol 350 Mg/Ml 100 Ml Infus..Btl IV 05/25/25 04:15 70 ml ONCE ONE Administration Medical Decision Making Medical Decision Making [facility] Narrative: 84-year-old male with past medical history of COPD, cognitive impairment, hyperparathyroidism, osteoporosis, pneumonia, pneumothorax, encephalopathy, chronic respiratory failure with hypoxia on baseline 3 L nasal cannula at home, peripheral arterial disease, CHF with preserved EF here with complaint of initially EMS states it was for shortness of breath and chest pain but then on arrival he is perseverating, stating in his left side is not working. He is very hard to get a history and timeline from but what I can understand from talking to him and his family is that he went to bed around 730 and woke up feeling these symptoms. He states his pain is a pressure on the chest he states it does not radiate to the left arm but he notes his left arm feels off. When asked to raise it he is visibly trying but then can not lift it past the height of his lower ribs. He was put into the stroke protocol on arrival, he is not a candidate for TNK based off last known well was at 19:30 and he is on Eliquis. This could possibly be ACS, stroke, aortic pathology, low probability for VTE given Eliquis use. They deny any infectious symptoms suggest pneumonia. his symptoms were in both the left arm and left leg this would be atypical for reaction to flu vaccine aspirin held given Eliquis use and home aspirin use Differential Diagnosis Differential Diagnoses: The differential diagnosis associated with the presentation includes stroke, ACS, atypical chest pain, chronic lung disease, CHF Admission/Observation Consideration of admission/observation: Escalation of care including admission/observation considered 5:02 AM 05/25/2025 (THUAN ): at this time his weakness has resolved in the left arm and left leg. Unclear if this is a TIA Lab Data MDM Lab Attestation statement: I reviewed the patient's lab results. his BNP is elevated as well as slight bump in kidney function he has no leg edema and no pleural effusions or pulmonary edema on chest x-ray we will continue to monitor and hold IV Lasix at this time 05/25/25 04:34 05/25/25 04:34 Labs: Lab Results 05/25/25 05/25/25 05/25/25 Range/Units 04:13 04:14 04:34 WBC 8.2 (4.8-10.8) X10*3/uL RBC 3.67 L (4.60-5.80) X10*6/uL Hgb 11.9 L (14.0-18.0) g/dl Hct 36.2 L (42.0-52.0) % MCV 98.6 H (80.0-98.0) fL MCH 32.4 (27.0-33.0) pg MCHC 32.9 (31.0-36.0) g/dl RDW 12.3 (11.0-16.0) % Plt Count 173 (160-400) X10*3/uL MPV 10.4 (9.4-12.4) fL Immature Gran % (Auto) 0.9 H (0.0-0.4) % Neut % (Auto) 67.3 (45-73) % Lymph % (Auto) 14.9 L (20-40) % Johnson % (Auto) 10.4 (2-11) % Eos % (Auto) 5.3 H (0-4) % Baso % (Auto) 1.2 (0-2) % Lymph # (Auto) 1.2 (1.2-4.9) X10*3/uL Johnson # (Auto) 0.9 (0.1-1.2) X10*3/uL Eos # (Auto) 0.4 (0.0-0.4) X10*3/uL Baso # (Auto) 0.1 (0.0-0.2) X10*3/uL Abs Immat Gran (auto) 0.07 H (0.00-0.03) X10*3/uL Absolute Neuts (auto) 5.5 (2.0-8.3) x10*3/uL Absolute Nucleated RBC 0.000 (0.0-0.012) X10*3/uL Nucleated RBC % (auto) 0.0 (0.0-0.2) /100WBC PT 12.9 (11.2-13.5) SEC Whole Blood PT 14.7 H (11.1-13.5) sec INR 1.1 (0.9-1.1) Whole Blood INR 1.2 H (0.9-1.1) VBG pH (7.32-7.43) VBG pCO2 mmHg VBG pO2 mmHg VBG HCO3 (22-26) mmol/L VBG O2 Saturation % VBG Base Excess mmol/L Sodium 145 (135-145) mmol/L Potassium 4.4 (3.3-5.1) mmol/L Chloride 109 H (96-108) mmol/L Carbon Dioxide 30 H (22-29) mmol/L Anion Gap 10 L (12-20) BUN 36 H (9-16) mg/dL Creatinine 1.47 H (0.5-1.4) mg/dL Estim Creat Clear Calc 38.6 Estimated GFR 46 POC Glucose 82 (60-115) mg/dL Random Glucose 96 (60-115) mg/dL Calcium 8.6 (8.4-10.2) mg/dL Magnesium 2.0 (1.6-2.6) mg/dL Total Bilirubin 0.6 (0.0-1.0) mg/dL Direct Bilirubin 0.2 (0.0-0.5) mg/dL AST 25 (5-37) U/L ALT 9 (0-40) U/L Alkaline Phosphatase 107 (39-117) U/L Troponin I High Sens 41.4 H D (<3.5-35.0) ng/L NT-Pro-B Natriuret Pep 1043.1 H (<300) pg/mL Total Protein 5.9 L (6.5-8.0) g/dL Albumin 3.4 L (3.5-5.0) g/dL Influenza Type A (PCR) NEGATIVE (Negative) Influenza Type B (PCR) NEGATIVE (Negative) RSV RNA Qual (PCR) NEGATIVE (Negative) SARS-CoV-2 RNA (RT-PCR) NEGATIVE (Negative) 05/25/25 05/25/25 Range/Units 04:40 06:19 WBC (4.8-10.8) X10*3/uL RBC (4.60-5.80) X10*6/uL Hgb (14.0-18.0) g/dl Hct (42.0-52.0) % MCV (80.0-98.0) fL MCH (27.0-33.0) pg MCHC (31.0-36.0) g/dl RDW (11.0-16.0) % Plt Count (160-400) X10*3/uL MPV (9.4-12.4) fL Immature Gran % (Auto) (0.0-0.4) % Neut % (Auto) (45-73) % Lymph % (Auto) (20-40) % Johnson % (Auto) (2-11) % Eos % (Auto) (0-4) % Baso % (Auto) (0-2) % Lymph # (Auto) (1.2-4.9) X10*3/uL Johnson # (Auto) (0.1-1.2) X10*3/uL Eos # (Auto) (0.0-0.4) X10*3/uL Baso # (Auto) (0.0-0.2) X10*3/uL Abs Immat Gran (auto) (0.00-0.03) X10*3/uL Absolute Neuts (auto) (2.0-8.3) x10*3/uL Absolute Nucleated RBC (0.0-0.012) X10*3/uL Nucleated RBC % (auto) (0.0-0.2) /100WBC PT (11.2-13.5) SEC Whole Blood PT (11.1-13.5) sec INR (0.9-1.1) Whole Blood INR (0.9-1.1) VBG pH 7.36 (7.32-7.43) VBG pCO2 57 mmHg VBG pO2 36 mmHg VBG HCO3 32 H (22-26) mmol/L VBG O2 Saturation 55.0 % VBG Base Excess 6.0 mmol/L Sodium (135-145) mmol/L Potassium (3.3-5.1) mmol/L Chloride (96-108) mmol/L Carbon Dioxide (22-29) mmol/L Anion Gap (12-20) BUN (9-16) mg/dL Creatinine (0.5-1.4) mg/dL Estim Creat Clear Calc Estimated GFR POC Glucose (60-115) mg/dL Random Glucose (60-115) mg/dL Calcium (8.4-10.2) mg/dL Magnesium (1.6-2.6) mg/dL Total Bilirubin (0.0-1.0) mg/dL Direct Bilirubin (0.0-0.5) mg/dL AST (5-37) U/L ALT (0-40) U/L Alkaline Phosphatase (39-117) U/L Troponin I High Sens 41.3 H (<3.5-35.0) ng/L NT-Pro-B Natriuret Pep (<300) pg/mL Total Protein (6.5-8.0) g/dL Albumin (3.5-5.0) g/dL Influenza Type A (PCR) (Negative) Influenza Type B (PCR) (Negative) RSV RNA Qual (PCR) (Negative) SARS-CoV-2 RNA (RT-PCR) (Negative) Independent Interpretation I performed an independent interpretation of an: EKG, Plain X-Ray and CT Scan ( no intracranial hemorrhage, no LVO) Interpretation: Rate: 67 Rhythm: NSR [place]: left Normal P waves. Normal CARMELO. RBBB ST T wave : there is significant artifact but I see no ST-elevation, he does have T-wave inversions in leads V1, V2 qTC: 441 prior studies: he has history of old RBBB The study has been interpreted contemporaneously by me. . Radiology Impression Discussion of test interpretation with radiology: I have reviewed the radiologist's reading. Independent Historian Clinical information obtained from an independent historian. History obtained from or confirmed by: EMS External Record Review External record reviewed: Inpatient record and Outpatient record Discharge Plan Discharge Clinical Impression: Acute left-sided muscle weakness, Atypical chest pain, Brain TIA Patient Disposition: Admitted As Inpatient Print Language: Uruguayan
[2025-05-25] MEDS: iohexoL 350 MG/ML 100 ML INFUS..BTL 70 ML IV (04:14)
[2025-05-25 04:17] LABS: Prothrombin Time Whole Bld POC 14.7 sec (11.1-13.5); ~PT, ~INR - Anti Coag Clinic 1.2 (0.9-1.1)
[2025-05-25 04:17] LABS: Glucose, Whole Blood 82 mg/dL (60-115)
--- OUTSIDE RECORDS SUMMARY | 2025-05-25 04:37 | XMS_ITS | Clinical Summary ---
Author Organization [facility] Address [address] [place] [phone] Phone Care Team Providers Care Child Care Development Specialist Name Role Phone Cedric Sarabia MD Unavailable [phone] Unknown, Unknown Primary Care Provider Manuel mays [...] pleural effusion. They will get this at [facility] and were advised today. He also has pulm f/u in the next few weeks. Will ask nsg to call and inquire what date is Pleural effusion 09/01/2023 Assessment & Plan (09/01/2023 9:41 AM EST): This was after a thoracentesis found on imaging during his admit to [facility] for RLL covid pna-/ It was re checked and resolved as of 08/30/23 CXR. Pressure injury of skin of trochanteric region o f right hip 09/01/2023 Assessment & Plan (09/01/2023 9:36 AM EST): He has a sore on his right hip. There is a [id number] on it. Pt refused to allow me [...] Maintenance Insurance MEDICARE PART A & B [facility] MEDICARE SUPPLEMENT Member Subscriber Plan / Payer (Ef fective 2016-Present) Name:Kvng Leyva Relation to Subscriber:Self Name:Kvng Leyva Payer ID:[id number] (NAIC) Group ID:Not on file Type:HMO Address: [facility] [employer] [address] [place] [phone] MEDICARE PART A & B [facility] MEDICARE SUPPLEMENT Member Subscriber Plan / Payer (Ef fective 2016-Present) Name:Kvng Leyva Relation to Subscriber:Self Name:Kvng Leyva Payer ID:[id number] (NAIC) Group ID:Not on file Type:O Address: [facility] [employer] [address] [place] [phone] MEDICARE PART A & B [facility] MEDICARE SUPPLEMENT Member Subscriber Plan / Payer (Ef fective 2016-Present) Name:Kvng Leyva Relation to Subscriber:Self Name:Kvng Leyva Payer ID:[id number] (NAIC) Group ID:Not on file Type:HMO Address: [facility] [employer] [address] [place] [phone] MEDICARE PART A & B [facility] MEDICARE SUPPLEMENT Member Subscriber Plan / Payer (Ef fective 2016-Present) Name:PennyariannaKvng Relation to Subscriber:Self Name:Pennyarianna Kvng Payer ID:[id number] (NAIC) Group ID:Not on file Type:HMO Address: [facility] [address] [place] [phone] MEDICARE PART [address] [place] [address] [place] [address] MEDICARE SUPPLEMENT Member Subscriber Plan / Payer (Ef fective 2016-Present) Name:Kvng Leyva Relation to Subscriber:Self Name:Kvng Leyva Payer ID:[id number] (NAIC) Group ID:Not on file Type:O Address: [facility] [employer] [address] [place] [phone] MEDICARE PART A & B MEDICARE SUPPLEMENT Member Subscriber Plan / Payer (Ef fective 2016-Present) Name:DominickKvng yadav Relation to Subscriber:Self Name:DominickwaltKvng keller Payer ID:[id number] (NAIC) Group ID:Not on file Type:O Address: [facility] [address] [place] [phone] MEDICARE PART A & B [facility] MEDICARE SUPPLEMENT Member Subscriber Plan / Payer (Ef fective 2016-Present) Name:Kvng Leyva Relation to Subscriber:Self Name:Kvng Leyva Payer ID:[id number] (NAIC) Group ID:Not on file Type:[employer] Address: [facility] [address] [place] [phone] MEDICARE PART A & B [facility] MEDICARE SUPPLEMENT Member Subscriber Plan / Payer (Ef fective 2016-Present) Name:Kvng Leyva Relation to Subscriber:Self Name:Kvng Leyva Payer ID:[id number] (NAIC) Group ID:Not on file Type:[employer] Address: [facility] [address] [place] [address] MEDICARE PART A & B [facility] MEDICARE SUPPLEMENT Member Subscriber Plan / Payer (Ef fective 2016-Present) Name:Kvng Leyva Relation to Subscriber:Self Name:Kvng Leyva Payer ID:[id number] (NAIC) Group ID:Not on file Type:HMO Address: [facility] [employer] [address] [place] [address] Advance Directives For more information, please contact: [phone] (9AM - 5PM 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 It is not the complete legal health record.[facility]
--- OUTSIDE RECORDS SUMMARY | 2025-05-25 04:37 | XMS_ITS | Encounter Summary ---
Author Organization [facility] Address [address] [place] [address] Phone Care Team Providers Care Merchant Miller Name Role Phone Cedric Sarabia MD Unavailable [phone] Unknown, Unknown Primary Care Provider Manuel mays Encounter Details Date Type Department Care Team (Late Contact Info) Description 10/05/2023 Telephone [facility] Internal Medicine [address] [place] [address] Unknown, Unknown, MD Social History Tobacco Use [...] documented as of this encounter Care Teams Merchant Miller Relationship Specialty Start Date End Date Unknown, Unknown, MD PCP - General 09/08/23 Cedric Sarabia MD [address] [place] [address] [place] [address] Pulmonary Disease 09/18/22 documented as of this encounter Additional Source Comments The information contained in this document represents components of the legal health record. It is not the complete legal health record.[facility]
[2025-05-25 04:41] LABS: MANUAL DIFF FLAG NO
[2025-05-25 04:43] LABS: Hematocrit 36.2 % (42.0-52.0); Hemoglobin 11.9 g/dl (14.0-18.0); Imm Gran Abs Auto 0.07 X10*3/uL (0.00-0.03); Imm Gran Pct Auto 0.9 % (0.0-0.4); Lymphocytes Absolute Auto 1.2 X10*3/uL (1.2-4.9); Mean Corpuscular HGB Conc 32.9 g/dl (31.0-36.0); Mean Corpuscular Hemoglobin 32.4 pg (27.0-33.0); Mean Corpuscular Volume 98.6 fL (80.0-98.0); NRBC Abs Auto 0.000 X10*3/uL (0.0-0.012); NRBC Pct Auto 0.0 /100WBC (0.0-0.2); Platelet Count 173 X10*3/uL (160-400); Red Blood Count 3.67 X10*6/uL (4.60-5.80); White Blood Count 8.2 X10*3/uL (4.8-10.8)
[2025-05-25 04:43] LABS: Venous Blood Gas Refer to POC result
[2025-05-25 04:48] LABS: INTERNATIONAL NORM RATIO 1.1 (0.9-1.1); Prothrombin Time 12.9 SEC (11.2-13.5)
[2025-05-25 04:56] LABS: Alanine Aminotransferase 9 U/L (0-40); Albumin Level 3.4 g/dL (3.5-5.0); Alkaline Phosphatase 107 U/L (39-117); Anion Gap 10 (12-20); Aspartate Amino Transferase 25 U/L (5-37); Blood Urea Nitrogen 36 mg/dL (9-16); Calcium 8.6 mg/dL (8.4-10.2); Carbon Dioxide 30 mmol/L (22-29); Chloride 109 mmol/L (96-108); Creatinine Clr Calc Pharmacy 38.6; Estimated Glomerular Filt Rate 46; Magnesium 2.0 mg/dL (1.6-2.6); Potassium 4.4 mmol/L (3.3-5.1); Sodium 145 mmol/L (135-145); Total Protein 5.9 g/dL (6.5-8.0)
[2025-05-25 05:03] LABS: NT Pro B Type Natriuretic Pept 1043.1 pg/mL (<300); Troponin-I High Sensitivity 41.4 ng/L (<3.5-35.0)
[2025-05-25 05:03] LABS: VBG HCO3 32 mmol/L (22-26); VBG O2 % Saturation 55.0 %
[2025-05-25 05:16] LABS: Resp Syncy Virus RNA Qual PCR NEGATIVE (Negative); SARS COV2 PCR INHOUSE NEGATIVE (Negative)
[2025-05-25 06:48] LABS: Troponin-I High Sensitivity 41.3 ng/L (<3.5-35.0)
--- NOTE | 2025-05-25 07:25 | PM.IMHP ---
History of Present Illness Date of Service: 05/25/25 Attending physician on admission: Natividad Frausto Chief Complaint: ?tia As per the family patient has underlying dementia, poor historian unable to provide much history. History taken from the ED chart as well as family information. 83 y/o M with a PMH significant for COPD on baseline 3L of home O2, hyperparathyroidism, osteoporosis, pneumonia, pneumothorax, encephalopathy, chronic respiratory failure with hypoxia on baseline 3 L nasal cannula at home, peripheral arterial disease, CHF with preserved EF, DVT on Eliquis,unspecified dementia: Patient was going to bed after long day of celebrating Thanksgiving with family, EMS was called by that patient was fine earlier, he told her he has been awake for 1 hour and feeling is left arm funny(?numbness)and question of chest pressure versus short of breath. When asked the patient says he is not sure why he is here, as per the family he has baseline dementia and has behaviors fluctuations. Currently denies any new symptoms-any chest pain or shortness of breath or weakness numbness As per the family patient does not seem to be compliant with his Eliquis(misses evening dosing intermittent) labs imaging ekg reviewed: h/h :11.9/36.2 cr flactuating 1.2 to 1.4 ekg unchanged troponins flat in range 40's bnp 1043 Cta head: 1. CTA neck demonstrates no evidence of an occlusion or dissection. 2. Short segment of mild stenosis within the right vertebral artery. Short segment of high-grade stenosis in the left vertebral artery. 3. Mild stenosis in the proximal left internal carotid artery. 4. CTA head demonstrates no evidence of a large vessel occlusion. No high-grade stenosis. 5. What is favored to represent either CT artifact or a short segment of fenestration is noted within the right M1 segment. Dissection is thought to be unlikely. This can be further assessed with a follow-up exam when patient condition permits. 6. Additional findings are detailed above. cxr:Obstructive lung disease with possible perihilar pneumonitis. added v/q scan. Review of Systems Review of Systems: as above. Yes all other systems are reviewed and are negative [facility] Medical History Insomnia Pure hypercholesterolemia Essential hypertension Pneumothorax after biopsy Hypoxemia COPD (chronic obstructive pulmonary disease) Pulmonary emphysema Osteopenia Hyperparathyroidism Osteoporosis Vitamin D deficiency Multinodular thyroid Family History Father No problems noted. Mother No problems noted. Surgical History Hx of prostatectomy Hx of hernia repair Social History Household Members: Family Household Members Other:: 2 Housing: House Do you presently have visiting nurse or other home services: Yes Alcohol intake: never Comment: 1:1 sitter Patient Tobacco Use Status: Former Tobacco user Tobacco use type: Cigarette Smoked in Last 30 Days: No e-Cigarette/Vaping Use: Never Used Second Hand Smoke Exposure: Yes Use of substances other than those prescribed or required for medical reasons: No Advance Directives: Yes Advance Directives on File: Yes Advance Directives Date on File: 02/28/23 Do you have a plan to hurt others: No Plan service: No Current occupational status: retired Sexual orientation: Straight/Heterosexual Cognitive needs: Yes Hearing needs: No Vision needs: No Meds Allergies Allergy/AdvReac Type Severity Reaction Status Date / Time No Known Allergies Allergy Mild NONE Verified 05/25/25 03:47 cats dogs ragweed dust pollen Allergy Unknown Unknown Uncoded 05/25/25 03:47 Home Medications ?Medication ?Instructions ?Recorded ?Confirmed ?Last Taken ?Type fluticasone furoate 100 1 inh inhalation DAILY 05/17/25 05/25/25 05/24/25 History mcg-vilanterol 25 mcg/dose inhalation powder (Breo Ellipta) quetiapine 150 mg tablet 150 mg PO BEDTIME PRN agitation 05/17/25 05/25/25 05/24/25 History quetiapine 25 mg tablet 25 mg PO DAILY 05/17/25 05/25/25 05/24/25 History tiotropium bromide 2.5 2 inh inhalation DAILY COPD 05/17/25 05/25/25 05/24/25 History mcg/actuation mist for inhalation (Spiriva Respimat) memantine 10 mg tablet 10 mg PO BID 05/25/25 05/25/25 05/24/25 History Physical Exam Vital Signs and Narrative: Vital Signs: Last Vital Signs Temp 98.3 F 05/25/25 06:00 Pulse 63 05/25/25 06:00 Resp 16 05/25/25 06:00 BP 135/65 05/25/25 06:00 Pulse Ox 100 05/25/25 06:00 O2 Del Method Nasal Cannula 05/25/25 06:00 O2 Flow Rate 3 05/25/25 06:00 Oxygen Flow Rate 3 05/25/25 03:44 BMI result Body Mass Index 25.2 Appearance: awake ,somewhat agitated cvs: rrr, [id number] . res: air entry fair ,few wheezes scattered abd: no rebound or guarding ,nt, bs present. ext pulses present , no cyanosis . neuro: moves alll ext ,limited exam due to patient noncooperative . Results Labs 05/25/25 04:34 05/25/25 04:34 Labs: Laboratory Results - last 24 hr 05/25/25 05/25/25 05/25/25 04:13 04:14 04:34 MCV 98.6 H MCH 32.4 MCHC 32.9 RDW 12.3 Plt Count 173 MPV 10.4 Immature Gran % (Auto) 0.9 H Neut % (Auto) 67.3 Lymph % (Auto) 14.9 L [place] % (Auto) 10.4 Eos % (Auto) 5.3 H Baso % (Auto) 1.2 Lymph # (Auto) 1.2 [place] # (Auto) 0.9 Eos # (Auto) 0.4 Baso # (Auto) 0.1 Abs Immat Gran (auto) 0.07 H Absolute Neuts (auto) 5.5 Absolute Nucleated RBC 0.000 Nucleated RBC % (auto) 0.0 PT 12.9 Whole Blood PT 14.7 H INR 1.1 Whole Blood INR 1.2 H VBG pH VBG pCO2 VBG pO2 VBG HCO3 VBG O2 Saturation VBG Base Excess Anion Gap 10 L Estim Creat Clear Calc 38.6 Estimated GFR 46 POC Glucose 82 Random Glucose 96 Calcium 8.6 Magnesium 2.0 Total Bilirubin 0.6 Direct Bilirubin 0.2 AST 25 ALT 9 Alkaline Phosphatase 107 Troponin I High Sens 41.4 H D NT-Pro-B Natriuret Pep 1043.1 H Total Protein 5.9 L Albumin 3.4 L Influenza Type A (PCR) NEGATIVE Influenza Type B (PCR) NEGATIVE RSV RNA Qual (PCR) NEGATIVE SARS-CoV-2 RNA (RT-PCR) NEGATIVE 05/25/25 05/25/25 04:40 06:19 MCV MCH MCHC RDW Plt Count MPV Immature Gran % (Auto) Neut % (Auto) Lymph % (Auto) [place] % (Auto) Eos % (Auto) Baso % (Auto) Lymph # (Auto) [place] # (Auto) Eos # (Auto) Baso # (Auto) Abs Immat Gran (auto) Absolute Neuts (auto) Absolute Nucleated RBC Nucleated RBC % (auto) PT Whole Blood PT INR Whole Blood INR VBG pH 7.36 VBG pCO2 57 VBG pO2 36 VBG HCO3 32 H VBG O2 Saturation 55.0 VBG Base Excess 6.0 Anion Gap Estim Creat Clear Calc Estimated GFR POC Glucose Random Glucose Calcium Magnesium Total Bilirubin Direct Bilirubin AST ALT Alkaline Phosphatase Troponin I High Sens 41.3 H NT-Pro-B Natriuret Pep Total Protein Albumin Influenza Type A (PCR) Influenza Type B (PCR) RSV RNA Qual (PCR) SARS-CoV-2 RNA (RT-PCR) Assessment and Plan (1) Pneumonia: Status: Acute Plan 83 y/o M with a PMH significant for COPD on baseline 3L of home O2, hyperparathyroidism, osteoporosis, pneumonia, pneumothorax, encephalopathy, chronic respiratory failure with hypoxia on baseline 3 L nasal cannula at home, peripheral arterial disease, CHF with preserved EF, DVT on Eliquis,unspecified dementia: Patient was going to bed after long day of celebrating Thanksgiving with family, EMS was called by that patient was fine earlier, he told her he has been awake for 1 hour and feeling is left arm funny(?numbness)and question of chest pressure versus short of breath. When asked the patient says he is not sure why he is here, as per the family he has baseline dementia and has behaviors fluctuations. Currently denies any new symptoms-any chest pain or shortness of breath or weakness numbness numbness left upper ext-? tia per ed: Cta head: 1. CTA neck demonstrates no evidence of an occlusion or dissection. 2. Short segment of mild stenosis within the right vertebral artery. Short segment of high-grade stenosis in the left vertebral artery. 3. Mild stenosis in the proximal left internal carotid artery. 4. CTA head demonstrates no evidence of a large vessel occlusion. No high-grade stenosis. 5. What is favored to represent either CT artifact or a short segment of fenestration is noted within the right M1 segment. Dissection is thought to be unlikely. This can be further assessed with a follow-up exam when patient condition permits. 6. Additional findings are detailed above. plan: symptoms seems improved neuro checks neurology eval. possible pneumonia : added iv antibiotics moniter repiratory status closely History of DVT,now possible new pulmonary emboli: Noncompliant with Eliquis elevated trop and bnp -Etiology unclear-likely in setting of pneumonia /ckd. We will get V/Q study-Examination is intermediate probability for pulmonary embolus. Switch Eliquis to iv heparin until official results of v/q come back. Anxiety vs agitation: as per similar episodes in home also intermittent continue current home regimen ,may need sitter if remain agitated hx HFpEF: elevated trop and bnp -Etiology unclear-likely in setting of pneumonia /ckd. not looking in excerebation -seems euvolemic echocardiogram 08/21: Technically limited study despite use of contrast agent 2. Normal LV ejection fraction 55-60% with impaired relaxation filling pattern 3. Limited visualization of cardiac valve with normal cardiac valvular Dopplers 4. Mildly elevated right ventricular systolic pressure plan : not looking in excerebation i/o moniter daily weights repeat echo avoid ivf. ckd 3b: moniter renal function closely Chronic respiratory failure secondary to COPD on 3 L oxygen at home Not in acute exacerbation Continue home inhalers,duonebs . CAD/HLD Continue statin, Plavix HTN hold lisinopril due to elevated renal function Unspecified dementia/mood disorder Continue memantine, quetiapine DNR/DNI, confirmed with pt and pt's and his son. Above management discussed with the patient's family in detail length(patient's and son)-they both understand and in agreement with the above plan, time spent 70 minutes, patient is DNR DNI. Quality Stroke Does the patient have a stroke diagnosis?: No VTE Prior VTE?: Yes VTE Risk Level:: Medical - moderate - high VTE Device Contraindication: N/A - Device Ordered VTE Drug Contraindication: N/A - Med Ordered
[2025-05-25] MEDS: 0.9 % Sodium Chloride Flush 3 ML SYRINGE IVFLUSH ×2 (09:40→18:04)
--- NOTE | 2025-05-25 13:29 | PHA.MEDREC ---
Addendum entered by Chris Reyes, Lyn 05/25/25 15:11: MED REC CHECKED BY [facility] Addendum entered by Harpreet Mata 05/25/25 15:04: Spoke with pt family at bedside and they a list printed from an old 2022 DC from our facility they utilized to confirm some meds, the family seemed to update that med list when they can but some stuff was still outdated; utilized pharmacy claims and what I could from that dc packet from 2022. Original Note: Pharmacy Consult ? Medication Reconciliation Pharmacy has completed the medication reconciliation. Pt poor historian at this time, spoke with pt son and he was in the parking lot of ED at time of call, pt son is poor historian with meds and states they have a list at home they forgot to bring but he may be able to leave and come back tonight; utilized claims to confirm pt med rec for now until family can bring in med list.
[2025-05-25 17:47] LABS: PTT Heparin Drip 27.7 SEC (53-77.9)
[2025-05-25] MEDS: Heparin Sodium,Porcine/1/2NS 25,000 UNIT/250 ML IV.SOLN 10.92 UNIT IVCONT (18:05)
[2025-05-26] VITALS (8 sets, daily range): BP systolic 114–145; BP diastolic 55–78; PULSE 80–94; RESP 16–20; TEMP 36.6–37.2; O2SAT 91–97
[2025-05-26] MEDS: Lidocaine HCl 2 % Urojet 10 ML JEL.PF.APP TOPICAL (00:28)
[2025-05-26 00:46] LABS: PTT Heparin Drip 66.0 SEC (53-77.9)
--- NOTE | 2025-05-26 04:18 | PC.NURSE ---
DELAYED ENTRY: 0015: At approximately 0000, this RN jozef scanned patient for 455cc. Patient unable to void despite multiple attempts, attempted to stand patient on side of bed, patient unable to tolerate standing up. Provider notified. Straight cath orders place. Attempted x 2, met resistance both times, unable to drain bladder. Provider notified again. Explained that patient was not able to tolerate standing up due to significant work of breathing, patient also on heparin gtt, and continuous attempts of straight cath may result in trauma. IUC placed, after injecting uro-jet. 16 coude IUC drained 600cc marla urine. Patient tolerated well, however is forgetful of intervention and does not recall having elizabeth placed.
[2025-05-26 07:20] LABS: PTT Heparin Drip 69.3 SEC (53-77.9)
--- NOTE | 2025-05-26 08:00 | P.PNIM_ITS ---
Subjective Subjective Date of Service: 05/26/25 Interval History: pulm emboli Review of Systems seems somewhat improving -sob ,also more calm denies chest pain encouarged to eat Review of Systems: Yes all other systems are reviewed and are negative Physical Exam 2 Exam: Exam: Appearance: awake ,more calm cvs: rrr, [id number] . res: air entry fair, very few wheezing abd: no rebound or guarding ,nt, bs present. ext pulses present , no cyanosis . neuro: moves alll ext . Vital Signs: Vital Signs: Last Vital Signs Temp 97.8 F 05/26/25 07:35 Pulse 90 05/26/25 07:35 Resp 20 05/26/25 07:35 BP 145/78 H 05/26/25 07:35 Pulse Ox 97 05/26/25 07:35 O2 Del Method Nasal Cannula 05/26/25 07:35 O2 Flow Rate 3 05/26/25 07:35 Oxygen Flow Rate 3 05/25/25 03:44 BMI result Body Mass Index 24.7 Objective Data Active Medications Acetaminophen (Acetaminophen 325 Mg Tablet) 650 mg PO Q6H PRN PRN Reason: Pain, Mild 1-3,fever,headache Albuterol/Ipratropium (Albuterol/Iprat 2.5/0.5mg 3 Ml Ampul.Neb) 3 ml INHALE RQ4H WHILE AWAKE [facility] Last Admin: 05/25/25 19:49 Dose: Not Given Documented By: MILI Non-Admin Reason: Patient Refused Atorvastatin Calcium (Atorvastatin Calcium 10 Mg Tablet) 10 mg PO BEDTIME [facility] Last Admin: 05/25/25 21:20 Dose: 10 mg Documented By: AUSTIN Calcium Carbonate (Calcium Carbonate 750 Mg Tab.Chew) 750 mg PO Q4H PRN PRN Reason: Heartburn Clopidogrel Bisulfate (Clopidogrel Bisulfate 75 Mg Tablet) 75 mg PO DAILY [facility] Last Admin: 05/25/25 18:04 Dose: 75 mg Documented By: MICHAEL Famotidine (Famotidine 20 Mg Tablet) 20 mg PO DAILY [facility] Last Admin: 05/25/25 18:04 Dose: 20 mg Documented By: MICHAEL Fluticasone/Vilanterol (Fluticasone/Vilanterol 100/25 Blst.W.Dev) 1 puff INHALE RDAILY [facility] Heparin Sodium (Porcine) (Heparin Sodium,Porcine 5,000 Unit/Ml Vial) 3,100 unit 40 unit/kg (3100 unit) IVPUSH PROTOCOL BOLUS PRN; Protocol PRN Reason: 40 unit/kg - Heparin Protocol Heparin Sodium (Porcine) (Heparin Sodium,Porcine 5,000 Unit/Ml Vial) 6,200 unit 80 unit/kg (6200 unit) IVPUSH PROTOCOL BOLUS PRN; Protocol PRN Reason: 80 unit/kg - Heparin Protocol Doxycycline Hyclate 100 mg/ (Sodium Chloride) 250 mls @ 166.67 mls/hr IV Q12H [facility] Last Infusion: 05/26/25 01:29 Dose: Infused Documented By: AUSTIN Ceftriaxone Sodium 1 gm/ (Sodium Chloride) 50 mls @ 100 mls/hr IV Q24H [facility] Last Infusion: 05/25/25 12:44 Dose: Infused Documented By: COLIN Heparin Sodium/Sodium Chloride (Heparin Sodium,Porcine/1/2ns) 25,000 unit in 250 mls @ 0 mls/hr IVCONT .Q0M [facility]; Protocol Last Titration: 05/26/25 07:34 Dose: 14 units/kg/hr, 10.92 mls/hr Documented By: AUSTIN Co-signed By: ANTONIETTA Magnesium Hydroxide (Milk Of Magnesia 30 Ml Oral.Susp) 30 ml PO DAILY PRN PRN Reason: Constipation Melatonin (Melatonin 3 Mg Tablet) 6 mg PO BEDTIME PRN PRN Reason: Insomnia Memantine (Memantine Hcl 10 Mg Tablet) 10 mg PO BID [facility] Last Admin: 05/25/25 21:19 Dose: 10 mg Documented By: AUSTIN Quetiapine Fumarate (Quetiapine Fumarate 25 Mg Tablet) 25 mg PO DAILY [facility] Quetiapine Fumarate (Quetiapine Fumarate 50 Mg Tablet) 150 mg PO BEDTIME PRN PRN Reason: agitation Last Admin: 05/26/25 01:55 Dose: 150 mg Documented By: AUSTIN Sodium Chloride (0.9 % Sodium Chloride Flush 3 Ml Syringe) 3 ml IVFLUSH QSHIFT [facility] Last Admin: 05/25/25 21:21 Dose: Not Given Documented By: AUSTIN Non-Admin Reason: IV Running Tamsulosin HCl (Tamsulosin Hcl 0.4 Mg Capsule) 0.4 mg PO BEDTIME [facility] Last Admin: 05/25/25 21:19 Dose: 0.4 mg Documented By: AUSTIN Tiotropium [place] (Tiotropium [place] 2.5 Mcg 1 Puff/2.5 Mcg Mist.Inhal) 2 puff INHALE RDAILY [facility] Labs 05/26/25 06:28 05/26/25 06:28 Labs: Laboratory Results - last 24 hr 05/25/25 05/26/25 05/26/25 17:16 00:26 06:28 Hold Purple Top SEE NOTE aPTT Heparin Protocol 27.7 L 66.0 D 05/26/25 Unknown Hold Purple Top aPTT Heparin Protocol 69.3 Assessment and Plan (1) Hypoxemia: Status: Acute Plan 83 y/o M with a PMH significant for COPD on baseline 3L of home O2, h yperparathyroidism, osteoporosis, pneumonia, pneumothorax, encephalopathy, chronic respiratory failure with hypoxia on baseline 3 L nasal cannula at home, peripheral arterial disease, CHF with preserved EF, DVT on Eliquis,unspecified dementia: Patient was going to bed after long day of celebrating Thanksgiving with family, EMS was called by that patient was fine earlier, he told her he has been awake for 1 hour and feeling is left arm funny(?numbness)and question of chest pressure versus short of breath. When asked the patient says he is not sure why he is here, as per the family he has baseline dementia and has behaviors fluctuations. Currently denies any new symptoms-any chest pain or shortness of breath or weakness numbness numbness left upper ext-? tia per ed: Cta head: 1. CTA neck demonstrates no evidence of an occlusion or dissection. 2. Short segment of mild stenosis within the right vertebral artery. Short segment of high-grade stenosis in the left vertebral artery. 3. Mild stenosis in the proximal left internal carotid artery. 4. CTA head demonstrates no evidence of a large vessel occlusion. No high-grade stenosis. 5. What is favored to represent either CT artifact or a short segment of fenestration is noted within the right M1 segment. Dissection is thought to be unlikely. This can be further assessed with a follow-up exam when patient condition permits. 6. Additional findings are detailed above. plan: symptoms seems improved neuro checks neurology eval. elevated trop and bnp, ekg unchanged ,denies chest pain -Etiology unclear-likely in setting of pneumonia /ckd, as well as possible pulm emboli: continue iv heparin echo added . possible pneumonia : added iv antibiotics moniter repiratory status closely History of DVT,now possible new pulmonary emboli: Noncompliant with Eliquis We will get V/Q study-Examination is intermediate probability for pulmonary embolus. Switch Eliquis to iv heparin until official results of v/q come back. Anxiety vs agitation: as per similar episodes in home also intermittent continue current home regimen ,may need sitter if remain agitated hx HFpEF: elevated trop and bnp -Etiology unclear-likely in setting of pneumonia /ckd. not looking in excerebation -seems euvolemic echocardiogram 08/21: Technically limited study despite use of contrast agent 2. Normal LV ejection fraction 55-60% with impaired relaxation filling pattern 3. Limited visualization of cardiac valve with normal cardiac valvular Dopplers 4. Mildly elevated right ventricular systolic pressure plan : not looking in excerebation i/o moniter daily weights repeat echo avoid ivf. 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 CAD/HLD Continue statin, Plavix HTN hold lisinopril due to elevated renal function Unspecified dementia/mood disorder Continue memantine, quetiapine ongoing need for stay: possible pulm emboli-on iv heparin ,dao on ckd 3 ,pneumonia -on iv antibiotics ,in addition pending neurology and pt eval, as well as elevated trop/bnp -cardiac workup(echo pending) his son is aware. Quality Stroke Does the patient have a stroke diagnosis?: No VTE Prior VTE?: Yes VTE Risk Level:: Medical - moderate - high VTE Device Contraindication: N/A - Device Ordered VTE Drug Contraindication: N/A - Med Ordered
[2025-05-26 09:04] LABS: Hematocrit 38.3 % (42.0-52.0); Hemoglobin 12.4 g/dl (14.0-18.0); Mean Corpuscular HGB Conc 32.4 g/dl (31.0-36.0); Mean Corpuscular Hemoglobin 32.0 pg (27.0-33.0); Mean Corpuscular Volume 98.7 fL (80.0-98.0); NRBC Abs Auto 0.000 X10*3/uL (0.0-0.012); NRBC Pct Auto 0.0 /100WBC (0.0-0.2); Platelet Count 180 X10*3/uL (160-400); Red Blood Count 3.88 X10*6/uL (4.60-5.80); White Blood Count 9.9 X10*3/uL (4.8-10.8)
--- NOTE | 2025-05-26 09:06 | MHC.CM.PN ---
Addendum entered by Lashawn Campbell 05/26/25 13:43: Per UR CM Nurse, Patient has changed from OBSERVATION to INPATIENT. IMM addressed . Addendum entered by Lashawn Campbell 05/26/25 09:11: Patient uses home O2. Original Note: JABIER addressed with Patient. PT is recommending STR VS home with services; CM has initiated and will follow for dc planning. PCP is Dr. Salina Harvey. Patient lives with his and his Son/Kvng Greco is the HCP. Transport will be determined by final dc plan.
[2025-05-26 09:17] LABS: Anion Gap 14 (12-20); Blood Urea Nitrogen 33 mg/dL (9-16); Calcium 9.0 mg/dL (8.4-10.2); Carbon Dioxide 24 mmol/L (22-29); Chloride 109 mmol/L (96-108); Creatinine Clr Calc Pharmacy 46.9; Estimated Glomerular Filt Rate 57; Potassium 4.0 mmol/L (3.3-5.1); Sodium 143 mmol/L (135-145)
--- NOTE | 2025-05-26 09:21 | P.CNHO_ITS ---
Subjective - Subjective Chief complaint: Consult for : P.E. Consult date: 05/26/25 Requesting Physician: LONA. Primary Care Provider: Alex Harvey MD Family Provider: Wes. Medical Summary: DIAGNOSIS: P.E. Culinary Intern Utilized?: No - Swedish Speaking HPI - Consult Narrative Reason for consult: Consult for: P. E. Narrative: Kvng Leyva Sr is a 84 year old gentleman, with underlying dementia, was brought in at the request of , when he complained of chest pressure, shortness of breath and left arm numbness. Vq scan: Intermediate probability of P.E. He has been started on IV Heparin. Review of Systems - Constitutional Reports no additional constitutional complaints - Eyes Reports no additional eye complaints - ENT Reports no additional ear, nose, mouth, and throat complaints - Cardiovascular Reports no additional cardiovascular complaints - Respiratory Reports no additional respiratory complaints - Gastrointestinal Reports no additional gastrointestinal complaints - Genitourinary Genitourinary: Reports no additional male genitourinary complaints - Musculoskeletal Reports no additional musculoskeletal complaints - Integumentary/Breasts Skin/Breast: Reports no additional skin complaints - Neurologic Reports no additional neurologic complaints - Psychiatric Reports no additional psychiatric complaints - Endocrine Reports no additional endocrine complaints - Hematologic/Lymphatic Reports no additional hematologic/lymphatic complaints - Allergic/Immunologic Reports no additional allergic/immunologic complaints Oncology Screenings - ECOG Performance Status ECOG Performance Status: 2 [facility] Medical History: Medical History (Last Reviewed 05/25/25 @ 15:52 by Natividad Frausto MD) COPD (chronic obstructive pulmonary disease) Essential hypertension Hyperparathyroidism Hypoxemia Insomnia Multinodular thyroid Osteopenia Osteoporosis Pneumothorax after biopsy Pulmonary emphysema Pure hypercholesterolemia Vitamin D deficiency Functional capacity: wheelchair bound Patient : No Family History: Family History (Last Reviewed 05/25/25 @ 15:52 by Natividad Frausto MD) Father No problems noted. Mother No problems noted. Surgical History: Surgical History (Last Reviewed 05/25/25 @ 15:52 by Natividad Frausto MD) Hx of hernia repair Hx of prostatectomy Social History: Social History (Last Reviewed 05/25/25 @ 15:52 by Natividad Frausto MD) Living Situation History: Household Members: Family Household Members Other:: 2 Housing: House Do you presently have visiting nurse or other home services: Yes Alcohol History Details: 1. How often do you have a drink containing alcohol?: a. Never Tobacco History: Patient Tobacco Use Status: Former Tobacco user Tobacco use type: Cigarette Smoked in Last 30 Days: No e-Cigarette/Vaping Use: Never Used Second Hand Smoke Exposure: Yes Substance Use History: Use of substances other than those prescribed or required for medical reasons : No Advance Directives: Advance Directives: Yes Advance Directives on File: Yes Advance Directives Date on File: 02/28/23 Homicidal Assessment: Do you have a plan to hurt others: No Plan Occupation Assessmet: service: No Current occupational status: retired Sex/Gender Assessment: Sexual orientation: Straight/Heterosexual Home Medications and Allergies Current Medications: Current Medications Acetaminophen (Acetaminophen 325 Mg Tablet) 650 mg PO Q6H PRN PRN Reason: Pain, Mild 1-3,fever,headache Albuterol/Ipratropium (Albuterol/Iprat 2.5/0.5mg 3 Ml Ampul.Neb) 3 ml INHALE RQ4H WHILE AWAKE [facility] Last Admin: 05/26/25 08:06 Dose: Not Given Atorvastatin Calcium (Atorvastatin Calcium 10 Mg Tablet) 10 mg PO BEDTIME [facility] Last Admin: 05/25/25 21:20 Dose: 10 mg Calcium Carbonate (Calcium Carbonate 750 Mg Tab.Chew) 750 mg PO Q4H PRN PRN Reason: Heartburn Clopidogrel Bisulfate (Clopidogrel Bisulfate 75 Mg Tablet) 75 mg PO DAILY [facility] Last Admin: 05/26/25 08:12 Dose: 75 mg Famotidine (Famotidine 20 Mg Tablet) 20 mg PO DAILY [facility] Last Admin: 05/26/25 08:12 Dose: 20 mg Fluticasone/Vilanterol (Fluticasone/Vilanterol 100/25 Blst.W.Dev) 1 puff INHALE RDAILY [facility] Last Admin: 05/26/25 08:07 Dose: Not Given Heparin Sodium (Porcine) (Heparin Sodium,Porcine 5,000 Unit/Ml Vial) 3,100 unit 40 unit/kg (3100 unit) IVPUSH PROTOCOL BOLUS PRN; Protocol PRN Reason: 40 unit/kg - Heparin Protocol Heparin Sodium (Porcine) (Heparin Sodium,Porcine 5,000 Unit/Ml Vial) 6,200 unit 80 unit/kg (6200 unit) IVPUSH PROTOCOL BOLUS PRN; Protocol PRN Reason: 80 unit/kg - Heparin Protocol Doxycycline Hyclate 100 mg/ (Sodium Chloride) 250 mls @ 166.67 mls/hr IV Q12H [facility] Last Infusion: 05/26/25 01:29 Dose: Infused Ceftriaxone Sodium 1 gm/ (Sodium Chloride) 50 mls @ 100 mls/hr IV Q24H [facility] Last Infusion: 05/25/25 12:44 Dose: Infused Heparin Sodium/Sodium Chloride (Heparin Sodium,Porcine/1/2ns) 25,000 unit in 250 mls @ 0 mls/hr IVCONT .Q0M [facility]; Protocol Last Titration: 05/26/25 07:34 Dose: 14 units/kg/hr, 10.92 mls/hr Magnesium Hydroxide (Milk Of Magnesia 30 Ml Oral.Susp) 30 ml PO DAILY PRN PRN Reason: Constipation Melatonin (Melatonin 3 Mg Tablet) 6 mg PO BEDTIME PRN PRN Reason: Insomnia Memantine (Memantine Hcl 10 Mg Tablet) 10 mg PO BID [facility] Last Admin: 05/26/25 08:12 Dose: 10 mg Quetiapine Fumarate (Quetiapine Fumarate 25 Mg Tablet) 25 mg PO DAILY [facility] Last Admin: 05/26/25 08:12 Dose: 25 mg Quetiapine Fumarate (Quetiapine Fumarate 50 Mg Tablet) 150 mg PO BEDTIME PRN PRN Reason: agitation Last Admin: 05/26/25 01:55 Dose: 150 mg Sodium Chloride (0.9 % Sodium Chloride Flush 3 Ml Syringe) 3 ml IVFLUSH QSHIFT [facility] Last Admin: 05/26/25 08:11 Dose: Not Given Tamsulosin HCl (Tamsulosin Hcl 0.4 Mg Capsule) 0.4 mg PO BEDTIME [facility] Last Admin: 05/25/25 21:19 Dose: 0.4 mg Tiotropium [place] (Tiotropium [place] 2.5 Mcg 1 Puff/2.5 Mcg Mist.Inhal) 2 puff INHALE RDAILY [facility] Last Admin: 05/26/25 08:07 Dose: Not Given Home Medications ?Medication ?Instructions ?Recorded ?Confirmed ?Type fluticasone furoate 100 1 inh inhalation DAILY 05/17/25 05/25/25 History mcg-vilanterol 25 mcg/dose inhalation powder (Breo Ellipta) quetiapine 150 mg tablet 150 mg PO BEDTIME PRN agitation 05/17/25 05/25/25 History quetiapine 25 mg tablet 25 mg PO DAILY 05/17/25 05/25/25 History tiotropium bromide 2.5 2 inh inhalation DAILY COPD 05/17/25 History mcg/actuation mist for inhalation (Spiriva Respimat) memantine 10 mg tablet 10 mg PO BID 05/25/25 05/25/25 History Allergies Allergy/AdvReac Type Severity Reaction Status Date / Time No Known Allergies Allergy Mild NONE Verified 05/25/25 03:47 cats dogs ragweed dust pollen Allergy Unknown Unknown Uncoded 05/25/25 03:47 Physical Exam Vital signs: Vital Signs Temp 97.8 F 05/26/25 07:35 Pulse 90 05/26/25 07:35 Resp 20 05/26/25 07:35 BP 145/78 H 05/26/25 07:35 Pulse Ox 97 05/26/25 07:35 O2 Del Method Nasal Cannula 05/26/25 07:35 O2 Flow Rate 3 05/26/25 07:35 Intake & Output 05/25/25 05/26/25 05/26/25 18:59 06:59 18:59 Intake Total 550 / 877.714 327.714 / 877.714 69.524 / 69.524 Output Total 150 / 1100 950 / 1100 Balance 400 / -222.286 -622.286 / -222.286 69.524 / 69.524 Urine Output (Average ml/kg/hr) 0.16 1.01 1.01 Intake: Intake, IV Amount 550 / 877.714 327.714 / 877.714 69.524 / 69.524 Doxycycline Hyclate 100 mg In 0 250 / 500 250 / 500 .9 % Sodium Chloride 250 ml @ 166.67 mls/hr IV Q12H [facility] Rx#: [id number] cefTRIAXone sodium 1 gm In 0.9 50 / 50 % Sodium Chloride 50 ml @ 100 mls/hr IV Q24H [facility] Rx#: [id number] 0.9 % Sodium Chloride 1,000 ml 250 / 250 @ 100 mls/hr IVCONT .Q10H [facility] Rx#:[id number] Heparin Sodium,Porcine/1/2NS 25 77.714 / 77.714 69.524 / 69.524 ,000 unit In 250 ml @ Per Protocol IVCONT .Q0M [facility] Rx#: [id number] Output: Output, Urine Amount 150 / 1100 950 / 1100 Other: Urine elizabeth Urine Color Aidee Last Bowel Movement 05/25/25 05/25/25 Weight 78 kg Weight 78 kg - Constitutional Present: moderate distress - Routine HEENT Exam Head: Present: normocephalic Eye: Present: normal appearance ENT: Present: mucous membranes moist Hem/Onc Consult Result - Labs CBC & Chem 7: 05/26/25 06:28 05/26/25 06:28 Labs: Short CBC 05/26/25 Range/Units 06:28 WBC 9.9 (4.8-10.8) X10*3/uL Hgb 12.4 L (14.0-18.0) g/dl Hct 38.3 L (42.0-52.0) % Plt Count 180 (160-400) X10*3/uL BMP 05/26/25 06:28 Sodium 143 Potassium 4.0 Chloride 109 H Carbon Dioxide 24 BUN 33 H Creatinine 1.21 Calcium 9.0 Assessment and Plan Patient Active problem list reviewed?: Yes (1) Pulmonary embolism Status: Acute Assessment and plan: 84 year old gentleman, with underlying dementia, admitted with chest pressure, SOB and LUE numbness. Co-existing problems: 1. Pneumonia. 2. Possible T.I.A. 3. Concern is for P.E, with VQ scan revealing Intermediate probability of P.E. Apparently he has been non compliant with Eliquis. Pt. has been started on IV Heparin for now. PLAN: He can be switched back to the Eliquis. Continue supportive care and management of Pneumonia, as you are doing. Thanks for the consult, CC: Dr. Harvey. - Time Spent With Patient Time Spent with Patient (in minutes): 30
[2025-05-26] MEDS: Albuterol/Iprat 2.5/0.5MG 3 ML AMPUL.NEB INHALE ×3 (11:29→20:50)
[2025-05-26] MEDS: Heparin Sodium,Porcine/1/2NS 25,000 UNIT/250 ML IV.SOLN 10.92 UNIT IVCONT (16:28)
[2025-05-26] MEDS: 0.9 % Sodium Chloride Flush 3 ML SYRINGE IVFLUSH (20:00)
[2025-05-27] VITALS (11 sets, daily range): BP systolic 122–180; BP diastolic 61–87; PULSE 71–91; RESP 16–18; TEMP 36.4–37; O2SAT 90–96
[2025-05-27 07:31] LABS: PTT Heparin Drip 84.5 SEC (53-77.9)
--- NOTE | 2025-05-27 08:16 | P.PNIM_ITS ---
Subjective Subjective Date of Service: 05/27/25 Interval History: possible pulm emboli pneumonia Review of Systems seems slowly improving more calm today Review of Systems: Yes all other systems are reviewed and are negative Physical Exam 2 Exam: Exam: Appearance: awake ,more calm cvs: rrr, [id number] . res: air entry fair, very few wheezing abd: no rebound or guarding ,nt, bs present. ext pulses present , no cyanosis . neuro: moves alll ext . Vital Signs: Vital Signs: Last Vital Signs Temp 98.3 F 05/27/25 03:50 Pulse 83 05/27/25 03:50 Resp 18 05/27/25 03:50 BP 136/61 05/27/25 03:50 Pulse Ox 90 L 05/27/25 03:50 O2 Del Method Room Air 05/27/25 03:50 O2 Flow Rate 3 05/26/25 16:00 Oxygen Flow Rate 3 05/25/25 03:44 BMI result Body Mass Index 24.7 Objective Data Active Medications Acetaminophen (Acetaminophen 325 Mg Tablet) 650 mg PO Q6H PRN PRN Reason: Pain, Mild 1-3,fever,headache Last Admin: 05/27/25 08:08 Dose: 650 mg Documented By: ANTONIETTA Albuterol/Ipratropium (Albuterol/Iprat 2.5/0.5mg 3 Ml Ampul.Neb) 3 ml INHALE RQ4H WHILE AWAKE [facility] Last Admin: 05/27/25 07:52 Dose: Not Given Documented By: MILI Non-Admin Reason: Patient Asleep Atorvastatin Calcium (Atorvastatin Calcium 10 Mg Tablet) 10 mg PO BEDTIME [facility] Last Admin: 05/26/25 20:00 Dose: 10 mg Documented By: ABDULAZIZ Calcium Carbonate (Calcium Carbonate 750 Mg Tab.Chew) 750 mg PO Q4H PRN PRN Reason: Heartburn Clopidogrel Bisulfate (Clopidogrel Bisulfate 75 Mg Tablet) 75 mg PO DAILY [facility] Last Admin: 05/27/25 08:08 Dose: 75 mg Documented By: ANTONIETTA Famotidine (Famotidine 20 Mg Tablet) 20 mg PO DAILY [facility] Last Admin: 05/27/25 08:08 Dose: 20 mg Documented By: ANTONIETTA Fluticasone/Vilanterol (Fluticasone/Vilanterol 100/25 Blst.W.Dev) 1 puff INHALE RDAILY [facility] Last Admin: 05/27/25 07:52 Dose: Not Given Documented By: MILI Non-Admin Reason: Patient Asleep Heparin Sodium (Porcine) (Heparin Sodium,Porcine 5,000 Unit/Ml Vial) 3,100 unit 40 unit/kg (3100 unit) IVPUSH PROTOCOL BOLUS PRN; Protocol PRN Reason: 40 unit/kg - Heparin Protocol Heparin Sodium (Porcine) (Heparin Sodium,Porcine 5,000 Unit/Ml Vial) 6,200 unit 80 unit/kg (6200 unit) IVPUSH PROTOCOL BOLUS PRN; Protocol PRN Reason: 80 unit/kg - Heparin Protocol Doxycycline Hyclate 100 mg/ (Sodium Chloride) 250 mls @ 166.67 mls/hr IV Q12H [facility] Last Infusion: 05/27/25 02:06 Dose: Infused Documented By: ABDULAZIZ Ceftriaxone Sodium 1 gm/ (Sodium Chloride) 50 mls @ 100 mls/hr IV Q24H [facility] Last Infusion: 05/26/25 14:16 Dose: Infused Documented By: ANTONIETTA Heparin Sodium/Sodium Chloride (Heparin Sodium,Porcine/1/2ns) 25,000 unit in 250 mls @ 0 mls/hr IVCONT .Q0M [facility]; Protocol Last Titration: 05/27/25 08:04 Dose: 12 units/kg/hr, 9.36 mls/hr Documented By: ANTONIETTA Co-signed By: ANA ROSA Magnesium Hydroxide (Milk Of Magnesia 30 Ml Oral.Susp) 30 ml PO DAILY PRN PRN Reason: Constipation Melatonin (Melatonin 3 Mg Tablet) 6 mg PO BEDTIME PRN PRN Reason: Insomnia Last Admin: 05/26/25 20:00 Dose: 6 mg Documented By: ABDULAZIZ Memantine (Memantine Hcl 10 Mg Tablet) 10 mg PO BID [facility] Last Admin: 05/27/25 08:08 Dose: 10 mg Documented By: ANTONIETTA Quetiapine Fumarate (Quetiapine Fumarate 25 Mg Tablet) 25 mg PO DAILY [facility] Last Admin: 05/27/25 08:08 Dose: 25 mg Documented By: ANTONIETTA Quetiapine Fumarate (Quetiapine Fumarate 50 Mg Tablet) 150 mg PO BEDTIME PRN PRN Reason: agitation Last Admin: 05/26/25 23:37 Dose: 150 mg Documented By: ABDULAZIZ Comments: Early administration OK by MD Armstrong Sodium Chloride (0.9 % Sodium Chloride Flush 3 Ml Syringe) 3 ml IVFLUSH QSHIFT [facility] Last Admin: 05/27/25 07:22 Dose: Not Given Documented By: ANTONIETTA Non-Admin Reason: IV Running Tamsulosin HCl (Tamsulosin Hcl 0.4 Mg Capsule) 0.4 mg PO BEDTIME [facility] Last Admin: 05/26/25 20:00 Dose: 0.4 mg Documented By: ABDULAZIZ Tiotropium [place] (Tiotropium [place] 2.5 Mcg 1 Puff/2.5 Mcg Mist.Inhal) 2 puff INHALE RDAILY [facility] Last Admin: 05/27/25 07:52 Dose: Not Given Documented By: MILI Non-Admin Reason: Patient Asleep Labs 05/26/25 06:28 05/26/25 06:28 Labs: Laboratory Results - last 24 hr 05/26/25 05/27/25 06:28 06:38 MCV 98.7 H MCH 32.0 MCHC 32.4 RDW 12.1 Plt Count 180 MPV 11.1 Absolute Nucleated RBC 0.000 Nucleated RBC % (auto) 0.0 Hold Purple Top SEE NOTE aPTT Heparin Protocol 84.5 H D Anion Gap 14 Estim Creat Clear Calc 46.9 Estimated GFR 57 Random Glucose 116 H Calcium 9.0 Assessment and Plan (1) Hypoxemia: Status: Acute Plan 83 y/o M with a PMH significant for COPD on baseline 3L of home O2, h yperparathyroidism, osteoporosis, pneumonia, pneumothorax, encephalopathy, chronic respiratory failure with hypoxia on baseline 3 L nasal cannula at home, peripheral arterial disease, CHF with preserved EF, DVT on Eliquis,unspecified dementia: Patient was going to bed after long day of celebrating Thanksgiving with family, EMS was called by that patient was fine earlier, he told her he has been awake for 1 hour and feeling is left arm funny(?numbness)and question of chest pressure versus short of breath. When asked the patient says he is not sure why he is here, as per the family he has baseline dementia and has behaviors fluctuations. Currently denies any new symptoms-any chest pain or shortness of breath or weakness numbness numbness left upper ext-? tia per ed: Cta head: 1. CTA neck demonstrates no evidence of an occlusion or dissection. 2. Short segment of mild stenosis within the right vertebral artery. Short segment of high-grade stenosis in the left vertebral artery. 3. Mild stenosis in the proximal left internal carotid artery. 4. CTA head demonstrates no evidence of a large vessel occlusion. No high-grade stenosis. 5. What is favored to represent either CT artifact or a short segment of fenestration is noted within the right M1 segment. Dissection is thought to be unlikely. This can be further assessed with a follow-up exam when patient condition permits. 6. Additional findings are detailed above. plan: symptoms seems improved. neuro checks neurology eval rec conservative workup , added eeg. elevated trop and bnp, ekg unchanged ,denies chest pain -Etiology unclear-likely in setting of pneumonia /ckd, as well as possible pulm emboli: continue iv heparin echo added . possible pneumonia : added iv antibiotics moniter repiratory status closely History of DVT,now possible new pulmonary emboli: Noncompliant with Eliquis We will get V/Q study-Examination is intermediate probability for pulmonary embolus. Switch Eliquis to iv heparin until official results of v/q come back. Anxiety vs agitation: as per similar episodes in home also intermittent continue current home regimen ,may need sitter if remain agitated hx HFpEF: elevated trop and bnp -Etiology unclear-likely in setting of pneumonia /ckd. not looking in excerebation -seems euvolemic echocardiogram 08/21: Technically limited study despite use of contrast agent 2. Normal LV ejection fraction 55-60% with impaired relaxation filling pattern 3. Limited visualization of cardiac valve with normal cardiac valvular Dopplers 4. Mildly elevated right ventricular systolic pressure plan : not looking in excerebation i/o moniter daily weights repeat echo avoid ivf. 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 CAD/HLD Continue statin, Plavix HTN hold lisinopril due to elevated renal function Unspecified dementia/mood disorder Continue memantine, quetiapine ongoing need for stay: possible pulm emboli-on iv heparin ,dao on ckd 3 ,pneumonia -on iv antibiotics ,in addition pending neurology and pt eval, as well as elevated trop/bnp -cardiac workup(echo pending), eeg . Quality Stroke Does the patient have a stroke diagnosis?: No VTE Prior VTE?: Yes VTE Risk Level:: Medical - moderate - high VTE Device Contraindication: N/A - Device Ordered VTE Drug Contraindication: N/A - Med Ordered
[2025-05-27] MEDS: Albuterol/Iprat 2.5/0.5MG 3 ML AMPUL.NEB INHALE ×3 (11:36→20:01)
--- NOTE | 2025-05-27 13:59 | P.CNNE_ITS ---
History of Present Illness Data of Consult Service Date: 05/27/25 Primary Care Provider: Alex Harvey MD HPI Reason for consult: Confusion 84 years old man who probably has moderate dementia was brought to hospital after he was either more confused complain of left limb numbness. When I saw him, he did not know where he was in was unable to provide any meaningful history and history was obtained from chart. There was no recent trauma or cold or flu-like illness. Review of Systems 2 Review of Systems: Could not be reliably done with him. [facility] Past Medical History Medical History Insomnia Pure hypercholesterolemia Essential hypertension Pneumothorax after biopsy Hypoxemia COPD (chronic obstructive pulmonary disease) Pulmonary emphysema Osteopenia Hyperparathyroidism Osteoporosis Vitamin D deficiency Multinodular thyroid Family History Family History Father No problems noted. Mother No problems noted. Surgical History Surgical History Hx of prostatectomy Hx of hernia repair Social History Social History Household Members: Family Household Members Other:: 2 Housing: House Do you presently have visiting nurse or other home services: Yes Alcohol intake: never Comment: 1:1 sitter Patient Tobacco Use Status: Former Tobacco user Tobacco use type: Cigarette Smoked in Last 30 Days: No e-Cigarette/Vaping Use: Never Used Second Hand Smoke Exposure: Yes Use of substances other than those prescribed or required for medical reasons: No Currently Displaying Signs/Symptoms of Drug Intoxication Withdrawal: No Advance Directives: Yes Advance Directives on File: Yes Advance Directives Date on File: 02/28/23 Do you have a plan to hurt others: No Plan service: No Current occupational status: retired Sexual orientation: Straight/Heterosexual Cognitive needs: Yes Hearing needs: No Vision needs: No Meds Allergies Allergy/AdvReac Type Severity Reaction Status Date / Time No Known Allergies Allergy Mild NONE Verified 05/25/25 03:47 cats dogs ragweed dust pollen Allergy Unknown Unknown Uncoded 05/25/25 03:47 Active Medications: Current Medications Acetaminophen (Acetaminophen 325 Mg Tablet) 650 mg PO Q6H PRN PRN Reason: Pain, Mild 1-3,fever,headache Last Admin: 05/27/25 08:08 Dose: 650 mg Albuterol/Ipratropium (Albuterol/Iprat 2.5/0.5mg 3 Ml Ampul.Neb) 3 ml INHALE RQ4H WHILE AWAKE [facility] Last Admin: 05/27/25 11:36 Dose: 3 ml Apixaban (Apixaban 5 Mg Tablet) 10 mg PO BID [facility] Stop: 06/02/25 21:01 Last Admin: 05/27/25 11:38 Dose: 10 mg Atorvastatin Calcium (Atorvastatin Calcium 10 Mg Tablet) 10 mg PO BEDTIME [facility] Last Admin: 05/26/25 20:00 Dose: 10 mg Calcium Carbonate (Calcium Carbonate 750 Mg Tab.Chew) 750 mg PO Q4H PRN PRN Reason: Heartburn Clopidogrel Bisulfate (Clopidogrel Bisulfate 75 Mg Tablet) 75 mg PO DAILY [facility] Last Admin: 05/27/25 08:08 Dose: 75 mg Famotidine (Famotidine 20 Mg Tablet) 20 mg PO DAILY [facility] Last Admin: 05/27/25 08:08 Dose: 20 mg Fluticasone/Vilanterol (Fluticasone/Vilanterol 100/25 Blst.W.Dev) 1 puff INHALE RDAILY [facility] Last Admin: 05/27/25 07:52 Dose: Not Given Doxycycline Hyclate 100 mg/ (Sodium Chloride) 250 mls @ 166.67 mls/hr IV Q12H [facility] Last Infusion: 05/27/25 13:02 Dose: Infused Ceftriaxone Sodium 1 gm/ (Sodium Chloride) 50 mls @ 100 mls/hr IV Q24H [facility] Last Infusion: 05/27/25 13:38 Dose: Infused Magnesium Hydroxide (Milk Of Magnesia 30 Ml Oral.Susp) 30 ml PO DAILY PRN PRN Reason: Constipation Melatonin (Melatonin 3 Mg Tablet) 6 mg PO BEDTIME PRN PRN Reason: Insomnia Last Admin: 05/26/25 20:00 Dose: 6 mg Memantine (Memantine Hcl 10 Mg Tablet) 10 mg PO BID [facility] Last Admin: 05/27/25 08:08 Dose: 10 mg Quetiapine Fumarate (Quetiapine Fumarate 25 Mg Tablet) 25 mg PO DAILY [facility] Last Admin: 05/27/25 08:08 Dose: 25 mg Quetiapine Fumarate (Quetiapine Fumarate 50 Mg Tablet) 150 mg PO BEDTIME PRN PRN Reason: agitation Last Admin: 05/26/25 23:37 Dose: 150 mg Sodium Chloride (0.9 % Sodium Chloride Flush 3 Ml Syringe) 3 ml IVFLUSH QSHIFT [facility] Last Admin: 05/27/25 07:22 Dose: Not Given Tamsulosin HCl (Tamsulosin Hcl 0.4 Mg Capsule) 0.4 mg PO BEDTIME [facility] Last Admin: 05/26/25 20:00 Dose: 0.4 mg Tiotropium [place] (Tiotropium [place] 2.5 Mcg 1 Puff/2.5 Mcg Mist.Inhal) 2 puff INHALE RDAILY [facility] Last Admin: 05/27/25 07:52 Dose: Not Given Home Medications ?Medication ?Instructions ?Recorded ?Confirmed ?Last Taken ?Type fluticasone furoate 100 1 inh inhalation DAILY 05/1705/25/25 05/24/25 History mcg-vilanterol 25 mcg/dose inhalation powder (Breo Ellipta) quetiapine 150 mg tablet 150 mg PO BEDTIME PRN agitat ion 05/17/25 05/25/25 05/24/25 History quetiapine 25 mg tablet 25 mg PO DAILY 05/17/2504/2905/24/25 History tiotropium bromide 2.5 2 inh inhalation DAILY COPD 05/17/25 05/25/25 05/24/25 History mcg/actuation mist for inhalation (Spiriva Respimat) memantine 10 mg tablet 10 mg PO BID 05/25/2505/24/25 History Physical Exam 2 Vital Signs: Vital Signs: Last Vital Signs Temp 97.5 F 05/27/25 12:00 Pulse 73 05/27/25 12:00 Resp 17 05/27/25 12:00 BP 167/87 H 05/27/25 12:00 Pulse Ox 92 05/27/25 12:00 O2 Del Method Room Air 05/27/25 12:00 O2 Flow Rate 3 05/26/25 16:00 Oxygen Flow Rate 3 05/25/25 03:44 BMI result Body Mass Index 24.7 Neuro: Other: Mental Status: He is alert and awake but did not know where he was. Spontaneity and fluency of speech were intact. He was able to follow simple commands. Cranial Nerves: CN II: Visual martinez full to confrontation, visual acuity intact. CN III, IV, : Pupils equal, round, reactive to light and accommodation. Extraocular movements are normal. CN V: Facial sensation is normal. CN VII: Facial movements symmetrical. CN VIII: Hearing intact to bedside conversation is normal. CN IX, X: Palate elevates symmetrically. CN XI: Shoulder shrug and head turn symmetrical. CN XII: Tongue midline without atrophy or fasciculations. Motor: No obvious pronator drift or arm weakness. Reflexes: Deep tendon reflexes were trace to absent. Extrapyramidal: Full facial expressions and blinking. No rigidity. Movements are appropriate with no tremor or abnormality. Speech: Normal; no dysarthria or tremor. Results Labs 05/26/25 06:28 05/26/25 06:28 Labs: [address] [id number] [address] Scan Report Signed Patient: Kvng Leyva Sr MR#: [id number] : 1940 Acct:[id number] Age/Sex: 84 / M ADM Date: 05/25/25 Loc: .ED Attending Dr: Ordering Physician: Amy Gomez DO Date of Service: 05/25/25 Procedure(s): CT angio head neck STROKE Accession Number(s): [id number] cc: Alex Harvey MD; Amy Gomez DO~ Report Number: [id number]: Total DLP = 784.00 mGy-cm Reason for Exam: L sided deficits - arm and leg CLINICAL HISTORY: L sided deficits - arm and leg CTA HEAD WITH CONTRAST AND 3D POST PROCESSING CTA NECK WITH CONTRAST AND 3D POST PROCESSING COMPARISON: Noncontrast CT brain 05/25/2025. FINDINGS: CTA NECK: Sagittal and coronal MIP 3D reconstruction images were performed. Exam is mildly limited due to motion/streak artifact. There is no occlusion, dissection, aneurysm, or vascular malformation. There is no active bleeding. Short segment of mild stenosis is noted in the right vertebral artery on axial image 522 of series 6, at approximately the C3 vertebral body level. There is a short segment of high-grade stenosis within the left vertebral artery, seen at the C3 vertebral body level on axial image 511. Soft and calcific plaque is noted in the right carotid bulb and proximal right internal carotid artery, without significant stenosis. Soft and calcific plaque is noted in the left carotid bulb and proximal left internal carotid artery. There is mild stenosis within the proximal left internal carotid artery. Common carotid arteries, internal carotid arteries, external carotid arteries, and vertebral arteries are otherwise unremarkable. Multilevel degenerative changes are noted within the cervical spine. Upper lungs are partially obscured by motion artifact. Emphysematous changes are noted. Dependent atelectatic change is noted within a portion of the right upper lobe. CTA HEAD: Sagittal and coronal MIP 3D reconstruction images were performed. What is favored to represent either CT artifact or a short segment of fenestration is noted within the right M1 segment on axial image 237 of series 6. Dissection is thought to be unlikely. There is no high-grade stenosis, occlusion, dissection, or vascular malformation. There is no active bleeding. There is mild calcific plaque in the carotid siphons. Terminal internal carotid arteries, middle cerebral arteries, anterior cerebral arteries, basilar artery, and posterior cerebral arteries are otherwise unremarkable. No evidence of dural venous sinus thrombosis. IMPRESSION: 1. CTA neck demonstrates no evidence of an occlusion or dissection. 2. Short segment of mild stenosis within the right vertebral artery. Short segment of high-grade stenosis in the left vertebral artery. 3. Mild stenosis in the proximal left internal carotid artery. 4. CTA head demonstrates no evidence of a large vessel occlusion. No high-grade stenosis. 5. What is favored to represent either CT artifact or a short segment of fenestration is noted within the right M1 segment. Dissection is thought to be unlikely. This can be further assessed with a follow-up exam when patient condition permits. 6. Additional findings are detailed above. Assessment and Plan (1) Encephalopathy: Qualifiers: Encephalopathy type: unspecified encephalopathy Qualified Code(s): G 93.40 - Encephalopathy, unspecified Status: Acute 84 years old man who probably has moderate dementia of Alzheimer type was brought to hospital with more confusion and maybe complain of left arm numbness. At this time he did not offer any complaint. I suggest a conservative approach and only investigating entities that could be treated to improve his quality of life. In that regard, an EEG is recommended to rule out seizure disorder. Procedures Date of Service Date of Service: 05/27/25
[2025-05-27] MEDS: 0.9 % Sodium Chloride Flush 3 ML SYRINGE IVFLUSH (20:51)
[2025-05-28] VITALS (9 sets, daily range): BP systolic 119–170; BP diastolic 72–89; PULSE 76–84; RESP 15–18; TEMP 36.6–37.6; O2SAT 91–97
--- NOTE | 2025-05-28 07:00 | CA_ITS ---
Transthoracic Echocardiogram Patient (Last, First, Middle): Kvng Leyva D Gender: M Date of : 1940 Age: 84 Procedure Date: 05/28/2025 Procedure Type: Transthoracic Echocardiogram [place] [facility] [place]: 177.8 cm Weight: 77.57 kg BSA: 1.95 m2 Heart Rate: 74 bpm BP: 119 / 72 mmHg Rework Operator: Referring MD: Natividad Frausto MD Symptoms: chf ? Study Quality: Adequate w contrast ECG Rhythm: Sinus Conclusions: - The left ventricular systolic function is normal. The visually estimated ejection fraction is between 60-65%. - There is moderately increased left ventricular wall thickness. - No obvious valvular pathology seen on this study. - There is mild dilatation of the ascending aorta measuring 4.20 cm. Findings Procedure Information Contrast agent, definity, is being given per protocol without apparent complications. Left Ventricle Normal left ventricular cavity size. There is moderately increased left ventricular wall thickness. The left ventricular systolic function is normal. The visually estimated ejection fraction is between 60-65%. There is no evidence of regional wall motion abnormalities. Diastolic function is normal for age. Right Ventricle Mildly increased right ventricular cavity size. There is normal right ventricular systolic function. Atria The left atrium is normal in size. The right atrium is mildly dilated. Aortic Valve There is a normal trileaflet aortic valve. There is mild calcification of the aortic valve. There is no aortic valve stenosis. There is no aortic valve regurgitation. Mitral Valve The mitral valve appears normal. There is no mitral valve regurgitation. There is no mitral valve stenosis. Pulmonic Valve The pulmonic valve is likely normal. Tricuspid Valve There is trace tricuspid valve regurgitation. There is no evidence of pulmonary hypertension. Great Vessels There is mild dilatation of the ascending aorta measuring 4.20 cm. Venous The inferior vena cava is normal in size and collapses greater than 50% with inspiration. Pericardium/Pleural There is no evidence of pericardial effusion. Prior Study Comparison Changes noted compared to prior study dated: 08/20/2023. Mild ascending aortic dilatation noted. Recommendations, Care & Conclusions No obvious valvular pathology seen on this study. Measurements 2D Linear Measurements IVSd: 1.32 0.6-0.9/0.6-1.0 cm LVIDd: 4.66 3.9-5.3/4.2-5.9 cm LVIDd Index: 2.39 2.4-3.2/2.2-3.1 cm/m2 LVIDs: 2.90 2.0-3.6 cm LVPWd: 1.36 0.7-1.1 cm LA Diam: 5.10 2.7-3.8/3.0-4.0 cm LAIDs Index: 2.62 1.5-2.3 cm/m2 LV Mass: 306.02 67-162/88-224 g LV Mass Index: 156.93 43-95/49-115 g/m2 LVOT Diam: 2.40 3.0+(-)1.3 cm Mitral Valve MV VTI: 0.40 MV Pk David: 1.06 MV Mn David: 0.61 MV Pk Grad: 4.00 MV Mn Grad: 2.00 MV Pk E: 0.65 MV PK A: 0.90 MV Decel Time: 248.00 E/A: 0.70 E'Lateral: 7.40 E'Medial: 4.68 E/E' Med: 13.80 E/E' Lat: 8.70 PHT: 73.00 MVA PHT: 3.01 MVA Continuity: 2.13 Decel Valencia: 2.61 Aortic Valve AoV Pk David: 1.68 AoV Mn David: 1.14 AoV VTI: 0.33 AoV Pk Grad: 11.00 Aov Mn Grad: 6.00 RIP Cont.VTI: 2.59 LVOT LVOT Pk David: 0.86 LVOT Mn David: 0.53 LVOT VTI: 0.19 LVOT Pk Grad: 3.00 LVOT Mn Grad: 1.00 LVOT Diam: 2.40 LVOT Area: 4.52 Diastolic Function MV Pk E: 0.65 MV Pk A: 0.90 E/A: 0.70 E'Medial: 4.68 E/E' Med: 13.80 E' Laterial: 7.40 E/E' Lat: 8.70 Right Ventricle TAPSE (mm): 25.70 TVS' David: 13.40 Tricuspid Valve TR Pk David: 2.73 TR Pk Grad: 30.00 RA Press: 3.00 RVSP: 33.00 Great Vessels Aorta Sinus of Valsalva: 3.40 2.0-3.5 cm Ao Asc: 4.20 2.1-3.4 cm Pulmonary Valve PV Pk David: 0.94 Peak PV Grad: 4.00 Updated in Other Vendor System with Status of Final Mahad Mott MD electronically signed on 05/28/2025 10:04:48 AM with status of Final
[2025-05-28] MEDS: Albuterol/Iprat 2.5/0.5MG 3 ML AMPUL.NEB INHALE ×2 (07:43→19:23)
[2025-05-28] MEDS: Tiotropium Bromide 2.5 mcg 1 PUFF/2.5 MCG MIST.INHAL 2 PUFF INHALE (07:46)
[2025-05-28] MEDS: Fluticasone/Vilanterol 100/25 BLST.W.DEV 1 PUFF INHALE (07:46)
[2025-05-28] MEDS: 0.9 % Sodium Chloride Flush 3 ML SYRINGE IVFLUSH (09:37)
--- NOTE | 2025-05-28 12:32 | PM.CNGS ---
History of Present Illness Consult details Consult date: 05/28/25 Narrative: Very pleasant 84-year-old gentleman with a history significant for COPD. He underlying Congestive heart failure as well. He has been on home O2 3 L in previously diagnosed with a DVT on Eliquis. He had been in bed after Thanksgiving celebration. There was a question of his left arm numbness. He was subsequently brought in and worked up. Upon workup carotids appeared to be normal but due to his underlying renal function he underwent a V/Q scan for PE which was indeterminate. He now presents to us for vascular evaluation. Review of Systems Review of Systems: Yes all other systems are reviewed and are negative Constitutional: Constitutional: Reports no additional constitutional complaints ENT: Reports Normal hearing present Cardiovascular: Cardiovascular: Denies chest pain, Denies chest pain at rest, Denies chest pain with activity and Denies pedal edema Respiratory: Respiratory: Denies cough Gastrointestinal: Gastrointestinal: Denies abdominal pain Musculoskeletal: Musculoskeletal: Denies abnormal gait, Denies muscle cramps and Denies radiating pain into limb Integumentary/Breasts: Skin/Breast: Denies skin ulcer and Denies wounds Neurologic: Reports Normal hearing present and Denies abnormal gait Psychiatric: Psychiatric: Reports no additional psychiatric complaints PMFSH Past Medical History Medical History Insomnia Pure hypercholesterolemia Essential hypertension Pneumothorax after biopsy Hypoxemia COPD (chronic obstructive pulmonary disease) Pulmonary emphysema Osteopenia Hyperparathyroidism Osteoporosis Vitamin D deficiency Multinodular thyroid Family History Family History Father No problems noted. Mother No problems noted. Surgical History Surgical History Hx of prostatectomy Hx of hernia repair Social History Social History Household Members: Family Household Members Other:: 2 Housing: House Do you presently have visiting nurse or other home services: Yes Alcohol intake: never Comment: 1:1 sitter Patient Tobacco Use Status: Former Tobacco user Tobacco use type: Cigarette Smoked in Last 30 Days: No e-Cigarette/Vaping Use: Never Used Second Hand Smoke Exposure: Yes Use of substances other than those prescribed or required for medical reasons: No Currently Displaying Signs/Symptoms of Drug Intoxication Withdrawal: No Advance Directives: Yes Advance Directives on File: Yes Advance Directives Date on File: 02/28/23 Do you have a plan to hurt others: No Plan service: No Current occupational status: retired Sexual orientation: Straight/Heterosexual Cognitive needs: Yes Hearing needs: No Vision needs: No Meds Allergies Allergy/AdvReac Type Severity Reaction Status Date / Time No Known Allergies Allergy Mild NONE Verified 05/25/25 03:47 cats dogs ragweed dust pollen Allergy Unknown Unknown Uncoded 05/25/25 03:47 Active Medications: Current Medications Acetaminophen (Acetaminophen 325 Mg Tablet) 650 mg PO Q6H PRN PRN Reason: Pain, Mild 1-3,fever,headache Last Admin: 05/27/25 08:08 Dose: 650 mg Albuterol/Ipratropium (Albuterol/Iprat 2.5/0.5mg 3 Ml Ampul.Neb) 3 ml INHALE RQ4H WHILE AWAKE [facility] Last Admin: 05/28/25 11:13 Dose: Not Given Apixaban (Apixaban 5 Mg Tablet) 10 mg PO BID [facility] Stop: 06/02/25 21:01 Last Admin: 05/28/25 09:36 Dose: 10 mg Atorvastatin Calcium (Atorvastatin Calcium 10 Mg Tablet) 10 mg PO BEDTIME [facility] Last Admin: 05/27/25 20:50 Dose: 10 mg Calcium Carbonate (Calcium Carbonate 750 Mg Tab.Chew) 750 mg PO Q4H PRN PRN Reason: Heartburn Clopidogrel Bisulfate (Clopidogrel Bisulfate 75 Mg Tablet) 75 mg PO DAILY [facility] Last Admin: 05/28/25 09:37 Dose: 75 mg Doxycycline Monohydrate (Doxycycline Monohydrate 100 Mg Capsule) 100 mg PO Q12H [facility] Last Admin: 05/28/25 12:06 Dose: 100 mg Famotidine (Famotidine 20 Mg Tablet) 20 mg PO DAILY [facility] Last Admin: 05/28/25 09:37 Dose: 20 mg Fluticasone/Vilanterol (Fluticasone/Vilanterol 100/25 Blst.W.Dev) 1 puff INHALE RDAILY [facility] Last Admin: 05/28/25 07:46 Dose: 1 puff Ceftriaxone Sodium 1 gm/ (Sodium Chloride) 50 mls @ 100 mls/hr IV Q24H [facility] Last Admin: 05/28/25 12:06 Dose: 100 mls/hr Magnesium Hydroxide (Milk Of Magnesia 30 Ml Oral.Susp) 30 ml PO DAILY PRN PRN Reason: Constipation Melatonin (Melatonin 3 Mg Tablet) 6 mg PO BEDTIME PRN PRN Reason: Insomnia Last Admin: 05/27/25 20:51 Dose: 6 mg Memantine (Memantine Hcl 10 Mg Tablet) 10 mg PO BID [facility] Last Admin: 05/28/25 09:36 Dose: 10 mg Quetiapine Fumarate (Quetiapine Fumarate 25 Mg Tablet) 25 mg PO DAILY [facility] Last Admin: 05/28/25 09:36 Dose: 25 mg Quetiapine Fumarate (Quetiapine Fumarate 50 Mg Tablet) 150 mg PO BEDTIME PRN PRN Reason: agitation Last Admin: 05/27/25 20:50 Dose: 150 mg Sodium Chloride (0.9 % Sodium Chloride Flush 3 Ml Syringe) 3 ml IVFLUSH QSHIFT [facility] Last Admin: 05/28/25 09:37 Dose: 3 ml Tamsulosin HCl (Tamsulosin Hcl 0.4 Mg Capsule) 0.4 mg PO BEDTIME [facility] Last Admin: 05/27/25 20:50 Dose: 0.4 mg Tiotropium [place] (Tiotropium [place] 2.5 Mcg 1 Puff/2.5 Mcg Mist.Inhal) 2 puff INHALE RDAILY [facility] Last Admin: 05/28/25 07:46 Dose: 2 puff Home Medications ?Medication ?Instructions ?Recorded ?Confirmed ?Last Taken ?Type fluticasone furoate 100 1 inh inhalation DAILY 05/17/25 05/25/25 05/24/25 History mcg-vilanterol 25 mcg/dose inhalation powder (Breo Ellipta) quetiapine 150 mg tablet 150 mg PO BEDTIME PRN agitation 05/17/25 05/25/25 05/24/25 History quetiapine 25 mg tablet 25 mg PO DAILY 05/17/25 05/25/25 05/24/25 History tiotropium bromide 2.5 2 inh inhalation DAILY COPD 05/17/25 05/25/25 05/24/25 History mcg/actuation mist for inhalation (Spiriva Respimat) memantine 10 mg tablet 10 mg PO BID 05/25/25 05/25/25 05/24/25 History Physical Exam Vital Signs: Vital Signs: Last Vital Signs Temp 97.8 F 05/28/25 12:03 Pulse 77 05/28/25 12:03 Resp 15 05/28/25 12:03 BP 127/87 05/28/25 12:03 Pulse Ox 96 05/28/25 12:03 O2 Del Method Nasal Cannula 05/28/25 12:03 O2 Flow Rate 2 05/28/25 12:03 Oxygen Flow Rate 3 05/25/25 03:44 BMI result Body Mass Index 24.7 Const: General: cooperative, healthy appearing and comfortable Orientation/consciousness: oriented to person, oriented to place and oriented to time HEENT: Head: Yes normal to inspection Neck: Neck: Yes normal visual inspection Carotids: no bruits Chest: Chest palpation & inspection: normal inspection of the chest Resp: Effort & Inspection: normal respiratory effort and able to speak in complete sentences Auscultation: clear to auscultation bilaterally, no crackles, no rales, no rhonchi and no wheezes Cardio: Rate: regular rate Rhythm: regular rhythm Heart sounds: S1 normal heart sound present and S2 normal heart sound present Bruits: no carotid bruits Peripheral pulses: Peripheral pulses 2+ throughout GI: Inspection: Yes normal to inspection Skin: Wounds: no wounds Hair: normal Neuro: General: oriented to person, oriented to place and oriented to time Cranial nerves: Yes CN's II-XII intact bilaterally and Yes Normal hearing present Cognition (Neuro): normal cognition Motor exam (neuro): 5/5 motor strength present throughout Extrem: Other: venous exam: No significant superficial varicosities or spider telangiectasias, minimal edema General: No clubbing, No cyanosis and No edema Psych: Appearance: grossly normal Mental Status: mental status grossly normal Speech and movement: Normal speech and movement present Results Labs 05/26/25 06:28 05/26/25 06:28 Labs: All other labs normal. Imaging Additional studies: DVT study positive for chronic DVT V/Q scan indeterminate Assessment and Plan (1) DVT (deep venous thrombosis): Qualifiers: Affected thrombotic vein of extremity: other lower extremity vein Chronicity: acute DVT location: lower extremity Laterality: bilateral Qualified Code(s): I82.493 - Acute embolism and thrombosis of other specified deep vein of lower extremity, bilateral Status: Inactive Plan In short patient has a chronic DVT. If this does not appear to be acute in nature. In addition his V/Q scan was indeterminate. This way be a way high false positive due to his history of COPD. Unfortunately I am unable to perform an intervention without a CT angiogram of the chest. In addition I suspect the probability of me intervening is extremely low just by his overall status. I did discuss the findings with the patient. At the current time would recommend anticoagulation only. We did discuss the fact that he needs to be on the appropriate regimen and follow protocol. He will follow up with us on an as-needed basis. Thank you for allowing us to assist in his care. If there are any questions or concerns please do not hesitate to contact us. Procedures Date of Service Date of Service: 05/28/25
--- NOTE | 2025-05-28 15:09 | MHC.CM.PN ---
CM spoke with pt.'s re: TRAVIS, she is pt.'s primary field care advocate and she would like pt. to come home rather than go to [facility] due to his Dementia / memory impairment. She would like him to go home via BLS, due to his O 2. CM to update [facility].
--- NOTE | 2025-05-28 15:50 | PC.NURSE ---
Courtney catheter removed at 15:45 per telephone order. Due to void at 21:45 05/28/25.
--- NOTE | 2025-05-28 17:35 | HO.PM.IMPN ---
Subjective Subjective Date of Service: 05/28/25 Interval History: possible pulm emboli pneumonia Review of Systems seems slowly improving more calm today Physical Exam Exam: Exam: Appearance: awake ,more calm cvs: rrr, [id number] . res: air entry fair, very few wheezing abd: no rebound or guarding ,nt, bs present. ext pulses present , no cyanosis . neuro: moves alll ext . Vital Signs: Vital Signs: Last Vital Signs Temp 99.7 F 05/28/25 15:35 Pulse 76 05/28/25 15:35 Resp 17 05/28/25 15:35 BP 131/89 05/28/25 15:35 Pulse Ox 97 05/28/25 15:35 O2 Del Method Nasal Cannula 05/28/25 15:35 O2 Flow Rate 3 05/28/25 15:35 Oxygen Flow Rate 3 05/25/25 03:44 BMI result Body Mass Index 24.7 Objective Data Active Medications Acetaminophen (Acetaminophen 325 Mg Tablet) 650 mg PO Q6H PRN PRN Reason: Pain, Mild 1-3,fever,headache Last Admin: 05/27/25 08:08 Dose: 650 mg Documented By: ANTONIETTA Albuterol/Ipratropium (Albuterol/Iprat 2.5/0.5mg 3 Ml Ampul.Neb) 3 ml INHALE RQ4H WHILE AWAKE [facility] Last Admin: 05/28/25 16:09 Dose: Not Given Documented By: PAO Non-Admin Reason: Patient Refused Apixaban (Apixaban 5 Mg Tablet) 10 mg PO BID [facility] Stop: 06/02/25 21:01 Last Admin: 05/28/25 09:36 Dose: 10 mg Documented By: MIQUEL Atorvastatin Calcium (Atorvastatin Calcium 10 Mg Tablet) 10 mg PO BEDTIME [facility] Last Admin: 05/27/25 20:50 Dose: 10 mg Documented By: SALEEM Calcium Carbonate (Calcium Carbonate 750 Mg Tab.Chew) 750 mg PO Q4H PRN PRN Reason: Heartburn Clopidogrel Bisulfate (Clopidogrel Bisulfate 75 Mg Tablet) 75 mg PO DAILY [facility] Last Admin: 05/28/25 09:37 Dose: 75 mg Documented By: MIQUEL Doxycycline Monohydrate (Doxycycline Monohydrate 100 Mg Capsule) 100 mg PO Q12H [facility] Last Admin: 05/28/25 12:06 Dose: 100 mg Documented By: MIQUEL Famotidine (Famotidine 20 Mg Tablet) 20 mg PO DAILY [facility] Last Admin: 05/28/25 09:37 Dose: 20 mg Documented By: MIQUEL Fluticasone/Vilanterol (Fluticasone/Vilanterol 100/ Blst.W.Dev) 1 puff INHALE RDAILY [facility] Last Admin: 05/28/25 07:46 Dose: 1 puff Documented By: PAO Ceftriaxone Sodium 1 gm/ (Sodium Chloride) 50 mls @ 100 mls/hr IV Q24H [facility] Last Infusion: 05/28/25 12:59 Dose: Infused Documented By: MIQUEL Magnesium Hydroxide (Milk Of Magnesia 30 Ml Oral.Susp) 30 ml PO DAILY PRN PRN Reason: Constipation Melatonin (Melatonin 3 Mg Tablet) 6 mg PO BEDTIME PRN PRN Reason: Insomnia Last Admin: 05/27/25 20:51 Dose: 6 mg Documented By: SALEEM Memantine (Memantine Hcl 10 Mg Tablet) 10 mg PO BID [facility] Last Admin: 05/28/25 09:36 Dose: 10 mg Documented By: MIQUEL Quetiapine Fumarate (Quetiapine Fumarate 25 Mg Tablet) 25 mg PO DAILY [facility] Last Admin: 05/28/25 09:36 Dose: 25 mg Documented By: MIQUEL Quetiapine Fumarate (Quetiapine Fumarate 50 Mg Tablet) 150 mg PO BEDTIME PRN PRN Reason: agitation Last Admin: 05/27/25 20:50 Dose: 150 mg Documented By: SALEEM Sodium Chloride (0.9 % Sodium Chloride Flush 3 Ml Syringe) 3 ml IVFLUSH QSHIFT [facility] Last Admin: 05/28/25 15:54 Dose: Not Given Documented By: MIQUEL Non-Admin Reason: Previously Administered Tamsulosin HCl (Tamsulosin Hcl 0.4 Mg Capsule) 0.8 mg PO BEDTIME [facility] Tiotropium [place] (Tiotropium [place] 2.5 Mcg 1 Puff/2.5 Mcg Mist.Inhal) 2 puff INHALE RDAILY [facility] Last Admin: 05/28/25 07:46 Dose: 2 puff Documented By: PAO Labs 05/26/25 06:28 05/26/25 06:28 Assessment and Plan (1) Hypoxemia: Status: Acute Plan 83 y/o M with a PMH significant for COPD on baseline 3L of home O2, hyperparathyroidism, osteoporosis, pneumonia, pneumothorax, encephalopathy, chronic respiratory failure with hypoxia on baseline 3 L nasal cannula at home, peripheral arterial disease, CHF with preserved EF, DVT on Eliquis,unspecified dementia: Patient was going to bed after long day of celebrating Thanksgiving with family, EMS was called by that patient was fine earlier, he told her he has been awake for 1 hour and feeling is left arm funny(?numbness)and question of chest pressure versus short of breath. When asked the patient says he is not sure why he is here, as per the family he has baseline dementia and has behaviors fluctuations. Currently denies any new symptoms-any chest pain or shortness of breath or weakness numbness Metabolic encephalopathy : Multifactorial Numbness improved since admission date. Unclear if he had any arm numbness. Cta head: 1. CTA neck demonstrates no evidence of an occlusion or dissection. 2. Short segment of mild stenosis within the right vertebral artery. Short segment of high-grade stenosis in the left vertebral artery. 3. Mild stenosis in the proximal left internal carotid artery. 4. CTA head demonstrates no evidence of a large vessel occlusion. No high-grade stenosis. 5. What is favored to represent either CT artifact or a short segment of fenestration is noted within the right M1 segment. Dissection is thought to be unlikely. This can be further assessed with a follow-up exam when patient condition permits. 6. Additional findings are detailed above. plan: symptoms seems improved. neuro checks neurology eval rec conservative management , added eeg. elevated trop and bnp, ekg unchanged ,denies chest pain -Etiology unclear-likely in setting of pneumonia /ckd, as well as possible pulm emboli: echo: The left ventricular systolic function is normal. The visuallyestimated ejection fraction is between 60-65%. - There is moderately increased left ventricular wall thickness. - No obvious valvular pathology seen on this study. - There is mild dilatation of the ascending aorta measuring 4.20 cm. no new symptoms follow outpatient possible pneumonia : switch emerald antibiotics moniter repiratory status closely History of DVT,now possible new pulmonary emboli: Noncompliant with Eliquis We will get V/Q study-Examination is intermediate probability for pulmonary embolus. Switch Eliquis to iv heparin until official results of v/q come back. Anxiety vs agitation: as per similar episodes in home also intermittent continue current home regimen ,may need sitter if remain agitated hx HFpEF: elevated trop and bnp -Etiology unclear-likely in setting of pneumonia /ckd. not looking in excerebation -seems euvolemic echocardiogram 08/21: Technically limited study despite use of contrast agent 2. Normal LV ejection fraction 55-60% with impaired relaxation filling pattern 3. Limited visualization of cardiac valve with normal cardiac valvular Dopplers 4. Mildly elevated right ventricular systolic pressure plan : not looking in excerebation i/o moniter daily weights repeat echo avoid ivf. dao on ckd 3b: cr seems to be near baseline moniter renal function closely urinary retention: give trial of removing elizabeth adjusted Flomax to 0.8 q.h.s. If still elevated in urine, check PVRs, urology evaluation may need Chronic respiratory failure secondary to COPD on 3 L oxygen at home Not in acute exacerbation Continue home inhalers,duonebs . CAD/HLD Continue statin, Plavix HTN hold lisinopril due to elevated renal function Unspecified dementia/mood disorder Continue memantine, quetiapine ongoing need for stay: possible pulm emboli-on iv heparin ,dao on ckd 3 ,pneumonia -on iv antibiotics ,in addition pending neurology and pt eval, as well as elevated trop/bnp -cardiac workup(echo pending), eeg . Quality Stroke Does the patient have a stroke diagnosis?: No VTE Prior VTE?: Yes VTE Risk Level:: Medical - moderate - high VTE Device Contraindication: N/A - Device Ordered VTE Drug Contraindication: N/A - Med Ordered
[2025-05-29] VITALS (8 sets, daily range): BP systolic 114–137; BP diastolic 61–84; PULSE 82–94; RESP 16–20; TEMP 36.2–37.3; O2SAT 93–97; BMI 24.7
--- NOTE | 2025-05-29 02:12 | ECG_ITS ---
Test Reason : arrhythmia Blood Pressure : */* mmHG Vent. Rate : 98 BPM Atrial Rate : * BPM P-R Int : * ms QRS Dur : 128 ms QT Int : 370 ms P-R-T Axes : * -81 89 degrees QTcB Int : 472 ms Atrial fibrillation Left axis deviation Right bundle branch block T wave abnormality, consider lateral ischemia Abnormal ECG When compared with ECG of 25-May-2025 03:49, Atrial fibrillation has replaced Sinus rhythm ST now depressed in Anterior leads T wave inversion now evident in Anterolateral leads Referred By: Lobo Osman Electronically Signed By: NICCI ELAINE
[2025-05-29] MEDS: 0.9 % Sodium Chloride Flush 3 ML SYRINGE IVFLUSH ×3 (02:54→17:45)
[2025-05-29] MEDS: OLANZapine 10 MG VIAL 5 MG IM (02:54)
--- NOTE | 2025-05-29 03:49 | PC.NURSE ---
At 0210, this Rn was notified by [facility] that patient went into afib. Patient with slight SOB. 95 on 3L. Heart rate between 80s-105. Bp 140s/80s. MD Osman notified. EKG ordered and completed. No further interventions. [id number] patient very agitated. Frequently attempting to get oob. Yelling and swearing at staff. Attempting to pull at lines. notified. One time IM Zyprexa ordered and given with minimal effect.
[2025-05-29] MEDS: Albuterol/Iprat 2.5/0.5MG 3 ML AMPUL.NEB INHALE ×2 (08:12→15:13)
[2025-05-29] MEDS: Tiotropium Bromide 2.5 mcg 1 PUFF/2.5 MCG MIST.INHAL 2 PUFF INHALE (08:13)
[2025-05-29] MEDS: Fluticasone/Vilanterol 100/25 BLST.W.DEV 1 PUFF INHALE (08:13)
--- NOTE | 2025-05-29 11:00 | HO.WOUND ---
Wound Consult: Initial 84 yr old male admitted to [facility] [place] on 05/26/25 - See progress notes and H&P for detailed history. Wound consult placed for hip. Patient agreeable to assessment and photo documentation. previous admission, documentation noted likely stage 2 pressure injury to right hip. upon assessment today area of callus/scab with lifting edges, healed skin beneath. Patient reports history of wound and it has gradually improved over time, he reports being seen by visiting nurses for this wound. Right hip Etiology: healed stage 2 pressure injury Wound Bed: dry callus/scab with lifting edges, healed beneath Drainage / Odor: none Edges: ? hyperpigmentation - blanching Gina wound: ? No Induration, Fluctuance or Warmth noted Pain: none Goals of Treatment: ? foam for offloading/protection Right heel- pale purple intact blanchable spot Left heel- red, intact, blanching bilateral ears intact, reddened and blanching- applied camarena foams to O2 tubing Recommendations: 1. Turn and Reposition every 2 hours and as needed for patient comfort. Use pillows or wedges to support off loading positions. 2. Off Load all bony prominences with use of pillows and heel boots if needed. Apply Preventative foams where needed. 3. Monitor for incontinence and moisture control, use barrier creams when needed for prevention and treatment. 4. Provide adequate and supplemental nutrition. 5. Order or Continue low air loss mattress. 6. When applicable maintain blood glucose levels per Providers order. Right hip: offload pressure with [id number] and pillows, apply skin prep, apply foam, change every 3 days and PRN Re-consult wound care Nurse for wound deterioration or wound changes.
--- NOTE | 2025-05-29 15:53 | P.DS_ITS ---
DS: Providers Provider Date of Service: 05/29/25 Date of admission: 05/26/25 13:48 Date of discharge: 05/29/25 Primary care physician: Alex Harevy MD Consults: 05/25/25 07:27 Consult to Neurology Routine Consulting Provider: [facility] Reason for consultation: tia Has provider been notified: No 05/25/25 17:17 Consult to Hematology / Oncology Routine Consulting Provider: [facility] [place] [facility]Hematology Reason for consultation: pulm emboli/noncomlace with eliquis Has provider been notified: No Consult to Vascular Surgery Routine Consulting Provider: [facility] [place] [facility] Reason for consultation: pulm emboli Has provider been notified: No 05/28/25 15:57 Consult to Wound Care Routine Consulting Provider: [facility] [place] [facility] Management Reason for consultation: small opening to left hip area 05/28/25 17:35 Consult to Urology Routine Consulting Provider: [facility] [place] [facility] Reason for consultation: urinary retention Has provider been notified: No Attending physician on discharge: Natividad Frausto Discharging clinician: Natividad Frausto DS: Diagnosis Discharge Diagnosis (1) Hypoxemia: Status: Acute DS: Summary Hospital Course Hospital Course: HPI:As per the family patient has underlying dementia, poor historian unable to provide much history. History taken from the ED chart as well as family information. 83 y/o M with a PMH significant for COPD on baseline 3L of home O2, hyperparathyroidism, osteoporosis, pneumonia, pneumothorax, encephalopathy, chronic respiratory failure with hypoxia on baseline 3 L nasal cannula at home, peripheral arterial disease, CHF with preserved EF, DVT on Eliquis,unspecified dementia: Patient was going to bed after long day of celebrating Thanksgiving with family, EMS was called by that patient was fine earlier, he told her he has been awake for 1 hour and feeling is left arm funny(?numbness)and ques tion of chest pressure versus short of breath. When asked the patient says he is not sure why he is here, as per the family he has baseline dementia and has behaviors fluctuations. Currently denies any new symptoms-any chest pain or shortness of breath or weakness numbness As per the family patient does not seem to be compliant with his Eliquis(misses evening dosing intermittent) labs imaging ekg reviewed: h/h :11.9/36.2 cr flactuating 1.2 to 1.4 ekg unchanged troponins flat in range 40's bnp 1043 Cta head: 1. CTA neck demonstrates no evidence of an occlusion or dissection. 2. Short segment of mild stenosis within the right vertebral artery. Short segment of high-grade stenosis in the left vertebral artery. 3. Mild stenosis in the proximal left internal carotid artery. 4. CTA head demonstrates no evidence of a large vessel occlusion. No high-grade stenosis. 5. What is favored to represent either CT artifact or a short segment of fenestration is noted within the right M1 segment. Dissection is thought to be unlikely. This can be further assessed with a follow-up exam when patient condition permits. 6. Additional findings are detailed above. cxr:Obstructive lung disease with possible perihilar pneumonitis. added v/q scan. hospital course: 83 y/o M with a PMH significant for COPD on baseline 3L of home O2, hyperparathyroidism, osteoporosis, pneumonia, pneumothorax, encephalopathy, chronic respiratory failure with hypoxia on baseline 3 L nasal cannula at home, peripheral arterial disease, CHF with preserved EF, DVT on Eliquis,unspecified dementia: Patient was going to bed after long day of celebrating Thanksgiving with family, EMS was called by that patient was fine earlier, he told her he has been awake for 1 hour and feeling is left arm funny(?numbness)and question of chest pressure versus short of breath. When asked the patient says he is not sure why he is here, as per the family he has baseline dementia and has behaviors fluctuations. Currently denies any new symptoms-any chest pain or shortness of breath or weakness numbness acute Metabolic encephalopathy : Multifactorial Numbness improved since admission date. Unclear if he had any arm numbness. Cta head: 1. CTA neck demonstrates no evidence of an occlusion or dissection. 2. Short segment of mild stenosis within the right vertebral artery. Short segment of high-grade stenosis in the left vertebral artery. 3. Mild stenosis in the proximal left internal carotid artery. 4. CTA head demonstrates no evidence of a large vessel occlusion. No high-grade stenosis. 5. What is favored to represent either CT artifact or a short segment of fenestration is noted within the right M1 segment. Dissection is thought to be unlikely. This can be further assessed with a follow-up exam when patient condition permits. 6. Additional findings are detailed above. plan: symptoms seems improved.neurology eval rec conservative management, less likely tia , consider outpatient EEG .Follow up with Neurology outpatient if needed. Possible pulmonary embolism: V/Q scan is intermediate probability elevated trop and bnp, ekg unchanged ,denies chest pain -Etiology unclear-likely in setting of pneumonia /ckd, as well as possible pulm emboli: echo: The left ventricular systolic function is normal. The visuallyestimated ejection fraction is between 60-65%. - There is moderately increased left ventricular wall thickness. - No obvious valvular pathology seen on this study. - There is mild dilatation of the ascending aorta measuring 4.20 cm. plan: Initially patient received IV heparin, subsequently switched to p.o. Eliquis. Discussed with hematology in detail length-recommended continue p.o. Eliquis. Follow up with Hematology outpatient. possible pneumonia : Seems to be improved with IV antibiotics, switched to p.o. antibiotics upon discharge, respiratory status improved significantly. Repeat chest imaging in 3-4 weeks to see resolution pneumonia. History of DVT,now possible new pulmonary emboli: Please see above pulmonary embolism section. 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 urinary retention: give trial of removing elizabeth adjusted Flomax to 0.8 q.h.s. If still elevated in urine, check PVRs, urology evaluation may need Chronic respiratory failure secondary to COPD on 3 L oxygen at home Not in acute exacerbation Continue home inhalers,duonebs . CAD/HLD Continue statin, Plavix HTN Blood pressure is stable without lisinopril, continue to monitor blood pressure closely. Unspecified dementia/mood disorder Continue memantine, quetiapine. plan: Complete the course of antibiotic as prescribed, repeat chest imaging in 3-4 weeks to see resolution of pneumonia. Hold lisinopril until repeat BMP. added famotidine 20 mg p.o. q.d. Tamsulosin adjusted to 0.8 mg, consider outpatient urology evaluation for urinary retention. Apixaban adjusted to 10 mg p.o. b.i.d. until 06/03/25 ,then switch apixiban 5 mg po bid from 06/04/25. moniter bmp outpatient eeg outpatient. Follow up with PCP, Nephro, consider outpatient urology evaluation, outpatient EEG. Above management discussed with the patient's son in detail length he understand and in agreement with the above plan, total time spent 50 minute. Time Attestation Total time managing care of this patient today: 50 mintues. Discharge Coordination Time (in mins): 50 min Quality: Safe Use of Opioids Does Pt have an Active Cancer Diagnosis on the Problem List?: No Quality: Stroke Does the patient have a stroke diagnosis?: No Physical Exam Exam: Exam: Appearance: awake ,more calm cvs: rrr, [id number] . res: air entry fair,no rales or wheezing abd: no rebound or guarding ,nt, bs present. ext pulses present , no cyanosis . neuro: moves alll ext . Vital Signs: Vital Signs: Last Vital Signs Temp 98.3 F 05/29/25 12:00 Pulse 82 05/29/25 15:18 Resp 18 05/29/25 15:18 BP 117/61 05/29/25 12:00 Pulse Ox 93 05/29/25 12:00 O2 Del Method Room Air 05/29/25 12:00 O2 Flow Rate 3 05/29/25 07:53 Oxygen Flow Rate 3 05/25/25 03:44 BMI result Body Mass Index 24.7 DS: Data Data Completed and Pending Completed studies during hospitalization [Text1]: Procedures Drainage of Right Pleural Cavity, Percutaneous Approach (08/19/23) Imaging Chest x-ray: Radiologist's impression: ITS Impressions Pulmonary Perfusion Imaging 05/25/25 15:40 IMPRESSION: Examination is intermediate probability for pulmonary embolus. cxr: IMPRESSION: Obstructive lung disease with possible perihilar pneumonitis. echo: Conclusions: - The left ventricular systolic function is normal. The visually estimated ejection fraction is between 60-65%. - There is moderately increased left ventricular wall thickness. - No obvious valvular pathology seen on this study. - There is mild dilatation of the ascending aorta measuring 4.20 cm. Findings Procedure Information Contrast agent, definity, is being given per protocol without apparent complications. Left Ventricle Normal left ventricular cavity size. There is moderately increased left ventricular wall thickness. The left ventricular systolic function is normal. The visually estimated ejection fraction is between 60-65%. There is no evidence of regional wall motion abnormalities. Diastolic function is normal for age. Right Ventricle Mildly increased right ventricular cavity size. There is normal right ventricular systolic function. Atria The left atrium is normal in size. The right atrium is mildly dilated. Aortic Valve There is a normal trileaflet aortic valve. There is mild calcification of the aortic valve. There is no aortic valve stenosis. There is no aortic valve regurgitation. Mitral Valve The mitral valve appears normal. There is no mitral valve regurgitation. There is no mitral valve stenosis. Pulmonic Valve The pulmonic valve is likely normal. Tricuspid Valve There is trace tricuspid valve regurgitation. There is no evidence of pulmonary hypertension. Great Vessels There is mild dilatation of the ascending aorta measuring 4.20 cm. Venous The inferior vena cava is normal in size and collapses greater than 50% with inspiration. Pericardium/Pleural There is no evidence of pericardial effusion. Prior Study Comparison Changes noted compared to prior study dated: 08/20/2023. Mild ascending aortic dilatation noted. Recommendations, Care & Conclusions No obvious valvular pathology seen on this study. Discharge Plan Discharge Anticipated Discharge Date/Time: 05/29/25 15:44 Patient Disposition: [facility] Discharge Diagnosis: Acute metabolic encephalopathy, possible pulmonary embolism Referrals: Alex Harvey MD [Primary Care Provider, Internal Medicine] - 1 Week Discharge Medications: New tamsulosin 0.4 mg Capsule 0.8 mg PO BEDTIME Qty: 1 0RF famotidine 20 mg Tablet 20 mg PO DAILY Qty: 1 0RF doxycycline monohydrate 100 mg Capsule 100 mg PO Q12H Qty: 1 0RF cefuroxime axetil 500 mg Tablet 500 mg PO Q12H Qty: 1 0RF Continued atorvastatin 10 mg tablet 10 mg PO BEDTIME 90 Days Qty: 90 1RF lisinopril 20 mg tablet 20 mg PO DAILY 90 Days Qty: 90 1RF clopidogrel 75 mg tablet 75 mg PO DAILY 90 Days Qty: 90 3RF melatonin 3 mg Tablet 6 mg PO BEDTIME PRN (Reason: Insomnia) Qty: 60 0RF memantine 10 mg tablet 10 mg PO BID quetiapine 25 mg tablet 25 mg PO DAILY quetiapine 150 mg tablet 150 mg PO BEDTIME PRN (Reason: agitation) fluticasone furoate-vilanterol [Breo Ellipta] 100-25 mcg/dose blister with device 1 inh inhalation DAILY Spiriva Respimat 2.5 mcg/actuation mist 2 inh inhalation DAILY Changed apixaban 5 mg tablet 10 mg PO BID 30 Days Qty: 60 0RF Rx Instructions: eliquis 10 mg po bid until 06/03/25 ,then switch 06/04/25 eliquis 5 mg po bid Discharge Orders: Discharge Order (Routine); Ordered 05/29/25 Ordered By: Natividad Frausto Diet: Advance to usual diet Activity on Discharge: As tolerated Stand Alone Forms: Patient Portal Discharge page Print Language: Brazilian Care Plan Goals: Complete the course of antibiotic as prescribed, repeat chest imaging in 3-4 weeks to see resolution of pneumonia. Hold losartan until repeat BMP. Tamsulosin adjusted to 0.8 mg, consider outpatient urology evaluation for urinary retention. Apixaban adjusted to 10 mg p.o. b.i.d. until 06/03/25 ,then switch apixiban 5 mg po bid from 06/04/25. moniter cbc and bmp outpatient eeg outpatient. Health Concerns: as above. Plan of Treatment: as above. Assessment: as above. Patient Instructions: Pneumonia (DC)
--- NOTE | 2025-05-29 16:19 | MHC.CM.PN ---
Second IMM 05/29/25, discussed with on phone. Pt. has been medically cleared to [place], [facility].
== END 2025-05-29 20:40 | disposition skilled nursing facility (03) | DRG 175 ==
LOC: HO.ED 05:34 → HO.EDOVER 07:32 → HO.IMC 14:50
PROVIDERS: Internal Medicine; Admitting Provider Internal Medicine; Emergency Provider Emergency Medicine; PCP Internal Medicine; Visit Provider Internal Medicine
DX: I26.99 Other pulmonary embolism without acute cor pulmonale (principal); G93.41 Metabolic encephalopathy; J18.9 Pneumonia, unspecified organism; J44.0 Chronic obstructive pulmonary disease with (acute) lower respiratory infection; I50.32 Chronic diastolic (congestive) heart failure; I13.0 Hypertensive heart and chronic kidney disease with heart failure and stage 1 through stage 4 chronic kidney disease, or unspecified chronic kidney disease; F02.B11 Dementia in other diseases classified elsewhere, moderate, with agitation; N17.9 Acute kidney failure, unspecified; Z66 Do not resuscitate; N18.32 Chronic kidney disease, stage 3b; I25.10 Atherosclerotic heart disease of native coronary artery without angina pectoris; E78.5 Hyperlipidemia, unspecified; Z99.81 Dependence on supplemental oxygen; Z20.822 Contact with and (suspected) exposure to COVID-19; G30.9 Alzheimer's disease, unspecified; R33.9 Retention of urine, unspecified; Z87.891 Personal history of nicotine dependence; Z86.718 Personal history of other venous thrombosis and embolism; Z91.148 Patient's other noncompliance with medication regimen for other reason; Z79.01 Long term (current) use of anticoagulants; Z79.02 Long term (current) use of antithrombotics/antiplatelets; Z79.51 Long term (current) use of inhaled steroids; Z79.899 Other long term (current) drug therapy
CPT/HCPCS: 36415; 70450; 70496; 70498; 71045; 78580; 80048; 80076; 82803; 82947; 83735; 83880; 84484; 85025; 85027; 85610; 85730; 87637; 93005; 93306; 94640; 97162; 97530; 99222; 99285; A9540; J0131; J0696; J1271; J1644; J2359; Q9957; Q9967

== ENCOUNTER → 2025-05-25 03:49 | Outpatient (BNV) | payer MEDICARE, SELFPAY | PROVIDERS: Admitting Provider Internal Medicine; Emergency Provider Emergency Medicine; PCP Internal Medicine; Visit Provider Internal Medicine Cardiovascular Disease | DX: I45.10 Unspecified right bundle-branch block (principal); I25.2 Old myocardial infarction | CPT/HCPCS: 93010 ==

== ENCOUNTER → 2025-05-25 03:51 | Outpatient (BNV) | payer MEDICARE, SELFPAY | PROVIDERS: Emergency Provider Emergency Medicine; PCP Internal Medicine; Visit Provider Radiology Diagnostic Radiology | DX: R06.02 Shortness of breath (principal); Z86.718 Personal history of other venous thrombosis and embolism | CPT/HCPCS: 78580 ==

== ENCOUNTER → 2025-05-25 07:24 | Outpatient (BNV) | payer MEDICARE, SELFPAY | PROVIDERS: Admitting Provider Internal Medicine; Emergency Provider Emergency Medicine; PCP Internal Medicine; Visit Provider Internal Medicine | DX: R09.02 Hypoxemia (principal); J18.9 Pneumonia, unspecified organism | CPT/HCPCS: 99222; 99232 ==

== ENCOUNTER 2025-05-26 13:48 | Outpatient (BNV) | payer MEDICARE, SELFPAY | END 2025-05-28 07:00 | PROVIDERS: Admitting Provider Internal Medicine; Emergency Provider Emergency Medicine; PCP Internal Medicine; Visit Provider Internal Medicine | DX: I35.8 Other nonrheumatic aortic valve disorders (principal); I71.21 Aneurysm of the ascending aorta, without rupture | CPT/HCPCS: 93306 ==

== ENCOUNTER 2025-05-26 13:48 | Outpatient (BNV) | payer MEDICARE, SELFPAY | END 2025-05-29 02:12 | PROVIDERS: Admitting Provider Internal Medicine; Emergency Provider Emergency Medicine; PCP Internal Medicine; Visit Provider Internal Medicine | DX: I48.91 Unspecified atrial fibrillation (principal); I45.10 Unspecified right bundle-branch block | CPT/HCPCS: 93010 ==

== ENCOUNTER → 2025-05-26 13:48 | Outpatient (BNV) | payer MEDICARE, SELFPAY | PROVIDERS: Admitting Provider Internal Medicine; Emergency Provider Emergency Medicine; PCP Internal Medicine; Visit Provider Psychiatry & Neurology Neurology | DX: G93.40 Encephalopathy, unspecified (principal) | CPT/HCPCS: 99222 ==

== ENCOUNTER → 2025-05-26 13:48 | Outpatient (BNV) | payer MEDICARE, SELFPAY | PROVIDERS: Admitting Provider Internal Medicine; Emergency Provider Emergency Medicine; PCP Internal Medicine; Visit Provider Surgery Vascular Surgery | DX: I82.493 Acute embolism and thrombosis of other specified deep vein of lower extremity, bilateral (principal) | CPT/HCPCS: 99222 ==

== ENCOUNTER → 2025-05-26 13:48 | Outpatient (BNV) | payer MEDICARE, SELFPAY | PROVIDERS: Admitting Provider Internal Medicine; Emergency Provider Emergency Medicine; PCP Internal Medicine; Visit Provider Internal Medicine Medical Oncology | DX: J18.9 Pneumonia, unspecified organism (principal); F03.90 Unspecified dementia, unspecified severity, without behavioral disturbance, psychotic disturbance, mood disturbance, and anxiety | CPT/HCPCS: 99222 ==

== ENCOUNTER 2025-05-29 21:31 | Emergency (ER) | payer MEDICARE, SELFPAY ==
--- NOTE | 2025-05-29 21:34 | ED.GENADULT ---
HPI - General Adult General Chief complaint: General Medical Stated complaint: Returning-facility not accepting pt threating them Time Seen by Provider: 05/29/25 21:34 History of Present Illness ED Provider: Jacobo BUSTILLO narrative: The patient is an 84-year-old male who was just hospitalized at this hospital and discharged a couple of hours ago with a plan for him to be admitted to the [facility] rehab facility. The patient was transferred there by ambulance. Apparently the patient never got off the ambulance stretcher because he indicated he did not wish to stay at [facility] and that he would refused to stay. He became very aggressive in his speech and the staff at [facility] refused to accept him and so the ambulance crew returned him to [facility]. The patient has been admitted 4 days ago on May 25 for concern about a possible TIA and a possible metabolic encephalopathy. He also had an oxygen requirement. He was treated for a possible pneumonia. Additionally he had a V/Q scan that showed intermediate probability and so there was a conclusion that possibly he had a pulmonary embolism. He has a history of a DVT and has been on apixaban. He had his apixaban dosage increased for acute treatment purposes. In addition to the increased dose of apixaban for acute treatment of a possible PE he was also discharged on cefuroxime and doxycycline. Other new medications include tamsulosin and famotidine. The patient was maintained on his baseline atorvastatin, lisinopril, clopidogrel, memantine, quetiapine, fluticasone, and Spiriva. Related Data Home Medications ?Medication ?Instructions ?Recorded ?Confirmed fluticasone furoate 100 1 inh inhalation DAILY 05/17/25 05/30/25 mcg-vilanterol 25 mcg/dose inhalation powder (Breo Ellipta) quetiapine 150 mg tablet 150 mg PO BEDTIME PRN agitation 05/17/25 05/30/25 quetiapine 25 mg tablet 25 mg PO DAILY 05/17/25 05/30/25 tiotropium bromide 2.5 2 inh inhalation DAILY COPD 05/17/25 05/30/25 mcg/actuation mist for inhalation (Spiriva Respimat) memantine 10 mg tablet 10 mg PO BID 05/25/25 05/30/25 Previous Rx's ?Medication ?Instructions ?Recorded melatonin 3 mg tablet 6 mg (2 x 3 mg) PO BEDTIME PRN 03/30/23 Insomnia #60 tabs atorvastatin 10 mg tablet 10 mg PO BEDTIME 90 days #90 tabs 12/22/24 lisinopril 20 mg tablet 20 mg PO DAILY 90 days #90 tabs 12/22/24 apixaban 5 mg tablet 5 mg PO BID 30 days #60 tabs 05/11/25 clopidogrel 75 mg tablet 75 mg PO DAILY 90 days #90 tabs 05/16/25 doxycycline hyclate 100 mg capsule 100 mg PO BID 3 days #5 caps 05/31/25 Allergies Allergy/AdvReac Type Severity Reaction Status Date / Time No Known Allergies Allergy Mild NONE Verified 05/31/25 13:36 cats dogs ragweed dust pollen Allergy Unknown Unknown Uncoded 05/29/25 21:44 Review of Systems Review of Systems: Yes Unobtainable due to mental status PMFSH Past Medical History Medical History Insomnia Pure hypercholesterolemia Essential hypertension Pneumothorax after biopsy Hypoxemia COPD (chronic obstructive pulmonary disease) Pulmonary emphysema Osteopenia Hyperparathyroidism Osteoporosis Vitamin D deficiency Multinodular thyroid Surgical History Hx of prostatectomy Hx of hernia repair Family History Family History Father No problems noted. Mother No problems noted. Social History Social History Household Members: Family Household Members Other:: 2 Housing: House Do you presently have visiting nurse or other home services: Yes Alcohol intake: never Comment: 1:1 sitter Patient Tobacco Use Status: Former Tobacco user Tobacco use type: Cigarette Smoked in Last 30 Days: No e-Cigarette/Vaping Use: Never Used Second Hand Smoke Exposure: Yes Use of substances other than those prescribed or required for medical reasons: No Advance Directives: Yes Advance Directives on File: Yes Advance Directives Date on File: 02/28/23 Do you have a plan to hurt others: No Plan service: No Current occupational status: retired Sexual orientation: Straight/Heterosexual Cognitive needs: Yes Hearing needs: No Vision needs: No Physical Exam ED Vital Signs: Vital Signs - 24 hr 05/30/25 21:13 05/31/25 04:54 05/31/25 05:26 Temperature 99.5 F 98.7 F Pulse Rate 83 88 Respiratory Rate 16 24 H 20 Blood Pressure 104/78 113/79 Pulse Oximetry 100 98 Oxygen Delivery Method Nasal Cannula Nasal Cannula Oxygen Flow Rate 4 3 05/31/25 09:20 05/31/25 10:13 Temperature 98.7 F Pulse Rate 88 Respiratory Rate 16 Blood Pressure 113/79 113/79 Pulse Oximetry 98 Oxygen Delivery Method Nasal Cannula Oxygen Flow Rate 3 BMI result Body Mass Index 24.2 Const Other: The patient is an 84-year-old male who looks somewhat chronically ill. He was awake and alert. He was argumentative and irrational in a manner consistent with dementia. He did not seem in acute distress. HENMT Other: Face is symmetrical, mucous membranes moist Eyes Other: Pupils are round equal, conjunctivae are clear, extraocular movements intact Neck Neck: Yes normal visual inspection, Yes full ROM and Yes no JVD Resp Other: No increased work of breathing or respiratory distress. Some slight scattered wheezes. Cardio Other: The patient has a an irregular rate and rhythm with no murmur GI Other: Abdomen is soft and seems nontender. Skin Other: Skin is dry and unremarkable Neuro Other: The patient is awake and alert. He has an abnormal mental status consistent with dementia. He seems poorly oriented and irrational. Cranial nerves 2 through 12 seem intact. He moves his extremities symmetrically with symmetrical strength than sensation. He does not seem to have any focal neurological deficits Extrem Other: No peripheral edema Course Course Course Narrative: 7:43 AM 05/30/2025 (Dr. Tony Yuen): Patient is signed out to me pending case management involvement, care team involvement unlike a psych team involvement to help with patient home on to rehab facility and was sent back to the ER due to behavioral issues, we will need to determine whether he has capacity which likely does not but also whether there were any medication changes that would enable him to be appropriate for rehab placement 8:58 AM 05/30/2025 (Dr. Tony Yuen): Family would like to have patient go home per my discussion with the behavioral health, however patient has not really been engaging with his providers, so if he is able to ambulate if he is able to engage I can make sure family is comfortable with the and discharge but if he is going to go to rehab need to make sure he is able to participate in rehab activities 9:19 AM 05/30/2025 (Dr. Tony Yuen): Ceci from [facility] was not touch with the patient's family, and speaking to the patient as well, patient is unable to walk, understands that he needs to go to rehab and is agreeable to it right now, as he was sent back to the ER when he was discharged to SNF case management we will need to be involved just to make sure patient is able to go back Time: 08:45 Date: 05/31/25 Provider: LAURA Asher Physician observation ended at 08:45AM. There was some confusion as to patient's medications, it appears that he was supposed to be on doxycycline and cefuroxime but did not specify an end date. It appears that patient was given this for possible coverage of pneumonia. It appears that patient only received 1-2 oral doses which is not appropriate for outpatient pneumonia if this is what they are covering. He did receive IV antibiotics therefore he was given several days of antibiotic p.o. for discharge. Reevaluation(s) Reevaluation #1: Received a call from [facility], the patient did not have a code status listed, they do have a most form from 2022 with the patient, he is a full code, adding the order now Medications Administered Discontinued Medications Generic Name Dose Route Start Last Admin Trade Name Freq PRN Reason Stop Dose Admin Albuterol/Ipratropium 3 ml 05/30/25 04:18 05/30/25 04:36 Albuterol/Iprat 2.5/0.5mg 3 Ml Ampul.Neb INHALE 05/30/25 04:19 3 ml ONCE ONE Administration Apixaban 10 mg 05/30/25 12:00 05/31/25 09:20 Apixaban 5 Mg Tablet PO 06/03/25 11:59 10 mg BID IKE Administration Atorvastatin Calcium 10 mg 05/30/25 21:00 05/30/25 20:05 Atorvastatin Calcium 10 Mg Tablet PO 10 mg BEDTIME IKE Administration Cephalexin HCl 500 mg 05/31/25 09:08 05/31/25 09:20 Cephalexin 500 Mg Capsule PO 05/31/25 09:09 500 mg ONCE ONE Administration Clopidogrel Bisulfate 75 mg 05/30/25 12:00 05/31/25 09:20 Clopidogrel Bisulfate 75 Mg Tablet PO 75 mg DAILY IKE Administration Doxycycline Monohydrate 100 mg 05/31/25 09:08 05/31/25 09:20 Doxycycline Monohydrate 100 Mg Capsule PO 05/31/25 09:09 100 mg ONCE ONE Administration Fluticasone/Vilanterol 1 puff 05/31/25 08:00 05/31/25 08:46 Fluticasone/Vilanterol 100/25 Blst.W.Dev INHALE Not Given RDAILY [facility] Lactated Ringer's 1,000 mls @ 999 mls/hr 05/30/25 01:15 05/30/25 03:00 Lr IV 05/30/25 02:15 Infused .Q1H1M IKE Infusion Acetaminophen 1,000 mg in 100 mls @ 400 mls/hr 05/30/25 04:28 05/30/25 04:56 Ofirmev IV 05/30/25 04:42 Infused ONCE ONE Infusion Lisinopril 20 mg 05/30/25 11:00 05/31/25 09:20 Lisinopril 20 Mg Tablet PO 20 mg DAILY IKE Administration Protocol Melatonin 6 mg 05/29/25 21:53 05/29/25 22:01 Melatonin 3 Mg Tablet PO 05/29/25 21:54 6 mg ONCE ONE Administration Memantine 10 mg 05/30/25 12:00 05/31/25 09:20 Memantine Hcl 10 Mg Tablet PO 10 mg BID IKE Administration Quetiapine Fumarate 150 mg 05/29/25 21:53 05/29/25 22:01 Quetiapine Fumarate 50 Mg Tablet PO 05/29/25 21:54 150 mg ONCE ONE Administration Quetiapine Fumarate 25 mg 05/30/25 12:00 05/31/25 09:20 Quetiapine Fumarate 25 Mg Tablet PO 25 mg DAILY IKE Administration Quetiapine Fumarate 150 mg 05/30/25 11:28 05/30/25 23:12 Quetiapine Fumarate 50 Mg Tablet PO 150 mg BEDTIME PRN Administration agitation Tiotropium [place] 2 puff 05/30/25 11:00 05/31/25 08:46 Tiotropium [place] 2.5 Mcg 1 Puff/2.5 Mcg Mist.Inhal INHALE Not Given RDAILY [facility] Medical Decision Making Medical Decision Making MDM Narrative: The patient is an 84-year-old male who returns to the hospital after being discharged from the hospitalist/medical service after a 4 day hospitalization. As far as I can tell there does not seem to be a particularly exact diagnosis for the patient's hospitalization. There is a question of a possible pulmonary embolism based on a V/Q scan that showed intermediate probability for a pulmonary embolism. He was started on a treatment dose of apixaban (the patient had previously been on apixaban but was apparently not very compliant). Additionally he was discharged on doxycycline and cefuroxime for a question of possible pneumonia on his chest x-ray. Additionally he was started on tamsulosin and famotidine. Also, the patient had an EKG at 02:00 on the morning of his discharge from the hospital, which showed atrial fibrillation. This may be a new diagnosis as I do not see it listed on his problem list. However he is on anticoagulation and he is not tachycardic. His EKG today also shows atrial fibrillation. Nevertheless I do not think there is any new intervention that needs to be addressed with this new diagnosis. My overall impression is that the patient has dementia and that the behavior he exhibited at [facility] was related to his dementia. Apparently the patient had shown signs of agitation while still in the hospital on the medical service. He had received a dose of Zyprexa yesterday night. The patient on arrival here was hemodynamically able. He is on the same nasal oxygen at 4 L that he was discharged on. Labs were done that show possibly some degree of dehydration. His BUN is 43 compared to 33 three days ago. His urine looked concentrated. He was therefore given 1 L of lactated Ringer's. Additionally he was given his evening Seroquel and also a DuoNeb updraft. I will be signing the patient out to my colleague at change of shift pending evaluation by case management, PT, and we have also placed a care team and psychiatry consult as I think his behavioral issues are his limiting factor with regard to placement. I do not think he exhibit any obvious indications for readmission to the hospitalist service. Lab Data 05/29/25 22:34 05/29/25 22:34 Labs: Lab Results 05/29/25 05/30/25 Range/Units 22:34 00:49 WBC 10.5 (4.8-10.8) X10*3/uL RBC 3.84 L (4.60-5.80) X10*6/uL Hgb 12.3 L (14.0-18.0) g/dl Hct 37.5 L (42.0-52.0) % MCV 97.7 (80.0-98.0) fL MCH 32.0 (27.0-33.0) pg MCHC 32.8 (31.0-36.0) g/dl RDW 12.7 (11.0-16.0) % Plt Count 199 (160-400) X10*3/uL MPV 11.1 (9.4-12.4) fL Immature Gran % (Auto) 1.0 H (0.0-0.4) % Neut % (Auto) 77.0 H (45-73) % Lymph % (Auto) 7.7 L (20-40) % Hudson % (Auto) 11.4 H (2-11) % Eos % (Auto) 2.2 (0-4) % Baso % (Auto) 0.7 (0-2) % Lymph # (Auto) 0.8 L (1.2-4.9) X10*3/uL Hudson # (Auto) 1.2 (0.1-1.2) X10*3/uL Eos # (Auto) 0.2 (0.0-0.4) X10*3/uL Baso # (Auto) 0.1 (0.0-0.2) X10*3/uL Abs Immat Gran (auto) 0.10 H (0.00-0.03) X10*3/uL Absolute Neuts (auto) 8.1 (2.0-8.3) x10*3/uL Absolute Nucleated RBC 0.000 (0.0-0.012) X10*3/uL Nucleated RBC % (auto) 0.0 (0.0-0.2) /100WBC Sodium 147 H (135-145) mmol/L Potassium 3.9 (3.3-5.1) mmol/L Chloride 112 H (96-108) mmol/L Carbon Dioxide 23 (22-29) mmol/L Anion Gap 16 (12-20) BUN 43 H (9-16) mg/dL Creatinine 1.23 (0.5-1.4) mg/dL Estim Creat Clear Calc 47.6 Estimated GFR 56 Random Glucose 121 H (60-115) mg/dL Calcium 8.8 (8.4-10.2) mg/dL Total Creatine Kinase 275 H (38-174) U/L Urine Color Dark Yellow Urine Appearance Cloudy Urine pH 5.5 (5.0-9.0) Ur Specific [place] >= 1.030 H (1.005-1.025) Urine Protein 30 (1+) H (Neg-Trace) mg/dL Urine Glucose (UA) Negative (Negative) mg/dL Urine Ketones Trace (Negative) mg/dL Urine Blood Large (3+) H (Negative) Urine Nitrite Negative (Negative) Ur Leukocyte Esterase Trace H (Negative) Urine RBC 6-10 H (0-2) /HPF Urine WBC 0-5 (0-5) /HPF Ur Squamous Epith Cells 0-2 (0-2) /HPF Urine Bacteria None Seen (None Seen) Hyaline Casts 0-2 (0-2) /LPF Discharge Plan Discharge Clinical Impression: Cognitive impairment, Aggressive behavior, Chronic obstructive pulmonary disease requiring supplemental oxygen Atrial fibrillation Qualifiers: Atrial fibrillation type: unspecified Qualified Code(s): I48.91 - Unspecified atrial fibrillation Patient Disposition: Xfer Inpatient Rehab Fac Transfer Details: DR JEFF Paz ACCEPTING Instructions: A-fib (Atrial Fibrillation) (ED) Additional Instructions: You were seen in the emergency department. When you were admitted and discharged several days ago your discharged on antibiotics for coverage of pneumonia. You were given a dose in the emergency room this morning 12/4. We will continue doxycycline for 5 more doses, prescription was printed. If any new or worsening symptoms occur please return for re-evaluation. Prescriptions: New doxycycline hyclate 100 mg capsule 100 mg PO BID 3 Days Qty: 5 0RF No Action atorvastatin 10 mg tablet 10 mg PO BEDTIME 90 Days Qty: 90 1RF lisinopril 20 mg tablet 20 mg PO DAILY 90 Days Qty: 90 1RF apixaban 5 mg tablet 5 mg PO BID 30 Days Qty: 60 0RF clopidogrel 75 mg tablet 75 mg PO DAILY 90 Days Qty: 90 3RF melatonin 3 mg Tablet 6 mg PO BEDTIME PRN (Reason: Insomnia) Qty: 60 0RF memantine 10 mg tablet 10 mg PO BID quetiapine 25 mg tablet 25 mg PO DAILY quetiapine 150 mg tablet 150 mg PO BEDTIME PRN (Reason: agitation) fluticasone furoate-vilanterol [Breo Ellipta] 100-25 mcg/dose blister with device 1 inh inhalation DAILY Spiriva Respimat 2.5 mcg/actuation mist 2 inh inhalation DAILY Referrals: [facility] [Outside] Alex Harvey MD [Primary Care Provider, Internal Medicine] Interventions: ED Discharge Assessment Last Done: 05/31/25 10:13 Discharge Date/Time: 05/31/25 10:13 Print Language: Amharic
[2025-05-29 21:38] VITALS: BMI 24.2
--- NOTE | 2025-05-29 22:01 | ECG_ITS ---
Test Reason : weakness Blood Pressure : */* mmHG Vent. Rate : 82 BPM Atrial Rate : * BPM P-R Int : * ms QRS Dur : 128 ms QT Int : 386 ms P-R-T Axes : * -81 68 degrees QTcB Int : 450 ms Atrial fibrillation (vs flutter) Left axis deviation Right bundle branch block Inferior infarct (cited on or before 28-Feb-2023) Abnormal ECG When compared with ECG of 29-May-2025 02:21, No significant change was found Referred By: Dann Centeno Electronically Signed By: NICCI ELAINE
--- NOTE | 2025-05-29 22:02 | PC.NURSE ---
pt juan r from [facility], pt refused transfer. pt states it is for old people and he was not staying there. pt calm and cooperative upon arriival.
--- NOTE | 2025-05-29 22:03 | PC.NURSE ---
pt medicated per MAR
--- OUTSIDE RECORDS SUMMARY | 2025-05-29 22:04 | XMS_ITS | Encounter Summary ---
Author Organization [facility] Address [address] [place] [id number] Phone Care Team Providers Care Regional Owner Operator Truck Driver Name Role Phone Cedric Sarabia MD Unavailable [phone] Unknown, Unknown Primary Care Provider Manuel mays Encounter Details Date Type Department Care Team (Late st Contact Info) Description 10/05/2023 Telephone [employer] [facility] Internal Medicine [address] [place] [address] Unknown, Unknown, MD Social History Tobacco Use [...] documented as of this encounter Care Teams Regional Owner Operator Truck Driver Relationship Specialty Start Date End Date Unknown, Unknown, MD PCP - General 09/08/23 Cedric Sarabia MD [address] [place] [address] [place] [address] Pulmonary Disease 09/18/22 documented as of this encounter Additional Source Comments The information contained in this document represents components of the legal health record. It is not the complete legal health record.[facility]
--- OUTSIDE RECORDS SUMMARY | 2025-05-29 22:04 | XMS_ITS | Clinical Summary ---
Author Organization [facility] Address [address] [facility] [address] [place] [address] Phone Care Team Providers Care Barrel Waterer Name Role Phone Cedric Sarabia MD Unavailable [phone] Unknown, Unknown Primary Care Provider Manuel mays [...] pleural effusion. They will get this at [facility] and were advised today. He also has pulm f/u in the next few weeks. Will ask nsg to call and inquire what date is Pleural effusion 09/01/2023 Assessment & Plan (09/01/2023 9:41 AM EST): This was after a thoracentesis found on imaging during his admit to [facility] for RLL covid pna-/ It was re checked and resolved as of 08/30/23 CXR. Pressure injury of skin of trochanteric region o f right hip 09/01/2023 Assessment & Plan (09/01/2023 9:36 AM EST): He has a sore on his right hip. There is a [id number] on it. Pt refused to allow me [...] Maintenance Insurance MEDICARE PART A & B [facility] MEDICARE SUPPLEMENT MEDICARE PART A & B [facility] MEDICARE SUPPLEMENT MEDICARE PART A & B [facility] MEDICARE SUPPLEMENT MEDICARE PART A & B [facility] MEDICARE SUPPLEMENT MEDICARE PART A & [place] [address] [place] [address] MEDICARE SUPPLEMENT MEDICARE PART A & B MEDICARE SUPPLEMENT MEDICARE PART A & B [facility] MEDICARE SUPPLEMENT MEDICARE PART A & B [facility] MEDICARE SUPPLEMENT MEDICARE PART A & B [facility] MEDICARE SUPPLEMENT Advance Directives For more information, please contact: [phone] (9AM - 5PM Deena/[facility], Wednesday-Wednesday) Documents on File Type Date Recorded Patient Micromatic Hone Operator Expl anation MOLST 04/03/2019 [facility] Care Teams Barrel Waterer Relationship Specialty Start Date End Date Unknown, Unknown, PCP - General 09/08/23 Cedric Sarabia MD [address] [place] [address] [address] [place] [address] Pulmonary Disease 09/18/22 Additional Source Comments The information contained in this document represents components of the legal health record. It is not the complete legal health record.[facility]
[2025-05-29 22:21] VITALS: BP 114/64; PULSE 83; RESP 18; TEMP 36.9; O2SAT 98
[2025-05-29 22:41] LABS: Hematocrit 37.5 % (42.0-52.0); Hemoglobin 12.3 g/dl (14.0-18.0); Mean Corpuscular Volume 97.7 fL (80.0-98.0); Platelet Count 199 X10*3/uL (160-400); Red Blood Count 3.84 X10*6/uL (4.60-5.80)
[2025-05-29 22:53] LABS: Anion Gap 16 (12-20); Blood Urea Nitrogen 43 mg/dL (9-16); Calcium 8.8 mg/dL (8.4-10.2); Carbon Dioxide 23 mmol/L (22-29); Chloride 112 mmol/L (96-108); Creatinine Clr Calc Pharmacy 47.6; Estimated Glomerular Filt Rate 56; Potassium 3.9 mmol/L (3.3-5.1); Sodium 147 mmol/L (135-145)
[2025-05-30] VITALS (8 sets, daily range): BP systolic 102–173; BP diastolic 48–82; PULSE 72–89; RESP 16–18; TEMP 36.8–37.5; O2SAT 94–100
[2025-05-30 00:58] LABS: Appearance Urine Cloudy; Glucose Urine UA Negative (Negative); PH 5.5 (5.0-9.0); Specific Gravity - Urine >= 1.030 (1.005-1.025); UMIC TRIGGER UACC YES
[2025-05-30] MEDS: Lactated Ringers 1,000 ML 999 ML IV (01:17)
--- NOTE | 2025-05-30 04:28 | PC.NURSE ---
pt declined PO tylenol, provider aware, awaiting new orders. Respiratory therapy at bedside for juliana coronel.
[2025-05-30] MEDS: Albuterol/Iprat 2.5/0.5MG 3 ML AMPUL.NEB INHALE (04:36)
--- NOTE | 2025-05-30 04:48 | PC.NURSE ---
pt medicated per MAR.
--- NOTE | 2025-05-30 06:01 | PC.NURSE ---
Pt attempting to get out of bed, redirected into bed, sat pt up in the bed. bed alarm set, curtain open.
--- NOTE | 2025-05-30 09:26 | PC.NURSE ---
Pt restless, trying to get out of bed, pulling at his O2. Pt needs intermittent redirection, can get violent. Bed alarm is one, yellow sock on pt, camera placed.
--- NOTE | 2025-05-30 09:34 | MHC.CARE ---
Pt does not meet the criteria for a higher level of care. Per Pt's son this is Pt's baseline level of intermittent verbal agitation secondary to his diagnosis of dementia. Pt's family would like to have Pt return home as long as he is able to walk independently. Pt is most appropriate for STR. He reports he does not remember arriving to STR yesterday and refusing to get off the stretcher. Pt is agreeable to STR at this time. Psych consult cancelled. Son informed.
--- NOTE | 2025-05-30 11:22 | PHA.MEDREC ---
Pharmacy Consult ? Medication Reconciliation Pharmacy has reviewed the medication reconciliation completed by nursing. Pt was recently here, pt refused transfer from [facility].
--- NOTE | 2025-05-30 14:06 | MHC.CM.ED ---
Received case management consult overnight. Patient was d/c'd from [facility] to [facility] in the evening. Patient has a history of dementia and ended up showing some dementia sundowning behaviors. Patient was sent back to the ER. Cleared by Care Team. Patient laying comfortably in the hospital bed in overflow. Agreeable to short term rehab. Spoke with patient's , Paige, via telephone at [phone]. Paige feels patient can safely return home and would prefer he d/c home. Spoke with patient's son/HCP, Kvng CABRERA via telephone at [phone]. Kvng does not feel patient can safely return home. STR referral will be broadcasted at this time, with the expectation that patient will not transfer before tomorrow morning. Kvng will speak to his mother, Paige about this d/c plan. Continue to monitor for d/c needs.
--- NOTE | 2025-05-30 18:12 | PC.NURSE ---
Patient helped oob to bedside commode, patient required 2 assist with walker, stand and pivot. Patient did not moved bowel, CORPORATE INTERN replaced male purewick, skin intact, patient voiding tea color urine.
--- NOTE | 2025-05-30 18:13 | PC.NURSE ---
Patient helped oob to bedside commode, patient required 2 assist with walker, stand and pivot. Patient did not moved bowel, RESEARCH & ANALYTICS MANAGER replaced male purewick, skin intact, patient voiding tea color urine. IV flushed, leaking, patent reporting discomfort, IV removed.
--- NOTE | 2025-05-30 20:19 | MHC.CM.ED ---
Family accepted a bed at [facility]. Auth pending. Will need to transport in am. Family will meet patient at facility. CM will call family with time. Contact card given to , Paige ([phone]_
[2025-05-31 04:54] VITALS: BP 113/79; PULSE 88; RESP 24; TEMP 37.1; O2SAT 98
[2025-05-31 05:26] VITALS: RESP 20
--- NOTE | 2025-05-31 09:14 | PC.NURSE ---
Received report from Dony HICKS. Patient sleeping at this time, respirations even/unlabored, sitter at bedside. Plan to d/c to [facility] around 10am today. Will attempt to wake & medicate per 9am provider orders prior to discharge. Care ongoing by this RN.
[2025-05-31 09:20] VITALS: BP 113/79
[2025-05-31 10:13] VITALS: BP 113/79; PULSE 88; RESP 16; TEMP 37.1; O2SAT 98
== END 2025-05-31 10:13 ==
PROVIDERS: Emergency Provider Emergency Medicine; PCP Internal Medicine
DX: G31.84 Mild cognitive impairment of uncertain or unknown etiology (principal); R45.6 Violent behavior; J44.9 Chronic obstructive pulmonary disease, unspecified; Z99.81 Dependence on supplemental oxygen; I48.91 Unspecified atrial fibrillation; E78.00 Pure hypercholesterolemia, unspecified; I10 Essential (primary) hypertension; Z87.891 Personal history of nicotine dependence
CPT/HCPCS: 36415; 80048; 81001; 82550; 85025; 93005; 94640; 96361; 96365; 97162; 99285; J0131; J7120; S9485

== ENCOUNTER 2025-05-31 13:11 | Emergency (ER) | payer MEDICARE, SELFPAY ==
--- NOTE | ~2025-05-31 | XR_ITS ---
EXAMINATION: XR SHOULDER 2 OR MORE VIEWS RIGHT HISTORY: trauma COMPARISON: There are no prior studies available for comparison. FINDINGS: Four views of the right shoulder are submitted. Osseous mineralization is normal. There is no fracture or dislocation. There is mild to moderate degenerative change of the glenohumeral and acromioclavicular joints with joint space narrowing and osteophyte formation. The humeral head is high riding, suggestive of rotator cuff arthropathy. The soft tissues are unremarkable. XR/XR shoulder RT min 2V IMPRESSION: Mild to moderate degenerative change of the glenohumeral and acromioclavicular joints. High riding humeral head, suggestive of rotator cuff arthropathy. Electronically signed by: Hari Henson MD 05/31/2025 03:20 PM [facility]
--- NOTE | ~2025-05-31 | CT_ITS ---
EXAMINATION: CT HEAD WITHOUT IV CONTRAST HISTORY: trauma. TECHNIQUE: Unenhanced helical CT of the head was performed per standard departmental protocol. Coronal and sagittal reformats of the head were also evaluated. One or more of the following techniques was used for dose reduction: Automated exposure control, adjustment of the mA and/or kV according to patient size, use of iterative reconstruction technique. DLP: 756 mGy-cm COMPARISON: Comparison is made with the prior examination dated 05/25/2025. FINDINGS: The study is mildly degraded by patient motion. BRAIN: There is diffuse prominence of the ventricular system and cortical sulci, consistent with atrophy. Periventricular and subcortical white matter hypodensities are noted which are nonspecific, but often seen in the setting of small vessel ischemic disease. There is no mass effect or midline shift. No intra- or extra-axial fluid collections are identified. SINUSES: There are polyps versus mucous retention cysts in the bilateral maxillary sinuses. The mastoid air cells and middle ear cavities are well pneumatized. ORBITS: The visualized orbits are unremarkable. BONES/SOFT TISSUES: The extracranial soft tissues are unremarkable. The calvarium is intact. No suspicious lytic or sclerotic lesions. CT/CT head/brain wo IV con IMPRESSION: No acute intracranial abnormality. Electronically signed by: Hari Henson MD 05/31/2025 03:09 PM [facility] [place]
--- NOTE | ~2025-05-31 | CT_ITS ---
EXAMINATION: CT CERVICAL SPINE WITHOUT CONTRAST CLINICAL INFORMATION: Injury COMPARISON: July 28, 2024 TECHNIQUE: Contiguous axial images through the cervical spine using 3 mm collimation with bone and soft tissue algorithm. Sagittal and coronal reformatted images acquired. This CT examination was performed using dose optimization techniques as appropriate, variously including the following: *Automated exposure control *Adjustment of mA and/or kV according to patient size (this includes techniques or standardized protocols for targeted exams where dose is matched to indication/reason for exam; i.e. extremities or head) *Use of iterative reconstruction technique. DLP: 389.12 mGy-cm FINDINGS: Craniocervical junction is intact with normal alignment between the occipital condyles and lateral masses of C1. Degenerative changes in the periodontal C1 region. Multilevel marginal osteophyte formation and endplate sclerosis subchondral cyst formation decreased intervertebral disc height C3 C7 pronounced at C3-4, C5-6 levels. Grade 1 retrolisthesis C3-4. Bilateral facet joint hypertrophy. Calcifications of the nuchal ligament at C4-5 level. C1 is intact. C2 is intact. C3 is intact. C4 is intact. C5 is intact. C6 is intact. C7 is intact. No prevertebral compartment hematoma. Calcified plaques in both carotid bulbs and ICAs. Tympanic cavities and mastoid cells are aerated. Punctate calcifications in the lingual tonsils. CT/CT cervical spine wo IV con IMPRESSION: Multilevel cervical spondylosis C3 C7 resulting in grade 1 retrolisthesis C3-4 and likely severe central spinal canal stenosis probably compressing the neural elements. No acute fracture or trauma-related listhesis. Fleischner guidelines were followed. Electronically signed by: Sundar Ramos MD 05/31/2025 03:15 PM [facility]
[2025-05-31 13:21] VITALS: BP 122/84; PULSE 80
--- NOTE | 2025-05-31 13:25 | ED.FALL ---
HPI - Fall General Chief Complaint: Fall Stated Complaint: UNWITNESSED FALL Time Seen by Provider: 05/31/25 13:14 Source: EMS Mode of arrival: EMS History of Present Illness HPI Narrative: This is a 84 years old male who was just discharged a couple of hours ago to the skilled nursing sent back because of a fall. He is complaining of right shoulder pain and headache. He is awake and alert he has a history of COPD, atrial fibrillation aggressive behavior again he was placed to the skilled nursing just a few hours ago Onset (ago): hour(s) (1) Fall from: out of bed Fall witnessed: yes, by living facility staff Place fall occurred: skilled nursing/SNF Loss of consciousness: none Context: tripped/slipped Severity: moderate Related Data Home Medications ?Medication ?Instructions ?Recorded ?Confirmed fluticasone furoate 100 1 inh inhalation DAILY 05/17/25 06/01/25 mcg-vilanterol 25 mcg/dose inhalation powder (Breo Ellipta) quetiapine 150 mg tablet 150 mg PO BEDTIME PRN agitation 05/17/25 06/01/25 quetiapine 25 mg tablet 25 mg PO DAILY 05/17/25 06/01/25 tiotropium bromide 2.5 2 inh inhalation DAILY COPD 05/17/25 06/01/25 mcg/actuation mist for inhalation (Spiriva Respimat) memantine 10 mg tablet 10 mg PO BID 05/25/25 06/01/25 apixaban 5 mg tablet 10 mg PO BID 06/01/25 06/01/25 Previous Rx's ?Medication ?Instructions ?Recorded melatonin 3 mg tablet 6 mg (2 x 3 mg) PO BEDTIME PRN 03/30/23 Insomnia #60 tabs atorvastatin 10 mg tablet 10 mg PO BEDTIME 90 days #90 tabs 12/22/24 lisinopril 20 mg tablet 20 mg PO DAILY 90 days #90 tabs 12/22/24 clopidogrel 75 mg tablet 75 mg PO DAILY 90 days #90 tabs 05/16/25 Allergies Allergy/AdvReac Type Severity Reaction Status Date / Time No Known Allergies Allergy Mild NONE Verified 05/31/25 13:36 cats dogs ragweed dust pollen Allergy Unknown Unknown Uncoded 05/29/25 21:44 Review of Systems Review of Systems: Yes Unobtainable due to mental condition PMFSH Past Medical History Attestation statement: The following information was validated with the patient. Medical History Insomnia Pure hypercholesterolemia Essential hypertension Pneumothorax after biopsy Hypoxemia COPD (chronic obstructive pulmonary disease) Pulmonary emphysema Osteopenia Hyperparathyroidism Osteoporosis Vitamin D deficiency Multinodular thyroid Surgical History Hx of prostatectomy Hx of hernia repair Family History Family History Father No problems noted. Mother No problems noted. Social History Social History Household Members: Family Household Members Other:: 2 Housing: House Do you presently have visiting nurse or other home services: Yes Alcohol intake: never Comment: 1:1 sitter Patient Tobacco Use Status: Former Tobacco user Tobacco use type: Cigarette Smoked in Last 30 Days: No e-Cigarette/Vaping Use: Never Used Second Hand Smoke Exposure: Yes Use of substances other than those prescribed or required for medical reasons: No Advance Directives: Yes Advance Directives on File: Yes Advance Directives Date on File: 02/28/23 Do you have a plan to hurt others: No Plan service: No Current occupational status: retired Sexual orientation: Straight/Heterosexual Cognitive needs: Yes Hearing needs: No Vision needs: No Physical Exam Exam: Exam: No acute distress with a C-collar on Vital Signs: Vital Signs: Last Vital Signs Temp 98.4 F 06/01/25 01:58 Pulse 82 06/01/25 01:58 Resp 16 06/01/25 06:22 BP 108/66 06/01/25 01:58 Pulse Ox 96 06/01/25 01:58 O2 Del Method Nasal Cannula 06/01/25 01:58 O2 Flow Rate 2 06/01/25 01:58 BMI result Body Mass Index 28.1 Const: General: cooperative Nutritional Appearance: average body habitus Orientation/consciousness: patient oriented x3 HEENT: Head: Yes normal to inspection Ears: hearing grossly normal bilaterally Face and sinus: Yes normal facial exam Mouth: Normal oral and palatal mucosa present Teeth and gingiva: dentition normal Neck: Other: C-collar on Resp: Effort & Inspection: normal respiratory effort Auscultation: clear to auscultation bilaterally Cardio: Jugular venous distension: no JVD Rate: regular rate Rhythm: regular rhythm GI: Inspection: Yes normal to inspection Palpation (GI): Soft to palpation, not firm, nontender and no guarding Skin: General skin exam: no rashes or lesions noted and elasticity normal Lesions: no lesions Rashes: no rashes Neuro: General: patient oriented x3 Extrem: General: Yes normal to inspection and Yes full ROM Course Reevaluation(s) Reevaluation #1: Head CT and C-spine no acute fracture ,xray shoulder no fx Time: 15:34 Reevaluation #2: 16:00 seen also by showcase maker the plan is to discharge him tomorrow morning to skilled nursing arrangement done by showcase maker Time: 16:02 Reevaluation #3: 5:53 PM [facility] care of this patient who is 84-year-old male comes after a fall he is cleared of any injuries or acute medical emergencies. Plan coordinated with case management today and family is to return him back to assisted facility in the morning due to nighttime agitation and sundowning Time: 08:15 Date: 06/01/25 Provider: LAURA Ayoub Patient in physician observation for case management needs. No acute events reported overnight.? No current issues or complaints. VS stable. Plan for patient to return to [facility] this morning at 11:30 via [facility]. 9:51 AM 06/01/2025 (Natalie Baires PA-C): Physician observation completed at 11:30. Patient will we BLS pickup to [facility] Medications Administered Discontinued Medications Generic Name Dose Route Start Last Admin Trade Name Freq PRN Reason Stop Dose Admin Acetaminophen 975 mg 05/31/25 15:25 05/31/25 15:37 Acetaminophen 325 Mg Tablet PO 05/31/25 15:26 975 mg ONCE ONE Administration Medical Decision Making Medical Decision Making MDM Narrative: Patient is here after a fall at the skilled nursing we will obtain imaging Differential Diagnosis Differential Diagnoses: The differential diagnosis associated with the presentation includes Subdural hematoma/epidural hematoma/cervical spine fracture Admission/Observation Consideration of admission/observation: Escalation of care including admission/observation considered Discharge Plan Discharge Clinical Impression: Fall in elderly patient, COPD (chronic obstructive pulmonary disease) Contusion of right shoulder Qualifiers: Encounter type: initial encounter Qualified Code(s): S40.011A - Contusion of right shoulder, initial encounter Patient Disposition: Xfer Inpatient Rehab Fac Transfer Details: TO: DR JEFF diaz ACCEPTING Instructions: Contusion in Adults (ED), Fall Prevention (ED) Additional Instructions: Please continue home prescribed medications Follow up with your doctor Imaging studies were unremarkable Prescriptions: No Action atorvastatin 10 mg tablet 10 mg PO BEDTIME 90 Days Qty: 90 1RF lisinopril 20 mg tablet 20 mg PO DAILY 90 Days Qty: 90 1RF clopidogrel 75 mg tablet 75 mg PO DAILY 90 Days Qty: 90 3RF melatonin 3 mg Tablet 6 mg PO BEDTIME PRN (Reason: Insomnia) Qty: 60 0RF apixaban 5 mg tablet 10 mg PO BID Rx Instructions: Take 10mg BID until 06/03/2025, then switch to 5 mg BID. memantine 10 mg tablet 10 mg PO BID quetiapine 25 mg tablet 25 mg PO DAILY quetiapine 150 mg tablet 150 mg PO BEDTIME PRN (Reason: agitation) fluticasone furoate-vilanterol [Breo Ellipta] 100-25 mcg/dose blister with device 1 inh inhalation DAILY Spiriva Respimat 2.5 mcg/actuation mist 2 inh inhalation DAILY Referrals: [facility] [Outside] Alex Harvey MD [Primary Care Provider, Internal Medicine] Print Language: Bengali
[2025-05-31 13:34] VITALS: BP 128/73; PULSE 77; RESP 18; TEMP 36.6; O2SAT 97; BMI 28.1
[2025-05-31 16:10] VITALS: BP 119/72; PULSE 87; RESP 18; TEMP 36.7; O2SAT 97
--- NOTE | 2025-05-31 16:11 | PC.NURSE ---
pt is medically clear to go back to [facility] spoke to Jailyn and Sarah from case management and they are very concern that the pt will start sun downing when he gets back to [facility] like he did at [facility] and was sent back to the ED and [facility] refused to take the pt back. plan to let the pt stay in the ED till morning and transport [facility] morning
--- NOTE | 2025-05-31 17:53 | MHC.CM.ED ---
Addendum entered by Madeline Arora 05/31/25 18:32: Med [facility] with apartment community assistant manager. Original Note: CM spoke with Dr. Nuñez and Charge nurse with concerns of transporting patient late today with his hx on ,. Pt has dementia. Transport this am to [facility] was smooth, with family at facility. Family is aware of medical clearance and agreeable to discharge in the morning with family supports at facility to help patient with return to facility. Pt will d/c 06/01 at 11:30 via [facility]. Please alert son, Kvng ([phone]) when patient leaves [facility]
--- NOTE | 2025-05-31 19:17 | PC.NURSE ---
This RN assumed pt care @ 1900. Pt sitting up in bed eating from dinner tray, no signs of distress. Plan of care ongoing.
--- NOTE | 2025-05-31 19:48 | PC.NURSE ---
Pt cleaned and given clean gown and blanket Plan of care ongoing.
[2025-05-31 20:50] VITALS: BP 90/56; PULSE 78; TEMP 36.6; O2SAT 95
--- NOTE | 2025-05-31 23:04 | PC.NURSE ---
Pt boosted in bed for comfort, hob elevated. Plan of care ongoing.
[2025-06-01 01:58] VITALS: BP 108/66; PULSE 82; RESP 16; TEMP 36.9; O2SAT 96
[2025-06-01 06:22] VITALS: RESP 16
--- NOTE | 2025-06-01 07:32 | MHC.EDTECH ---
Pt OOB to commode via stand and pivot. Pt 2 assist and very unsteady on his feet.
--- NOTE | 2025-06-01 07:37 | PHA.MEDREC ---
Pharmacy Consult ? Medication Reconciliation Pharmacy has completed the medication reconciliation. Pt discharged on 05/29/2025 with a 1 day supply of Tamsulosin, Famotidine, doxycycline, and cefuroxime. He was changed to Eliquis 10mg BID to take until 06/03/25 and then back to 5mg BID. will make provider aware.
--- NOTE | 2025-06-01 07:50 | PC.NURSE ---
Patient 1-2 assist to ambulate/commode.
[2025-06-01 10:01] VITALS: BP 111/64; PULSE 76; RESP 16; TEMP 36.5; O2SAT 97
[2025-06-01 10:02] VITALS: BP 111/64; PULSE 76; RESP 16; TEMP 36.5; O2SAT 97
[2025-06-01 12:00] VITALS: BP 111/64; PULSE 82; RESP 18; O2SAT 95
== END 2025-06-01 13:33 ==
PROVIDERS: Emergency Provider Emergency Medicine; PCP Internal Medicine
DX: S40.011A Contusion of right shoulder, initial encounter (principal); R51.9 Headache, unspecified; J44.9 Chronic obstructive pulmonary disease, unspecified; I48.91 Unspecified atrial fibrillation; M81.0 Age-related osteoporosis without current pathological fracture; Y93.89 Activity, other specified; W18.39XA Other fall on same level, initial encounter; Y92.128 Other place in nursing home as the place of occurrence of the external cause; Y99.8 Other external cause status; Z79.899 Other long term (current) drug therapy
CPT/HCPCS: 70450; 72125; 73030; 99284

== ENCOUNTER → 2025-05-31 13:20 | Outpatient (BNV) | payer MEDICARE, SELFPAY | PROVIDERS: Emergency Provider Emergency Medicine; PCP Internal Medicine; Visit Provider Radiology Diagnostic Radiology | DX: M47.812 Spondylosis without myelopathy or radiculopathy, cervical region (principal); M19.071 Primary osteoarthritis, right ankle and foot; Z04.3 Encounter for examination and observation following other accident | CPT/HCPCS: 70450; 72125; 73030 ==

== ENCOUNTER 2025-06-02 08:09 | Inpatient (IN) | payer MEDICARE, SELFPAY ==
[2025-06-02] VITALS (7 sets, daily range): BP systolic 117–165; BP diastolic 67–87; PULSE 69–104; RESP 11–23; TEMP 36.4–37.5; O2SAT 92–96; BMI 27.3; BMI 21.4
--- NOTE | ~2025-06-02 | CT_ITS ---
CLINICAL HISTORY: fall, on AC CT abdomen and pelvis with contrast Comparison: 07/28/2024 Findings: There are bilateral renal cysts. The kidneys are otherwise unremarkable. There are pancreatic calcifications consistent with chronic pancreatitis. The gallbladder and the rest of the solid organs are normal. There is colonic diverticulosis. Pelvic contents unremarkable. Normal appendix. No acute fracture. There is a chronic compression fracture of L1. The rest of the GI tract is unremarkable. IMPRESSION: No acute findings. This document has been electronically signed by: Satya Penny MD on 06/02/2025 11:49:41
--- NOTE | ~2025-06-02 | CT_ITS ---
CLINICAL HISTORY: fall CT cervical spine without contrast Comparison: 05/31/2025 Findings: Vertebral alignment is within normal limits. There is multilevel degenerative disc disease. No acute fractures or dislocations. No acute findings on limited view of the intracranial contents. No cervical fluid collections or masses. No consolidation or effusion at the lung apices. IMPRESSION: No acute findings. This document has been electronically signed by: Satya Penny MD on 06/02/2025 11:49:26
--- NOTE | ~2025-06-02 | CT_ITS ---
CLINICAL HISTORY: fall, on AC CT head without contrast Comparison: CT/REG/SR - CT HEAD WITHOUT IV CONTRAST - 05/31/25 14:43 EST Findings: No intra-axial mass, midline shift, hydrocephalus, or acute hemorrhage. No significant atrophy-like change or white matter disease. There is no sinus or mastoid fluid. The orbits are within normal limits. No skull fracture. Involutional changes are noted. IMPRESSION: 1. No acute intracranial findings. This document has been electronically signed by: Satya Penny MD on 06/02/2025 11:42:00
--- NOTE | ~2025-06-02 | XR_ITS ---
CLINICAL HISTORY: fall 3 view left elbow Comparison: None provided Findings: Bones intact. No dislocations. No significant arthritic change or erosions. No joint effusion. No radiopaque foreign body. IMPRESSION: 1. No acute findings. This document has been electronically signed by: Satya Penny MD on 06/02/2025 09:26:10
--- NOTE | ~2025-06-02 | CT_ITS ---
CLINICAL HISTORY: fall, R sided rib pain, bruising on AC CT chest with contrast Comparison: 07/28/2024 Findings: There is mild coronary artery disease. There is mild aneurysmal dilatation of the ascending thoracic aorta which measures up to 4 cm in diameter. The visualized thyroid and mediastinum are unremarkable. There is a trace right pleural effusion. There is no evidence of pneumothorax. Renal cysts are noted. There are fractures of the anterior aspect of the right 7th 10th and 11th ribs the 11th rib is also fractured posteriorly. No other fractures are noted. IMPRESSION: 1. Multiple right-sided rib fractures as above. 2. Trace right pleural effusion. 3. Mild aneurysmal dilatation of the ascending thoracic aorta. This document has been electronically signed by: Satya Penny MD on 06/02/2025 11:41:22
--- NOTE | ~2025-06-02 | XR_ITS ---
CLINICAL HISTORY: fall 2 view left humerus Comparison: CR/SR - XR HUMERUS LEFT - 07/28/2024 12:44 PM EST Findings: No fractures or dislocations. No significant arthritic change. No radiopaque foreign body. IMPRESSION: 1. Normal left humerus. This document has been electronically signed by: Satya Penny MD on 06/02/2025 09:27:01
--- NOTE | 2025-06-02 08:14 | ED.FALL ---
HPI - Fall General Chief Complaint: Fall Stated Complaint: FALL Time Seen by Provider: 06/02/25 08:13 Source: patient, EMS and RN notes reviewed Mode of arrival: EMS Limitations: other ( Baseline dementia) History of Present Illness ED Provider: Kimmy Vasquez PA-C HPI Narrative: This is an 84-year-old male, with a past medical history COPD on 3 L of home O2, hyperparathyroidism, osteoporosis, pneumonia, pneumothorax, encephalopathy, CHF with preserved EF, DVT on Eliquis, unspecified dementia, who [facility] emergency department from [facility] after an unwitnessed fall. it is unclear how long patient was on the ground for. Unable to get any information from patient due to dementia. MD complaint: fall Fall witnessed: no Place fall occurred: [facility] Related Data Home Medications ?Medication ?Instructions ?Recorded ?Confirmed fluticasone furoate 100 1 inh inhalation DAILY 05/17/25 06/01/25 mcg-vilanterol 25 mcg/dose inhalation powder (Breo Ellipta) quetiapine 150 mg tablet 150 mg PO BEDTIME PRN agitation 05/17/25 06/01/25 quetiapine 25 mg tablet 25 mg PO DAILY 05/17/25 06/01/25 tiotropium bromide 2.5 2 inh inhalation DAILY COPD 05/17/25 06/01/25 mcg/actuation mist for inhalation (Spiriva Respimat) memantine 10 mg tablet 10 mg PO BID 05/25/25 06/01/25 apixaban 5 mg tablet 10 mg PO BID 06/01/25 06/01/25 Previous Rx's ?Medication ?Instructions ?Recorded melatonin 3 mg tablet 6 mg (2 x 3 mg) PO BEDTIME PRN 03/30/23 Insomnia #60 tabs atorvastatin 10 mg tablet 10 mg PO BEDTIME 90 days #90 tabs 12/22/24 lisinopril 20 mg tablet 20 mg PO DAILY 90 days #90 tabs 12/22/24 clopidogrel 75 mg tablet 75 mg PO DAILY 90 days #90 tabs 05/16/25 Allergies Allergy/AdvReac Type Severity Reaction Status Date / Time No Known Allergies Allergy Mild NONE Verified 06/02/25 08:28 cats dogs ragweed dust pollen Allergy Unknown Unknown Uncoded 06/02/25 08:28 Review of Systems Review of Systems: ROS is limited secondary to baseline dementia Yes all other systems are reviewed and are negative Constitutional: Constitutional: Reports as per [facility] Past Medical History Medical History (Updated 06/02/25 @ 13:50 by Estrella Moscoso NP) Insomnia Pure hypercholesterolemia Essential hypertension Pneumothorax after biopsy COPD (chronic obstructive pulmonary disease) Pulmonary emphysema Osteopenia Hyperparathyroidism Osteoporosis Vitamin D deficiency Multinodular thyroid Surgical History Hx of prostatectomy Hx of hernia repair Family History Family History Father No problems noted. Mother No problems noted. Social History Social History Household Members: Family Household Members Other:: 2 Housing: House Do you presently have visiting nurse or other home services: Yes Alcohol intake: never Comment: 1:1 sitter Patient Tobacco Use Status: Former Tobacco user Tobacco use type: Cigarette e-Cigarette/Vaping Use: Never Used Second Hand Smoke Exposure: Yes Advance Directives: Yes Advance Directives on File: Yes Advance Directives Date on File: 02/28/23 Do you have a plan to hurt others: No Plan service: No Current occupational status: retired Sexual orientation: Straight/Heterosexual Cognitive needs: Yes Hearing needs: No Vision needs: No Physical Exam Vital Signs: Vital Signs: Last Vital Signs Temp 97.6 F 06/02/25 08:17 Pulse 86 06/02/25 13:46 Resp 11 L 06/02/25 13:46 BP 122/76 06/02/25 13:46 Pulse Ox 92 06/02/25 13:46 O2 Del Method Room Air 06/02/25 13:46 Oxygen Flow Rate 3 06/02/25 08:17 BMI result Body Mass Index 27.3 Const: Other: 84-year-old male who looks somewhat chronically ill. Does not appear to be in acute distress. Limitations: no limitations HEENT: Head: Yes normal to inspection, Yes normocephalic and Yes atraumatic Ears: hearing grossly normal bilaterally General nose exam: Normal external nose present Face and sinus: Yes normal facial exam Mouth: Normal oral and palatal mucosa present, oropharynx normal and moist mucous membranes Throat: Yes posterior oropharynx normal Eyes: General: appearance normal, both eyes and all related structures Eyelids: Yes eyelids normal Conjunctivae: conjunctivae normal Sclerae: sclerae normal Pupils: Equal, round and reactive pupils present EOM: EOMs intact bilaterally Neck: Other: No midline spine tenderness Neck: Yes normal visual inspection, Yes full ROM and Yes no lymphadenopathy Lymphatic: no lymphadenopathy noted Chest: Other: Right lateral ribs with ecchymosis seen, no bony step-off, tender to palpation Chest palpation & inspection: normal inspection of the chest Resp: Effort & Inspection: normal respiratory effort and able to speak in complete sentences Auscultation: clear to auscultation bilaterally, no crackles, no rales, no rhonchi and no wheezes Cardio: Rate: regular rate Rhythm: regular rhythm Heart sounds: S1 normal heart sound present and S2 normal heart sound present GI: Other: nontender, no ecchymosis seen Inspection: Yes normal to inspection Skin: General skin exam: no rashes or lesions noted Trauma: no lacerations or abrasions Wounds: no wounds Neuro: Other: patient awake and alert. Abnormal mental status consistent with dementia. Cranial nerves 2-12 seem to be intact. Moving all extremities symmetrically with symmetric strength. General: moves all extremities Cranial nerves: Yes Equal, round and reactive pupils present Extrem: Other: Left elbow with ecchymosis seen, tender to palpation, he also has a hematoma noted to his humerus, appears to be new. Mildly tender to palpation. Able to flex and extend at the left elbow. General: Yes normal to inspection Right upper extremity: normal to inspection Left upper extremity: normal to inspection Right lower extremity: normal to inspection Left lower extremity: normal to inspection Medications Administered Discontinued Medications Generic Name Dose Route Start Last Admin Trade Name Freq PRN Reason Stop Dose Admin Sodium Chloride 500 mls @ 500 mls/hr 06/02/25 12:11 06/02/25 14:21 Ns IVCONT 06/02/25 13:10 Infused .Q1H ONE Infusion Iohexol 100 ml 06/02/25 09:41 06/02/25 09:49 Iohexol 350 Mg/Ml 100 Ml Infus..Btl IV 06/02/25 09:42 75 ml ONCE ONE Administration Medical Decision Making Medical Decision Making [facility] Narrative: This is an 84-year-old male, with a past medical history COPD on 3 L of home O2, hyperparathyroidism, osteoporosis, pneumonia, pneumothorax, encephalopathy, CHF with preserved EF, DVT on Eliquis, unspecified dementia, who presents emergency department from detention facility after an unwitnessed fall. On arrival, patient is alert and awake. Patient with ecchymosis seen on the right lateral ribs, with tenderness palpation, concerning for fracture. No flail chest. Patient does appear to be clinically dry. Unclear how long patient was on the ground for. I called over to [place] [facility], spoke to Lizabeth, one of the nurses, states that this event occurred overnight. states that this was an unwitnessed fall and patient was found on the ground. It is unclear how long he was on the ground for, unsure if he was up during the night, unsure when he was put to bed last night. There were not a lot of details regarding this situation. 1:20 PM 06/02/2025 (Kimmy Vasquez PA-C): Labs returned, patient does have an elevated troponin at 110, repeat is 113, this is flat. This is likely reactive, no profound EKG changes seen. He does have slight leukocytosis at 13.1, with a normocytic anemia with an H&H of 12.3/37.6. Patient is hypernatremic at 148, chloride 113. creatinine slightly elevated at 1.5, BUN of 69. Creatinine usually around 1.2/1.3. CPK slightly elevated at 657. Patient does appear to be clinically dry. Will administer 500 cc of normal saline. We will also collect urine and sodium osmolality, and urine Cervical spine CT revealing no acute findings. CT abdomen and pelvis revealing chronic compression fracture of L1, And chronic calcifications of the pancreas, consistent with chronic pancreatitis, otherwise no acute findings. chest CT revealing multiple right-sided rib fractures including the right 7th, 10th, 11th ribs, 11th rib is also fracture posteriorly. There is a trace right pleural effusion, and a mild aneurysmal dilatation of the ascending thoracic aorta. Given overall workup, patient needs to be admitted for further management. Will discussed with hospitalist for transfer of care. 2:15PM 06/02/2025 (Kimmy Vasquez PA-C): Called and spoke to patient's , informing of hospital admission. No further questions or concerns. Differential Diagnosis Differential Diagnoses: The differential diagnosis associated with the presentation includes ACS, ICH, syncope, fall, rib fractures, peritoneal injury Admission/Observation Consideration of admission/observation: Escalation of care including admission/observation considered Lab Data MDM Lab Attestation statement: I reviewed the patient's lab results. see MDM 06/02/25 08:39 06/02/25 13:51 Labs: Lab Results 06/02/25 06/02/25 06/02/25 Range/Units 08:39 11:01 13:31 WBC 13.1 H (4.8-10.8) X10*3/uL RBC 3.77 L (4.60-5.80) X10*6/uL Hgb 12.3 L (14.0-18.0) g/dl Hct 37.6 L (42.0-52.0) % MCV 99.7 H (80.0-98.0) fL MCH 32.6 (27.0-33.0) pg MCHC 32.7 (31.0-36.0) g/dl RDW 12.6 (11.0-16.0) % Plt Count 247 (160-400) X10*3/uL MPV 10.8 (9.4-12.4) fL Immature Gran % (Auto) 1.5 H (0.0-0.4) % Neut % (Auto) 88.7 H (45-73) % Lymph % (Auto) 3.1 L (20-40) % [place] % (Auto) 6.4 (2-11) % Eos % (Auto) 0.0 (0-4) % Baso % (Auto) 0.3 (0-2) % Lymph # (Auto) 0.4 L (1.2-4.9) X10*3/uL [place] # (Auto) 0.8 (0.1-1.2) X10*3/uL Eos # (Auto) 0.0 (0.0-0.4) X10*3/uL Baso # (Auto) 0.0 (0.0-0.2) X10*3/uL Abs Immat Gran (auto) 0.20 H (0.00-0.03) X10*3/uL Absolute Neuts (auto) 11.6 H (2.0-8.3) x10*3/uL Absolute Nucleated RBC 0.000 (0.0-0.012) X10*3/uL Nucleated RBC % (auto) 0.0 (0.0-0.2) /100WBC Sodium 148 H (135-145) mmol/L Potassium 4.0 (3.3-5.1) mmol/L Chloride 113 H (96-108) mmol/L Carbon Dioxide 24 (22-29) mmol/L Anion Gap 15 (12-20) BUN 69 H (9-16) mg/dL Creatinine 1.52 H (0.5-1.4) mg/dL Estim Creat Clear Calc 37.3 Estimated GFR 44 Random Glucose 125 H (60-115) mg/dL Osmolality 333 H (281-305) mosm/kg Calcium 9.2 (8.4-10.2) mg/dL Magnesium 2.2 (1.6-2.6) mg/dL Total Bilirubin 1.0 (0.0-1.0) mg/dL Direct Bilirubin 0.4 (0.0-0.5) mg/dL AST 45 H (5-37) U/L ALT 22 (0-40) U/L Alkaline Phosphatase 99 (39-117) U/L Total Creatine Kinase 657 H (38-174) U/L Troponin I High Sens 110.8 H* D 113.6 H* (<3.5-35.0) ng/L Total Protein 7.1 (6.5-8.0) g/dL Albumin 3.8 (3.5-5.0) g/dL Urine Color Urine Appearance Urine pH (5.0-9.0) Ur Specific Oak[place] (1.005-1.025) Urine Protein (Neg-Trace) mg/dL Urine Glucose (UA) (Negative) mg/dL Urine Ketones (Negative) mg/dL Urine Blood (Negative) Urine Nitrite (Negative) Ur Leukocyte Esterase (Negative) Urine RBC (0-2) /HPF Urine WBC (0-5) /HPF Ur Squamous Epith Cells (0-2) /HPF Urine Bacteria (None Seen) Hyaline Casts (0-2) /LPF Urine Osmolality (373-1093) mosm/kg Ur Random Sodium mmol/L 06/02/25 06/02/25 Range/Units 13:32 13:51 WBC (4.8-10.8) X10*3/uL RBC (4.60-5.80) X10*6/uL Hgb (14.0-18.0) g/dl Hct (42.0-52.0) % MCV (80.0-98.0) fL MCH (27.0-33.0) pg MCHC (31.0-36.0) g/dl RDW (11.0-16.0) % Plt Count (160-400) X10*3/uL MPV (9.4-12.4) fL Immature Gran % (Auto) (0.0-0.4) % Neut % (Auto) (45-73) % Lymph % (Auto) (20-40) % [place] % (Auto) (2-11) % Eos % (Auto) (0-4) % Baso % (Auto) (0-2) % Lymph # (Auto) (1.2-4.9) X10*3/uL [place] # (Auto) (0.1-1.2) X10*3/uL Eos # (Auto) (0.0-0.4) X10*3/uL Baso # (Auto) (0.0-0.2) X10*3/uL Abs Immat Gran (auto) (0.00-0.03) X10*3/uL Absolute Neuts (auto) (2.0-8.3) x10*3/uL Absolute Nucleated RBC (0.0-0.012) X10*3/uL Nucleated RBC % (auto) (0.0-0.2) /100WBC Sodium 149 H (135-145) mmol/L Potassium 3.9 (3.3-5.1) mmol/L Chloride 113 H (96-108) mmol/L Carbon Dioxide 25 (22-29) mmol/L Anion Gap 15 (12-20) BUN 67 H (9-16) mg/dL Creatinine 1.44 H (0.5-1.4) mg/dL Estim Creat Clear Calc 39.4 Estimated GFR 47 Random Glucose 123 H (60-115) mg/dL Osmolality (281-305) mosm/kg Calcium 8.9 (8.4-10.2) mg/dL Magnesium (1.6-2.6) mg/dL Total Bilirubin (0.0-1.0) mg/dL Direct Bilirubin (0.0-0.5) mg/dL AST (5-37) U/L ALT (0-40) U/L Alkaline Phosphatase (39-117) U/L Total Creatine Kinase (38-174) U/L Troponin I High Sens 124.7 H* (<3.5-35.0) ng/L Total Protein (6.5-8.0) g/dL Albumin (3.5-5.0) g/dL Urine Color Yellow Urine Appearance Clear Urine pH 5.0 (5.0-9.0) Ur Specific Oak[place] >= 1.030 H (1.005-1.025) Urine Protein 30 (1+) H (Neg-Trace) mg/dL Urine Glucose (UA) Negative (Negative) mg/dL Urine Ketones 15 (Negative) mg/dL Urine Blood Negative (Negative) Urine Nitrite Negative (Negative) Ur Leukocyte Esterase Negative (Negative) Urine RBC 0-2 (0-2) /HPF Urine WBC 0-5 (0-5) /HPF Ur Squamous Epith Cells 0-2 (0-2) /HPF Urine Bacteria None Seen (None Seen) Hyaline Casts 3-5 (0-2) /LPF Urine Osmolality 886 (373-1093) mosm/kg Ur Random Sodium 32.0 mmol/L Independent Interpretation I performed an independent interpretation of an: EKG Interpretation: EKG revealing atrial fibrillation at a ventricular rate of 78 beats per minute, patient with right bundle-branch block, seen on previous. QT QTC 432/492. Radiology Impression Discussion of test interpretation with radiology: I have reviewed the radiologist's reading. Radiologist Impression: Findings: Vertebral alignment is within normal limits. There is multilevel degenerative disc disease. No acute fractures or dislocations. No acute findings on limited view of the intracranial contents. No cervical fluid collections or masses. No consolidation or effusion at the lung apices. IMPRESSION: No acute findings. This document has been electronically signed by: Satya Penny MD on 06/02/2025 11:49:26 Dictated By: Satya Penny MD CT abdomen and pelvis with contrast Comparison: 07/28/2024 Findings: There are bilateral renal cysts. The kidneys are otherwise unremarkable. There are pancreatic calcifications consistent with chronic pancreatitis. The gallbladder and the rest of the solid organs are normal. There is colonic diverticulosis. Pelvic contents unremarkable. Normal appendix. No acute fracture. There is a chronic compression fracture of L1. The rest of the GI tract is unremarkable. IMPRESSION: No acute findings. This document has been electronically signed by: Satya Penny MD on 06/02/2025 11:49:41 Findings: No intra-axial mass, midline shift, hydrocephalus, or acute hemorrhage. No significant atrophy-like change or white matter disease. There is no sinus or mastoid fluid. The orbits are within normal limits. No skull fracture. Involutional changes are noted. IMPRESSION: 1. No acute intracranial findings. This document has been electronically signed by: Satya Penny MD on 06/02/2025 11:42:00 Dictated By: Satya Penny MD Findings: There is mild coronary artery disease. There is mild aneurysmal dilatation of the ascending thoracic aorta which measures up to 4 cm in diameter. The visualized thyroid and mediastinum are unremarkable. There is a trace right pleural effusion. There is no evidence of pneumothorax. Renal cysts are noted. There are fractures of the anterior aspect of the right 7th 10th and 11th ribs the 11th rib is also fractured posteriorly. No other fractures are noted. IMPRESSION: 1. Multiple right-sided rib fractures as above. 2. Trace right pleural effusion. 3. Mild aneurysmal dilatation of the ascending thoracic aorta. This document has been electronically signed by: Satya Penny MD on 06/02/2025 11:41:22 Dictated By: Satay Penny MD CLINICAL HISTORY: fall 2 view left humerus Comparison: CR/SR - XR HUMERUS LEFT - 07/28/2024 12:44 PM EST Findings: No fractures or dislocations. No significant arthritic change. No radiopaque foreign body. IMPRESSION: 1. Normal left humerus. This document has been electronically signed by: Satya Penny MD on 06/02/2025 09:27:01 Dictated By: Satya Penny MD CLINICAL HISTORY: fall 3 view left elbow Comparison: None provided Findings: Bones intact. No dislocations. No significant arthritic change or erosions. No joint effusion. No radiopaque foreign body. IMPRESSION: 1. No acute findings. This document has been electronically signed by: Satya Penny MD on 06/02/2025 09:26:10 Dictated By: Satya Penny MD Critical Care Time Critical Care Time Critical Care Time: Yes Total Critical Care Time: 35 Attestation: I have personally provided critical care time exclusive of time spent on separately billable procedures. Time includes review of lab data, radiology results, discussion with consultants, and monitoring for potential decompensation. Intervention performed as documented. Discharge Plan Discharge Clinical Impression: Hypernatremia, Elevated troponin level, Ribs, multiple fractures
--- NOTE | 2025-06-02 08:22 | ECG_ITS ---
Test Reason : fall Blood Pressure : */* mmHG Vent. Rate : 78 BPM Atrial Rate : * BPM P-R Int : * ms QRS Dur : 138 ms QT Int : 432 ms P-R-T Axes : * -80 55 degrees QTcB Int : 492 ms Atrial fibrillation Left axis deviation Right bundle branch block Inferior infarct (cited on or before 28-Feb-2023) Abnormal ECG When compared with ECG of 29-May-2025 22:18, No significant change was found Referred By: Kimmy Vasquez Electronically Signed By: NICCI ELAINE
--- OUTSIDE RECORDS SUMMARY | 2025-06-02 08:44 | XMS_ITS | Encounter Summary ---
Author Organization [facility] Address [address] [place] [address] Phone Care Team Providers Care Tearer Press Clipping Name Role Phone Cedric Sarabia MD Unavailable [phone] Unknown, Unknown Primary Care Provider Manuel mays Encounter Details Date Type Department Care Team (Late Contact Info) Description 10/05/2023 Telephone [email or web address] Internal Medicine [address] [place] [address] Unknown, Unknown, MD Social History Tobacco Use [...] documented as of this encounter Care Teams Tearer Press Clipping Relationship Specialty Start Date End Date Unknown, Unknown, MD PCP - General 09/08/23 Cedric Sarabia MD [address] [place] [address] [place] [address] Pulmonary Disease 09/18/22 documented as of this encounter Additional Source Comments The information contained in this document represents components of the legal health record. It is not the complete legal health record.[facility]
[2025-06-02 08:45] LABS: MANUAL DIFF FLAG NO
--- OUTSIDE RECORDS SUMMARY | 2025-06-02 08:45 | XMS_ITS | Clinical Summary ---
Author Organization [facility] Address [address] [place] [id number] Phone Care Team Providers Care Facility Planner Name Role Phone Cedric Sarabia MD Unavailable [phone] Unknown, Unknown Primary Care Provider Manuel mays [...] pleural effusion. They will get this at [facility] and were advised today. He also has pulm f/u in the next few weeks. Will ask nsg to call and inquire what date is Pleural effusion 09/01/2023 Assessment & Plan (09/01/2023 9:41 AM EST): This was after a thoracentesis found on imaging during his admit [place] [facility] [place] [facility] covid pna-/ It was re checked and resolved as of 08/30/23 CXR. Pressure injury of skin of trochanteric region o f right hip 09/01/2023 Assessment & Plan (09/01/2023 9:36 AM EST): He has a sore on his right hip. There is a [id number] on it. Pt refused to allow me [...] Maintenance Insurance MEDICARE PART A & B [facility] MEDICARE SUPPLEMENT MEDICARE PART A & B [facility] MEDICARE SUPPLEMENT MEDICARE PART A & B [facility] MEDICARE SUPPLEMENT MEDICARE PART A & B [facility] MEDICARE SUPPLEMENT MEDICARE PART A & [place] [address] [place] [address] MEDICARE SUPPLEMENT MEDICARE PART A & B MEDICARE SUPPLEMENT MEDICARE PART A & B [facility] MEDICARE SUPPLEMENT MEDICARE PART A & B [facility] MEDICARE SUPPLEMENT MEDICARE PART A & B [facility] MEDICARE SUPPLEMENT Advance Directives For more information, please contact: [phone] (9AM - 5PM [facility]ena/[facility], Wednesday-Wednesday) Documents on File Type Date Recorded 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 It is not the complete legal health record.[facility]
[2025-06-02 08:46] LABS: Hematocrit 37.6 % (42.0-52.0); Hemoglobin 12.3 g/dl (14.0-18.0); Imm Gran Abs Auto 0.20 X10*3/uL (0.00-0.03); Imm Gran Pct Auto 1.5 % (0.0-0.4); Lymphocytes Absolute Auto 0.4 X10*3/uL (1.2-4.9); Mean Corpuscular HGB Conc 32.7 g/dl (31.0-36.0); Mean Corpuscular Hemoglobin 32.6 pg (27.0-33.0); Mean Corpuscular Volume 99.7 fL (80.0-98.0); NRBC Abs Auto 0.000 X10*3/uL (0.0-0.012); NRBC Pct Auto 0.0 /100WBC (0.0-0.2); Platelet Count 247 X10*3/uL (160-400); Red Blood Count 3.77 X10*6/uL (4.60-5.80); White Blood Count 13.1 X10*3/uL (4.8-10.8)
[2025-06-02 09:04] LABS: Alanine Aminotransferase 22 U/L (0-40); Albumin Level 3.8 g/dL (3.5-5.0); Alkaline Phosphatase 99 U/L (39-117); Anion Gap 15 (12-20); Aspartate Amino Transferase 45 U/L (5-37); Blood Urea Nitrogen 69 mg/dL (9-16); Calcium 9.2 mg/dL (8.4-10.2); Carbon Dioxide 24 mmol/L (22-29); Chloride 113 mmol/L (96-108); Creatinine Clr Calc Pharmacy 37.3; Estimated Glomerular Filt Rate 44; Magnesium 2.2 mg/dL (1.6-2.6); Potassium 4.0 mmol/L (3.3-5.1); Sodium 148 mmol/L (135-145); Total Protein 7.1 g/dL (6.5-8.0)
[2025-06-02 09:18] LABS: Troponin-I High Sensitivity 110.8 ng/L (<3.5-35.0)
[2025-06-02] MEDS: iohexoL 350 MG/ML 100 ML INFUS..BTL IV (09:49)
[2025-06-02 11:58] LABS: Troponin-I High Sensitivity 113.6 ng/L (<3.5-35.0)
[2025-06-02 13:40] LABS: Appearance Urine Clear; Glucose Urine UA Negative (Negative); PH 5.0 (5.0-9.0); Specific Gravity - Urine >= 1.030 (1.005-1.025); UMIC TRIGGER UACC YES
--- NOTE | 2025-06-02 13:40 | PM.IMHP ---
History of Present Illness Date of Service: 06/02/25 Chief Complaint: Fall 84-year-old man with a past medical history COPD on 3 L of home O2, hyperparathyroidism, osteoporosis, pneumonia, pneumothorax, encephalopathy, CHF with preserved EF, DVT on Eliquis, unspecified dementia, who presents emergency department from half-way facility after an unwitnessed fall. He has had multiple ED visits for falls and injury. He came from SNF where he was placed. Apparently he was on the ground for an unknown time. Patient has a history of dementia and is unable to answer questions appropriately. Review of Systems Review of Systems: Yes Unobtainable due to mental status [facility] Medical History (Updated 06/02/25 @ 13:50 by Estrella Moscoso NP) Insomnia Pure hypercholesterolemia Essential hypertension Pneumothorax after biopsy COPD (chronic obstructive pulmonary disease) Pulmonary emphysema Osteopenia Hyperparathyroidism Osteoporosis Vitamin D deficiency Multinodular thyroid Family History Father No problems noted. Mother No problems noted. Surgical History Hx of prostatectomy Hx of hernia repair Social History Household Members: Family Household Members Other:: 2 Housing: House Do you presently have visiting nurse or other home services: Yes Alcohol intake: never Comment: 1:1 sitter Patient Tobacco Use Status: Former Tobacco user Tobacco use type: Cigarette e-Cigarette/Vaping Use: Never Used Second Hand Smoke Exposure: Yes Advance Directives: Yes Advance Directives on File: Yes Advance Directives Date on File: 02/28/23 Do you have a plan to hurt others: No Plan service: No Current occupational status: retired Sexual orientation: Straight/Heterosexual Cognitive needs: Yes Hearing needs: No Vision needs: No Meds Allergies Allergy/AdvReac Type Severity Reaction Status Date / Time No Known Allergies Allergy Mild NONE Verified 06/02/25 08:28 cats dogs ragweed dust pollen Allergy Unknown Unknown Uncoded 06/02/25 08:28 Home Medications ?Medication ?Instructions ?Recorded ?Confirmed ?Last Taken ?Type fluticasone furoate 100 1 inh inhalation DAILY 05/17/25 06/01/25 05/24/25 History mcg-vilanterol 25 mcg/dose inhalation powder (Breo Ellipta) quetiapine 150 mg tablet 150 mg PO BEDTIME PRN agitation 05/17/25 06/01/25 05/24/25 History quetiapine 25 mg tablet 25 mg PO DAILY 05/17/25 06/01/25 05/24/25 History tiotropium bromide 2.5 2 inh inhalation DAILY COPD 05/17/25 06/01/25 05/24/25 History mcg/actuation mist for inhalation (Spiriva Respimat) memantine 10 mg tablet 10 mg PO BID 05/25/25 06/01/25 05/24/25 History apixaban 5 mg tablet 10 mg PO BID 06/01/25 06/01/25 Unknown History Physical Exam Vital Signs and Narrative: Vital Signs: Last Vital Signs Temp 97.6 F 06/02/25 08:17 Pulse 69 06/02/25 12:00 Resp 23 H 06/02/25 12:00 BP 128/74 06/02/25 12:00 Pulse Ox 96 06/02/25 12:00 O2 Del Method Room Air 06/02/25 12:00 Oxygen Flow Rate 3 06/02/25 08:17 BMI result Body Mass Index 27.3 Appearing in no acute distress head is normocephalic atraumatic eyes pupils are PERRLA sclera is anicteric mouth throat mucous membranes are intact and moist neck is supple no lymphadenopathy, no JVD noted lung sounds are clear to auscultation heart regular rate rhythm, clear S1, S2 positive bowel sounds, abdomen is soft, nontender neuro patient is alert, confused Results Labs 06/02/25 08:39 06/02/25 13:51 Labs: Laboratory Results - last 24 hr 06/02/25 06/02/25 08:39 11:01 MCV 99.7 H MCH 32.6 MCHC 32.7 RDW 12.6 Plt Count 247 MPV 10.8 Immature Gran % (Auto) 1.5 H Neut % (Auto) 88.7 H Lymph % (Auto) 3.1 L [place] % (Auto) 6.4 Eos % (Auto) 0.0 Baso % (Auto) 0.3 Lymph # (Auto) 0.4 L [place] # (Auto) 0.8 Eos # (Auto) 0.0 Baso # (Auto) 0.0 Abs Immat Gran (auto) 0.20 H Absolute Neuts (auto) 11.6 H Absolute Nucleated RBC 0.000 Nucleated RBC % (auto) 0.0 Anion Gap 15 Estim Creat Clear Calc 37.3 Estimated GFR 44 Random Glucose 125 H Calcium 9.2 Magnesium 2.2 Total Bilirubin 1.0 Direct Bilirubin 0.4 AST 45 H ALT 22 Alkaline Phosphatase 99 Total Creatine Kinase 657 H Troponin I High Sens 110.8 H* D 113.6 H* Total Protein 7.1 Albumin 3.8 Assessment and Plan (1) Essential hypertension: Status: Acute Plan 84-year-old man presenting after a fall Fall with injury Chest CTA noted for multiple rib fractures including 7th, 10th and 11th Physical therapy evaluation Out of bed with assistance Pain management Hypernatremia Possibly secondary to dehydration Received 500 cc of IV fluids in the ER Repeat BMP AZEB Likely secondary to dehydration Hold nephrotoxic medications Repeat BMP Elevated troponin Likely secondary to fall and dehydration Repeat 3rd troponin No ischemic changes noted on EKG History of paroxysmal atrial fibrillation On Eliquis Hypertension Low blood pressures Hold antihypertensives Check orthostatics Dementia Supportive care Continue Seroquel, memantine History of COPD no exacerbation Inhalers as needed DVT prophylaxis with pneumatic compression boots Quality Stroke Does the patient have a stroke diagnosis?: No VTE Prior VTE?: No VTE Risk Level:: Medical - moderate - high VTE Device Contraindication: N/A - Device Ordered VTE Drug Contraindication: Treatment Not Indicated
[2025-06-02 14:11] LABS: Osmolality, Serum 333 mosm/kg (281-305)
[2025-06-02 14:20] LABS: Anion Gap 15 (12-20); Blood Urea Nitrogen 67 mg/dL (9-16); Calcium 8.9 mg/dL (8.4-10.2); Carbon Dioxide 25 mmol/L (22-29); Chloride 113 mmol/L (96-108); Creatinine Clr Calc Pharmacy 39.4; Estimated Glomerular Filt Rate 47; Potassium 3.9 mmol/L (3.3-5.1); Sodium 149 mmol/L (135-145)
[2025-06-02 14:33] LABS: Troponin-I High Sensitivity 124.7 ng/L (<3.5-35.0)
--- NOTE | 2025-06-02 15:09 | HO.NURTONUR ---
Pt is an 84yo M coming from SNF after an unwitnessed fall. Pt has had multiple falls recently. Hx of dementia so pt is unable to give details of the falls. Unknown down time. Pt's labs significant for AZEB. CT chest shows rt sided 7th, 10th and 11th rib fxs. Pt to be admitted for management of same. Pt is alert to person only. Poor historian. TRAY. VSS. 20gLFA. Pt has received 500ml NS bolus. Male purewick in place. was called and notified of admission.
--- NOTE | 2025-06-02 16:47 | PHA.MEDREC ---
Pharmacy Consult ? Medication Reconciliation Pharmacy has completed the medication reconciliation.[facility]
[2025-06-02] MEDS: 0.9 % Sodium Chloride Flush 3 ML SYRINGE IVFLUSH (17:41)
[2025-06-03] VITALS (8 sets, daily range): BP systolic 114–148; BP diastolic 58–79; PULSE 65–87; RESP 17–18; TEMP 36.3–37.2; O2SAT 92–96
[2025-06-03] MEDS: Tiotropium Bromide 2.5 mcg 1 PUFF/2.5 MCG MIST.INHAL 2 PUFF INHALE (07:22)
[2025-06-03] MEDS: Fluticasone/Vilanterol 100/25 BLST.W.DEV 1 PUFF INHALE (07:22)
[2025-06-03 08:05] LABS: Hematocrit 36.1 % (42.0-52.0); Hemoglobin 11.4 g/dl (14.0-18.0); Mean Corpuscular HGB Conc 31.6 g/dl (31.0-36.0); Mean Corpuscular Hemoglobin 31.7 pg (27.0-33.0); Mean Corpuscular Volume 100.3 fL (80.0-98.0); NRBC Abs Auto 0.000 X10*3/uL (0.0-0.012); NRBC Pct Auto 0.0 /100WBC (0.0-0.2); Platelet Count 256 X10*3/uL (160-400); Red Blood Count 3.60 X10*6/uL (4.60-5.80); White Blood Count 13.5 X10*3/uL (4.8-10.8)
[2025-06-03 08:24] LABS: Anion Gap 16 (12-20); Blood Urea Nitrogen 71 mg/dL (9-16); Calcium 8.7 mg/dL (8.4-10.2); Carbon Dioxide 23 mmol/L (22-29); Chloride 113 mmol/L (96-108); Creatinine Clr Calc Pharmacy 39.8; Estimated Glomerular Filt Rate 52; Potassium 3.8 mmol/L (3.3-5.1); Sodium 148 mmol/L (135-145)
--- NOTE | 2025-06-03 09:44 | HO.PM.IMPN ---
Subjective Subjective Date of Service: 06/03/25 Interval History: Patient seen and examined at bedside this morning, patient's troponin trending upwards, creatinine improved to 1.4, sodium 149. Patient pleasantly demented. Review of Systems Review of Systems: Yes all other systems are reviewed and are negative Physical Exam Exam: Exam: General: AxOx2, No acute distress Head: AT/NC ENT: Moist mucous membranes Neck: supple CVS; RRR, S1 S2 normal Lungs: decrease bilateral breath sounds Abd: Soft non tender, non distended Ext: No edema and no calf tenderness MSK: moving all 4 limbs Skin: No cyanosis or edema Psych: Cooperative with exam Neurology: no focal deficit Vital Signs: Vital Signs: Last Vital Signs Temp 97.8 F 06/03/25 07:52 Pulse 75 06/03/25 07:52 Resp 18 06/03/25 07:52 BP 148/74 H 06/03/25 07:52 Pulse Ox 92 06/03/25 07:52 O2 Del Method Room Air 06/03/25 07:52 Oxygen Flow Rate 3 06/02/25 08:17 BMI result Body Mass Index 21.4 Objective Data Active Medications Acetaminophen (Acetaminophen 325 Mg Tablet) 650 mg PO Q6H PRN PRN Reason: Pain, Mild 1-3,fever,headache Apixaban (Apixaban 5 Mg Tablet) 5 mg PO BID [facility] Last Admin: 06/02/25 20:01 Dose: 5 mg Documented By: RAMYA Atorvastatin Calcium (Atorvastatin Calcium 10 Mg Tablet) 10 mg PO BEDTIME [facility] Last Admin: 06/02/25 20:01 Dose: 10 mg Documented By: RAMYA Benzonatate (Benzonatate 100 Mg Capsule) 100 mg PO TID PRN PRN Reason: Cough Bisacodyl (Bisacodyl 10 Mg Supp.Rect) 10 mg AR DAILY PRN PRN Reason: CONSTIPATION IF MOM INEFFECTIVE Calcium Carbonate (Calcium Carbonate 750 Mg Tab.Chew) 750 mg PO Q4H PRN PRN Reason: Heartburn Clopidogrel Bisulfate (Clopidogrel Bisulfate 75 Mg Tablet) 75 mg PO DAILY [facility] Fluticasone/Vilanterol (Fluticasone/Vilanterol 100/25 Blst.W.Dev) 1 puff INHALE RDAILY [facility] Last Admin: 06/03/25 07:22 Dose: 1 puff Documented By: BENITA Lactated Ringer's (Lr) 1,000 mls @ 100 mls/hr IVCONT .Q10H [facility] Lisinopril (Lisinopril 20 Mg Tablet) 20 mg PO DAILY [facility]; Protocol Magnesium Hydroxide (Milk Of Magnesia 30 Ml Oral.Susp) 30 ml PO DAILY PRN PRN Reason: Constipation Melatonin (Melatonin 3 Mg Tablet) 6 mg PO BEDTIME PRN PRN Reason: Insomnia Memantine (Memantine Hcl 10 Mg Tablet) 10 mg PO BID [facility] Last Admin: 06/02/25 20:01 Dose: 10 mg Documented By: RAMYA Ondansetron HCl (Ondansetron Hcl 4 Mg/2 Ml Vial) 4 mg IVPUSH Q8H PRN PRN Reason: Nausea and Vomiting Oxycodone HCl (Oxycodone Hcl Immed Release 5 Mg Tablet) 5 mg PO Q4H PRN PRN Reason: Pain, Severe (Pain Scale 7-10) Quetiapine Fumarate (Quetiapine Fumarate 25 Mg Tablet) 25 mg PO DAILY [facility] Quetiapine Fumarate (Quetiapine Fumarate 25 Mg Tablet) 75 mg PO BID PRN PRN Reason: ANTIPSYCHOTICS/ANTIMANIC Sodium Chloride (0.9 % Sodium Chloride Flush 3 Ml Syringe) 3 ml IVFLUSH QSHIFT [facility] Last Admin: 06/02/25 20:02 Dose: Not Given Documented By: RAMYA Non-Admin Reason: IV Running Tiotropium [place] (Tiotropium [place] 2.5 Mcg 1 Puff/2.5 Mcg Mist.Inhal) 2 puff INHALE DAILY [facility] Last Admin: 06/03/25 07:22 Dose: 2 puff Documented By: BENITA Labs 06/03/25 07:03 06/03/25 07:03 Labs: Laboratory Results - last 24 hr 06/02/25 06/02/25 06/02/25 11:01 13:31 13:32 MCV MCH MCHC RDW Plt Count MPV Absolute Nucleated RBC Nucleated RBC % (auto) Anion Gap Estim Creat Clear Calc Estimated GFR Random Glucose Osmolality 333 H Calcium Troponin I High Sens 113.6 H* Urine Color Yellow Urine Appearance Clear Urine pH 5.0 Ur Specific [place] >= 1.030 H Urine Protein 30 (1+) H Urine Glucose (UA) Negative Urine Ketones 15 Urine Blood Negative Urine Nitrite Negative Ur Leukocyte Esterase Negative Urine RBC 0-2 Urine WBC 0-5 Ur Squamous Epith Cells 0-2 Urine Bacteria None Seen Hyaline Casts 3-5 Urine Osmolality 886 Ur Random Sodium 32.0 06/02/25 06/03/25 13:51 07:03 MCV 100.3 H MCH 31.7 MCHC 31.6 RDW 13.0 Plt Count 256 MPV 11.2 Absolute Nucleated RBC 0.000 Nucleated RBC % (auto) 0.0 Anion Gap 15 16 Estim Creat Clear Calc 39.4 39.8 Estimated GFR 47 52 Random Glucose 123 H 105 Osmolality Calcium 8.9 8.7 Troponin I High Sens 124.7 H* Urine Color Urine Appearance Urine pH Ur Specific [place] Urine Protein Urine Glucose (UA) Urine Ketones Urine Blood Urine Nitrite Ur Leukocyte Esterase Urine RBC Urine WBC Ur Squamous Epith Cells Urine Bacteria Hyaline Casts Urine Osmolality Ur Random Sodium Assessment and Plan (1) Essential hypertension: Status: Acute (2) Multifactorial dementia: Status: Acute Plan 84-year-old man presenting after a fall Multiple rib fractures 7th, 10th and 11th Mechanical fall -imaging reviewed continue multimodal pain management incentive spirometer ordered Out of bed with assistance Fall precautions PT Hypernatremia, likely secondary to decreased PO on 06/03 149 s/p IV fluids in the ER, will initiate LR and continue to monitor levels Acute kidney injury, improved, likely prerenal azotemia secondary to dehydration, with hyaline casts on UA 1.4 today, continue IV fluids Repeat BMP Suspect Type 2 MD, multifactorial in setting of fall, decreased PO intake, fractures continue IV fluids telemetry Cardiology consulted History of paroxysmal atrial fibrillation On Eliquis Hypertension will give lisinopril at this time Dementia Supportive care Continue Seroquel, memantine Delirium precautions History of COPD no exacerbation Inhalers as needed DVT prophylaxis with pneumatic compression boots Total time managing care of this patient today: 55 minutes. Quality Stroke Does the patient have a stroke diagnosis?: No VTE Prior VTE?: No VTE Risk Level:: Medical - moderate - high VTE Device Contraindication: N/A - Device Ordered VTE Drug Contraindication: Treatment Not Indicated
[2025-06-03 09:47] LABS: Troponin-I High Sensitivity 188.0 ng/L (<3.5-35.0)
[2025-06-03] MEDS: 0.9 % Sodium Chloride Flush 3 ML SYRINGE IVFLUSH ×2 (10:39→20:47)
[2025-06-03] MEDS: Lactated Ringers 1,000 ML 100 ML IVCONT ×2 (10:39→20:44)
--- NOTE | 2025-06-03 12:30 | P.CONCA_ITS ---
History of Present Illness History of Present Illness Date of Service: 06/03/25 Chief complaint: fall, electrolyte abnormalities Narrative: This is a cardiology consultation regarding elevated troponins. Per documentation, history of COPD on home oxygen, CHF, many comorbidities including DVT on Eliquis, unspecified dementia presenting for an unwitnessed fall. It seems that he has had prior ER visits for falls and injury. Noted to be on the ground for unknown time. When I questioned him about any cardiac issues in the past, he states no. Currently, he denies any clear-cut symptoms like chest pains. Not clear as to how oriented he is. He is aware of the fact that he is at [facility] but then he asked me about if I am part of [place]. Review of Systems 2 Review of Systems: Yes all other systems are reviewed and are negative Constitutional: Constitutional: Reports as per HPI and Reports no additional constitutional complaints Eyes: Eyes: Reports as per HPI and Denies no additional eye complaints ENT: Denies system reviewed and no additional complaints, except as documented and Reports as per HPI Cardiovascular: Cardiovascular: Reports as per HPI, Reports no additional cardiovascular complaints, Denies acrocyanosis, Denies cool extremities, Denies chest pain, Denies leg edema, Denies lightheadedness, Denies palpitations and Denies dyspnea Respiratory: Respiratory: Reports as per HPI, Denies no additional respiratory complaints and Denies dyspnea Gastrointestinal: Gastrointestinal: Reports as per HPI and Denies no additional gastrointestinal complaints Genitourinary: Genitourinary: Reports no additional male genitourinary complaints and Reports as per HPI Musculoskeletal: Musculoskeletal: Reports no additional musculoskeletal complaints and Reports as per HPI Integumentary/Breasts: Skin/Breast: Reports system reviewed and no additional complaints, except as docu Neurologic: Reports system reviewed and no additional complaints, except as documented and Reports as per HPI Psychiatric: Psychiatric: Reports no additional psychiatric complaints and Reports as per HPI Endocrine: Endocrine: Reports no additional endocrine complaints, Reports as per HPI and Denies palpitations Hematologic/Lymphatic: Hematologic/Lymphatic: Reports no additional hematologic/lymphatic complaints and Reports as per HPI Allergic/Immunologic: Allergic/Immunologic: Reports no additional allergic/immunologic complaints and Reports as per HPI [facility] Past Medical History Medical History (Updated 06/03/25 @ 12:32 by Mahad Mott MD) Insomnia Pure hypercholesterolemia Essential hypertension Pneumothorax after biopsy COPD (chronic obstructive pulmonary disease) Pulmonary emphysema Osteopenia Hyperparathyroidism Osteoporosis Vitamin D deficiency Multinodular thyroid Family History Family History Father No problems noted. Mother No problems noted. Surgical History Surgical History Hx of prostatectomy Hx of hernia repair Social History Social History Household Members: Other Household Members Other:: 2 Housing: Alf Do you presently have visiting nurse or other home services: No Alcohol intake: never Comment: 1:1 sitter Patient Tobacco Use Status: Former Tobacco user Tobacco use type: Cigarette e-Cigarette/Vaping Use: Never Used Second Hand Smoke Exposure: Yes Currently Displaying Signs/Symptoms of Drug Intoxication Withdrawal: No Advance Directives: Yes Advance Directives on File: Yes Advance Directives Date on File: 02/28/23 Do you have a plan to hurt others: No Plan Recently lost weight without trying: Unsure How much weight loss: Unsure Eating poorly because of decreased appetite: No Nutrition screen score: 4 service: No Current occupational status: retired Sexual orientation: Straight/Heterosexual Cognitive needs: Yes Hearing needs: No Vision needs: No Meds Allergies Allergy/AdvReac Type Severity Reaction Status Date / Time No Known Allergies Allergy Mild NONE Verified 06/02/25 08:28 cats dogs ragweed dust pollen Allergy Unknown Unknown Uncoded 06/02/25 08:28 Active Medications: Current Medications Acetaminophen (Acetaminophen 325 Mg Tablet) 650 mg PO Q6H PRN PRN Reason: Pain, Mild 1-3,fever,headache Apixaban (Apixaban 5 Mg Tablet) 5 mg PO BID IKE Last Admin: 06/03/25 10:38 Dose: 5 mg Atorvastatin Calcium (Atorvastatin Calcium 10 Mg Tablet) 10 mg PO BEDTIME IKE Last Admin: 06/02/25 20:01 Dose: 10 mg Benzonatate (Benzonatate 100 Mg Capsule) 100 mg PO TID PRN PRN Reason: Cough Last Admin: 06/03/25 10:38 Dose: 100 mg Bisacodyl (Bisacodyl 10 Mg Supp.Rect) 10 mg IA DAILY PRN PRN Reason: CONSTIPATION IF MOM INEFFECTIVE Calcium Carbonate (Calcium Carbonate 750 Mg Tab.Chew) 750 mg PO Q4H PRN PRN Reason: Heartburn Clopidogrel Bisulfate (Clopidogrel Bisulfate 75 Mg Tablet) 75 mg PO DAILY [facility] Last Admin: 06/03/25 10:37 Dose: 75 mg Fluticasone/Vilanterol (Fluticasone/Vilanterol / Blst.W.Dev) 1 puff INHALE RDAILY [facility] Last Admin: 06/03/25 07:22 Dose: 1 puff Lactated Ringer's (Lr) 1,000 mls @ 100 mls/hr IVCONT .Q10H [facility] Last Admin: 06/03/25 10:39 Dose: 100 mls/hr Lisinopril (Lisinopril 20 Mg Tablet) 20 mg PO DAILY [facility]; Protocol Last Admin: 06/03/25 10:37 Dose: 20 mg Magnesium Hydroxide (Milk Of Magnesia 30 Ml Oral.Susp) 30 ml PO DAILY PRN PRN Reason: Constipation Melatonin (Melatonin 3 Mg Tablet) 6 mg PO BEDTIME PRN PRN Reason: Insomnia Memantine (Memantine Hcl 10 Mg Tablet) 10 mg PO BID [facility] Last Admin: 06/03/25 10:38 Dose: 10 mg Ondansetron HCl (Ondansetron Hcl 4 Mg/2 Ml Vial) 4 mg IVPUSH Q8H PRN PRN Reason: Nausea and Vomiting Oxycodone HCl (Oxycodone Hcl Immed Release 5 Mg Tablet) 5 mg PO Q4H PRN PRN Reason: Pain, Severe (Pain Scale 7-10) Quetiapine Fumarate (Quetiapine Fumarate 25 Mg Tablet) 25 mg PO DAILY [facility] Last Admin: 06/03/25 10:38 Dose: 25 mg Quetiapine Fumarate (Quetiapine Fumarate 25 Mg Tablet) 75 mg PO BID PRN PRN Reason: ANTIPSYCHOTICS/ANTIMANIC Sodium Chloride (0.9 % Sodium Chloride Flush 3 Ml Syringe) 3 ml IVFLUSH QSHIFT [facility] Last Admin: 06/03/25 10:39 Dose: 3 ml Tiotropium [place] (Tiotropium [place] 2.5 Mcg 1 Puff/2.5 Mcg Mist.Inhal) 2 puff INHALE DAILY [facility] Last Admin: 06/03/25 07:22 Dose: 2 puff Home Medications ?Medication ?Instructions ?Recorded ?Confirmed ?Last Taken ?Type fluticasone furoate 100 1 inh inhalation DAILY 05/1706/02/25 05/24/25 History mcg-vilanterol 25 mcg/dose inhalation powder (Breo Ellipta) quetiapine 25 mg tablet 25 mg PO DAILY 05/17/2512/2005/24/25 History tiotropium bromide 2.5 2 inh inhalation DAILY COPD 05/17/25 06/02/25 05/24/25 History mcg/actuation mist for inhalation (Spiriva Respimat) memantine 10 mg tablet 10 mg PO BID 05/25/2505/24/25 History apixaban 5 mg tablet 10 mg PO BID 06/01/25 Unknown History acetaminophen 325 mg tablet 650 mg PO Q4H PRN PAIN/FEV ER 06/02/25 06/02/25 Unknown History acetaminophen 650 mg rectal 650 mg IA Q4H PRN PAIN/FEV ER 06/02/25 06/02/25 Unknown History suppository apixaban 5 mg tablet 5 mg PO BID 06/02/25 5 Unknown History bisacodyl 10 mg rectal suppository 10 mg IA DAILY PRN CONSTIPATION IF 06/02/25 06/02/25 Unknown History MOM INEFFECTIVE doxycycline hyclate 100 mg tablet 100 mg PO BID 06/02/25 Unknown History magnesium hydroxide 400 mg/5 mL 30 ml PO DAILY PRN Con stipation 06/02/25 06/02/25 Unknown History oral suspension (Milk of Magnesia) naloxone 4 mg/actuation nasal 4 mg intranasal Q2M PRN 06/02/25 06/02/25 Unknown History spray (Narcan) SEDATION/UNRESPONSIVE quetiapine 150 mg tablet,extended 150 mg PO BEDTIME IA N 06/02/25 06/02/25 Unknown History release 24 hr (Seroquel XR) ANTIPSYCHOTICS/ANTIMANIC sodium phosphates 19 gram-7 118 ml IA DAILY PRN NO BM, 06/02/25 06/02/25 Unknown History gram/118 mL enema (Fleet Enema) BISACODYL INEFFECTIVE Physical Exam 2 Vital Signs: Vital Signs: Last Vital Signs Temp 97.7 F 06/03/25 11:48 Pulse 76 06/03/25 11:48 Resp 18 06/03/25 11:48 BP 131/78 06/03/25 11:48 Pulse Ox 96 06/03/25 11:48 O2 Del Method Nasal Cannula 06/03/25 11:48 O2 Flow Rate 2 06/03/25 11:48 Oxygen Flow Rate 3 06/02/25 08:17 BMI result Body Mass Index 21.4 Const: General: comfortable and no acute distress O rientation/consciousness: patient oriented x3 HEENT: Other: Unremarkable Head: Yes normal to inspection Neck: Neck: Yes normal visual inspection Chest: Chest palpation & inspection: normal inspection of the chest Resp: Auscultation: clear to auscultation bilaterally Cardio: Palpation: normal PMI Heart sounds: S1 normal heart sound present, S2 normal heart sound present, no gallops, no murmurs and no rubs GI: Palpation (GI): Soft to palpation Back/Spine/Pelvis: Other: unremarkable Skin: General skin exam: no rashes or lesions noted Neuro: General: patient oriented x3 Extrem: General: Yes normal to inspection Psych: Mental Status: mental status grossly normal Objective Labs and Meds 06/03/25 07:03 06/03/25 07:03 Lab results: Laboratory Results - last 24 hr 06/02/25 06/02/25 06/02/25 13:31 13:32 13:51 WBC RBC Hgb Hct MCV MCH MCHC RDW Plt Count MPV Absolute Nucleated RBC Nucleated RBC % (auto) Sodium 149 H Potassium 3.9 Chloride 113 H Carbon Dioxide 25 Anion Gap 15 BUN 67 H Creatinine 1.44 H Estim Creat Clear Calc 39.4 Estimated GFR 47 Random Glucose 123 H Osmolality 333 H Calcium 8.9 Troponin I High Sens 124.7 H* Urine Color Yellow Urine Appearance Clear Urine pH 5.0 Ur Specific [place] >= 1.030 H Urine Protein 30 (1+) H Urine Glucose (UA) Negative Urine Ketones 15 Urine Blood Negative Urine Nitrite Negative Ur Leukocyte Esterase Negative Urine RBC 0-2 Urine WBC 0-5 Ur Squamous Epith Cells 0-2 Urine Bacteria None Seen Hyaline Casts 3-5 Urine Osmolality 886 Ur Random Sodium 32.0 06/03/25 07:03 WBC 13.5 H RBC 3.60 L Hgb 11.4 L Hct 36.1 L MCV 100.3 H MCH 31.7 MCHC 31.6 RDW 13.0 Plt Count 256 MPV 11.2 Absolute Nucleated RBC 0.000 Nucleated RBC % (auto) 0.0 Sodium 148 H Potassium 3.8 Chloride 113 H Carbon Dioxide 23 Anion Gap 16 BUN 71 H Creatinine 1.32 Estim Creat Clear Calc 39.8 Estimated GFR 52 Random Glucose 105 Osmolality Calcium 8.7 Troponin I High Sens 188.0 H* D Urine Color Urine Appearance Urine pH Ur Specific [place] Urine Protein Urine Glucose (UA) Urine Ketones Urine Blood Urine Nitrite Ur Leukocyte Esterase Urine RBC Urine WBC Ur Squamous Epith Cells Urine Bacteria Hyaline Casts Urine Osmolality Ur Random Sodium ECG Interpretation: EKG with underlying atrial flutter/fibrillation with a right bundle-branch block; ventricular rate 78/Min. Cannot exclude old inferior infarct. Assessment and Plan (1) Atrial flutter by electrocardiogram: Status: Acute (2) Elevated troponin level: Status: Acute Plan EKGs with atrial flutter versus fibrillation and right bundle-branch block pattern. Previous EKGs shows sinus rhythm. In the echocardiogram, LVEF 60-65%. Moderate left ventricle hypertrophy and no significant valvular issues. Ascending aortic size 4.2 cm. Troponin levels are 110, 113, 124 and 188. Overall, atrial flutter/fibrillation with controlled rate. In the history, mention of PAF. As the rate is already controlled, no need for additional rate control agents especially in the context of conduction system disease. He is on Eliquis but when related to assess safely taking anticoagulation due to falls. With regard to troponin leak, likely type 2 NSTEMI, demand related leak. Does not appear like plaque rupture and he does not have any chest pains. No specific management for that. Procedures Date of Service Date of Service: 06/03/25
--- NOTE | 2025-06-03 13:39 | MHC.CM.PN ---
IMM GIVEN 06/03. THIS CM MET WITH PATIENT IN HIS ROOM, DUE TO DEMENTIA WITH CONFUSION, PATIENT UNABLE TO ENGAGE IN MEANINGFUL CONVERSATION. NO FAMILY PRESENT IN ROOM. THIS CM PLACED CALL TO PATIENTS SON/HCP ROBERTA CABRERA. HE STATES HIS DAD HAS BEEN TO [facility], BUT WASN'T ADMITTED DUE TO ARRIVING IN THE EVENING AND WAS ING WITH BEHAVIORS, PATIENT WAS SENT BACK TO [facility] [place]. PATIENT THEN WENT TO [facility] FOR 1 NIGHT BEFORE RETURNING TO [facility] [place] AFTER A FALL. PATIENT HAS HAD MULTIPLE HOSPITALIZATIONS INCLUDING AN INPATIENT PSYCH STAY HERE AT [facility] [place]. PATIENTS SON IS CONCERNED THAT GOING TO STR MAY NOT BE WHAT IS BEST FOR HIS DAD. PER PATIENTS SON/HCP, THE PATIENTS WOULD LIKE HIM TO RETURN HOME, THAT IS THE FAMILIES ULTIMATE GOAL, HE STATED THEY DO NOT WANT HIM GOING TO LTC. IT IS UNCLEAR IF [facility] IS WILLING TO ACCEPT PATIENT BACK TO THEIR FACILITY, RETURN REFERRAL SENT IN [facility], THEY WILL CONFIRM WITH US ON MONDAY 06/04. PATIENT DID HAVE [employer] FOR 9 HOURS/WEEKLY WHEN HE WAS AT HOME. DP: RETURN HOME WITH ADDITIONAL SERVICES, VS STR, VS INPATIENT PSYCH. TRANSPORT WILL BE VIA BLS. HCP ON FILE AND VERIFIED. PCP: DR. KIAN ZHOU
[2025-06-04] VITALS (7 sets, daily range): BP systolic 105–144; BP diastolic 58–74; PULSE 61–93; RESP 18–20; TEMP 36.3–37; O2SAT 93–100
[2025-06-04] MEDS: Lactated Ringers 1,000 ML 100 ML IVCONT ×2 (05:50→15:56)
[2025-06-04] MEDS: Tiotropium Bromide 2.5 mcg 1 PUFF/2.5 MCG MIST.INHAL 2 PUFF INHALE (08:45)
[2025-06-04] MEDS: Fluticasone/Vilanterol 100/25 BLST.W.DEV 1 PUFF INHALE (08:47)
[2025-06-04 09:27] LABS: MANUAL DIFF FLAG NO
--- NOTE | 2025-06-04 09:27 | HO.PM.IMPN ---
Subjective Subjective Date of Service: 06/04/25 Interval History: Patient seen examined at bedside this morning, patient more alert than yesterday, however per staff, has been weak. Review of Systems Review of Systems: Yes all other systems are reviewed and are negative Physical Exam Exam: Exam: General: AxOx2, No acute distress, on supplemental oxygen Head: AT/NC ENT: Moist mucous membranes Neck: supple CVS; RRR, S1 S2 normal Lungs: decrease bilateral breath sounds Abd: Soft non tender, non distended Ext: No edema and no calf tenderness MSK: moving all 4 limbs Skin: No cyanosis or edema Psych: Cooperative with exam Neurology: no focal deficit Vital Signs: Vital Signs: Last Vital Signs Temp 97.5 F 06/04/25 07:02 Pulse 93 06/04/25 08:51 Resp 18 06/04/25 08:51 BP 123/71 06/04/25 07:02 Pulse Ox 98 06/04/25 07:02 O2 Del Method Nasal Cannula 06/04/25 07:02 O2 Flow Rate 3 06/04/25 07:02 Oxygen Flow Rate 3 06/02/25 08:17 BMI result Body Mass Index 21.4 Objective Data Active Medications Acetaminophen (Acetaminophen 325 Mg Tablet) 650 mg PO Q6H PRN PRN Reason: Pain, Mild 1-3,fever,headache Apixaban (Apixaban 5 Mg Tablet) 5 mg PO BID [facility] Last Admin: 06/04/25 08:24 Dose: 5 mg Documented By: LORRAINE Atorvastatin Calcium (Atorvastatin Calcium 10 Mg Tablet) 10 mg PO BEDTIME [facility] Last Admin: 06/03/25 20:47 Dose: 10 mg Documented By: KAPIL Benzonatate (Benzonatate 100 Mg Capsule) 100 mg PO TID PRN PRN Reason: Cough Last Admin: 06/03/25 10:38 Dose: 100 mg Documented By: EUGENIO Bisacodyl (Bisacodyl 10 Mg Supp.Rect) 10 mg HI DAILY PRN PRN Reason: CONSTIPATION IF MOM INEFFECTIVE Calcium Carbonate (Calcium Carbonate 750 Mg Tab.Chew) 750 mg PO Q4H PRN PRN Reason: Heartburn Clopidogrel Bisulfate (Clopidogrel Bisulfate 75 Mg Tablet) 75 mg PO DAILY [facility] Last Admin: 06/04/25 08:24 Dose: 75 mg Documented By: LORRAINE Fluticasone/Vilanterol (Fluticasone/Vilanterol 100/25 Blst.W.Dev) 1 puff INHALE RDAILY [facility] Last Admin: 06/04/25 08:47 Dose: 1 puff Documented By: PÉREZ Lactated Ringer's (Lr) 1,000 mls @ 100 mls/hr IVCONT .Q10H [facility] Last Admin: 06/04/25 05:50 Dose: 100 mls/hr Documented By: KAPIL Lisinopril (Lisinopril 20 Mg Tablet) 20 mg PO DAILY [facility]; Protocol Last Admin: 06/04/25 08:24 Dose: 20 mg Documented By: LORRAINE Magnesium Hydroxide (Milk Of Magnesia 30 Ml Oral.Susp) 30 ml PO DAILY PRN PRN Reason: Constipation Melatonin (Melatonin 3 Mg Tablet) 6 mg PO BEDTIME PRN PRN Reason: Insomnia Memantine (Memantine Hcl 10 Mg Tablet) 10 mg PO BID [facility] Last Admin: 06/04/25 08:24 Dose: 10 mg Documented By: LORRAINE Ondansetron HCl (Ondansetron Hcl 4 Mg/2 Ml Vial) 4 mg IVPUSH Q8H PRN PRN Reason: Nausea and Vomiting Oxycodone HCl (Oxycodone Hcl Immed Release 5 Mg Tablet) 5 mg PO Q4H PRN PRN Reason: Pain, Severe (Pain Scale 7-10) Quetiapine Fumarate (Quetiapine Fumarate 25 Mg Tablet) 25 mg PO DAILY [facility] Last Admin: 06/04/25 08:24 Dose: 25 mg Documented By: LORRAINE Quetiapine Fumarate (Quetiapine Fumarate 25 Mg Tablet) 75 mg PO BID PRN PRN Reason: ANTIPSYCHOTICS/ANTIMANIC Sodium Chloride (0.9 % Sodium Chloride Flush 3 Ml Syringe) 3 ml IVFLUSH QSHIFT [facility] Last Admin: 06/04/25 08:24 Dose: Not Given Documented By: LORRAINE Non-Admin Reason: IV Running Tiotropium [place] (Tiotropium [place] 2.5 Mcg 1 Puff/2.5 Mcg Mist.Inhal) 2 puff INHALE DAILY [facility] Last Admin: 06/04/25 08:45 Dose: 2 puff Documented By: PÉREZ Labs 06/04/25 08:49 06/04/25 08:49 Labs: Laboratory Results - last 24 hr 06/03/25 07:03 Troponin I High Sens 188.0 H* D Assessment and Plan (1) Essential hypertension: Status: Acute (2) Multifactorial dementia: Status: Acute Plan 84-year-old man presenting after a fall Multiple rib fractures , 10th and 11th Mechanical fall -imaging reviewed continue multimodal pain management incentive spirometer Out of bed with assistance Fall precautions PT Hypernatremia, likely secondary to decreased PO , improved on 06/03 149 -> 146 on 06/04 s/p IV fluids in the ER, continue LR and continue to monitor levels Acute kidney injury, improved, likely prerenal azotemia secondary to dehydration, with hyaline casts on UA, improved 1.4->1.1 today, continue IV fluids Suspect Type 2 Demand ischemia, multifactorial in setting of fall, decreased PO intake, fractures continue IV fluids telemetry Cardiology consulted History of paroxysmal atrial fibrillation On Eliquis Hypertension will give lisinopril at this time Dementia Supportive care Continue Seroquel, memantine Delirium precautions History of COPD no exacerbation Inhalers as needed DVT prophylaxis with pneumatic compression boots Total time managing care of this patient today: 55 minutes. Quality Stroke Does the patient have a stroke diagnosis?: No VTE Prior VTE?: No VTE Risk Level:: Medical - moderate - high VTE Device Contraindication: N/A - Device Ordered VTE Drug Contraindication: Treatment Not Indicated
[2025-06-04 09:33] LABS: Hematocrit 36.4 % (42.0-52.0); Hemoglobin 11.6 g/dl (14.0-18.0); Imm Gran Abs Auto 0.20 X10*3/uL (0.00-0.03); Imm Gran Pct Auto 1.8 % (0.0-0.4); Lymphocytes Absolute Auto 1.1 X10*3/uL (1.2-4.9); Mean Corpuscular HGB Conc 31.9 g/dl (31.0-36.0); Mean Corpuscular Hemoglobin 32.0 pg (27.0-33.0); Mean Corpuscular Volume 100.3 fL (80.0-98.0); NRBC Abs Auto 0.020 X10*3/uL (0.0-0.012); NRBC Pct Auto 0.2 /100WBC (0.0-0.2); Platelet Count 245 X10*3/uL (160-400); Red Blood Count 3.63 X10*6/uL (4.60-5.80); White Blood Count 11.2 X10*3/uL (4.8-10.8)
[2025-06-04 09:45] LABS: Anion Gap 12 (12-20); Blood Urea Nitrogen 60 mg/dL (9-16); Calcium 8.3 mg/dL (8.4-10.2); Carbon Dioxide 25 mmol/L (22-29); Chloride 112 mmol/L (96-108); Creatinine Clr Calc Pharmacy 45.3; Estimated Glomerular Filt Rate 60; Potassium 3.3 mmol/L (3.3-5.1); Sodium 146 mmol/L (135-145)
--- NOTE | 2025-06-04 10:05 | PM.PNCARD ---
Subjective Subjective Date of Service: 06/04/25 Principal diagnosis: Persistent atrial fibrillation mild troponin leak Interval history: patient having no chest pain. Rate is adequately controlled at current point in time. Hemodynamically stable. Review of Systems Review of Systems Yes all other systems are reviewed and are negative Physical Exam Vital Signs: Last Vital Signs Temp 97.5 F 06/04/25 07:02 Pulse 93 06/04/25 08:51 Resp 18 06/04/25 08:51 BP 123/71 06/04/25 07:02 Pulse Ox 98 06/04/25 07:02 O2 Del Method Nasal Cannula 06/04/25 07:02 O2 Flow Rate 3 06/04/25 07:02 Oxygen Flow Rate 3 06/02/25 08:17 BMI result Body Mass Index 21.4 Const General: comfortable and no acute distress Orientation/consciousness: patient oriented x3 HEENT Other: Unremarkable Head: Yes normal to inspection Neck Neck: Yes normal visual inspection Chest Chest palpation & inspection: normal inspection of the chest Resp Auscultation: clear to auscultation bilaterally Cardio Palpation: normal PMI Heart sounds: S1 normal heart sound present, S2 normal heart sound present, no gallops, no murmurs and no rubs GI Palpation (GI): Soft to palpation Back/Spine/Pelvis Other: unremarkable Skin General skin exam: no rashes or lesions noted Neuro General: patient oriented x3 Extrem General: Yes normal to inspection Psych Mental Status: mental status grossly normal Objective Labs and Meds 06/04/25 08:49 06/04/25 08:49 Lab results: Laboratory Results - last 24 hr 06/04/25 08:49 WBC 11.2 H RBC 3.63 L Hgb 11.6 L Hct 36.4 L MCV 100.3 H MCH 32.0 MCHC 31.9 RDW 12.9 Plt Count 245 MPV 11.0 Immature Gran % (Auto) 1.8 H Neut % (Auto) 76.2 H Lymph % (Auto) 9.5 L [place] % (Auto) 10.4 Eos % (Auto) 1.6 Baso % (Auto) 0.5 Lymph # (Auto) 1.1 L [place] # (Auto) 1.2 Eos # (Auto) 0.2 Baso # (Auto) 0.1 Abs Immat Gran (auto) 0.20 H Absolute Neuts (auto) 8.5 H Absolute Nucleated RBC 0.020 H Nucleated RBC % (auto) 0.2 Sodium 146 H Potassium 3.3 Chloride 112 H Carbon Dioxide 25 Anion Gap 12 BUN 60 H Creatinine 1.16 Estim Creat Clear Calc 45.3 Estimated GFR 60 Random Glucose 124 H Calcium 8.3 L Progress Note: A&P Assessment and plan (1) Elevated troponin level: Status: Acute Assessment and Plan: Elevated troponin suggestive of myocardial injury related to fall and atrial fibrillation. Does not suggest primary acute coronary syndrome. No change in therapy.Will review the echocardiogram. (2) Atrial flutter by electrocardiogram: Status: Acute Assessment and Plan: Persistent atrial flutter fibrillation without any new symptoms. Given his age and no lack of symptoms will continue rate control at this point time. Already on oral anticoagulation therapy given prior venous thromboembolic disease. Will need to re-evaluate fall risk and PT consult should be considered. Will sign of the case. Thank you for allowing me to partake in his care Time Spent With Patient Time: Total time managing care of this patient today ____ minutes. Progress Note: Quality Stroke Does the patient have a stroke diagnosis?: No Procedures Date of Service Date of Service: 06/04/25
--- NOTE | 2025-06-04 10:46 | P.CDIM_ITS ---
PROVIDER RESPONSE TEXT: To clarify, the appropriate diagnosis supported by the clinical indicators: Chronic hypoxic respiratory failure QUERY TEXT: PHYSICIAN'S DOCUMENTATION REQUEST Date of Query: 06/04/2025 09:49 AM EST Patient Name: Kvng Leyva Admit Date: 06/02/2025 Dear James Khan MD, A review of the medical record indicates additional documentation may be needed. Please review below and update the documentation accordingly. Clinical Indicators: on 3L oxygen at home Please clarify which of the following accurately represents the patient's respiratory status: Chronic hypoxic respiratory failure Other (explain) Clinically unable to determine (explain) Thank you, Juli Bean RN Use of terms such as suspected, likely, concern for, or probable (associated with a specific diagnosis that is being evaluated, monitored, or treated as if it exists) are acceptable and can be coded in the inpatient setting, when documented at the time of discharge. Please use your independent medical judgment in providing your response. THIS QUERY IS PART OF THE PERMANENT MEDICAL RECORD
--- NOTE | 2025-06-04 13:16 | MHC.CM.PN ---
CHYNA spoke with , who stated that Son/HCP/Kvng should be contacted for dc planning r/t Patient's level of Dementia; CHYNA asked MD to consider invoking the HCP. CHYNA spoke with Son/HCP, who's ultimate goal is to have Patient return home with new VNA & resume [employer]. HCP is agreeable to a SNF search in case Patient's returning home is not an immediate option (MD anticipates dc on Wednesday06/06/2025).
[2025-06-04] MEDS: 0.9 % Sodium Chloride Flush 3 ML SYRINGE IVFLUSH (15:59)
[2025-06-05] MEDS: Lactated Ringers 1,000 ML 100 ML IVCONT (01:39)
[2025-06-05 03:33] VITALS: BP 131/79; PULSE 53; RESP 18; TEMP 36.6; O2SAT 99
[2025-06-05 07:40] LABS: Hematocrit 36.1 % (42.0-52.0); Hemoglobin 11.8 g/dl (14.0-18.0); Mean Corpuscular HGB Conc 32.7 g/dl (31.0-36.0); Mean Corpuscular Hemoglobin 32.5 pg (27.0-33.0); Mean Corpuscular Volume 99.4 fL (80.0-98.0); NRBC Abs Auto 0.000 X10*3/uL (0.0-0.012); NRBC Pct Auto 0.0 /100WBC (0.0-0.2); Platelet Count 223 X10*3/uL (160-400); Red Blood Count 3.63 X10*6/uL (4.60-5.80); White Blood Count 11.2 X10*3/uL (4.8-10.8)
[2025-06-05 07:55] LABS: Anion Gap 10 (12-20); Blood Urea Nitrogen 48 mg/dL (9-16); Calcium 8.0 mg/dL (8.4-10.2); Carbon Dioxide 26 mmol/L (22-29); Chloride 112 mmol/L (96-108); Creatinine Clr Calc Pharmacy 50.1; Estimated Glomerular Filt Rate > 60; Potassium 3.4 mmol/L (3.3-5.1); Sodium 145 mmol/L (135-145)
[2025-06-05 07:56] VITALS: BP 135/68; PULSE 65; RESP 16; TEMP 36.1; O2SAT 98
[2025-06-05 08:27] VITALS: BP 135/68
[2025-06-05] MEDS: Fluticasone/Vilanterol 100/25 BLST.W.DEV 1 PUFF INHALE (08:28)
[2025-06-05] MEDS: Tiotropium Bromide 2.5 mcg 1 PUFF/2.5 MCG MIST.INHAL 2 PUFF INHALE (08:28)
--- NOTE | 2025-06-05 10:44 | MHC.CM.PN ---
Per MD, Patient is medically cleared for dc to [facility]SNF today. Patient will dc to [facility] today at 12:30 PM, via [facility]. CHYNA spoke with invoked HCP/Son/Kvng @ [phone] and he is aware of and in agreement with this dc plan.
[2025-06-05 10:52] VITALS: BP 116/68; PULSE 67; RESP 16; TEMP 36.6; O2SAT 99
--- NOTE | 2025-06-05 11:08 | PM.DS ---
DS: Providers Provider Date of Service: 06/05/25 Date of admission: 06/02/25 14:06 Date of discharge: 06/05/25 Primary care physician: Alex Harvey MD Consults: 06/03/25 09:55 Consult to Cardiology Routine Consulting Provider: [facility] Reason for consultation: elevated troponins Has provider been notified: No DS: Diagnosis Discharge Diagnosis (1) Essential hypertension: Status: Acute (2) Multifactorial dementia: Status: Acute DS: Summary Hospital Course Hospital Course: 84-year-old man presenting after a fall, found to have AZEB as well as hypernatremia, started on IV fluids and pain medication. On day of discharge patient sodium 145, creatinine 1.0. Patient states that he is feeling well and wishes to go back to over he was staying at as he knows everyone there. Multiple rib fractures 7th, and 11th Mechanical fall Ambulatory dysfunction -imaging reviewed continue multimodal pain management, will give short course of oxycodone as need for chest pain incentive spirometer to decrease risk of atelectasis/pneumonia from pain Fall precautions PT as needed Hypernatremia, likely secondary to decreased PO , improved on 06/03 149 -> 146 - > 145 on discharge continue to encourage PO fluid intake Acute kidney injury, improved, likely prerenal azotemia secondary to dehydration, with hyaline casts on UA, resolved 1.4->1.0 on discharge continue to encourage PO fluid intake Suspect Type 2 Demand ischemia, multifactorial in setting of fall, decreased PO intake, fractures History of paroxysmal atrial fibrillation On Eliquis Hypertension continue home medications Dementia Supportive care Continue Seroquel, memantine Delirium precautions History of COPD no exacerbation Inhalers as needed Time Attestation Discharge Coordination Time (in mins): 35 minutes Quality: Safe Use of Opioids Does Pt have an Active Cancer Diagnosis on the Problem List?: No Quality: Stroke Does the patient have a stroke diagnosis?: No Physical Exam Exam: Exam: General: AxOx2, No acute distress, on supplemental oxygen Head: AT/NC ENT: Moist mucous membranes Neck: supple CVS; RRR, S1 S2 normal Lungs: decrease bilateral breath sounds Abd: Soft non tender, non distended Ext: No edema and no calf tenderness MSK: moving all 4 limbs Skin: No cyanosis or edema Psych: Cooperative with exam Neurology: no focal deficit Vital Signs: Vital Signs: Last Vital Signs Temp 97.8 F 06/05/25 10:52 Pulse 67 06/05/25 10:52 Resp 16 06/05/25 10:52 BP 116/68 06/05/25 10:52 Pulse Ox 99 06/05/25 10:52 O2 Del Method Nasal Cannula 06/05/25 10:52 O2 Flow Rate 2 06/05/25 10:52 Oxygen Flow Rate 3 06/02/25 08:17 BMI result Body Mass Index 21.4 DS: Data Data Completed and Pending Completed studies during hospitalization [Text1]: Procedures Drainage of Right Pleural Cavity, Percutaneous Approach (08/19/23) Labs on day of discharge: Laboratory Results - last 24 hr 06/05/25 06:56 WBC 11.2 H RBC 3.63 L Hgb 11.8 L Hct 36.1 L MCV 99.4 H MCH 32.5 MCHC 32.7 RDW 12.6 Plt Count 223 MPV 11.4 Absolute Nucleated RBC 0.000 Nucleated RBC % (auto) 0.0 Sodium 145 Potassium 3.4 Chloride 112 H Carbon Dioxide 26 Anion Gap 10 L BUN 48 H Creatinine 1.05 Estim Creat Clear Calc 50.1 Estimated GFR > 60 Random Glucose 106 Calcium 8.0 L Discharge Plan Discharge Anticipated Discharge Date/Time: 06/05/25 12:30 Patient Disposition: [facility] Discharge Diagnosis: Rib fracture Hypernatremia Acute kidney injury Referrals: [facility] [place] [Outside] - 1 Week Alex Harvey MD [Primary Care Provider, Internal Medicine] - 1 Week Discharge Medications: New oxycodone 5 mg Tablet 5 mg PO Q4H PRN (Reason: Pain, Severe (Pain Scale 7-10)) Qty: 15 0RF Rx Instructions: Partial Fill upon patient request. Continued atorvastatin 10 mg tablet 10 mg PO BEDTIME 90 Days Qty: 90 1RF lisinopril 20 mg tablet 20 mg PO DAILY 90 Days Qty: 90 1RF clopidogrel 75 mg tablet 75 mg PO DAILY 90 Days Qty: 90 3RF melatonin 3 mg Tablet 6 mg PO BEDTIME PRN (Reason: Insomnia) Qty: 60 0RF apixaban 5 mg Tablet 5 mg PO BID Rx Instructions: START 06/04/25, AFTER COMPLETING 10 MG BID quetiapine [Seroquel XR] 150 mg Tablet Extended Release 24 Hr 150 mg PO BEDTIME PRN (Reason: ANTIPSYCHOTICS/ANTIMANIC) magnesium hydroxide [Milk of Magnesia] 400 mg/5 mL Suspension 30 ml PO DAILY PRN (Reason: Constipation) bisacodyl 10 mg Suppository 10 mg NC DAILY PRN (Reason: CONSTIPATION IF MOM INEFFECTIVE) Fleet Enema 19-7 gram/118 mL Enema 118 ml NC DAILY PRN (Reason: NO BM, BISACODYL INEFFECTIVE) acetaminophen 325 mg Tablet 650 mg PO Q4H PRN (Reason: PAIN/FEVER) acetaminophen 650 mg Suppository 650 mg NC Q4H PRN (Reason: PAIN/FEVER) naloxone [Narcan] 4 mg/actuation [place],Non-Aerosol 4 mg INTRANASAL Q2M PRN (Reason: SEDATION/UNRESPONSIVE) Rx Instructions: spray 1 dose into ONE nostril; alternate nostrils w each dose until help arrives memantine 10 mg tablet 10 mg PO BID quetiapine 25 mg tablet 25 mg PO DAILY fluticasone furoate-vilanterol [Breo Ellipta] 100-25 mcg/dose blister with device 1 inh inhalation DAILY Spiriva Respimat 2.5 mcg/actuation mist 2 inh inhalation DAILY Discontinued apixaban 5 mg tablet 10 mg PO BID Rx Instructions: Take 10mg BID until 06/03/2025, then switch to 5 mg BID. doxycycline hyclate 100 mg Tablet 100 mg PO BID Rx Instructions: STARTED 06/02/25 TO 06/05/25 FOR 3 DAYS Discharge Orders: Discharge Order (Routine); Ordered 06/05/25 Ordered By: James Khan Diet: Advance to usual diet Activity on Discharge: As tolerated Stand Alone Forms: Patient Portal Discharge page Print Language: Frisian Care Plan Goals: Continue to assist with ambulation, incentive spirometer for rib fracture monitor for any worsening shortness of breath, rib fractures to heal with time Health Concerns: rib fracture hypernatremia acute kidney injury Plan of Treatment: continue with pain medications for rib fracrutes, may apply topical voltaren gel to area continue oral hydration Assessment: 84-year-old man presenting after a fall, found to have AZEB as well as hypernatremia, started on IV fluids and pain medication. On day of discharge patient sodium 145, creatinine 1.0. Patient states that he is feeling well and wishes to go back to over he was staying at as he knows everyone there. Patient Instructions: Rib Fracture (DC), Hypernatremia (DC)
== END 2025-06-05 12:57 | disposition skilled nursing facility (03) | DRG 640 ==
LOC: HO.ED 08:41 → HO.EDOVER 14:14 → HO.IMC 14:51
PROVIDERS: Physician Assistant Medical; Admitting Provider Nurse Practitioner Acute Care; Emergency Provider Emergency Medicine; PCP Internal Medicine; Visit Provider Student in an Organized Health Care Education/Training Program
DX: E87.0 Hyperosmolality and hypernatremia (principal); I21.A1 Myocardial infarction type 2; S22.41XA Multiple fractures of ribs, right side, initial encounter for closed fracture; I50.32 Chronic diastolic (congestive) heart failure; J96.11 Chronic respiratory failure with hypoxia; I48.92 Unspecified atrial flutter; J43.9 Emphysema, unspecified; E86.0 Dehydration; F03.90 Unspecified dementia, unspecified severity, without behavioral disturbance, psychotic disturbance, mood disturbance, and anxiety; I48.0 Paroxysmal atrial fibrillation; I45.10 Unspecified right bundle-branch block; I11.0 Hypertensive heart disease with heart failure; Z99.81 Dependence on supplemental oxygen; W19.XXXA Unspecified fall, initial encounter; Z79.51 Long term (current) use of inhaled steroids; Z79.899 Other long term (current) drug therapy
CPT/HCPCS: 36415; 70450; 71260; 72125; 73030; 73060; 73080; 74177; 80048; 80076; 81001; 82550; 83735; 83930; 83935; 84300; 84484; 85025; 85027; 93005; 94640; 97162; 97166; 99284; 99285; J7120; Q9967

== ENCOUNTER → 2025-06-02 08:22 | Outpatient (BNV) | payer MEDICARE, SELFPAY | PROVIDERS: Admitting Provider Nurse Practitioner Acute Care; Emergency Provider Emergency Medicine; PCP Internal Medicine; Visit Provider Internal Medicine | DX: I48.91 Unspecified atrial fibrillation (principal); I45.10 Unspecified right bundle-branch block; I25.2 Old myocardial infarction | CPT/HCPCS: 93010 ==

== ENCOUNTER → 2025-06-02 14:06 | Outpatient (BNV) | payer MEDICARE, SELFPAY | PROVIDERS: Admitting Provider Nurse Practitioner Acute Care; Emergency Provider Emergency Medicine; PCP Internal Medicine; Visit Provider Internal Medicine | DX: R79.89 Other specified abnormal findings of blood chemistry (principal); I48.92 Unspecified atrial flutter | CPT/HCPCS: 99233 ==

== ENCOUNTER → 2025-06-02 14:06 | Outpatient (BNV) | payer MEDICARE, SELFPAY | PROVIDERS: Admitting Provider Nurse Practitioner Acute Care; Emergency Provider Emergency Medicine; PCP Internal Medicine; Visit Provider Nurse Practitioner Acute Care | DX: F03.90 Unspecified dementia, unspecified severity, without behavioral disturbance, psychotic disturbance, mood disturbance, and anxiety (principal); S22.41XA Multiple fractures of ribs, right side, initial encounter for closed fracture; I10 Essential (primary) hypertension; E87.0 Hyperosmolality and hypernatremia; W19.XXXA Unspecified fall, initial encounter | CPT/HCPCS: 99222; 99232; 99239 ==